=== PATIENT | female | born 1960 | race Caucasian/White ===

== ENCOUNTER 2017-06-29 17:35 | Emergency (ER) | payer OTHER ==
[2017-06-29 17:40] VITALS: BP 142/65; PULSE 118; TEMP 99.6; BMI 30.1
[2017-06-29] MEDS ORDERED: OXYCODONE/APAP 5/325MG COMBO TABLET PO ONE (18:04)
[2017-06-29] MEDS ORDERED: OXYCODONE/APAP 5/325MG COMBO TABLET ONE (18:10)
--- NOTE | 2017-06-29 18:19 | PDOC ---
"History of Present Illness - General Chief Complaint: Injury Stated Complaint: FALL Time Seen by Provider: 06/29/17 17:44 History Source: Patient Exam Limitations: No Limitations - History of Present Illness Initial Comments: 06/29/17 18:39 Chief complaint: Fall jumping over a flower pot on side walk on public strain abrasion to left side of face, left fifth finger right knee and right lower anterior leg pain under left eye History of present illness: Patient is a 57-year-old female insulin-dependent diabetic, GERD, hyperlipidemia, hypertension or today after she tried to jump over a flower pot on the public street and fell hitting her face and knees. Patient denies any head injury any loss consciousness, any change in vision level of alertness any nausea vomiting or any hemotympanum or any dizziness or change in ability to ambulate. Patient ports having pain under her left eye that is currently a 9 out of 10. And slight discomfort to her left fifth finger and her left lower leg that is currently a 4 out of 10. Patient denies any numbness of her left hand or fingers or left leg. Patient also has an abrasion to her right knee and right lower anterior leg. She denies being on any anticoagulants. She tetanus is up-to-date. Occurred: reports: just prior to arrival Severity: reports: moderate Pain Location: reports: face (abrasion under left eye, left maxilla), lower extremity (left lower leg raised tender area, abrasion rt. knee, rt. lower extremity), upper extremity (left 5th finger abrasion tenderness) Method of Injury: Yes: fall (after trying to jump over flower pot ) Modifying Factors: improves with: None Loss of Consciousness: no loss of consciousness Associated Symptoms (Fall): other (pain left 5th finger, left lower anterior leg , left infraorbital area tenderness) Past History - Past Medical History Allergies/Adverse Reactions: Allergies Allergy/AdvReac Type Severity Reaction Status Date / Time No Known Allergies Allergy Verified 06/29/17 17:39 Home Medications: Ambulatory Orders Glimepiride [Amaryl -] 8 mg PO DAILY@0700 10/26/12 Lisinopril [Prinivil] 20 mg PO DAILY 10/26/12 Metformin HCl [Glucophage -] 850 mg PO TID 10/26/12 Omeprazole [Prilosec (RX)] 20 mg PO BID 10/26/12 Pravastatin Sodium [Pravachol -] 40 mg PO HS 10/26/12 Sitagliptin Phosphate [Januvia] 100 mg PO DAILY 10/26/12 Aspirin [ASA -] 81 mg PO DAILY 03/04/13 Ascorbate Calcium [Vitamin C] 500 mg PO DAILY 07/14/14 Calcium Carb/Vitamin D3/Vit K1 [Calcium + D Soft Chewable Tab] 1 each PO DAILY 07/14/14 Cholecalciferol (Vitamin D3) [Vitamin D3] 1,000 unit PO DAILY 07/14/14 Fenofibrate Nanocrystallized [Tricor] 145 mg PO DAILY 07/14/14 Folic Acid - 1 mg PO DAILY 07/14/14 Insulin Glargine,Hum.rec.anlog [Lantus Solostar PEN -] 10 units SQ HS 07/14/14 Insulin Glargine,Hum.rec.anlog [Lantus Solostar PEN -] 15 units SQ AM 07/14/14 Insulin Lispro [Humalog] 0 unit SQ ASDIR 07/14/14 Iron 18 mg PO DAILY 07/14/14 Multivitamins [Multivit ([facility] Formulary)] 1 tab PO DAILY 07/14/14 Acetaminophen [Tylenol] 650 mg PO Q6H #30 tablet 11/14/15 Anemia: No Asthma: No Cancer: No Cardiac Disorders: No CVA: No COPD: No CHF: No Dementia: No Diabetes: Yes GI Disorders: Yes (GERD) Disorders: No HTN: Yes Hypercholesterolemia: Yes Liver Disease: No Seizures: No Thyroid Disease: No - Surgical History Abdominal Surgery: No Appendectomy: No Cardiac Surgery: No Cholecystectomy: Yes Gastric Stapling: No (BYPASS) Lung Surgery: No Neurologic Surgery: No Orthopedic Surgery: No - Immunization History Immunization Up to Date: Yes - Psycho/Social/Smoking Cessation Hx Anxiety: No Suicidal Ideation: No Smoking Status: No Smoking History: Never smoked Have you smoked in the past 12 months: No Number of Cigarettes Smoked Daily: 0 Hx Alcohol Use: No Drug/Substance Use Hx: No Substance Use Type: None Hx Substance Use Treatment: No Review of Systems - Review of Systems Able to Perform ROS?: Yes Constitutional: No: Symptoms Reported HEENTM: No: Symptoms Reported Respiratory: No: Symptoms reported Cardiac (ROS): No: Symptoms Reported ABD/GI: No: Symptoms Reported : No: Symptoms Reported Musculoskeletal: Yes: Joint Pain (left 5th finger, left infraorbital area, left anterior lower leg, left infraorbital area ), Joint Swelling (left anterior lower leg dime size area) Integumentary: Yes: Other (abrasion left side of face infraorbital area, maxilla , left 5th dorsal finger, rt. knee and rt.lower anterior leg abrasion) Neurological: Yes: Symptoms reported *Physical Exam - Vital Signs Last Vital Signs Temp Pulse Resp BP Pulse Ox 99.6 F 118 H 20 142/65 98 06/29/17 17:36 06/29/17 17:36 06/29/17 17:36 06/29/17 17:36 06/29/17 17:36 - Physical Exam General Appearance: Yes: Appropriately Dressed HEENT: positive: EOMI, MAILE, Normal ENT Inspection, Orbits (left infraorbital tenderness) Neck: negative: Tender, Lymphadenopathy (R), Lymphadenopathy (L), Rigidity, Tender lateral, Tender midline Respiratory/Chest: positive: Lungs Clear, Normal Breath Sounds. negative: Chest Tender, Respiratory Distress Cardiovascular: positive: Regular Rhythm, Regular Rate, S1, S2 Musculoskeletal: positive: Normal Inspection. negative: CVA Tenderness, CVA Tenderness (R), CVA Tenderness (L), Vertebral Tenderness Extremity: positive: Normal Capillary Refill, Normal Range of Motion (b/l knees , ankles, left hand all digits, b/l wrists), Tender (left 5th finger abrasion dorsal aspect, rt. knee anterior abrasion, tenderness left 5th finger pip jt, dip jt has full range of motion, b/l knees no tenderness full range of motion). negative: Normal Inspection Integumentary: positive: Other (abrasion left infraorbital area, left distal maxilla superfician one 2 cm and 2 others 1 cm each, rt.knee abrasion superfical 3.5cm x0.25n cm , left lower anterior leg abrasion superfical pea size, left 5th finger dorsal aspect abrasion superfical ) Procedures - Consent Consent obtained: From Patient - Additional Procedures Progress: 06/29/17 19:04 Cleanse on left fifth finger and right knee and right lower extremity and left side of face with Betadine and normal saline 0.9% dried areas and tiny amount of bacitracin ointment applied with a Band-Aid to all areas except for left sided face ED Treatment Course - Medications Given in the ED: ED Medications Discontinued Medications Generic Name Dose Route Start Last Admin Trade Name Silvia PRN Reason Stop Dose Admin Oxycodone/Acetaminophen 1 combo 06/29/17 18:04 06/29/17 18:12 Percocet 5/325 - PO 06/29/17 18:05 1 combo ONCE ONE Administration Medical Decision Making - Medical Decision Making 06/29/17 18:42 Patient is a 57-year-old female insulin-dependent diabetic, GERD, hyperlipidemia , hypertension or today after she tried to jump over a flower pot on the public street and fell hitting her face and knees. Patient denies any head injury any loss consciousness, any change in vision level of alertness any nausea vomiting or any hemotympanum or any dizziness or change in ability to ambulate. Patient ports having pain under her left eye that is currently a 9 out of 10. And slight discomfort to her left fifth finger and her left lower leg that is currently a 4 out of 10. Patient denies any numbness of her left hand or fingers or left leg. Patient also has an abrasion to her right knee and right lower anterior leg. She denies being on any anticoagulants. She tetanus is up-to -date. Fall abrasion left side of face abrasion left 5th finger contusion left lower leg anterior pain left infraorbital area R/O fracture pain left 5th finger r/o fracture pain left lower anterior leg r/o fracture Rule out orbital fracture on left PLAN: CT of orbital without contrast no orbital fx noted Dr. Coates xray left 5th finger, no fracture noted xray left tibia/fibia no fracture noted percocet 5mg/325mg po now Search Terms: Paula Knox, 1960 Search Date: 06/29/2017 07:03:26 PM The Drug Utilization Report below displays all of the controlled substance prescriptions, if any, that your patient has filled in the last twelve months. The information displayed on this report is compiled from pharmacy submissions to the Department, and accurately reflects the information as submitted by the pharmacies. This report was requested by: Gabriella Angelo | Reference #: [id number] Patient Name: Paula Knox Date: 1960 Address: [address] [place] [address] Sex: Female Rx Written Rx Dispensed Drug Quantity Days Supply Prescriber Name 06/04/2017 06/04/2017 oxycodone-acetaminophen 5-325 mg tab 90 30 Luis Reeder 06/29/17 19:26 06/29/17 19:51 06/30/17 18:39 06/30/17 18:40 *DC/Admit/Observation/Transfer Diagnosis at time of Disposition: Nasal bone fracture Abrasion of finger of left hand Qualifiers: Encounter type: initial encounter Qualified Code(s): S60.419A - Abrasion of unspecified finger, initial encounter Abrasion of face Qualifiers: Encounter type: initial encounter Qualified Code(s): S00.81XA - Abrasion of other part of head, initial encounter Abrasion of knee, right Qualifiers: Encounter type: initial encounter Qualified Code(s): S80.211A - Abrasion, right knee, initial encounter Contusion of lower leg, left Qualifiers: Encounter type: initial encounter Qualified Code(s): S80.12XA - Contusion of left lower leg, initial encounter - Discharge Dispostion Disposition: HOME Condition at time of disposition: Stable - Referrals Referrals: Alida Ramires MD [Primary Care Provider] - Yohan Lynn MD [Staff Physician] - - Patient Instructions Additional Instructions: You must follow-up with ENT (referral provided) within the next 2 days for evaluation of your nasal bone fracture. Wash abrasions with antibacterial soap and water pat dry twice daily and apply a tiny amount of bacitracin ointment keep area is covered with Band-Aids except when home and in bed. Return to emergency room if any redness and abrasions or any discharge from them or any fever develops. Elevate your left leg and apply ice to raised area as much as possible today and tomorrow. Take the pain medication that you have had previous prescribed for you."
--- NOTE | 2017-06-29 20:12 | PDOC ---
*Physical Exam - Vital Signs Last Vital Signs Temp Pulse Resp BP Pulse Ox 99.6 F 118 H 20 142/65 98 06/29/17 17:36 06/29/17 17:36 06/29/17 17:36 06/29/17 17:36 06/29/17 17:36 - Physical Exam Comments: 06/29/17 20:07 Sign-out received from outgoing fast track provider Gi. Pt interviewed and examined. Awaiting CT scan. CT scan: There is no evidence of acute fracture. There is a mildly displaced left nasal bone fracture without overlying soft tissue swelling consistent with sequela of previous fracture. 2. The orbital contents are unremarkable in appearance. 3. The paranasal and mastoid sinuses are unremarkable in appearance. 4. Left facial soft tissue swelling. Read by: Dagmar Valente MD ENT referral provided. Advised patient to f/u within the next 1-2 days for evaluation of nasal bone fracture. Advised patient of signs and symptoms for return to ER; patient verbalized understanding and agrees to plan. ED Treatment Course - Medications Given in the ED: ED Medications Discontinued Medications Generic Name Dose Route Start Last Admin Trade Name Freq PRN Reason Stop Dose Admin Oxycodone/Acetaminophen 1 combo 06/29/17 18:04 06/29/17 18:12 Percocet 5/325 - PO 06/29/17 18:05 1 combo ONCE ONE Administration *DC/Admit/Observation/Transfer Diagnosis at time of Disposition: Abrasion of finger of left hand Qualifiers: Encounter type: initial encounter Qualified Code(s): S60.419A - Abrasion of unspecified finger, initial encounter Abrasion of face Qualifiers: Encounter type: initial encounter Qualified Code(s): S00.81XA - Abrasion of other part of head, initial encounter Abrasion of knee, right Qualifiers: Encounter type: initial encounter Qualified Code(s): S80.211A - Abrasion, right knee, initial encounter Contusion of lower leg, left Qualifiers: Encounter type: initial encounter Qualified Code(s): S80.12XA - Contusion of left lower leg, initial encounter Nasal bone fracture Qualifiers: Encounter type: sequela Fracture type: closed Qualified Code(s): S02.2XXS - Fracture of nasal bones, sequela - Discharge Dispostion Disposition: HOME Condition at time of disposition: Stable Admit: No - Referrals Referrals: Alida Ramires MD [Primary Care Provider] - Yohan Lynn MD [Staff Physician] - - Patient Instructions Additional Instructions: You must follow-up with ENT (referral provided) within the next 2 days for evaluation of your nasal bone fracture. Wash abrasions with antibacterial soap and water pat dry twice daily and apply a tiny amount of bacitracin ointment keep area is covered with Band-Aids except when home and in bed. Return to emergency room if any redness and abrasions or any discharge from them or any fever develops. Elevate your left leg and apply ice to raised area as much as possible today and tomorrow. Take the pain medication that you have had previous prescribed for you. - Post Discharge Activity
== END 2017-06-29 20:23 | disposition home or self-care (01) ==
LOC: JERFT 17:35
DX: S00.83XA Contusion of other part of head, initial encounter (principal); W18.39XA Other fall on same level, initial encounter; Y93.39 Activity, other involving climbing, rappelling and jumping off; Y92.480 Sidewalk as the place of occurrence of the external cause; I10 Essential (primary) hypertension; E11.9 Type 2 diabetes mellitus without complications; Z79.4 Long term (current) use of insulin; Z79.84 Long term (current) use of oral hypoglycemic drugs; K21.9 Gastro-esophageal reflux disease without esophagitis; E78.5 Hyperlipidemia, unspecified
CPT/HCPCS: 70480-TC; 73140-TC-LT; 73590-TC-LT; 99281-25

== ENCOUNTER 2017-10-20 12:26 | Emergency (ER) | payer OTHER ==
[2017-10-20 12:47] VITALS: BP 124/78; PULSE 99; TEMP 99.4; BMI 33.6
--- NOTE | 2017-10-20 13:32 | PDOC ---
History of Present Illness - General Chief Complaint: Cold Symptoms Stated Complaint: FLU LIKE SYMPTOMS Time Seen by Provider: 10/20/17 13:31 - History of Present Illness Initial Comments: 10/20/17 13:31 CHIEF COMPLAINT: UTI, "flu" HISTORY OF PRESENT ILLNESS: 57 yo F with hx of IDDM, HTN, HLD, arthritis ( followed by pain management), and recurrent UTIs presents to fast track with "flu symptoms" and complaints that she "has a UTI." Patient states she has had body aches, sneezing, nasal cngestion, and cough x 1 week. She denies any nausea, vomiting, or diarrhea. PAST MEDICAL HISTORY: Denies past medical history FAMILY HISTORY: Denies SOCIAL HISTORY: Denies tobacco, alcohol, illicit drug use. SURGICAL HISTORY: Denies ALLERGIES: No known drug allergies REVIEW OF SYSTEMS General/Constitutional: Denies fever or chills. Denies weakness. HEENT: Sore throat, runny nose, congestion x 1 week. Cardiovascular: Denies chest pain or shortness of breath. Respiratory: Cough x 1 week. Denies wheezing, or hemoptysis. Gastrointestinal: Denies nausea, vomiting, diarrhea or constipation. Denies rectal bleeding. Genitourinary: Urinary pain and frequency, left flank pain. Musculoskeletal: Chronic back pain secondary to arthritis. Denies joint or muscle swelling or pain. Denies neck or back pain. Skin and breasts: Denies rash or easy bruising. PHYSICAL EXAM General Appearance: Well-appearing, appropriately dressed. No apparent distress. HEENT: EOMI, PERRLA. No conjunctival pallor. No photophobia, scleral icterus. Neck: Supple. Trachea midline. No tenderness, rigidity, carotid bruit, stridor , lymphadenopathy, or thyromegaly. Respiratory/Chest: Lungs CTAB. No shortness of breath, chest tenderness, respiratory distress, accessory muscle use. No crackles, rales, rhonchi, stridor , wheezing, dullness Cardiovascular: RRR. S1, S2. Gastrointestinal/Abdominal: Normal bowel sounds. Abdomen soft, non-distended. No tenderness or rebound tenderness. No organomegaly, pulsatile mass, guarding , hernia, hepatomegaly, splenomegaly. Lymphatic: No adenopathy, tenderness. Musculoskeletal/Extremities: L CVA tenderness. Normal inspection. FROM of all extremities, normal capillary refill. Pelvis Stable. No tenderness to extremities, pedal edema, swelling, erythema or deformity. Integumentary: Appropriate color, dry, warm. 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 Fully oriented, alert. Appropriate mood/affect. Motor strength 5/5. No appreciable EOM palsy, facial droop or sensory deficit. Past History - Past Medical History Allergies/Adverse Reactions: Allergies Allergy/AdvReac Type Severity Reaction Status Date / Time No Known Allergies Allergy Verified 10/20/17 12:43 Home Medications: Ambulatory Orders Glimepiride [Amaryl -] 8 mg PO DAILY@0700 10/26/12 Lisinopril [Prinivil] 20 mg PO DAILY 10/26/12 Metformin HCl [Glucophage -] 850 mg PO TID 10/26/12 Omeprazole [Prilosec (RX)] 20 mg PO BID 10/26/12 Pravastatin Sodium [Pravachol -] 40 mg PO HS 10/26/12 Sitagliptin Phosphate [Januvia] 100 mg PO DAILY 10/26/12 Aspirin [ASA -] 81 mg PO DAILY 03/04/13 Ascorbate Calcium [Vitamin C] 500 mg PO DAILY 07/14/14 Calcium Carb/Vitamin D3/Vit K1 [Calcium + D Soft Chewable Tab] 1 each PO DAILY 07/14/14 Cholecalciferol (Vitamin D3) [Vitamin D3] 1,000 unit PO DAILY 07/14/14 Fenofibrate Nanocrystallized [Tricor] 145 mg PO DAILY 07/14/14 Folic Acid - 1 mg PO DAILY 07/14/14 Insulin Glargine,Hum.rec.anlog [Lantus Solostar PEN -] 10 units SQ HS 07/14/14 Insulin Glargine,Hum.rec.anlog [Lantus Solostar PEN -] 15 units SQ AM 07/14/14 Insulin Lispro [Humalog] 0 unit SQ ASDIR 07/14/14 Iron 18 mg PO DAILY 07/14/14 Multivitamins [Multivit ([facility] Formul[facility])] 1 tab PO DAILY 07/14/14 Acetaminophen [Tylenol] 650 mg PO Q6H #30 tablet 11/14/15 Fluconazole [Diflucan] 150 mg PO ONCE #1 tablet 10/20/17 Pseudoephedrine HCl [Sudafed 12 Hour] 120 mg PO BID #14 tablet.er 10/20/17 Anemia: No Asthma: No Cancer: No Cardiac Disorders: No CVA: No COPD: No CHF: No Dementia: No Diabetes: Yes (iddm) GI Disorders: Yes (GERD) Disorders: No HTN: Yes Hypercholesterolemia: Yes Liver Disease: No Seizures: No Thyroid Disease: No - Surgical History Abdominal Surgery: No Appendectomy: No Cardiac Surgery: No Cholecystectomy: Yes Gastric Stapling: No (BYPASS) Lung Surgery: No Neurologic Surgery: No Orthopedic Surgery: No - Immunization History Immunization Up to Date: Yes - Suicide/Smoking/Psychosocial Hx Smoking Status: No Smoking History: Never smoked Have you smoked in the past 12 months: No Number of Cigarettes Smoked Daily: 0 Information on smoking cessation initiated: No Hx Alcohol Use: No Drug/Substance Use Hx: No Substance Use Type: None Hx Substance Use Treatment: No *Physical Exam - Vital Signs Last Vital Signs Temp Pulse Resp BP Pulse Ox 99.4 F 99 H 18 124/78 100 10/20/17 12:44 10/20/17 12:44 10/20/17 12:44 10/20/17 12:44 10/20/17 12:44 Medical Decision Making - Medical Decision Making 10/20/17 14:02 57 yo F with hx of IDDM, HTN, HLD, arthritis (followed by pain management), and recurrent UTIs presents to fast track with "flu symptoms" and complaints that she "has a UTI." -flu swab -ua, ucx Patient c/o of severe pain to back accompanied by severe L flank pain. Patient has home med of 10 mg Percocet per pain management, no signs of narcotic abuse per [facility]. Will give 1 Percocet for pain at this time. 10/20/17 14:29 UA negative for UTI. Patient now reports that she also has had "like yeast" discharge and that she has been using OTC creams without relief. -150 mg Diflucan *DC/Admit/Observation/Transfer Diagnosis at time of Disposition: Vaginal candidiasis, Viral syndrome - Discharge Dispostion Disposition: HOME Condition at time of disposition: Stable Admit: No - Prescriptions Prescriptions: Fluconazole [Diflucan] 150 mg PO ONCE #1 tablet Pseudoephedrine HCl [Sudafed 12 Hour] 120 mg PO BID #14 tablet.er - Referrals - Patient Instructions Printed Discharge Instructions: DI for Vaginal Yeast Infection, DI for Viral Syndrome Additional Instructions: Please get plenty of rest and drink plenty of fluids for adequate hydration. Take Motrin as needed for fever or bodyaches. Follow up with your primary care doctor if symptoms persist past 3-5 days. Continue taking the Percocet as prescribed by you pain management doctor. If you develop fever unrelieved by Motrin, vomiting, diarrhea, or any new or worsening symptoms, please return to the ER. - Post Discharge Activity
[2017-10-20 13:48] LABS: URINE APPEARANCE CLEAR; URINE BILIRUBIN NEGATIVE (NEGATIVE); URINE BLOOD NEGATIVE (NEGATIVE); URINE COLOR STRAW; URINE GLUCOSE (UA) NEGATIVE (NEGATIVE); URINE KETONE NEGATIVE (NEGATIVE); URINE NITRITE NEGATIVE (NEGATIVE); URINE PROTEIN NEGATIVE (NEGATIVE); URINE UROBILINOGEN NEGATIVE mg/dL (0.2-1.0)
[2017-10-20 18:15] LABS: URINE LEUK ESTERASE Negative (NEGATIVE)
== END 2017-10-20 15:08 | disposition home or self-care (01) ==
LOC: JERFT 12:26
DX: B37.3 Candidiasis of vulva and vagina (principal); B34.9 Viral infection, unspecified; I10 Essential (primary) hypertension; E11.9 Type 2 diabetes mellitus without complications; Z79.4 Long term (current) use of insulin; Z79.84 Long term (current) use of oral hypoglycemic drugs; E78.00 Pure hypercholesterolemia, unspecified; K21.9 Gastro-esophageal reflux disease without esophagitis
CPT/HCPCS: 81003; 87086; 87804; 99281-25

== ENCOUNTER 2018-01-19 12:31 | Emergency (ER) | payer OTHER ==
--- NOTE | 2018-01-19 12:51 | PDOC ---
History of Present Illness - General History Source: Patient Exam Limitations: No Limitations - History of Present Illness Initial Comments: 01/19/18 14:32 The patient is a 57 year old female with a significant PMH of hypertension, hyperlipidemia, GERD, and IDDM who presents to the emergency department with bilateral leg swelling and pain for the past 2 days. The patient states the swelling is worse on the left leg with associated warmth, swelling preceded pain. The patient denies any recent trauma. The patient states she had the flu approximately 3 weeks ago but is still experiencing dry cough. The patient reports she had not been taking her HTN meds for about a month. The patient denies chest pain, shortness of breath, headache and dizziness. Denies fever, chills, nausea, vomit, diarrhea and constipation. Denies dysuria, frequency, urgency and hematuria. Allergies: NKA Past surgical history: Cholecystectomy Social history: No reported alcohol, drug, or cigarette use. <Capri Bain - Last Filed: 01/19/18 14:42> <Dagmar Cotton - Last Filed: 01/20/18 11:13> - General Chief Complaint: Edema Stated Complaint: SWELLING FEET Time Seen by Provider: 01/19/18 12:51 Past History <Capri Bain - Last Filed: 01/19/18 14:42> - Past Medical History Anemia: No Asthma: No Cancer: No Cardiac Disorders: No CVA: No COPD: No CHF: No Dementia: No Diabetes: Yes (iddm) GI Disorders: Yes (GERD) Disorders: No HTN: Yes Hypercholesterolemia: Yes Liver Disease: No Seizures: No Thyroid Disease: No - Surgical History Abdominal Surgery: No Appendectomy: No Cardiac Surgery: No Cholecystectomy: Yes Gastric Stapling: No (BYPASS) Lung Surgery: No Neurologic Surgery: No Orthopedic Surgery: No - Immunization History Immunization Up to Date: Yes - Suicide/Smoking/Psychosocial Hx Smoking Status: No Smoking History: Never smoked Have you smoked in the past 12 months: No Number of Cigarettes Smoked Daily: 0 Hx Alcohol Use: No Drug/Substance Use Hx: No Substance Use Type: None Hx Substance Use Treatment: No <Dagmar Cotton - Last Filed: 01/20/18 11:13> - Past Medical History Allergies/Adverse Reactions: Allergies Allergy/AdvReac Type Severity Reaction Status Date / Time No Known Allergies Allergy Verified 01/19/18 12:53 Home Medications: Ambulatory Orders Glimepiride [Amaryl -] 8 mg PO DAILY@0700 10/26/12 Lisinopril [Prinivil] 20 mg PO DAILY 10/26/12 Omeprazole [Prilosec (RX)] 20 mg PO BID 10/26/12 Pravastatin Sodium [Pravachol -] 40 mg PO HS 10/26/12 Sitagliptin Phosphate [Januvia] 100 mg PO DAILY 10/26/12 metFORMIN HCL [Glucophage -] 850 mg PO TID 10/26/12 Aspirin [ASA -] 81 mg PO DAILY 03/04/13 Calcium Carb/Vitamin D3/Vit K1 [Calcium + D Soft Chewable Tab] 1 each PO DAILY 07/14/14 Cholecalciferol (Vitamin D3) [Vitamin D3] 1,000 unit PO DAILY 07/14/14 Fenofibrate Nanocrystallized [Tricor] 145 mg PO DAILY 07/14/14 Insulin Glargine,Hum.rec.anlog [Lantus Solostar PEN -] 20 units SQ HS 07/14/14 Insulin Lispro [Humalog] 0 unit SQ ASDIR 07/14/14 Multivitamins [Multivit ([facility] Formulary)] 1 tab PO DAILY 07/14/14 Lisinopril 20 mg PO DAILY #30 tablet 01/19/18 Pravastatin Sodium [Pravachol (Nf)] 40 mg PO HS #30 tablet 01/19/18 Review of Systems - Review of Systems Able to Perform ROS?: Yes Comments:: 01/19/18 14:42 GENERAL/CONSTITUTIONAL: No fever or chills. No weakness. HEAD, EYES, EARS, NOSE AND THROAT: No change in vision. No ear pain or discharge. No sore throat. CARDIOVASCULAR: No chest pain or shortness of breath. RESPIRATORY: (+) Dry cough. No wheezing or hemoptysis. GASTROINTESTINAL: No nausea, vomiting, diarrhea or constipation. GENITOURINARY: No dysuria, frequency, or change in urination. MUSCULOSKELETAL: (+) Bilateral leg swelling and pain, L>R. No neck or back pain. SKIN: No rash NEUROLOGIC: No headache, vertigo, loss of consciousness, or change in strength/ sensation. ENDOCRINE: No increased thirst. No abnormal weight change. HEMATOLOGIC/LYMPHATIC: No anemia, easy bleeding, or history of blood clots. ALLERGIC/IMMUNOLOGIC: No hives or skin allergy. <Capri Bain - Last Filed: 01/19/18 14:42> *Physical Exam - Vital Signs Last Vital Signs Temp Pulse Resp BP Pulse Ox 99.9 F H 92 H 16 193/81 100 01/19/18 12:51 01/19/18 12:51 01/19/18 12:51 01/19/18 12:51 01/19/18 12:51 <Capri Bain - Last Filed: 01/19/18 14:42> - Physical Exam Comments: GENERAL: Awake, alert, and fully oriented, in no acute distress HEAD: No signs of trauma EYES: PERRLA, EOMI, sclera anicteric, conjunctiva clear ENT: Auricles normal inspection, hearing grossly normal, nares patent, oropharynx clear without exudates. Moist mucosa NECK: Normal ROM, supple, no lymphadenopathy, JVD, or masses LUNGS: Breath sounds equal, clear to auscultation bilaterally. No wheezes, and no crackles HEART: Regular rate and rhythm, normal S1 and S2, no murmurs, rubs or gallops ABDOMEN: Soft, nontender, normoactive bowel sounds. No guarding, no rebound. No masses EXTREMITIES: Normal range of motion, 1+ pitting edema to mid-lott B/L. No clubbing or cyanosis. No cords, erythema, or tenderness NEUROLOGICAL: Cranial nerves II through XII grossly intact. Normal speech, normal gait SKIN: Warm, Dry, normal turgor, no rashes or lesions noted. <Dagmar Cotton - Last Filed: 01/20/18 11:13> ED Treatment Course - LABORATORY CBC & Chemistry Diagram: 01/19/18 15:20 01/19/18 15:20 <Dagmar Cotton - Last Filed: 01/20/18 11:13> Medical Decision Making - Medical Decision Making No signs of cellulitis on exam. She has dependent edema that is equal bilaterally. BNP is not significantly elevated, no signs of kidney failure. Will refer to PMD outpatient, as she has an appointment in 2 days. <Dagmar Cotton - Last Filed: 01/20/18 11:13> *DC/Admit/Observation/Transfer <Capri Bain - Last Filed: 01/19/18 14:42> - Discharge Dispostion Admit: No <Dagmar Cotton - Last Filed: 01/20/18 11:13> Diagnosis at time of Disposition: Peripheral edema - Discharge Dispostion Disposition: HOME Condition at time of disposition: Stable - Prescriptions Prescriptions: Lisinopril 20 mg PO DAILY #30 tablet Pravastatin Sodium [Pravachol (Nf)] 40 mg PO HS #30 tablet - Patient Instructions Printed Discharge Instructions: DI for Peripheral Edema -- Bilateral
[2018-01-19 12:54] VITALS: PULSE 92; TEMP 99.9; BMI 35.4
[2018-01-19] MEDS ORDERED: LISINOPRIL 20 MG TABLET (FP) PO ONE (14:07)
[2018-01-19 15:42] LABS: BASO % 0.6 % (0-2.0); EOS % 2.9 % (0-4.5); HEMATOCRIT 32.5 % (32.4-45.2); HEMOGLOBIN 9.9 GM/dL (10.7-15.3); LYMPH % 23.5 % (8-40); MCHC 30.4 g/dl (32.0-36.0); MEAN CELL VOLUME 69.2 fl (80-96); MEAN PLT VOLUME 8.2 fl (7.5-11.1); MONO % 5.9 % (3.8-10.2); NEUT % 67.1 % (42.8-82.8); PLATELET COUNT 260 K/MM3 (134-434); RDW 18.2 % (11.6-15.6); WHITE BLOOD COUNT 10.2 K/mm3 (4.0-10.0)
[2018-01-19 15:45] LABS: ADD RBC MORPHOLOGY YES
[2018-01-19 15:58] LABS: URINE APPEARANCE CLEAR; URINE BILIRUBIN NEGATIVE (NEGATIVE); URINE BLOOD NEGATIVE (NEGATIVE); URINE COLOR STRAW; URINE GLUCOSE (UA) 3+ (NEGATIVE); URINE KETONE TRACE (NEGATIVE); URINE LEUK ESTERASE NEGATIVE (NEGATIVE); URINE NITRITE NEGATIVE (NEGATIVE); URINE PROTEIN NEGATIVE (NEGATIVE); URINE UROBILINOGEN NEGATIVE mg/dL (0.2-1.0)
[2018-01-19 16:08] LABS: ALBUMIN 4.2 g/dl (3.4-5.0); ANION GAP 12 (8-16); BLOOD UREA NITROGEN 21 mg/dL (7-18); CALCIUM 8.7 mg/dL (8.5-10.1); CHLORIDE 101 mmol/L (98-107); CO2 23 mmol/L (21-32); CREATININE 0.9 mg/dL (0.55-1.02); GLUCOSE,RANDOM 249 mg/dL (74-106); POTASSIUM 5.1 mmol/L (3.5-5.1); SGOT/AST 20 U/L (15-37); SGPT/ALT 25 U/L (12-78); SODIUM 136 mmol/L (136-145)
[2018-01-19] MEDS ORDERED: LISINOPRIL 20 MG TABLET (FP) ONE (16:11)
[2018-01-19 16:13] LABS: ALK PHOS 84 U/L (45-117); BILIRUBIN,TOTAL 0.3 mg/dL (0.2-1.0); N-TERMINAL BNP 176.41 pg/ml (5-125); TOT PROT 7.3 g/dl (6.4-8.2)
[2018-01-19 17:03] VITALS: BP 164/85
[2018-01-19 18:43] LABS: ANISOCYTOSIS 2+
--- NOTE | 2018-01-21 17:11 | EKG ---
Test Reason : Blood Pressure : / mmHG Vent. Rate : 084 BPM Atrial Rate : 084 BPM P-R Int : 128 ms QRS Dur : 070 ms QT Int : 356 ms P-R-T Axes : -01 009 021 degrees QTc Int : 420 ms NORMAL SINUS RHYTHM LOW VOLTAGE QRS SEPTAL INFARCT , AGE UNDETERMINED ABNORMAL ECG WHEN COMPARED WITH ECG OF 14-JUL-2014 15:53, SINUS RHYTHM HAS REPLACED JUNCTIONAL RHYTHM QT HAS SHORTENED Confirmed by DEION TARANGO, ENRICO ([id number]) on 01/21/2018 5:11:08 PM Referred By: Confirmed By:ENRICO ALBARRAN MD
== END 2018-01-19 17:01 | disposition home or self-care (01) ==
LOC: JER 12:31
DX: R60.0 Localized edema (principal); I10 Essential (primary) hypertension; E11.9 Type 2 diabetes mellitus without complications; Z79.4 Long term (current) use of insulin; Z79.84 Long term (current) use of oral hypoglycemic drugs; E78.00 Pure hypercholesterolemia, unspecified
CPT/HCPCS: 36415; 71046-TC-FY; 80053; 81003; 83880; 85025; 87086; 93005; 93010; 99282-25

== ENCOUNTER 2018-06-25 12:28 | Inpatient (IN) | payer OTHER ==
[2018-06-25] MEDS ORDERED: SODIUM CHLORIDE 1,000 ML IV STA ×2 (12:52→15:57)
--- NOTE | 2018-06-25 12:52 | PDOC ---
History of Present Illness - General Chief Complaint: Blood Sugar Problem Stated Complaint: SEPTIC Time Seen by Provider: 06/25/18 12:39 - History of Present Illness Initial Comments: 06/25/18 13:46 Patient is a 58-year-old female with past medical history of insulin-dependent diabetes, hypertension, hyperlipidemia, GERD, opioid dependence, who presents to the emergency department today with fatigue and weakness for one month. Patient has a senior software architect who is at bedside at this time. The reproductive healthcare assistant states that the patient has been feeling ill for the past month and appeared pale and weak upon his visit today. He reports that she has been having diarrhea for over a month. She had 3 loose stools between the hours of 10 and 12 today. Patient also admits to abdominal pain. She states that the abdominal pain is diffuse but mostly in the right lower quadrant. She denies fevers, chills, short of breath, difficulty breathing. Denies frequency and urgency. Given her weakness and 911 was called and she was found to be hypotensive at 60/40. Patient was given 1500 mL of fluids and blood pressure came up to 88/60. Upon further discussion with the reproductive healthcare assistant, she's been noncompliant with doctor's appointments. She was informed that she had a hemoglobin of 6 and needed transfusion however she never went to an emergency department to receive treatment. She's also had poor control of her blood sugar recently to which the doctors were changing her medications. Past History - Travel Traveled outside of the country in the last 30 days: No Close contact w/someone who was outside of country & ill: No - Past Medical History Allergies/Adverse Reactions: Allergies Allergy/AdvReac Type Severity Reaction Status Date / Time No Known Allergies Allergy Verified 01/19/18 12:53 Home Medications: Ambulatory Orders Glimepiride [Amaryl -] 8 mg PO DAILY@0700 10/26/12 Lisinopril [Prinivil] 10 mg PO DAILY 10/26/12 Pravastatin Sodium [Pravachol -] 80 mg PO HS 10/26/12 Sitagliptin Phosphate [Januvia] 100 mg PO DAILY 10/26/12 metFORMIN HCL [Glucophage -] 850 mg PO TID 10/26/12 Calcium Carb/Vitamin D3/Vit K1 [Calcium + D Soft Chewable Tab] 1 each PO DAILY 07/14/14 Cholecalciferol (Vitamin D3) [Vitamin D3] 1,000 unit PO DAILY 07/14/14 Fenofibrate Nanocrystallized [Tricor] 145 mg PO DAILY 07/14/14 Insulin Glargine,Hum.rec.anlog [Lantus Solostar PEN -] 23 units SQ HS 07/14/14 Insulin Lispro [Humalog] 5 unit SQ AC 07/14/14 Multivitamins [Multivit ([facility] Formulary)] 1 tab PO DAILY 07/14/14 Acarbose [Precose -] 25 mg PO TID 06/25/18 Diclofenac Sodium 50 mg PO BID 06/25/18 Duloxetine HCl [Cymbalta] 60 mg PO DAILY 06/25/18 Oxycodone HCl/Acetaminophen [Endocet 10-325 mg Tablet] 1 each PO BID 06/25/18 Anemia: No Asthma: No Cancer: No Cardiac Disorders: No CVA: No COPD: No CHF: No Dementia: No Diabetes: Yes (iddm) GI Disorders: Yes (GERD) Disorders: No HTN: Yes Hypercholesterolemia: Yes Liver Disease: No Seizures: No Thyroid Disease: No - Surgical History Abdominal Surgery: No Appendectomy: No Cardiac Surgery: No Cholecystectomy: Yes Gastric Stapling: No (BYPASS) Lung Surgery: No Neurologic Surgery: No Orthopedic Surgery: No - Immunization History Immunization Up to Date: Yes - Suicide/Smoking/Psychosocial Hx Smoking Status: No Smoking History: Never smoked Have you smoked in the past 12 months: No Number of Cigarettes Smoked Daily: 0 Hx Alcohol Use: No Drug/Substance Use Hx: Yes Substance Use Type: None, Opiates Hx Substance Use Treatment: No Review of Systems - Review of Systems Able to Perform ROS?: Yes Comments:: 06/25/18 13:43 CONSTITUTIONAL: Present: weakness, loss of appetite Absent: chills, diaphoresis, malaise, HEENT: Absent: rhinorrhea, nasal congestion, throat pain, throat swelling, difficulty swallowing, mouth swelling, ear pain, eye pain, visual Changes CARDIOVASCULAR: Absent: chest pain, loss of consciousness, palpitations, irregular heart rate, peripheral edema RESPIRATORY: Absent: cough, shortness of breath, dyspnea with exertion, orthopnea, wheezing, stridor, hemoptysis GASTROINTESTINAL: Present: abdominal pain, nausea, vomiting, diarrhea Absent: abdominal distension , constipation, melena, hematochezia GENITOURINARY: Absent: dysuria, frequency, urgency, hesitancy, hematuria, flank pain, genital pain MUSCULOSKELETAL: Absent: myalgia, arthralgia, joint swelling SKIN: Absent: rash, itching, pallor HEMATOLOGIC/IMMUNOLOGIC: Present: low blood counts Absent: easy bleeding, easy bruising, lymphadenopathy , frequent infections ENDOCRINE: Absent: unexplained weight gain, unexplained weight loss, heat intolerance, cold intolerance NEUROLOGIC: Absent: headache, focal weakness or paresthesias, dizziness, unsteady gait, seizure, mental status changes, bladder or bowel incontinence PSYCHIATRIC: Absent: anxiety, depression, suicidal or homicidal ideation, hallucinations. Is the patient limited Georgian proficient: No *Physical Exam - Vital Signs Last Vital Signs Temp Pulse Resp BP Pulse Ox 99.2 F 101 H 18 88/57 100 06/25/18 12:44 06/25/18 12:44 06/25/18 12:44 06/25/18 12:44 06/25/18 12:44 - Physical Exam Comments: 06/25/18 13:43 GENERAL: Well developed, well nourished. Awake and alert. No acute distress. HEENT: Normocephalic, atraumatic. PERRLA, EOMI. (+) conjunctival pallor. Sclera are non -icteric. Dry mucous membranes. Oropharynx is clear. NECK: Supple. Full ROM. No JVD. Carotid pulses 2+ and symmetric, without bruits. No thyromegaly. No lymphadenopathy. CARDIOVASCULAR: Regular rate and rhythm. No murmurs, rubs, or gallops. Distal pulses are 2+ and symmetric. PULMONARY: No evidence of respiratory distress. Lungs clear to auscultation bilaterally. No wheezing, rales or rhonchi. ABDOMINAL: Distended, TTP RLQ. Soft. No rebound or guarding. No organomegaly. Normoactive bowel sounds. MUSCULOSKELETAL Normal range of motion at all joints. No bony deformities or tenderness. No CVA tenderness. EXTREMITIES: No cyanosis. No clubbing. No edema. No calf tenderness. SKIN: Warm and dry. Normal capillary refill. No rashes. No jaundice. NEUROLOGICAL: Alert, awake, appropriate. Cranial nerves 2-12 intact. No deficits to light touch and temperature in face, upper extremities and lower extremities. No motor deficits in the in face, upper extremities and lower extremities. Normoreflexic in the upper and lower extremities. Normal speech. Toes are down- going bilaterally. Gait is normal without ataxia. PSYCHIATRIC: Cooperative. Good eye contact. Appropriate mood and affect. ED Treatment Course - LABORATORY CBC & Chemistry Diagram: 06/26/18 05:45 06/26/18 05:45 Medical Decision Making - Critical Care Time Total Critical Care Time (minutes): 40 Critical Care Statement: The care of this patient involved high complexity decision making to prevent further life threatening deterioration of the patient 's condition and/or to evaluate & treat vital organ system(s) failure or risk of failure. - Medical Decision Making 06/25/18 13:46 Patient is a 58-year-old female past medical history of insulin-dependent diabetes, hypertension, GERD, hyperlipidemia, who presents to the emergency department today for weakness and hypotension. On exam patient is alert and oriented 3 and answering all questions. Breathing is nonlabored and lungs sounds are clear bi laterally. Patient has diffuse tenderness to the abdomen and appears distended. She states that her abdomen is usually this large. Differential diagnosis is very broad at this time given patient's multiple medical comorbidities as well as lack of medical treatment. Differential diagnosis includes but is not limited to sepsis, DKA, ACS, anemia. Sepsis source possibilities, abdomen (colitis, appendicitis, diverticulitis), UTI? Sepsis order set initiated at this time. H&H critically low at 5.5. Will order 2 units of this time. WBC's 14, emprically start vancomycin and zosyn. Patient to be admitted Sign out given to Dr. Pace and Dr. Caruso at this time. Pending labs, and admission *DC/Admit/Observation/Transfer Diagnosis at time of Disposition: Anemia, Lactic acid acidosis, Leukocytosis, Hypotension - Discharge Dispostion Condition at time of disposition: Stable - Referrals - Patient Instructions - Post Discharge Activity
[2018-06-25 13:26] LABS: VENOUS PC02 31.4 mmHg (38-52); VENOUS PH 7.21 (7.32-7.42); VENOUS PO2 50.5 mmHg (28-48)
[2018-06-25 13:35] LABS: BASO % 0.3 % (0-2.0); EOS % 0.2 % (0-4.5); HEMATOCRIT 20.9 % (32.4-45.2); MCHC 28.3 g/dl (32.0-36.0); MEAN CELL VOLUME 68.9 fl (80-96); MEAN PLT VOLUME 8.3 fl (7.5-11.1); MONO % 7.5 % (3.8-10.2); PLATELET COUNT 502 K/MM3 (134-434); RBC 3.04 M/mm3 (3.60-5.2); RDW 20.2 % (11.6-15.6); WHITE BLOOD COUNT 14.3 K/mm3 (4.0-10.0)
[2018-06-25] MEDS ORDERED: ACETAMINOPHEN 1000 MG/100 ML VIAL (NON FORMULARY) IVPB ONE (13:38)
[2018-06-25 13:52] LABS: MCH 19.5 pg (25.7-33.7)
[2018-06-25 13:53] LABS: HEMOGLOBIN 5.9 GM/dL (10.7-15.3)
[2018-06-25 13:54] LABS: INR 2.16 (0.82-1.09); PROTHROMBIN TIME (PATIENT) 24.4 SEC (9.7-13.0)
[2018-06-25] MEDS ORDERED: PIPERACILLIN/TAZOB 3.375 GM 3.375 GM in DEXTROSE 5%-WATER - 50 ML IVPB ONE (13:55)
[2018-06-25] MEDS ORDERED: ACETAMINOPHEN INJECTION 100 ML IVPB ONE (13:56)
[2018-06-25] MEDS ORDERED: VANCOMYCIN 1,000 MG in DEXTROSE 5%-WATER - 250 ML IVPB ONE (13:56)
[2018-06-25 13:57] LABS: ACTIVATED PTT 27.5 SECONDS (25.2-36.5)
[2018-06-25 13:59] LABS: ALBUMIN 2.4 g/dl (3.4-5.0); ANION GAP 16 (8-16); BLOOD UREA NITROGEN 65 mg/dL (7-18); CHLORIDE 105 mmol/L (98-107); CO2 14 mmol/L (21-32); GLUCOSE,RANDOM 266 mg/dL (74-106); POTASSIUM 5.9 mmol/L (3.5-5.1); SODIUM 135 mmol/L (136-145)
[2018-06-25 14:05] LABS: ALK PHOS 39 U/L (45-117); BILIRUBIN,TOTAL 0.3 mg/dL (0.2-1.0); CREATININE 3.2 mg/dL (0.55-1.02); SGOT/AST 35 U/L (15-37); SGPT/ALT 24 U/L (12-78); TOT PROT 5.1 g/dl (6.4-8.2)
[2018-06-25] MEDS ORDERED: VANCOMYCIN 1 GRAM (PRE-DOCKED) 1,000 MG/250 ML BAG IVPB ONE (14:14)
[2018-06-25] MEDS ORDERED: PIPERACILLIN/TAZOB 3.375 GM 3.375 GM/50 ML BAG IVPB ONE (14:14)
--- NOTE | 2018-06-25 14:18 | PDOC ---
*Physical Exam - Vital Signs Last Vital Signs Temp Pulse Resp BP Pulse Ox 99.4 F 102 H 18 98/45 100 06/25/18 13:18 06/25/18 14:12 06/25/18 12:44 06/25/18 14:12 06/25/18 12:44 - Physical Exam Comments: 06/25/18 14:42 Appearance: sitting comfortably. HEENT: head is normocephalic, atraumatic. EOMI. PERRLA. pallor noted to conjuntiva. Neck: supple without lymphadenopathy Heart: regular rhythm. no murmurs, rubs or gallops. Lungs: clear to auscultation bilaterally. no crackles, rhonchi or wheezing. no stridor. Abdomen: protuberant. soft. RLQ tenderness to palpation. normal bowel sounds. no rebound, guarding, masses. Extremities: Peripheral pulses intact. No lower extremity edema. Neurological: Alert. Oriented x3. CN 2-12 grossly intact. Moves all four extremities. Skin: pale. Heart Score/ECG Review - ECG Impressions Comment:: 06/25/18 14:45 EKG performed at 1308 06/25/18 - rate 101. sinus tachycardia. regular rhythm. normal axis. no acute ST changes. ED Treatment Course - LABORATORY CBC & Chemistry Diagram: 06/25/18 13:12 06/25/18 13:12 - ADDITIONAL ORDERS Additional order review: Laboratory Results 06/25/18 06/25/18 13:12 13:12 PT with INR 24.40 H* INR 2.16 H D PTT (Actin FS) 27.5 VBG pH 7.21 L* POC VBG pCO2 31.4 L POC VBG pO2 50.5 H Mixed VBG HCO3 12.0 L* 06/25/18 13:12 RBC 3.04 L MCV 68.9 L MCHC 28.3 L RDW 20.2 H MPV 8.3 Neutrophils % 86.0 H D Lymphocytes % 6.0 L D Monocytes % 7.5 Eosinophils % 0.2 D Basophils % 0.3 - Medications Given in the ED: ED Medications Discontinued Medications Generic Name Dose Route Start Last Admin Trade Name Freq PRN Reason Stop Dose Admin Acetaminophen 1,000 mg 06/25/18 13:38 06/25/18 14:02 Ofirmev Injection - IVPB 06/25/18 13:39 1,000 mg ONCE ONE Administration Sodium Chloride 1,000 mls @ 1,000 mls/hr 06/25/18 12:52 06/25/18 12:56 Normal Saline - IV 06/25/18 13:51 1,000 mls/hr ASDIR STA Administration Progress Note - Progress Note Progress Note: Patient is a 58-year-old female with past medical history of insulin-dependent diabetes, hypertension, hyperlipidemia, GERD, opioid dependence, who presents to the emergency department today with fatigue and weakness for one month. Patient has a senior interior designer who is at bedside at this time. The manager urgent care states that the patient has been feeling ill for the past month and appeared pale and weak upon his visit today. He reports that she has been having diarrhea for over a month. She had 3 loose stools between the hours of 10 and 12 today. Patient also admits to abdominal pain. She states that the abdominal pain is diffuse but mostly in the right lower quadrant. She denies fevers, chills, short of breath, difficulty breathing. Denies frequency and urgency. Given her weakness and 911 was called and she was found to be hypotensive at 60/40. Admits to vomiting brown emesis. Patient was given 1500 mL of fluids and blood pressure came up to 88/60. Upon further discussion with the manager urgent care, she's been noncompliant with doctor's appointments. She was informed that she had a hemoglobin of 6 and needed transfusion however she never went to an emergency department to receive treatment. She's also had poor control of her blood sugar recently to which the doctors were changing her medications. Pt states she has lost 12 pounds in the last few months without trying to lose weight. Medical Decision Making - Medical Decision Making 06/25/18 14:16 Initial Vital Signs Temp Pulse Resp BP Pulse Ox 99.2 F 101 H 18 88/57 100 06/25/18 12:44 06/25/18 12:44 06/25/18 12:44 06/25/18 12:44 06/25/18 12:44 Afebrile hypotension with diarrhea and abdominal pain. Hypotension responsive to fluids, pending transfusion. Tachycardia responsive to fluids, current pulse is 60 bpm. Anemia with a hemoglobin of 5.5. Leukocytosis with a WBC of 14 and a left shift 86%. Hypocoaguability with a PT of 24 and INR of 2.6. PTT normal. Lactic acidosis 3.2. Hypercalcemia 6.8. 06/25/18 15:03 I discussed the case with the admitting team, who states that the patient will be admitted under Dr. Glynn. 06/25/18 15:36 Stool guiac positive for blood. 06/25/18 15:42 Called blood bank, they reported pt has an antibody. *DC/Admit/Observation/Transfer Diagnosis at time of Disposition: Anemia, Lactic acid acidosis, Leukocytosis, Hypotension - Discharge Dispostion Condition at time of disposition: Stable Decision to Admit order: Yes - Referrals - Patient Instructions - Post Discharge Activity
[2018-06-25 14:22] LABS: CALCIUM 6.8 mg/dL (8.5-10.1)
--- NOTE | 2018-06-25 14:27 | EKG ---
Test Reason : Blood Pressure : / mmHG Vent. Rate : 101 BPM Atrial Rate : 101 BPM P-R Int : 130 ms QRS Dur : 074 ms QT Int : 360 ms P-R-T Axes : 018 023 006 degrees QTc Int : 466 ms SINUS TACHYCARDIA LOW VOLTAGE QRS CANNOT RULE OUT ANTERIOR INFARCT (CITED ON OR BEFORE 19-JAN-2018) ABNORMAL ECG WHEN COMPARED WITH ECG OF 19-JAN-2018 13:38, QUESTIONABLE CHANGE IN INITIAL FORCES OF ANTERIOR LEADS Confirmed by DOMINIQUE AUSTIN MD ([id number]) on 06/25/2018 2:27:04 PM Referred By: Confirmed By:DOMINIQUE AUSTIN MD
[2018-06-25 14:44] LABS: PLATELET ESTIMATE INCREASED
[2018-06-25 14:45] LABS: ANISOCYTOSIS 2+
--- NOTE | 2018-06-25 15:42 | HP ---
CC: Feeling weak PCP: None GI: Dr. Sanon HPI: 58 yo F IDDM, hypertension, hyperlipidemia, GERD, opioid dependence, IBS presented to the ED with weakness, alternating constipation and diarrhea x 2 months. She saw her youth director 2 months ago and was urged to see a gravure printing machinist or GI specialist due to low H&H ( around 6 at that time) and chronic abd pain. Patient endorses RLQ pain x 3 months, stabbing, 9/10, intermitant, non-radiating, a/w dizziness, weakness, headache, fever, n/v, alternating diarrhea and constipation, weight loss of 12 lbs in 2 months. The diarrhea is non-bloody per patient and relieved by imodium. Patient also had a "cranberry" color vomiting this morning at 9am. She had an endoscopy and colonoscopy [address] Sanon and found ulcers and polyps but she never followed up with him. Denies melana, dysuria, sick contact, chest pain, shortness of breath, vision change. PMH: IDDM, hypertension, hyperlipidemia, GERD, opioid dependence, IBS PSH: cholecystectomy and gastric bypass 9 years ago at [facility] Social History: Denies tobacoo and alcohol use; admitted addicted to chronically taking percocet and oxycodone Family History: Father had Crhon's disease and of heart attack at 52; mother healthy Allergy: NKDA Home Meds: Ambulatory Orders Glimepiride [Amaryl -] 8 mg PO DAILY@0700 10/26/12 Lisinopril [Prinivil] 20 mg PO DAILY 10/26/12 Omeprazole [Prilosec (RX)] 20 mg PO BID 10/26/12 Pravastatin Sodium [Pravachol -] 40 mg PO HS 10/26/12 Sitagliptin Phosphate [Januvia] 100 mg PO DAILY 10/26/12 metFORMIN HCL [Glucophage -] 850 mg PO TID 10/26/12 Aspirin [ASA -] 81 mg PO DAILY 03/04/13 Calcium Carb/Vitamin D3/Vit K1 [Calcium + D Soft Chewable Tab] 1 each PO DAILY 07/14/14 Cholecalciferol (Vitamin D3) [Vitamin D3] 1,000 unit PO DAILY 07/14/14 Fenofibrate Nanocrystallized [Tricor] 145 mg PO DAILY 07/14/14 Insulin Glargine,Hum.rec.anlog [Lantus Solostar PEN -] 20 units SQ HS 07/14/14 Insulin Lispro [Humalog] 0 unit SQ ASDIR 07/14/14 Multivitamins [Multivit ([facility] Formulary)] 1 tab PO DAILY 07/14/14 Pravastatin Sodium [Pravachol (Nf)] 40 mg PO HS #30 tablet 01/19/18 ROS: Constitutional: +fever or chills, +loss of appetite, +weakness or weight change HEENT: -trouble swallowing, +headache, -nasal congestion, -sore throat, -ear pain, -vision change Skin: No rash or lesion Cardiovascular: no active chest pain or sob Pulmonary: -cough non productive Endocrine: No polyuria, polydipsia, skin /hair changes, heat/cold intolerance. GI: +active abd pain, -nausea , +vomiting : +constipation. +diarrhea. No frequency, no urgency, no dysuria, +hematuria. MSK: No joint or muscle pain Psychology: No depression, anxiety, or insomnia. Physical Examination Last Vital Signs Temp Pulse Resp BP Pulse Ox 99.4 F 102 H 18 98/45 100 06/25/18 13:18 06/25/18 14:12 06/25/18 12:44 06/25/18 14:12 06/25/18 12:44 General: Calm, weak, pale, AAO x 3, able to speak full sentences, NAD Eyes: PERRLA, b/l pallor ENT: Oropharynx clear pale dry with no lesions/erythema. Neck: Supple with no LAD or masses.no JVD Lymph Nodes: No cervical or inguinal LAD. Cardiovascular: tachycardic, S1 and S2 with no murmur Lungs: CTAB Abdomen: normal bowel sounds. ND. Tender in all quadrants. no guarding/rebound , no solid or bloody stool found on rectal exam Extremeties: no peripheral edema CBCD WBC 14.3 K/mm3 (4.0-10.0) H 06/25/18 13:12 RBC 3.04 M/mm3 (3.60-5.2) L 06/25/18 13:12 Hgb 5.9 GM/dL (10.7-15.3) L* 06/25/18 13:12 Hct 20.9 % (32.4-45.2) L D 06/25/18 13:12 MCV 68.9 fl (80-96) L 06/25/18 13:12 MCHC 28.3 g/dl (32.0-36.0) L 06/25/18 13:12 RDW 20.2 % (11.6-15.6) H 06/25/18 13:12 Plt Count 502 K/MM3 (134-434) H D 06/25/18 13:12 MPV 8.3 fl (7.5-11.1) 06/25/18 13:12 CMP Sodium 135 mmol/L (136-145) L 06/25/18 17:11 Potassium 5.8 mmol/L (3.5-5.1) H 06/25/18 17:11 Chloride 108 mmol/L (98-107) H 06/25/18 17:11 Carbon Dioxide 13 mmol/L (21-32) L 06/25/18 17:11 Anion Gap 14 (8-16) 06/25/18 17:11 BUN 63 mg/dL (7-18) H 06/25/18 17:11 Creatinine 2.5 mg/dL (0.55-1.02) H 06/25/18 17:11 Creat Clearance w eGFR 19.71 (>60) 06/25/18 17:11 Calcium 6.4 mg/dL (8.5-10.1) L* 06/25/18 17:11 Total Bilirubin 0.3 mg/dL (0.2-1.0) 06/25/18 13:12 AST 35 U/L (15-37) 06/25/18 13:12 ALT 24 U/L (12-78) 06/25/18 13:12 Alkaline Phosphatase 39 U/L (45-117) L 06/25/18 13:12 Total Protein 5.1 g/dl (6.4-8.2) L 06/25/18 13:12 Albumin 2.4 g/dl (3.4-5.0) L 06/25/18 13:12 Imaging: EKG: sinus tachycardia CXR: no acute process A/P: 58 yo F admitted for 1. Acute on chronic anemia: microcytic, Likely chronic poor nutrition but cannot r/o GI bleed. Will give 2 PRBC pending EGD and colonoscopy. Trend H&H. Hold ASA. GI consult. 2. Leukocytosis: w/ bandemia and lactic acidosis. currently unknown source, cont. to trend lactate. f/u urine, blood and stool cultures. received 1 bolus of NS, vanco and zosyn in ED. Will give 2nd bolus and c/w standing IVF at 125cc/ hr. Cont. abx while waiting for ID consult. 3. RLQ abd pain: diverticulosis vs. IBS vs. IBD. f/u CTAP w/ oral contrast. 4. Chronic Diarrhea: w/ alternating constipation. IBD vs. IBS. Will need colonoscopy. 5. Supratherapeutic INR: normal LFTs and pt not on ac. Will 5mg oral vit. K once. trend coag daily. 6. ELLA: w/ normal baseline. likely pre-renal from dehydration, cont. hydration and hold lisinopril. 7. Electrolyte derangement: likely due to poor po intake and chronic diarrhea. hypocalcemia, corrected Ca2+ 8.1, monitor; hyperkalemia without EKG change, monitor and hold off kayaxalte; hyponatremia, cont. to trend. dietary consult NPO for now DVT ppx: scds Dispo: inpatient admission Bandar Glimore PGY3 [phone] Visit type - Emergency Visit Emergency Visit: Yes ED Registration Date: 06/25/18 Care time: The patient presented to the Emergency Department on the above date and was hospitalized for further evaluation of their emergent condition. - New Patient This patient is new to me today: Yes Date on this admission: 06/25/18 - Critical Care Critical Care patient: No Hospitalist Screening - Colonoscopy Questionnaire Colonoscopy Questionnaire: Colonoscopy Questionnaire - Patient: 50 - 75 years old and never had a screening colonoscopy: No History of colon or rectal polyps, or CA: No History of IBD, Crohn's disease or UC: Unknown History of abdominal radiation therapy as a child: Unknown - Relative: 1 with colon or rectal CA, or polyps at age 60 or younger: No Colon or rectal CA diagnosed at age 45 or younger: No Multiple relatives with colon or rectal CA: No - Outcome: Screening Result: Negative Screen
[2018-06-25] MEDS ORDERED: PANTOPRAZOLE SODIUM 40 MG VIAL IVPUSH ONE (15:44)
[2018-06-25] MEDS ORDERED: CALCIUM GLUCONATE 10% - 1,000 MG/10 ML VIAL IVPB ONE ×2 (16:45→23:00)
[2018-06-25] MEDS ORDERED: PHYTONADIONE 5 MG TABLET PO ONE (16:53)
[2018-06-25] MEDS ORDERED: PANTOPRAZOLE SODIUM 40 MG VIAL ONE ×2 (16:54→17:33)
[2018-06-25] MEDS ORDERED: SODIUM CHLORIDE 1,000 ML IV SCH ×2 (16:56→20:13)
[2018-06-25] MEDS ORDERED: INSULIN (NOVOLOG) ASPART 100 UNITS/ML 10ML VIAL ONE (17:17)
[2018-06-25] MEDS: INSULIN SLIDING SCALE (NOVOLOG) 1 VIAL SQ SCH ×2 (17:29→21:42)
[2018-06-25] MEDS: PANTOPRAZOLE SODIUM 80 MG in SODIUM CHLORIDE 100 ML IVPB SCH (17:47)
--- NOTE | 2018-06-25 18:10 | PN ---
Teaching Attending Note Name of Resident: Bandar Gilmore ATTENDING PHYSICIAN STATEMENT I saw and evaluated the patient. I reviewed the resident's note and discussed the case with the resident. I agree with the resident's findings and plan as documented. SUBJECTIVE: CC: tired , and weak HPI : 58 y/o lady with h/o HTN, Dm , anemia, H/o gastric ulcers and polyps , gastric bypass sx, IBS, chronic diarrhea, and opioid dependence who presented with fatigue. she was diagnosed with anemia ( Hb of 6) by her account information clerk in , but she never followed with GI. she reports chronic diarrhea, with brown to black stool. yesterday had emesis with brown material. reports chronic R lower quadrants pain , which is intermittent. has been feeling light headed lately. poor po intake, decreased appetite. stopped her lisinopril a week ago as she did not feel well. continued to take her insulin but no hypoglycemic episodes. of note , she has h/o PUD, and polyps removed from her stomach by Dr. Bolanos, No EGD report in EMR. colonoscopy in 2013 , with internal hemorrhoids weight loss 12 pounds in past month OBJECTIVE: BP 90/50. HR 110, CAESAR, pale, Awake and cooperative , dry MM , cheilosis. thrush on tongue and palate CV: regular rhythm, tachy. no MRG Lungs: CTAB Abd: obese, soft, TTP in all quadrants, no rebound tenderness or guarding . hypoactive BS, ND Ext: trace edema on LE . Neuro : round equal pupils, reactive to light. no facial droop, EOMI, tongue and uvula at mid line, strength 5/5 in upper and lower extremities proximally an distally. Rectal exam : declined by patient ( per ER resident exam, no masses , +OB ) ASSESSMENT AND PLAN: 58 y/o lady with h/o HTN, Dm , anemia, H/o gastric ulcers and polyps , gastric bypass sx, IBS, chronic diarrhea, and opioid dependence who presented with fatigue.she was found to have ELLA, severe anemia and acidosis 1- Worsening chronic microcytic anemia , likely iron def from slow upper GI bleed. Uses aspirin, h/o PUD per pt , elevated INR , ? hematemesis episode this am. - start PPI gtt. NPO - transfuse 2 units of RBCs - repeat Hb after that . goal hb > 7. - GI consult , will call - hold ASA . - reverse INR - CT of abd /pelvis pending - iron studies 2- ELLA: likely prerenal due to hypoperfusion form anemia and hypo-tension - IVF - Urine electrolytes. - will evaluate for hydro on CT abd/pelvis - hold lisinopril 3- High Anion gap acidosis : likely due to lactic acidosis and renal failure in the settingof metformin use. ? sepsis - check ABG - IVF. - hold metformin 4- Hyperkalemia: likely due to ELLA. Has not taken her lisinopril in > 1 week. - EKG with no changes - repeat K now , and decide for treatment . make sure to review CT report before giving any kayeksalate if needed 5- thrush : nystatin when able to give PO 6-Leukocytosis : No source of infection so far. cxray clear . diarrhea is chronic . - check UA - follow CT abd/Pelvis - follow blood cx - will hold off Abx until a source is identified - stool studies , and c diff 7- DM: for now and as NPO , will cont SSI . if sugar cont to be high , will give long acting insulin - hold oral agents including metformin 8- Elevated INR: likely nutritional def. PTT Nl - give vit K once. 9- SCDs for DVT px
[2018-06-25 18:23] LABS: ANION GAP 14 (8-16); BLOOD UREA NITROGEN 63 mg/dL (7-18); CHLORIDE 108 mmol/L (98-107); CO2 13 mmol/L (21-32); CREATININE 2.5 mg/dL (0.55-1.02); SODIUM 135 mmol/L (136-145)
[2018-06-25 18:35] LABS: POTASSIUM 5.8 mmol/L (3.5-5.1)
[2018-06-25 18:37] LABS: CALCIUM 6.4 mg/dL (8.5-10.1); GLUCOSE,RANDOM 304 mg/dL (74-106)
[2018-06-25 18:43] LABS: URINE CREATININE 94.5 mg/dL (20-320)
[2018-06-25 18:44] LABS: URINE APPEARANCE CLOUDY; URINE BILIRUBIN NEGATIVE (<2.0 mg/dL); URINE COLOR YELLOW; URINE GLUCOSE (UA) 1+ (NEGATIVE); URINE KETONE NEGATIVE (NEGATIVE); URINE LEUK ESTERASE NEGATIVE (NEGATIVE); URINE NITRITE NEGATIVE (NEGATIVE); URINE PROTEIN NEGATIVE (NEGATIVE); URINE UROBILINOGEN NEGATIVE mg/dL (0.2-1.0)
[2018-06-25 18:45] LABS: RATIO URIN PROTEIN/URIN CREAT 0.72 MG/DL
[2018-06-25] MEDS ORDERED: ALBUTEROL SO4 0.083% IH SOL 2.5 MG/3 ML VIAL.NEB. NEB ONE (20:30)
[2018-06-25] MEDS ORDERED: DEXTROSE 5%-WATER - 50 ML IVPB ONE (21:56)
[2018-06-25] MEDS ORDERED: cefTRIAXone SODIUM 1 GM VIAL ONE (21:56)
[2018-06-25] MEDS ORDERED: PATIENT'S OWN MEDICATION (NON-FORMULARY) (Oxycodone Hcl/Acetaminophen [Endocet 10-325 Mg T PO SCH (22:00)
[2018-06-25] MEDS: CEFTRIAXONE 1 GM in DEXTROSE 5%-WATER - 50 ML IVPB SCH (22:03)
[2018-06-25] MEDS: oxyCODONE HCL 5 MG TABLET PO SCH (22:05)
[2018-06-25] MEDS: ACETAMINOPHEN 325 MG TABLET (FP) PO SCH (22:06)
[2018-06-25 22:21] LABS: ANION GAP 16 (8-16); BLOOD UREA NITROGEN 61 mg/dL (7-18); CHLORIDE 110 mmol/L (98-107); CO2 13 mmol/L (21-32); CREATININE 2.3 mg/dL (0.55-1.02); GLUCOSE,RANDOM 90 mg/dL (74-106); SODIUM 139 mmol/L (136-145)
[2018-06-25 22:30] LABS: POTASSIUM 5.1 mmol/L (3.5-5.1)
[2018-06-25 22:33] LABS: CALCIUM 6.6 mg/dL (8.5-10.1)
[2018-06-26 00:15] VITALS: BMI 33.1
[2018-06-26] MEDS ORDERED: PT OWN MED DRAWER 7, Y5N ONE (03:15)
[2018-06-26] MEDS: PANTOPRAZOLE SODIUM 80 MG in SODIUM CHLORIDE 100 ML IVPB SCH (03:47)
[2018-06-26] MEDS: INSULIN SLIDING SCALE (NOVOLOG) 1 VIAL SQ SCH ×4 (04:50→17:08)
[2018-06-26 06:28] LABS: BASO % 0.1 % (0-2.0); HEMATOCRIT 28.5 % (32.4-45.2); LYMPH % 7.6 % (8-40); MCH 22.9 pg (25.7-33.7); MCHC 31.4 g/dl (32.0-36.0); MEAN CELL VOLUME 72.9 fl (80-96); MEAN PLT VOLUME 7.7 fl (7.5-11.1); MONO % 5.4 % (3.8-10.2); NEUT % 85.9 % (42.8-82.8); PLATELET COUNT 510 K/MM3 (134-434); RBC 3.91 M/mm3 (3.60-5.2); RDW 23.7 % (11.6-15.6); WHITE BLOOD COUNT 16.6 K/mm3 (4.0-10.0)
[2018-06-26] MEDS ORDERED: DEXTROSE 5%-NORMAL SALINE 1,000 ML IV SCH (06:45)
[2018-06-26 06:54] LABS: ANION GAP 13 (8-16); BLOOD UREA NITROGEN 62 mg/dL (7-18); CHLORIDE 109 mmol/L (98-107); CO2 16 mmol/L (21-32); GLUCOSE,RANDOM 69 mg/dL (74-106); MAGNESIUM 0.9 mg/dL (1.8-2.4); POTASSIUM 4.6 mmol/L (3.5-5.1); SODIUM 138 mmol/L (136-145)
[2018-06-26 06:55] LABS: PHOSPHOROUS 4.1 mg/dL (2.5-4.9)
[2018-06-26 07:18] LABS: INR 1.66 (0.82-1.09); PROTHROMBIN TIME (PATIENT) 18.8 SEC (9.7-13.0)
[2018-06-26 07:20] LABS: ACTIVATED PTT 25.5 SECONDS (25.2-36.5)
[2018-06-26 07:41] LABS: CALCIUM 6.8 mg/dL (8.5-10.1)
[2018-06-26] MEDS ORDERED: CALCIUM CHLORIDE 1 GM/10 ML *DISP.SYRIN IVPUSH ONE (07:47)
--- NOTE | 2018-06-26 09:23 | CON.GI ---
Consult Consult Specialty:: GI Referred by:: Hospitalist Reason for Consultation:: Diarrhea and anemia - History of Present Illness Chief Complaint: Diarrhea for 3 months History of Present Illness: 58F admitted for evaluatioj of diarrhea. Found to have a microcytic anemia with Hgb og 6. Given 2 U PRBC. Hgb was 9.8 during an ER visit in 01/18 however she did not follow-up regarding this. She states having multiple episodes of daily soft-water diarrhea for the last 3 months along with fecal incontinence. She denies that the diarrhea worsens after meals or wakes her at night. There has been no blood or mucous in the stool. She is a poor historian in general. 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 She states that at around the time the diarrhea began, her diabetic medication regimen was also being adjusted. She denies OTC NSAID pain medications or use of ASA 81mg daily even though it is in her home medication list. She uses percocet regularly "because she wasnt feeling well". She denies vomiting of blood or coffee grounds and states that she vomited green liquid yesterday morning. she denies rectal bleeding or melena. She denies recent antibiotic use, travel, change in dietary habits or sick contacts. Despite having a gastric bypass, she does not take iron supplementation. I saw her while working at the [facility] [employer] in 2013. 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 Ranjit Daly at [facility]). I did not perform an endoscopy. She has not followed up since. Colonoscopy revealed retained liquid stool in the colon and was otherwise normal. Biopises were negative for microscopic colitis. She was noted to be hyperglycemic, have a non anion gap metabolic acidosis and was occult blood + in the ER. CT scan performed with PO contrast revealed mild wall thickening of the distal colon ( distal transverse, sigmoid, descending) and a small bowel loop. She is concerned because her brother told her her father may have had Crohn's disease. She is requesting percocet. There has been no diarrhea this morning as of yet. - History Source History Provided By: Patient, Medical Record - Past Medical History SUPERVISOR LOGGING: Yes: Migraine Cardio/Vascular: Yes: HTN, Hyperlipdemia Gastrointestinal: Yes: Other (personal history of colon polyps) ...: No Infectious Disease: Yes: Other (PPD + per previous records) Musculoskeletal: Yes: Chronic low back pain Endocrine: Yes: Diabetes Mellitus - Past Surgical History Past Surgical History: Yes: Bariatric Surgery (gastric bypass 2008), Cholecystectomy Additional Surgical History: Knee surgery - Alcohol/Substance Use Hx Alcohol Use: No History of Substance Use: reports: None, Prescription (percocet) - Smoking History Smoking history: Never smoked Have you smoked in the past 12 months: No Aproximately how many cigarettes per day: 0 - Social History Usual Living Arrangement: With Significant Other ADL: Independent Place of : [facility] History of Recent Travel: No Home Medications - Allergies Allergies/Adverse Reactions: Allergies Allergy/AdvReac Type Severity Reaction Status Date / Time No Known Allergies Allergy Verified 01/19/18 12:53 - Home Medications Home Medications: Ambulatory Orders Glimepiride [Amaryl -] 8 mg PO DAILY@0700 10/26/12 Lisinopril [Prinivil] 10 mg PO DAILY 10/26/12 Pravastatin Sodium [Pravachol -] 80 mg PO HS 10/26/12 Sitagliptin Phosphate [Januvia] 100 mg PO DAILY 10/26/12 metFORMIN HCL [Glucophage -] 850 mg PO TID 10/26/12 Calcium Carb/Vitamin D3/Vit K1 [Calcium + D Soft Chewable Tab] 1 each PO DAILY 07/14/14 Cholecalciferol (Vitamin D3) [Vitamin D3] 1,000 unit PO DAILY 07/14/14 Fenofibrate Nanocrystallized [Tricor] 145 mg PO DAILY 07/14/14 Insulin Glargine,Hum.rec.anlog [Lantus Solostar PEN -] 23 units SQ HS 07/14/14 Insulin Lispro [Humalog] 5 unit SQ AC 07/14/14 Multivitamins [Multivit ([facility] Formulary)] 1 tab PO DAILY 07/14/14 Acarbose [Precose -] 25 mg PO TID 06/25/18 Diclofenac Sodium 50 mg PO BID 06/25/18 Duloxetine HCl [Cymbalta] 60 mg PO DAILY 06/25/18 Oxycodone HCl/Acetaminophen [Endocet 10-325 mg Tablet] 1 each PO BID 06/25/18 Family Disease History - Family Disease History Family Disease History: Other: Father (: 52: [place]. ? h/o crohn's ), Mother ( Alive: healthy), Brother (1, healthy), Sister (2, healthy) Other Family History: No family history of colorectal cancer Review of Systems - Review of Systems Constitutional: reports: Unintentional Wgt. Loss. denies: Chills Cardiovascular: denies: Chest Pain Respiratory: denies: SOB Gastrointestinal: reports: Abdominal Pain, Diarrhea, Vomiting. denies: Constipation, Dysphagia, Melena, Rectal Bleeding, Vomiting Blood Physical Exam-GI Vital Signs: Vital Signs Temperature 98.8 F 06/26/18 06:09 Pulse Rate 93 H 06/26/18 06:09 Respiratory Rate 20 06/26/18 06:09 Blood Pressure 102/54 06/26/18 06:09 O2 Sat by Pulse Oximetry (%) 98 06/25/18 23:45 Constitutional: Yes: Calm Eyes: No: Sclera Icterus Cardiovascular: Yes: Tachycardia. No: Murmur Respiratory: Yes: CTA Bilaterally Gastrointestinal Inspection: Yes: Scars (faint mid abdominal surgical scar cephalad to the umbilicus). No: Distention ...Auscultate: Yes: Normoactive Bowel Sounds ...Palpate: Yes: Tenderness (mild TTP left abdomen). No: Guarding, Hepatomegaly , Splenomegaly, Tenderness, Rebound ...Percussion: No: Tympanitic ...Rectal Exam: Yes: Other (Fiberglass Ski Maker present: no external lesions, no masses, no stool / blood / melena present) Edema: No (No LE edema) Neurological: Yes: Alert Labs: CBC, BMP 06/26/18 05:45 06/26/18 05:45 INR, PTT INR 1.66 (0.82-1.09) H 06/26/18 05:45 Imaging - Results Cat Scan: Report Reviewed, Image Reviewed Problem List - Problems (1) Chronic diarrhea Assessment/Plan: Multiple possible etiologies: ? infectious, iatrogenic, ? inflammatory process however diarrhea does not seem to be awakening her at night. ? dumping syndrome however her diarrhea does not seem to be related to meals. Stool O&P, culture, C. Diff pending Would order 2 more O&P on two seperate days to help exclude parasitic etiology Quantitative stool for fecal fat was ordered however requires a 72 hour collection preceeded by a 100-150g high fat diet for three days prior and then during the collection itself. Check celiac serologies Consider HIV testing ID consult Her diabetic regimen will likely need to be adjusted as her oral agents can be diarrheagenic When metabolic derangements permit, upper endoscopy and flexible sigmoidoscopy vs. colonoscopy can be undertaken. B12 and folate levels were added on to AM labs lactose free, low fat, gluten free full liquid diet Code(s): K52.9 - NONINFECTIVE GASTROENTERITIS AND COLITIS, UNSPECIFIED (2) Microcytic anemia Assessment/Plan: Ms. Knox has a gastric bypass and has not been taking iron supplementation. The most common anemia in gastric bypass patients is iron deficiency She denies an over bleeding history however when metabolic derangements permit, upper endoscopy and colonoscopy can be undertaken Hematology evaluation Code(s): D50.9 - IRON DEFICIENCY ANEMIA, UNSPECIFIED (3) Opioid abuse Assessment/Plan: Seems to frequently use percocet as an outpatient and is requesting that it be given regularly here. Concern is for opoid dependence. Consider further evaluation. Code(s): F11.10 - OPIOID ABUSE, UNCOMPLICATED
[2018-06-26] MEDS: ACETAMINOPHEN 325 MG TABLET (FP) PO SCH ×2 (09:31→21:59)
[2018-06-26] MEDS: oxyCODONE HCL 5 MG TABLET PO SCH ×2 (09:32→21:58)
[2018-06-26 09:36] LABS: ARTERIAL BLD GAS O2 SATURATION 97.3 % (90-98.9); ARTERIAL BLOOD GAS BASE EXCESS -10.2 meq/l (-2-2); ARTERIAL BLOOD GAS PCO2 25.3 mmHg (35-45); ARTERIAL BLOOD GAS pH 7.36 (7.35-7.45)
[2018-06-26 09:47] LABS: ALLENS TEST POSITIVE
[2018-06-26] MEDS ORDERED: PANTOPRAZOLE 40 MG TABLET (FP) PO SCH (10:00)
[2018-06-26] MEDS ORDERED: LOPERAMIDE HCL 2 MG CAPSULE PO ONE (10:15)
[2018-06-26] MEDS ORDERED: CALCIUM GLUCONATE 10% - 1,000 MG/10 ML VIAL IVPB ONE (10:31)
[2018-06-26] MEDS ORDERED: WATER IVPB ONE (11:00)
[2018-06-26] MEDS ORDERED: CALCIUM GLUCONATE IVPB ONE (11:00)
[2018-06-26] MEDS ORDERED: MAGNESIUM 1GM/D5W 100ML - 100 ML IVPB IVPB SCH (11:00)
[2018-06-26] MEDS ORDERED: DEXTROSE 5% IVPB ONE (11:00)
[2018-06-26 11:10] LABS: ANISOCYTOSIS 3+; MACROCYTOSIS 0; PLATELET ESTIMATE INCREASED
[2018-06-26] MEDS: MAGNESIUM 1GM/D5W 100ML - 100 ML IVPB IVPB SCH ×2 (11:30→14:26)
--- NOTE | 2018-06-26 14:35 | PN ---
Progress Note (short form) - Note Progress Note: ID consult dictated imp/reccd Chronic diarrhea (nonbloody) and weight loss in this 58 year old female with diabetes admitted with severe anemia and ELLA ct scan with colitis s/p 2 units prbc colitis anemia ELLA wt loss ?dementia-apppears to have word finding difficulties and memory issues diabetes agree with rocephin/flagyl stool studies to include cryptosporidium/giardia antigens stool ova and parasites stool culture celiac work up nutritional deficiency due to gastric bypass? she agrees to HIV testing-ordered should have hep serology tsh rpr esr/crp will follow with you consider head ct neurology eval as well
--- NOTE | 2018-06-26 15:54 | PN ---
Physical Exam: SUBJECTIVE: Patient seen and examined at examined at bedside. Denies pain, weakness, further vomiting or diarrhea, shortness of breath. No complaints. OBJECTIVE: Vital Signs Period Temp Pulse Resp BP Sys/Funes Pulse Ox Last 24 Hr 98.2 F-100.2 F 82-118 18-20 85-130/39-64 94-99 GENERAL: Lethargic, pallid, oriented only to person on bilingual operator encounter, A&Ox3 on re-evaluation in mid-morning. HEAD: NC/AT EYES: PERRLA, EOMI ENT: Thrush along palate NECK: Trachea midline, full range of motion, supple. LUNGS: Breath sounds equal, clear to auscultation bilaterally, no wheezes, no crackles, no accessory muscle use HEART: Tachycardic, S1 S2 no m/r/g ABDOMEN: +bs, soft, TTP in all quadrants most pronounced in RLQ EXTREMITIES: 2+ pulses, warm, well-perfused, trace edema NEUROLOGICAL: Unable to comply with neurologic evaluation, moving 4 extremities spontaneously Laboratory Results - last 24 hr 06/25/18 06/25/18 06/25/18 13:12 14:30 15:09 WBC RBC Hgb Hct MCV MCH MCHC RDW Plt Count MPV Absolute Neuts (auto) Neutrophils % Neutrophils % (Manual) Band Neutrophils % Lymphocytes % Lymphocytes % (Manual) Monocytes % Monocytes % (Manual) Eosinophils % Eosinophils % (Manual) Basophils % Basophils % (Manual) Myelocytes % (Man) Promyelocytes % (Man) Blast Cells % (Manual) Nucleated RBC % Metamyelocytes Hypochromia Platelet Estimate Polychromasia Poikilocytosis Anisocytosis Microcytosis Macrocytosis [place] Cells PT with INR INR PTT (Actin FS) Puncture Site ABG pH ABG pCO2 at Pt Temp ABG pO2 at Pt Temp ABG HCO3 ABG O2 Sat (Measured) ABG O2 Content ABG Base Excess Josue Test O2 Delivery Device Oxygen Flow Rate Sodium Potassium Chloride Carbon Dioxide Anion Gap BUN Creatinine Creat Clearance w eGFR POC Glucometer Random Glucose Lactic Acid 3.2 H* Calcium Phosphorus Magnesium Ferritin Vitamin B12 Serum Folate Urine Color Urine Appearance Urine pH Ur Specific [place] Urine Protein Urine Glucose (UA) Urine Ketones Urine Blood Urine Nitrite Urine Bilirubin Urine Urobilinogen Ur Leukocyte Esterase U Random Total Protein Ur Random Sodium Ur Random Urea Nitrogn Urine Creatinine Protein/Creatinin Ratio Stool Occult Blood Positive Stool O & P Wet [place] Permanent Slide Blood Type O POSITIVE Antibody Screen Positive H Antibody Identification Anti-k Antigen Identification No Result Required. Crossmatch See Detail 06/25/18 06/25/18 06/25/18 17:11 18:00 18:00 WBC RBC Hgb Hct MCV MCH MCHC RDW Plt Count MPV Absolute Neuts (auto) Neutrophils % Neutrophils % (Manual) Band Neutrophils % Lymphocytes % Lymphocytes % (Manual) Monocytes % Monocytes % (Manual) Eosinophils % Eosinophils % (Manual) Basophils % Basophils % (Manual) Myelocytes % (Man) Promyelocytes % (Man) Blast Cells % (Manual) Nucleated RBC % Metamyelocytes Hypochromia Platelet Estimate Polychromasia Poikilocytosis Anisocytosis Microcytosis Macrocytosis [place] Cells PT with INR INR PTT (Actin FS) Puncture Site ABG pH ABG pCO2 at Pt Temp ABG pO2 at Pt Temp ABG HCO3 ABG O2 Sat (Measured) ABG O2 Content ABG Base Excess Josue Test O2 Delivery Device Oxygen Flow Rate Sodium 135 L Potassium 5.8 H Chloride 108 H Carbon Dioxide 13 L Anion Gap 14 BUN 63 H Creatinine 2.5 H Creat Clearance w eGFR 19.71 POC Glucometer Random Glucose 304 H* Lactic Acid Calcium 6.4 L* Phosphorus Magnesium 1.0 L Ferritin 26.8 Vitamin B12 Serum Folate Urine Color Urine Appearance Urine pH Ur Specific [place] Urine Protein Urine Glucose (UA) Urine Ketones Urine Blood Urine Nitrite Urine Bilirubin Urine Urobilinogen Ur Leukocyte Esterase U Random Total Protein Ur Random Sodium < 5 Ur Random Urea Nitrogn 496 Urine Creatinine Protein/Creatinin Ratio Stool Occult Blood Stool O & P Wet [place] P Permanent Slide Blood Type Antibody Screen Antibody Identification Antigen Identification Crossmatch 06/25/18 06/25/18 06/25/18 18:00 18:22 19:00 WBC RBC Hgb Hct MCV MCH MCHC RDW Plt Count MPV Absolute Neuts (auto) Neutrophils % Neutrophils % (Manual) Band Neutrophils % Lymphocytes % Lymphocytes % (Manual) Monocytes % Monocytes % (Manual) Eosinophils % Eosinophils % (Manual) Basophils % Basophils % (Manual) Myelocytes % (Man) Promyelocytes % (Man) Blast Cells % (Manual) Nucleated RBC % Metamyelocytes Hypochromia Platelet Estimate Polychromasia Poikilocytosis Anisocytosis Microcytosis Macrocytosis [place] Cells PT with INR INR PTT (Actin FS) Puncture Site ABG pH ABG pCO2 at Pt Temp ABG pO2 at Pt Temp ABG HCO3 ABG O2 Sat (Measured) ABG O2 Content ABG Base Excess Josue Test O2 Delivery Device Oxygen Flow Rate Sodium Potassium Chloride Carbon Dioxide Anion Gap BUN Creatinine Creat Clearance w eGFR POC Glucometer Random Glucose Lactic Acid Calcium Phosphorus Magnesium Ferritin Vitamin B12 Serum Folate Urine Color Yellow Urine Appearance Cloudy Urine pH 5.0 Ur Specific [place] 1.021 Urine Protein Negative Urine Glucose (UA) 1+ H D Urine Ketones Negative Urine Blood Negative Urine Nitrite Negative Urine Bilirubin Negative Urine Urobilinogen Negative Ur Leukocyte Esterase Negative U Random Total Protein 68 H Ur Random Sodium Ur Random Urea Nitrogn Urine Creatinine 94.5 Protein/Creatinin Ratio 0.72 Stool Occult Blood Stool O & P Wet [place] O & P Permanent Slide Cancelled Blood Type Antibody Screen Antibody Identification Antigen Identification Crossmatch 06/25/18 06/25/18 06/26/18 20:43 21:30 04:48 WBC RBC Hgb Hct MCV MCH MCHC RDW Plt Count MPV Absolute Neuts (auto) Neutrophils % Neutrophils % (Manual) Band Neutrophils % Lymphocytes % Lymphocytes % (Manual) Monocytes % Monocytes % (Manual) Eosinophils % Eosinophils % (Manual) Basophils % Basophils % (Manual) Myelocytes % (Man) Promyelocytes % (Man) Blast Cells % (Manual) Nucleated RBC % Metamyelocytes Hypochromia Platelet Estimate Polychromasia Poikilocytosis Anisocytosis Microcytosis Macrocytosis [place] Cells PT with INR INR PTT (Actin FS) Puncture Site ABG pH ABG pCO2 at Pt Temp ABG pO2 at Pt Temp ABG HCO3 ABG O2 Sat (Measured) ABG O2 Content ABG Base Excess Josue Test O2 Delivery Device Oxygen Flow Rate Sodium 139 Potassium 5.1 Chloride 110 H Carbon Dioxide 13 L Anion Gap 16 BUN 61 H Creatinine 2.3 H Creat Clearance w eGFR 21.70 POC Glucometer 131 84 Random Glucose 90 Lactic Acid Calcium 6.6 L* Phosphorus Magnesium Ferritin Vitamin B12 Serum Folate Urine Color Urine Appearance Urine pH Ur Specific [place] Urine Protein Urine Glucose (UA) Urine Ketones Urine Blood Urine Nitrite Urine Bilirubin Urine Urobilinogen Ur Leukocyte Esterase U Random Total Protein Ur Random Sodium Ur Random Urea Nitrogn Urine Creatinine Protein/Creatinin Ratio Stool Occult Blood Stool O & P Wet [place] & P Permanent Slide Blood Type Antibody Screen Antibody Identification Antigen Identification Crossmatch 06/26/18 06/26/18 06/26/18 05:45 05:45 05:45 WBC 16.6 H RBC 3.91 Hgb 9.0 L Hct 28.5 L D MCV 72.9 L MCH 22.9 L MCHC 31.4 L RDW 23.7 H Plt Count 510 H MPV 7.7 Absolute Neuts (auto) 14.3 Neutrophils % 85.9 H Neutrophils % (Manual) 43.9 D Band Neutrophils % 43.9 Lymphocytes % 7.6 L D Lymphocytes % (Manual) 7.2 L D Monocytes % 5.4 Monocytes % (Manual) 2 L Eosinophils % 1.0 D Eosinophils % (Manual) 1.0 Basophils % 0.1 Basophils % (Manual) 0.0 Myelocytes % (Man) 2 Promyelocytes % (Man) 0 Blast Cells % (Manual) 0 Nucleated RBC % 2 H Metamyelocytes 0 D Hypochromia 2+ Platelet Estimate Increased Polychromasia 2+ Poikilocytosis 1+ Anisocytosis 3+ Microcytosis 1+ Macrocytosis 0 [place] Cells 1+ PT with INR 18.80 H* INR 1.66 H PTT (Actin FS) 25.5 L Puncture Site ABG pH ABG pCO2 at Pt Temp ABG pO2 at Pt Temp ABG HCO3 ABG O2 Sat (Measured) ABG O2 Content ABG Base Excess Josue Test O2 Delivery Device Oxygen Flow Rate Sodium 138 Potassium 4.6 Chloride 109 H Carbon Dioxide 16 L Anion Gap 13 BUN 62 H Creatinine 2.0 H Creat Clearance w eGFR 25.50 POC Glucometer Random Glucose 69 L Lactic Acid Calcium 6.8 L* Phosphorus 4.1 Magnesium 0.9 L Ferritin 44.0 Vitamin B12 793 Serum Folate 18 H Urine Color Urine Appearance Urine pH Ur Specific [place] Urine Protein Urine Glucose (UA) Urine Ketones Urine Blood Urine Nitrite Urine Bilirubin Urine Urobilinogen Ur Leukocyte Esterase U Random Total Protein Ur Random Sodium Ur Random Urea Nitrogn Urine Creatinine Protein/Creatinin Ratio Stool Occult Blood Stool O & P Wet [place] & P Permanent Slide Blood Type Antibody Screen Antibody Identification Antigen Identification Crossmatch 06/26/18 06/26/18 06/26/18 05:45 09:25 11:15 WBC RBC Hgb Hct MCV MCH MCHC RDW Plt Count MPV Absolute Neuts (auto) Neutrophils % Neutrophils % (Manual) Band Neutrophils % Lymphocytes % Lymphocytes % (Manual) Monocytes % Monocytes % (Manual) Eosinophils % Eosinophils % (Manual) Basophils % Basophils % (Manual) Myelocytes % (Man) Promyelocytes % (Man) Blast Cells % (Manual) Nucleated RBC % Metamyelocytes Hypochromia Platelet Estimate Polychromasia Poikilocytosis Anisocytosis Microcytosis Macrocytosis [place] Cells PT with INR INR PTT (Actin FS) Puncture Site Right radial ABG pH 7.36 ABG pCO2 at Pt Temp 25.3 L ABG pO2 at Pt Temp 94.0 ABG HCO3 13.9 L* ABG O2 Sat (Measured) 97.3 ABG O2 Content 11.1 L ABG Base Excess -10.2 L* Josue Test Positive O2 Delivery Device Room air Oxygen Flow Rate 21% Sodium Potassium Chloride Carbon Dioxide Anion Gap BUN Creatinine Creat Clearance w eGFR POC Glucometer 65 Random Glucose Lactic Acid 2.1 H Calcium Phosphorus Magnesium Ferritin Vitamin B12 Serum Folate Urine Color Urine Appearance Urine pH Ur Specific [place] Urine Protein Urine Glucose (UA) Urine Ketones Urine Blood Urine Nitrite Urine Bilirubin Urine Urobilinogen Ur Leukocyte Esterase U Random Total Protein Ur Random Sodium Ur Random Urea Nitrogn Urine Creatinine Protein/Creatinin Ratio Stool Occult Blood Stool O & P Wet [place] P Permanent Slide Blood Type Antibody Screen Antibody Identification Antigen Identification Crossmatch Active Medications Generic Name Dose Route Start Last Admin Trade Name Silvia PRN Reason Stop Dose Admin Acetaminophen 325 mg 06/25/18 22:00 06/26/18 09:31 Tylenol - PO 325 mg BID YAMILKA Administration Ceftriaxone Sodium 1 gm/ 50 mls @ 100 mls/hr 06/25/18 20:30 06/25/18 22:03 Dextrose IVPB 100 mls/hr DAILY@2030 YAMILKA Administration Metronidazole 500 mg in 100 mls @ 100 mls/hr 06/26/18 02:00 06/26/18 09:30 Flagyl 500mg Premixed Ivpb - IVPB 100 mls/hr Q8H-IV YAMILKA Administration Dextrose/Sodium Chloride 1,000 mls @ 100 mls/hr 06/26/18 06:45 06/26/18 07:19 D5-Ns - IV 100 mls/hr ASDIR YAMILKA Administration Insulin Aspart 1 vial 06/26/18 11:00 06/26/18 11:30 Novolog Vial Sliding Scale - SQ Not Given ACHS [facility] Protocol Oxycodone HCl 10 mg 06/25/18 22:00 06/26/18 09:32 Roxicodone - PO 10 mg BID YAMILKA Administration ASSESSMENT/PLAN: 58 y/o F w/ PMHx IDDM, anemia, HTN, gastric ulcers and polyps, gastric bypass Sx , IBS, chronic diarrhea, opioid dependence, p/w 1 month worsening fatigue, one episode of hematemesis, found to have severe anemia, ELLA, anion gap+ metabolic acidosis #anemia -received 2U PRBC, Hgb improved to 9 from 5.9 -DDx iron deficiency given gastric bypass vs UGIB, iron studies pending -GI consulted (Dr. Sanon), planning upper and lower endoscopy when acute issues are stabilized -hold ASA -INR improving after dose of vitamin K #colitis -CT A/P: "In comparison to a prior CT study of 07/29/2013 apparent interval development of mild continuous concentric wall thickening is seen along the length of the sigmoid and descending segments of the colon. There is also possible involvement of the distal half of the transverse colon. Note is also made of mild concentric wall thickening involving a distal small bowel loop within the right lower pelvis. These findings may be on the basis of acute or chronic enterocolitis. A portion of the sigmoid colon courses through the right pelvis." -Stool, Blood, UCx pending -HIV, HAV, HBV, HCV, stool H pylori, TSH, stool quantitative fat, RPR, stool parasites, celiac panel pending #leukocytosis -meets SIRS criteria upon admission -WBC worsening -Stool Cx, Blood Cx, UCx pending -C Diff negative -empiric Ceftriaxone/Metronidazole -ID consulted (Dr. Trejo) -HIV, HAV, HBV, HCV, stool H pylori, TSH, stool quantitative fat, RPR, stool parasites, celiac panel pending #anion gap acidosis -AG resolving -ABG shows decreased bicarbonate -lactate elevated but resolving -Tx underlying cause #ELLA -likely prerenal 2/2 hypotension and anemia -improving -IVF D5NS @ 100 #DM -ISS -on 6 hypoglycemic agents at home and non-compliant, requires optimization for discharge #hyperkalemia -likely due to ELLA -resolved #hypocalcemia -remains hypocalcemic after correction for low albumin -repleted -monitor #hypomagnesemia -repleted -monitor #thrush -nystatin when tolerating PO #FEN -D5NS @ 100 -lytes dysregulated, monitor and replete -full liquid, gluten free, lactose free, low fat #PPx -SCDs #dispo -transfer to med/surg Visit type - Emergency Visit Emergency Visit: No - New Patient This patient is new to me today: Yes Date on this admission: 06/26/18 - Critical Care Critical Care patient: No
--- NOTE | 2018-06-26 18:09 | PN ---
Teaching Attending Note Name of Resident: Rory Bird ATTENDING PHYSICIAN STATEMENT I saw and evaluated the patient. I reviewed the resident's note and discussed the case with the resident. I agree with the resident's findings and plan as documented. SUBJECTIVE: No fever or chills . feels better. No abd pain , cont to have diarrhea OBJECTIVE: CAESAR, MMM CV: RRR Lungs: CTAB Abd: obese, soft, TTP in all quadrants, no rebound tenderness or guarding . Nl BS Ext: trace edema on LE . ASSESSMENT AND PLAN: 58 y/o lady with h/o HTN, Dm , anemia, H/o gastric ulcers and polyps , gastric bypass sx, IBS, chronic diarrhea, and opioid dependence who presented with fatigue.she was found to have ELLA, severe anemia and acidosis 1- Worsening chronic microcytic anemia , likely iron def anemia form GI bleed Vs nutritional def s/p 2 units of RBC . stable HB now . - PPI stopped , probably due to diarrhea as side effect - monitor HB - EGD this admission - If GI w/u is neg, then heme eval might be warranted - follow iron studies 2- ELLA: prerenal in etiology. Fena 0.1% - IVF . change back to NS - hold lisinopril 3- Acidosis : due to renal failure and bicarb loss through GI tract. improved 4- Hyperkalemia: resolved 5- thrush : Nystatin 6-diarrhea : infectious colitis , Vs celiac, Vs IBS Vs. others - follow stool tests. O&P x3 - follow celiac serology, HIV. - Sigmoidoscopy vs colo this admission - cont ceftriaxone and flagyl empirically 7- DM: check A1c to determine plan for fpc regimen - cont SSI for now . dc HS coverage of SSI 8- Elevated INR: likely nutritional def. PTT Nl - s/p 1 dose of Vit K 9- Possible dementia ; start with head CT scan . RPR, HIV pending HLOC
[2018-06-26] MEDS ORDERED: cefTRIAXone SODIUM 1 GM VIAL ONE (19:43)
[2018-06-26] MEDS ORDERED: DEXTROSE 5%-WATER - 50 ML IVPB ONE (19:43)
[2018-06-26] MEDS: CEFTRIAXONE 1 GM in DEXTROSE 5%-WATER - 50 ML IVPB SCH (19:49)
[2018-06-26] MEDS: SODIUM CHLORIDE 1,000 ML IV SCH (19:50)
[2018-06-27] MEDS: INSULIN SLIDING SCALE (NOVOLOG) 1 VIAL SQ SCH ×3 (06:03→16:54)
[2018-06-27 06:07] LABS: SERUM IRON SATURATION 8 % (15-55); TOTAL IRON BINDING CAPACITY 265 ug/dL (250-450); UIBC 244 ug/dL (131-425)
[2018-06-27 07:41] LABS: HEMATOCRIT 30.4 % (32.4-45.2); MCH 23.4 pg (25.7-33.7); MEAN CELL VOLUME 70.9 fl (80-96); MEAN PLT VOLUME 7.4 fl (7.5-11.1); PLATELET COUNT 612 K/MM3 (134-434); RBC 4.29 M/mm3 (3.60-5.2); RDW 23.4 % (11.6-15.6); WHITE BLOOD COUNT 24.6 K/mm3 (4.0-10.0)
[2018-06-27 08:04] LABS: ALBUMIN 2.1 g/dl (3.4-5.0); ANION GAP 12 (8-16); BLOOD UREA NITROGEN 28 mg/dL (7-18); CALCIUM 7.8 mg/dL (8.5-10.1); CHLORIDE 112 mmol/L (98-107); CO2 18 mmol/L (21-32); GLUCOSE,RANDOM 115 mg/dL (74-106); POTASSIUM 4.3 mmol/L (3.5-5.1); SODIUM 142 mmol/L (136-145)
[2018-06-27 08:17] LABS: ALK PHOS 73 U/L (45-117); BILIRUBIN,TOTAL 0.3 mg/dL (0.2-1.0); CREATININE 0.9 mg/dL (0.55-1.02); SGOT/AST 13 U/L (15-37); SGPT/ALT 15 U/L (12-78); TOT PROT 4.9 g/dl (6.4-8.2)
[2018-06-27 08:39] LABS: MAGNESIUM 1.5 mg/dL (1.8-2.4)
--- NOTE | 2018-06-27 08:59 | PN ---
Teaching Attending Note Name of Resident: Daniel Whaley ATTENDING PHYSICIAN STATEMENT I saw and evaluated the patient. I reviewed the resident's note and discussed the case with the resident. I agree with the resident's findings and plan as documented. SUBJECTIVE: feels tired. has BAD pain. cont to have diarrhea, pesto like consistency and color. low grade fever . No CP , No SOB. OBJECTIVE: NAD, MMM, minimal thrush noted , cheilosis CV: RRR Lungs: CTAB Abd: obese, soft, TTP in all quadrants especially LLQ, no rebound tenderness or guarding . Nl BS Ext: 1+ edema on LE ASSESSMENT AND PLAN: 58 y/o lady with h/o HTN, Dm , anemia, H/o gastric ulcers and polyps , gastric bypass sx, IBS, chronic diarrhea, and opioid dependence who presented with fatigue.she was found to have ELLA, severe anemia and acidosis 1- Worsening chronic microcytic anemia, s/p 2 units of RBC . stable HB now . still need to r/o slow GI bleed. nutritional def is possible. iron studies, hard to interpret as ferritin in lowr normal range but acute phase reactant and might be falsely normal. might have iron def, with signs of chronic inflammation causing low TIBC - EGD per GI - off PPI due to diarrhea , H2 blockers can cause diarrhea too - send smear and Hb electropheresis - If GI w/u is neg, then heme eval 2- ELLA: prerenal in etiology. Fena 0.1% -cont IVF - hold lisinopril 3- Non AG Acidosis : due to bicarb loss through GI tract 4- Leukocytosis : worse today . infectious ( colitis ) , VS non infectious ( bowel ischemia , BM disorder) thrombocytosis could be reactive , but also due to BM disease - follow blood cx . c diff neg. follow stool cx - send peripheral smear. - lactic did not normalize despite IVF, ? bowel ischemia due to hypoperfusion of other causes . check echo - colonoscopy when stable - cont Abx - heme evall if infectious etiology r/o 5- Thrush : Nystatin 6-Diarrhea: infectious colitis , Vs celiac, Vs IBS Vs. others - follow stool tests. O&P x3 - follow celiac serology, HIV. ( pending) - cont ceftriaxone and flagyl empirically 7- DM: A1c 6.9 . on 3 oral agents nad HS insulin at home., doubt she is taking all this. - cont SSI - At dc will need one oral agent 8- Elevated INR: likely nutritional def. PTT Nl - s/p 1 dose of Vit K 9- Possible dementia ; start with head CT scan . RPR, HIV pending 10- LE edema , could be due to hypoalbunemia , but will check Echo HLOC SCDS
[2018-06-27] MEDS ORDERED: MAGNESIUM 2GM/50ML STERILE WATER IVPB IVPB ONE (09:09)
[2018-06-27] MEDS: oxyCODONE HCL 5 MG TABLET PO SCH (09:19)
[2018-06-27] MEDS: ACETAMINOPHEN 325 MG TABLET (FP) PO SCH ×2 (09:20→21:12)
[2018-06-27 10:07] LABS: BASO % 0.1 % (0-2.0); EOS % 0.1 % (0-4.5); HEMATOCRIT 27.9 % (32.4-45.2); HEMOGLOBIN 8.9 GM/dL (10.7-15.3); LYMPH % 3.8 % (8-40); MCH 22.6 pg (25.7-33.7); MEAN CELL VOLUME 70.6 fl (80-96); MEAN PLT VOLUME 7.4 fl (7.5-11.1); PLATELET COUNT 538 K/MM3 (134-434); RBC 3.95 M/mm3 (3.60-5.2); RDW 24.2 % (11.6-15.6); WHITE BLOOD COUNT 24.2 K/mm3 (4.0-10.0)
[2018-06-27] MEDS: MAGNESIUM 1GM/D5W 100ML - 100 ML IVPB IVPB SCH ×2 (10:19→11:44)
[2018-06-27 10:38] LABS: ANISOCYTOSIS 3+; MACROCYTOSIS 0; PLATELET ESTIMATE INCREASED
--- NOTE | 2018-06-27 11:11 | PN ---
Physical Exam: SUBJECTIVE: Patient is a 58 y/o female with a history of IDDM, anemia, hTN, gastric ulcers, gastric bypass, IBS, chronic diarrhea who is here for anemia, colitis, and leukocytosis. Patient reports she had 3 episodes of diarrhea last night. She denies feelings of fevers or chills. She had fevers overnight with a TMAX of 100.4. OBJECTIVE: Vital Signs Period Temp Pulse Resp BP Sys/Funes Pulse Ox Last 24 Hr 99.2 F-100.4 F 82-124 18-20 112-143/45-97 98-100 GENERAL: The patient is awake, alert, and fully oriented, in no acute distress. HEAD: Normal with no signs of trauma. EYES: PERRL, extraocular movements intact LUNGS: Breath sounds equal, clear to auscultation bilaterally HEART: Regular rate and rhythm, ABDOMEN: Soft, diffusely tender to palpation, nondistended, normoactive bowel sounds, EXTREMITIES: warm, well-perfused, no edema. PSYCH: Normal mood, normal affect. SKIN: Warm, dry, normal turgor, no rashes or lesions noted Laboratory Results - last 24 hr 06/25/18 06/26/18 06/26/18 17:11 05:45 05:45 WBC RBC Hgb Hct MCV MCH MCHC RDW Plt Count MPV Absolute Neuts (auto) Neutrophils % Neutrophils % (Manual) 43.9 D Band Neutrophils % 43.9 Lymphocytes % Lymphocytes % (Manual) 7.2 L D Monocytes % Monocytes % (Manual) 2 L Eosinophils % Eosinophils % (Manual) 1.0 Basophils % Basophils % (Manual) 0.0 Myelocytes % (Man) 2 Promyelocytes % (Man) 0 Blast Cells % (Manual) 0 Nucleated RBC % 2 H Metamyelocytes 0 D Hypochromia 2+ Platelet Estimate Increased Polychromasia 2+ Poikilocytosis 1+ Anisocytosis 3+ Microcytosis 1+ Macrocytosis 0 Delgado Cells 1+ Sodium 138 Potassium 4.6 Chloride 109 H Carbon Dioxide 16 L Anion Gap 13 BUN 62 H Creatinine 2.0 H Creat Clearance w eGFR 25.50 POC Glucometer Random Glucose 69 L Hemoglobin A1c % Calcium 6.8 L* Phosphorus 4.1 Magnesium 0.9 L Iron TIBC Iron Saturation Transferrin 207 Ferritin 44.0 Total Bilirubin AST ALT Alkaline Phosphatase Total Protein Albumin Vitamin B12 793 Serum Folate 18 H TSH 06/26/18 06/26/18 06/26/18 11:12 11:15 17:06 WBC RBC Hgb Hct MCV MCH MCHC RDW Plt Count MPV Absolute Neuts (auto) Neutrophils % Neutrophils % (Manual) Band Neutrophils % Lymphocytes % Lymphocytes % (Manual) Monocytes % Monocytes % (Manual) Eosinophils % Eosinophils % (Manual) Basophils % Basophils % (Manual) Myelocytes % (Man) Promyelocytes % (Man) Blast Cells % (Manual) Nucleated RBC % Metamyelocytes Hypochromia Platelet Estimate Polychromasia Poikilocytosis Anisocytosis Microcytosis Macrocytosis Delgado Cells Sodium Potassium Chloride Carbon Dioxide Anion Gap BUN Creatinine Creat Clearance w eGFR POC Glucometer 65 136 Random Glucose Hemoglobin A1c % Calcium Phosphorus Magnesium Iron 21 L TIBC 265 Iron Saturation 8 L Transferrin Ferritin Total Bilirubin AST ALT Alkaline Phosphatase Total Protein Albumin Vitamin B12 Serum Folate TSH 06/27/18 06/27/18 06/27/18 05:52 06:00 06:00 WBC 24.6 H RBC 4.29 Hgb 10.0 L Hct 30.4 L MCV 70.9 L MCH 23.4 L MCHC 33.0 RDW 23.4 H Plt Count 612 H MPV 7.4 L Absolute Neuts (auto) 22.5 Neutrophils % No Result Required. Neutrophils % (Manual) 93.0 H D Band Neutrophils % 0.0 Lymphocytes % No Result Required. Lymphocytes % (Manual) 4.0 L D Monocytes % Monocytes % (Manual) 3 L Eosinophils % Eosinophils % (Manual) 0.0 D Basophils % Basophils % (Manual) 0.0 Myelocytes % (Man) 0 D Promyelocytes % (Man) 0 Blast Cells % (Manual) 0 Nucleated RBC % 0 Metamyelocytes 0 Hypochromia 0 Platelet Estimate Increased Polychromasia 2+ Poikilocytosis 1+ Anisocytosis 3+ Microcytosis 2+ Macrocytosis 0 Delgado Cells Sodium 142 Potassium 4.3 Chloride 112 H Carbon Dioxide 18 L Anion Gap 12 BUN 28 H D Creatinine 0.9 Creat Clearance w eGFR > 60 POC Glucometer 113 Random Glucose 115 H Hemoglobin A1c % Calcium 7.8 L Phosphorus Magnesium 1.5 L Iron TIBC Iron Saturation Transferrin Ferritin Total Bilirubin 0.3 AST 13 L ALT 15 Alkaline Phosphatase 73 D Total Protein 4.9 L Albumin 2.1 L Vitamin B12 Serum Folate TSH 0.67 06/27/18 06/27/18 06/27/18 06:00 08:00 09:45 WBC 24.2 H RBC 3.95 Hgb 8.9 L Hct 27.9 L MCV 70.6 L MCH 22.6 L MCHC 32.0 RDW 24.2 H Plt Count 538 H MPV 7.4 L Absolute Neuts (auto) 22.2 Neutrophils % 92.0 H Neutrophils % (Manual) No Result Required. Band Neutrophils % Lymphocytes % 3.8 L D Lymphocytes % (Manual) Monocytes % 4.0 Monocytes % (Manual) Eosinophils % 0.1 D Eosinophils % (Manual) Basophils % 0.1 Basophils % (Manual) Myelocytes % (Man) Promyelocytes % (Man) Blast Cells % (Manual) Nucleated RBC % 0 Metamyelocytes Hypochromia Platelet Estimate Polychromasia Poikilocytosis Anisocytosis Microcytosis Macrocytosis [place] Cells Sodium Potassium Chloride Carbon Dioxide Anion Gap BUN Creatinine Creat Clearance w eGFR POC Glucometer Random Glucose Hemoglobin A1c % 6.9 H Calcium Phosphorus Magnesium Cancelled Iron TIBC Iron Saturation Transferrin Ferritin Total Bilirubin AST ALT Alkaline Phosphatase Total Protein Albumin Vitamin B12 Serum Folate TSH Active Medications Generic Name Dose Route Start Last Admin Trade Name Sharanq PRN Reason Stop Dose Admin Acetaminophen 325 mg 06/25/18 22:00 06/27/18 09:20 Tylenol - PO 325 mg BID YAMILKA Administration Ceftriaxone Sodium 1 gm/ 50 mls @ 100 mls/hr 06/25/18 20:30 06/26/18 19:49 Dextrose IVPB 100 mls/hr DAILY@2030 YAMILKA Administration Metronidazole 500 mg in 100 mls @ 100 mls/hr 06/26/18 02:00 06/27/18 09:21 Flagyl 500mg Premixed Ivpb - IVPB 100 mls/hr Q8H-IV YAMILKA Administration Sodium Chloride 1,000 mls @ 75 mls/hr 06/26/18 18:00 06/26/18 19:50 Normal Saline - IV 75 mls/hr ASDIR YAMILKA Administration Insulin Aspart 1 vial 06/27/18 07:00 06/27/18 06:03 Novolog Vial Sliding Scale - SQ Not Given [facility] Protocol Nystatin 500,000 units 06/27/18 12:00 Nystatin Oral Suspension - PO Q6HPO YAMILKA Oxycodone HCl 10 mg 06/25/18 22:00 06/27/18 09:19 Roxicodone - PO 10 mg BID YAMILKA Administration ASSESSMENT/PLAN: Patient is a 58 y/o female with a history of IDDM, anemia, hTN, gastric ulcers, gastric bypass, IBS, chronic diarrhea who is here for anemia, colitis, and leukocytosis. #anemia - s/p one unit PRBC, current HGB 10 - f/u Dr. Cha, upper and lower endoscopy once stable - hold ASA - iron studies: iron: 21(L), TIBC: 265 , Iron saturation: 8 (L), transferrin : 207, ferritin: 44 #leukocytosis - WBC 24.6 - Ceftriaxone 1gm ( day 2) and Metronidazole 500 mg q 8h (day 2) - febrile over night TMAX: 100.4 - f/u blood cx, urine cx - c diff negative - f/u hepatitis pannel, immunologic labs - ID consult Dr. Trejo - f/u head CT #colitis - Abd CT: mild continuos concentric wall thickening along sigmoid and descending colon mild concentric wall thickening involving distal small bowel loop with right lower pelvis may be basis of acute or chronic enteroclotitis - stool cx pending #ELLA: resolved - BUN/ Cr stable - NS @ 75 #DM - SS for now - A1C: 6.9 - hold home meds for now #thrush - continue nystatin #chronic pain -oxycodone 10 mg po prn FEN: -repleted Mg Visit type - Emergency Visit Emergency Visit: No - New Patient This patient is new to me today: Yes Date on this admission: 06/27/18 - Critical Care Critical Care patient: No - Discharge Referral Referred to [facility] No
[2018-06-27] MEDS ORDERED: INSULIN (NOVOLOG) ASPART 100 UNITS/ML 10ML VIAL ONE (12:08)
[2018-06-27] MEDS: NYSTATIN 500,000 UNITS/5 ML SUSPENSION PO SCH ×3 (12:29→23:18)
--- NOTE | 2018-06-27 13:19 | PN ---
GI Progress Note Subjective: Found resting comfortably watching TV States having burning abdominal pain No acute events No overt bleeding Had 1 episode of diarrhea this monring - Objective Vital Signs: Vital Signs Temperature 100.1 F H 06/27/18 10:00 Pulse Rate 114 H 06/27/18 10:00 Respiratory Rate 18 06/27/18 10:00 Blood Pressure 148/64 06/27/18 10:00 O2 Sat by Pulse Oximetry (%) 98 06/27/18 09:00 Constitutional: Calm Eyes: No: Sclera Icterus Cardiovascular: Yes: Tachycardia Respiratory: Yes: CTA Bilaterally Gastrointestinal Inspection: No: Distention ...Auscultate: Yes: Normoactive Bowel Sounds ...Palpate: Yes: Tenderness (mild TTP left abdomen) ...Percussion: No: Tympanitic Edema: No (No LE edema) Neurological: Yes: Alert Psychiatric: Yes: Alert Labs: CBC, BMP 06/27/18 09:45 06/27/18 06:00 INR, PTT INR 1.66 (0.82-1.09) H 06/26/18 05:45 Laboratory Tests 06/25/18 19:00 Stool O & P Wet Mount Cancelled O & P Permanent Slide Cancelled Microbiology 06/25/18 19:38 Stool Clostridium difficile Antigen (MISTI) - negative 06/25/18 19:38 Stool Clostridium difficile Toxin Assay - negative AFB stool study oncollected Laboratory Tests 06/27/18 06/27/18 06/27/18 06:00 06:00 06:00 IgA Pending Endomysial IgA Ab Pending Tiss Transglutamin IgG Pending Tiss Transglutamin IgA Pending Anti-Gliadin IgG Ab Pending RPR Titer Hepatitis A Ab Total Pending Hep Bs Antigen Pending Hep Bs Antibody Pending Hep B Core Total Ab Pending Hep C Ab Diagnostic Pending HIV 1&2 Antibody Screen HIV P24 Antigen 06/27/18 06/27/18 06:00 06:00 IgA Endomysial IgA Ab Tiss Transglutamin IgG Tiss Transglutamin IgA Anti-Gliadin IgG Ab RPR Titer Nonreactive Hepatitis A Ab Total Hep Bs Antigen Hep Bs Antibody Hep B Core Total Ab Hep C Ab Diagnostic HIV 1&2 Antibody Screen Negative HIV P24 Antigen Negative Problem List - Problems (1) Chronic diarrhea Assessment/Plan: Awaiting stool studies All O&P studies have been cancelled due to incorrect collection procedure: will need O&P x 3 checked AFB stool study uncollected as of yet Continue Clear diet Awaiting celiac serologies Crypto/giardia stool study ordered but not collected as of yet ID following Code(s): K52.9 - NONINFECTIVE GASTROENTERITIS AND COLITIS, UNSPECIFIED (2) Microcytic anemia Assessment/Plan: No overt GI bleeding Consider heme eval For possible EGD on friday followed by flex sig vs. colonoscopy Code(s): D50.9 - IRON DEFICIENCY ANEMIA, UNSPECIFIED (3) Opioid abuse Assessment/Plan: Eval per primary team Code(s): F11.10 - OPIOID ABUSE, UNCOMPLICATED
[2018-06-27] MEDS: PANTOPRAZOLE 40 MG TABLET (FP) PO SCH (13:40)
--- NOTE | 2018-06-27 14:37 | PN ---
Progress Note (short form) - Note Progress Note: continue abdominal pain unchanged for last 3 months still diarrhea- like "pesto" Vital Signs Period Temp Pulse Resp BP Sys/Funes Pulse Ox Last 24 Hr 99.2 F-100.4 F 108-124 18-20 121-148/64-97 98-100 cor-rrr lungs clear abd soft,mild left sided discomfort to palpation ext no fifi CBC, BMP 06/27/18 09:45 06/27/18 06:00 Microbiology 06/25/18 13:12 Blood - Peripheral Venous Blood Culture - Preliminary NO GROWTH OBTAINED AFTER 48 HOURS, INCUBATION TO CONTINUE FOR 3 DAYS. 06/25/18 13:12 Blood - Peripheral Venous Blood Culture - Preliminary NO GROWTH OBTAINED AFTER 48 HOURS, INCUBATION TO CONTINUE FOR 3 DAYS. 06/25/18 12:56 Stool Salmonella/Shigella Culture - Preliminary NO ENTERIC PATHOGENS, 24 HOURS, ON PRIMARY PLATES 06/25/18 12:56 Stool Yersinia Culture - Preliminary NO ENTERIC PATHOGENS, 24 HOURS, ON PRIMARY PLATES 06/25/18 12:56 Stool Vibrio Culture - Preliminary NO ENTERIC PATHOGENS, 24 HOURS, ON PRIMARY PLATES 06/25/18 12:56 Stool Escherichia coli 0157 Culture - Preliminary NO ENTERIC PATHOGENS, 24 HOURS, ON PRIMARY PLATES 06/25/18 18:00 Urine - Urine - Catheterized Urine Culture - Final NO GROWTH OBTAINED 06/25/18 19:38 Stool Gram Stain - Final 06/25/18 19:38 Stool Clostridium difficile Antigen (MISTI) - Final 06/25/18 19:38 Stool Clostridium difficile Toxin Assay - Final HIV negative a/p colitis anemia ELLA wt loss ?dementia-apppears to have word finding difficulties and memory issues diabetes agree with repeat cultures stool ova and parasites ordered continue rocephin/flagyl ella resolved
--- NOTE | 2018-06-27 15:43 | CONS ---
INFECTIOUS DISEASE CONSULTATION DATE OF CONSULTATION: DATE OF DICTATION: 06/27/2018 HISTORY OF PRESENT ILLNESS: The patient was seen yesterday and evaluated. Complete consultation dictated today. This is a 58-year-old woman who lives with her partner of 14 years here in [place]. She was admitted with fatigue and weakness for a month. She has lost at least 20 pounds in the last 2 months. She reports she has had diarrhea also for the last several months. She reports that the bowel movements have been nonbloody. She denies any abdominal pain. She has a history of chronic anemia. She was told 2 months ago she needed a transfusion, but she did not follow up. She denies any fevers or chills. She does not have any regular doctors. She is on chronic Percocet for back pain which she says is given to her by a pain doctor. She presented to the emergency room with this fatigue and weakness. She was found to have severe anemia and acute kidney injury. She received a 2-unit blood transfusion. She was found on CAT scan to have colitis and she was admitted for further evaluation. PAST MEDICAL HISTORY: Notable for a history of diabetes, hypertension, hyperlipidemia, GERD, opioid dependence, chronic back pain. Surgical history: She is status post cholecystectomy. She has had bariatric surgery 9 years ago and she does not take her vitamins anymore. She reports she was HIV tested in the past, not recently, but she has had hepatitis serology done as well which are negative. She also does note that she has neuropathy. FAMILY HISTORY: Is notable. Father had Crohn disease and of a heart attack. Mother is healthy. ALLERGIES: She has no known drug allergies. MEDICATIONS: As an outpatient include Amaryl, Prinivil, Prilosec, pravastatin, Januvia, Glucophage, aspirin, vitamin C, vitamin D, Fenofibrate, insulin, multivitamins, and pravastatin. It is unclear, if she is not following up regularly, who she is getting her medications from. SOCIAL HISTORY: She denies cigarette or alcohol use. She lives with her fiancee of 14 years. They have a pet dog. There has been no recent travel. REVIEW OF SYSTEMS: She denies fevers or chills. She notes she has lost weight. She notes she has chronic diarrhea without any cramps and that she is chronically anemic. She has chronic low back pain, as well. PHYSICAL EXAMINATION: Vital signs: Current temperature is 100.1, T-maximum of 100.4, pulse of 114, blood pressure 148/64, respiratory rate is 18. She is saturating 98%. HEENT: She is normocephalic. Her eyes are anicteric. Neck: Supple. Lungs: Clear to auscultation. Heart: Regular rate and rhythm. Abdomen: Soft. Nontender. Extremities: Without edema. LABORATORY DATA: White count was 16, hemoglobin 9, platelets of 510. Her chemistry is notable for BUN and creatinine of 62 and 2 with a lactic acid of 2.1. Urinalysis was negative. She had a positive stool occult blood. ASSESSMENT: An elderly woman with chronic diarrhea and weight loss. A 58-year-old woman with diabetes by CAT scan has colitis. She also has a history of anemia, guaiac-positive stools, acute kidney injury, and weight loss. I question whether she has early dementia. She appears to have word-finding difficulties and memory issues. PLAN: Would agree with Aleksey and Leah. Stool studies to include stool ova and parasite, stool culture, C difficile, cryptosporidium, giardia, celiac workup. Perhaps, she has a nutritional deficiency due to the gastric bypass. She HIV testing which was ordered. She should have hepatitis serology, a TSH, RPR, a sedimentation rate, and CRP. Consider head CT, as well. Further recommendations to follow. MARTIN ALLEN M.D. [id number]
[2018-06-27] MEDS: SODIUM CHLORIDE 1,000 ML IV SCH (16:59)
[2018-06-27] MEDS ORDERED: cefTRIAXone SODIUM 1 GM VIAL ONE (21:09)
[2018-06-27] MEDS ORDERED: DEXTROSE 5%-WATER - 50 ML IVPB ONE (21:09)
[2018-06-27] MEDS: CEFTRIAXONE 1 GM in DEXTROSE 5%-WATER - 50 ML IVPB SCH (21:12)
[2018-06-27] MEDS: oxyCODONE HCL 5 MG TABLET PO PRN (21:12)
[2018-06-28] MEDS: NYSTATIN 500,000 UNITS/5 ML SUSPENSION PO SCH ×3 (06:06→11:41)
[2018-06-28] MEDS: INSULIN SLIDING SCALE (NOVOLOG) 1 VIAL SQ SCH ×3 (06:07→17:49)
[2018-06-28] MEDS ORDERED: ACETAMINOPHEN 325 MG TABLET (FP) PO ONE ×2 (06:33→17:15)
[2018-06-28] MEDS: SODIUM CHLORIDE 1,000 ML IV SCH ×2 (06:46→18:49)
[2018-06-28 07:25] LABS: BASO % 0.2 % (0-2.0); EOS % 0.4 % (0-4.5); HEMATOCRIT 26.3 % (32.4-45.2); HEMOGLOBIN 8.7 GM/dL (10.7-15.3); LYMPH % 7.2 % (8-40); MCH 23.5 pg (25.7-33.7); MCHC 33.1 g/dl (32.0-36.0); MEAN CELL VOLUME 71.2 fl (80-96); MEAN PLT VOLUME 7.2 fl (7.5-11.1); MONO % 5.8 % (3.8-10.2); NEUT % 86.4 % (42.8-82.8); PLATELET COUNT 494 K/MM3 (134-434); RDW 23.7 % (11.6-15.6); WHITE BLOOD COUNT 20.7 K/mm3 (4.0-10.0)
[2018-06-28 07:54] LABS: ALBUMIN 1.7 g/dl (3.4-5.0); ANION GAP 9 (8-16); BLOOD UREA NITROGEN 10 mg/dL (7-18); CALCIUM 7.6 mg/dL (8.5-10.1); CHLORIDE 109 mmol/L (98-107); CO2 22 mmol/L (21-32); GLUCOSE,RANDOM 161 mg/dL (74-106); POTASSIUM 3.9 mmol/L (3.5-5.1); SODIUM 140 mmol/L (136-145)
[2018-06-28 07:57] LABS: ALK PHOS 72 U/L (45-117); BILIRUBIN,TOTAL 0.3 mg/dL (0.2-1.0); CREATININE 0.6 mg/dL (0.55-1.02); MAGNESIUM 1.4 mg/dL (1.8-2.4); SGOT/AST 9 U/L (15-37); SGPT/ALT 13 U/L (12-78); TOT PROT 4.2 g/dl (6.4-8.2)
[2018-06-28 08:09] LABS: HBSAG SCREEN Negative (Negative); HEP B CORE AB, TOT Negative (Negative)
[2018-06-28] MEDS: PANTOPRAZOLE 40 MG TABLET (FP) PO SCH (09:22)
[2018-06-28] MEDS: oxyCODONE HCL 5 MG TABLET PO PRN ×2 (09:23→21:52)
[2018-06-28] MEDS: ACETAMINOPHEN 325 MG TABLET (FP) PO SCH ×2 (09:24→21:46)
--- NOTE | 2018-06-28 11:48 | PN ---
GI Progress Note Subjective: No diarrhea today continued abdominal pain - Objective Vital Signs: Vital Signs Temperature 99.9 F H 06/28/18 06:00 Pulse Rate 91 H 06/28/18 06:00 Respiratory Rate 20 06/28/18 06:00 Blood Pressure 140/72 06/28/18 06:00 O2 Sat by Pulse Oximetry (%) 98 06/27/18 09:00 Constitutional: Calm Eyes: No: Sclera Icterus Cardiovascular: Yes: Regular Rate and Rhythm Respiratory: Yes: CTA Bilaterally Gastrointestinal Inspection: No: Distention ...Auscultate: Yes: Normoactive Bowel Sounds ...Palpate: Yes: Tenderness (I improved TTP leftr abdomen) ...Percussion: No: Tympanitic Edema: No (No LE edema) Neurological: Yes: Alert Labs: CBC, BMP 06/28/18 06:00 06/28/18 06:00 INR, PTT INR 1.66 (0.82-1.09) H 06/26/18 05:45 Hepatic Panel Total Bilirubin 0.3 mg/dL (0.2-1.0) 06/28/18 06:00 AST 9 U/L (15-37) L 06/28/18 06:00 ALT 13 U/L (12-78) 06/28/18 06:00 Alkaline Phosphatase 72 U/L (45-117) 06/28/18 06:00 Albumin 1.7 g/dl (3.4-5.0) L 06/28/18 06:00 Problem List - Problems (1) Chronic diarrhea Assessment/Plan: No diarrhea today + fecal leukocytes: favor inflammatory process for EGD/Colon tomorrow. Discussed potential risks of the procedures like but not limited to bleeding, perforation requiring surgery to repair, infection, sedation medication effects all of which could beb potentially life threatening. She has agreed to the procedures. Will attempt colonoscopy with just tap water enema tomorrow morning. If full prep needed will prep for friday. Correct coagulopathy IV hydration Clears for now. NPO after midnight Code(s): K52.9 - NONINFECTIVE GASTROENTERITIS AND COLITIS, UNSPECIFIED (2) Microcytic anemia Assessment/Plan: Awaiting celiac serologies For EGD/Colon tomorrow Code(s): D50.9 - IRON DEFICIENCY ANEMIA, UNSPECIFIED
[2018-06-28 12:02] LABS: ANISOCYTOSIS 2+; MACROCYTOSIS 1+; PLATELET ESTIMATE NORMAL
[2018-06-28 12:35] LABS: INR 1.52 (0.82-1.09); PROTHROMBIN TIME (PATIENT) 17.2 SEC (9.7-13.0)
--- NOTE | 2018-06-28 14:43 | PN ---
Progress Note (short form) - Note Progress Note: Subjective:No fever or chills. feels her Abd is distended. no diarrhea since yesterday. Last Vital Signs Temp Pulse Resp BP Pulse Ox 99.0 F 93 H 18 112/68 96 06/28/18 10:00 06/28/18 10:00 06/28/18 10:00 06/28/18 10:00 06/28/18 10:00 Laboratory Results - last 24 hr 06/27/18 06/27/18 06/27/18 06:00 06:00 16:16 WBC RBC Hgb Hct MCV MCH MCHC RDW Plt Count MPV Absolute Neuts (auto) Neutrophils % Neutrophils % (Manual) Band Neutrophils % Lymphocytes % Lymphocytes % (Manual) Monocytes % Monocytes % (Manual) Eosinophils % Eosinophils % (Manual) Basophils % Basophils % (Manual) Myelocytes % (Man) Promyelocytes % (Man) Blast Cells % (Manual) Nucleated RBC % Metamyelocytes Hypochromia Platelet Estimate Polychromasia Poikilocytosis Anisocytosis Microcytosis Macrocytosis PT with INR INR Sodium Potassium Chloride Carbon Dioxide Anion Gap BUN Creatinine Creat Clearance w eGFR POC Glucometer 176 Random Glucose Calcium Magnesium Total Bilirubin AST ALT Alkaline Phosphatase Total Protein Albumin Hepatitis A Ab Total Negative Hep Bs Antigen Negative Hep Bs Antibody Non reactive Hep B Core Total Ab Negative Hep C Ab Diagnostic <0.1 Liver Fibrosis Interp 06/28/18 06/28/18 06/28/18 05:57 06:00 06:00 WBC 20.7 H RBC 3.70 Hgb 8.7 L Hct 26.3 L MCV 71.2 L MCH 23.5 L MCHC 33.1 RDW 23.7 H Plt Count 494 H MPV 7.2 L Absolute Neuts (auto) 17.8 Neutrophils % 86.4 H Neutrophils % (Manual) 79.8 Band Neutrophils % 0.0 Lymphocytes % 7.2 L D Lymphocytes % (Manual) 13.1 D Monocytes % 5.8 Monocytes % (Manual) 5 Eosinophils % 0.4 D Eosinophils % (Manual) 1.0 D Basophils % 0.2 Basophils % (Manual) 0.0 Myelocytes % (Man) 0 Promyelocytes % (Man) 0 Blast Cells % (Manual) 0 Nucleated RBC % 0 Metamyelocytes 1 D Hypochromia 2+ Platelet Estimate Normal Polychromasia 2+ Poikilocytosis 0 Anisocytosis 2+ Microcytosis 1+ Macrocytosis 1+ PT with INR INR Sodium 140 Potassium 3.9 Chloride 109 H Carbon Dioxide 22 Anion Gap 9 BUN 10 Creatinine 0.6 Creat Clearance w eGFR > 60 POC Glucometer 180 Random Glucose 161 H Calcium 7.6 L Magnesium 1.4 L Total Bilirubin 0.3 AST 9 L ALT 13 Alkaline Phosphatase 72 Total Protein 4.2 L Albumin 1.7 L Hepatitis A Ab Total Hep Bs Antigen Hep Bs Antibody Hep B Core Total Ab Hep C Ab Diagnostic Liver Fibrosis Interp 06/28/18 06/28/18 11:45 11:50 WBC RBC Hgb Hct MCV MCH MCHC RDW Plt Count MPV Absolute Neuts (auto) Neutrophils % Neutrophils % (Manual) Band Neutrophils % Lymphocytes % Lymphocytes % (Manual) Monocytes % Monocytes % (Manual) Eosinophils % Eosinophils % (Manual) Basophils % Basophils % (Manual) Myelocytes % (Man) Promyelocytes % (Man) Blast Cells % (Manual) Nucleated RBC % Metamyelocytes Hypochromia Platelet Estimate Polychromasia Poikilocytosis Anisocytosis Microcytosis Macrocytosis PT with INR 17.20 H* INR 1.52 H Sodium Potassium Chloride Carbon Dioxide Anion Gap BUN Creatinine Creat Clearance w eGFR POC Glucometer 180 Random Glucose Calcium Magnesium Total Bilirubin AST ALT Alkaline Phosphatase Total Protein Albumin Hepatitis A Ab Total Hep Bs Antigen Hep Bs Antibody Hep B Core Total Ab Hep C Ab Diagnostic Liver Fibrosis Interp Physical Exam: NAD. Cv: RRR Lungs: CTAB Ext : no edema Abd: soft,slightly more prominent than yesterday in upper area. hyperactive BS. TTP in all quadrants ( minimal ) A/P : 58 y/o lady with h/o HTN, Dm , anemia, H/o gastric ulcers and polyps , gastric bypass sx, IBS, chronic diarrhea, and opioid dependence who presented with fatigue.she was found to have ELLA, severe anemia and acidosis 1- Worsening chronic microcytic anemia, s/p 2 units of RBC . stable HB now . - EGD and colo tomorrow - peripheral smear is still pending. lab called - Hb electropheresis pending 2- ELLA: prerenal in etiology. Nl cr . cont IVF. if BP elevated , can resume lisinopril 3- Non AG Acidosis : due to bicarb loss through GI tract. resolved 4- Leukocytosis : improved. cont ceftriaxone and flagyl for colitis colo tomorrow 5-Diarrhea: infectious colitis , Vs celiac, Vs IBS Vs. others - diarrhea stopped, abd slightly more distended, and hyperactive BS heard---> KUB ; with dilated bowel loops. will d/w GI and repeat KUB in am - repeat lactic - follow celiac serology 6- DM: A1c 6.9 . on 3 oral agents and HS insulin at home., doubt she is taking all this. - cont SSI - At dc will need one oral agent 7- Elevated INR: likely nutritional def. - s/p 1 dose of Vit K . trend for procedure tomorrow 8- Possible dementia ; head CT pending. B12 , TSH NL RPR , HIV neg 9- LE edema , could be due to hypoalbunemia , but will check Echo HLOC SCDS Visit type - Emergency Visit Emergency Visit: Yes ED Registration Date: 06/25/18 Care time: The patient presented to the Emergency Department on the above date and was hospitalized for further evaluation of their emergent condition. - New Patient This patient is new to me today: No - Critical Care Critical Care patient: No
[2018-06-28] MEDS ORDERED: PHYTONADIONE 10 MG/1 ML AMP SQ ONE (14:45)
[2018-06-28] MEDS: MAGNESIUM 1GM/D5W 100ML - 100 ML IVPB IVPB SCH ×3 (16:26→20:08)
[2018-06-28] MEDS: CEFTRIAXONE 1 GM in DEXTROSE 5%-WATER - 50 ML IVPB SCH (21:00)
[2018-06-28] MEDS ORDERED: cefTRIAXone SODIUM 1 GM VIAL ONE (21:02)
[2018-06-28] MEDS ORDERED: DEXTROSE 5%-WATER - 50 ML IVPB ONE (21:02)
[2018-06-28] MEDS: NYSTATIN 100,000 UNIT/GM TOPICAL CREAM 15 GM TUBE TP SCH (21:48)
[2018-06-29] MEDS: SODIUM CHLORIDE 1,000 ML IV SCH (01:55)
[2018-06-29] MEDS ORDERED: ACETAMINOPHEN 325 MG TABLET (FP) PO ONE ×2 (02:30→06:13)
[2018-06-29] MEDS: INSULIN SLIDING SCALE (NOVOLOG) 1 VIAL SQ SCH ×3 (06:08→17:59)
--- NOTE | 2018-06-29 06:57 | PN ---
Physical Exam: SUBJECTIVE: Patient is a 58 y/o female with a history of IDDM, anemia, HTN, gastric ulcers, gastric bypass, IBS, chronic diarrhea who is here for anemia, colitis, and leukocytosis. Patient reports she had a couple episodes of diarrhea overnight and still describes it as pesto like. She states she still feels feverish and overnight had a TMAX of 100.6. Endoscopy tomorrow. OBJECTIVE: Vital Signs Period Temp Pulse Resp BP Sys/Funes Pulse Ox Last 24 Hr 98.4 F-101.4 F 88-98 16-20 111-143/55-68 96-97 GENERAL: The patient is awake, alert, and fully oriented, in no acute distress. HEAD: Normal with no signs of trauma. EYES: PERRL, extraocular movements intact LUNGS: Breath sounds equal, clear to auscultation bilaterally HEART: Regular rate and rhythm, ABDOMEN: Soft, diffusely tender to palpation, nondistended, normoactive bowel sounds, EXTREMITIES: warm, well-perfused, no edema. PSYCH: Normal mood, normal affect. SKIN: Warm, dry, normal turgor, no rashes or lesions noted Laboratory Results - last 24 hr 06/25/18 06/27/18 06/28/18 13:12 06:00 06:00 WBC 20.7 H RBC 3.70 Hgb 8.7 L Hct 26.3 L MCV 71.2 L MCH 23.5 L MCHC 33.1 RDW 23.7 H Plt Count 494 H MPV 7.2 L Absolute Neuts (auto) 17.8 Neutrophils % 86.4 H Neutrophils % (Manual) 79.8 Band Neutrophils % 0.0 Lymphocytes % 7.2 L D Lymphocytes % (Manual) 13.1 D Monocytes % 5.8 Monocytes % (Manual) 5 Eosinophils % 0.4 D Eosinophils % (Manual) 1.0 D Basophils % 0.2 Basophils % (Manual) 0.0 Myelocytes % (Man) 0 Promyelocytes % (Man) 0 Blast Cells % (Manual) 0 Nucleated RBC % 0 Metamyelocytes 1 D Hypochromia 2+ Platelet Estimate Normal Polychromasia 2+ Poikilocytosis 0 Anisocytosis 2+ Microcytosis 1+ Macrocytosis 1+ PT with INR INR Sodium Potassium Chloride Carbon Dioxide Anion Gap BUN Creatinine Creat Clearance w eGFR POC Glucometer Random Glucose Lactic Acid Calcium Magnesium Total Bilirubin AST ALT Alkaline Phosphatase Total Protein Albumin Hepatitis A Ab Total Negative Hep Bs Antigen Negative Hep Bs Antibody Non reactive Hep B Core Total Ab Negative Blood Type O POSITIVE Antibody Screen Positive H Antibody Identification Anti-k Crossmatch See Detail 06/28/18 06/28/18 06/28/18 06:00 11:45 11:50 WBC RBC Hgb Hct MCV MCH MCHC RDW Plt Count MPV Absolute Neuts (auto) Neutrophils % Neutrophils % (Manual) Band Neutrophils % Lymphocytes % Lymphocytes % (Manual) Monocytes % Monocytes % (Manual) Eosinophils % Eosinophils % (Manual) Basophils % Basophils % (Manual) Myelocytes % (Man) Promyelocytes % (Man) Blast Cells % (Manual) Nucleated RBC % Metamyelocytes Hypochromia Platelet Estimate Polychromasia Poikilocytosis Anisocytosis Microcytosis Macrocytosis PT with INR 17.20 H* INR 1.52 H Sodium 140 Potassium 3.9 Chloride 109 H Carbon Dioxide 22 Anion Gap 9 BUN 10 Creatinine 0.6 Creat Clearance w eGFR > 60 POC Glucometer 180 Random Glucose 161 H Lactic Acid Calcium 7.6 L Magnesium 1.4 L Total Bilirubin 0.3 AST 9 L ALT 13 Alkaline Phosphatase 72 Total Protein 4.2 L Albumin 1.7 L Hepatitis A Ab Total Hep Bs Antigen Hep Bs Antibody Hep B Core Total Ab Blood Type Antibody Screen Antibody Identification Crossmatch 06/28/18 06/28/18 06/29/18 17:48 18:37 05:51 WBC RBC Hgb Hct MCV MCH MCHC RDW Plt Count MPV Absolute Neuts (auto) Neutrophils % Neutrophils % (Manual) Band Neutrophils % Lymphocytes % Lymphocytes % (Manual) Monocytes % Monocytes % (Manual) Eosinophils % Eosinophils % (Manual) Basophils % Basophils % (Manual) Myelocytes % (Man) Promyelocytes % (Man) Blast Cells % (Manual) Nucleated RBC % Metamyelocytes Hypochromia Platelet Estimate Polychromasia Poikilocytosis Anisocytosis Microcytosis Macrocytosis PT with INR INR Sodium Potassium Chloride Carbon Dioxide Anion Gap BUN Creatinine Creat Clearance w eGFR POC Glucometer 293 183 Random Glucose Lactic Acid 1.8 Calcium Magnesium Total Bilirubin AST ALT Alkaline Phosphatase Total Protein Albumin Hepatitis A Ab Total Hep Bs Antigen Hep Bs Antibody Hep B Core Total Ab Blood Type Antibody Screen Antibody Identification Crossmatch Active Medications Generic Name Dose Route Start Last Admin Trade Name Freq PRN Reason Stop Dose Admin Acetaminophen 325 mg 06/25/18 22:00 06/28/18 21:46 Tylenol - PO 325 mg BID YAMILKA Administration Ceftriaxone Sodium 1 gm/ 50 mls @ 100 mls/hr 06/25/18 20:30 06/28/18 21:00 Dextrose IVPB 100 mls/hr DAILY@2030 YAMILKA Administration Metronidazole 500 mg in 100 mls @ 100 mls/hr 06/26/18 02:00 06/29/18 01:55 Flagyl 500mg Premixed Ivpb - IVPB 100 mls/hr Q8H-IV YAMILKA Administration Sodium Chloride 1,000 mls @ 75 mls/hr 06/26/18 18:00 06/29/18 01:55 Normal Saline - IV 75 mls/hr ASDIR YAMILKA Administration Insulin Aspart 1 vial 06/27/18 07:00 06/29/18 06:08 Novolog Vial Sliding Scale - SQ Not Given TIDAC [facility] Protocol Nystatin 1 applic 06/28/18 22:00 06/28/18 21:48 Mycostatin Cream - TP 1 applic BID YAMILKA Administration Oxycodone HCl 10 mg 06/27/18 11:57 06/28/18 21:52 Roxicodone - PO 10 mg BID PRN Administration PAIN LEVEL 6-10 Pantoprazole Sodium 40 mg 06/27/18 13:30 06/28/18 09:22 Protonix - PO 40 mg DAILY YAMILKA Administration ASSESSMENT/PLAN: Patient is a 58 y/o female with a history of IDDM, anemia, HTN, gastric ulcers, gastric bypass, IBS, chronic diarrhea who is here for anemia, colitis, and leukocytosis. Endoscopy tomorrow. #anemia - s/p one unit PRBC, current HGB 8.6 - f/u Dr. Cha, upper and lower endoscopy 06/30 with water enema - hold ASA - iron studies: iron: 21(L), TIBC: 265 , Iron saturation: 8 (L), transferrin : 207, ferritin: 44 - f/u peripheral smear and HgB electrophoresis #leukocytosis - WBC 15.3 - Ceftriaxone 1gm ( day 4) and Metronidazole 500 mg q 8h (day 4) - febrile over night TMAX: 100.6 - blood cx, urine cx- negative - c diff negative - f/u hepatitis pannel, immunologic labs - ID consult Dr. Trejo - f/u head CT- no acute pathology #colitis - Abd CT: mild continuos concentric wall thickening along sigmoid and descending colon mild concentric wall thickening involving distal small bowel loop with right lower pelvis may be basis of acute or chronic enteroclotitis -abd Xry: suggestive of enterocolitis, could be SBO or ileus - KUB: dilated bowel loops - stool cx pending #ELLA: resolved - BUN/ Cr stable - NS @ 75 #LE edmea - f/u echo - f/u LE doppler #possible dementia -f/u Head CT #DM - SS for now - A1C: 6.9 - hold home meds for now #thrush - continue nystatin #chronic pain -oxycodone 10 mg po prn FEN: Visit type - Emergency Visit Emergency Visit: No - New Patient This patient is new to me today: No - Critical Care Critical Care patient: No
[2018-06-29 07:21] LABS: BASO % 0.3 % (0-2.0); EOS % 1.2 % (0-4.5); HEMATOCRIT 26.8 % (32.4-45.2); HEMOGLOBIN 8.6 GM/dL (10.7-15.3); LYMPH % 11.1 % (8-40); MCH 22.9 pg (25.7-33.7); MCHC 32.1 g/dl (32.0-36.0); MEAN CELL VOLUME 71.3 fl (80-96); MONO % 10.2 % (3.8-10.2); NEUT % 77.2 % (42.8-82.8); PLATELET COUNT 466 K/MM3 (134-434); RBC 3.76 M/mm3 (3.60-5.2); RDW 24.1 % (11.6-15.6); WHITE BLOOD COUNT 15.3 K/mm3 (4.0-10.0)
[2018-06-29 07:55] LABS: INR 1.64 (0.82-1.09); PROTHROMBIN TIME (PATIENT) 18.5 SEC (9.7-13.0)
[2018-06-29 07:58] LABS: ALBUMIN 1.7 g/dl (3.4-5.0); ANION GAP 10 (8-16); BLOOD UREA NITROGEN 6 mg/dL (7-18); CALCIUM 7.5 mg/dL (8.5-10.1); CHLORIDE 109 mmol/L (98-107); CO2 22 mmol/L (21-32); GLUCOSE,RANDOM 185 mg/dL (74-106); MAGNESIUM 1.5 mg/dL (1.8-2.4); POTASSIUM 3.7 mmol/L (3.5-5.1); SODIUM 141 mmol/L (136-145)
[2018-06-29 08:03] LABS: ALK PHOS 64 U/L (45-117); BILIRUBIN,TOTAL 0.4 mg/dL (0.2-1.0); CREATININE 0.5 mg/dL (0.55-1.02); SGOT/AST 5 U/L (15-37); SGPT/ALT 9 U/L (12-78); TOT PROT 4.1 g/dl (6.4-8.2)
--- NOTE | 2018-06-29 08:39 | PN ---
Progress Note (short form) - Note Progress Note: Prelim repeat CT scan report reviewed: Areas of dilated small bowel at level of previous bowel anastamosis, ? ileus vs. early PSBO vs. post op change, fluid in colon, no evidence of colitis, enlarged ovaries Plan for EGD / colon today Await official CT scan read Further eval of enlarged ovaries on CT scan per primary team Problem List - Problems (1) Chronic diarrhea Code(s): K52.9 - NONINFECTIVE GASTROENTERITIS AND COLITIS, UNSPECIFIED (2) Microcytic anemia Code(s): D50.9 - IRON DEFICIENCY ANEMIA, UNSPECIFIED
[2018-06-29] MEDS ORDERED: PT OWN MED DRAWER 7, Y5N ONE (09:20)
[2018-06-29] MEDS: PANTOPRAZOLE 40 MG TABLET (FP) PO SCH (09:23)
[2018-06-29] MEDS: ACETAMINOPHEN 325 MG TABLET (FP) PO SCH ×2 (09:24→21:34)
[2018-06-29] MEDS: NYSTATIN 100,000 UNIT/GM TOPICAL CREAM 15 GM TUBE TP SCH ×2 (09:30→21:34)
[2018-06-29 10:05] LABS: ANISOCYTOSIS 1+; MACROCYTOSIS 0; PLATELET ESTIMATE NORMAL
[2018-06-29] MEDS ORDERED: PHYTONADIONE 10 MG/1 ML AMP SQ ONE (14:15)
--- NOTE | 2018-06-29 14:16 | PN ---
Teaching Attending Note Name of Resident: Whit Thakkar ATTENDING PHYSICIAN STATEMENT I saw and evaluated the patient. I reviewed the resident's note and discussed the case with the resident. I agree with the resident's findings and plan as documented. SUBJECTIVE: Cont to have fever. minimal abd pain. No N/V. has constant diarrhea after enema. green stool , no hematochezia . OBJECTIVE: NAD. Cv: RRR Lungs: CTAB Ext: no edema Abd: soft,Nl BS, TTP in all quadrants ( minimal ) A/P : 58 y/o lady with h/o HTN, Dm , anemia, H/o gastric ulcers and polyps , gastric bypass sx, IBS, chronic diarrhea, and opioid dependence who presented with fatigue. she was found to have ELLA, severe anemia and acidosis 1- Worsening chronic microcytic anemia, s/p 2 units of RBC . stable HB now . - EGD and colonoscopy canceled today - Hb electropheresis pending 2- ELLA:resolved. 3- Non AG Acidosis : due to bicarb loss through GI tract. resolved 4- Leukocytosis and fever : improved. cont ceftriaxone and flagyl for colitis . infectious vs inflammatory colo tomorrow 5-Diarrhea: infectious colitis , Vs celiac, Vs IBS Vs IBD - cont to monitor with IVF - follow celiac serology CT with dilated bowel loops and transverse colon. follow KUB in am .If orsening , might involve surgery consult 6- DM: A1c 6.9 . on 3 oral agents and HS insulin at home., doubt she is taking all this. - cont SSI - At dc will need one oral agent 7- Elevated INR: likely nutritional def. - s/p 1 dose of Vit K .stable INR at 1.6 today 8- Possible dementia ; head CT with no acute etiology . B12 , TSH NL RPR , HIV neg f/u with neuro as out pt 9- LE edema , could be due to hypoalbunemia , echo pending HLOC SCDS
--- NOTE | 2018-06-29 14:39 | PN ---
Progress Note (short form) - Note Progress Note: GI: Enema not given this morning at 6 AM on 4S as ordered and was then transferred promptly to 8W prior to administration of the enema. this led to Ms. Knox's initial time slot for her procedures to be taken by ongoinf procedures. Given how late in the afternoon it is and that procedures are still ongoing in endoscopy, I discussed the situation with Ms. Knox and will be moving the case to 8 AM tomorrow morning. She refuses a bowel prep. I explained despite having copious diarrhea, stool can still be retained and obscure my view of the colon, necessitating a repeat procedure with bowel prep. She stated that she understood For now: Clears Tap water enema in AM NPO after midnight Needs further stool testing as previously ordered Redosed vitamin K 10mg SC given persistent elevated INR Problem List - Problems (1) Chronic diarrhea Code(s): K52.9 - NONINFECTIVE GASTROENTERITIS AND COLITIS, UNSPECIFIED (2) Microcytic anemia Code(s): D50.9 - IRON DEFICIENCY ANEMIA, UNSPECIFIED
[2018-06-29] MEDS: oxyCODONE HCL 5 MG TABLET PO PRN (16:31)
--- NOTE | 2018-06-29 16:40 | PN ---
Progress Note (short form) - Note Progress Note: continues with diarrhea ambulating intermittent fevers Vital Signs Period Temp Pulse Resp BP Sys/Funes Pulse Ox Last 24 Hr 98.8 F-101.4 F 86-98 18-20 111-137/55-69 97-97 cor-rrr lungs clear abd soft, reports diffuse discomfort to palpation ext no edema CBC, BMP 06/29/18 06:30 06/29/18 06:30 Microbiology 06/28/18 03:30 Stool Gram Stain - Final 06/25/18 13:12 Blood - Peripheral Venous Blood Culture - Preliminary NO GROWTH OBTAINED AFTER 96 HOURS, INCUBATION TO CONTINUE FOR 1 DAYS. 06/25/18 13:12 Blood - Peripheral Venous Blood Culture - Preliminary NO GROWTH OBTAINED AFTER 96 HOURS, INCUBATION TO CONTINUE FOR 1 DAYS. 06/27/18 09:45 Blood - Peripheral Venous Blood Culture - Preliminary NO GROWTH OBTAINED AFTER 48 HOURS, INCUBATION TO CONTINUE FOR 3 DAYS. 06/27/18 08:57 Blood - Peripheral Venous Blood Culture - Preliminary NO GROWTH OBTAINED AFTER 48 HOURS, INCUBATION TO CONTINUE FOR 3 DAYS. 06/25/18 12:56 Stool Salmonella/Shigella Culture - Final NO GROWTH OF SALMONELLA OR SHIGELLA SPECIES OBTAINED 06/25/18 12:56 Stool Campylobacter Culture - Final NO GROWTH OF CAMPYLOBACTER SPECIES OBTAINED 06/25/18 12:56 Stool Yersinia Culture - Final NO GROWTH OF YERSINIA SPECIES OBTAINED 06/25/18 12:56 Stool Vibrio Culture - Final NO GROWTH OF VIBRIO SPECIES OBTAINED 06/25/18 12:56 Stool Escherichia coli 0157 Culture - Final NO GROWTH OF E COLI 0157 OBTAINED 06/25/18 18:00 Urine - Urine - Catheterized Urine Culture - Final NO GROWTH OBTAINED 06/25/18 19:38 Stool Gram Stain - Final 06/25/18 19:38 Stool Clostridium difficile Antigen (MISTI) - Final 06/25/18 19:38 Stool Clostridium difficile Toxin Assay - Final HIV negative a/p colitis anemia ELLA wt loss diabetes agree with repeat cultures stool ova and parasites ordered continue rocephin/flagyl day #4 ella resolved leukocytosis trending down for colonoscopy tomorrow
--- NOTE | 2018-06-29 16:47 | ECHO ---
Name: JULIEN GATES Exam:Adult Echocardiogram Study Date: 06/29/2018 11:32 AM Age: 58 yrs Reason For Study: LE EDEMA Height: 63 in Weight: 187 lb BSA: 1.9 m2 MMode/2D Measurements & Calculations IVSd: 1.0 cm Ao root diam: 2.6 cm LVIDd: 4.4 cm LA dimension: 3.1 cm LVIDs: 2.4 cm LVPWd: 1.1 cm EDV(Teich): 86.2 ml ESV(Teich): 20.9 ml Doppler Measurements & Calculations MV E max robert: 93.1 cm/sec TR max robert: 240.3 cm/sec MV A max robert: 89.7 cm/sec TR max P.1 mmHg MV E/A: 1.0 MV dec time: 0.25 sec Med Peak E' Robert: 10.0 cm/sec Med E/e': 9.3 Lat Peak E' Robert: 10.7 cm/sec Lat E/e': 8.7 Procedure Technically limited study. Left Ventricle The left ventricle is normal in size. Left ventricular systolic function is normal. Ejection Fraction = 65- 70%. No regional wall motion abnormalities noted. Right Ventricle The right ventricle is normal size. The right ventricular systolic function is normal. Atria The left atrial size is normal. Right atrial size is normal. Mitral Valve The mitral valve is normal in structure and function. There is no mitral regurgitation noted. Tricuspid Valve The tricuspid valve is normal in structure and function. There is mild tricuspid regurgitation. Pulmo nary artery systolic pressure is at least 26 mmHg assuming RA pressure of 3 mmHg. Aortic Valve The aortic valve is normal in structure and function. No aortic regurgitation is present. Pulmonic Valve The pulmonic valve is not well visualized. Great Vessels The aortic root is normal size. Pericardium/Pleura There is no pericardial effusion. Interpretation Summary Technically limited study The left ventricle is normal in size. Left ventricular systolic function is normal. No regional wall motion abnormalities noted. Ejection Fraction = 65-70%. The right ventricular systolic function is normal. The left atrial size is normal. Right atrial size is normal. There is mild tricuspid regurgitation. Pulmonary artery systolic pressure is at least 26 mmHg assuming RA pressure of 3 mmHg There is no pericardial effusion. Previous study is not available for comparison Brian Quiroz MD 06/29/2018 04:46 PM
[2018-06-29] MEDS ORDERED: cefTRIAXone SODIUM 1 GM VIAL ONE (20:33)
[2018-06-29] MEDS ORDERED: DEXTROSE 5%-WATER - 50 ML IVPB ONE (20:34)
[2018-06-29] MEDS: CEFTRIAXONE 1 GM in DEXTROSE 5%-WATER - 50 ML IVPB SCH (20:38)
[2018-06-29] MEDS ORDERED: MELATONIN 5 MG TABLETS PO SCH (22:00)
[2018-06-29] MEDS ORDERED: diphenhydrAMINE HCL 25 MG CAPSULE (FP) PO ONE (23:45)
[2018-06-30 00:12] LABS: GLIADIN ANTIBODY IGA 2 units (0-19); GLIADIN ANTIBODY IGG 2 units (0-19); TRANSGLUTAMINASE IGG < 2 U/mL (0-5)
[2018-06-30] MEDS: oxyCODONE HCL 5 MG TABLET PO PRN ×2 (01:18→14:20)
[2018-06-30] MEDS: INSULIN SLIDING SCALE (NOVOLOG) 1 VIAL SQ SCH ×3 (06:06→16:52)
[2018-06-30] MEDS: ACETAMINOPHEN 325 MG TABLET (FP) PO SCH ×3 (06:38→21:52)
[2018-06-30 07:26] LABS: BASO % 0.3 % (0-2.0); EOS % 1.2 % (0-4.5); HEMATOCRIT 23.8 % (32.4-45.2); HEMOGLOBIN 7.7 GM/dL (10.7-15.3); LYMPH % 15.4 % (8-40); MCH 22.9 pg (25.7-33.7); MCHC 32.5 g/dl (32.0-36.0); MEAN CELL VOLUME 70.7 fl (80-96); MEAN PLT VOLUME 7.1 fl (7.5-11.1); MONO % 12.1 % (3.8-10.2); PLATELET COUNT 483 K/MM3 (134-434); RBC 3.37 M/mm3 (3.60-5.2); RDW 24.3 % (11.6-15.6); WHITE BLOOD COUNT 16.2 K/mm3 (4.0-10.0)
[2018-06-30 07:36] LABS: INR 1.47 (0.83-1.09); PROTHROMBIN TIME (PATIENT) 16.6 SEC (9.7-13.0)
[2018-06-30] MEDS ORDERED: PROPOFOL 20 ML ONE ×7 (07:54→08:58)
[2018-06-30] MEDS ORDERED: LIDOCAINE HCL/PF 2% SDV 5ML VIAL ONE (07:54)
[2018-06-30 07:58] LABS: ANION GAP 9 (8-16); BLOOD UREA NITROGEN 6 mg/dL (7-18); CALCIUM 7.4 mg/dL (8.5-10.1); CHLORIDE 106 mmol/L (98-107); CO2 23 mmol/L (21-32); GLUCOSE,RANDOM 195 mg/dL (74-106); POTASSIUM 3.6 mmol/L (3.5-5.1); SODIUM 138 mmol/L (136-145)
[2018-06-30 07:59] LABS: CREATININE 0.5 mg/dL (0.55-1.02)
--- NOTE | 2018-06-30 09:44 | PN ---
Progress Note (short form) - Note Progress Note: EGD/Colon complete. Report left in procedural section of physical chart and to be scanned into [email or web address] Problem List - Problems (1) Chronic diarrhea Code(s): K52.9 - NONINFECTIVE GASTROENTERITIS AND COLITIS, UNSPECIFIED (2) Microcytic anemia Code(s): D50.9 - IRON DEFICIENCY ANEMIA, UNSPECIFIED
[2018-06-30] MEDS: SODIUM CHLORIDE 1,000 ML IV SCH ×2 (10:20→16:40)
[2018-06-30] MEDS: NYSTATIN 100,000 UNIT/GM TOPICAL CREAM 15 GM TUBE TP SCH ×2 (10:45→21:53)
[2018-06-30] MEDS: PANTOPRAZOLE 40 MG TABLET (FP) PO SCH (10:45)
[2018-06-30 11:14] LABS: ANISOCYTOSIS 2+; PLATELET ESTIMATE INCREASED
[2018-06-30] MEDS ORDERED: INSULIN (NOVOLOG) ASPART 100 UNITS/ML 10ML VIAL ONE (11:52)
--- NOTE | 2018-06-30 11:59 | PN ---
Teaching Attending Note Name of Resident: Radha Kwon ATTENDING PHYSICIAN STATEMENT I saw and evaluated the patient. I reviewed the resident's note and discussed the case with the resident. I agree with the resident's findings and plan as documented. SUBJECTIVE: No fever or chills , minimal Abd pain. reports fever. had EGD, [place] today OBJECTIVE: NAD. Cv: RRR Lungs: CTAB Ext: 2+ pitting edema , TTP on R calf Abd: soft,Nl BS, minimal TTP in all quadrants A/P : 58 y/o lady with h/o HTN, Dm , anemia, H/o gastric ulcers and polyps , gastric bypass sx, IBS, chronic diarrhea, and opioid dependence who presented with fatigue. she was found to have ELLA, severe anemia and acidosis 1- Worsening chronic microcytic anemia, s/p 2 units of RBC .Hb trending down slowly - EGD and colo with ulcers in upper and lower GI tract. ? Adamaris- Young VS due to NSAIDs , was on diclofenac at home - follow gastrin level to r/o Adamaris-young syndrome - follow Bx to r/o IBD - Hb electropheresis pending - start PPI 2- ELLA : resolved. DC IVF. LE edema is worse 3- Non AG Acidosis : due to bicarb loss through GI tract. resolved 4- Leukocytosis and fever:leukocytosis is stable despite Abx---> inflamatory . stool cx and blood cx neg. - cont ceftriaxone and flagyl. day 5 - will d/w ID 5-Diarrhea: no clear etiology yet, Adamaris Young is in DDX . endomysial Abs , TTG, and anti-gliadine Abs areneg. - follow Gastrin level. 6- DM: A1c 6.9 . on 3 oral agents and HS insulin at home., doubt she is taking all this. - cont SSI - At dc will need one oral agent 7- Elevated INR: likely nutritional def. - s/p 1 dose of Vit K 8- Possible dementia ; head CT with no acute etiology . B12 , TSH NL RPR , HIV neg f/u with neuro as out pt 9- LE edema , echo with nL EF. -dc IVF - checl US or RLE due to tender calf HLOC SCDS
--- NOTE | 2018-06-30 13:49 | PN ---
Physical Exam: SUBJECTIVE: Patient is a 58 y/o female with a history of IDDM, anemia, HTN, gastric ulcers, gastric bypass, IBS, chronic diarrhea who is here for anemia, colitis, and leukocytosis. She states she still feels feverish and overnight had a TMAX of 100.6. Endoscopy this morning showed multiple upper GI and lower GI ulcers. Patient continuing to have diarrhea. OBJECTIVE: Vital Signs Period Temp Pulse Resp BP Sys/Funes Pulse Ox Last 24 Hr 98.7 F-100.6 F 82-109 11-20 122-153/59-80 95-100 GENERAL: The patient is awake, alert, and fully oriented, in no acute distress. HEAD: Normal with no signs of trauma. EYES: PERRL, extraocular movements intact LUNGS: Breath sounds equal, clear to auscultation bilaterally HEART: Regular rate and rhythm, ABDOMEN: Soft, diffusely tender to palpation, slightly distended EXTREMITIES: warm, well-perfused, R Lextremity edema PSYCH: Normal mood, normal affect. SKIN: Warm, dry, normal turgor, no rashes or lesions noted Laboratory Results - last 24 hr 06/27/18 06/28/18 06/29/18 06:00 15:30 06:30 WBC RBC Hgb Hct MCV MCH MCHC RDW Plt Count MPV Absolute Neuts (auto) Neutrophils % Neutrophils % (Manual) Band Neutrophils % Lymphocytes % Lymphocytes % (Manual) Monocytes % Monocytes % (Manual) Eosinophils % Eosinophils % (Manual) Basophils % Basophils % (Manual) Myelocytes % (Man) Promyelocytes % (Man) Blast Cells % (Manual) Nucleated RBC % Metamyelocytes Hypochromia Platelet Estimate Polychromasia Anisocytosis PT with INR INR Sodium Potassium Chloride Carbon Dioxide Anion Gap BUN Creatinine Creat Clearance w eGFR POC Glucometer Random Glucose Calcium Stool O & P Wet [place] Cancelled IgA 185 Endomysial IgA Ab Negative Tiss Transglutamin IgG < 2 Tiss Transglutamin IgA <2 Anti-Gliadin IgG Ab 2 Anti-Gliadin IgA Ab 2 Hep B Core IgM Ab Negative O & P Permanent Slide Cancelled 06/29/18 06/29/18 06/30/18 12:56 17:59 06:05 WBC RBC Hgb Hct MCV MCH MCHC RDW Plt Count MPV Absolute Neuts (auto) Neutrophils % Neutrophils % (Manual) Band Neutrophils % Lymphocytes % Lymphocytes % (Manual) Monocytes % Monocytes % (Manual) Eosinophils % Eosinophils % (Manual) Basophils % Basophils % (Manual) Myelocytes % (Man) Promyelocytes % (Man) Blast Cells % (Manual) Nucleated RBC % Metamyelocytes Hypochromia Platelet Estimate Polychromasia Anisocytosis PT with INR INR Sodium Potassium Chloride Carbon Dioxide Anion Gap BUN Creatinine Creat Clearance w eGFR POC Glucometer 225 379 213 Random Glucose Calcium Stool O & P Wet Mount IgA Endomysial IgA Ab Tiss Transglutamin IgG Tiss Transglutamin IgA Anti-Gliadin IgG Ab Anti-Gliadin IgA Ab Hep B Core IgM Ab O & P Permanent Slide 06/30/18 06/30/18 06/30/18 06:30 06:30 06:30 WBC 16.2 H RBC 3.37 L Hgb 7.7 L Hct 23.8 L MCV 70.7 L MCH 22.9 L MCHC 32.5 RDW 24.3 H Plt Count 483 H MPV 7.1 L Absolute Neuts (auto) 11.5 Neutrophils % 71.0 Neutrophils % (Manual) 65.5 Band Neutrophils % 0.9 Lymphocytes % 15.4 D Lymphocytes % (Manual) 20.3 D Monocytes % 12.1 H Monocytes % (Manual) 12 H Eosinophils % 1.2 Eosinophils % (Manual) 0.0 D Basophils % 0.3 Basophils % (Manual) 0.0 Myelocytes % (Man) 0 D Promyelocytes % (Man) 0 Blast Cells % (Manual) 0 Nucleated RBC % 0 Metamyelocytes 1 D Hypochromia 1+ Platelet Estimate Increased Polychromasia 1+ Anisocytosis 2+ PT with INR 16.60 H* INR 1.47 Sodium 138 Potassium 3.6 Chloride 106 Carbon Dioxide 23 Anion Gap 9 BUN 6 L Creatinine 0.5 L Creat Clearance w eGFR > 60 POC Glucometer Random Glucose 195 H Calcium 7.4 L Stool O & P Wet Mount IgA Endomysial IgA Ab Tiss Transglutamin IgG Tiss Transglutamin IgA Anti-Gliadin IgG Ab Anti-Gliadin IgA Ab Hep B Core IgM Ab O & P Permanent Slide 06/30/18 06/30/18 08:50 11:51 WBC RBC Hgb Hct MCV MCH MCHC RDW Plt Count MPV Absolute Neuts (auto) Neutrophils % Neutrophils % (Manual) Band Neutrophils % Lymphocytes % Lymphocytes % (Manual) Monocytes % Monocytes % (Manual) Eosinophils % Eosinophils % (Manual) Basophils % Basophils % (Manual) Myelocytes % (Man) Promyelocytes % (Man) Blast Cells % (Manual) Nucleated RBC % Metamyelocytes Hypochromia Platelet Estimate Polychromasia Anisocytosis PT with INR INR Sodium Potassium Chloride Carbon Dioxide Anion Gap BUN Creatinine Creat Clearance w eGFR POC Glucometer 278 Random Glucose Calcium Stool O & P Wet [place] Cancelled IgA Endomysial IgA Ab Tiss Transglutamin IgG Tiss Transglutamin IgA Anti-Gliadin IgG Ab Anti-Gliadin IgA Ab Hep B Core IgM Ab O & P Permanent Slide Cancelled Active Medications Generic Name Dose Route Start Last Admin Trade Name Freq PRN Reason Stop Dose Admin Acetaminophen 325 mg 06/30/18 10:00 06/30/18 10:45 Tylenol - PO 325 mg BID YAMILKA Administration Heparin Sodium (Porcine) 5,000 unit 06/30/18 14:00 Heparin - SQ TID YAMILKA Ceftriaxone Sodium 1 gm/ 50 mls @ 100 mls/hr 06/30/18 20:30 Dextrose IVPB DAILY@2030 YAMILKA Metronidazole 500 mg in 100 mls @ 100 mls/hr 06/30/18 10:00 06/30/18 11:54 Flagyl 500mg Premixed Ivpb - IVPB 100 mls/hr Q8H-IV YAMILKA Administration Insulin Aspart 1 vial 06/27/18 07:00 06/30/18 11:54 Novolog Vial Sliding Scale - SQ 6 unit TIDAC YAMILKA Administration Protocol Nystatin 1 applic 06/28/18 22:00 06/30/18 10:45 Mycostatin Cream - TP 1 applic BID YAMILKA Administration Oxycodone HCl 10 mg 06/27/18 11:57 06/30/18 01:18 Roxicodone - PO 10 mg BID PRN Administration PAIN LEVEL 6-10 Pantoprazole Sodium 40 mg 06/27/18 13:30 06/30/18 10:45 Protonix - PO 40 mg DAILY YAMILKA Administration ASSESSMENT/PLAN: Patient is a 58 y/o female with a history of IDDM, anemia, HTN, gastric ulcers, gastric bypass, IBS, chronic diarrhea who is here for anemia, colitis, and leukocytosis. Endoscopy completed today, showed gastric, small bowel, and colon ulcers. #anemia - s/p one unit PRBC, current HGB 7.7, continue to trend down - EGD and Colonoscopy: mild ulceration in stomach, ulceration in small bowel and colon - hold ASA - iron studies: iron: 21(L), TIBC: 265 , Iron saturation: 8 (L), transferrin : 207, ferritin: 44 - Vit b12 793, folate: 18(H) - f/u peripheral smear and HgB electrophoresis - f/u fecal occult blood #leukocytosis - WBC 16.7 - Ceftriaxone 1gm (day 5) and Metronidazole 500 mg q 8h (day 5) - febrile over night TMAX: 100.6 - blood cx, urine cx- negative - c diff negative - f/u hepatitis pannel, immunologic labs - ID consult Dr. Trejo #colitis - Abd CT: mild continuos concentric wall thickening along sigmoid and descending colon mild concentric wall thickening involving distal small bowel loop with right lower pelvis may be basis of acute or chronic enteroclotitis - abd Xry: suggestive of enterocolitis, could be SBO or ileus - KUB: dilated bowel loops - stool cx pending #ELLA: resolved - BUN/ Cr stable #LE edmea - echo: function normal, mild tricuspid regurg, ejection fraction 65-70 - f/u LE doppler #possible dementia -head CT: no acute pathology #DM - SS for now - A1C: 6.9 - hold home meds for now #thrush - continue nystatin #chronic pain -oxycodone 10 mg po prn FEN - full liquid diet Dispo: f/u with Dr. Sanon Visit type - Emergency Visit Emergency Visit: No - New Patient This patient is new to me today: No - Critical Care Critical Care patient: No
[2018-06-30] MEDS ORDERED: HEPARIN NA (PORCINE) 5,000 UNITS/ML 1ML VIAL SQ SCH (14:00)
[2018-06-30 14:16] LABS: HGB SOLUBILITY Negative (Negative); Hgb A 98.2 % (96.4-98.8); Hgb C 0 % (0.0); Hgb F 0 % (0.0-2.0); Hgb S 0 % (0.0)
--- NOTE | 2018-06-30 14:49 | PN ---
Progress Note (short form) - Note Progress Note: continues with diarrhea ambulating endoscopy with colitis/ulcers- ?ischemic alert, feeling better Vital Signs Period Temp Pulse Resp BP Sys/Funes Pulse Ox Last 24 Hr 98.7 F-100.6 F 82-109 11-20 111-153/51-80 95-100 cor-rrr lungs clear abd soft,nt ext +swelling RLE CBC, BMP 06/30/18 06:30 06/30/18 06:30 Microbiology 06/25/18 13:12 Blood - Peripheral Venous Blood Culture - Final NO GROWTH AFTER 5 DAYS INCUBATION 06/25/18 13:12 Blood - Peripheral Venous Blood Culture - Final NO GROWTH AFTER 5 DAYS INCUBATION 06/27/18 09:45 Blood - Peripheral Venous Blood Culture - Preliminary NO GROWTH OBTAINED AFTER 72 HOURS, INCUBATION TO CONTINUE FOR 2 DAYS. 06/30/18 09:11 Stool AFB Smear Concentration - Preliminary 06/30/18 09:11 Stool Mycobacterial Culture - Preliminary 06/27/18 08:57 Blood - Peripheral Venous Blood Culture - Preliminary NO GROWTH OBTAINED AFTER 72 HOURS, INCUBATION TO CONTINUE FOR 2 DAYS. 06/28/18 03:30 Stool Gram Stain - Final 06/25/18 12:56 Stool Salmonella/Shigella Culture - Final NO GROWTH OF SALMONELLA OR SHIGELLA SPECIES OBTAINED 06/25/18 12:56 Stool Campylobacter Culture - Final NO GROWTH OF CAMPYLOBACTER SPECIES OBTAINED 06/25/18 12:56 Stool Yersinia Culture - Final NO GROWTH OF YERSINIA SPECIES OBTAINED 06/25/18 12:56 Stool Vibrio Culture - Final NO GROWTH OF VIBRIO SPECIES OBTAINED 06/25/18 12:56 Stool Escherichia coli 0157 Culture - Final NO GROWTH OF E COLI 0157 OBTAINED 06/25/18 18:00 Urine - Urine - Catheterized Urine Culture - Final NO GROWTH OBTAINED 06/25/18 19:38 Stool Gram Stain - Final 06/25/18 19:38 Stool Clostridium difficile Antigen (MISTI) - Final 06/25/18 19:38 Stool Clostridium difficile Toxin Assay - Final HIV negative a/p colitis anemia ELLA wt loss diabetes continue rocephin/flagyl f/ biopsies f/u duplex of the RLE r/o dvt
[2018-06-30] MEDS ORDERED: PT OWN MED DRAWER 7, Y5N ONE (17:23)
[2018-06-30] MEDS ORDERED: cefTRIAXone SODIUM 1 GM VIAL ONE (20:57)
[2018-06-30] MEDS ORDERED: DEXTROSE 5%-WATER - 50 ML IVPB ONE (20:58)
[2018-06-30] MEDS: CEFTRIAXONE 1 GM in DEXTROSE 5%-WATER - 50 ML IVPB SCH (20:59)
[2018-06-30] MEDS ORDERED: HEPARIN NA (PORCINE) 5,000 UNITS/ML 1ML VIAL IVPUSH ONE (21:15)
[2018-06-30] MEDS: HEPARIN - 25,000 UNIT in SODIUM CHLORIDE 495 ML IV SCH (23:51)
[2018-07-01] MEDS: oxyCODONE HCL 5 MG TABLET PO PRN ×3 (00:06→22:45)
--- NOTE | 2018-07-01 00:08 | HOSP ---
Physical Examination Vital Signs: Vital Signs Temperature 99.7 F H 06/30/18 23:38 Pulse Rate 96 H 06/30/18 23:38 Respiratory Rate 18 06/30/18 23:38 Blood Pressure 142/62 06/30/18 23:38 O2 Sat by Pulse Oximetry (%) 99 06/30/18 11:00 Labs: CBC, BMP 06/30/18 06:30 06/30/18 06:30 Hospitalist Encounter Assessment: Vascular study of LE results reviewed. Patient had R leg DVT. She is anemic (hgb 7.7). Heparin ggt started at 18u/kg/hr. Will monitor. Consulted with Dr. Sanon.
[2018-07-01] MEDS: INSULIN SLIDING SCALE (NOVOLOG) 1 VIAL SQ SCH ×3 (06:18→19:01)
[2018-07-01 07:02] LABS: HEMATOCRIT 23.2 % (32.4-45.2); HEMOGLOBIN 7.4 GM/dL (10.7-15.3); MCH 22.6 pg (25.7-33.7); MCHC 31.6 g/dl (32.0-36.0); MEAN CELL VOLUME 71.3 fl (80-96); PLATELET COUNT 499 K/MM3 (134-434); RBC 3.26 M/mm3 (3.60-5.2); RDW 24.6 % (11.6-15.6); WHITE BLOOD COUNT 16.4 K/mm3 (4.0-10.0)
[2018-07-01 07:31] LABS: ANION GAP 11 (8-16); BLOOD UREA NITROGEN 4 mg/dL (7-18); CALCIUM 7.3 mg/dL (8.5-10.1); CHLORIDE 111 mmol/L (98-107); CO2 23 mmol/L (21-32); CREATININE 0.5 mg/dL (0.55-1.02); GLUCOSE,RANDOM 202 mg/dL (74-106); POTASSIUM 3.4 mmol/L (3.5-5.1); SODIUM 145 mmol/L (136-145)
--- NOTE | 2018-07-01 08:20 | PN ---
Physical Exam: SUBJECTIVE: Patient is a 58 y/o female with a history of IDDM, anemia, HTN, gastric ulcers, gastric bypass, IBS, chronic diarrhea who is here for anemia, colitis, and leukocytosis. She reports she is continuing to have diarrhea. She has no new complaints. OBJECTIVE: Vital Signs Period Temp Pulse Resp BP Sys/Funes Pulse Ox Last 24 Hr 98.7 F-99.7 F 82-96 11-20 108-153/49-80 95-100 GENERAL: The patient is awake, alert, and fully oriented, in no acute distress. HEAD: Normal with no signs of trauma. EYES: PERRL, extraocular movements intact LUNGS: Breath sounds equal, clear to auscultation bilaterally HEART: Regular rate and rhythm, ABDOMEN: Soft, diffusely tender to palpation, slightly distended EXTREMITIES: warm, well-perfused, R Lextremity edema PSYCH: Normal mood, normal affect. SKIN: Warm, dry, normal turgor, no rashes or lesions noted Laboratory Results - last 24 hr 06/27/18 06/28/18 06/30/18 09:45 15:30 06:30 WBC RBC Hgb Hct MCV MCH MCHC RDW Plt Count MPV Neutrophils % (Manual) 65.5 Band Neutrophils % 0.9 Lymphocytes % (Manual) 20.3 D Monocytes % (Manual) 12 H Eosinophils % (Manual) 0.0 D Basophils % (Manual) 0.0 Myelocytes % (Man) 0 D Promyelocytes % (Man) 0 Blast Cells % (Manual) 0 Nucleated RBC % 0 Metamyelocytes 1 D Hypochromia 1+ Platelet Estimate Increased Polychromasia 1+ Anisocytosis 2+ Hemoglobin A 98.2 Hemoglobin A2 1.8 Hemoglobin C 0 Hemoglobin S 0 Variant Hemoglobin 0.0 Hemoglobin Interpret Maternal Rh 0 Hemoglobin Solubility Negative PTT (Actin FS) Sodium Potassium Chloride Carbon Dioxide Anion Gap BUN Creatinine Creat Clearance w eGFR POC Glucometer Random Glucose Calcium Stool O & P Wet Mount Cancelled O & P Permanent Slide Cancelled 06/30/18 06/30/18 06/30/18 06:30 08:50 11:51 WBC RBC Hgb Hct MCV MCH MCHC RDW Plt Count MPV Neutrophils % (Manual) Band Neutrophils % Lymphocytes % (Manual) Monocytes % (Manual) Eosinophils % (Manual) Basophils % (Manual) Myelocytes % (Man) Promyelocytes % (Man) Blast Cells % (Manual) Nucleated RBC % Metamyelocytes Hypochromia Platelet Estimate Polychromasia Anisocytosis Hemoglobin A Hemoglobin A2 Hemoglobin C Hemoglobin S Variant Hemoglobin Hemoglobin Interpret Maternal Rh Hemoglobin Solubility PTT (Actin FS) Sodium 138 Potassium 3.6 Chloride 106 Carbon Dioxide 23 Anion Gap 9 BUN 6 L Creatinine 0.5 L Creat Clearance w eGFR > 60 POC Glucometer 278 Random Glucose 195 H Calcium 7.4 L Stool O & P Wet [place] Cancelled O & P Permanent Slide Cancelled 06/30/18 07/01/18 07/01/18 16:50 06:17 06:40 WBC 16.4 H RBC 3.26 L Hgb 7.4 L Hct 23.2 L MCV 71.3 L MCH 22.6 L MCHC 31.6 L RDW 24.6 H Plt Count 499 H MPV 7.0 L Neutrophils % (Manual) Band Neutrophils % Lymphocytes % (Manual) Monocytes % (Manual) Eosinophils % (Manual) Basophils % (Manual) Myelocytes % (Man) Promyelocytes % (Man) Blast Cells % (Manual) Nucleated RBC % Metamyelocytes Hypochromia Platelet Estimate Polychromasia Anisocytosis Hemoglobin A Hemoglobin A2 Hemoglobin C Hemoglobin S Variant Hemoglobin Hemoglobin Interpret Maternal Rh Hemoglobin Solubility PTT (Actin FS) Sodium Potassium Chloride Carbon Dioxide Anion Gap BUN Creatinine Creat Clearance w eGFR POC Glucometer 264 218 Random Glucose Calcium Stool O & P Wet Mount O & P Permanent Slide 07/01/18 07/01/18 06:40 06:40 WBC RBC Hgb Hct MCV MCH MCHC RDW Plt Count MPV Neutrophils % (Manual) Band Neutrophils % Lymphocytes % (Manual) Monocytes % (Manual) Eosinophils % (Manual) Basophils % (Manual) Myelocytes % (Man) Promyelocytes % (Man) Blast Cells % (Manual) Nucleated RBC % Metamyelocytes Hypochromia Platelet Estimate Polychromasia Anisocytosis Hemoglobin A Hemoglobin A2 Hemoglobin C Hemoglobin S Variant Hemoglobin Hemoglobin Interpret Maternal Rh Hemoglobin Solubility PTT (Actin FS) 28.9 Sodium 145 Potassium 3.4 L Chloride 111 H Carbon Dioxide 23 Anion Gap 11 BUN 4 L Creatinine 0.5 L Creat Clearance w eGFR > 60 POC Glucometer Random Glucose 202 H Calcium 7.3 L Stool O & P Wet [place] O & P Permanent Slide Active Medications Generic Name Dose Route Start Last Admin Trade Name Freq PRN Reason Stop Dose Admin Acetaminophen 325 mg 06/30/18 10:00 06/30/18 21:52 Tylenol - PO 325 mg BID YAMILKA Administration Ceftriaxone Sodium 1 gm/ 50 mls @ 100 mls/hr 06/30/18 20:30 06/30/18 20:59 Dextrose IVPB 100 mls/hr DAILY@2030 YAMILKA Administration Metronidazole 500 mg in 100 mls @ 100 mls/hr 06/30/18 10:00 07/01/18 01:40 Flagyl 500mg Premixed Ivpb - IVPB 100 mls/hr Q8H-IV YAMILKA Administration Sodium Chloride 1,000 mls @ 75 mls/hr 06/30/18 16:30 06/30/18 16:40 Normal Saline - IV 75 mls/hr ASDIR YAMILKA Administration Heparin Sodium (Porcine) 25, 500 mls @ 30.56 mls/hr 06/30/18 21:15 06/30/18 23:51 000 unit/ Sodium Chloride IV 18 unit/kg/hr TITR YAMILKA 30.56 mls/hr Administration Protocol 18 UNIT/KG/HR Insulin Aspart 1 vial 06/27/18 07:00 07/01/18 06:18 Novolog Vial Sliding Scale - SQ 4 unit TIDAC YAMILKA Administration Protocol Nystatin 1 applic 06/28/18 22:00 06/30/18 21:53 Mycostatin Cream - TP 1 applic BID YAMILKA Administration Oxycodone HCl 10 mg 06/27/18 11:57 07/01/18 00:06 Roxicodone - PO 10 mg BID PRN Administration PAIN LEVEL 6-10 Pantoprazole Sodium 40 mg 06/27/18 13:30 06/30/18 10:45 Protonix - PO 40 mg DAILY YAMILKA Administration Potassium Chloride 40 meq 07/01/18 08:11 K-Dur - PO 07/01/18 08:12 ONCE ONE ASSESSMENT/PLAN: Patient is a 58 y/o female with a history of IDDM, anemia, HTN, gastric ulcers, gastric bypass, IBS, chronic diarrhea who is here for anemia, colitis, and leukocytosis. Endoscopy completed, showed gastric, small bowel, and colon ulcers. #anemia - s/p one unit PRBC, current HGB 7.4, continue to trend down - EGD and Colonoscopy: mild ulceration in stomach, ulceration in small bowel and colon - hold ASA - iron studies: iron: 21(L), TIBC: 265 , Iron saturation: 8 (L), transferrin : 207, ferritin: 44 - Vit b12 793, folate: 18(H) - f/u peripheral smear and HgB electrophoresis - fecal occult blood positive #leukocytosis - WBC 16.4 - Ceftriaxone 1gm (day 6) and Metronidazole 500 mg q 8h (day 6) - continue lactobaccilus - afebrile - blood cx, urine cx- negative - c diff negative - hepatitis panel and immunology panel negative - ID consult Dr. Trejo #colitis - Abd CT: mild continuos concentric wall thickening along sigmoid and descending colon mild concentric wall thickening involving distal small bowel loop with right lower pelvis may be basis of acute or chronic enteroclotitis - abd Xry: suggestive of enterocolitis, could be SBO or ileus - KUB: dilated bowel loops - stool cx negative - f/u gastrin level #RLE DVT - echo: function normal, mild tricuspid regurg, ejection fraction 65-70 - heparin ggt #ELLA: resolved - BUN/ Cr stable #possible dementia -head CT: no acute pathology #DM - SS for now - A1C: 6.9 - hold home meds for now #thrush - continue nystatin #chronic pain -oxycodone 10 mg po prn FEN - full liquid diet - NS @ 75 Dispo: f/u with Dr. Sanon Visit type - Emergency Visit Emergency Visit: No - New Patient This patient is new to me today: No - Critical Care Critical Care patient: No
[2018-07-01] MEDS ORDERED: POTASSIUM CHLORIDE TABS 20 MEQ TABLET.ER (FP) PO ONE (09:00)
[2018-07-01] MEDS ORDERED: PT OWN MED DRAWER 7, Y5N ONE (10:15)
[2018-07-01] MEDS: PANTOPRAZOLE 40 MG TABLET (FP) PO SCH (10:22)
[2018-07-01] MEDS: ACETAMINOPHEN 325 MG TABLET (FP) PO SCH ×2 (10:22→22:39)
[2018-07-01] MEDS: NYSTATIN 100,000 UNIT/GM TOPICAL CREAM 15 GM TUBE TP SCH ×2 (10:23→22:40)
[2018-07-01] MEDS: LACTOBACILLUS ACIDOPHILUS 1 TABLET PO SCH ×2 (11:49→22:39)
--- NOTE | 2018-07-01 15:08 | CONSULT ---
Consultation: REQUESTING PROVIDER: CONSULT REQUEST: We have been asked to medically evaluate this patient for ( hematology- oncology ). HISTORY OF PRESENT ILLNESS: 58F admitted for diarrhea. Found to have a microcytic anemia with Hgb of 5.9. received 2 units of blood and Hb went up to >9, Patient had positive stool for occult. Endoscopy and colonoscopy was done which shows ulcer at gastric bypass anastomosis and distal to it. While Pt was in hospital she was on bed rest for first two days. yesterday patient noticed a swelling in her right leg and duplex scan was done which shows DVT in R common femoral vein, femoral and greater saphenous vein. Patient was started on heparin drip yesterday and her haemoglobin is trending down and is getting another unit of blood. Denies chest pain, sob, palpitations, dizziness, oscar, hematochezia, hematemesis. Also has a history of lung nodules which her primary care is following and Patient states size is stable. Denies Nsaid, aspirin, morphine, ibuprofen, advil. Patient home med shows diclofenac but patient states she never took it. Patient denies trauma to leg, not on hormonal replacement therapy, no h/o cancer. Family history: brother was diagnosed with lower extremity DVT 10 years ago. Brother also has h/o leukemia follows doctor in [facility], Father because of [place] social : non smoker, non alcoholic. PSH: gastric bypass. PMH : IDDM, hypertension, hyperlipidemia, GERD, PHYSICAL EXAMINATION Vital Signs - 24 hr 06/30/18 06/30/18 07/01/18 21:00 23:38 07:44 Temperature 99.7 F H 99.6 F Pulse Rate 96 H 93 H Respiratory 18 18 Rate Blood Pressure 142/62 108/49 O2 Sat by Pulse 99 Oximetry (%) 07/01/18 07/01/18 08:55 14:51 Temperature 100 F H 98.0 F Pulse Rate 100 H 84 Respiratory 18 18 Rate Blood Pressure 127/67 116/70 O2 Sat by Pulse Oximetry (%) GENERAL: Awake, alert, and fully oriented, in no acute distress. HEAD: Normal with no signs of trauma. EYES: conjuctiva pallor, no icterus EARS, NOSE, THROAT: Moist mucous membranes. has denture upper and lower Axilla; left axillary lymphnode palpable. Breast; No mass palpable. LUNGS: Breath sounds equal, clear to auscultation bilaterally. No wheezes, and no crackles. No accessory muscle use. HEART: Regular rate and rhythm, normal S1 and S2 without murmur, rub or gallop. ABDOMEN: Soft, nontender, not distended, normoactive bowel sounds, no guarding, no rebound, no masses. UPPER EXTREMITIES: 2+ pulses, warm, well-perfused. No cyanosis. No clubbing. Cap refill <2 seconds. No peripheral edema. LOWER EXTREMITIES: warm, well-perfused. No calf tenderness. peripheral edema present right foot, calf tense to touch, PSYCHIATRIC: Cooperative. Good eye contact. SKIN: Warm, dry, Laboratory Results - last 24 hr 07/01/18 07/01/18 07/01/18 06:40 06:40 11:00 WBC RBC Hgb Hct MCV MCH MCHC RDW Plt Count MPV PTT (Actin FS) 28.9 Sodium 145 Potassium 3.4 L Chloride 111 H Carbon Dioxide 23 Anion Gap 11 BUN 4 L Creatinine 0.5 L Creat Clearance w eGFR > 60 POC Glucometer Random Glucose 202 H Calcium 7.3 L Blood Type O POSITIVE Antibody Screen Positive H Antibody Identification Anti-k Antigen Identification No Result Required. Crossmatch See Detail 07/01/18 11:43 WBC RBC Hgb Hct MCV MCH MCHC RDW Plt Count MPV PTT (Actin FS) Sodium Potassium Chloride Carbon Dioxide Anion Gap BUN Creatinine Creat Clearance w eGFR POC Glucometer 264 Random Glucose Calcium Blood Type Antibody Screen Antibody Identification Antigen Identification Crossmatch Active Medications Generic Name Dose Route Start Last Admin Trade Name Freq PRN Reason Stop Dose Admin Acetaminophen 325 mg 06/30/18 10:00 07/01/18 10:22 Tylenol - PO 325 mg BID YAMILKA Administration Ceftriaxone Sodium 1 gm/ 50 mls @ 100 mls/hr 06/30/18 20:30 06/30/18 20:59 Dextrose IVPB 100 mls/hr DAILY@2030 YAMILKA Administration Metronidazole 500 mg in 100 mls @ 100 mls/hr 06/30/18 10:00 07/01/18 10:23 Flagyl 500mg Premixed Ivpb - IVPB 100 mls/hr Q8H-IV YAMILKA Administration Sodium Chloride 1,000 mls @ 75 mls/hr 06/30/18 16:30 06/30/18 16:40 Normal Saline - IV 75 mls/hr ASDIR YAMILKA Administration Heparin Sodium (Porcine) 25, 500 mls @ 30.56 mls/hr 06/30/18 21:15 06/30/18 23:51 000 unit/ Sodium Chloride IV 18 unit/kg/hr TITR YAMILKA 30.56 mls/hr Administration Protocol 18 UNIT/KG/HR Insulin Aspart 1 vial 06/27/18 07:00 07/01/18 11:47 Novolog Vial Sliding Scale - SQ 6 unit TIDAC YAMILKA Administration Protocol Lactobacillus Acidophilus 1 tab 07/01/18 10:15 07/01/18 11:49 Bacid - PO 1 tab BID YAMILKA Administration Nystatin 1 applic 06/28/18 22:00 07/01/18 10:23 Mycostatin Cream - TP 1 applic BID YAMILKA Administration Oxycodone HCl 10 mg 06/27/18 11:57 07/01/18 10:31 Roxicodone - PO 10 mg BID PRN Administration PAIN LEVEL 6-10 Pantoprazole Sodium 40 mg 06/27/18 13:30 07/01/18 10:22 Protonix - PO 40 mg DAILY YAMILKA Administration colonoscopy/ endoscopy: ulcerated mucosa in sigmoid colon, distal descending colon, distal transverse colon, ulcer at gastric bypass anastmosi, multiple exeudative ulcers found in distal to gastro-enteric anastmosis ASSESSMENT/PLAN: DVT in right common femoral, femoral and saphenous vein Microcytic anemia likely from blood loss from ulcers. Supratheraputic inr, getting better. 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 Supratheraputic INR with elevated PT and normal ptt can be because of factor 7 deficiency. Which can occur because of Vit k deficiency. Deficiency of fat soluble vitamin is common after bypass surgery. Not sure about her nutrition. Patient has proximal DVT which can be provoked by colitis but malignancy cannot be ruled out. Patient is on heparin drip with fall in Hb and is receiving a blood transfusion. Consider IVC filter. Consider vascular surgery consult. Thrombophelia workup can be done outpatient. Try to get her chest X- Ray or CT scan report from her primary. continue with ppi monitor hemoglobin. B12 793, tsh 0.67, folate 18 Serum gastrin level pending. On ceftriaxone and flagyl for colitis. Follow biopsy report Dispo: We will continue to follow the patient. Thank you for this consultative opportunity. Visit type - Emergency Visit Emergency Visit: Yes ED Registration Date: 06/25/18 Care time: The patient presented to the Emergency Department on the above date and was hospitalized for further evaluation of their emergent condition. - New Patient This patient is new to me today: Yes Date on this admission: 07/01/18 - Critical Care Critical Care patient: No
--- NOTE | 2018-07-01 15:20 | PN ---
Teaching Attending Note Name of Resident: Radha Kwon ATTENDING PHYSICIAN STATEMENT I saw and evaluated the patient. I reviewed the resident's note and discussed the case with the resident. I agree with the resident's findings and plan as documented. SUBJECTIVE: Patient continues to have diarrhea OBJECTIVE: Vital Signs Temperature 98.0 F 07/01/18 14:51 Pulse Rate 84 07/01/18 14:51 Respiratory Rate 18 07/01/18 14:51 Blood Pressure 116/70 07/01/18 14:51 O2 Sat by Pulse Oximetry (%) 99 06/30/18 21:00 CBCD WBC 16.4 K/mm3 (4.0-10.0) H 07/01/18 06:40 RBC 3.26 M/mm3 (3.60-5.2) L 07/01/18 06:40 Hgb 7.4 GM/dL (10.7-15.3) L 07/01/18 06:40 Hct 23.2 % (32.4-45.2) L 07/01/18 06:40 MCV 71.3 fl (80-96) L 07/01/18 06:40 MCHC 31.6 g/dl (32.0-36.0) L 07/01/18 06:40 RDW 24.6 % (11.6-15.6) H 07/01/18 06:40 Plt Count 499 K/MM3 (134-434) H 07/01/18 06:40 MPV 7.0 fl (7.5-11.1) L 07/01/18 06:40 CMP Sodium 145 mmol/L (136-145) 07/01/18 06:40 Potassium 3.4 mmol/L (3.5-5.1) L 07/01/18 06:40 Chloride 111 mmol/L (98-107) H 07/01/18 06:40 Carbon Dioxide 23 mmol/L (21-32) 07/01/18 06:40 Anion Gap 11 (8-16) 07/01/18 06:40 BUN 4 mg/dL (7-18) L 07/01/18 06:40 Creatinine 0.5 mg/dL (0.55-1.02) L 07/01/18 06:40 Creat Clearance w eGFR > 60 (>60) 07/01/18 06:40 Random Glucose 202 mg/dL (74-106) H 07/01/18 06:40 Calcium 7.3 mg/dL (8.5-10.1) L 07/01/18 06:40 Total Bilirubin 0.4 mg/dL (0.2-1.0) 06/29/18 06:30 AST 5 U/L (15-37) L 06/29/18 06:30 ALT 9 U/L (12-78) L 06/29/18 06:30 Alkaline Phosphatase 64 U/L (45-117) 06/29/18 06:30 Total Protein 4.1 g/dl (6.4-8.2) L 06/29/18 06:30 Albumin 1.7 g/dl (3.4-5.0) L 06/29/18 06:30 CARDIAC ENZYMES Troponin I < 0.02 ng/ml (0.00-0.05) 06/25/18 13:12 Current Medications Generic Name Dose Route Start Last Admin Trade Name Freq PRN Reason Stop Dose Admin Acetaminophen 325 mg 06/30/18 10:00 07/01/18 10:22 Tylenol - PO 325 mg BID YAMILKA Administration Ceftriaxone Sodium 1 gm/ 50 mls @ 100 mls/hr 06/30/18 20:30 06/30/18 20:59 Dextrose IVPB 100 mls/hr DAILY@2030 YAMILKA Administration Metronidazole 500 mg in 100 mls @ 100 mls/hr 06/30/18 10:00 07/01/18 10:23 Flagyl 500mg Premixed Ivpb - IVPB 100 mls/hr Q8H-IV YAMILKA Administration Sodium Chloride 1,000 mls @ 75 mls/hr 06/30/18 16:30 06/30/18 16:40 Normal Saline - IV 75 mls/hr ASDIR YAMILKA Administration Heparin Sodium (Porcine) 25, 500 mls @ 30.56 mls/hr 06/30/18 21:15 06/30/18 23:51 000 unit/ Sodium Chloride IV 18 unit/kg/hr TITR YAMILKA 30.56 mls/hr Administration Protocol 18 UNIT/KG/HR Insulin Aspart 1 vial 06/27/18 07:00 07/01/18 11:47 Novolog Vial Sliding Scale - SQ 6 unit TIDAC YAMILKA Administration Protocol Lactobacillus Acidophilus 1 tab 07/01/18 10:15 07/01/18 11:49 Bacid - PO 1 tab BID YAMILKA Administration Nystatin 1 applic 06/28/18 22:00 07/01/18 10:23 Mycostatin Cream - TP 1 applic BID YAMILKA Administration Oxycodone HCl 10 mg 06/27/18 11:57 07/01/18 10:31 Roxicodone - PO 10 mg BID PRN Administration PAIN LEVEL 6-10 Pantoprazole Sodium 40 mg 06/27/18 13:30 07/01/18 10:22 Protonix - PO 40 mg DAILY YAMILKA Administration Home Medications Medication Instructions Recorded Glimepiride [Amaryl -] 4 mg PO BID 10/26/12 Lisinopril [Prinivil] 20 mg PO DAILY 10/26/12 Sitagliptin Phosphate [Januvia] 100 mg PO DAILY 10/26/12 metFORMIN HCL [Glucophage -] 850 mg PO TID 10/26/12 Cholecalciferol (Vitamin D3) 2,000 unit PO DAILY 07/14/14 [Vitamin D3] Fenofibrate Nanocrystallized 145 mg PO DAILY 07/14/14 [Tricor] Insulin Lispro [Humalog] 5 unit SQ AC 07/14/14 Multivitamins [Multivit ([facility] 1 tab PO DAILY 07/14/14 Formulary)] Acarbose [Precose -] 25 mg PO TID 06/25/18 Diclofenac Sodium 50 mg PO BID 06/25/18 Duloxetine HCl [Cymbalta] 30 mg PO DAILY 06/25/18 Oxycodone HCl/Acetaminophen 1 each PO PRN 06/25/18 [Endocet 10-325 mg Tablet] Omeprazole 20 mg PO DAILY 06/27/18 PE; per resident' note ASSESSMENT AND PLAN: Patient is a 58 y/o lady with h/o HTN, Dm , anemia, H/o gastric ulcers and polyps , gastric bypass sx, IBS, chronic diarrhea, and opoid dependence who presented with fatigue. she was found to have ELLA, severe anemia and acidosis #Acute Right LE DVT on Heparin , bridging with coumadin, as per GI , is ok to continue with Heparin #Acute Diarrhea: waiting for gastrin level r/o Adamaris Silva is in DDX , VIP . endomysial Abs, TTG, and anti-gliadine Abs are neg. follow Gastrin level. # Worsening microcytic anemia, s/p 2 units of RBC .trend Hb. EGD and colo with ulcers in upper and lower GI tract. r/o Adamaris- Silva VS due to NSAIDs , was on diclofenac at home folloe the Gastin level. On PPI # ELLA : resolved. DC IVF. LE edema is worse # Non AG Acidosis : due to bicarb loss through GI tract. resolved # Leukocytosis and fever:leukocytosis is stable despite Abx---> inflamatory . stool cx and blood cx neg. cont ceftriaxone and flagyl. day 6 will check with ID # DM: A1c 6.9 . on 3 oral agents and HS insulin at home., cont SSI ; At dc will need one oral agent # Possible dementia ; head CT with no acute etiology . B12 , TSH NL RPR , HIV neg ,f/u with neuro as out pt DVT Px: heparin/coumadin
--- NOTE | 2018-07-01 16:57 | PN ---
Teaching Attending Note Name of Resident: Nate Johnson ATTENDING PHYSICIAN STATEMENT I saw and evaluated the patient. I reviewed the resident's note and discussed the case with the resident. I agree with the resident's findings and plan as documented. SUBJECTIVE: 58 year old female presents with profound anemia , diarrhea x 3 months, leukoerythroblastic blood picture. Has received transfusion of packed cells to correct anemia. 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 This may be secondary to poor p.o. intake, occult liver disease, malabsorption from gastric bypass surgery or hypoxemia on presentation . Coagulation studies have improved with transfusion and correction of anemia. Underwent endoscopy and found to have ulcers near to and distal to gastric bypass anastomosis. On colonoscopy also found to have friable ulceration at 40- 50 cm. Biopsies pending. Developed extensive DVT of common femoral, femoral and saphenous vein. No family history of DVT Brother with leukemia History of lung nodules being monitored. OBJECTIVE: P.E positve HEENT- RICARDO, EOM intact Mildly enlarged tongue with decrease papillation. Upper dentures and edentulous lowers. No cervical , supraclavicular nodes. 2-3 cm soft moveable left axillary node No breast masses. Abdomen- soft- no masses. RLE firm tense from calf and extending to inguinal area. ASSESSMENT AND PLAN: Problem of GI bleeding with ulcer disease in the face of extensive femoral, common femoral and saphenous vein thrombosis. Would consider vascular consult for possible IVC filter. Await biopsies. Continue GI assessment. May need parenteral iron in view of bypass. May need thrombophilia work up Maintain heparin for now with careful monitoring of Hb/Hct.
--- NOTE | 2018-07-01 17:10 | PN ---
Progress Note (short form) - Note Progress Note: Case discussed with Dr. Bolanos No active bleeding diathesis. Will hold off on IVC for now. Monitor Hb/hct.
[2018-07-01] MEDS ORDERED: HEPARIN NA (PORCINE) 5,000 UNITS/ML 1ML VIAL IVPUSH ONE (18:09)
[2018-07-01] MEDS ORDERED: HEPARIN NA (PORCINE) 5,000 UNITS/ML 1ML VIAL IVPUSH PRN (18:09)
--- NOTE | 2018-07-01 18:27 | PN ---
GI Progress Note Subjective: No acute events Describes 4 loose but more formed BM's today Abdominal pain improved Being treated for RLE DVT She is drinking diet soda, [employer] coffee and has been down to the cafe - Objective Vital Signs: Vital Signs Temperature 97.6 F 07/01/18 18:21 Pulse Rate 97 H 07/01/18 18:21 Respiratory Rate 20 07/01/18 18:21 Blood Pressure 119/53 07/01/18 18:21 O2 Sat by Pulse Oximetry (%) 99 06/30/18 21:00 Constitutional: Calm Eyes: No: Sclera Icterus Cardiovascular: Yes: Regular Rate and Rhythm Respiratory: Yes: CTA Bilaterally Gastrointestinal Inspection: No: Distention ...Auscultate: Yes: Normoactive Bowel Sounds ...Palpate: Yes: Tenderness (Improved TTP left abdomen). No: Guarding, Tenderness, Rebound ...Percussion: No: Tympanitic Edema: No Edema: LLE: Trace, RLE: 2+ Neurological: Yes: Alert Labs: CBC, BMP 07/01/18 06:40 07/01/18 06:40 INR, PTT INR 1.47 (0.83-1.09) 06/30/18 06:30 Hepatic Panel Total Bilirubin 0.4 mg/dL (0.2-1.0) 06/29/18 06:30 AST 5 U/L (15-37) L 06/29/18 06:30 ALT 9 U/L (12-78) L 06/29/18 06:30 Alkaline Phosphatase 64 U/L (45-117) 06/29/18 06:30 Albumin 1.7 g/dl (3.4-5.0) L 06/29/18 06:30 Microbiology 06/30/18 09:11 Stool AFB Smear Concentration - Final 06/30/18 09:11 Stool Mycobacterial Culture - Preliminary 06/30/18 08:50 Stool O & P Wet [place] Pending Problem List - Problems (1) Colitis Assessment/Plan: The distribution and appearance of the colitis is suggestive of ischemic colitis. This may have been precipitated by hypovolemia / hypotension secondary to her diarrhea. She also had exudative ulcers in the proximal small bowel just distal to her gastroenteric anastamosis. She denies NSAID use despite diclofenac being on her medication list. An atypical presentation of Crohn's is not excluded as of yet and IBD is a thrombogenic state. There was no overt bleeding source noted on upper endoscopy or colonoscopy and H /H continues to dwindle. She could be oozing from biopsy sites however she describes no melenic BM's and overt rectal bleeding overnight. Protonix 40mg once daily Await pathology results Stool AFB / O&P pending IBD serologies ordered If continued clinical improvement, advance to low fat, diabetic, lactose free diet Monitor for active GI bleeding Heme following The more recent CT scan report from 06/28 actually appears to be the report from an AXR from 06/29. This will need to be clarified Code(s): K52.9 - NONINFECTIVE GASTROENTERITIS AND COLITIS, UNSPECIFIED (2) Microcytic anemia Code(s): D50.9 - IRON DEFICIENCY ANEMIA, UNSPECIFIED (3) Chronic diarrhea Code(s): K52.9 - NONINFECTIVE GASTROENTERITIS AND COLITIS, UNSPECIFIED
[2018-07-01] MEDS: HEPARIN - 25,000 UNIT in SODIUM CHLORIDE 495 ML IV SCH ×2 (18:59→22:45)
[2018-07-01] MEDS: SODIUM CHLORIDE 1,000 ML IV SCH (19:24)
[2018-07-01] MEDS ORDERED: cefTRIAXone SODIUM 1 GM VIAL ONE (20:34)
[2018-07-01] MEDS ORDERED: DEXTROSE 5%-WATER - 50 ML IVPB ONE (20:34)
[2018-07-01] MEDS: CEFTRIAXONE 1 GM in DEXTROSE 5%-WATER - 50 ML IVPB SCH (20:36)
[2018-07-01 20:40] LABS: HEMOGLOBIN 8.7 GM/dL (10.7-15.3); MCH 23.3 pg (25.7-33.7); MEAN CELL VOLUME 72.6 fl (80-96); MEAN PLT VOLUME 7.2 fl (7.5-11.1); PLATELET COUNT 586 K/MM3 (134-434); RBC 3.72 M/mm3 (3.60-5.2); RDW 24.4 % (11.6-15.6); WHITE BLOOD COUNT 19.6 K/mm3 (4.0-10.0)
[2018-07-01] MEDS: HEPARIN NA (PORCINE) 5,000 UNITS/ML 1ML VIAL IVPUSH PRN (21:46)
[2018-07-02] MEDS: HEPARIN NA (PORCINE) 5,000 UNITS/ML 1ML VIAL IVPUSH PRN (03:53)
[2018-07-02] MEDS: INSULIN SLIDING SCALE (NOVOLOG) 1 VIAL SQ SCH ×2 (06:46→10:42)
[2018-07-02 07:32] LABS: HEMATOCRIT 25.3 % (32.4-45.2); HEMOGLOBIN 8.1 GM/dL (10.7-15.3); MCH 23.3 pg (25.7-33.7); MEAN CELL VOLUME 72.6 fl (80-96); MEAN PLT VOLUME 7.1 fl (7.5-11.1); PLATELET COUNT 553 K/MM3 (134-434); RBC 3.49 M/mm3 (3.60-5.2); RDW 24.8 % (11.6-15.6); WHITE BLOOD COUNT 19.8 K/mm3 (4.0-10.0)
[2018-07-02 08:01] LABS: ANION GAP 10 (8-16); BLOOD UREA NITROGEN 3 mg/dL (7-18); CALCIUM 7.3 mg/dL (8.5-10.1); CHLORIDE 109 mmol/L (98-107); CO2 23 mmol/L (21-32); CREATININE 0.6 mg/dL (0.55-1.02); GLUCOSE,RANDOM 206 mg/dL (74-106); POTASSIUM 3.8 mmol/L (3.5-5.1); SODIUM 142 mmol/L (136-145)
--- NOTE | 2018-07-02 08:58 | PN ---
Teaching Attending Note Name of Resident: Radha Kwon ATTENDING PHYSICIAN STATEMENT I saw and evaluated the patient. I reviewed the resident's note and discussed the case with the resident. I agree with the resident's findings and plan as documented. SUBJECTIVE: The nurse called that the patient wants to sign against medical advice. Went to see the patient and explained to her the risks of not staying in the hospital. The patient told me that she received a phone call regarding her mother and that she has to go and do the paperwork of her mother. Patient was explained the risks of signing against medical advice that: she has a DVT which can migrate to her lungs and develop pulmonary embolism and can from it. She can from GI bleed since hemoglobin is dropping, patient received a unit of transfusion yesterday, was 8.7-->dropped to 8.1, could not discharge her on any Noac since patient is noncompliant and does not follow with a physician. Also the patient has a bleeding issue will not be safe to discharge her on any Noacs. Case discussed with who agrees with the plan and discussed with . Patient was adviced to come back. OBJECTIVE: Vital Signs Temperature 99.1 F 07/02/18 06:00 Pulse Rate 82 07/02/18 06:00 Respiratory Rate 20 07/02/18 06:00 Blood Pressure 119/59 07/02/18 06:00 O2 Sat by Pulse Oximetry (%) 99 07/01/18 21:00 CBCD WBC 19.8 K/mm3 (4.0-10.0) H 07/02/18 07:00 RBC 3.49 M/mm3 (3.60-5.2) L 07/02/18 07:00 Hgb 8.1 GM/dL (10.7-15.3) L 07/02/18 07:00 Hct 25.3 % (32.4-45.2) L 07/02/18 07:00 MCV 72.6 fl (80-96) L 07/02/18 07:00 MCHC 32.0 g/dl (32.0-36.0) 07/02/18 07:00 RDW 24.8 % (11.6-15.6) H 07/02/18 07:00 Plt Count 553 K/MM3 (134-434) H 07/02/18 07:00 MPV 7.1 fl (7.5-11.1) L 07/02/18 07:00 CMP Sodium 142 mmol/L (136-145) 07/02/18 07:00 Potassium 3.8 mmol/L (3.5-5.1) 07/02/18 07:00 Chloride 109 mmol/L (98-107) H 07/02/18 07:00 Carbon Dioxide 23 mmol/L (21-32) 07/02/18 07:00 Anion Gap 10 (8-16) 07/02/18 07:00 BUN 3 mg/dL (7-18) L 07/02/18 07:00 Creatinine 0.6 mg/dL (0.55-1.02) 07/02/18 07:00 Creat Clearance w eGFR > 60 (>60) 07/02/18 07:00 Random Glucose 206 mg/dL (74-106) H 07/02/18 07:00 Calcium 7.3 mg/dL (8.5-10.1) L 07/02/18 07:00 Total Bilirubin 0.4 mg/dL (0.2-1.0) 06/29/18 06:30 AST 5 U/L (15-37) L 06/29/18 06:30 ALT 9 U/L (12-78) L 06/29/18 06:30 Alkaline Phosphatase 64 U/L (45-117) 06/29/18 06:30 Total Protein 4.1 g/dl (6.4-8.2) L 06/29/18 06:30 Albumin 1.7 g/dl (3.4-5.0) L 06/29/18 06:30 CARDIAC ENZYMES Troponin I < 0.02 ng/ml (0.00-0.05) 06/25/18 13:12 Home Medications Medication Instructions Recorded Glimepiride [Amaryl -] 4 mg PO BID 10/26/12 Lisinopril [Prinivil] 20 mg PO DAILY 10/26/12 Sitagliptin Phosphate [Januvia] 100 mg PO DAILY 10/26/12 metFORMIN HCL [Glucophage -] 850 mg PO TID 10/26/12 Cholecalciferol (Vitamin D3) 2,000 unit PO DAILY 07/14/14 [Vitamin D3] Fenofibrate Nanocrystallized 145 mg PO DAILY 07/14/14 [Tricor] Insulin Lispro [Humalog] 5 unit SQ AC 07/14/14 Multivitamins [Multivit ([facility] 1 tab PO DAILY 07/14/14 Formulary)] Acarbose [Precose -] 25 mg PO TID 06/25/18 Diclofenac Sodium 50 mg PO BID 06/25/18 Duloxetine HCl [Cymbalta] 30 mg PO DAILY 06/25/18 Oxycodone HCl/Acetaminophen 1 each PO PRN 06/25/18 [Endocet 10-325 mg Tablet] Omeprazole 20 mg PO DAILY 06/27/18 Current Medications Generic Name Dose Route Start Last Admin Trade Name Freq PRN Reason Stop Dose Admin Acetaminophen 325 mg 06/30/18 10:00 07/01/18 22:39 Tylenol - PO 325 mg BID YAMILKA Administration Heparin Sodium (Porcine) 5,000 unit 07/01/18 18:09 07/02/18 03:53 Heparin - IVPUSH 5,000 unit PRN PRN Administration Heparin Heparin Sodium (Porcine) 1,000 unit 07/01/18 18:09 Heparin - IVPUSH PRN PRN Heparin Ceftriaxone Sodium 1 gm/ 50 mls @ 100 mls/hr 06/30/18 20:30 07/01/18 20:36 Dextrose IVPB 100 mls/hr DAILY@2030 YAMILKA Administration Metronidazole 500 mg in 100 mls @ 100 mls/hr 06/30/18 10:00 07/02/18 01:41 Flagyl 500mg Premixed Ivpb - IVPB 100 mls/hr Q8H-IV YAMILKA Administration Sodium Chloride 1,000 mls @ 75 mls/hr 06/30/18 16:30 07/01/18 19:24 Normal Saline - IV 75 mls/hr ASDIR YAMILKA Administration Heparin Sodium (Porcine) 25, 500 mls @ 30.56 mls/hr 06/30/18 21:15 07/02/18 03:40 000 unit/ Sodium Chloride IV 20.31 unit/kg/hr TITR YAMILKA 34.5 mls/hr Titration Protocol 18 UNIT/KG/HR Insulin Aspart 1 vial 06/27/18 07:00 07/02/18 06:46 Novolog Vial Sliding Scale - SQ 1 vial TIDAC YAMILKA Administration Protocol Lactobacillus Acidophilus 1 tab 07/01/18 10:15 07/01/18 22:39 Bacid - PO 1 tab BID YAMILKA Administration Nystatin 1 applic 06/28/18 22:00 07/01/18 22:40 Mycostatin Cream - TP 1 applic BID YAMILKA Administration Pantoprazole Sodium 40 mg 06/27/18 13:30 07/01/18 10:22 Protonix - PO 40 mg DAILY YAMILKA Administration
[2018-07-02 09:20] VITALS: BP 104/68; PULSE 92; TEMP 100.1
[2018-07-02] MEDS: LACTOBACILLUS ACIDOPHILUS 1 TABLET PO SCH (10:40)
[2018-07-02] MEDS: ACETAMINOPHEN 325 MG TABLET (FP) PO SCH (10:40)
[2018-07-02] MEDS: PANTOPRAZOLE 40 MG TABLET (FP) PO SCH (10:41)
[2018-07-02] MEDS: SODIUM CHLORIDE 1,000 ML IV SCH (10:43)
[2018-07-02] MEDS: HEPARIN - 25,000 UNIT in SODIUM CHLORIDE 495 ML IV SCH (10:44)
[2018-07-02] MEDS ORDERED: HEPARIN NA (PORCINE) 5,000 UNITS/ML 1ML VIAL IVPUSH ONE (11:24)
[2018-07-02] MEDS: NYSTATIN 100,000 UNIT/GM TOPICAL CREAM 15 GM TUBE TP SCH (11:30)
[2018-07-02] MEDS ORDERED: CHOLESTYRAMINE/ASPARTAME 4 GM PACKET PO SCH (12:00)
--- NOTE | 2018-07-02 12:37 | PN ---
Progress Note (short form) - Note Progress Note: Dr. Medrano called today while I was in office. Patient signed out AMA because "she had paperwork to do for her sick mother". Problem List - Problems (1) Colitis Code(s): K52.9 - NONINFECTIVE GASTROENTERITIS AND COLITIS, UNSPECIFIED (2) Microcytic anemia Code(s): D50.9 - IRON DEFICIENCY ANEMIA, UNSPECIFIED (3) Chronic diarrhea Code(s): K52.9 - NONINFECTIVE GASTROENTERITIS AND COLITIS, UNSPECIFIED
--- NOTE | 2018-07-02 15:08 | DS ---
Physical Exam: SUBJECTIVE: Patient is a 58 y/o female with a history of IDDM, anemia, HTN, gastric ulcers, gastric bypass, IBS, chronic diarrhea who is here for anemia, colitis, and leukocytosis. She reports she is continuing to have diarrhea. OBJECTIVE: Vital Signs Period Temp Pulse Resp BP Sys/Funes Pulse Ox Last 24 Hr 97.6 F-100.1 F 82-97 20-22 104-120/53-68 99-99 PHYSICAL EXAM GENERAL: The patient is awake, alert, and fully oriented, in no acute distress. HEAD: Normal with no signs of trauma. EYES: PERRL, extraocular movements intact LUNGS: Breath sounds equal, clear to auscultation bilaterally HEART: Regular rate and rhythm, ABDOMEN: Soft, diffusely tender to palpation, slightly distended EXTREMITIES: warm, well-perfused, R Lextremity edema PSYCH: Normal mood, normal affect. SKIN: Warm, dry, normal turgor, no rashes or lesions noted LABS Laboratory Results - last 24 hr 06/26/18 07/01/18 07/01/18 15:30 16:34 20:20 WBC RBC Hgb Hct MCV MCH MCHC RDW Plt Count MPV PTT (Actin FS) 38.5 H Sodium Potassium Chloride Carbon Dioxide Anion Gap BUN Creatinine Creat Clearance w eGFR POC Glucometer 189 Random Glucose Calcium Stool H. pylori Ag Negative 07/01/18 07/02/18 07/02/18 20:20 03:10 06:20 WBC 19.6 H RBC 3.72 Hgb 8.7 L Hct 27.0 L D MCV 72.6 L MCH 23.3 L MCHC 32.0 RDW 24.4 H Plt Count 586 H MPV 7.2 L PTT (Actin FS) 30.4 Sodium Potassium Chloride Carbon Dioxide Anion Gap BUN Creatinine Creat Clearance w eGFR POC Glucometer 220 Random Glucose Calcium Stool H. pylori Ag 07/02/18 07/02/18 07/02/18 07:00 07:00 09:58 WBC 19.8 H RBC 3.49 L Hgb 8.1 L Hct 25.3 L MCV 72.6 L MCH 23.3 L MCHC 32.0 RDW 24.8 H Plt Count 553 H MPV 7.1 L PTT (Actin FS) 40.1 H Sodium 142 Potassium 3.8 Chloride 109 H Carbon Dioxide 23 Anion Gap 10 BUN 3 L Creatinine 0.6 Creat Clearance w eGFR > 60 POC Glucometer Random Glucose 206 H Calcium 7.3 L Stool H. pylori Ag 07/02/18 10:37 WBC RBC Hgb Hct MCV MCH MCHC RDW Plt Count MPV PTT (Actin FS) Sodium Potassium Chloride Carbon Dioxide Anion Gap BUN Creatinine Creat Clearance w eGFR POC Glucometer 189 Random Glucose Calcium Stool H. pylori Ag HOSPITAL COURSE: Date of Admission:06/25/18 Patient is a 58 y/o female with a history of IDDM, anemia, HTN, gastric ulcers, gastric bypass, IBS, chronic diarrhea who presented with alternating diarrhea and constipation. According to the patient she has been having a long history of "pesto like" diarrhea. Patient presented with a Hgb of 5.9. She was transfused one unit of PRBC 06/25 and her repeat Hgb went up to 10.0. Over the course of her stay her Hgb slowly down trended and on 07/01 she received another unit of PRBC. Iron studies showed iron deficiency microcytic anemia. Patient presented with a leukocytosis of 14.3 and the WBC steadily increased throughout her stay. She was started on Ceftriaxone and Metronidazole and completed a 6 day treatment. Patient also was febrile on and off throughout her stay. She was given tylenol and her fever resolved. Stool O &P samples taken and still pending. Hepatitis panel negative and HIV negative. Stool CX negative , Infectious source not ruled out Abd CT 06/25: mild continuous concentric wall thickening along sigmoid and descending colon, mild concentric wall thickening involving distal small bowel loop with right lower pelvis, may be basis of acute or chronic enteroclotitis KUB: suggestive of enterocolitis, could be SBO or ileus, dilated bowel loops GI was consulted and an EGD and Colonoscopy were preformed. Patient had ulcerations in he stomach, small bowel, and colon. Patient was taking Diclofenac for migraines. It is thought that these irritated her gastric lining and caused the ulcers to bleed. She then became hypotensive with anemia causing ischemic colitis. Multiple biopsies were taken from the lining to rule out IBD. Patient also has a gastrin level pending. Patient Anti gliadin levels negative and Tissue transglutamin negative. During the patients stay patient was placed on SCD's. Patient was unable to be anticoagulated with heparin due to ulcer, anemia, and risk of bleeding. While she was on SCD's she developed clot in her R femoral vein. She was started on a heparin drip. Dr. Mendez, was consulted and discussed with Dr. Sanon that anticoagulation was okay to start at this time. While she was anticoagulated on heparin drip, her Hgb continued to drop and she received one unit of PRBC. The next day her HgB continued to drop and patient was still considered a high risk for active GI bleed, even though she received unit of PRBC. Hematology was consulted and considered placing an IVC filter because of patients bleeding risk from the ulcers, but the decision was not made before patient decided to sign AMA. On 07/02, the patient expressed the desire to leave AMA. She had to leave to do paperwork for her mother. It was explained to patient that she may still have gastric bleeding which will worsen her anemia. It was also explained to her that if her DVT is not treated with heparin she will develop pulmonary embolism or she may continue to have bleeding which could result in or coma. She was not sent home on anticoagulation because of her risk of bleeding. She stated she is aware of the risks and that leaving may lead to continued diarrhea , bleeding, anemia, pulmonary embolism, a coma, or even and still wished to leave. AMA papers were signed and can be found in the patient's medical record. Also, patient is noncompliant with her medications and she does not follow up with her physicians. Patient was also asked to follow up with Dr. Sanon and the hospital clinic. The patient stated that she will be coming back on Thursday 07/05. Patient had an echo done which showed normal function, mild tricuspid regurg, EF 65-70%. Patient presented with an ELLA 2/2 to hypoperfusion. BUN/Cr 63/ 2.5. Patient given fluids and her BUN/Cr resolved. Date of Discharge: 07/02/18 Minutes to complete discharge: 50 Discharge Summary Reason For Visit: LEUKOCYTOSIS,HYPOTENSION,LACTIC ACIDOSIS,HYPERCALC Condition: Stable - Instructions Disposition: AGAINST MEDICAL ADVICE - Home Medications Comprehensive Discharge Medication List: Ambulatory Orders Glimepiride [Amaryl -] 4 mg PO BID 10/26/12 Lisinopril [Prinivil] 20 mg PO DAILY 10/26/12 Sitagliptin Phosphate [Januvia] 100 mg PO DAILY 10/26/12 metFORMIN HCL [Glucophage -] 850 mg PO TID 10/26/12 Cholecalciferol (Vitamin D3) [Vitamin D3] 2,000 unit PO DAILY 07/14/14 Fenofibrate Nanocrystallized [Tricor] 145 mg PO DAILY 07/14/14 Insulin Lispro [Humalog] 5 unit SQ AC 07/14/14 Multivitamins [Multivit ([facility] Formulary)] 1 tab PO DAILY 07/14/14 Acarbose [Precose -] 25 mg PO TID 06/25/18 Diclofenac Sodium 50 mg PO BID 06/25/18 Duloxetine HCl [Cymbalta] 30 mg PO DAILY 06/25/18 Oxycodone HCl/Acetaminophen [Endocet 10-325 mg Tablet] 1 each PO PRN 06/25/18 Omeprazole 20 mg PO DAILY 06/27/18 This patient is new to me today: No Emergency Visit: No Critical Care patient: No - Discharge Referral Referred to [facility] No
--- NOTE | 2018-07-02 18:39 | PN ---
Progress Note (short form) - Note Progress Note: Ms. Knox called my office this evening after having signed out AMA (called from [phone]). She stated that she would like to see me as an outpatient. I explained that she has multiple problems going on right now that require hospital care, not outpatient care, and that her current medical problems could be life threatening including her anemia and clot in her leg. I explained that she could develop pulmonary embolus and and that she should return to the hospital now. She insisted that she could not and would think about going back to the hospital on the weekend. Problem List - Problems (1) Colitis Code(s): K52.9 - NONINFECTIVE GASTROENTERITIS AND COLITIS, UNSPECIFIED (2) Microcytic anemia Code(s): D50.9 - IRON DEFICIENCY ANEMIA, UNSPECIFIED (3) Chronic diarrhea Code(s): K52.9 - NONINFECTIVE GASTROENTERITIS AND COLITIS, UNSPECIFIED
--- NOTE | 2018-07-07 14:36 | PATH ---
Surgical Pathology Report Patient Name: JULIEN GATES Med. Rec. #: [id number] /Age/Gender: 1960 (Age: 58) / F Account: [id number] Location: [facility] MED/SURG Taken: 06/30/2018 Received: 06/30/2018 Reported: 07/07/2018 Physicians: Paris Lopez M.D. Specimen(s) Received A: SMALL BOWEL, BIOPSY B: PROXIMAL SMALL BOWEL, BIOPSY C: SMALL BOWEL, BIOPSY ULCERS D: BX RIGHT COLON E: BX TRANSVERSE COLON F: BX DISTAL TRANSVERSE COLON G: BX SIGMOID/DESCENDING COLON H: BX DISTAL SIGMOID/DESCENDING COLON Clinical History Diarrhea Postoperative diagnosis: Ulcers, small bowel, colitis Final Diagnosis A. SMALL BOWEL, DISTAL TO GASTROENTERIC ANASTOMOSIS, BIOPSY: SMALL BOWEL MUCOSA WITHOUT SIGNIFICANT PATHOLOGIC FINDINGS. B. PROXIMAL SMALL BOWEL, GASTRO-ENTERIC ANASTOMOSIS, BIOPSY: SMALL BOWEL MUCOSA WITH MILD CHRONIC INFLAMMATION AND FOCAL FIBROSIS. C. SMALL BOWEL, ULCERS, BIOPSY: SMALL BOWEL MUCOSA WITH ACUTE COLITIS AND ASSOCIATED ULCERATION. ACUTE NEUTROPHILIC EXUDATE CONSISTENT WITH ULCER BASE. D. COLON, RIGHT, BIOPSY: COLONIC MUCOSA WITH SMALL LYMPHOID AGGREGATE. E. TRANSVERSE COLON, BIOPSY: COLONIC MUCOSA WITH SMALL LYMPHOID AGGREGATE. F. DISTAL TRANSVERSE COLON, BIOPSY: COLONIC MUCOSA WITH FOCAL EDEMA AND MILD INCREASE IN CHRONIC INFLAMMATORY INFILTRATE WITHIN LAMINA PROPRIA. NO SIGNIFICANT INCREASE IN INTRAEPITHELIAL LYMPHOCYTES OR FEATURES OF LYMPHOCYTIC COLITIS. G. SIGMOID/DESCENDING COLON, BIOPSY: COLONIC MUCOSA WITH MILD FOCAL ARCHITECTURAL DISTORTION AND MILD INCREASE IN ACUTE AND CHRONIC INFLAMMATORY INFILTRATE WITHIN LAMINA PROPRIA. SEPARATE AGGREGATES OF ACUTE INFLAMMATORY EXUDATE CONSISTENT WITH ULCER BASE. H. Distal sigmoid/descending colon, biopsy: Colonic mucosa with acute colitis and associated ulceration. Separate aggregates of acute inflammatory EXUDATE consistent with ulcer base. Comment: Immunohistochemical stains performed at [place], [place] ([id number]) and interpreted at [facility] for CMV (Blocks C, H) are negative. Findings are non-specific. Differential diagnosis includes infection, medication, and possibility of early inflammatory bowel disease. Suggest clinical/endoscopic correlation. Electronically Signed Radha Cancino M.D. Gross Description A. Received in formalin, labeled "distal to gastro-enteric anastomosis, BX small bowel" are 3 brambila, irregular portions of soft tissue ranging in size from 0.1-0.3 cm. in greatest dimension. The specimens are submitted in toto in one cassette. B. Received in formalin, labeled "#2 gastroenteric anastomosis, BX proximal small bowel anastomosis" are 2 brambila, irregular portions of soft tissue measuring 0.2 cm. in greatest dimension. The specimens are submitted in toto in one cassette. C. Received in formalin, labeled "distal to gastroenteric anastomosis, BX, ulcer small bowel, rule out CMV" are 2 brambila, irregular portions of soft tissue measuring 0.1 and 0.2 cm. in greatest dimension. The specimens are submitted in toto in one cassette. D. Received in formalin, labeled "right colon" are 3 brambila, irregular portions of soft tissue measuring 0.2 cm. in greatest dimension. The specimens are submitted in toto in one cassette. E. Received in formalin, labeled "BX transverse colon for microscopic colitis" are 3 brambila, irregular portions of soft tissue measuring 0.1 and 0.2 cm. in greatest dimension. The specimens are submitted in toto in one cassette. F. Received in formalin, labeled "BX colitis, distal transverse colon" are 2 brambila, irregular portions of soft tissue measuring 0.1 and 0.2 cm. in greatest dimension. The specimens are submitted in toto in one cassette. G. Received in formalin, labeled "BX colitis, sigmoid/descending colon" are 6 an, irregular portions of soft tissue measuring 0.1-0.2 cm. in greatest dimension. The specimens are submitted in toto in one cassette. H. Received in formalin, labeled "BX colitis, distal sigmoid/descending colon" are 3 brambila, irregular portions of soft tissue measuring 0.1 and 0.2 cm. in greatest dimension. The specimens are submitted in toto in one cassette. MLSZ/06/30/2018 sanml06/30/2018
[2018-07-08 16:35] LABS: ATYPICAL pANCA <1:20 titer (Neg:<1:20)
== END 2018-07-02 12:17 | disposition left against medical advice (07) | DRG 663 ==
LOC: JER 12:28 → JERBED 15:06 → J4S 19:09 → J8W 06-29 10:09
PROVIDERS: ADMIT Internal Medicine; ATTEND Internal Medicine
PROC: 30233N1 Transfusion of Nonautologous Red Blood Cells into Peripheral Vein, Percutaneous Approach (ICD-10-PCS; 2018-06-25)
PROC: 0DB88ZX Excision of Small Intestine, Via Natural or Artificial Opening Endoscopic, Diagnostic (ICD-10-PCS; 2018-06-30)
PROC: 0DB68ZX Excision of Stomach, Via Natural or Artificial Opening Endoscopic, Diagnostic (ICD-10-PCS; principal; 2018-06-30 08:00)
DX: D50.9 Iron deficiency anemia, unspecified (principal); N17.9 Acute kidney failure, unspecified; K63.3 Ulcer of intestine; I82.411 Acute embolism and thrombosis of right femoral vein; E87.2 Acidosis; F11.20 Opioid dependence, uncomplicated; E87.1 Hypo-osmolality and hyponatremia; I82.811 Embolism and thrombosis of superficial veins of right lower extremity; E87.5 Hyperkalemia; I36.1 Nonrheumatic tricuspid (valve) insufficiency; B37.0 Candidal stomatitis; I95.9 Hypotension, unspecified; E11.9 Type 2 diabetes mellitus without complications; Z79.4 Long term (current) use of insulin; I10 Essential (primary) hypertension; E78.5 Hyperlipidemia, unspecified; K21.9 Gastro-esophageal reflux disease without esophagitis; K52.9 Noninfective gastroenteritis and colitis, unspecified; Z98.84 Bariatric surgery status; R79.1 Abnormal coagulation profile; E87.8 Other disorders of electrolyte and fluid balance, not elsewhere classified; E83.51 Hypocalcemia; E83.42 Hypomagnesemia; G89.29 Other chronic pain; M54.9 Dorsalgia, unspecified; F03.90 Unspecified dementia, unspecified severity, without behavioral disturbance, psychotic disturbance, mood disturbance, and anxiety; R91.1 Solitary pulmonary nodule; G43.909 Migraine, unspecified, not intractable, without status migrainosus; D65 Disseminated intravascular coagulation [defibrination syndrome]
CPT/HCPCS: 36415; 36430; 36600; 70450-TC; 71045-TC-FY; 74018-TC-FY; 74176-TC; 80048; 80053; 81003; 82272; 82570; 82607; 82728; 82746; 82784; 82803; 82941; 82962; 83021; 83036; 83516; 83540; 83550; 83605; 83735; 84100; 84156; 84300; 84443; 84466; 84484; 84540; 85025; 85027; 85610; 85660; 85730; 86078; 86256; 86593; 86671; 86704; 86705; 86706; 86708; 86803; 86850; 86870; 86900; 86901; 86902; 86922; 87040; 87045; 87046; 87086; 87116; 87177; 87205; 87206; 87209; 87324; 87338; 87340; 87389; 87449; 88305-TC; 93005; 93010; 93306-TC; 93971-TC; 94640; 99285-25; J0131; J1644; J7030; P9038; P9058

== ENCOUNTER 2018-09-06 15:04 | Inpatient (IN) | payer OTHER ==
[2018-09-06] MEDS ORDERED: SODIUM CHLORIDE 1,000 ML IV STA ×2 (15:30→17:28)
--- NOTE | 2018-09-06 15:44 | PDOC ---
History of Present Illness - General History Source: Patient, Other (significant other) - History of Present Illness Timing/Duration: other Severity: severe Associated Symptoms: denies: chest pain, cough, nausea/vomiting, shortness of breath <Elvia García - Last Filed: 09/07/18 08:07> <Kaylie Stanley - Last Filed: 09/09/18 16:04> - General Chief Complaint: Weakness Stated Complaint: WEAKNESS Time Seen by Provider: 09/06/18 15:14 Past History - Past Medical History Anemia: Yes Asthma: No Cancer: No Cardiac Disorders: No CVA: No COPD: No CHF: No Dementia: No Diabetes: Yes (iddm) GI Disorders: Yes (GERD) Disorders: No HTN: Yes Hypercholesterolemia: Yes Liver Disease: No Seizures: No Thyroid Disease: No - Surgical History Abdominal Surgery: No Appendectomy: No Cardiac Surgery: No Cholecystectomy: Yes Gastric Stapling: No (BYPASS) Lung Surgery: No Neurologic Surgery: No Orthopedic Surgery: No - Immunization History Immunization Up to Date: Yes - Suicide/Smoking/Psychosocial Hx Smoking Status: No Smoking History: Unknown if ever smoked Have you smoked in the past 12 months: No Number of Cigarettes Smoked Daily: 0 Information on smoking cessation initiated: No Hx Alcohol Use: No Drug/Substance Use Hx: No Substance Use Type: None Hx Substance Use Treatment: No <Elvia García - Last Filed: 09/07/18 08:07> <Kaylie Stanley - Last Filed: 09/09/18 16:04> - Past Medical History Allergies/Adverse Reactions: Allergies Allergy/AdvReac Type Severity Reaction Status Date / Time No Known Allergies Allergy Verified 09/06/18 15:25 Home Medications: Ambulatory Orders Glimepiride [Amaryl -] 4 mg PO BID 10/26/12 Cholecalciferol (Vitamin D3) [Vitamin D3] 2,000 unit PO DAILY 07/14/14 Fenofibrate Nanocrystallized [Tricor] 145 mg PO DAILY 07/14/14 Insulin Lispro [Humalog] 5 unit SQ AC 07/14/14 Multivitamins [Multivit ([facility] Form[facility])] 1 tab PO DAILY 07/14/14 Acarbose [Precose -] 25 mg PO TID 06/25/18 Duloxetine HCl [Cymbalta] 30 mg PO DAILY 06/25/18 Omeprazole 20 mg PO DAILY 06/27/18 Ferrous Sulfate [Feosol] 325 mg PO DAILY #30 ud 07/15/18 Insulin Aspart [Novolog Flexpen] See Protocol SQ ACHS #5 insuln.pen 07/15/18 Mesalamine [Asacol HD -] 800 mg PO TID #60 tablet. 07/15/18 Oxycodone HCl 5 mg PO Q6H #8 tablet MDD 2 07/15/18 Apixaban [Eliquis] 5 mg PO BID #60 tablet 08/06/18 Lisinopril 2.5 mg PO DAILY #30 tablet 08/06/18 Metformin HCl 850 mg PO BID 09/07/18 Oxycodone HCl/Acetaminophen [Percocet 10-325 mg Tablet] 1 each PO TID PRN Pravastatin Sodium [Pravachol (Nf)] 80 mg PO HS 09/07/18 Sitagliptin Phosphate [Januvia] 100 mg PO DAILY 09/07/18 Review of Systems - Review of Systems Constitutional: No: Chills, Fever Respiratory: No: Cough, Shortness of Breath Cardiac (ROS): No: Chest Pain ABD/GI: No: Blood Streaked Bowels, Constipated, Diarrhea, Nausea, Rectal Bleeding, Vomiting, Abdominal cramping : No: Dysuria, Flank Pain, Hematuria <Elvia García - Last Filed: 09/07/18 08:07> *Physical Exam - Vital Signs Last Vital Signs Temp Pulse Resp BP Pulse Ox 99.9 F H 119 H 16 102/57 L 94 L 09/06/18 15:12 09/06/18 15:12 09/06/18 15:12 09/06/18 15:12 09/06/18 15:12 - Physical Exam Comments: 09/06/18 16:15 myron mildly lethargic General Appearance: Yes: Appropriately Dressed HEENT: positive: MAILE, Normal Voice. negative: Scleral Icterus (R), Scleral Icterus (L) Neck: positive: Supple Respiratory/Chest: positive: Lungs Clear, Normal Breath Sounds. negative: Respiratory Distress Cardiovascular: positive: S1, S2, Tachycardia Gastrointestinal/Abdominal: positive: Tender (to LUQ), Soft. negative: Normal Bowel Sounds, Distended, Guarding, Rebound Musculoskeletal: negative: CVA Tenderness Integumentary: positive: Dry, Warm Neurologic: positive: Alert (oriented to place and person only) <Elvia García - Last Filed: 09/07/18 08:07> - Vital Signs Last Vital Signs Temp Pulse Resp BP Pulse Ox 98.6 F 116 H 18 134/64 96 09/09/18 15:00 09/09/18 15:00 09/09/18 15:00 09/09/18 15:00 09/09/18 10:00 <Kaylie Stanley - Last Filed: 09/09/18 16:04> ED Treatment Course - LABORATORY CBC & Chemistry Diagram: 09/06/18 20:00 09/07/18 04:14 - RADIOLOGY Radiology Studies Ordered: Category Date Time Status CHEST X-RAY PORTABLE* [RAD] Stat Radiology 09/06/18 15:29 Ordered <Elvia García - Last Filed: 09/07/18 08:07> - LABORATORY CBC & Chemistry Diagram: 09/09/18 06:00 09/09/18 06:00 - ADDITIONAL ORDERS Additional order review: Laboratory Results 09/06/18 22:28 Specimen Type CSF Lyme Disease DNA Cancelled CSF Herpes II IgG Ab Cancelled CSF West Nile IgG Ab Cancelled CSF West Nile IgM Ab Cancelled 09/06/18 17:22 Blood Culture - Preliminary Blood - Peripheral Venous NO GROWTH OBTAINED AFTER 48 HOURS, INCUBATION TO CONTINUE FOR 3 DAYS. 09/06/18 17:22 Blood Culture - Preliminary Blood - Peripheral Venous NO GROWTH OBTAINED AFTER 48 HOURS, INCUBATION TO CONTINUE FOR 3 DAYS. 09/06/18 16:04 Urine Culture - Final Urine - Urine La NO GROWTH OBTAINED 09/06/18 22:28 Streptococcus pneumoniae Antigen (M - Final Cerebral Spinal Fluid - Lumbar Puncture 09/06/18 09/06/18 20:00 15:48 RBC 3.19 L 3.53 L MCV 79.7 L 79.6 L MCHC 31.6 L 31.6 L RDW 17.3 H 17.3 H MPV 7.6 7.7 Neutrophils % 82.9 H 89.7 H D Lymphocytes % 7.2 L D 5.2 L D Monocytes % 8.8 D 4.8 Eosinophils % 1.0 D 0.1 D Basophils % 0.1 0.2 - Medications Given in the ED: ED Medications Discontinued Medications Generic Name Dose Route Start Last Admin Trade Name Silvia PRN Reason Stop Dose Admin Acetaminophen 650 mg 09/06/18 15:56 09/06/18 16:47 Tylenol - PO 09/06/18 15:57 650 mg ONCE ONE Administration Acetylcysteine 10,900 mg 09/06/18 19:35 09/06/18 20:37 Acetadote 20 Injection Use Only* - 150 mg/kg (22632 mg) 09/06/18 19:36 10, 900 mg IVPB Administration ONCE ONE Acetylcysteine 3,600 mg 09/06/18 19:35 09/06/18 21:58 Acetadote 20 Injection Use Only* - 50 mg/kg (3600 mg) 09/06/18 19:36 3,600 mg IVPB Administration ONCE ONE Acetylcysteine 7,300 mg 09/06/18 19:35 09/07/18 02:53 Acetadote 20 Injection Use Only* - 100 mg/kg (7300 mg) 09/06/18 19:36 7, 300 mg IVPB Administration ONCE ONE Albuterol Sulfate 1 amp 09/06/18 17:31 09/06/18 18:03 Ventolin 0.083% Nebulizer Soln - NEB 09/06/18 17:32 1 amp ONCE ONE Administration Buprenorphine/Naloxone 1 each 09/08/18 10:00 09/08/18 10:55 Suboxone 2mg/0.5mg Sl Film - SL 09/08/18 10:01 1 each ONCE ONE Administration Buprenorphine/Naloxone 2 each 09/08/18 20:12 09/08/18 22:49 Suboxone 2mg/0.5mg Sl Film - SL 09/08/18 20:13 Not Given ONCE ONE Calcitriol 0.5 mcg 09/07/18 08:00 09/07/18 09:00 Rocaltrol - PO 0.5 mcg DAILY YAMILKA Administration Calcitriol 0.5 mcg 09/07/18 22:30 09/07/18 23:22 Rocaltrol - PO 09/07/18 22:31 0.5 mcg ONCE ONE Administration Calcitriol 0.5 mcg 09/08/18 10:00 09/08/18 10:09 Rocaltrol - PO 0.5 mcg DAILY YAMILKA Administration Calcium Carbonate/Cholecalciferol 2 tab 09/06/18 22:15 09/07/18 09:40 Os-Willy 500+D - PO 2 tab BID YAMILKA Administration Calcium Carbonate/Cholecalciferol 2 tab 09/07/18 22:00 09/08/18 22:12 Os-Willy 500+D - PO 2 tab BID YAMILKA Administration Calcium Gluconate 1,000 mg 09/06/18 17:29 09/06/18 18:02 Calcium Gluconate 10% - IVPUSH 09/06/18 17:30 1,000 mg ONCE ONE Administration Calcium Gluconate 1,000 mg 09/06/18 22:04 09/06/18 22:15 Calcium Gluconate 10% - IVPUSH 09/06/18 22:05 1,000 mg ONCE ONE Administration Dextrose 25 gm 09/06/18 17:30 09/06/18 18:03 D50w (Vial) - IVPUSH 09/06/18 17:31 25 gm NOW ONE Administration Dextrose 25 gm 09/06/18 18:03 09/06/18 18:12 D50w (Vial) - IVPUSH 09/06/18 18:04 25 gm NOW ONE Administration Heparin Sodium (Porcine) 5,000 unit 09/07/18 02:13 09/07/18 07:34 Heparin - SQ 5,000 unit TID YAMILKA Administration Heparin Sodium (Porcine) 5,000 unit 09/07/18 22:00 09/08/18 15:10 Heparin - SQ 5,000 unit TID YAMILKA Administration Sodium Chloride 1,000 mls @ 1,000 mls/hr 09/06/18 15:30 09/06/18 15:54 Normal Saline - IV 09/06/18 16:29 1,000 mls/hr ASDIR STA Administration Sodium Chloride 1,000 mls @ 1,000 mls/hr 09/06/18 17:28 09/06/18 18:02 Normal Saline - IV 09/06/18 18:27 1,000 mls/hr ASDIR STA Administration Vancomycin HCl 1,000 mg/ 250 mls @ 250 mls/hr 09/06/18 17:55 09/06/18 18:45 Dextrose IVPB 09/06/18 18:54 250 mls/hr ONCE ONE Administration Protocol Piperacillin Sod/Tazobactam 50 mls @ 100 mls/hr 09/06/18 17:56 09/06/18 18:12 Sod 3.375 gm/ Dextrose IVPB 09/06/18 18:25 100 mls/hr ONCE ONE Administration Protocol Sodium Chloride 1,000 mls @ 150 mls/hr 09/06/18 20:00 09/06/18 22:12 Normal Saline - IV 150 mls/hr ASDIR YAMILKA Administration Sodium Chloride 1,000 mls @ 150 mls/hr 09/07/18 09:30 09/07/18 16:55 1/2 Normal Saline IV 150 mls/hr ASDIR YAMILKA Administration Sodium Chloride 1,000 mls @ 150 mls/hr 09/07/18 21:28 09/07/18 23:21 1/2 Normal Saline IV 150 mls/hr ASDIR YAMILKA Administration Acetylcysteine 7,250 mg/ 1,036.25 mls @ 64.766 mls/hr 09/07/18 22:30 00:29 Dextrose IVPB 09/08/18 14:29 64.766 mls/hr ONCE ONE Administration Heparin Sodium/Dextrose 25,000 units in 500 mls @ 20 mls/hr 09/08/18 15:45 19:08 Heparin Infusion - IVPB 1,000 units/hr TITR YAMILKA 20 mls/hr Administration Protocol 1,000 UNITS/HR Sodium Chloride 1,000 mls @ 75 mls/hr 09/08/18 16:27 09/08/18 18:19 1/2 Normal Saline IV 75 mls/hr ASDIR YAMILKA Administration Insulin Aspart 1 vial 09/07/18 02:00 09/07/18 18:20 Novolog Vial Sliding Scale - SQ 2 unit Q4HPO [facility] Administration Protocol Insulin Aspart 1 vial 09/07/18 22:00 09/08/18 22:16 Novolog Vial Sliding Scale - SQ 2 units ACHS [facility] Administration Protocol Insulin Human Regular 10 units 09/06/18 17:29 09/06/18 18:02 Novolin R Vial *For Ivpush Or Iv Drip Only* IVPUSH 09/06/18 17:30 10 unit ONCE ONE Administration Magnesium Oxide 400 mg 09/09/18 12:54 09/09/18 14:24 Mag-Ox - PO 09/09/18 12:55 400 mg ONCE ONE Administration Magnesium Sulfate 2 gm 09/08/18 11:15 09/08/18 15:01 Magnesium Sulfate IVPB 09/08/18 11:16 2 gm ONCE ONE Administration Magnesium Sulfate 2 gm 09/09/18 10:45 09/09/18 11:26 Magnesium Sulfate IVPB 09/09/18 10:46 2 gm ONCE ONE Administration Melatonin 5 mg 09/08/18 01:30 09/08/18 02:15 Melatonin PO 09/08/18 01:31 5 mg ONCE ONE Administration Mupirocin 1 applic 09/07/18 10:00 09/07/18 09:42 Bactroban Ointment (For Decolonization) - NS 09/12/18 09:59 1 applic BID YAMILKA Administration Ondansetron HCl 4 mg 09/07/18 13:41 09/07/18 14:16 Zofran Injection IVPUSH 09/07/18 13:42 4 mg ONCE ONE Administration Potassium Chloride 40 meq 09/09/18 10:16 09/09/18 11:25 K-Dur - PO 09/09/18 10:17 40 meq ONCE ONE Administration Potassium Chloride 40 meq 09/09/18 12:49 09/09/18 14:23 K-Dur - PO 09/09/18 12:50 40 meq ONCE ONE Administration Sodium Bicarbonate 50 meq 09/06/18 17:30 09/06/18 18:03 Sodium Bicarbonate 8.4% - IVPUSH 09/06/18 17:31 50 meq ONCE ONE Administration Sodium Chloride 1,000 ml 09/06/18 17:29 09/06/18 18:02 Normal Saline - IV 09/06/18 17:30 1,000 ml ONCE ONE Administration Sodium Polystyrene Sulfonate 30 gm 09/06/18 17:28 09/06/18 18:03 Kayexalate - PO 09/06/18 17:29 Not Given ONCE ONE <Kaylie Stanley - Last Filed: 09/09/18 16:04> Medical Decision Making - Medical Decision Making 09/06/18 15:57 58 yo female, history of HTN, IDDM, s/p gastric bypass, recurrent anemia, gastric ulcer, possible ischemic colitis, chronic diarrhea, DVT on Eliquis, opiod dependence, s/p L humeral fx, BIB EMS after they received call that patient appears lethargic over the past several days, staying in bed mostly and refusing to eat. Pt's boyfriend, Ghassan, at bedside and reports that when EMT came to apartment, they found patient's bottle of percocet with only 10 tablets in it. Significant other states patient was given 90 tablets of percocet () 4 days ago and is now concerned pt might have taken the other 80 tabs over past few days. Per boyfriend, patient has been abusing percocet and in fact last month patient's case making machine operator at [facility] facility (community service program) took away a bottle of narcotics that pt has been prescribed 2/2 concern that pt was taking more that she was supposed to. Pt's pain specialicist , [employer] Luis Reeder prescribed 90 tablets on 09/02/18 based on [facility] report. Patient appears mildly lethargic in ED and oriented x2 (not baseline per BF) but able to give some history and admits that she took tablets but unable to give me any other information regarding medications. Denies that she was trying to hurt herself but unable to tell me why she took so many tablets in just 4 days. Per boyfriend, patient might have had an inpatient psych admission several years ago for unclear reason, but denies any known history of prior suicidal ideation or attempts. Pt continues to deny SI or attempt to me now. States she feels well and denies any medical complaints See exam AMS Based on hx, opiod OD suspected but per d/w ED attg will hold off on narcan at this time as pt alert and only mildly hypoxic to 94% on RA, will also hold off on poison control c/s Infxn also another possibility given low grade fever, tachycardia and mildly depressed BP -02 -IVF -labs including vargas-culture -ekg/cxr -CT a/p given LUQ ttp on exam -anticipate admission 09/06/18 17:33 Patient has multiple lab derangements including CPK of > 9K w/ creatinine of 4.8 , which is new for patient with BUN of 137 and K of 6.3. Also has hypocalcemia to 5.1. Hyper-K cocktail and IV fluid in progress. Will rpt labs after treatment and c/w renal as per d/w ED attg. + transaminitis, which is new for patient since 08/18. Acetaminophen lvl 9.8 w/ + opiods confirmed on utox. Will c /w poison control for recs at this time. Mild tropenemia of 0.06, m/l demand ischemia vs ACS. Pt reports no chest pain or shortness of breath at this time. Rpt EKG unchanged. Will give dose of broad spectrum abx as d/w ED attg. If no source of infection, pt may need LP given AMS and fever. Possibly need bed on unit 09/06/18 18:15 Case d/w Lizeth at Poison Control, states a clerical receptionist will contact me with recommendations t [phone] 09/06/18 18:35 Per poison control, Acetylcysteine should be initiated. Protocol is to initiate 150 mg/kg IV over one hour followed by 50 mg/kg IV over 4 hours, then 100 mg/kg IV over 16 hours totaling 21 hours of treatment. Recommending repeat LFTs and acetaminophen level 1 hour prior to completion of N-acetylcysteine. Also recommending iron level be drawn 09/06/18 19:[address] Calderón who wants rpt labs after hyperk cocktail and IVF. MD recommending maintenance fluids of 150-200 mL/hr. At this point patient signed out to Dr. Alfredo who will order acetylcysteine and repeat LFTs and acetaminophen level one hour prior to completion of treatment. Will also order maintenance fluids as per discussion with renal. Resident to also discuss case w/ product safety technical assistant <Elvia García - Last Filed: 09/07/18 08:07> - Medical Decision Making please see attending note and attestation, agree and d/w midlevel provider, Ricky. 09/09/18 16:04 <Kaylie Stanley - Last Filed: 09/09/18 16:04> *DC/Admit/Observation/Transfer <Elvia García - Last Filed: 09/07/18 08:07> - Discharge Dispostion Decision to Admit order: Yes <Kaylie Stanley - Last Filed: 09/09/18 16:04> Diagnosis at time of Disposition: Transaminitis, Hyperkalemia Rhabdomyolysis Qualifiers: Rhabdomyolysis type: non-traumatic Qualified Code(s): M62.82 - Rhabdomyolysis Acute renal failure Qualifiers: Acute renal failure type: unspecified Qualified Code(s): N17.9 - Acute kidney failure, unspecified Fever Qualifiers: Fever type: unspecified Qualified Code(s): R50.9 - Fever, unspecified Sepsis Qualifiers: Sepsis type: sepsis due to unspecified organism Qualified Code(s): A41.9 - Sepsis, unspecified organism Abdominal pain Qualifiers: Abdominal location: left upper quadrant Qualified Code(s): R10.12 - Left upper quadrant pain Acetaminophen toxicity Qualifiers: Encounter type: initial encounter Injury intent: undetermined intent Qualified Code(s): T39.1X4A - Poisoning by 4-Aminophenol derivatives, undetermined, initial encounter - Discharge Dispostion Condition at time of disposition: Guarded
[2018-09-06] MEDS ORDERED: ACETAMINOPHEN 325 MG TABLET (FP) PO ONE (15:56)
[2018-09-06 16:08] LABS: BASO % 0.2 % (0-2.0); EOS % 0.1 % (0-4.5); HEMATOCRIT 28.1 % (32.4-45.2); HEMOGLOBIN 8.9 GM/dL (10.7-15.3); LYMPH % 5.2 % (8-40); MCH 25.2 pg (25.7-33.7); MCHC 31.6 g/dl (32.0-36.0); MEAN CELL VOLUME 79.6 fl (80-96); MEAN PLT VOLUME 7.7 fl (7.5-11.1); MONO % 4.8 % (3.8-10.2); NEUT % 89.7 % (42.8-82.8); PLATELET COUNT 476 K/MM3 (134-434); RBC 3.53 M/mm3 (3.60-5.2); RDW 17.3 % (11.6-15.6); WHITE BLOOD COUNT 6.9 K/mm3 (4.0-10.0)
[2018-09-06 16:31] LABS: URINE APPEARANCE SLCLOUDY; URINE BILIRUBIN NEGATIVE (<2.0 mg/dL); URINE COLOR AMBER; URINE GLUCOSE (UA) NEGATIVE (NEGATIVE); URINE KETONE NEGATIVE (NEGATIVE); URINE LEUK ESTERASE NEGATIVE (NEGATIVE); URINE NITRITE NEGATIVE (NEGATIVE); URINE PROTEIN NEGATIVE (NEGATIVE); URINE UROBILINOGEN NEGATIVE mg/dL (0.2-1.0)
[2018-09-06 16:38] LABS: URINE MUCUS RARE
[2018-09-06] MEDS ORDERED: ACETAMINOPHEN 325 MG TABLET (FP) ONE (16:43)
[2018-09-06 16:59] LABS: COCAINE, UR NEGATIVE ng/ml (CUTOFF=300); METHADONE, UR NEGATIVE ng/ml (CUTOFF=300); PHENCYCLIDINE,URINE NEGATIVE ng/ml (CUTOFF=25); URINE AMPHETAMINES NEGATIVE ng/ml (CUTOFF=500); URINE BARBITURATES NEGATIVE ng/ml (CUTOFF=200); URINE BENZODIAZEPINES NEGATIVE ng/ml (CUTOFF=200)
[2018-09-06 17:00] LABS: OPIATES, URI POSITIVE ng/ml (CUTOFF=300)
[2018-09-06 17:04] LABS: ALBUMIN 1.8 g/dl (3.4-5.0); ALK PHOS 69 U/L (45-117); ANION GAP 20 MMOL/L (8-16); BILIRUBIN,TOTAL 0.5 mg/dL (0.2-1); CHLORIDE 109 mmol/L (98-107); CO2 12 mmol/L (21-32); CREATININE 4.8 mg/dL (0.55-1.3); GLUCOSE,RANDOM 111 mg/dL (74-106); SGOT/AST 421 U/L (15-37); SGPT/ALT 266 U/L (13-61); SODIUM 140 mmol/L (136-145)
[2018-09-06 17:06] LABS: BLOOD UREA NITROGEN 137 mg/dL (7-18); CALCIUM 5.7 mg/dL (8.5-10.1); POTASSIUM 6.3 mmol/L (3.5-5.1)
[2018-09-06 17:16] LABS: ANISOCYTOSIS 1+; MACROCYTOSIS 1+; PLATELET ESTIMATE INCREASED
[2018-09-06] MEDS ORDERED: SODIUM POLYSTYRENE SULFONATE 15 GM/60 ML BOTTLE PO ONE (17:28)
[2018-09-06] MEDS ORDERED: SODIUM CHLORIDE 0.9% 500 ML INFUS.BAG IV ONE (17:29)
[2018-09-06] MEDS ORDERED: INSULIN REGULAR HUMAN 100 UNITS/ML *VIAL IVPUSH ONE (17:29)
[2018-09-06] MEDS ORDERED: CALCIUM GLUCONATE 10% - 1,000 MG/10 ML VIAL IVPUSH ONE ×2 (17:29→22:04)
[2018-09-06] MEDS ORDERED: DEXTROSE 50%-WATER - 25 GM/50 ML VIAL IVPUSH ONE ×2 (17:30→18:03)
[2018-09-06] MEDS ORDERED: SODIUM BICARBONATE 8.4% 50 MEQ/50 ML DISP.SYRIN IVPUSH ONE (17:30)
[2018-09-06] MEDS ORDERED: ALBUTEROL SO4 0.083% IH SOL 2.5 MG/3 ML VIAL.NEB. NEB ONE ×2 (17:31→17:41)
[2018-09-06] MEDS ORDERED: CALCIUM GLUCONATE 10% - 1,000 MG/10 ML VIAL ONE ×2 (17:41→22:19)
[2018-09-06] MEDS ORDERED: SODIUM BICARBONATE 8.4% - 50 ML ONE (17:41)
[2018-09-06] MEDS ORDERED: DEXTROSE 50%-WATER 25 GM/50 ML DISP.SYRIN ONE ×2 (17:41→18:06)
[2018-09-06] MEDS ORDERED: SODIUM POLYSTYRENE SULFONATE 15 GM/60 ML BOTTLE ONE (17:41)
[2018-09-06] MEDS ORDERED: INSULIN REGULAR HUMAN 100 UNITS/ML *VIAL ONE (17:42)
[2018-09-06] MEDS ORDERED: VANCOMYCIN 1,000 MG in DEXTROSE 5%-WATER - 250 ML IVPB ONE (17:55)
[2018-09-06] MEDS ORDERED: PIPERACILLIN/TAZOB 3.375 GM 3.375 GM in DEXTROSE 5%-WATER - 50 ML IVPB ONE (17:56)
--- NOTE | 2018-09-06 17:59 | PDOC ---
*Physical Exam - Vital Signs Last Vital Signs Temp Pulse Resp BP Pulse Ox 100.9 F H 119 H 16 102/57 L 94 L 09/06/18 16:13 09/06/18 15:12 09/06/18 15:12 09/06/18 15:12 09/06/18 15:12 - Physical Exam Comments: 09/06/18 18:00 altered, disoriented to place and time. knows name. not speaking, dry mucus membranes, pupils reactive and round to light, no pinpoint pupils, no nystagmus. nl conjunctiva, anicteric; neck supple. lungs clear, +tachycardic, abdomen soft obese and diffusely tender. JEFFERSON x4, no focal neuro deficits. No peripheral edema. normal color for ethnicity, very warm to touch. ED Treatment Course - LABORATORY CBC & Chemistry Diagram: 09/09/18 06:00 09/09/18 06:00 - ADDITIONAL ORDERS Additional order review: Laboratory Results 09/06/18 09/06/18 09/06/18 16:04 16:04 15:48 Sodium 140 Potassium 6.3 H* Chloride 109 H Carbon Dioxide 12 L Anion Gap 20 H BUN 137 H* Creatinine 4.8 H Creat Clearance w eGFR 9.29 Random Glucose 111 H Calcium 5.7 L* Total Bilirubin 0.5 AST 421 H ALT 266 H Alkaline Phosphatase 69 Creatine Kinase 9096 H Creatine Kinase Index 0.7 CK-MB (CK-2) 72.4 H Troponin I 0.06 H Total Protein 5.0 L Albumin 1.8 L Urine Color Sushma Urine Appearance Slcloudy Urine pH 5.0 Ur Specific Benoit 1.017 Urine Protein Negative Urine Glucose (UA) Negative Urine Ketones Negative Urine Blood 2+ H Urine Nitrite Negative Urine Bilirubin Negative Urine Urobilinogen Negative Ur Leukocyte Esterase Negative Urine WBC (Auto) 2 Urine RBC (Auto) 1 Urine Mucus Rare Salicylates Opiates Screen Positive A* Methadone Screen Negative Acetaminophen Barbiturate Screen Negative Phencyclidine Screen Negative Ur Amphetamines Screen Negative MDMA (Ecstasy) Screen Negative Benzodiazepines Screen Negative Cocaine Screen Negative U Marijuana (THC) Screen Negative 09/06/18 15:48 Sodium Potassium Chloride Carbon Dioxide Anion Gap BUN Creatinine Creat Clearance w eGFR Random Glucose Calcium Total Bilirubin AST ALT Alkaline Phosphatase Creatine Kinase Creatine Kinase Index CK-MB (CK-2) Troponin I Total Protein Albumin Urine Color Urine Appearance Urine pH Ur Specific Benoit Urine Protein Urine Glucose (UA) Urine Ketones Urine Blood Urine Nitrite Urine Bilirubin Urine Urobilinogen Ur Leukocyte Esterase Urine WBC (Auto) Urine RBC (Auto) Urine Mucus Salicylates 2.6 L Opiates Screen Methadone Screen Acetaminophen 9.8 L Barbiturate Screen Phencyclidine Screen Ur Amphetamines Screen MDMA (Ecstasy) Screen Benzodiazepines Screen Cocaine Screen U Marijuana (THC) Screen 09/06/18 15:48 RBC 3.53 L MCV 79.6 L MCHC 31.6 L RDW 17.3 H MPV 7.7 Neutrophils % 89.7 H D Lymphocytes % 5.2 L D Monocytes % 4.8 Eosinophils % 0.1 D Basophils % 0.2 - Medications Given in the ED: ED Medications Discontinued Medications Generic Name Dose Route Start Last Admin Trade Name Freq PRN Reason Stop Dose Admin Acetaminophen 650 mg 09/06/18 15:56 09/06/18 16:47 Tylenol - PO 09/06/18 15:57 650 mg ONCE ONE Administration Sodium Chloride 1,000 mls @ 1,000 mls/hr 09/06/18 15:30 09/06/18 15:54 Normal Saline - IV 09/06/18 16:29 1,000 mls/hr ASDIR STA Administration Medical Decision Making - Critical Care Time Total Critical Care Time (minutes): 60 (acute renal failure, severe sepsis, electrolyte/metabolic derangements) Critical Care Statement: The care of this patient involved high complexity decision making to prevent further life threatening deterioration of the patient 's condition and/or to evaluate & treat vital organ system(s) failure or risk of failure. - Medical Decision Making 09/06/18 17:53 58 yo female, history of HTN, IDDM, s/p gastric bypass, recurrent anemia, gastric ulcer, possible ischemic colitis, chronic diarrhea, DVT on Eliquis, opiod dependence, s/p L humeral fx, BIB EMS for lethargy/AMS x 3-4 days. +history of opioid abuse. based on [facility] records, missing 80 tablets of percocet x 4 days since her dispensal, most likely consumed gradually over this time. DDx. intra abdominal infection, pancreatitis, hepatitis. opioid overdose/intox. tylenol OD/tox, salicylate tox. UTI, pneumonia. meningitis/encephalitis. Vital signs reviewed, +fever tmax 100.9, normotensive, but +tachycardia 2/2 fevers. borderline hypoxic ~94% Prior notes reviewed, including admissions, discharges and consultations. laboratory results and imaging reviewed, basic labs and lytes notable for normal wbc ct, however Hyper-K to 6, no acute EKG changes; Cr up to 4.8, c/w ELLA /ARF with source of hyper K, as well as severe dehydration. EKG sinus tachycardia, no interval abnormalities, narrow QRS, ST and T wave segments and morphology normal. Nonspecific T wave abnormalities - No Narcan for now, as not apneic or sig hypoxic. alert and verbal to an extent , disoriented but clear lungs. will monitor closely. - treating hyperK, with calcium, insulin 10 units x1, dextrose x2, albuterol nebs, bicarb; no lasix as renal failure. - acute rhabdomyolysis with copious IVF hydration, likely from poor PO intake and immobiliation x several days.. - acute renal failure to be treated with copious fluids. urine lytes and osm obtained. -mcdonald catheter to monitor I/O -no antipyretics due to transaminitis and renal failure, should not get tylenol or nsaids for now; will ice pack for fever control - CT a/p to r/o intra abdominal infection, as tender and looking for source of sepsis - blood and urine cultures pending - CT head to r/o bleed or mass; consider LP in setting of fever/AMS, but covered with abx in meantime - IV vancomycin and zosyn for empiric coverage. -Utox +opioids as expected. -nephrology consultation -[facility] consult for chronic tyl overdose/toxicity, with transaminitis and AMS and clinical symptoms, may require NAC treatment despite not being an acute OD and cannot use the normogram. Poison control center agrees with NAC administration. Dispo: Admit for AMS, infection/sepsis workup, new ELLA, severe dehydration/ electrolyte derangements, transaminitis, acetaminophen toxicity. Discussed results and management plan with family member at bedside, agree with impression and plan - anticipate ICU consultation for higher level of care, given multiple disturbances above as documented.. 09/06/18 18:37 *DC/Admit/Observation/Transfer Diagnosis at time of Disposition: Transaminitis, Hyperkalemia Rhabdomyolysis Qualifiers: Rhabdomyolysis type: non-traumatic Qualified Code(s): M62.82 - Rhabdomyolysis Acute renal failure Qualifiers: Acute renal failure type: unspecified Qualified Code(s): N17.9 - Acute kidney failure, unspecified Fever Qualifiers: Fever type: unspecified Qualified Code(s): R50.9 - Fever, unspecified Sepsis Qualifiers: Sepsis type: sepsis due to unspecified organism Qualified Code(s): A41.9 - Sepsis, unspecified organism Abdominal pain Qualifiers: Abdominal location: left upper quadrant Qualified Code(s): R10.12 - Left upper quadrant pain Acetaminophen toxicity Qualifiers: Encounter type: initial encounter Injury intent: undetermined intent Qualified Code(s): T39.1X4A - Poisoning by 4-Aminophenol derivatives, undetermined, initial encounter - Discharge Dispostion Condition at time of disposition: Guarded Decision to Admit order: Yes - Referrals - Patient Instructions - Post Discharge Activity
[2018-09-06] MEDS ORDERED: VANCOMYCIN 1 GRAM (PRE-DOCKED) 1,000 MG/250 ML BAG IVPB ONE (18:05)
[2018-09-06] MEDS ORDERED: PIPERACILLIN/TAZOB 3.375 GM 3.375 GM/50 ML BAG IVPB ONE (18:06)
--- NOTE | 2018-09-06 19:25 | PDOC ---
*Physical Exam - Vital Signs Last Vital Signs Temp Pulse Resp BP Pulse Ox 100.9 F H 124 H 26 H 112/48 L 100 09/06/18 16:13 09/06/18 18:55 09/06/18 18:55 09/06/18 18:55 09/06/18 18:55 09/06/18 19:09 Patient's care is endorsed to me by Shannon García. This is a 58 YOF with h/o opiate dependence, IDDM, HTN, DVT on Eliquis, who p/w complaint of lethargy, bedbound, not eating, LUQ pain. Her partner brought her in for evaluation after noting much of her newly-prescribed Percocet was missing. The bottle was new, having been filled by her [employer]'s RX on 09/02/18, #90 tabs of 10/325 Percocet, and there were only #10 left, so presumably she took #80 since 09/02/18. Reportedly the patient has a case picker who took a bottle of Percocet away from her a month ago for overuse. She arrived tachycardic, lethargic, febrile A/Ox2 (new deficit). Found to be in rhabdomyolysis, ELLA, hyperkalemic, already given hyperkalemia meds. In for dry CT A/P (cannot receive contrast). She has had 1000 cc UOP measured in [place] bag here. Shannon has spoken with Poison Control. Despite the Tylenol level 9.8 this is treated as a Tylenol overdose, especially since she presumably took the pills over the past ~4 days. She will receive NAC 150 mg/kg IV over first hour, then 50 mg/kg, then 100 mg/kg per protocol. She will need repeat labs 20 hours into the protocol per Poison Control. Needs ICU. Dr. Calderón is on board for the rhabdo/ELLA. She will need maintenance IVF at 150-200cc/hour after the bolus which is currently running. ED Treatment Course - LABORATORY CBC & Chemistry Diagram: 09/06/18 20:00 09/06/18 20:00 - ADDITIONAL ORDERS Additional order review: Laboratory Results 09/06/18 09/06/18 09/06/18 17:22 16:04 16:04 Sodium Potassium Chloride Carbon Dioxide Anion Gap BUN Creatinine Creat Clearance w eGFR Random Glucose Lactic Acid 1.1 Calcium Total Bilirubin AST ALT Alkaline Phosphatase Creatine Kinase Creatine Kinase Index CK-MB (CK-2) Troponin I Total Protein Albumin Urine Color Sushma Urine Appearance Slcloudy Urine pH 5.0 Ur Specific [place] 1.017 Urine Protein Negative Urine Glucose (UA) Negative Urine Ketones Negative Urine Blood 2+ H Urine Nitrite Negative Urine Bilirubin Negative Urine Urobilinogen Negative Ur Leukocyte Esterase Negative Urine WBC (Auto) 2 Urine RBC (Auto) 1 Urine Mucus Rare Salicylates Opiates Screen Positive A* Methadone Screen Negative Acetaminophen Barbiturate Screen Negative Phencyclidine Screen Negative Ur Amphetamines Screen Negative MDMA (Ecstasy) Screen Negative Benzodiazepines Screen Negative Cocaine Screen Negative U Marijuana (THC) Screen Negative 09/06/18 09/06/18 15:48 15:48 Sodium 140 Potassium 6.3 H* Chloride 109 H Carbon Dioxide 12 L Anion Gap 20 H BUN 137 H* Creatinine 4.8 H Creat Clearance w eGFR 9.29 Random Glucose 111 H Lactic Acid Calcium 5.7 L* Total Bilirubin 0.5 AST 421 H ALT 266 H Alkaline Phosphatase 69 Creatine Kinase 9096 H Creatine Kinase Index 0.7 CK-MB (CK-2) 72.4 H Troponin I 0.06 H Total Protein 5.0 L Albumin 1.8 L Urine Color Urine Appearance Urine pH Ur Specific [place] Urine Protein Urine Glucose (UA) Urine Ketones Urine Blood Urine Nitrite Urine Bilirubin Urine Urobilinogen Ur Leukocyte Esterase Urine WBC (Auto) Urine RBC (Auto) Urine Mucus Salicylates 2.6 L Opiates Screen Methadone Screen Acetaminophen 9.8 L Barbiturate Screen Phencyclidine Screen Ur Amphetamines Screen MDMA (Ecstasy) Screen Benzodiazepines Screen Cocaine Screen U Marijuana (THC) Screen 09/06/18 15:48 RBC 3.53 L MCV 79.6 L MCHC 31.6 L RDW 17.3 H MPV 7.7 Neutrophils % 89.7 H D Lymphocytes % 5.2 L D Monocytes % 4.8 Eosinophils % 0.1 D Basophils % 0.2 - Medications Given in the ED: ED Medications Discontinued Medications Generic Name Dose Route Start Last Admin Trade Name Freq PRN Reason Stop Dose Admin Acetaminophen 650 mg 09/06/18 15:56 09/06/18 16:47 Tylenol - PO 09/06/18 15:57 650 mg ONCE ONE Administration Albuterol Sulfate 1 amp 09/06/18 17:31 09/06/18 18:03 Ventolin 0.083% Nebulizer Soln - NEB 09/06/18 17:32 1 amp ONCE ONE Administration Calcium Gluconate 1,000 mg 09/06/18 17:29 09/06/18 18:02 Calcium Gluconate 10% - IVPUSH 09/06/18 17:30 1,000 mg ONCE ONE Administration Dextrose 25 gm 09/06/18 17:30 09/06/18 18:03 D50w (Vial) - IVPUSH 09/06/18 17:31 25 gm NOW ONE Administration Dextrose 25 gm 09/06/18 18:03 09/06/18 18:12 D50w (Vial) - IVPUSH 09/06/18 18:04 25 gm NOW ONE Administration Sodium Chloride 1,000 mls @ 1,000 mls/hr 09/06/18 15:30 09/06/18 15:54 Normal Saline - IV 09/06/18 16:29 1,000 mls/hr ASDIR STA Administration Sodium Chloride 1,000 mls @ 1,000 mls/hr 09/06/18 17:28 09/06/18 18:02 Normal Saline - IV 09/06/18 18:27 1,000 mls/hr ASDIR STA Administration Piperacillin Sod/Tazobactam 50 mls @ 100 mls/hr 09/06/18 17:56 09/06/18 18:12 Sod 3.375 gm/ Dextrose IVPB 09/06/18 18:25 100 mls/hr ONCE ONE Administration Protocol Insulin Human Regular 10 units 09/06/18 17:29 09/06/18 18:02 Novolin R Vial *For Ivpush Or Iv Drip Only* IVPUSH 09/06/18 17:30 10 unit ONCE ONE Administration Sodium Bicarbonate 50 meq 09/06/18 17:30 09/06/18 18:03 Sodium Bicarbonate 8.4% - IVPUSH 09/06/18 17:31 50 meq ONCE ONE Administration Sodium Chloride 1,000 ml 09/06/18 17:29 09/06/18 18:02 Normal Saline - IV 09/06/18 17:30 1,000 ml ONCE ONE Administration Sodium Polystyrene Sulfonate 30 gm 09/06/18 17:28 09/06/18 18:03 Kayexalate - PO 09/06/18 17:29 Not Given ONCE ONE Medical Decision Making - Medical Decision Making I am including all of OSCAR García's note in my MDM given the acuity of the case and the importance of carefully reviewing clinical course of this critically ill patient. "58 yo female, history of HTN, IDDM, s/p gastric bypass, recurrent anemia, gastric ulcer, possible ischemic colitis, chronic diarrhea, DVT on Eliquis, opiod dependence, s/p L humeral fx, BIB EMS after they received call that patient appears lethargic over the past several days, staying in bed mostly and refusing to eat. Pt's boyfriend, Ghassan, at bedside and reports that when EMT came to apartment, they found patient's bottle of percocet with only 10 tablets in it. Significant other states patient was given 90 tablets of percocet () 4 days ago and is now concerned pt might have taken the other 80 tabs over past few days. Per boyfriend, patient has been abusing percocet and in fact last month patient's case picker at [facility] facility (community service program) took away a bottle of narcotics that pt has been prescribed 2/2 concern that pt was taking more that she was supposed to. Pt's pain specialicist , BAN Reeder prescribed 90 tablets on 09/02/18 based on ISTOP report. Patient appears mildly lethargic in ED and oriented x2 (not baseline per BF) but able to give some history and admits that she took tablets but unable to give me any other information regarding medications. Denies that she was trying to hurt herself but unable to tell me why she took so many tablets in just 4 days. Per boyfriend, patient might have had an inpatient psych admission several years ago for unclear reason, but denies any known history of prior suicidal ideation or attempts. Pt continues to deny SI or attempt to me now. States she feels well and denies any medical complaints AMS Based on hx, opiod OD suspected but per d/w ED attg will hold off on narcan at this time as pt alert and only mildly hypoxic to 94% on RA, will also hold off on poison control c/s Infxn also another possibility given low grade fever, tachycardia and mildly depressed BP -02 -IVF -tylenol -labs including vargas-culture -ekg/cxr -CT a/p given LUQ ttp on exam -anticipate admission 09/06/18 17:33 Patient has multiple lab derangements including CK of > 9K w/ creatinine of 4.8 , which is new for patient with BUN of 137 and K of 6.3. Also has hypocalcemia to 5.1. Hyper-K cocktail and IV fluid in progress. Will rpt labs after treatment and c/w renal as per d/w ED attg. + transaminitis, which is new for patient since 08/18. Acetaminophen lvl 9.8 w/ + opiods confirmed on utox. Will c /w poison control for recs at this time. Mild tropenemia of 0.06, m/l demand ischemia vs ACS. Pt reports no chest pain or shortness of breath at this time. Will repeat EKG. Will give dose of broad spectrum abx as d/w ED attg. If no source of infection, pt may need LP given AMS and fever. Possibly need bed on unit 09/06/18 18:15 Case d/w Lizeth at Poison Control, states a soldering machine setter will contact me with recommendations t [phone] 09/06/18 18:35 Per poison control, Acetylcysteine should be initiated Portocol is to initiate 150 mg/kg IV over one hour followed by 50 mg/kg IV over 4 hours, then 100 mg/kg IV over 16 hours totaling 21 hours of treatment. Recommending repeat LFTs and acetaminophen level one hour prior to completion of N-acetylcysteine. Also recommending iron level be drawn 09/06/18 19:[address] Caldernó who wants rpt labs after hyperk cocktail and IVF. . recommending maintenance fluids of 150-200 mL/h. At this point patient signed out to Dr. Alfredo who will order acetylcysteine and repeat LFTs and acetaminophen level one hour prior to completion of treatment. Will also order maintenance fluids as per discussion with renal. Resident to also discuss case w/ blending tank tender DX: Rhabdomyolysis, Acute renal failure, Sepsis, Abdominal pain, Transaminitis, Hyperkalemia, Acetaminophen toxicity" 09/06/18 19:40 Ordered 1st, 2nd, and 3rd doses NAC IVPB as noted above per Poison Control. Also ordered further labs and spoke with CHET Iesha; patient needs coags, EtOH level, ammonia level, repeat CBCD CMP Cardiac panel. 09/06/18 20:49 Patient has multiple system failure, not completely clear this is isolated acetaminophen toxicity. She needs thorough sepsis workup. On repeat exam she has LLQ and suprapubic ttp, abdomen soft. Lungs clear. Heart rapid regular rate with 1/6 systolic murmur. Skin/extremities without BP 104/40 and HR 120 and RR 24 at this time. The patient is A/O to her full name and date, able to state she has abdominal pain but no other pain. She is not able to answer the current year or type of building we are in (keeps repeating her year). She is stable for CT scan at this time and is transported for this. Considering LP if no other obvious source for sepsis. 09/06/18 23:[address] head and abdomen. Small basilar consolidation/effusion c/f early PNA. Repeat rectal temp 100.9. LP performed with clear CSF return, no complication. Sent for CSF studies. Second round of NAC running IVPB. 09/06/18 23:43 The Pt is unsafe for discharge at this time. They require further hospital observation, workup, and treatment. Patient has been accepted to the ICU. Microblog sent to [facility] for admission. Blank Decision to Admit order is placed per ED protocol. 09/07/18 01:20 I spoke with Link Sheridan; Decision to Admit order corrected with Dr. Saini's name. *DC/Admit/Observation/Transfer Diagnosis at time of Disposition: Transaminitis, Hyperkalemia Rhabdomyolysis Qualifiers: Rhabdomyolysis type: non-traumatic Qualified Code(s): M62.82 - Rhabdomyolysis Acute renal failure Qualifiers: Acute renal failure type: unspecified Qualified Code(s): N17.9 - Acute kidney failure, unspecified Fever Qualifiers: Fever type: unspecified Qualified Code(s): R50.9 - Fever, unspecified Sepsis Qualifiers: Sepsis type: sepsis due to unspecified organism Qualified Code(s): A41.9 - Sepsis, unspecified organism Abdominal pain Qualifiers: Abdominal location: left upper quadrant Qualified Code(s): R10.12 - Left upper quadrant pain Acetaminophen toxicity Qualifiers: Encounter type: initial encounter Injury intent: undetermined intent Qualified Code(s): T39.1X4A - Poisoning by 4-Aminophenol derivatives, undetermined, initial encounter - Discharge Dispostion Disposition: HOME Condition at time of disposition: Critical Decision to Admit order: Yes - Referrals - Patient Instructions - Post Discharge Activity
[2018-09-06] MEDS ORDERED: ACETYLCYSTEINE 20% 200MG/ML 30ML VIAL *FOR INJECTION USE ONLY IVPB ONE ×5 (19:35→21:08)
[2018-09-06] MEDS ORDERED: SODIUM CHLORIDE 1,000 ML IV SCH (20:00)
--- NOTE | 2018-09-06 20:05 | CONSULT ---
Consultation: REQUESTING PROVIDER: CONSULT REQUEST: We have been asked to medically evaluate this patient for ( specify). HISTORY OF PRESENT ILLNESS: This is a 58 yo F with PMH of opiate abuse, HTN, IDDM, s/p gastric bypass, recurrent anemia, gastric ulcer, possible ischemic colitis, chronic diarrhea, DVT on Eliquis, who was BIBEMS due to AMS. According to boyfriend, she was prescribed a bottle of Percocet # 90 by pain specialicist PATIENT CARE PROVIDER Luis Reeder 4 days ago (09/02) and appears to have consumed 80 pills (10 left in bottle). As a result she has been lethargic, confused and anorexic x 4 days. On presentation patient is tachycardic 120s, tachypneic 20's, with low grade fever 100.9, but hemodynamically stable. She is orientedx2 and is unable to provide history. She complains of abdominal pain. ED workup tox + for opiates but low acetaminophen level 9.8. Poison control was contacted and recommended actetylcysteine. patient was also found to be hyperkalemic 6.3 (cocktail given in ed), in multiorgan failure with ELLA/rhabldo (creat 4.4/ck 9000) and transaminitis. REVIEW OF SYSTEMS: unable to obtain due to aml PHYSICAL EXAMINATION Vital Signs - 24 hr 09/06/18 09/06/18 09/06/18 15:12 16:13 18:55 Temperature 99.9 F H 100.9 F H Pulse Rate 119 H Pulse Rate [ 124 H Apical] Respiratory 16 26 H Rate Blood Pressure 102/57 L Blood Pressure 112/48 L [Right Arm] O2 Sat by Pulse 94 L 100 Oximetry (%) GENERAL: Awake, lethargic, confused, aaox2, diffuse fine tremor HEAD: Normal with no signs of trauma. EYES: Pupils equal, round and reactive to light, extraocular movements intact, sclera anicteric, conjunctiva clear. No lid lag. no nystagmus EARS, NOSE, THROAT: dry mucous membranes. NECK: supple LUNGS: Breath sounds equal, clear to auscultation bilaterally. HEART: tachy rate and reg rhythm, normal S1 and S2 ABDOMEN: Soft, + tender in LUQ, LLQ, suprapubic areas, not distended, globally decreased bowel sounds, no guarding, no rebound, no masses. MUSCULOSKELETAL: No CVA tenderness. UPPER EXTREMITIES: 2+ pulses, warm, well-perfused. No peripheral edema. LOWER EXTREMITIES: 2+ pulses, warm, well-perfused. No calf tenderness. No peripheral edema. NEUROLOGICAL: difficult to evaluate, doesnt follow commands well. Cranial nerves II-XII grossly intact. strenght 4+/5 b/l in all extremities, fiffuse fine resting tremor. pressed speech. PSYCHIATRIC: confused, lethargic SKIN: Warm, dry Laboratory Results - last 24 hr 09/06/18 09/06/18 09/06/18 15:48 15:48 15:48 WBC 6.9 RBC 3.53 L Hgb 8.9 L Hct 28.1 L MCV 79.6 L MCH 25.2 L MCHC 31.6 L RDW 17.3 H Plt Count 476 H MPV 7.7 Absolute Neuts (auto) 6.2 Neutrophils % 89.7 H D Neutrophils % (Manual) 85.0 H Band Neutrophils % 4.0 Lymphocytes % 5.2 L D Lymphocytes % (Manual) 8.0 D Monocytes % 4.8 Monocytes % (Manual) 3 L Eosinophils % 0.1 D Basophils % 0.2 Nucleated RBC % 0 Hypochromia 1+ Platelet Estimate Increased Platelet Comment No clumping noted Anisocytosis 1+ Macrocytosis 1+ Sodium 140 Potassium 6.3 H* Chloride 109 H Carbon Dioxide 12 L Anion Gap 20 H BUN 137 H* Creatinine 4.8 H Creat Clearance w eGFR 9.29 Random Glucose 111 H Lactic Acid Calcium 5.7 L* Total Bilirubin 0.5 AST 421 H ALT 266 H Alkaline Phosphatase 69 Creatine Kinase 9096 H Creatine Kinase Index 0.7 CK-MB (CK-2) 72.4 H Troponin I 0.06 H Total Protein 5.0 L Albumin 1.8 L Urine Color Urine Appearance Urine pH Ur Specific [place] Urine Protein Urine Glucose (UA) Urine Ketones Urine Blood Urine Nitrite Urine Bilirubin Urine Urobilinogen Ur Leukocyte Esterase Urine WBC (Auto) Urine RBC (Auto) Urine Mucus Salicylates 2.6 L Opiates Screen Methadone Screen Acetaminophen 9.8 L Barbiturate Screen Phencyclidine Screen Ur Amphetamines Screen MDMA (Ecstasy) Screen Benzodiazepines Screen Cocaine Screen U Marijuana (THC) Screen 09/06/18 09/06/18 09/06/18 16:04 16:04 17:22 WBC RBC Hgb Hct MCV MCH MCHC RDW Plt Count MPV Absolute Neuts (auto) Neutrophils % Neutrophils % (Manual) Band Neutrophils % Lymphocytes % Lymphocytes % (Manual) Monocytes % Monocytes % (Manual) Eosinophils % Basophils % Nucleated RBC % Hypochromia Platelet Estimate Platelet Comment Anisocytosis Macrocytosis Sodium Potassium Chloride Carbon Dioxide Anion Gap BUN Creatinine Creat Clearance w eGFR Random Glucose Lactic Acid 1.1 Calcium Total Bilirubin AST ALT Alkaline Phosphatase Creatine Kinase Creatine Kinase Index CK-MB (CK-2) Troponin I Total Protein Albumin Urine Color Sushma Urine Appearance Slcloudy Urine pH 5.0 Ur Specific [place] 1.017 Urine Protein Negative Urine Glucose (UA) Negative Urine Ketones Negative Urine Blood 2+ H Urine Nitrite Negative Urine Bilirubin Negative Urine Urobilinogen Negative Ur Leukocyte Esterase Negative Urine WBC (Auto) 2 Urine RBC (Auto) 1 Urine Mucus Rare Salicylates Opiates Screen Positive A* Methadone Screen Negative Acetaminophen Barbiturate Screen Negative Phencyclidine Screen Negative Ur Amphetamines Screen Negative MDMA (Ecstasy) Screen Negative Benzodiazepines Screen Negative Cocaine Screen Negative U Marijuana (THC) Screen Negative Active Medications Generic Name Dose Route Start Last Admin Trade Name Freq PRN Reason Stop Dose Admin Sodium Chloride 1,000 mls @ 150 mls/hr 09/06/18 20:00 Normal Saline - IV ASDIR YAMILKA ASSESSMENT/PLAN: This is a 58 yo F with PMH of opiate abuse, HTN, IDDM, s/p gastric bypass, recurrent anemia, gastric ulcer, possible ischemic colitis, chronic diarrhea, DVT on Eliquis, who was BIBEMS due to AMS, likely due to percocet OD, fund to be in multiorgan failure. Acetaminophen OD, likely late stage given low serum levels and 4 d long timeline AMS/hepatic encephalopathy hyperkalemia w/o EKG changes hypocalcemia ELLA/rhabdo transaminitis/acetaminophen hepatotoxicity Abd pain sepsis HTN IDDM anemia chronic diarrhea dvt on eliquis -acetaminophen levels low; meaning ingestion is either very recent or occurred days ago. Given multiprgan failure, it likely occurred days ago. Will benefit from acetylcysteine. Will recheck acetaminophen level and TFTs in 12 hr, then 20 hr per poison control -In ED per poison conrol recs, received NAC 150 mg/kg IV x 1 hr, then ordered further doses 50 mg/kg x4hr, then 100 mg/kg x 16hr. -given hepatic failure patient should later be be maintained on acetylcysteine 6.25/kg/hr for mortality benefit -IV fluid resuscitation; s/p liter bolus, then cont @ 200 -r/o coagulopaty f/u INR -f/u ammonia levels -neuro checks q1h -s/p glucose w insulin, calcium gluconate, sodium bicarb, albumin. f/u K, give MI kayexalate -PO Ca -f/u abd CT, altough doubt infection, abd pain is symptom of OD -f/u head ct r/o bleed/cerebral edema -renal on case -NPO -hold basal insulin, ISS, BGM -hold BP meds, borderline hypotension Dispo: We will continue to follow the patient. Thank you for this consultative opportunity. Problem List - Problems (1) ARF (acute renal failure) Code(s): N17.9 - ACUTE KIDNEY FAILURE, UNSPECIFIED Qualifiers: Acute renal failure type: unspecified Qualified Code(s): N17.9 - Acute kidney failure, unspecified (2) Acetaminophen toxicity Code(s): T39.1X1A - POISONING BY 4-AMINOPHENOL DERIVATIVES, ACCIDENTAL, INIT Qualifiers: Encounter type: initial encounter Injury intent: undetermined intent Qualified Code(s): T39.1X4A - Poisoning by 4-Aminophenol derivatives, undetermined, initial encounter (3) Fever Code(s): R50.9 - FEVER, UNSPECIFIED Qualifiers: Fever type: unspecified Qualified Code(s): R50.9 - Fever, unspecified (4) Hyperkalemia Code(s): E87.5 - HYPERKALEMIA (5) Rhabdomyolysis Code(s): M62.82 - RHABDOMYOLYSIS Qualifiers: Rhabdomyolysis type: non-traumatic Qualified Code(s): M62.82 - Rhabdomyolysis (6) Sepsis Code(s): A41.9 - SEPSIS, UNSPECIFIED ORGANISM Qualifiers: Sepsis type: sepsis due to unspecified organism Qualified Code(s): A41.9 - Sepsis, unspecified organism (7) Transaminitis Code(s): R74.0 - NONSPEC ELEV OF LEVELS OF TRANSAMNS & LACTIC ACID DEHYDRGNSE (8) Abdominal pain Code(s): R10.9 - UNSPECIFIED ABDOMINAL PAIN Qualifiers: Abdominal location: left upper quadrant Qualified Code(s): R10.12 - Left upper quadrant pain (9) Anemia Code(s): D64.9 - ANEMIA, UNSPECIFIED Qualifiers: Anemia type: unspecified type Qualified Code(s): D64.9 - Anemia, unspecified (10) Chronic diarrhea Code(s): K52.9 - NONINFECTIVE GASTROENTERITIS AND COLITIS, UNSPECIFIED (11) Diabetes Code(s): E11.9 - TYPE 2 DIABETES MELLITUS WITHOUT COMPLICATIONS (12) GERD (gastroesophageal reflux disease) Code(s): K21.9 - GASTRO-ESOPHAGEAL REFLUX DISEASE WITHOUT ESOPHAGITIS (13) Hyperlipemia Code(s): E78.5 - HYPERLIPIDEMIA, UNSPECIFIED (14) Opioid abuse Code(s): F11.10 - OPIOID ABUSE, UNCOMPLICATED Visit type - Emergency Visit Emergency Visit: Yes Care time: The patient presented to the Emergency Department on the above date and was hospitalized for further evaluation of their emergent condition. - New Patient This patient is new to me today: Yes Date on this admission: 09/07/18 - Critical Care Critical Care patient: Yes Total Critical Care Time (in minutes): 45 Critical Care Statement: The care of this patient involved high complexity decision making to prevent further life threatening deterioration of the patient 's condition and/or to evaluate & treat vital organ system(s) failure or risk of failure.
[2018-09-06 20:23] LABS: BASO % 0.1 % (0-2.0); HEMATOCRIT 25.5 % (32.4-45.2); LYMPH % 7.2 % (8-40); MCH 25.2 pg (25.7-33.7); MCHC 31.6 g/dl (32.0-36.0); MEAN CELL VOLUME 79.7 fl (80-96); MEAN PLT VOLUME 7.6 fl (7.5-11.1); MONO % 8.8 % (3.8-10.2); NEUT % 82.9 % (42.8-82.8); PLATELET COUNT 400 K/MM3 (134-434); RBC 3.19 M/mm3 (3.60-5.2); RDW 17.3 % (11.6-15.6); WHITE BLOOD COUNT 5.3 K/mm3 (4.0-10.0)
[2018-09-06 21:26] LABS: ANISOCYTOSIS 1+; MACROCYTOSIS 1+; PLATELET ESTIMATE ADEQUATE
[2018-09-06 21:40] LABS: ALBUMIN 1.6 g/dl (3.4-5.0); ALK PHOS 59 U/L (45-117); ANION GAP 16 MMOL/L (8-16); BILIRUBIN,TOTAL 0.5 mg/dL (0.2-1); CHLORIDE 115 mmol/L (98-107); CO2 13 mmol/L (21-32); CREATININE 4.4 mg/dL (0.55-1.3); GLUCOSE,RANDOM 161 mg/dL (74-106); LIPASE 79 U/L (73-393); POTASSIUM 5.1 mmol/L (3.5-5.1); SGOT/AST 340 U/L (15-37); SGPT/ALT 227 U/L (13-61); SODIUM 143 mmol/L (136-145); TOT PROT 4.4 g/dl (6.4-8.2)
[2018-09-06 21:42] LABS: BLOOD UREA NITROGEN 125 mg/dL (7-18); CALCIUM 5.5 mg/dL (8.5-10.1)
[2018-09-06] MEDS ORDERED: LIDOCAINE HCL 2% (20ML MULTI-DOSE VIAL) NR ONE (22:53)
[2018-09-06 23:56] LABS: CSF APPEARANCE CLEAR; CSF COLOR COLORLESS; CSF WBC 2
[2018-09-06 23:57] LABS: GLUCOSE,CSF 111 mg/dL (40-70)
[2018-09-07 00:08] LABS: INR 1.69 (0.83-1.09)
[2018-09-07 00:11] LABS: ACTIVATED PTT 28.9 SECONDS (25.2-36.5)
[2018-09-07 00:13] LABS: ARTERIAL BLD GAS O2 SATURATION 42.8 % (90-98.9); ARTERIAL BLOOD GAS BASE EXCESS -12.1 meq/l (-2-2); ARTERIAL BLOOD GAS pH 7.32 (7.35-7.45); CARBOXYHEMOGLOBIN 1.3 gm% (0.5-2.0)
[2018-09-07 00:19] LABS: ALLENS TEST POSITIVE
[2018-09-07 00:21] LABS: ARTERIAL BLOOD GAS PO2 30.4 mmHg (80-100)
[2018-09-07] MEDS: CALCIUM 500MG/VIT-D 200 UNITS COMBO TABLET (FP) PO SCH ×3 (00:32→23:22)
--- NOTE | 2018-09-07 00:53 | PN ---
Teaching Attending Note Name of Resident: Link Sheridan ATTENDING PHYSICIAN STATEMENT I saw and evaluated the patient. I reviewed the resident's note and discussed the case with the resident. I agree with the resident's findings and plan as documented. SUBJECTIVE: Patient is a 58 year old woman with PMH of opiate abuse, HTN, insulin-treated DM , s/p gastric bypass, recurrent anemia, gastric ulcer, possible ischemic colitis , chronic diarrhea, DVT on Eliquis, who was BIBEMS due to AMS. According to boyfriend, she was prescribed a bottle of Percocet # 90 by pain specialicist COUNSELING AIDE Luis Reeder 4 days ago (09/02) and appears to have consumed 80 pills (10 left in bottle). As a result she has been lethargic, confused and anorexic x 4 days. On presentation patient is tachycardic 120s, tachypneic 20's, with low grade fever 100.9, but hemodynamically stable. She is oriented x2 and is unable to provide history. She complains of abdominal pain. ED workup tox + for opiates but low acetaminophen level 9.8. Poison control was contacted and recommended actetylcysteine. patient was also found to be hyperkalemic 6.3 (cocktail given in ed), in multiorgan failure with ELLA/rhabldo (creat 4.4/ck 9000) and transaminitis. OBJECTIVE: Lethargic Vital Signs Period Temp Pulse Resp BP Sys/Funes Pulse Ox Last 24 Hr 99.9 F-100.9 F 89-124 16-26 99-112/46-57 94-100 HEENT: No Jaundice, eye redness or discharge, PERRLA, EOMI. Normocephalic, atraumatic. External ears are normal. No nasal discharge. Neck: Supple, nontender. No palpable adenopathy or thyromegaly. No JVD Chest: Good effort. Clear to auscultation and percussion. Heart: Regular. No S3, rub or murmur Abdomen: Not distended, soft, nontender and no HSM. No rebound or guarding. Normoactive bowel sounds. Ext: Peripheral pulses intact. No leg edema. Skin: Warm and dry. No petechiae, rash or ecchymosis. Neuro: Alert. Oriented to person and place; not following commands; just stares. CN 2-12 grossly intact. Sensation grossly intact in all four extremities and DTR are symmetric. Current Medications Generic Name Dose Route Start Last Admin Trade Name Silvia PRN Reason Stop Dose Admin Calcitriol 0.5 mcg 09/07/18 22:30 Rocaltrol - PO 09/07/18 22:31 ONCE ONE Calcium Carbonate/Cholecalciferol 2 tab 09/06/18 22:15 09/07/18 00:32 Os-Willy 500+D - PO 2 tab BID YAMILKA Administration Sodium Chloride 1,000 mls @ 150 mls/hr 09/06/18 20:00 09/06/18 22:12 Normal Saline - IV 150 mls/hr ASDIR YAMILKA Administration Insulin Aspart 1 vial 09/07/18 02:00 Novolog Vial Sliding Scale - SQ Q4HPO YAMILKA Protocol Home Medications Medication Instructions Recorded Glimepiride [Amaryl -] 4 mg PO BID 10/26/12 Cholecalciferol (Vitamin D3) 2,000 unit PO DAILY 07/14/14 [Vitamin D3] Fenofibrate Nanocrystallized 145 mg PO DAILY 07/14/14 [Tricor] Insulin Lispro [Humalog] 5 unit SQ AC 07/14/14 Multivitamins [Multivit ([facility] 1 tab PO DAILY 07/14/14 Formulary)] Acarbose [Precose -] 25 mg PO TID 06/25/18 Duloxetine HCl [Cymbalta] 30 mg PO DAILY 06/25/18 Omeprazole 20 mg PO DAILY 06/27/18 Ferrous Sulfate [Feosol] 325 mg PO DAILY #30 ud 07/15/18 Insulin Aspart [Novolog Flexpen] See Protocol SQ ACHS #5 insuln.pen 07/15/18 Mesalamine [Asacol HD -] 800 mg PO TID #60 tablet. 07/15/18 Oxycodone HCl 5 mg PO Q6H #8 tablet MDD 2 07/15/18 Apixaban [Eliquis] 5 mg PO BID #60 tablet 08/06/18 Lisinopril 2.5 mg PO DAILY #30 tablet 08/06/18 Abnormal Lab Results 09/06/18 09/06/18 09/06/18 15:48 15:48 15:48 RBC 3.53 L Hgb 8.9 L Hct 28.1 L MCV 79.6 L MCH 25.2 L MCHC 31.6 L RDW 17.3 H Plt Count 476 H Neutrophils % 89.7 H D Neutrophils % (Manual) 85.0 H Lymphocytes % 5.2 L D Monocytes % (Manual) 3 L PT with INR INR ABG pH ABG pCO2 at Pt Temp ABG pO2 at Pt Temp ABG HCO3 ABG O2 Sat (Measured) ABG O2 Content ABG Base Excess Potassium 6.3 H* Chloride 109 H Carbon Dioxide 12 L Anion Gap 20 H BUN 137 H* Creatinine 4.8 H Random Glucose 111 H Serum Osmolality Calcium 5.7 L* AST 421 H ALT 266 H Ammonia Creatine Kinase 9096 H CK-MB (CK-2) 72.4 H Troponin I 0.06 H Total Protein 5.0 L Albumin 1.8 L Urine Blood Ur Random Sodium Ur Random Chloride CSF Glucose CSF Total Protein Salicylates 2.6 L Opiates Screen Acetaminophen 9.8 L 09/06/18 09/06/18 09/06/18 16:04 16:04 20:00 RBC Hgb Hct MCV MCH MCHC RDW Plt Count Neutrophils % Neutrophils % (Manual) Lymphocytes % Monocytes % (Manual) PT with INR INR ABG pH ABG pCO2 at Pt Temp ABG pO2 at Pt Temp ABG HCO3 ABG O2 Sat (Measured) ABG O2 Content ABG Base Excess Potassium Chloride Carbon Dioxide Anion Gap BUN Creatinine Random Glucose Serum Osmolality Calcium AST ALT Ammonia Creatine Kinase CK-MB (CK-2) Troponin I Total Protein Albumin Urine Blood 2+ H Ur Random Sodium 25 L Ur Random Chloride 28 L CSF Glucose CSF Total Protein Salicylates Opiates Screen Positive A* Acetaminophen 09/06/18 09/06/18 09/06/18 20:00 20:00 20:00 RBC 3.19 L Hgb 8.0 L Hct 25.5 L MCV 79.7 L MCH 25.2 L MCHC 31.6 L RDW 17.3 H Plt Count Neutrophils % 82.9 H Neutrophils % (Manual) Lymphocytes % 7.2 L D Monocytes % (Manual) 2 L PT with INR INR ABG pH ABG pCO2 at Pt Temp ABG pO2 at Pt Temp ABG HCO3 ABG O2 Sat (Measured) ABG O2 Content ABG Base Excess Potassium Chloride Carbon Dioxide Anion Gap BUN Creatinine Random Glucose Serum Osmolality 341 H Calcium AST ALT Ammonia < 10 L Creatine Kinase CK-MB (CK-2) Troponin I Total Protein Albumin Urine Blood Ur Random Sodium Ur Random Chloride CSF Glucose CSF Total Protein Salicylates Opiates Screen Acetaminophen 09/06/18 09/06/18 09/06/18 20:00 22:28 22:28 RBC Hgb Hct MCV MCH MCHC RDW Plt Count Neutrophils % Neutrophils % (Manual) Lymphocytes % Monocytes % (Manual) PT with INR 20.00 H INR 1.69 H ABG pH ABG pCO2 at Pt Temp ABG pO2 at Pt Temp ABG HCO3 ABG O2 Sat (Measured) ABG O2 Content ABG Base Excess Potassium Chloride 115 H Carbon Dioxide 13 L Anion Gap BUN 125 H* Creatinine 4.4 H Random Glucose 161 H Serum Osmolality Calcium 5.5 L* AST 340 H ALT 227 H Ammonia Creatine Kinase 8182 H CK-MB (CK-2) 56.3 H Troponin I 0.06 H Total Protein 4.4 L Albumin 1.6 L Urine Blood Ur Random Sodium Ur Random Chloride CSF Glucose 111 H CSF Total Protein 53 H Salicylates Opiates Screen Acetaminophen 09/07/18 00:02 RBC Hgb Hct MCV MCH MCHC RDW Plt Count Neutrophils % Neutrophils % (Manual) Lymphocytes % Monocytes % (Manual) PT with INR INR ABG pH 7.32 L ABG pCO2 at Pt Temp 25.0 L ABG pO2 at Pt Temp 30.4 L* D ABG HCO3 12.6 L* ABG O2 Sat (Measured) 42.8 L* ABG O2 Content 4.0 L* ABG Base Excess -12.1 L* Potassium Chloride Carbon Dioxide Anion Gap BUN Creatinine Random Glucose Serum Osmolality Calcium AST ALT Ammonia Creatine Kinase CK-MB (CK-2) Troponin I Total Protein Albumin Urine Blood Ur Random Sodium Ur Random Chloride CSF Glucose CSF Total Protein Salicylates Opiates Screen Acetaminophen ASSESSMENT AND PLAN: 1. Tylenol OD/Sepsis/AMS - Has multiorgan injury and rhabdomyolysis likely due to tylenol toxicity. Being manage in the ICU according to the protocol from Poison control center - getting acetylcysteine and IV fluids. Sepsis workup done , though infection is unlikely, she has been started on vanco and zosyn. CSF analysis thusfar negative for infection. Will hold the Eliquis used for DVT if kidney function does not begin to improve in 24-36 hours. 2. DM - For now, we will hold the home diabetes drugs and implement sliding scale insulin regimen. Provide comprehensive diabetes care with patient teaching and counseling about the importance of euglycemia, eye care and foot care. 3. ARF with metabolic acidosis - Likely due to rhabdomyolysis and tylenol OD. Got acute measures for hyperkalemia and IV Ca gluconate. Will check phosphate, get kidney sonogram and continue to monitor urine output, electrolytes and CPK. Consult nephrology and avoid nephrotoxic agents such as NSAIDS, aminoglycosides , contrast dyes and certain Alternative medicine products. 4. Low MCV Anemia - Multifactorial. Likely predates current events. Will do basic anemia work up including serial stool guaiacs, reticulocyte count and iron studies. 5. DVT prophylaxis - On Eliquis 6. Advance directives - Full code
--- NOTE | 2018-09-07 01:11 | HP ---
CHIEF COMPLAINT: PCP: Angie HISTORY OF PRESENT ILLNESS: Pt is a poor historian, history taken from ED staff and previous medical records. Pt is a 58 y/o lady with a significant past medical history of opiate abuse, HTN, IDDM, s/p gastric bypass, recurrent anemia, gastric ulcer, possible ischemic colitis, chronic diarrhea, DVT on Eliquis who was brought in to [facility] by ambulance yesterday evening (Aug) 2/2 altered mental status and poor PO intake. Pt's boyfriend noticed that pt's prescribed bottle of Percocet was nearly empty with only 10 pills left (initial prescription for 90 pills). Pt 's pain specialist apparently prescribed 90 tablets on 09/02/18 according to previous documentation. On clinical presentation, pt was initially tachycardic in the 120s, tachypneic in the 20's, and had a low grade fever 100.9. Labs drawn in the ED revealed rhabdomyolysis, ELLA, transaminitis, and hyperkalemia. Poison control center contacted by ED. Pt endorses left upper quadrant pain. ER course was notable for: (1) K+ 6.3 (2) BUN 137 (3) Ca+ 5.7, Acetominophen 9.8 L Recent Travel: PAST MEDICAL HISTORY: Per HPI PAST SURGICAL HISTORY: Gastric bypass Cholecystecomy Unspecified sinus surgery Social History: Smoking:Denies Per previous records Alcohol:Denies per previous Records Drugs: Percocet for pain control Family History: Allergies No Known Allergies Allergy (Verified 09/06/18 15:25) HOME MEDICATIONS: Home Medications Medication Instructions Recorded Glimepiride [Amaryl -] 4 mg PO BID 10/26/12 Cholecalciferol (Vitamin D3) 2,000 unit PO DAILY 07/14/14 [Vitamin D3] Fenofibrate Nanocrystallized 145 mg PO DAILY 07/14/14 [Tricor] Insulin Lispro [Humalog] 5 unit SQ AC 07/14/14 Multivitamins [Multivit ([facility] 1 tab PO DAILY 07/14/14 Formulary)] Acarbose [Precose -] 25 mg PO TID 06/25/18 Duloxetine HCl [Cymbalta] 30 mg PO DAILY 06/25/18 Omeprazole 20 mg PO DAILY 06/27/18 Ferrous Sulfate [Feosol] 325 mg PO DAILY #30 ud 07/15/18 Insulin Aspart [Novolog Flexpen] See Protocol SQ ACHS #5 insuln.pen 07/15/18 Mesalamine [Asacol HD -] 800 mg PO TID #60 tablet. 07/15/18 Oxycodone HCl 5 mg PO Q6H #8 tablet MDD 2 07/15/18 Apixaban [Eliquis] 5 mg PO BID #60 tablet 08/06/18 Lisinopril 2.5 mg PO DAILY #30 tablet 08/06/18 REVIEW OF SYSTEMS Unable to obtain ROS. PHYSICAL EXAMINATION Vital Signs - 24 hr 09/06/18 09/06/18 09/06/18 15:12 16:13 18:55 Temperature 99.9 F H 100.9 F H Pulse Rate 119 H Pulse Rate [ 124 H Apical] Respiratory 16 26 H Rate Blood Pressure 102/57 L Blood Pressure 112/48 L [Right Arm] O2 Sat by Pulse 94 L 100 Oximetry (%) 09/06/18 09/06/18 22:13 23:58 Temperature 100.3 F H Pulse Rate Pulse Rate [ 89 Apical] Respiratory 20 Rate Blood Pressure Blood Pressure 99/46 L [Right Arm] O2 Sat by Pulse 97 94 L Oximetry (%) GENERAL: AAOx2. HEAD: NC/AT EYES: PERRLA, EOMI EARS, NOSE, THROAT: MMM NECK: Supple, no jvd, no thyromegaly LUNGS:CTA B/L No wheezing, rale,s or rhonchi appreciated HEART: RRR no MRG S1 S2 ABDOMEN: Obese, ND,TTP LUQ, BS hypoactive MUSCULOSKELETAL: FROM throughout UPPER EXTREMITIES: No CCE LOWER EXTREMITIES: No CCE, no cracks or breaks in skin of feet, no onychomycosis NEUROLOGICAL: Not responsive to commands, confused. No focal Neuro deficits appreciated SKIN: No rashes appreciated Laboratory Results - last 24 hr 09/06/18 09/06/18 09/06/18 15:48 15:48 15:48 WBC 6.9 RBC 3.53 L Hgb 8.9 L Hct 28.1 L MCV 79.6 L MCH 25.2 L MCHC 31.6 L RDW 17.3 H Plt Count 476 H MPV 7.7 Absolute Neuts (auto) 6.2 Neutrophils % 89.7 H D Neutrophils % (Manual) 85.0 H Band Neutrophils % 4.0 Lymphocytes % 5.2 L D Lymphocytes % (Manual) 8.0 D Monocytes % 4.8 Monocytes % (Manual) 3 L Eosinophils % 0.1 D Basophils % 0.2 Nucleated RBC % 0 Hypochromia 1+ Platelet Estimate Increased Platelet Comment No clumping noted Anisocytosis 1+ Macrocytosis 1+ PT with INR INR PTT (Actin FS) Puncture Site ABG pH ABG pCO2 at Pt Temp ABG pO2 at Pt Temp ABG HCO3 ABG O2 Sat (Measured) ABG O2 Content ABG Base Excess Josue Test Carboxyhemoglobin Methemoglobin O2 Delivery Device Oxygen Flow Rate Sodium 140 Potassium 6.3 H* Chloride 109 H Carbon Dioxide 12 L Anion Gap 20 H BUN 137 H* Creatinine 4.8 H Creat Clearance w eGFR 9.29 POC Glucometer Random Glucose 111 H Serum Osmolality Lactic Acid Calcium 5.7 L* Total Bilirubin 0.5 AST 421 H ALT 266 H Alkaline Phosphatase 69 Ammonia Creatine Kinase 9096 H Creatine Kinase Index 0.7 CK-MB (CK-2) 72.4 H Troponin I 0.06 H Total Protein 5.0 L Albumin 1.8 L Lipase Urine Color Urine Appearance Urine pH Ur Specific [place] Urine Protein Urine Glucose (UA) Urine Ketones Urine Blood Urine Nitrite Urine Bilirubin Urine Urobilinogen Ur Leukocyte Esterase Urine WBC (Auto) Urine RBC (Auto) Urine Mucus Urine Osmolality Ur Random Sodium Ur Random Potassium Ur Random Chloride CSF Appearance CSF Color CSF WBC CSF RBC CSF Neutrophils CSF Lymphocytes CSF Eosinophils CSF Basophils CSF Macrophages CSF Plasma Cells CSF Diff Comment CSF Comment CSF Glucose CSF Total Protein Salicylates 2.6 L Opiates Screen Methadone Screen Acetaminophen 9.8 L Barbiturate Screen Phencyclidine Screen Ur Amphetamines Screen MDMA (Ecstasy) Screen Benzodiazepines Screen Cocaine Screen U Marijuana (THC) Screen Alcohol, Quantitative 09/06/18 09/06/18 09/06/18 16:04 16:04 17:22 WBC RBC Hgb Hct MCV MCH MCHC RDW Plt Count MPV Absolute Neuts (auto) Neutrophils % Neutrophils % (Manual) Band Neutrophils % Lymphocytes % Lymphocytes % (Manual) Monocytes % Monocytes % (Manual) Eosinophils % Basophils % Nucleated RBC % Hypochromia Platelet Estimate Platelet Comment Anisocytosis Macrocytosis PT with INR INR PTT (Actin FS) Puncture Site ABG pH ABG pCO2 at Pt Temp ABG pO2 at Pt Temp ABG HCO3 ABG O2 Sat (Measured) ABG O2 Content ABG Base Excess Josue Test Carboxyhemoglobin Methemoglobin O2 Delivery Device Oxygen Flow Rate Sodium Potassium Chloride Carbon Dioxide Anion Gap BUN Creatinine Creat Clearance w eGFR POC Glucometer Random Glucose Serum Osmolality Lactic Acid 1.1 Calcium Total Bilirubin AST ALT Alkaline Phosphatase Ammonia Creatine Kinase Creatine Kinase Index CK-MB (CK-2) Troponin I Total Protein Albumin Lipase Urine Color Sushma Urine Appearance Slcloudy Urine pH 5.0 Ur Specific [place] 1.017 Urine Protein Negative Urine Glucose (UA) Negative Urine Ketones Negative Urine Blood 2+ H Urine Nitrite Negative Urine Bilirubin Negative Urine Urobilinogen Negative Ur Leukocyte Esterase Negative Urine WBC (Auto) 2 Urine RBC (Auto) 1 Urine Mucus Rare Urine Osmolality Ur Random Sodium Ur Random Potassium Ur Random Chloride CSF Appearance CSF Color CSF WBC CSF RBC CSF Neutrophils CSF Lymphocytes CSF Eosinophils CSF Basophils CSF Macrophages CSF Plasma Cells CSF Diff Comment CSF Comment CSF Glucose CSF Total Protein Salicylates Opiates Screen Positive A* Methadone Screen Negative Acetaminophen Barbiturate Screen Negative Phencyclidine Screen Negative Ur Amphetamines Screen Negative MDMA (Ecstasy) Screen Negative Benzodiazepines Screen Negative Cocaine Screen Negative U Marijuana (THC) Screen Negative Alcohol, Quantitative 09/06/18 09/06/18 09/06/18 20:00 20:00 20:00 WBC RBC Hgb Hct MCV MCH MCHC RDW Plt Count MPV Absolute Neuts (auto) Neutrophils % Neutrophils % (Manual) Band Neutrophils % Lymphocytes % Lymphocytes % (Manual) Monocytes % Monocytes % (Manual) Eosinophils % Basophils % Nucleated RBC % Hypochromia Platelet Estimate Platelet Comment Anisocytosis Macrocytosis PT with INR INR PTT (Actin FS) Puncture Site ABG pH ABG pCO2 at Pt Temp ABG pO2 at Pt Temp ABG HCO3 ABG O2 Sat (Measured) ABG O2 Content ABG Base Excess Josue Test Carboxyhemoglobin Methemoglobin O2 Delivery Device Oxygen Flow Rate Sodium Potassium Chloride Carbon Dioxide Anion Gap BUN Creatinine Creat Clearance w eGFR POC Glucometer Random Glucose Serum Osmolality 341 H Lactic Acid Calcium Total Bilirubin AST ALT Alkaline Phosphatase Ammonia Creatine Kinase Creatine Kinase Index CK-MB (CK-2) Troponin I Total Protein Albumin Lipase Urine Color Urine Appearance Urine pH Ur Specific [place] Urine Protein Urine Glucose (UA) Urine Ketones Urine Blood Urine Nitrite Urine Bilirubin Urine Urobilinogen Ur Leukocyte Esterase Urine WBC (Auto) Urine RBC (Auto) Urine Mucus Urine Osmolality 363 Ur Random Sodium 25 L Ur Random Potassium 52.0 Ur Random Chloride 28 L CSF Appearance CSF Color CSF WBC CSF RBC CSF Neutrophils CSF Lymphocytes CSF Eosinophils CSF Basophils CSF Macrophages CSF Plasma Cells CSF Diff Comment CSF Comment CSF Glucose CSF Total Protein Salicylates Opiates Screen Methadone Screen Acetaminophen Barbiturate Screen Phencyclidine Screen Ur Amphetamines Screen MDMA (Ecstasy) Screen Benzodiazepines Screen Cocaine Screen U Marijuana (THC) Screen Alcohol, Quantitative 09/06/18 09/06/18 09/06/18 20:00 20:00 20:00 WBC 5.3 RBC 3.19 L Hgb 8.0 L Hct 25.5 L MCV 79.7 L MCH 25.2 L MCHC 31.6 L RDW 17.3 H Plt Count 400 MPV 7.6 Absolute Neuts (auto) 4.4 Neutrophils % 82.9 H Neutrophils % (Manual) 76.0 Band Neutrophils % 4.0 Lymphocytes % 7.2 L D Lymphocytes % (Manual) 8.0 Monocytes % 8.8 D Monocytes % (Manual) 2 L Eosinophils % 1.0 D Basophils % 0.1 Nucleated RBC % 0 Hypochromia 1+ Platelet Estimate Adequate Platelet Comment No clumping noted Anisocytosis 1+ Macrocytosis 1+ PT with INR INR PTT (Actin FS) Puncture Site ABG pH ABG pCO2 at Pt Temp ABG pO2 at Pt Temp ABG HCO3 ABG O2 Sat (Measured) ABG O2 Content ABG Base Excess Josue Test Carboxyhemoglobin Methemoglobin O2 Delivery Device Oxygen Flow Rate Sodium 143 Potassium 5.1 Chloride 115 H Carbon Dioxide 13 L Anion Gap 16 BUN 125 H* Creatinine 4.4 H Creat Clearance w eGFR 10.27 POC Glucometer Random Glucose 161 H Serum Osmolality Lactic Acid Calcium 5.5 L* Total Bilirubin 0.5 AST 340 H ALT 227 H Alkaline Phosphatase 59 Ammonia < 10 L Creatine Kinase 8182 H Creatine Kinase Index 0.6 CK-MB (CK-2) 56.3 H Troponin I 0.06 H Total Protein 4.4 L Albumin 1.6 L Lipase 79 Urine Color Urine Appearance Urine pH Ur Specific [place] Urine Protein Urine Glucose (UA) Urine Ketones Urine Blood Urine Nitrite Urine Bilirubin Urine Urobilinogen Ur Leukocyte Esterase Urine WBC (Auto) Urine RBC (Auto) Urine Mucus Urine Osmolality Ur Random Sodium Ur Random Potassium Ur Random Chloride CSF Appearance CSF Color CSF WBC CSF RBC CSF Neutrophils CSF Lymphocytes CSF Eosinophils CSF Basophils CSF Macrophages CSF Plasma Cells CSF Diff Comment CSF Comment CSF Glucose CSF Total Protein Salicylates Opiates Screen Methadone Screen Acetaminophen Barbiturate Screen Phencyclidine Screen Ur Amphetamines Screen MDMA (Ecstasy) Screen Benzodiazepines Screen Cocaine Screen U Marijuana (THC) Screen Alcohol, Quantitative < 3.0 09/06/18 09/06/18 09/06/18 22:28 22:28 23:35 WBC RBC Hgb Hct MCV MCH MCHC RDW Plt Count MPV Absolute Neuts (auto) Neutrophils % Neutrophils % (Manual) Band Neutrophils % Lymphocytes % Lymphocytes % (Manual) Monocytes % Monocytes % (Manual) Eosinophils % Basophils % Nucleated RBC % Hypochromia Platelet Estimate Platelet Comment Anisocytosis Macrocytosis PT with INR 20.00 H INR 1.69 H PTT (Actin FS) 28.9 Puncture Site ABG pH ABG pCO2 at Pt Temp ABG pO2 at Pt Temp ABG HCO3 ABG O2 Sat (Measured) ABG O2 Content ABG Base Excess Josue Test Carboxyhemoglobin Methemoglobin O2 Delivery Device Oxygen Flow Rate Sodium Potassium Chloride Carbon Dioxide Anion Gap BUN Creatinine Creat Clearance w eGFR POC Glucometer Random Glucose Serum Osmolality Lactic Acid Calcium Total Bilirubin AST ALT Alkaline Phosphatase Ammonia Creatine Kinase Creatine Kinase Index CK-MB (CK-2) Troponin I Total Protein Albumin Lipase Urine Color Urine Appearance Urine pH Ur Specific [place] Urine Protein Urine Glucose (UA) Urine Ketones Urine Blood Urine Nitrite Urine Bilirubin Urine Urobilinogen Ur Leukocyte Esterase Urine WBC (Auto) Urine RBC (Auto) Urine Mucus Urine Osmolality Ur Random Sodium Ur Random Potassium Ur Random Chloride CSF Appearance Clear CSF Color Colorless CSF WBC 2 CSF RBC 7 CSF Neutrophils No Result Required. CSF Lymphocytes No Result Required. CSF Eosinophils No Result Required. CSF Basophils No Result Required. CSF Macrophages No Result Required. CSF Plasma Cells No Result Required. CSF Diff Comment No Result Required. CSF Comment No Result Required. CSF Glucose 111 H CSF Total Protein 53 H Salicylates Opiates Screen Methadone Screen Acetaminophen Barbiturate Screen Phencyclidine Screen Ur Amphetamines Screen MDMA (Ecstasy) Screen Benzodiazepines Screen Cocaine Screen U Marijuana (THC) Screen Alcohol, Quantitative 09/06/18 09/07/18 23:53 00:02 WBC RBC Hgb Hct MCV MCH MCHC RDW Plt Count MPV Absolute Neuts (auto) Neutrophils % Neutrophils % (Manual) Band Neutrophils % Lymphocytes % Lymphocytes % (Manual) Monocytes % Monocytes % (Manual) Eosinophils % Basophils % Nucleated RBC % Hypochromia Platelet Estimate Platelet Comment Anisocytosis Macrocytosis PT with INR INR PTT (Actin FS) Puncture Site Right brachial ABG pH 7.32 L ABG pCO2 at Pt Temp 25.0 L ABG pO2 at Pt Temp 30.4 L* D ABG HCO3 12.6 L* ABG O2 Sat (Measured) 42.8 L* ABG O2 Content 4.0 L* ABG Base Excess -12.1 L* Josue Test Positive Carboxyhemoglobin 1.3 Methemoglobin 1.2 O2 Delivery Device Nasal Oxygen Flow Rate 2l Sodium Potassium Chloride Carbon Dioxide Anion Gap BUN Creatinine Creat Clearance w eGFR POC Glucometer [phone] Random Glucose Serum Osmolality Lactic Acid Calcium Total Bilirubin AST ALT Alkaline Phosphatase Ammonia Creatine Kinase Creatine Kinase Index CK-MB (CK-2) Troponin I Total Protein Albumin Lipase Urine Color Urine Appearance Urine pH Ur Specific [place] Urine Protein Urine Glucose (UA) Urine Ketones Urine Blood Urine Nitrite Urine Bilirubin Urine Urobilinogen Ur Leukocyte Esterase Urine WBC (Auto) Urine RBC (Auto) Urine Mucus Urine Osmolality Ur Random Sodium Ur Random Potassium Ur Random Chloride CSF Appearance CSF Color CSF WBC CSF RBC CSF Neutrophils CSF Lymphocytes CSF Eosinophils CSF Basophils CSF Macrophages CSF Plasma Cells CSF Diff Comment CSF Comment CSF Glucose CSF Total Protein Salicylates Opiates Screen Methadone Screen Acetaminophen Barbiturate Screen Phencyclidine Screen Ur Amphetamines Screen MDMA (Ecstasy) Screen Benzodiazepines Screen Cocaine Screen U Marijuana (THC) Screen Alcohol, Quantitative ASSESSMENT/PLAN: Pt is a poor historian, history taken from ED staff and previous medical records. Pt is a 58 y/o lady with a significant past medical history of opiate abuse, HTN, IDDM, s/p gastric bypass, recurrent anemia, gastric ulcer, possible ischemic colitis, chronic diarrhea, DVT on Eliquis who was brought in to [facility] by ambulance yesterday evening (Aug) 2/2 altered mental status and poor PO intake. # Acetominophen Overdose -Acetominophen level 9.2, indicating very recent or late ingestion of drug - Poison control contacted, recommended following: -N-Acetylcysteine 50 mg/kg IV x 1 h, 50 mg/kg x4hr, then 100 mg/kg x 16hr. - Repeat LFTs and acetaminophen level 1 hr prior to completion of N- acetylcysteine -UDS + for Opiates # Hyperkalemia -6.3 on admission -Received Calcium Gluconate, Insulin +D5W, Albuterol, and Sodium Bicarb Continue to monitor k level #Hepatotoxicity 2/2 Acetominophen toxicity -AST/ALT on admission: 421/266 -f/u ammonia levels -Neuro checks q1h #ELLA BUN/CR 137/4.8 on admission -Nephro on board -Avoid Nephrotoxic agents such as Aminoglycosides and NSAIDS -NS@150 -Continue to trend Bun/Cr #DM -Insulin Sliding Scale -BGM ACHS FEN NS@150cc/hr Continue to monitor all electrolytes NPO DVT ppx: AC on hold per ICU team Dispo: Pt admitted to ICU Visit type - Emergency Visit Emergency Visit: Yes ED Registration Date: 09/06/18 Care time: The patient presented to the Emergency Department on the above date and was hospitalized for further evaluation of their emergent condition. - New Patient This patient is new to me today: Yes Date on this admission: 09/07/18 - Critical Care Critical Care patient: No
[2018-09-07] MEDS ORDERED: ACETYLCYSTEINE 20% 200MG/ML 30ML VIAL *FOR INJECTION USE ONLY IVPB ONE ×2 (01:48→20:59)
[2018-09-07 02:02] LABS: CSF WBC 3
[2018-09-07 02:05] LABS: CSF COLOR COLORLESS
[2018-09-07 02:06] LABS: CSF APPEARANCE CLEAR
[2018-09-07] MEDS ORDERED: INSULIN (NOVOLOG) ASPART 100 UNITS/ML 10ML VIAL ONE (02:25)
[2018-09-07] MEDS: INSULIN SLIDING SCALE (NOVOLOG) 1 VIAL SQ SCH ×6 (02:26→23:23)
[2018-09-07] MEDS ORDERED: HEPARIN NA (PORCINE) 5,000 UNITS/ML 1ML VIAL ONE (02:42)
[2018-09-07] MEDS: HEPARIN NA (PORCINE) 5,000 UNITS/ML 1ML VIAL SQ SCH ×3 (02:53→23:22)
[2018-09-07 03:23] LABS: ALBUMIN 1.6 g/dl (3.4-5.0); ALK PHOS 58 U/L (45-117); ANION GAP 18 MMOL/L (8-16); BILIRUBIN,TOTAL 0.4 mg/dL (0.2-1); CHLORIDE 111 mmol/L (98-107); CO2 15 mmol/L (21-32); GLUCOSE,RANDOM 214 mg/dL (74-106); SGOT/AST 282 U/L (15-37); SGPT/ALT 231 U/L (13-61); SODIUM 143 mmol/L (136-145); TOT PROT 4.6 g/dl (6.4-8.2)
[2018-09-07 03:24] LABS: BLOOD UREA NITROGEN 125 mg/dL (7-18)
[2018-09-07 05:21] LABS: ALBUMIN 1.4 g/dl (3.4-5.0); ALK PHOS 53 U/L (45-117); ANION GAP 16 MMOL/L (8-16); BILIRUBIN,TOTAL 0.4 mg/dL (0.2-1); CHLORIDE 116 mmol/L (98-107); CO2 12 mmol/L (21-32); CREATININE 3.9 mg/dL (0.55-1.3); GLUCOSE,RANDOM 125 mg/dL (74-106); POTASSIUM 4.3 mmol/L (3.5-5.1); SGOT/AST 241 U/L (15-37); SGPT/ALT 215 U/L (13-61); SODIUM 145 mmol/L (136-145); TOT PROT 4.2 g/dl (6.4-8.2)
[2018-09-07 05:51] LABS: BLOOD UREA NITROGEN 120 mg/dL (7-18)
[2018-09-07] MEDS ORDERED: CALCITRIOL 0.25 MCG CAPSULE (FP) PO SCH (08:00)
[2018-09-07 08:36] LABS: BASO % 0.2 % (0-2.0); EOS % 0.3 % (0-4.5); HEMOGLOBIN 8.5 GM/dL (10.7-15.3); LYMPH % 8.6 % (8-40); MCH 25.4 pg (25.7-33.7); MCHC 32.6 g/dl (32.0-36.0); MEAN CELL VOLUME 78.1 fl (80-96); MEAN PLT VOLUME 7.4 fl (7.5-11.1); MONO % 7.9 % (3.8-10.2); PLATELET COUNT 339 K/MM3 (134-434); RBC 3.34 M/mm3 (3.60-5.2); RDW 17.2 % (11.6-15.6); WHITE BLOOD COUNT 7.2 K/mm3 (4.0-10.0)
[2018-09-07 08:48] LABS: INR 1.71 (0.83-1.09); PROTHROMBIN TIME (PATIENT) 20.3 SEC (9.7-13.0)
[2018-09-07 08:51] LABS: ACTIVATED PTT 31.7 SECONDS (25.2-36.5)
[2018-09-07 09:04] LABS: ALBUMIN 1.5 g/dl (3.4-5.0); ALK PHOS 54 U/L (45-117); ANION GAP 14 MMOL/L (8-16); BILIRUBIN,TOTAL 0.5 mg/dL (0.2-1); CHLORIDE 116 mmol/L (98-107); CO2 15 mmol/L (21-32); CREATININE 3.5 mg/dL (0.55-1.3); GLUCOSE,RANDOM 90 mg/dL (74-106); MAGNESIUM 1.7 mg/dL (1.8-2.4); PHOSPHOROUS 7.9 mg/dL (2.5-4.9); POTASSIUM 4.4 mmol/L (3.5-5.1); SGOT/AST 227 U/L (15-37); SGPT/ALT 203 U/L (13-61); SODIUM 146 mmol/L (136-145); TOT PROT 4.4 g/dl (6.4-8.2)
[2018-09-07 09:17] LABS: BLOOD UREA NITROGEN 119 mg/dL (7-18)
[2018-09-07 09:18] LABS: CALCIUM 6.6 mg/dL (8.5-10.1)
[2018-09-07] MEDS: SODIUM CHLORIDE 0.45% 1,000 ML IV SCH ×2 (09:41→16:55)
[2018-09-07] MEDS ORDERED: MUPIROCIN 2% TOPICAL OINTMENT FOR DECOLONIZATION NS SCH ×2 (10:00→22:00)
--- NOTE | 2018-09-07 10:39 | EKG ---
Test Reason : Blood Pressure : / mmHG Vent. Rate : 117 BPM Atrial Rate : 120 BPM P-R Int : 000 ms QRS Dur : 072 ms QT Int : 368 ms P-R-T Axes : 000 035 -38 degrees QTc Int : 513 ms PROBABLE SINUS TACHYCARDIA LOW VOLTAGE QRS CANNOT RULE OUT ANTERIOR INFARCT (CITED ON OR BEFORE 01-AUG-2018) ABNORMAL ECG WHEN COMPARED WITH ECG OF 06-SEP-2018 15:22, LIKELY NO SIGNIFICANT CHANGES Confirmed by DIDI TARANGO, INDIO ([id number]) on 09/07/2018 10:39:17 AM Referred By: Confirmed By:INDIO TOLBERT MD
--- NOTE | 2018-09-07 10:40 | EKG ---
Test Reason : Blood Pressure : / mmHG Vent. Rate : 118 BPM Atrial Rate : 118 BPM P-R Int : 132 ms QRS Dur : 076 ms QT Int : 356 ms P-R-T Axes : 019 040 -26 degrees QTc Int : 498 ms SINUS TACHYCARDIA LOW VOLTAGE QRS CANNOT RULE OUT ANTERIOR INFARCT (CITED ON OR BEFORE 01-AUG-2018) ABNORMAL ECG WHEN COMPARED WITH ECG OF 01-AUG-2018 11:12, T WAVE VARIATION Confirmed by DIDI TARANGO, INDIO ([id number]) on 09/07/2018 10:39:52 AM Referred By: Confirmed By:INDIO TOLBERT MD
[2018-09-07 10:43] LABS: ANISOCYTOSIS 1+; MACROCYTOSIS 0; PLATELET ESTIMATE NORMAL; TARGET CELLS 1+
--- NOTE | 2018-09-07 11:37 | CONSULT ---
Consult Consult Specialty:: Nephrology Reason for Consultation:: ELLA - History of Present Illness Chief Complaint: brought in for lethargy History of Present Illness: Pt is a 58 year old female with pmhx of HTN, DM, gastric bypass, anemia, gastric ulcer, DVT on eliquis, and opioid dependence who was braught in for lethargy. Pt had been in bed at home for several days and was refusing to eat or drink. Pt may have take 80 tablets of 10/325 percocet over the course of 4 days. I was called to evaluate her for ELLA and hyperkalemia. I discussed the case with the ER last night. Pt did have a good response to fluids and her potassium improved. She is also making urine. She is now awake but does not remember much about what happened. She denies history of CKD. She denies nsaid use. Pt is unable to say how many pills she took. Pt says that she feels better today. She does not ave much appetite. Poison control was called and she is on NAC. - History Source History Provided By: Patient, Medical Record - Past Medical History SPIRITUAL MINISTER: Yes: Migraine Cardio/Vascular: Yes: HTN, Hyperlipdemia Gastrointestinal: Yes: Other (personal history of colon polyps) Renal/: Yes: Other (ELLA) Infectious Disease: Yes: Other (PPD + per previous records) Musculoskeletal: Yes: Chronic low back pain Endocrine: Yes: Diabetes Mellitus - Past Surgical History Past Surgical History: Yes: Bariatric Surgery (gastric bypass 2008), Cholecystectomy - Alcohol/Substance Use Hx Alcohol Use: No History of Substance Use: reports: None, Prescription (percocet) - Smoking History Smoking history: Unknown if ever smoked Have you smoked in the past 12 months: No Aproximately how many cigarettes per day: 0 - Social History Usual Living Arrangement: With Spouse ADL: Independent History of Recent Travel: No Home Medications - Allergies Allergies/Adverse Reactions: Allergies Allergy/AdvReac Type Severity Reaction Status Date / Time No Known Allergies Allergy Verified 09/06/18 15:25 - Home Medications Home Medications: Ambulatory Orders Glimepiride [Amaryl -] 4 mg PO BID 10/26/12 Cholecalciferol (Vitamin D3) [Vitamin D3] 2,000 unit PO DAILY 07/14/14 Fenofibrate Nanocrystallized [Tricor] 145 mg PO DAILY 07/14/14 Insulin Lispro [Humalog] 5 unit SQ AC 07/14/14 Multivitamins [Multivit ([facility] Formul[facility])] 1 tab PO DAILY 07/14/14 Acarbose [Precose -] 25 mg PO TID 06/25/18 Duloxetine HCl [Cymbalta] 30 mg PO DAILY 06/25/18 Omeprazole 20 mg PO DAILY 06/27/18 Ferrous Sulfate [Feosol] 325 mg PO DAILY #30 ud 07/15/18 Insulin Aspart [Novolog Flexpen] See Protocol SQ ACHS #5 insuln.pen 07/15/18 Mesalamine [Asacol HD -] 800 mg PO TID #60 tablet. 07/15/18 Oxycodone HCl 5 mg PO Q6H #8 tablet MDD 2 07/15/18 Apixaban [Eliquis] 5 mg PO BID #60 tablet 08/06/18 Lisinopril 2.5 mg PO DAILY #30 tablet 08/06/18 Metformin HCl 850 mg PO BID 09/07/18 Oxycodone HCl/Acetaminophen [Percocet 10-325 mg Tablet] 1 each PO Q4HWA PRN 07/18 Pravastatin Sodium [Pravachol (Nf)] 80 mg PO HS 09/07/18 Sitagliptin Phosphate [Januvia] 100 mg PO DAILY 09/07/18 Family Disease History - Family Disease History Family Disease History: Other: Father (: 52: CT. ? h/o crohn's ), Mother ( Alive: healthy), Brother (1, healthy), Sister (2, healthy) Review of Systems - Review of Systems Constitutional: reports: Malaise Eyes: reports: No Symptoms HENT: reports: No Symptoms Neck: reports: No Symptoms Cardiovascular: reports: No Symptoms Respiratory: reports: No Symptoms Gastrointestinal: reports: No Symptoms Genitourinary: reports: No Symptoms Musculoskeletal: reports: No Symptoms Neurological: reports: Change in LOC Hematology/Lymphatic: reports: No Symptoms Psychiatric: reports: No Symptoms Physical Exam Vital Signs: Vital Signs Temperature 99.5 F 09/07/18 10:00 Pulse Rate 125 H 09/07/18 10:00 Respiratory Rate 20 09/07/18 10:00 Blood Pressure 123/53 L 09/07/18 10:00 O2 Sat by Pulse Oximetry (%) 99 10/08/18 07:50 Constitutional: Yes: Calm Eyes: Yes: Conjunctiva Clear HENT: Yes: Atraumatic Neck: Yes: Supple Cardiovascular: Yes: S1, S2 Respiratory: Yes: CTA Bilaterally Gastrointestinal: Yes: Soft Renal/: Yes: La Present Musculoskeletal: Yes: Muscle Weakness Edema: No Integumentary: Yes: WNL Neurological: Yes: Oriented Psychiatric: Yes: Oriented Labs: CBC, BMP 09/07/18 08:15 09/07/18 08:15 Laboratory Tests 09/06/18 09/06/18 09/06/18 15:48 15:48 16:04 WBC Hgb 8.9 L Sodium 140 Potassium 6.3 H* BUN Creatinine Calcium AST ALT Albumin Urine Protein Negative Urine Blood 2+ H Ur Random Sodium 09/06/18 09/06/18 09/07/18 20:00 20:00 02:20 WBC Hgb Sodium Potassium 5.1 5.0 BUN Creatinine Calcium AST ALT Albumin Urine Protein Urine Blood Ur Random Sodium 25 L 09/07/18 09/07/18 09/07/18 04:14 08:15 08:15 WBC 7.2 Hgb 8.5 L Sodium 145 146 H Potassium 4.4 BUN 120 H* 119 H* Creatinine 3.9 H 3.5 H Calcium 6.0 L* 6.6 L* AST 227 H ALT 203 H Albumin 1.4 L 1.5 L Urine Protein Urine Blood Ur Random Sodium Imaging - Results Chest X-ray: Report Reviewed Problem List - Problems (1) ARF (acute renal failure) Code(s): N17.9 - ACUTE KIDNEY FAILURE, UNSPECIFIED Qualifiers: Acute renal failure type: unspecified Qualified Code(s): N17.9 - Acute kidney failure, unspecified (2) Acetaminophen toxicity Code(s): T39.1X1A - POISONING BY 4-AMINOPHENOL DERIVATIVES, ACCIDENTAL, INIT Qualifiers: Encounter type: initial encounter Injury intent: undetermined intent Qualified Code(s): T39.1X4A - Poisoning by 4-Aminophenol derivatives, undetermined, initial encounter (3) Fever Code(s): R50.9 - FEVER, UNSPECIFIED Qualifiers: Fever type: unspecified Qualified Code(s): R50.9 - Fever, unspecified (4) Hyperkalemia Code(s): E87.5 - HYPERKALEMIA (5) Rhabdomyolysis Code(s): M62.82 - RHABDOMYOLYSIS Qualifiers: Rhabdomyolysis type: non-traumatic Qualified Code(s): M62.82 - Rhabdomyolysis Assessment/Plan Current Medications Generic Name Dose Route Start Last Admin Trade Name Silvia PRN Reason Stop Dose Admin Calcitriol 0.5 mcg 09/07/18 22:30 Rocaltrol - PO 09/07/18 22:31 ONCE ONE Calcitriol 0.5 mcg 09/07/18 08:00 09/07/18 09:00 Rocaltrol - PO 0.5 mcg DAILY YAMILKA Administration Calcium Carbonate/Cholecalciferol 2 tab 09/06/18 22:15 09/07/18 09:40 Os-Willy 500+D - PO 2 tab BID YAMILKA Administration Chlorhexidine Gluconate 1 applic 09/07/18 22:00 Hibiclens For Decolonization - TP HS YAMILKA Heparin Sodium (Porcine) 5,000 unit 09/07/18 02:13 09/07/18 07:34 Heparin - SQ 5,000 unit TID YAMILKA Administration Sodium Chloride 1,000 mls @ 150 mls/hr 09/07/18 09:30 09/07/18 09:41 1/2 Normal Saline IV 150 mls/hr ASDIR YAMILKA Administration Insulin Aspart 1 vial 09/07/18 02:00 09/07/18 11:00 Novolog Vial Sliding Scale - SQ Not Given Q4HPO [facility] Protocol Mupirocin 1 applic 09/07/18 10:00 09/07/18 09:42 Bactroban Ointment (For Decolonization) - NS 09/12/18 09:59 1 applic BID YAMILKA Administration Impression 1. ELLA 2. hyperkalemia 3. drug overdose 4. tylenol toxicity 5. rhabdo 6. opioid dependence 7. microscopic hematuria 8. anemia 9. HTN 10. DM 11. hypocalcemia Plan - potassium was treated medically by ER and potassium improved - cont with fluids, change to 1/2 ns - monitor cpk level - check renal ultrasound - urine sodium which is consistent with pre-renal disease - will send renal workup - cont to monitor bun and outpatient admitting clerk - monitor lft and tylenol level - pt on acetylcysteine - will follow pt - acidosis stabilizing - discussed with medical team - ICU care - calcium is improving, cont supplements
--- NOTE | 2018-09-07 13:34 | PN ---
Teaching Attending Note Name of Resident: Odette Garcia ATTENDING PHYSICIAN STATEMENT I saw and evaluated the patient. I reviewed the resident's note and discussed the case with the resident. I agree with the resident's findings and plan as documented. SUBJECTIVE:pt refusing to speak iwth me or answer questions. states "this is not fair" and does not want discuss how she is feeling or what occurred the past few days OBJECTIVE: Last Vital Signs Temp Pulse Resp BP Pulse Ox 99.5 F 123 H 25 H 130/65 99 09/07/18 10:00 09/07/18 12:00 09/07/18 12:00 09/07/18 12:00 09/07/18 07:50 refused physical exam ASSESSMENT AND PLAN: 58 yo F with PMHx of Gastric bypass (?2004), recurrent anemia, prior EGD/ colonoscopy in 05/2018 showing gastric ulcers at anastomotic site/Possible ischemic colitis, recent RLE DVT on eliquis, IDDM, HTN, chronic diarrhea, opioid dependence, brought to the ER with lethargy and anorexia. was recently prescribed percocet by per painting supervisor. She was prescribed 90 pills and there was only 10 remaining after 4 days 1. Acute toxic metabolic encephalopathy- due to tylenol overdose and uremia. there was concern for menningitis with presentation of fevers (Tm 100.9 and tachycardia) and LP was performed. mental status now appears to be close to baseline if not back at baseline. hard to determine given her refusal to answer questions at this time. Head CT is normal. ammonia level normal. UTox +opiates no ther susbtances in her system 2. Tylenol overdose- unclear if intentional or not. initial tylenol level 9.8 and repeat 16H later. unknown last ingestion and at what frequency/rate the medication was taken. started on acetylcystine in the ER. poison control notified. will need to trend tylenol level 3. ARF-likely multifactorial. dehydration, rhabdo, acidosis and possible underlying renal disease. low concern for hepatorenal syndrome as responding to IVF. switch IVF to 1/2NS. cont with aggressive hydration. check renal u/s. no indication for emergent HD at this time. Neprho on board. spoke to nephro 4. Rhabdo- CK trending down. cont to trend CK 5. AGMA- improving. AG slowly closing. cont hydration 6. Transaminitis- due to tylenol use. appears liver is still functioning at this time. 7. Normocytic anemia- likely dilutional component. no signs of bleeding. has hx of transfusions. Hgb is at baseline. no indication for transfusion 8.Hypocalcemia- corrected Ca 8. on supplements 9. Hyperkalemia- treated in the ER. now resolved 10. DVT- ws on eliquis. would hold now given renal function. can consider placing on heparin ggt until renal function improved and safe to re-start 11. DM- bgm and iss. would hold oral agents. 12. DVT ppx- hep ggt 13. explained to patient severity of what has occurred and need for more information in order to treat her appropriately. verbalized understanding but is not interested in speaking at this time The care of this patient involved high complexity decision making to prevent further life threatening deterioration of the patient's condition and/or to evaluate & treat vital organ system(s) failure or risk of failure. 45 mins
[2018-09-07] MEDS ORDERED: ONDANSETRON 4 MG/2 ML VIAL IVPUSH ONE (13:41)
--- NOTE | 2018-09-07 13:45 | PN ---
Teaching Attending Note Name of Resident: Rory Bird ATTENDING PHYSICIAN STATEMENT I saw and evaluated the patient. I reviewed the resident's note and discussed the case with the resident. I agree with the resident's findings and plan as documented. SUBJECTIVE: Patient seen and examined in the ICU. Awake and responsive, but confused. No CP or SOB. LFTs and renal function improving. Intake & Output 09/04/18 09/05/18 09/06/18 09/07/18 23:59 23:59 23:59 23:59 Intake Total 364 Output Total 500 Balance -136 Weight 160 lb 160 lb 0.008 oz Last Vital Signs Temp Pulse Resp BP Pulse Ox 99.5 F 123 H 25 H 130/65 99 09/07/18 10:00 09/07/18 12:00 09/07/18 12:00 09/07/18 12:00 09/07/18 07:50 Active Medications Calcitriol (Rocaltrol -) 0.5 mcg PO ONCE ONE Stop: 09/07/18 22:31 Calcitriol (Rocaltrol -) 0.5 mcg PO DAILY [facility] Last Admin: 09/07/18 09:00 Dose: 0.5 mcg Calcium Carbonate/Cholecalciferol (Os-Willy 500+D -) 2 tab PO BID [facility] Last Admin: 09/07/18 09:40 Dose: 2 tab Chlorhexidine Gluconate (Hibiclens For Decolonization -) 1 applic TP HS [facility] Heparin Sodium (Porcine) (Heparin -) 5,000 unit SQ TID [facility] Last Admin: 09/07/18 07:34 Dose: 5,000 unit Sodium Chloride (1/2 Normal Saline) 1,000 mls @ 150 mls/hr IV ASDIR [facility] Last Admin: 09/07/18 09:41 Dose: 150 mls/hr Insulin Aspart (Novolog Vial Sliding Scale -) 1 vial SQ Q4HPO [facility]; Protocol Last Admin: 09/07/18 11:00 Dose: Not Given Mupirocin (Bactroban Ointment (For Decolonization) -) 1 applic NS BID [facility] Stop: 09/12/18 09:59 Last Admin: 09/07/18 09:42 Dose: 1 applic Ondansetron HCl (Zofran Injection) 4 mg IVPUSH ONCE ONE Stop: 09/07/18 13:42 GENERAL: Awake, confused, NAD HEAD: Normal with no signs of trauma. EYES: Pupils equal, round and reactive to light, extraocular movements intact, sclera anicteric, conjunctiva clear. No lid lag. no nystagmus EARS, NOSE, THROAT: dry mucous membranes. NECK: supple LUNGS: Breath sounds equal, clear to auscultation bilaterally. HEART: tachy rate and reg rhythm, normal S1 and S2 ABDOMEN: Soft, + tender in LUQ, LLQ, suprapubic areas, not distended, globally decreased bowel sounds, no guarding, no rebound, no masses. MUSCULOSKELETAL: No CVA tenderness. UPPER EXTREMITIES: 2+ pulses, warm, well-perfused. No peripheral edema. LOWER EXTREMITIES: 2+ pulses, warm, well-perfused. No calf tenderness. No peripheral edema. NEUROLOGICAL: Non-focal, confused PSYCHIATRIC: confused SKIN: Warm, dry Laboratory Results - last 24 hr 09/06/18 09/06/18 09/06/18 15:48 15:48 15:48 WBC 6.9 RBC 3.53 L Hgb 8.9 L Hct 28.1 L MCV 79.6 L MCH 25.2 L MCHC 31.6 L RDW 17.3 H Plt Count 476 H MPV 7.7 Absolute Neuts (auto) 6.2 Neutrophils % 89.7 H D Neutrophils % (Manual) 85.0 H Band Neutrophils % 4.0 Lymphocytes % 5.2 L D Lymphocytes % (Manual) 8.0 D Monocytes % 4.8 Monocytes % (Manual) 3 L Eosinophils % 0.1 D Eosinophils % (Manual) Basophils % 0.2 Basophils % (Manual) Myelocytes % (Man) Promyelocytes % (Man) Blast Cells % (Manual) Nucleated RBC % 0 Metamyelocytes Hypochromia 1+ Platelet Estimate Increased Platelet Comment No clumping noted Polychromasia Poikilocytosis Anisocytosis 1+ Microcytosis Macrocytosis 1+ Target Cells PT with INR INR PTT (Actin FS) Puncture Site ABG pH ABG pCO2 at Pt Temp ABG pO2 at Pt Temp ABG HCO3 ABG O2 Sat (Measured) ABG O2 Content ABG Base Excess Josue Test Carboxyhemoglobin Methemoglobin O2 Delivery Device Oxygen Flow Rate Sodium 140 Potassium 6.3 H* Chloride 109 H Carbon Dioxide 12 L Anion Gap 20 H BUN 137 H* Creatinine 4.8 H Creat Clearance w eGFR 9.29 POC Glucometer Random Glucose 111 H Serum Osmolality Lactic Acid Calcium 5.7 L* Phosphorus Magnesium Total Bilirubin 0.5 AST 421 H ALT 266 H Alkaline Phosphatase 69 Ammonia Creatine Kinase 9096 H Creatine Kinase Index 0.7 CK-MB (CK-2) 72.4 H Troponin I 0.06 H Total Protein 5.0 L Albumin 1.8 L Lipase Urine Color Urine Appearance Urine pH Ur Specific [place] Urine Protein Urine Glucose (UA) Urine Ketones Urine Blood Urine Nitrite Urine Bilirubin Urine Urobilinogen Ur Leukocyte Esterase Urine WBC (Auto) Urine RBC (Auto) Urine Mucus Urine Osmolality Ur Random Sodium Ur Random Potassium Ur Random Chloride CSF Appearance CSF Color CSF WBC CSF RBC CSF Neutrophils CSF Lymphocytes CSF Eosinophils CSF Basophils CSF Macrophages CSF Plasma Cells CSF Diff Comment CSF Comment CSF Glucose CSF Total Protein CSF Prealbumin CSF Albumin CSF Vnpww-0-Iczthxnb CSF Iidym-3-Gvcnrjzv CSF Beta Globulin CSF Gamma Globulin CSF PEP M-Claudio CSF VDRL CSF Lyme IgG [place] CSF Lyme IgG Ab 18 kDa CSF Lyme IgG Ab 23 kDa CSF Lyme IgG Ab 28 kDa CSF Lyme IgG Ab 30 kDa CSF Lyme IgG Ab 39 kDa CSF Lyme IgG Ab 41 kDa CSF Lyme IgG Ab 45 kDa CSF Lyme IgG Ab 58 kDa CSF Lyme IgG Ab 66 kDa CSF Lyme IgG Ab 93 kDa CSF Lyme IgM [place] CSF Lyme IgM Ab 23 kDa CSF Lyme IgM Ab 39 kDa CSF Lyme IgM Ab 41 kDa CSF Lyme Disease DNA CSF Herpes II IgG Ab CSF [place] IgG Ab CSF [place] IgM Ab Salicylates 2.6 L Opiates Screen Methadone Screen Acetaminophen 9.8 L Barbiturate Screen Phencyclidine Screen Ur Amphetamines Screen MDMA (Ecstasy) Screen Benzodiazepines Screen Cocaine Screen U Marijuana (THC) Screen Alcohol, Quantitative Lyme IgG Ab Interpret Lyme IgM Ab Index 09/06/18 09/06/18 09/06/18 16:04 16:04 17:22 WBC RBC Hgb Hct MCV MCH MCHC RDW Plt Count MPV Absolute Neuts (auto) Neutrophils % Neutrophils % (Manual) Band Neutrophils % Lymphocytes % Lymphocytes % (Manual) Monocytes % Monocytes % (Manual) Eosinophils % Eosinophils % (Manual) Basophils % Basophils % (Manual) Myelocytes % (Man) Promyelocytes % (Man) Blast Cells % (Manual) Nucleated RBC % Metamyelocytes Hypochromia Platelet Estimate Platelet Comment Polychromasia Poikilocytosis Anisocytosis Microcytosis Macrocytosis Target Cells PT with INR INR PTT (Actin FS) Puncture Site ABG pH ABG pCO2 at Pt Temp ABG pO2 at Pt Temp ABG HCO3 ABG O2 Sat (Measured) ABG O2 Content ABG Base Excess Josue Test Carboxyhemoglobin Methemoglobin O2 Delivery Device Oxygen Flow Rate Sodium Potassium Chloride Carbon Dioxide Anion Gap BUN Creatinine Creat Clearance w eGFR POC Glucometer Random Glucose Serum Osmolality Lactic Acid 1.1 Calcium Phosphorus Magnesium Total Bilirubin AST ALT Alkaline Phosphatase Ammonia Creatine Kinase Creatine Kinase Index CK-MB (CK-2) Troponin I Total Protein Albumin Lipase Urine Color Sushma Urine Appearance Slcloudy Urine pH 5.0 Ur Specific [place] 1.017 Urine Protein Negative Urine Glucose (UA) Negative Urine Ketones Negative Urine Blood 2+ H Urine Nitrite Negative Urine Bilirubin Negative Urine Urobilinogen Negative Ur Leukocyte Esterase Negative Urine WBC (Auto) 2 Urine RBC (Auto) 1 Urine Mucus Rare Urine Osmolality Ur Random Sodium Ur Random Potassium Ur Random Chloride CSF Appearance CSF Color CSF WBC CSF RBC CSF Neutrophils CSF Lymphocytes CSF Eosinophils CSF Basophils CSF Macrophages CSF Plasma Cells CSF Diff Comment CSF Comment CSF Glucose CSF Total Protein CSF Prealbumin CSF Albumin CSF Qiejr-4-Tzyuwbre CSF Cihcm-9-Vrdowjcz CSF Beta Globulin CSF Gamma Globulin CSF PEP M-Claudio CSF VDRL CSF Lyme IgG [place] CSF Lyme IgG Ab 18 kDa CSF Lyme IgG Ab 23 kDa CSF Lyme IgG Ab 28 kDa CSF Lyme IgG Ab 30 kDa CSF Lyme IgG Ab 39 kDa CSF Lyme IgG Ab 41 kDa CSF Lyme IgG Ab 45 kDa CSF Lyme IgG Ab 58 kDa CSF Lyme IgG Ab 66 kDa CSF Lyme IgG Ab 93 kDa CSF Lyme IgM [place] CSF Lyme IgM Ab 23 kDa CSF Lyme IgM Ab 39 kDa CSF Lyme IgM Ab 41 kDa CSF Lyme Disease DNA CSF Herpes II IgG Ab CSF [place] IgG Ab CSF [place] IgM Ab Salicylates Opiates Screen Positive A* Methadone Screen Negative Acetaminophen Barbiturate Screen Negative Phencyclidine Screen Negative Ur Amphetamines Screen Negative MDMA (Ecstasy) Screen Negative Benzodiazepines Screen Negative Cocaine Screen Negative U Marijuana (THC) Screen Negative Alcohol, Quantitative Lyme IgG Ab Interpret Lyme IgM Ab Index 09/06/18 09/06/18 09/06/18 20:00 20:00 20:00 WBC RBC Hgb Hct MCV MCH MCHC RDW Plt Count MPV Absolute Neuts (auto) Neutrophils % Neutrophils % (Manual) Band Neutrophils % Lymphocytes % Lymphocytes % (Manual) Monocytes % Monocytes % (Manual) Eosinophils % Eosinophils % (Manual) Basophils % Basophils % (Manual) Myelocytes % (Man) Promyelocytes % (Man) Blast Cells % (Manual) Nucleated RBC % Metamyelocytes Hypochromia Platelet Estimate Platelet Comment Polychromasia Poikilocytosis Anisocytosis Microcytosis Macrocytosis Target Cells PT with INR INR PTT (Actin FS) Puncture Site ABG pH ABG pCO2 at Pt Temp ABG pO2 at Pt Temp ABG HCO3 ABG O2 Sat (Measured) ABG O2 Content ABG Base Excess Josue Test Carboxyhemoglobin Methemoglobin O2 Delivery Device Oxygen Flow Rate Sodium Potassium Chloride Carbon Dioxide Anion Gap BUN Creatinine Creat Clearance w eGFR POC Glucometer Random Glucose Serum Osmolality 341 H Lactic Acid Calcium Phosphorus Magnesium Total Bilirubin AST ALT Alkaline Phosphatase Ammonia Creatine Kinase Creatine Kinase Index CK-MB (CK-2) Troponin I Total Protein Albumin Lipase Urine Color Urine Appearance Urine pH Ur Specific [place] Urine Protein Urine Glucose (UA) Urine Ketones Urine Blood Urine Nitrite Urine Bilirubin Urine Urobilinogen Ur Leukocyte Esterase Urine WBC (Auto) Urine RBC (Auto) Urine Mucus Urine Osmolality 363 Ur Random Sodium 25 L Ur Random Potassium 52.0 Ur Random Chloride 28 L CSF Appearance CSF Color CSF WBC CSF RBC CSF Neutrophils CSF Lymphocytes CSF Eosinophils CSF Basophils CSF Macrophages CSF Plasma Cells CSF Diff Comment CSF Comment CSF Glucose CSF Total Protein CSF Prealbumin CSF Albumin CSF Xaauc-5-Ziliqudi CSF Kvbiu-9-Rmpedytx CSF Beta Globulin CSF Gamma Globulin CSF PEP M-Claudio CSF VDRL CSF Lyme IgG [place] CSF Lyme IgG Ab 18 kDa CSF Lyme IgG Ab 23 kDa CSF Lyme IgG Ab 28 kDa CSF Lyme IgG Ab 30 kDa CSF Lyme IgG Ab 39 kDa CSF Lyme IgG Ab 41 kDa CSF Lyme IgG Ab 45 kDa CSF Lyme IgG Ab 58 kDa CSF Lyme IgG Ab 66 kDa CSF Lyme IgG Ab 93 kDa CSF Lyme IgM [place] CSF Lyme IgM Ab 23 kDa CSF Lyme IgM Ab 39 kDa CSF Lyme IgM Ab 41 kDa CSF Lyme Disease DNA CSF Herpes II IgG Ab CSF [place] IgG Ab CSF [place] IgM Ab Salicylates Opiates Screen Methadone Screen Acetaminophen Barbiturate Screen Phencyclidine Screen Ur Amphetamines Screen MDMA (Ecstasy) Screen Benzodiazepines Screen Cocaine Screen U Marijuana (THC) Screen Alcohol, Quantitative Lyme IgG Ab Interpret Lyme IgM Ab Index 09/06/18 09/06/18 09/06/18 20:00 20:00 20:00 WBC 5.3 RBC 3.19 L Hgb 8.0 L Hct 25.5 L MCV 79.7 L MCH 25.2 L MCHC 31.6 L RDW 17.3 H Plt Count 400 MPV 7.6 Absolute Neuts (auto) 4.4 Neutrophils % 82.9 H Neutrophils % (Manual) 76.0 Band Neutrophils % 4.0 Lymphocytes % 7.2 L D Lymphocytes % (Manual) 8.0 Monocytes % 8.8 D Monocytes % (Manual) 2 L Eosinophils % 1.0 D Eosinophils % (Manual) Basophils % 0.1 Basophils % (Manual) Myelocytes % (Man) Promyelocytes % (Man) Blast Cells % (Manual) Nucleated RBC % 0 Metamyelocytes Hypochromia 1+ Platelet Estimate Adequate Platelet Comment No clumping noted Polychromasia Poikilocytosis Anisocytosis 1+ Microcytosis Macrocytosis 1+ Target Cells PT with INR INR PTT (Actin FS) Puncture Site ABG pH ABG pCO2 at Pt Temp ABG pO2 at Pt Temp ABG HCO3 ABG O2 Sat (Measured) ABG O2 Content ABG Base Excess Josue Test Carboxyhemoglobin Methemoglobin O2 Delivery Device Oxygen Flow Rate Sodium 143 Potassium 5.1 Chloride 115 H Carbon Dioxide 13 L Anion Gap 16 BUN 125 H* Creatinine 4.4 H Creat Clearance w eGFR 10.27 POC Glucometer Random Glucose 161 H Serum Osmolality Lactic Acid Calcium 5.5 L* Phosphorus Magnesium Total Bilirubin 0.5 AST 340 H ALT 227 H Alkaline Phosphatase 59 Ammonia < 10 L Creatine Kinase 8182 H Creatine Kinase Index 0.6 CK-MB (CK-2) 56.3 H Troponin I 0.06 H Total Protein 4.4 L Albumin 1.6 L Lipase 79 Urine Color Urine Appearance Urine pH Ur Specific [place] Urine Protein Urine Glucose (UA) Urine Ketones Urine Blood Urine Nitrite Urine Bilirubin Urine Urobilinogen Ur Leukocyte Esterase Urine WBC (Auto) Urine RBC (Auto) Urine Mucus Urine Osmolality Ur Random Sodium Ur Random Potassium Ur Random Chloride CSF Appearance CSF Color CSF WBC CSF RBC CSF Neutrophils CSF Lymphocytes CSF Eosinophils CSF Basophils CSF Macrophages CSF Plasma Cells CSF Diff Comment CSF Comment CSF Glucose CSF Total Protein CSF Prealbumin CSF Albumin CSF Voulx-9-Xycioueu CSF Qhnlz-3-Skagruzi CSF Beta Globulin CSF Gamma Globulin CSF PEP M-Claudio CSF VDRL CSF Lyme IgG [place] CSF Lyme IgG Ab 18 kDa CSF Lyme IgG Ab 23 kDa CSF Lyme IgG Ab 28 kDa CSF Lyme IgG Ab 30 kDa CSF Lyme IgG Ab 39 kDa CSF Lyme IgG Ab 41 kDa CSF Lyme IgG Ab 45 kDa CSF Lyme IgG Ab 58 kDa CSF Lyme IgG Ab 66 kDa CSF Lyme IgG Ab 93 kDa CSF Lyme IgM [place] CSF Lyme IgM Ab 23 kDa CSF Lyme IgM Ab 39 kDa CSF Lyme IgM Ab 41 kDa CSF Lyme Disease DNA CSF Herpes II IgG Ab CSF [place] IgG Ab CSF [place] IgM Ab Salicylates Opiates Screen Methadone Screen Acetaminophen Barbiturate Screen Phencyclidine Screen Ur Amphetamines Screen MDMA (Ecstasy) Screen Benzodiazepines Screen Cocaine Screen U Marijuana (THC) Screen Alcohol, Quantitative < 3.0 Lyme IgG Ab Interpret Lyme IgM Ab Index 09/06/18 09/06/18 09/06/18 22:28 22:28 22:28 WBC RBC Hgb Hct MCV MCH MCHC RDW Plt Count MPV Absolute Neuts (auto) Neutrophils % Neutrophils % (Manual) Band Neutrophils % Lymphocytes % Lymphocytes % (Manual) Monocytes % Monocytes % (Manual) Eosinophils % Eosinophils % (Manual) Basophils % Basophils % (Manual) Myelocytes % (Man) Promyelocytes % (Man) Blast Cells % (Manual) Nucleated RBC % Metamyelocytes Hypochromia Platelet Estimate Platelet Comment Polychromasia Poikilocytosis Anisocytosis Microcytosis Macrocytosis Target Cells PT with INR 20.00 H INR 1.69 H PTT (Actin FS) 28.9 Puncture Site ABG pH ABG pCO2 at Pt Temp ABG pO2 at Pt Temp ABG HCO3 ABG O2 Sat (Measured) ABG O2 Content ABG Base Excess Josue Test Carboxyhemoglobin Methemoglobin O2 Delivery Device Oxygen Flow Rate Sodium Potassium Chloride Carbon Dioxide Anion Gap BUN Creatinine Creat Clearance w eGFR POC Glucometer Random Glucose Serum Osmolality Lactic Acid Calcium Phosphorus Magnesium Total Bilirubin AST ALT Alkaline Phosphatase Ammonia Creatine Kinase Creatine Kinase Index CK-MB (CK-2) Troponin I Total Protein Albumin Lipase Urine Color Urine Appearance Urine pH Ur Specific [place] Urine Protein Urine Glucose (UA) Urine Ketones Urine Blood Urine Nitrite Urine Bilirubin Urine Urobilinogen Ur Leukocyte Esterase Urine WBC (Auto) Urine RBC (Auto) Urine Mucus Urine Osmolality Ur Random Sodium Ur Random Potassium Ur Random Chloride CSF Appearance CSF Color CSF WBC CSF RBC CSF Neutrophils CSF Lymphocytes CSF Eosinophils CSF Basophils CSF Macrophages CSF Plasma Cells CSF Diff Comment CSF Comment CSF Glucose 111 H CSF Total Protein 53 H CSF Prealbumin CSF Albumin CSF Ptdlb-0-Oqrglwyr CSF Oqlvs-7-Oqdtkfyo CSF Beta Globulin CSF Gamma Globulin CSF PEP M-Claudio CSF VDRL CSF Lyme IgG [place] CSF Lyme IgG Ab 18 kDa CSF Lyme IgG Ab 23 kDa CSF Lyme IgG Ab 28 kDa CSF Lyme IgG Ab 30 kDa CSF Lyme IgG Ab 39 kDa CSF Lyme IgG Ab 41 kDa CSF Lyme IgG Ab 45 kDa CSF Lyme IgG Ab 58 kDa CSF Lyme IgG Ab 66 kDa CSF Lyme IgG Ab 93 kDa CSF Lyme IgM [place] CSF Lyme IgM Ab 23 kDa CSF Lyme IgM Ab 39 kDa CSF Lyme IgM Ab 41 kDa CSF Lyme Disease DNA Cancelled CSF Herpes II IgG Ab Cancelled CSF [place] IgG Ab Cancelled CSF [place] IgM Ab Cancelled Salicylates Opiates Screen Methadone Screen Acetaminophen Barbiturate Screen Phencyclidine Screen Ur Amphetamines Screen MDMA (Ecstasy) Screen Benzodiazepines Screen Cocaine Screen U Marijuana (THC) Screen Alcohol, Quantitative Lyme IgG Ab Interpret Lyme IgM Ab Index 09/06/18 09/06/18 09/06/18 22:28 23:25 23:35 WBC RBC Hgb Hct MCV MCH MCHC RDW Plt Count MPV Absolute Neuts (auto) Neutrophils % Neutrophils % (Manual) Band Neutrophils % Lymphocytes % Lymphocytes % (Manual) Monocytes % Monocytes % (Manual) Eosinophils % Eosinophils % (Manual) Basophils % Basophils % (Manual) Myelocytes % (Man) Promyelocytes % (Man) Blast Cells % (Manual) Nucleated RBC % Metamyelocytes Hypochromia Platelet Estimate Platelet Comment Polychromasia Poikilocytosis Anisocytosis Microcytosis Macrocytosis Target Cells PT with INR INR PTT (Actin FS) Puncture Site ABG pH ABG pCO2 at Pt Temp ABG pO2 at Pt Temp ABG HCO3 ABG O2 Sat (Measured) ABG O2 Content ABG Base Excess Josue Test Carboxyhemoglobin Methemoglobin O2 Delivery Device Oxygen Flow Rate Sodium Potassium Chloride Carbon Dioxide Anion Gap BUN Creatinine Creat Clearance w eGFR POC Glucometer Random Glucose Serum Osmolality Lactic Acid Calcium Phosphorus Magnesium Total Bilirubin AST ALT Alkaline Phosphatase Ammonia < 10 L Creatine Kinase Creatine Kinase Index CK-MB (CK-2) Troponin I Total Protein Albumin Lipase Urine Color Urine Appearance Urine pH Ur Specific [place] Urine Protein Urine Glucose (UA) Urine Ketones Urine Blood Urine Nitrite Urine Bilirubin Urine Urobilinogen Ur Leukocyte Esterase Urine WBC (Auto) Urine RBC (Auto) Urine Mucus Urine Osmolality Ur Random Sodium Ur Random Potassium Ur Random Chloride CSF Appearance Clear CSF Color Colorless CSF WBC 2 CSF RBC 7 CSF Neutrophils No Result Required. CSF Lymphocytes No Result Required. CSF Eosinophils No Result Required. CSF Basophils No Result Required. CSF Macrophages No Result Required. CSF Plasma Cells No Result Required. CSF Diff Comment No Result Required. CSF Comment Tube#4 CSF Glucose CSF Total Protein Cancelled CSF Prealbumin Cancelled CSF Albumin Cancelled CSF Uykwq-9-Bjwcmkdu Cancelled CSF Boijo-6-Iksurhmw Cancelled CSF Beta Globulin Cancelled CSF Gamma Globulin Cancelled CSF PEP M-Claudio Cancelled CSF VDRL Cancelled CSF Lyme IgG [place] Cancelled CSF Lyme IgG Ab 18 kDa Cancelled CSF Lyme IgG Ab 23 kDa Cancelled CSF Lyme IgG Ab 28 kDa Cancelled CSF Lyme IgG Ab 30 kDa Cancelled CSF Lyme IgG Ab 39 kDa Cancelled CSF Lyme IgG Ab 41 kDa Cancelled CSF Lyme IgG Ab 45 kDa Cancelled CSF Lyme IgG Ab 58 kDa Cancelled CSF Lyme IgG Ab 66 kDa Cancelled CSF Lyme IgG Ab 93 kDa Cancelled CSF Lyme IgM [place] Cancelled CSF Lyme IgM Ab 23 kDa Cancelled CSF Lyme IgM Ab 39 kDa Cancelled CSF Lyme IgM Ab 41 kDa Cancelled CSF Lyme Disease DNA CSF Herpes II IgG Ab CSF [place] IgG Ab CSF [place] IgM Ab Salicylates Opiates Screen Methadone Screen Acetaminophen Barbiturate Screen Phencyclidine Screen Ur Amphetamines Screen MDMA (Ecstasy) Screen Benzodiazepines Screen Cocaine Screen U Marijuana (THC) Screen Alcohol, Quantitative Lyme IgG Ab Interpret Cancelled Lyme IgM Ab Index Cancelled 09/06/18 09/06/18 09/07/18 23:53 23:57 00:02 WBC RBC Hgb Hct MCV MCH MCHC RDW Plt Count MPV Absolute Neuts (auto) Neutrophils % Neutrophils % (Manual) Band Neutrophils % Lymphocytes % Lymphocytes % (Manual) Monocytes % Monocytes % (Manual) Eosinophils % Eosinophils % (Manual) Basophils % Basophils % (Manual) Myelocytes % (Man) Promyelocytes % (Man) Blast Cells % (Manual) Nucleated RBC % Metamyelocytes Hypochromia Platelet Estimate Platelet Comment Polychromasia Poikilocytosis Anisocytosis Microcytosis Macrocytosis Target Cells PT with INR INR PTT (Actin FS) Puncture Site Right brachial ABG pH 7.32 L ABG pCO2 at Pt Temp 25.0 L ABG pO2 at Pt Temp 30.4 L* D ABG HCO3 12.6 L* ABG O2 Sat (Measured) 42.8 L* ABG O2 Content 4.0 L* ABG Base Excess -12.1 L* Josue Test Positive Carboxyhemoglobin 1.3 Methemoglobin 1.2 O2 Delivery Device Nasal Oxygen Flow Rate 2l Sodium Potassium Chloride Carbon Dioxide Anion Gap BUN Creatinine Creat Clearance w eGFR POC Glucometer 219.92552 Random Glucose Serum Osmolality Lactic Acid Calcium Phosphorus Magnesium Total Bilirubin AST ALT Alkaline Phosphatase Ammonia Creatine Kinase Creatine Kinase Index CK-MB (CK-2) Troponin I Total Protein Albumin Lipase Urine Color Urine Appearance Urine pH Ur Specific [place] Urine Protein Urine Glucose (UA) Urine Ketones Urine Blood Urine Nitrite Urine Bilirubin Urine Urobilinogen Ur Leukocyte Esterase Urine WBC (Auto) Urine RBC (Auto) Urine Mucus Urine Osmolality Ur Random Sodium Ur Random Potassium Ur Random Chloride CSF Appearance Clear CSF Color Colorless CSF WBC 3 CSF RBC 94 CSF Neutrophils No Result Required. CSF Lymphocytes No Result Required. CSF Eosinophils No Result Required. CSF Basophils No Result Required. CSF Macrophages No Result Required. CSF Plasma Cells No Result Required. CSF Diff Comment No Result Required. CSF Comment CSF Glucose CSF Total Protein CSF Prealbumin CSF Albumin CSF Htjxc-4-Joojquuq CSF Iyagm-3-Gkhmctuo CSF Beta Globulin CSF Gamma Globulin CSF PEP M-Claudio CSF VDRL CSF Lyme IgG [place] CSF Lyme IgG Ab 18 kDa CSF Lyme IgG Ab 23 kDa CSF Lyme IgG Ab 28 kDa CSF Lyme IgG Ab 30 kDa CSF Lyme IgG Ab 39 kDa CSF Lyme IgG Ab 41 kDa CSF Lyme IgG Ab 45 kDa CSF Lyme IgG Ab 58 kDa CSF Lyme IgG Ab 66 kDa CSF Lyme IgG Ab 93 kDa CSF Lyme IgM [place] CSF Lyme IgM Ab 23 kDa CSF Lyme IgM Ab 39 kDa CSF Lyme IgM Ab 41 kDa CSF Lyme Disease DNA CSF Herpes II IgG Ab CSF [place] IgG Ab CSF [place] IgM Ab Salicylates Opiates Screen Methadone Screen Acetaminophen Barbiturate Screen Phencyclidine Screen Ur Amphetamines Screen MDMA (Ecstasy) Screen Benzodiazepines Screen Cocaine Screen U Marijuana (THC) Screen Alcohol, Quantitative Lyme IgG Ab Interpret Lyme IgM Ab Index 09/07/18 09/07/18 09/07/18 02:20 02:22 04:14 WBC RBC Hgb Hct MCV MCH MCHC RDW Plt Count MPV Absolute Neuts (auto) Neutrophils % Neutrophils % (Manual) Band Neutrophils % Lymphocytes % Lymphocytes % (Manual) Monocytes % Monocytes % (Manual) Eosinophils % Eosinophils % (Manual) Basophils % Basophils % (Manual) Myelocytes % (Man) Promyelocytes % (Man) Blast Cells % (Manual) Nucleated RBC % Metamyelocytes Hypochromia Platelet Estimate Platelet Comment Polychromasia Poikilocytosis Anisocytosis Microcytosis Macrocytosis Target Cells PT with INR INR PTT (Actin FS) Puncture Site ABG pH ABG pCO2 at Pt Temp ABG pO2 at Pt Temp ABG HCO3 ABG O2 Sat (Measured) ABG O2 Content ABG Base Excess Josue Test Carboxyhemoglobin Methemoglobin O2 Delivery Device Oxygen Flow Rate Sodium 143 145 Potassium 5.0 4.3 Chloride 111 H 116 H Carbon Dioxide 15 L 12 L Anion Gap 18 H 16 BUN 125 H* 120 H* Creatinine 4.0 H 3.9 H Creat Clearance w eGFR 11.46 11.80 POC Glucometer 243.44926 Random Glucose 214 H 125 H Serum Osmolality Lactic Acid Calcium 6.0 L* 6.0 L* Phosphorus Magnesium Total Bilirubin 0.4 0.4 AST 282 H 241 H ALT 231 H 215 H Alkaline Phosphatase 58 53 Ammonia Creatine Kinase Creatine Kinase Index CK-MB (CK-2) Troponin I Total Protein 4.6 L 4.2 L Albumin 1.6 L 1.4 L Lipase Urine Color Urine Appearance Urine pH Ur Specific [place] Urine Protein Urine Glucose (UA) Urine Ketones Urine Blood Urine Nitrite Urine Bilirubin Urine Urobilinogen Ur Leukocyte Esterase Urine WBC (Auto) Urine RBC (Auto) Urine Mucus Urine Osmolality Ur Random Sodium Ur Random Potassium Ur Random Chloride CSF Appearance CSF Color CSF WBC CSF RBC CSF Neutrophils CSF Lymphocytes CSF Eosinophils CSF Basophils CSF Macrophages CSF Plasma Cells CSF Diff Comment CSF Comment CSF Glucose CSF Total Protein CSF Prealbumin CSF Albumin CSF Qkkgn-8-Zfwhhiao CSF Pcbsk-5-Szsutxuh CSF Beta Globulin CSF Gamma Globulin CSF PEP M-Claudio CSF VDRL CSF Lyme IgG [place] CSF Lyme IgG Ab 18 kDa CSF Lyme IgG Ab 23 kDa CSF Lyme IgG Ab 28 kDa CSF Lyme IgG Ab 30 kDa CSF Lyme IgG Ab 39 kDa CSF Lyme IgG Ab 41 kDa CSF Lyme IgG Ab 45 kDa CSF Lyme IgG Ab 58 kDa CSF Lyme IgG Ab 66 kDa CSF Lyme IgG Ab 93 kDa CSF Lyme IgM [place] CSF Lyme IgM Ab 23 kDa CSF Lyme IgM Ab 39 kDa CSF Lyme IgM Ab 41 kDa CSF Lyme Disease DNA CSF Herpes II IgG Ab CSF [place] IgG Ab CSF [place] IgM Ab Salicylates Opiates Screen Methadone Screen Acetaminophen Barbiturate Screen Phencyclidine Screen Ur Amphetamines Screen MDMA (Ecstasy) Screen Benzodiazepines Screen Cocaine Screen U Marijuana (THC) Screen Alcohol, Quantitative Lyme IgG Ab Interpret Lyme IgM Ab Index 09/07/18 09/07/18 09/07/18 05:59 08:15 08:15 WBC 7.2 RBC 3.34 L Hgb 8.5 L Hct 26.0 L MCV 78.1 L MCH 25.4 L MCHC 32.6 RDW 17.2 H Plt Count 339 MPV 7.4 L Absolute Neuts (auto) 6.0 Neutrophils % 83.0 H Neutrophils % (Manual) 77.8 Band Neutrophils % 4.0 Lymphocytes % 8.6 Lymphocytes % (Manual) 8.1 Monocytes % 7.9 Monocytes % (Manual) 8 D Eosinophils % 0.3 Eosinophils % (Manual) 0.0 D Basophils % 0.2 Basophils % (Manual) 0.0 Myelocytes % (Man) 1 D Promyelocytes % (Man) 0 Blast Cells % (Manual) 0 Nucleated RBC % 0 Metamyelocytes 1 D Hypochromia 1+ Platelet Estimate Normal Platelet Comment Polychromasia 1+ Poikilocytosis 1+ Anisocytosis 1+ Microcytosis 1+ Macrocytosis 0 Target Cells 1+ PT with INR INR PTT (Actin FS) Puncture Site ABG pH ABG pCO2 at Pt Temp ABG pO2 at Pt Temp ABG HCO3 ABG O2 Sat (Measured) ABG O2 Content ABG Base Excess Josue Test Carboxyhemoglobin Methemoglobin O2 Delivery Device Oxygen Flow Rate Sodium 146 H Potassium 4.4 Chloride 116 H Carbon Dioxide 15 L Anion Gap 14 BUN 119 H* Creatinine 3.5 H Creat Clearance w eGFR 13.37 POC Glucometer 101.44161 Random Glucose 90 Serum Osmolality Lactic Acid Calcium 6.6 L* Phosphorus 7.9 H Magnesium 1.7 L Total Bilirubin 0.5 AST 227 H ALT 203 H Alkaline Phosphatase 54 Ammonia Creatine Kinase Creatine Kinase Index CK-MB (CK-2) Troponin I Total Protein 4.4 L Albumin 1.5 L Lipase Urine Color Urine Appearance Urine pH Ur Specific [place] Urine Protein Urine Glucose (UA) Urine Ketones Urine Blood Urine Nitrite Urine Bilirubin Urine Urobilinogen Ur Leukocyte Esterase Urine WBC (Auto) Urine RBC (Auto) Urine Mucus Urine Osmolality Ur Random Sodium Ur Random Potassium Ur Random Chloride CSF Appearance CSF Color CSF WBC CSF RBC CSF Neutrophils CSF Lymphocytes CSF Eosinophils CSF Basophils CSF Macrophages CSF Plasma Cells CSF Diff Comment CSF Comment CSF Glucose CSF Total Protein CSF Prealbumin CSF Albumin CSF Gkhey-3-Yutceyjf CSF Reaow-1-Wzbcmxfn CSF Beta Globulin CSF Gamma Globulin CSF PEP M-Claudio CSF VDRL CSF Lyme IgG [place] CSF Lyme IgG Ab 18 kDa CSF Lyme IgG Ab 23 kDa CSF Lyme IgG Ab 28 kDa CSF Lyme IgG Ab 30 kDa CSF Lyme IgG Ab 39 kDa CSF Lyme IgG Ab 41 kDa CSF Lyme IgG Ab 45 kDa CSF Lyme IgG Ab 58 kDa CSF Lyme IgG Ab 66 kDa CSF Lyme IgG Ab 93 kDa CSF Lyme IgM [place] CSF Lyme IgM Ab 23 kDa CSF Lyme IgM Ab 39 kDa CSF Lyme IgM Ab 41 kDa CSF Lyme Disease DNA CSF Herpes II IgG Ab CSF [place] IgG Ab CSF [place] IgM Ab Salicylates Opiates Screen Methadone Screen Acetaminophen 8.6 L Barbiturate Screen Phencyclidine Screen Ur Amphetamines Screen MDMA (Ecstasy) Screen Benzodiazepines Screen Cocaine Screen U Marijuana (THC) Screen Alcohol, Quantitative Lyme IgG Ab Interpret Lyme IgM Ab Index 09/07/18 09/07/18 09/07/18 08:15 08:15 10:29 WBC RBC Hgb Hct MCV MCH MCHC RDW Plt Count MPV Absolute Neuts (auto) Neutrophils % Neutrophils % (Manual) Band Neutrophils % Lymphocytes % Lymphocytes % (Manual) Monocytes % Monocytes % (Manual) Eosinophils % Eosinophils % (Manual) Basophils % Basophils % (Manual) Myelocytes % (Man) Promyelocytes % (Man) Blast Cells % (Manual) Nucleated RBC % Metamyelocytes Hypochromia Platelet Estimate Platelet Comment Polychromasia Poikilocytosis Anisocytosis Microcytosis Macrocytosis Target Cells PT with INR 20.30 H INR 1.71 H PTT (Actin FS) 31.7 Puncture Site ABG pH ABG pCO2 at Pt Temp ABG pO2 at Pt Temp ABG HCO3 ABG O2 Sat (Measured) ABG O2 Content ABG Base Excess Josue Test Carboxyhemoglobin Methemoglobin O2 Delivery Device Oxygen Flow Rate Sodium Cancelled Potassium Cancelled Chloride Cancelled Carbon Dioxide Cancelled Anion Gap Cancelled BUN Cancelled Creatinine Cancelled Creat Clearance w eGFR Cancelled POC Glucometer 131.17256 Random Glucose Cancelled Serum Osmolality Lactic Acid Calcium Cancelled Phosphorus Magnesium Total Bilirubin AST ALT Alkaline Phosphatase Ammonia Creatine Kinase Creatine Kinase Index CK-MB (CK-2) Troponin I Total Protein Albumin Lipase Urine Color Urine Appearance Urine pH Ur Specific [place] Urine Protein Urine Glucose (UA) Urine Ketones Urine Blood Urine Nitrite Urine Bilirubin Urine Urobilinogen Ur Leukocyte Esterase Urine WBC (Auto) Urine RBC (Auto) Urine Mucus Urine Osmolality Ur Random Sodium Ur Random Potassium Ur Random Chloride CSF Appearance CSF Color CSF WBC CSF RBC CSF Neutrophils CSF Lymphocytes CSF Eosinophils CSF Basophils CSF Macrophages CSF Plasma Cells CSF Diff Comment CSF Comment CSF Glucose CSF Total Protein CSF Prealbumin CSF Albumin CSF Qbefr-9-Yactjhfr CSF Epuzk-8-Dgrrpvgi CSF Beta Globulin CSF Gamma Globulin CSF PEP M-Claudio CSF VDRL CSF Lyme IgG [place] CSF Lyme IgG Ab 18 kDa CSF Lyme IgG Ab 23 kDa CSF Lyme IgG Ab 28 kDa CSF Lyme IgG Ab 30 kDa CSF Lyme IgG Ab 39 kDa CSF Lyme IgG Ab 41 kDa CSF Lyme IgG Ab 45 kDa CSF Lyme IgG Ab 58 kDa CSF Lyme IgG Ab 66 kDa CSF Lyme IgG Ab 93 kDa CSF Lyme IgM [place] CSF Lyme IgM Ab 23 kDa CSF Lyme IgM Ab 39 kDa CSF Lyme IgM Ab 41 kDa CSF Lyme Disease DNA CSF Herpes II IgG Ab CSF [place] IgG Ab CSF [place] IgM Ab Salicylates Opiates Screen Methadone Screen Acetaminophen Barbiturate Screen Phencyclidine Screen Ur Amphetamines Screen MDMA (Ecstasy) Screen Benzodiazepines Screen Cocaine Screen U Marijuana (THC) Screen Alcohol, Quantitative Lyme IgG Ab Interpret Lyme IgM Ab Index Problem List - Problems (1) ARF (acute renal failure) Code(s): N17.9 - ACUTE KIDNEY FAILURE, UNSPECIFIED Qualifiers: Acute renal failure type: unspecified Qualified Code(s): N17.9 - Acute kidney failure, unspecified (2) Acetaminophen toxicity Code(s): T39.1X1A - POISONING BY 4-AMINOPHENOL DERIVATIVES, ACCIDENTAL, INIT Qualifiers: Encounter type: initial encounter Injury intent: undetermined intent Qualified Code(s): T39.1X4A - Poisoning by 4-Aminophenol derivatives, undetermined, initial encounter (3) Fever Code(s): R50.9 - FEVER, UNSPECIFIED Qualifiers: Fever type: unspecified Qualified Code(s): R50.9 - Fever, unspecified (4) Hyperkalemia Code(s): E87.5 - HYPERKALEMIA (5) Rhabdomyolysis Code(s): M62.82 - RHABDOMYOLYSIS Qualifiers: Rhabdomyolysis type: non-traumatic Qualified Code(s): M62.82 - Rhabdomyolysis (6) Sepsis Code(s): A41.9 - SEPSIS, UNSPECIFIED ORGANISM Qualifiers: Sepsis type: sepsis due to unspecified organism Qualified Code(s): A41.9 - Sepsis, unspecified organism (7) Transaminitis Code(s): R74.0 - NONSPEC ELEV OF LEVELS OF TRANSAMNS & LACTIC ACID DEHYDRGNSE (8) Abdominal pain Code(s): R10.9 - UNSPECIFIED ABDOMINAL PAIN Qualifiers: Abdominal location: left upper quadrant Qualified Code(s): R10.12 - Left upper quadrant pain (9) Anemia Code(s): D64.9 - ANEMIA, UNSPECIFIED Qualifiers: Anemia type: unspecified type Qualified Code(s): D64.9 - Anemia, unspecified (10) Chronic diarrhea Code(s): K52.9 - NONINFECTIVE GASTROENTERITIS AND COLITIS, UNSPECIFIED (11) Diabetes Code(s): E11.9 - TYPE 2 DIABETES MELLITUS WITHOUT COMPLICATIONS (12) GERD (gastroesophageal reflux disease) Code(s): K21.9 - GASTRO-ESOPHAGEAL REFLUX DISEASE WITHOUT ESOPHAGITIS (13) Hyperlipemia Code(s): E78.5 - HYPERLIPIDEMIA, UNSPECIFIED (14) Opioid abuse Code(s): F11.10 - OPIOID ABUSE, UNCOMPLICATED ASSESSMENT/PLAN: Percocet OD: clinically improved Opiate abuse AMS/hepatic encephalopathy hyperkalemia w/o EKG changes hypocalcemia ELLA/rhabdo transaminitis/acetaminophen hepatotoxicity Abd pain sepsis HTN IDDM anemia chronic diarrhea dvt on eliquis IVF O2 as needed OOB to chair Po as tolerated Complete acetylcysteine Glycemic control Floor Dr [place]
--- NOTE | 2018-09-07 14:18 | PN ---
Physical Exam: SUBJECTIVE: Patient seen and examined at bedside. Flat affect. Complains of nausea. OBJECTIVE: Vital Signs Period Temp Pulse Resp BP Sys/Funes Pulse Ox Last 24 Hr 99.2 F-100.9 F 89-125 16-27 99-130/46-66 94-100 GENERAL: Awake, alert, slow responses, fully oriented, complaining of nausea and vague discomfort HEAD: NC/AT EYES: PERRLA, EOMI ENT: Dry mucous membranes NECK: Trachea midline, full range of motion, supple. LUNGS: CTA b/l HEART: tachy, nl S1 S2 ABDOMEN: hypoactive bowel sounds, soft, TTP in LLQ, non-distended EXTREMITIES: 2+ pulses, warm, well-perfused, no edema. 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, diffuse slight motor weakness (4+/5 x 4), fine tremor x 4 extremities, gait not observed PSYCH: Flat affect, withdrawn SKIN: Warm, dry, normal turgor Laboratory Results - last 24 hr 09/06/18 09/06/18 09/06/18 15:48 15:48 15:48 WBC 6.9 RBC 3.53 L Hgb 8.9 L Hct 28.1 L MCV 79.6 L MCH 25.2 L MCHC 31.6 L RDW 17.3 H Plt Count 476 H MPV 7.7 Absolute Neuts (auto) 6.2 Neutrophils % 89.7 H D Neutrophils % (Manual) 85.0 H Band Neutrophils % 4.0 Lymphocytes % 5.2 L D Lymphocytes % (Manual) 8.0 D Monocytes % 4.8 Monocytes % (Manual) 3 L Eosinophils % 0.1 D Eosinophils % (Manual) Basophils % 0.2 Basophils % (Manual) Myelocytes % (Man) Promyelocytes % (Man) Blast Cells % (Manual) Nucleated RBC % 0 Metamyelocytes Hypochromia 1+ Platelet Estimate Increased Platelet Comment No clumping noted Polychromasia Poikilocytosis Anisocytosis 1+ Microcytosis Macrocytosis 1+ Target Cells PT with INR INR PTT (Actin FS) Puncture Site ABG pH ABG pCO2 at Pt Temp ABG pO2 at Pt Temp ABG HCO3 ABG O2 Sat (Measured) ABG O2 Content ABG Base Excess Josue Test Carboxyhemoglobin Methemoglobin O2 Delivery Device Oxygen Flow Rate Sodium 140 Potassium 6.3 H* Chloride 109 H Carbon Dioxide 12 L Anion Gap 20 H BUN 137 H* Creatinine 4.8 H Creat Clearance w eGFR 9.29 POC Glucometer Random Glucose 111 H Serum Osmolality Lactic Acid Calcium 5.7 L* Phosphorus Magnesium Total Bilirubin 0.5 AST 421 H ALT 266 H Alkaline Phosphatase 69 Ammonia Creatine Kinase 9096 H Creatine Kinase Index 0.7 CK-MB (CK-2) 72.4 H Troponin I 0.06 H Total Protein 5.0 L Albumin 1.8 L Lipase Urine Color Urine Appearance Urine pH Ur Specific [place] Urine Protein Urine Glucose (UA) Urine Ketones Urine Blood Urine Nitrite Urine Bilirubin Urine Urobilinogen Ur Leukocyte Esterase Urine WBC (Auto) Urine RBC (Auto) Urine Mucus Urine Osmolality Ur Random Sodium Ur Random Potassium Ur Random Chloride CSF Appearance CSF Color CSF WBC CSF RBC CSF Neutrophils CSF Lymphocytes CSF Eosinophils CSF Basophils CSF Macrophages CSF Plasma Cells CSF Diff Comment CSF Comment CSF Glucose CSF Total Protein CSF Prealbumin CSF Albumin CSF Mokmx-9-Sneodvow CSF Hombm-4-Nuevvmwg CSF Beta Globulin CSF Gamma Globulin CSF PEP M-Claudio CSF VDRL CSF Lyme IgG [place] CSF Lyme IgG Ab 18 kDa CSF Lyme IgG Ab 23 kDa CSF Lyme IgG Ab 28 kDa CSF Lyme IgG Ab 30 kDa CSF Lyme IgG Ab 39 kDa CSF Lyme IgG Ab 41 kDa CSF Lyme IgG Ab 45 kDa CSF Lyme IgG Ab 58 kDa CSF Lyme IgG Ab 66 kDa CSF Lyme IgG Ab 93 kDa CSF Lyme IgM [place] CSF Lyme IgM Ab 23 kDa CSF Lyme IgM Ab 39 kDa CSF Lyme IgM Ab 41 kDa CSF Lyme Disease DNA CSF Herpes II IgG Ab CSF [place] IgG Ab CSF [place] IgM Ab Salicylates 2.6 L Opiates Screen Methadone Screen Acetaminophen 9.8 L Barbiturate Screen Phencyclidine Screen Ur Amphetamines Screen MDMA (Ecstasy) Screen Benzodiazepines Screen Cocaine Screen U Marijuana (THC) Screen Alcohol, Quantitative Lyme IgG Ab Interpret Lyme IgM Ab Index 09/06/18 09/06/18 09/06/18 16:04 16:04 17:22 WBC RBC Hgb Hct MCV MCH MCHC RDW Plt Count MPV Absolute Neuts (auto) Neutrophils % Neutrophils % (Manual) Band Neutrophils % Lymphocytes % Lymphocytes % (Manual) Monocytes % Monocytes % (Manual) Eosinophils % Eosinophils % (Manual) Basophils % Basophils % (Manual) Myelocytes % (Man) Promyelocytes % (Man) Blast Cells % (Manual) Nucleated RBC % Metamyelocytes Hypochromia Platelet Estimate Platelet Comment Polychromasia Poikilocytosis Anisocytosis Microcytosis Macrocytosis Target Cells PT with INR INR PTT (Actin FS) Puncture Site ABG pH ABG pCO2 at Pt Temp ABG pO2 at Pt Temp ABG HCO3 ABG O2 Sat (Measured) ABG O2 Content ABG Base Excess Josue Test Carboxyhemoglobin Methemoglobin O2 Delivery Device Oxygen Flow Rate Sodium Potassium Chloride Carbon Dioxide Anion Gap BUN Creatinine Creat Clearance w eGFR POC Glucometer Random Glucose Serum Osmolality Lactic Acid 1.1 Calcium Phosphorus Magnesium Total Bilirubin AST ALT Alkaline Phosphatase Ammonia Creatine Kinase Creatine Kinase Index CK-MB (CK-2) Troponin I Total Protein Albumin Lipase Urine Color Sushma Urine Appearance Slcloudy Urine pH 5.0 Ur Specific [place] 1.017 Urine Protein Negative Urine Glucose (UA) Negative Urine Ketones Negative Urine Blood 2+ H Urine Nitrite Negative Urine Bilirubin Negative Urine Urobilinogen Negative Ur Leukocyte Esterase Negative Urine WBC (Auto) 2 Urine RBC (Auto) 1 Urine Mucus Rare Urine Osmolality Ur Random Sodium Ur Random Potassium Ur Random Chloride CSF Appearance CSF Color CSF WBC CSF RBC CSF Neutrophils CSF Lymphocytes CSF Eosinophils CSF Basophils CSF Macrophages CSF Plasma Cells CSF Diff Comment CSF Comment CSF Glucose CSF Total Protein CSF Prealbumin CSF Albumin CSF Yqgsd-8-Jknpcmdx CSF Sprvf-8-Rhfzudlg CSF Beta Globulin CSF Gamma Globulin CSF PEP M-Claudio CSF VDRL CSF Lyme IgG [place] CSF Lyme IgG Ab 18 kDa CSF Lyme IgG Ab 23 kDa CSF Lyme IgG Ab 28 kDa CSF Lyme IgG Ab 30 kDa CSF Lyme IgG Ab 39 kDa CSF Lyme IgG Ab 41 kDa CSF Lyme IgG Ab 45 kDa CSF Lyme IgG Ab 58 kDa CSF Lyme IgG Ab 66 kDa CSF Lyme IgG Ab 93 kDa CSF Lyme IgM [place] CSF Lyme IgM Ab 23 kDa CSF Lyme IgM Ab 39 kDa CSF Lyme IgM Ab 41 kDa CSF Lyme Disease DNA CSF Herpes II IgG Ab CSF [place] IgG Ab CSF [place] IgM Ab Salicylates Opiates Screen Positive A* Methadone Screen Negative Acetaminophen Barbiturate Screen Negative Phencyclidine Screen Negative Ur Amphetamines Screen Negative MDMA (Ecstasy) Screen Negative Benzodiazepines Screen Negative Cocaine Screen Negative U Marijuana (THC) Screen Negative Alcohol, Quantitative Lyme IgG Ab Interpret Lyme IgM Ab Index 09/06/18 09/06/18 09/06/18 20:00 20:00 20:00 WBC RBC Hgb Hct MCV MCH MCHC RDW Plt Count MPV Absolute Neuts (auto) Neutrophils % Neutrophils % (Manual) Band Neutrophils % Lymphocytes % Lymphocytes % (Manual) Monocytes % Monocytes % (Manual) Eosinophils % Eosinophils % (Manual) Basophils % Basophils % (Manual) Myelocytes % (Man) Promyelocytes % (Man) Blast Cells % (Manual) Nucleated RBC % Metamyelocytes Hypochromia Platelet Estimate Platelet Comment Polychromasia Poikilocytosis Anisocytosis Microcytosis Macrocytosis Target Cells PT with INR INR PTT (Actin FS) Puncture Site ABG pH ABG pCO2 at Pt Temp ABG pO2 at Pt Temp ABG HCO3 ABG O2 Sat (Measured) ABG O2 Content ABG Base Excess Josue Test Carboxyhemoglobin Methemoglobin O2 Delivery Device Oxygen Flow Rate Sodium Potassium Chloride Carbon Dioxide Anion Gap BUN Creatinine Creat Clearance w eGFR POC Glucometer Random Glucose Serum Osmolality 341 H Lactic Acid Calcium Phosphorus Magnesium Total Bilirubin AST ALT Alkaline Phosphatase Ammonia Creatine Kinase Creatine Kinase Index CK-MB (CK-2) Troponin I Total Protein Albumin Lipase Urine Color Urine Appearance Urine pH Ur Specific [place] Urine Protein Urine Glucose (UA) Urine Ketones Urine Blood Urine Nitrite Urine Bilirubin Urine Urobilinogen Ur Leukocyte Esterase Urine WBC (Auto) Urine RBC (Auto) Urine Mucus Urine Osmolality 363 Ur Random Sodium 25 L Ur Random Potassium 52.0 Ur Random Chloride 28 L CSF Appearance CSF Color CSF WBC CSF RBC CSF Neutrophils CSF Lymphocytes CSF Eosinophils CSF Basophils CSF Macrophages CSF Plasma Cells CSF Diff Comment CSF Comment CSF Glucose CSF Total Protein CSF Prealbumin CSF Albumin CSF Avlii-2-Tnuklxtq CSF Hxpkz-3-Hkctgear CSF Beta Globulin CSF Gamma Globulin CSF PEP M-Claudio CSF VDRL CSF Lyme IgG [place] CSF Lyme IgG Ab 18 kDa CSF Lyme IgG Ab 23 kDa CSF Lyme IgG Ab 28 kDa CSF Lyme IgG Ab 30 kDa CSF Lyme IgG Ab 39 kDa CSF Lyme IgG Ab 41 kDa CSF Lyme IgG Ab 45 kDa CSF Lyme IgG Ab 58 kDa CSF Lyme IgG Ab 66 kDa CSF Lyme IgG Ab 93 kDa CSF Lyme IgM [place] CSF Lyme IgM Ab 23 kDa CSF Lyme IgM Ab 39 kDa CSF Lyme IgM Ab 41 kDa CSF Lyme Disease DNA CSF Herpes II IgG Ab CSF [place] IgG Ab CSF [place] IgM Ab Salicylates Opiates Screen Methadone Screen Acetaminophen Barbiturate Screen Phencyclidine Screen Ur Amphetamines Screen MDMA (Ecstasy) Screen Benzodiazepines Screen Cocaine Screen U Marijuana (THC) Screen Alcohol, Quantitative Lyme IgG Ab Interpret Lyme IgM Ab Index 09/06/18 09/06/18 09/06/18 20:00 20:00 20:00 WBC 5.3 RBC 3.19 L Hgb 8.0 L Hct 25.5 L MCV 79.7 L MCH 25.2 L MCHC 31.6 L RDW 17.3 H Plt Count 400 MPV 7.6 Absolute Neuts (auto) 4.4 Neutrophils % 82.9 H Neutrophils % (Manual) 76.0 Band Neutrophils % 4.0 Lymphocytes % 7.2 L D Lymphocytes % (Manual) 8.0 Monocytes % 8.8 D Monocytes % (Manual) 2 L Eosinophils % 1.0 D Eosinophils % (Manual) Basophils % 0.1 Basophils % (Manual) Myelocytes % (Man) Promyelocytes % (Man) Blast Cells % (Manual) Nucleated RBC % 0 Metamyelocytes Hypochromia 1+ Platelet Estimate Adequate Platelet Comment No clumping noted Polychromasia Poikilocytosis Anisocytosis 1+ Microcytosis Macrocytosis 1+ Target Cells PT with INR INR PTT (Actin FS) Puncture Site ABG pH ABG pCO2 at Pt Temp ABG pO2 at Pt Temp ABG HCO3 ABG O2 Sat (Measured) ABG O2 Content ABG Base Excess Josue Test Carboxyhemoglobin Methemoglobin O2 Delivery Device Oxygen Flow Rate Sodium 143 Potassium 5.1 Chloride 115 H Carbon Dioxide 13 L Anion Gap 16 BUN 125 H* Creatinine 4.4 H Creat Clearance w eGFR 10.27 POC Glucometer Random Glucose 161 H Serum Osmolality Lactic Acid Calcium 5.5 L* Phosphorus Magnesium Total Bilirubin 0.5 AST 340 H ALT 227 H Alkaline Phosphatase 59 Ammonia < 10 L Creatine Kinase 8182 H Creatine Kinase Index 0.6 CK-MB (CK-2) 56.3 H Troponin I 0.06 H Total Protein 4.4 L Albumin 1.6 L Lipase 79 Urine Color Urine Appearance Urine pH Ur Specific [place] Urine Protein Urine Glucose (UA) Urine Ketones Urine Blood Urine Nitrite Urine Bilirubin Urine Urobilinogen Ur Leukocyte Esterase Urine WBC (Auto) Urine RBC (Auto) Urine Mucus Urine Osmolality Ur Random Sodium Ur Random Potassium Ur Random Chloride CSF Appearance CSF Color CSF WBC CSF RBC CSF Neutrophils CSF Lymphocytes CSF Eosinophils CSF Basophils CSF Macrophages CSF Plasma Cells CSF Diff Comment CSF Comment CSF Glucose CSF Total Protein CSF Prealbumin CSF Albumin CSF Nqcmh-6-Zrtqbufi CSF Ldjek-8-Yzzkbldv CSF Beta Globulin CSF Gamma Globulin CSF PEP M-Claudio CSF VDRL CSF Lyme IgG [place] CSF Lyme IgG Ab 18 kDa CSF Lyme IgG Ab 23 kDa CSF Lyme IgG Ab 28 kDa CSF Lyme IgG Ab 30 kDa CSF Lyme IgG Ab 39 kDa CSF Lyme IgG Ab 41 kDa CSF Lyme IgG Ab 45 kDa CSF Lyme IgG Ab 58 kDa CSF Lyme IgG Ab 66 kDa CSF Lyme IgG Ab 93 kDa CSF Lyme IgM [place] CSF Lyme IgM Ab 23 kDa CSF Lyme IgM Ab 39 kDa CSF Lyme IgM Ab 41 kDa CSF Lyme Disease DNA CSF Herpes II IgG Ab CSF [place] IgG Ab CSF [place] IgM Ab Salicylates Opiates Screen Methadone Screen Acetaminophen Barbiturate Screen Phencyclidine Screen Ur Amphetamines Screen MDMA (Ecstasy) Screen Benzodiazepines Screen Cocaine Screen U Marijuana (THC) Screen Alcohol, Quantitative < 3.0 Lyme IgG Ab Interpret Lyme IgM Ab Index 09/06/18 09/06/18 09/06/18 22:28 22:28 22:28 WBC RBC Hgb Hct MCV MCH MCHC RDW Plt Count MPV Absolute Neuts (auto) Neutrophils % Neutrophils % (Manual) Band Neutrophils % Lymphocytes % Lymphocytes % (Manual) Monocytes % Monocytes % (Manual) Eosinophils % Eosinophils % (Manual) Basophils % Basophils % (Manual) Myelocytes % (Man) Promyelocytes % (Man) Blast Cells % (Manual) Nucleated RBC % Metamyelocytes Hypochromia Platelet Estimate Platelet Comment Polychromasia Poikilocytosis Anisocytosis Microcytosis Macrocytosis Target Cells PT with INR 20.00 H INR 1.69 H PTT (Actin FS) 28.9 Puncture Site ABG pH ABG pCO2 at Pt Temp ABG pO2 at Pt Temp ABG HCO3 ABG O2 Sat (Measured) ABG O2 Content ABG Base Excess Josue Test Carboxyhemoglobin Methemoglobin O2 Delivery Device Oxygen Flow Rate Sodium Potassium Chloride Carbon Dioxide Anion Gap BUN Creatinine Creat Clearance w eGFR POC Glucometer Random Glucose Serum Osmolality Lactic Acid Calcium Phosphorus Magnesium Total Bilirubin AST ALT Alkaline Phosphatase Ammonia Creatine Kinase Creatine Kinase Index CK-MB (CK-2) Troponin I Total Protein Albumin Lipase Urine Color Urine Appearance Urine pH Ur Specific [place] Urine Protein Urine Glucose (UA) Urine Ketones Urine Blood Urine Nitrite Urine Bilirubin Urine Urobilinogen Ur Leukocyte Esterase Urine WBC (Auto) Urine RBC (Auto) Urine Mucus Urine Osmolality Ur Random Sodium Ur Random Potassium Ur Random Chloride CSF Appearance CSF Color CSF WBC CSF RBC CSF Neutrophils CSF Lymphocytes CSF Eosinophils CSF Basophils CSF Macrophages CSF Plasma Cells CSF Diff Comment CSF Comment CSF Glucose 111 H CSF Total Protein 53 H CSF Prealbumin CSF Albumin CSF Bgldc-7-Mbmchtpv CSF Wkxib-5-Enxuwnqt CSF Beta Globulin CSF Gamma Globulin CSF PEP M-Claudio CSF VDRL CSF Lyme IgG [place] CSF Lyme IgG Ab 18 kDa CSF Lyme IgG Ab 23 kDa CSF Lyme IgG Ab 28 kDa CSF Lyme IgG Ab 30 kDa CSF Lyme IgG Ab 39 kDa CSF Lyme IgG Ab 41 kDa CSF Lyme IgG Ab 45 kDa CSF Lyme IgG Ab 58 kDa CSF Lyme IgG Ab 66 kDa CSF Lyme IgG Ab 93 kDa CSF Lyme IgM [place] CSF Lyme IgM Ab 23 kDa CSF Lyme IgM Ab 39 kDa CSF Lyme IgM Ab 41 kDa CSF Lyme Disease DNA Cancelled CSF Herpes II IgG Ab Cancelled CSF [place] IgG Ab Cancelled CSF [place] IgM Ab Cancelled Salicylates Opiates Screen Methadone Screen Acetaminophen Barbiturate Screen Phencyclidine Screen Ur Amphetamines Screen MDMA (Ecstasy) Screen Benzodiazepines Screen Cocaine Screen U Marijuana (THC) Screen Alcohol, Quantitative Lyme IgG Ab Interpret Lyme IgM Ab Index 09/06/18 09/06/18 09/06/18 22:28 23:25 23:35 WBC RBC Hgb Hct MCV MCH MCHC RDW Plt Count MPV Absolute Neuts (auto) Neutrophils % Neutrophils % (Manual) Band Neutrophils % Lymphocytes % Lymphocytes % (Manual) Monocytes % Monocytes % (Manual) Eosinophils % Eosinophils % (Manual) Basophils % Basophils % (Manual) Myelocytes % (Man) Promyelocytes % (Man) Blast Cells % (Manual) Nucleated RBC % Metamyelocytes Hypochromia Platelet Estimate Platelet Comment Polychromasia Poikilocytosis Anisocytosis Microcytosis Macrocytosis Target Cells PT with INR INR PTT (Actin FS) Puncture Site ABG pH ABG pCO2 at Pt Temp ABG pO2 at Pt Temp ABG HCO3 ABG O2 Sat (Measured) ABG O2 Content ABG Base Excess Josue Test Carboxyhemoglobin Methemoglobin O2 Delivery Device Oxygen Flow Rate Sodium Potassium Chloride Carbon Dioxide Anion Gap BUN Creatinine Creat Clearance w eGFR POC Glucometer Random Glucose Serum Osmolality Lactic Acid Calcium Phosphorus Magnesium Total Bilirubin AST ALT Alkaline Phosphatase Ammonia < 10 L Creatine Kinase Creatine Kinase Index CK-MB (CK-2) Troponin I Total Protein Albumin Lipase Urine Color Urine Appearance Urine pH Ur Specific [place] Urine Protein Urine Glucose (UA) Urine Ketones Urine Blood Urine Nitrite Urine Bilirubin Urine Urobilinogen Ur Leukocyte Esterase Urine WBC (Auto) Urine RBC (Auto) Urine Mucus Urine Osmolality Ur Random Sodium Ur Random Potassium Ur Random Chloride CSF Appearance Clear CSF Color Colorless CSF WBC 2 CSF RBC 7 CSF Neutrophils No Result Required. CSF Lymphocytes No Result Required. CSF Eosinophils No Result Required. CSF Basophils No Result Required. CSF Macrophages No Result Required. CSF Plasma Cells No Result Required. CSF Diff Comment No Result Required. CSF Comment Tube#4 CSF Glucose CSF Total Protein Cancelled CSF Prealbumin Cancelled CSF Albumin Cancelled CSF Gtpzd-2-Qqezdbsl Cancelled CSF Rkhkm-5-Uvhpyqhq Cancelled CSF Beta Globulin Cancelled CSF Gamma Globulin Cancelled CSF PEP M-Claudio Cancelled CSF VDRL Cancelled CSF Lyme IgG [place] Cancelled CSF Lyme IgG Ab 18 kDa Cancelled CSF Lyme IgG Ab 23 kDa Cancelled CSF Lyme IgG Ab 28 kDa Cancelled CSF Lyme IgG Ab 30 kDa Cancelled CSF Lyme IgG Ab 39 kDa Cancelled CSF Lyme IgG Ab 41 kDa Cancelled CSF Lyme IgG Ab 45 kDa Cancelled CSF Lyme IgG Ab 58 kDa Cancelled CSF Lyme IgG Ab 66 kDa Cancelled CSF Lyme IgG Ab 93 kDa Cancelled CSF Lyme IgM [place] Cancelled CSF Lyme IgM Ab 23 kDa Cancelled CSF Lyme IgM Ab 39 kDa Cancelled CSF Lyme IgM Ab 41 kDa Cancelled CSF Lyme Disease DNA CSF Herpes II IgG Ab CSF [place] IgG Ab CSF [place] IgM Ab Salicylates Opiates Screen Methadone Screen Acetaminophen Barbiturate Screen Phencyclidine Screen Ur Amphetamines Screen MDMA (Ecstasy) Screen Benzodiazepines Screen Cocaine Screen U Marijuana (THC) Screen Alcohol, Quantitative Lyme IgG Ab Interpret Cancelled Lyme IgM Ab Index Cancelled 09/06/18 09/06/18 09/07/18 23:53 23:57 00:02 WBC RBC Hgb Hct MCV MCH MCHC RDW Plt Count MPV Absolute Neuts (auto) Neutrophils % Neutrophils % (Manual) Band Neutrophils % Lymphocytes % Lymphocytes % (Manual) Monocytes % Monocytes % (Manual) Eosinophils % Eosinophils % (Manual) Basophils % Basophils % (Manual) Myelocytes % (Man) Promyelocytes % (Man) Blast Cells % (Manual) Nucleated RBC % Metamyelocytes Hypochromia Platelet Estimate Platelet Comment Polychromasia Poikilocytosis Anisocytosis Microcytosis Macrocytosis Target Cells PT with INR INR PTT (Actin FS) Puncture Site Right brachial ABG pH 7.32 L ABG pCO2 at Pt Temp 25.0 L ABG pO2 at Pt Temp 30.4 L* D ABG HCO3 12.6 L* ABG O2 Sat (Measured) 42.8 L* ABG O2 Content 4.0 L* ABG Base Excess -12.1 L* Josue Test Positive Carboxyhemoglobin 1.3 Methemoglobin 1.2 O2 Delivery Device Nasal Oxygen Flow Rate 2l Sodium Potassium Chloride Carbon Dioxide Anion Gap BUN Creatinine Creat Clearance w eGFR POC Glucometer [phone] Random Glucose Serum Osmolality Lactic Acid Calcium Phosphorus Magnesium Total Bilirubin AST ALT Alkaline Phosphatase Ammonia Creatine Kinase Creatine Kinase Index CK-MB (CK-2) Troponin I Total Protein Albumin Lipase Urine Color Urine Appearance Urine pH Ur Specific [place] Urine Protein Urine Glucose (UA) Urine Ketones Urine Blood Urine Nitrite Urine Bilirubin Urine Urobilinogen Ur Leukocyte Esterase Urine WBC (Auto) Urine RBC (Auto) Urine Mucus Urine Osmolality Ur Random Sodium Ur Random Potassium Ur Random Chloride CSF Appearance Clear CSF Color Colorless CSF WBC 3 CSF RBC 94 CSF Neutrophils No Result Required. CSF Lymphocytes No Result Required. CSF Eosinophils No Result Required. CSF Basophils No Result Required. CSF Macrophages No Result Required. CSF Plasma Cells No Result Required. CSF Diff Comment No Result Required. CSF Comment CSF Glucose CSF Total Protein CSF Prealbumin CSF Albumin CSF Pbqvx-4-Flxllgwv CSF Pydxz-9-Mxinmsud CSF Beta Globulin CSF Gamma Globulin CSF PEP M-Claudio CSF VDRL CSF Lyme IgG [place] CSF Lyme IgG Ab 18 kDa CSF Lyme IgG Ab 23 kDa CSF Lyme IgG Ab 28 kDa CSF Lyme IgG Ab 30 kDa CSF Lyme IgG Ab 39 kDa CSF Lyme IgG Ab 41 kDa CSF Lyme IgG Ab 45 kDa CSF Lyme IgG Ab 58 kDa CSF Lyme IgG Ab 66 kDa CSF Lyme IgG Ab 93 kDa CSF Lyme IgM [place] CSF Lyme IgM Ab 23 kDa CSF Lyme IgM Ab 39 kDa CSF Lyme IgM Ab 41 kDa CSF Lyme Disease DNA CSF Herpes II IgG Ab CSF [place] IgG Ab CSF [place] IgM Ab Salicylates Opiates Screen Methadone Screen Acetaminophen Barbiturate Screen Phencyclidine Screen Ur Amphetamines Screen MDMA (Ecstasy) Screen Benzodiazepines Screen Cocaine Screen U Marijuana (THC) Screen Alcohol, Quantitative Lyme IgG Ab Interpret Lyme IgM Ab Index 09/07/18 09/07/18 09/07/18 02:20 02:22 04:14 WBC RBC Hgb Hct MCV MCH MCHC RDW Plt Count MPV Absolute Neuts (auto) Neutrophils % Neutrophils % (Manual) Band Neutrophils % Lymphocytes % Lymphocytes % (Manual) Monocytes % Monocytes % (Manual) Eosinophils % Eosinophils % (Manual) Basophils % Basophils % (Manual) Myelocytes % (Man) Promyelocytes % (Man) Blast Cells % (Manual) Nucleated RBC % Metamyelocytes Hypochromia Platelet Estimate Platelet Comment Polychromasia Poikilocytosis Anisocytosis Microcytosis Macrocytosis Target Cells PT with INR INR PTT (Actin FS) Puncture Site ABG pH ABG pCO2 at Pt Temp ABG pO2 at Pt Temp ABG HCO3 ABG O2 Sat (Measured) ABG O2 Content ABG Base Excess Josue Test Carboxyhemoglobin Methemoglobin O2 Delivery Device Oxygen Flow Rate Sodium 143 145 Potassium 5.0 4.3 Chloride 111 H 116 H Carbon Dioxide 15 L 12 L Anion Gap 18 H 16 BUN 125 H* 120 H* Creatinine 4.0 H 3.9 H Creat Clearance w eGFR 11.46 11.80 POC Glucometer [phone] Random Glucose 214 H 125 H Serum Osmolality Lactic Acid Calcium 6.0 L* 6.0 L* Phosphorus Magnesium Total Bilirubin 0.4 0.4 AST 282 H 241 H ALT 231 H 215 H Alkaline Phosphatase 58 53 Ammonia Creatine Kinase Creatine Kinase Index CK-MB (CK-2) Troponin I Total Protein 4.6 L 4.2 L Albumin 1.6 L 1.4 L Lipase Urine Color Urine Appearance Urine pH Ur Specific [place] Urine Protein Urine Glucose (UA) Urine Ketones Urine Blood Urine Nitrite Urine Bilirubin Urine Urobilinogen Ur Leukocyte Esterase Urine WBC (Auto) Urine RBC (Auto) Urine Mucus Urine Osmolality Ur Random Sodium Ur Random Potassium Ur Random Chloride CSF Appearance CSF Color CSF WBC CSF RBC CSF Neutrophils CSF Lymphocytes CSF Eosinophils CSF Basophils CSF Macrophages CSF Plasma Cells CSF Diff Comment CSF Comment CSF Glucose CSF Total Protein CSF Prealbumin CSF Albumin CSF Aixpf-1-Nffuojrk CSF Mmqhk-6-Xgpnqpwx CSF Beta Globulin CSF Gamma Globulin CSF PEP M-Claudio CSF VDRL CSF Lyme IgG [place] CSF Lyme IgG Ab 18 kDa CSF Lyme IgG Ab 23 kDa CSF Lyme IgG Ab 28 kDa CSF Lyme IgG Ab 30 kDa CSF Lyme IgG Ab 39 kDa CSF Lyme IgG Ab 41 kDa CSF Lyme IgG Ab 45 kDa CSF Lyme IgG Ab 58 kDa CSF Lyme IgG Ab 66 kDa CSF Lyme IgG Ab 93 kDa CSF Lyme IgM [place] CSF Lyme IgM Ab 23 kDa CSF Lyme IgM Ab 39 kDa CSF Lyme IgM Ab 41 kDa CSF Lyme Disease DNA CSF Herpes II IgG Ab CSF [place] IgG Ab CSF [place] IgM Ab Salicylates Opiates Screen Methadone Screen Acetaminophen Barbiturate Screen Phencyclidine Screen Ur Amphetamines Screen MDMA (Ecstasy) Screen Benzodiazepines Screen Cocaine Screen U Marijuana (THC) Screen Alcohol, Quantitative Lyme IgG Ab Interpret Lyme IgM Ab Index 09/07/18 09/07/18 09/07/18 05:59 08:15 08:15 WBC 7.2 RBC 3.34 L Hgb 8.5 L Hct 26.0 L MCV 78.1 L MCH 25.4 L MCHC 32.6 RDW 17.2 H Plt Count 339 MPV 7.4 L Absolute Neuts (auto) 6.0 Neutrophils % 83.0 H Neutrophils % (Manual) 77.8 Band Neutrophils % 4.0 Lymphocytes % 8.6 Lymphocytes % (Manual) 8.1 Monocytes % 7.9 Monocytes % (Manual) 8 D Eosinophils % 0.3 Eosinophils % (Manual) 0.0 D Basophils % 0.2 Basophils % (Manual) 0.0 Myelocytes % (Man) 1 D Promyelocytes % (Man) 0 Blast Cells % (Manual) 0 Nucleated RBC % 0 Metamyelocytes 1 D Hypochromia 1+ Platelet Estimate Normal Platelet Comment Polychromasia 1+ Poikilocytosis 1+ Anisocytosis 1+ Microcytosis 1+ Macrocytosis 0 Target Cells 1+ PT with INR INR PTT (Actin FS) Puncture Site ABG pH ABG pCO2 at Pt Temp ABG pO2 at Pt Temp ABG HCO3 ABG O2 Sat (Measured) ABG O2 Content ABG Base Excess Josue Test Carboxyhemoglobin Methemoglobin O2 Delivery Device Oxygen Flow Rate Sodium 146 H Potassium 4.4 Chloride 116 H Carbon Dioxide 15 L Anion Gap 14 BUN 119 H* Creatinine 3.5 H Creat Clearance w eGFR 13.37 POC Glucometer 101.47498 Random Glucose 90 Serum Osmolality Lactic Acid Calcium 6.6 L* Phosphorus 7.9 H Magnesium 1.7 L Total Bilirubin 0.5 AST 227 H ALT 203 H Alkaline Phosphatase 54 Ammonia Creatine Kinase Creatine Kinase Index CK-MB (CK-2) Troponin I Total Protein 4.4 L Albumin 1.5 L Lipase Urine Color Urine Appearance Urine pH Ur Specific [place] Urine Protein Urine Glucose (UA) Urine Ketones Urine Blood Urine Nitrite Urine Bilirubin Urine Urobilinogen Ur Leukocyte Esterase Urine WBC (Auto) Urine RBC (Auto) Urine Mucus Urine Osmolality Ur Random Sodium Ur Random Potassium Ur Random Chloride CSF Appearance CSF Color CSF WBC CSF RBC CSF Neutrophils CSF Lymphocytes CSF Eosinophils CSF Basophils CSF Macrophages CSF Plasma Cells CSF Diff Comment CSF Comment CSF Glucose CSF Total Protein CSF Prealbumin CSF Albumin CSF Okhan-1-Uvvillbu CSF Xsjod-9-Djnlhuhq CSF Beta Globulin CSF Gamma Globulin CSF PEP M-Claudio CSF VDRL CSF Lyme IgG [place] CSF Lyme IgG Ab 18 kDa CSF Lyme IgG Ab 23 kDa CSF Lyme IgG Ab 28 kDa CSF Lyme IgG Ab 30 kDa CSF Lyme IgG Ab 39 kDa CSF Lyme IgG Ab 41 kDa CSF Lyme IgG Ab 45 kDa CSF Lyme IgG Ab 58 kDa CSF Lyme IgG Ab 66 kDa CSF Lyme IgG Ab 93 kDa CSF Lyme IgM [place] CSF Lyme IgM Ab 23 kDa CSF Lyme IgM Ab 39 kDa CSF Lyme IgM Ab 41 kDa CSF Lyme Disease DNA CSF Herpes II IgG Ab CSF [place] IgG Ab CSF [place] IgM Ab Salicylates Opiates Screen Methadone Screen Acetaminophen 8.6 L Barbiturate Screen Phencyclidine Screen Ur Amphetamines Screen MDMA (Ecstasy) Screen Benzodiazepines Screen Cocaine Screen U Marijuana (THC) Screen Alcohol, Quantitative Lyme IgG Ab Interpret Lyme IgM Ab Index 09/07/18 09/07/18 09/07/18 08:15 08:15 10:29 WBC RBC Hgb Hct MCV MCH MCHC RDW Plt Count MPV Absolute Neuts (auto) Neutrophils % Neutrophils % (Manual) Band Neutrophils % Lymphocytes % Lymphocytes % (Manual) Monocytes % Monocytes % (Manual) Eosinophils % Eosinophils % (Manual) Basophils % Basophils % (Manual) Myelocytes % (Man) Promyelocytes % (Man) Blast Cells % (Manual) Nucleated RBC % Metamyelocytes Hypochromia Platelet Estimate Platelet Comment Polychromasia Poikilocytosis Anisocytosis Microcytosis Macrocytosis Target Cells PT with INR 20.30 H INR 1.71 H PTT (Actin FS) 31.7 Puncture Site ABG pH ABG pCO2 at Pt Temp ABG pO2 at Pt Temp ABG HCO3 ABG O2 Sat (Measured) ABG O2 Content ABG Base Excess Josue Test Carboxyhemoglobin Methemoglobin O2 Delivery Device Oxygen Flow Rate Sodium Cancelled Potassium Cancelled Chloride Cancelled Carbon Dioxide Cancelled Anion Gap Cancelled BUN Cancelled Creatinine Cancelled Creat Clearance w eGFR Cancelled POC Glucometer [phone] Random Glucose Cancelled Serum Osmolality Lactic Acid Calcium Cancelled Phosphorus Magnesium Total Bilirubin AST ALT Alkaline Phosphatase Ammonia Creatine Kinase Creatine Kinase Index CK-MB (CK-2) Troponin I Total Protein Albumin Lipase Urine Color Urine Appearance Urine pH Ur Specific [place] Urine Protein Urine Glucose (UA) Urine Ketones Urine Blood Urine Nitrite Urine Bilirubin Urine Urobilinogen Ur Leukocyte Esterase Urine WBC (Auto) Urine RBC (Auto) Urine Mucus Urine Osmolality Ur Random Sodium Ur Random Potassium Ur Random Chloride CSF Appearance CSF Color CSF WBC CSF RBC CSF Neutrophils CSF Lymphocytes CSF Eosinophils CSF Basophils CSF Macrophages CSF Plasma Cells CSF Diff Comment CSF Comment CSF Glucose CSF Total Protein CSF Prealbumin CSF Albumin CSF [id number] CSF Vvjev-[id number]-Razkiwko CSF Beta Globulin CSF Gamma Globulin CSF PEP M-Claudio CSF VDRL CSF Lyme IgG [place] CSF Lyme IgG Ab 18 kDa CSF Lyme IgG Ab 23 kDa CSF Lyme IgG Ab 28 kDa CSF Lyme IgG Ab 30 kDa CSF Lyme IgG Ab 39 kDa CSF Lyme IgG Ab 41 kDa CSF Lyme IgG Ab 45 kDa CSF Lyme IgG Ab 58 kDa CSF Lyme IgG Ab 66 kDa CSF Lyme IgG Ab 93 kDa CSF Lyme IgM [place] CSF Lyme IgM Ab 23 kDa CSF Lyme IgM Ab 39 kDa CSF Lyme IgM Ab 41 kDa CSF Lyme Disease DNA CSF Herpes II IgG Ab CSF [place] IgG Ab CSF [place] IgM Ab Salicylates Opiates Screen Methadone Screen Acetaminophen Barbiturate Screen Phencyclidine Screen Ur Amphetamines Screen MDMA (Ecstasy) Screen Benzodiazepines Screen Cocaine Screen U Marijuana (THC) Screen Alcohol, Quantitative Lyme IgG Ab Interpret Lyme IgM Ab Index Active Medications Generic Name Dose Route Start Last Admin Trade Name Freq PRN Reason Stop Dose Admin Calcitriol 0.5 mcg 09/07/18 22:30 Rocaltrol - PO 09/07/18 22:31 ONCE ONE Calcitriol 0.5 mcg 09/07/18 08:00 09/07/18 09:00 Rocaltrol - PO 0.5 mcg DAILY YAMILKA Administration Calcium Carbonate/Cholecalciferol 2 tab 09/06/18 22:15 09/07/18 09:40 Os-Willy 500+D - PO 2 tab BID YAMILKA Administration Chlorhexidine Gluconate 1 applic 09/07/18 22:00 Hibiclens For Decolonization - TP HS YAMILKA Heparin Sodium (Porcine) 5,000 unit 09/07/18 02:13 09/07/18 07:34 Heparin - SQ 5,000 unit TID YAMILKA Administration Sodium Chloride 1,000 mls @ 150 mls/hr 09/07/18 09:30 09/07/18 09:41 1/2 Normal Saline IV 150 mls/hr ASDIR YAMILKA Administration Insulin Aspart 1 vial 09/07/18 02:00 09/07/18 11:00 Novolog Vial Sliding Scale - SQ Not Given Q4HPO [facility] Protocol Mupirocin 1 applic 09/07/18 10:00 09/07/18 09:42 Bactroban Ointment (For Decolonization) - NS 09/12/18 09:59 1 applic BID [facility] Administration ASSESSMENT/PLAN: 58 y/o F This is a 58 yo F with PMH of opiate abuse, HTN, IDDM, s/p gastric bypass, recurrent anemia, gastric ulcer, possible ischemic colitis, chronic diarrhea, DVT on Eliquis, who was BIBEMS p/w AMS 2/2 percocet overdose and in multi-organ failure. #transaminitis 2/2 acetaminophen OD -reportedly took 80 tablets of percocet -levels low on presentation, likely result of remote ingestion -acetylcysteine completed -clinically improved -LFTs improving -repeat acetaminophen level -1/2 NS @150 -percocet ingestion may have been intentional OD; spoke with Dr. Watts who referred case to [facility] -trend LFTs #nausea/withdrawal -QTc 393 -one dose Zofran given -chronic opiate use/abuse exacerbated by percocet ingestion -monitor -psych/detox #ELLA/rhabdo -CK downtrending, continue to monitor -ELLA improving, continue to monitor -IVF #metabolic abnormalities -K corrected -Ca improving, continue PO calcium and Vit D -monitor lytes #FEN -1/2NS @150 -K corrected, Ca being treated, monitor BMP -diabetic diet #DM -BGM, SSI #PPx -DVT: heparin subq -GI: not indicated at this time #dispo -transfer to med/surg Visit type - Emergency Visit Emergency Visit: No - New Patient This patient is new to me today: Yes Date on this admission: 09/07/18 - Critical Care Critical Care patient: Yes Total Critical Care Time (in minutes): 40 Critical Care Statement: The care of this patient involved high complexity decision making to prevent further life threatening deterioration of the patient 's condition and/or to evaluate & treat vital organ system(s) failure or risk of failure.
--- NOTE | 2018-09-07 15:33 | EKG ---
Test Reason : Blood Pressure : / mmHG Vent. Rate : 122 BPM Atrial Rate : 122 BPM P-R Int : 000 ms QRS Dur : 066 ms QT Int : 276 ms P-R-T Axes : -01 028 148 degrees QTc Int : 393 ms SINUS TACHYCARDIA LOW VOLTAGE QRS CANNOT RULE OUT ANTEROSEPTAL INFARCT (CITED ON OR BEFORE 01-AUG-2018) ABNORMAL ECG WHEN COMPARED WITH ECG OF 06-SEP-2018 17:53, T WAVE VARIATION Confirmed by DIDI TARANGO, INDIO ([id number]) on 09/07/2018 3:33:33 PM Referred By: LINCOLN GARVEY DR Confirmed By:INDIO TOLBERT MD
--- NOTE | 2018-09-07 17:52 | PN ---
Physical Exam: SUBJECTIVE: Patient seen and examined at bedside this morning. Patient appears confused, and refuses to cooperate. She says "yes" to everything which is not her baseline from previous admission. OBJECTIVE: Vital Signs Period Temp Pulse Resp BP Sys/Funes Pulse Ox Last 24 Hr 99.2 F-100.8 F 89-125 19-27 99-130/46-66 94-100 GENERAL: The patient is awake, alert, and oriented x1, not in acute distress HEAD: Normal with no signs of trauma. Patient refused physical exam. Laboratory Results - last 24 hr 09/06/18 09/06/18 09/06/18 17:22 20:00 20:00 WBC RBC Hgb Hct MCV MCH MCHC RDW Plt Count MPV Absolute Neuts (auto) Neutrophils % Neutrophils % (Manual) Band Neutrophils % Lymphocytes % Lymphocytes % (Manual) Monocytes % Monocytes % (Manual) Eosinophils % Eosinophils % (Manual) Basophils % Basophils % (Manual) Myelocytes % (Man) Promyelocytes % (Man) Blast Cells % (Manual) Nucleated RBC % Metamyelocytes Hypochromia Platelet Estimate Platelet Comment Polychromasia Poikilocytosis Anisocytosis Microcytosis Macrocytosis Target Cells PT with INR INR PTT (Actin FS) Puncture Site ABG pH ABG pCO2 at Pt Temp ABG pO2 at Pt Temp ABG HCO3 ABG O2 Sat (Measured) ABG O2 Content ABG Base Excess Josue Test Carboxyhemoglobin Methemoglobin O2 Delivery Device Oxygen Flow Rate Sodium Potassium Chloride Carbon Dioxide Anion Gap BUN Creatinine Creat Clearance w eGFR POC Glucometer Random Glucose Serum Osmolality 341 H Lactic Acid 1.1 Calcium Phosphorus Magnesium Total Bilirubin AST ALT Alkaline Phosphatase Ammonia Creatine Kinase Creatine Kinase Index CK-MB (CK-2) Troponin I Total Protein Albumin Lipase Urine Osmolality Ur Random Sodium 25 L Ur Random Potassium 52.0 Ur Random Chloride 28 L CSF Appearance CSF Color CSF WBC CSF RBC CSF Neutrophils CSF Lymphocytes CSF Eosinophils CSF Basophils CSF Macrophages CSF Plasma Cells CSF Diff Comment CSF Comment CSF Glucose CSF Total Protein CSF Prealbumin CSF Albumin CSF Tzrex-4-Wosugxmc CSF Lwbyp-0-Etviefjn CSF Beta Globulin CSF Gamma Globulin CSF PEP M-Claudio CSF VDRL CSF Lyme IgG [place] CSF Lyme IgG Ab 18 kDa CSF Lyme IgG Ab 23 kDa CSF Lyme IgG Ab 28 kDa CSF Lyme IgG Ab 30 kDa CSF Lyme IgG Ab 39 kDa CSF Lyme IgG Ab 41 kDa CSF Lyme IgG Ab 45 kDa CSF Lyme IgG Ab 58 kDa CSF Lyme IgG Ab 66 kDa CSF Lyme IgG Ab 93 kDa CSF Lyme IgM [place] CSF Lyme IgM Ab 23 kDa CSF Lyme IgM Ab 39 kDa CSF Lyme IgM Ab 41 kDa CSF Lyme Disease DNA CSF Herpes II IgG Ab CSF [place] IgG Ab CSF [place] IgM Ab Acetaminophen Alcohol, Quantitative Lyme IgG Ab Interpret Lyme IgM Ab Index 09/06/18 09/06/18 09/06/18 20:00 20:00 20:00 WBC 5.3 RBC 3.19 L Hgb 8.0 L Hct 25.5 L MCV 79.7 L MCH 25.2 L MCHC 31.6 L RDW 17.3 H Plt Count 400 MPV 7.6 Absolute Neuts (auto) 4.4 Neutrophils % 82.9 H Neutrophils % (Manual) 76.0 Band Neutrophils % 4.0 Lymphocytes % 7.2 L D Lymphocytes % (Manual) 8.0 Monocytes % 8.8 D Monocytes % (Manual) 2 L Eosinophils % 1.0 D Eosinophils % (Manual) Basophils % 0.1 Basophils % (Manual) Myelocytes % (Man) Promyelocytes % (Man) Blast Cells % (Manual) Nucleated RBC % 0 Metamyelocytes Hypochromia 1+ Platelet Estimate Adequate Platelet Comment No clumping noted Polychromasia Poikilocytosis Anisocytosis 1+ Microcytosis Macrocytosis 1+ Target Cells PT with INR INR PTT (Actin FS) Puncture Site ABG pH ABG pCO2 at Pt Temp ABG pO2 at Pt Temp ABG HCO3 ABG O2 Sat (Measured) ABG O2 Content ABG Base Excess Josue Test Carboxyhemoglobin Methemoglobin O2 Delivery Device Oxygen Flow Rate Sodium Potassium Chloride Carbon Dioxide Anion Gap BUN Creatinine Creat Clearance w eGFR POC Glucometer Random Glucose Serum Osmolality Lactic Acid Calcium Phosphorus Magnesium Total Bilirubin AST ALT Alkaline Phosphatase Ammonia < 10 L Creatine Kinase Creatine Kinase Index CK-MB (CK-2) Troponin I Total Protein Albumin Lipase Urine Osmolality 363 Ur Random Sodium Ur Random Potassium Ur Random Chloride CSF Appearance CSF Color CSF WBC CSF RBC CSF Neutrophils CSF Lymphocytes CSF Eosinophils CSF Basophils CSF Macrophages CSF Plasma Cells CSF Diff Comment CSF Comment CSF Glucose CSF Total Protein CSF Prealbumin CSF Albumin CSF Asvsr-5-Bwckogdd CSF Agiyu-2-Lslhqdjg CSF Beta Globulin CSF Gamma Globulin CSF PEP M-Claudio CSF VDRL CSF Lyme IgG [place] CSF Lyme IgG Ab 18 kDa CSF Lyme IgG Ab 23 kDa CSF Lyme IgG Ab 28 kDa CSF Lyme IgG Ab 30 kDa CSF Lyme IgG Ab 39 kDa CSF Lyme IgG Ab 41 kDa CSF Lyme IgG Ab 45 kDa CSF Lyme IgG Ab 58 kDa CSF Lyme IgG Ab 66 kDa CSF Lyme IgG Ab 93 kDa CSF Lyme IgM [place] CSF Lyme IgM Ab 23 kDa CSF Lyme IgM Ab 39 kDa CSF Lyme IgM Ab 41 kDa CSF Lyme Disease DNA CSF Herpes II IgG Ab CSF [place] IgG Ab CSF [place] IgM Ab Acetaminophen Alcohol, Quantitative Lyme IgG Ab Interpret Lyme IgM Ab Index 09/06/18 09/06/18 09/06/18 20:00 22:28 22:28 WBC RBC Hgb Hct MCV MCH MCHC RDW Plt Count MPV Absolute Neuts (auto) Neutrophils % Neutrophils % (Manual) Band Neutrophils % Lymphocytes % Lymphocytes % (Manual) Monocytes % Monocytes % (Manual) Eosinophils % Eosinophils % (Manual) Basophils % Basophils % (Manual) Myelocytes % (Man) Promyelocytes % (Man) Blast Cells % (Manual) Nucleated RBC % Metamyelocytes Hypochromia Platelet Estimate Platelet Comment Polychromasia Poikilocytosis Anisocytosis Microcytosis Macrocytosis Target Cells PT with INR 20.00 H INR 1.69 H PTT (Actin FS) 28.9 Puncture Site ABG pH ABG pCO2 at Pt Temp ABG pO2 at Pt Temp ABG HCO3 ABG O2 Sat (Measured) ABG O2 Content ABG Base Excess Josue Test Carboxyhemoglobin Methemoglobin O2 Delivery Device Oxygen Flow Rate Sodium 143 Potassium 5.1 Chloride 115 H Carbon Dioxide 13 L Anion Gap 16 BUN 125 H* Creatinine 4.4 H Creat Clearance w eGFR 10.27 POC Glucometer Random Glucose 161 H Serum Osmolality Lactic Acid Calcium 5.5 L* Phosphorus Magnesium Total Bilirubin 0.5 AST 340 H ALT 227 H Alkaline Phosphatase 59 Ammonia Creatine Kinase 8182 H Creatine Kinase Index 0.6 CK-MB (CK-2) 56.3 H Troponin I 0.06 H Total Protein 4.4 L Albumin 1.6 L Lipase 79 Urine Osmolality Ur Random Sodium Ur Random Potassium Ur Random Chloride CSF Appearance CSF Color CSF WBC CSF RBC CSF Neutrophils CSF Lymphocytes CSF Eosinophils CSF Basophils CSF Macrophages CSF Plasma Cells CSF Diff Comment CSF Comment CSF Glucose 111 H CSF Total Protein 53 H CSF Prealbumin CSF Albumin CSF Byjus-5-Xmvfzgfq CSF Mkjms-6-Moadgrlo CSF Beta Globulin CSF Gamma Globulin CSF PEP M-Claudio CSF VDRL CSF Lyme IgG [place] CSF Lyme IgG Ab 18 kDa CSF Lyme IgG Ab 23 kDa CSF Lyme IgG Ab 28 kDa CSF Lyme IgG Ab 30 kDa CSF Lyme IgG Ab 39 kDa CSF Lyme IgG Ab 41 kDa CSF Lyme IgG Ab 45 kDa CSF Lyme IgG Ab 58 kDa CSF Lyme IgG Ab 66 kDa CSF Lyme IgG Ab 93 kDa CSF Lyme IgM [place] CSF Lyme IgM Ab 23 kDa CSF Lyme IgM Ab 39 kDa CSF Lyme IgM Ab 41 kDa CSF Lyme Disease DNA CSF Herpes II IgG Ab CSF [place] IgG Ab CSF [place] IgM Ab Acetaminophen Alcohol, Quantitative < 3.0 Lyme IgG Ab Interpret Lyme IgM Ab Index 09/06/18 09/06/18 09/06/18 22:28 22:28 23:25 WBC RBC Hgb Hct MCV MCH MCHC RDW Plt Count MPV Absolute Neuts (auto) Neutrophils % Neutrophils % (Manual) Band Neutrophils % Lymphocytes % Lymphocytes % (Manual) Monocytes % Monocytes % (Manual) Eosinophils % Eosinophils % (Manual) Basophils % Basophils % (Manual) Myelocytes % (Man) Promyelocytes % (Man) Blast Cells % (Manual) Nucleated RBC % Metamyelocytes Hypochromia Platelet Estimate Platelet Comment Polychromasia Poikilocytosis Anisocytosis Microcytosis Macrocytosis Target Cells PT with INR INR PTT (Actin FS) Puncture Site ABG pH ABG pCO2 at Pt Temp ABG pO2 at Pt Temp ABG HCO3 ABG O2 Sat (Measured) ABG O2 Content ABG Base Excess Josue Test Carboxyhemoglobin Methemoglobin O2 Delivery Device Oxygen Flow Rate Sodium Potassium Chloride Carbon Dioxide Anion Gap BUN Creatinine Creat Clearance w eGFR POC Glucometer Random Glucose Serum Osmolality Lactic Acid Calcium Phosphorus Magnesium Total Bilirubin AST ALT Alkaline Phosphatase Ammonia < 10 L Creatine Kinase Creatine Kinase Index CK-MB (CK-2) Troponin I Total Protein Albumin Lipase Urine Osmolality Ur Random Sodium Ur Random Potassium Ur Random Chloride CSF Appearance CSF Color CSF WBC CSF RBC CSF Neutrophils CSF Lymphocytes CSF Eosinophils CSF Basophils CSF Macrophages CSF Plasma Cells CSF Diff Comment CSF Comment CSF Glucose CSF Total Protein Cancelled CSF Prealbumin Cancelled CSF Albumin Cancelled CSF Dgjcp-1-Vgqawhsc Cancelled CSF Qfkth-4-Upmrzsub Cancelled CSF Beta Globulin Cancelled CSF Gamma Globulin Cancelled CSF PEP M-Claudio Cancelled CSF VDRL Cancelled CSF Lyme IgG [place] Cancelled CSF Lyme IgG Ab 18 kDa Cancelled CSF Lyme IgG Ab 23 kDa Cancelled CSF Lyme IgG Ab 28 kDa Cancelled CSF Lyme IgG Ab 30 kDa Cancelled CSF Lyme IgG Ab 39 kDa Cancelled CSF Lyme IgG Ab 41 kDa Cancelled CSF Lyme IgG Ab 45 kDa Cancelled CSF Lyme IgG Ab 58 kDa Cancelled CSF Lyme IgG Ab 66 kDa Cancelled CSF Lyme IgG Ab 93 kDa Cancelled CSF Lyme IgM [place] Cancelled CSF Lyme IgM Ab 23 kDa Cancelled CSF Lyme IgM Ab 39 kDa Cancelled CSF Lyme IgM Ab 41 kDa Cancelled CSF Lyme Disease DNA Cancelled CSF Herpes II IgG Ab Cancelled CSF [place] IgG Ab Cancelled CSF [place] IgM Ab Cancelled Acetaminophen Alcohol, Quantitative Lyme IgG Ab Interpret Cancelled Lyme IgM Ab Index Cancelled 09/06/18 09/06/18 09/06/18 23:35 23:53 23:57 WBC RBC Hgb Hct MCV MCH MCHC RDW Plt Count MPV Absolute Neuts (auto) Neutrophils % Neutrophils % (Manual) Band Neutrophils % Lymphocytes % Lymphocytes % (Manual) Monocytes % Monocytes % (Manual) Eosinophils % Eosinophils % (Manual) Basophils % Basophils % (Manual) Myelocytes % (Man) Promyelocytes % (Man) Blast Cells % (Manual) Nucleated RBC % Metamyelocytes Hypochromia Platelet Estimate Platelet Comment Polychromasia Poikilocytosis Anisocytosis Microcytosis Macrocytosis Target Cells PT with INR INR PTT (Actin FS) Puncture Site ABG pH ABG pCO2 at Pt Temp ABG pO2 at Pt Temp ABG HCO3 ABG O2 Sat (Measured) ABG O2 Content ABG Base Excess Josue Test Carboxyhemoglobin Methemoglobin O2 Delivery Device Oxygen Flow Rate Sodium Potassium Chloride Carbon Dioxide Anion Gap BUN Creatinine Creat Clearance w eGFR POC Glucometer 219.31300 Random Glucose Serum Osmolality Lactic Acid Calcium Phosphorus Magnesium Total Bilirubin AST ALT Alkaline Phosphatase Ammonia Creatine Kinase Creatine Kinase Index CK-MB (CK-2) Troponin I Total Protein Albumin Lipase Urine Osmolality Ur Random Sodium Ur Random Potassium Ur Random Chloride CSF Appearance Clear Clear CSF Color Colorless Colorless CSF WBC 2 3 CSF RBC 7 94 CSF Neutrophils No Result Required. No Result Required. CSF Lymphocytes No Result Required. No Result Required. CSF Eosinophils No Result Required. No Result Required. CSF Basophils No Result Required. No Result Required. CSF Macrophages No Result Required. No Result Required. CSF Plasma Cells No Result Required. No Result Required. CSF Diff Comment No Result Required. No Result Required. CSF Comment Tube#4 CSF Glucose CSF Total Protein CSF Prealbumin CSF Albumin CSF Zattk-4-Hogfjtpf CSF Vrovb-6-Dfoaonvv CSF Beta Globulin CSF Gamma Globulin CSF PEP M-Claudio CSF VDRL CSF Lyme IgG [place] CSF Lyme IgG Ab 18 kDa CSF Lyme IgG Ab 23 kDa CSF Lyme IgG Ab 28 kDa CSF Lyme IgG Ab 30 kDa CSF Lyme IgG Ab 39 kDa CSF Lyme IgG Ab 41 kDa CSF Lyme IgG Ab 45 kDa CSF Lyme IgG Ab 58 kDa CSF Lyme IgG Ab 66 kDa CSF Lyme IgG Ab 93 kDa CSF Lyme IgM [place] CSF Lyme IgM Ab 23 kDa CSF Lyme IgM Ab 39 kDa CSF Lyme IgM Ab 41 kDa CSF Lyme Disease DNA CSF Herpes II IgG Ab CSF [place] IgG Ab CSF [place] IgM Ab Acetaminophen Alcohol, Quantitative Lyme IgG Ab Interpret Lyme IgM Ab Index 09/07/18 09/07/18 09/07/18 00:02 02:20 02:22 WBC RBC Hgb Hct MCV MCH MCHC RDW Plt Count MPV Absolute Neuts (auto) Neutrophils % Neutrophils % (Manual) Band Neutrophils % Lymphocytes % Lymphocytes % (Manual) Monocytes % Monocytes % (Manual) Eosinophils % Eosinophils % (Manual) Basophils % Basophils % (Manual) Myelocytes % (Man) Promyelocytes % (Man) Blast Cells % (Manual) Nucleated RBC % Metamyelocytes Hypochromia Platelet Estimate Platelet Comment Polychromasia Poikilocytosis Anisocytosis Microcytosis Macrocytosis Target Cells PT with INR INR PTT (Actin FS) Puncture Site Right brachial ABG pH 7.32 L ABG pCO2 at Pt Temp 25.0 L ABG pO2 at Pt Temp 30.4 L* D ABG HCO3 12.6 L* ABG O2 Sat (Measured) 42.8 L* ABG O2 Content 4.0 L* ABG Base Excess -12.1 L* Josue Test Positive Carboxyhemoglobin 1.3 Methemoglobin 1.2 O2 Delivery Device Nasal Oxygen Flow Rate 2l Sodium 143 Potassium 5.0 Chloride 111 H Carbon Dioxide 15 L Anion Gap 18 H BUN 125 H* Creatinine 4.0 H Creat Clearance w eGFR 11.46 POC Glucometer 243.07768 Random Glucose 214 H Serum Osmolality Lactic Acid Calcium 6.0 L* Phosphorus Magnesium Total Bilirubin 0.4 AST 282 H ALT 231 H Alkaline Phosphatase 58 Ammonia Creatine Kinase Creatine Kinase Index CK-MB (CK-2) Troponin I Total Protein 4.6 L Albumin 1.6 L Lipase Urine Osmolality Ur Random Sodium Ur Random Potassium Ur Random Chloride CSF Appearance CSF Color CSF WBC CSF RBC CSF Neutrophils CSF Lymphocytes CSF Eosinophils CSF Basophils CSF Macrophages CSF Plasma Cells CSF Diff Comment CSF Comment CSF Glucose CSF Total Protein CSF Prealbumin CSF Albumin CSF Ghvdf-8-Eowmsgjk CSF Gdmdu-4-Zfdofyrx CSF Beta Globulin CSF Gamma Globulin CSF PEP M-Claudio CSF VDRL CSF Lyme IgG [place] CSF Lyme IgG Ab 18 kDa CSF Lyme IgG Ab 23 kDa CSF Lyme IgG Ab 28 kDa CSF Lyme IgG Ab 30 kDa CSF Lyme IgG Ab 39 kDa CSF Lyme IgG Ab 41 kDa CSF Lyme IgG Ab 45 kDa CSF Lyme IgG Ab 58 kDa CSF Lyme IgG Ab 66 kDa CSF Lyme IgG Ab 93 kDa CSF Lyme IgM [place] CSF Lyme IgM Ab 23 kDa CSF Lyme IgM Ab 39 kDa CSF Lyme IgM Ab 41 kDa CSF Lyme Disease DNA CSF Herpes II IgG Ab CSF [place] IgG Ab CSF [place] IgM Ab Acetaminophen Alcohol, Quantitative Lyme IgG Ab Interpret Lyme IgM Ab Index 09/07/18 09/07/18 09/07/18 04:14 05:59 08:15 WBC 7.2 RBC 3.34 L Hgb 8.5 L Hct 26.0 L MCV 78.1 L MCH 25.4 L MCHC 32.6 RDW 17.2 H Plt Count 339 MPV 7.4 L Absolute Neuts (auto) 6.0 Neutrophils % 83.0 H Neutrophils % (Manual) 77.8 Band Neutrophils % 4.0 Lymphocytes % 8.6 Lymphocytes % (Manual) 8.1 Monocytes % 7.9 Monocytes % (Manual) 8 D Eosinophils % 0.3 Eosinophils % (Manual) 0.0 D Basophils % 0.2 Basophils % (Manual) 0.0 Myelocytes % (Man) 1 D Promyelocytes % (Man) 0 Blast Cells % (Manual) 0 Nucleated RBC % 0 Metamyelocytes 1 D Hypochromia 1+ Platelet Estimate Normal Platelet Comment Polychromasia 1+ Poikilocytosis 1+ Anisocytosis 1+ Microcytosis 1+ Macrocytosis 0 Target Cells 1+ PT with INR INR PTT (Actin FS) Puncture Site ABG pH ABG pCO2 at Pt Temp ABG pO2 at Pt Temp ABG HCO3 ABG O2 Sat (Measured) ABG O2 Content ABG Base Excess Josue Test Carboxyhemoglobin Methemoglobin O2 Delivery Device Oxygen Flow Rate Sodium 145 Potassium 4.3 Chloride 116 H Carbon Dioxide 12 L Anion Gap 16 BUN 120 H* Creatinine 3.9 H Creat Clearance w eGFR 11.80 POC Glucometer 101.66551 Random Glucose 125 H Serum Osmolality Lactic Acid Calcium 6.0 L* Phosphorus Magnesium Total Bilirubin 0.4 AST 241 H ALT 215 H Alkaline Phosphatase 53 Ammonia Creatine Kinase Creatine Kinase Index CK-MB (CK-2) Troponin I Total Protein 4.2 L Albumin 1.4 L Lipase Urine Osmolality Ur Random Sodium Ur Random Potassium Ur Random Chloride CSF Appearance CSF Color CSF WBC CSF RBC CSF Neutrophils CSF Lymphocytes CSF Eosinophils CSF Basophils CSF Macrophages CSF Plasma Cells CSF Diff Comment CSF Comment CSF Glucose CSF Total Protein CSF Prealbumin CSF Albumin CSF Jkvlv-9-Etqtkpep CSF Spfnb-6-Vlzwvgwq CSF Beta Globulin CSF Gamma Globulin CSF PEP M-Claudio CSF VDRL CSF Lyme IgG [place] CSF Lyme IgG Ab 18 kDa CSF Lyme IgG Ab 23 kDa CSF Lyme IgG Ab 28 kDa CSF Lyme IgG Ab 30 kDa CSF Lyme IgG Ab 39 kDa CSF Lyme IgG Ab 41 kDa CSF Lyme IgG Ab 45 kDa CSF Lyme IgG Ab 58 kDa CSF Lyme IgG Ab 66 kDa CSF Lyme IgG Ab 93 kDa CSF Lyme IgM [place] CSF Lyme IgM Ab 23 kDa CSF Lyme IgM Ab 39 kDa CSF Lyme IgM Ab 41 kDa CSF Lyme Disease DNA CSF Herpes II IgG Ab CSF [place] IgG Ab CSF [place] IgM Ab Acetaminophen Alcohol, Quantitative Lyme IgG Ab Interpret Lyme IgM Ab Index 09/07/18 09/07/18 09/07/18 08:15 08:15 08:15 WBC RBC Hgb Hct MCV MCH MCHC RDW Plt Count MPV Absolute Neuts (auto) Neutrophils % Neutrophils % (Manual) Band Neutrophils % Lymphocytes % Lymphocytes % (Manual) Monocytes % Monocytes % (Manual) Eosinophils % Eosinophils % (Manual) Basophils % Basophils % (Manual) Myelocytes % (Man) Promyelocytes % (Man) Blast Cells % (Manual) Nucleated RBC % Metamyelocytes Hypochromia Platelet Estimate Platelet Comment Polychromasia Poikilocytosis Anisocytosis Microcytosis Macrocytosis Target Cells PT with INR 20.30 H INR 1.71 H PTT (Actin FS) 31.7 Puncture Site ABG pH ABG pCO2 at Pt Temp ABG pO2 at Pt Temp ABG HCO3 ABG O2 Sat (Measured) ABG O2 Content ABG Base Excess Josue Test Carboxyhemoglobin Methemoglobin O2 Delivery Device Oxygen Flow Rate Sodium 146 H Cancelled Potassium 4.4 Cancelled Chloride 116 H Cancelled Carbon Dioxide 15 L Cancelled Anion Gap 14 Cancelled BUN 119 H* Cancelled Creatinine 3.5 H Cancelled Creat Clearance w eGFR 13.37 Cancelled POC Glucometer Random Glucose 90 Cancelled Serum Osmolality Lactic Acid Calcium 6.6 L* Cancelled Phosphorus 7.9 H Magnesium 1.7 L Total Bilirubin 0.5 AST 227 H ALT 203 H Alkaline Phosphatase 54 Ammonia Creatine Kinase Creatine Kinase Index CK-MB (CK-2) Troponin I Total Protein 4.4 L Albumin 1.5 L Lipase Urine Osmolality Ur Random Sodium Ur Random Potassium Ur Random Chloride CSF Appearance CSF Color CSF WBC CSF RBC CSF Neutrophils CSF Lymphocytes CSF Eosinophils CSF Basophils CSF Macrophages CSF Plasma Cells CSF Diff Comment CSF Comment CSF Glucose CSF Total Protein CSF Prealbumin CSF Albumin CSF Kgisf-0-Txpjrsix CSF Epsxn-3-Fxmftuzf CSF Beta Globulin CSF Gamma Globulin CSF PEP M-Claudio CSF VDRL CSF Lyme IgG [place] CSF Lyme IgG Ab 18 kDa CSF Lyme IgG Ab 23 kDa CSF Lyme IgG Ab 28 kDa CSF Lyme IgG Ab 30 kDa CSF Lyme IgG Ab 39 kDa CSF Lyme IgG Ab 41 kDa CSF Lyme IgG Ab 45 kDa CSF Lyme IgG Ab 58 kDa CSF Lyme IgG Ab 66 kDa CSF Lyme IgG Ab 93 kDa CSF Lyme IgM [place] CSF Lyme IgM Ab 23 kDa CSF Lyme IgM Ab 39 kDa CSF Lyme IgM Ab 41 kDa CSF Lyme Disease DNA CSF Herpes II IgG Ab CSF [place] IgG Ab CSF [place] IgM Ab Acetaminophen 8.6 L Alcohol, Quantitative Lyme IgG Ab Interpret Lyme IgM Ab Index 09/07/18 09/07/18 10:29 14:13 WBC RBC Hgb Hct MCV MCH MCHC RDW Plt Count MPV Absolute Neuts (auto) Neutrophils % Neutrophils % (Manual) Band Neutrophils % Lymphocytes % Lymphocytes % (Manual) Monocytes % Monocytes % (Manual) Eosinophils % Eosinophils % (Manual) Basophils % Basophils % (Manual) Myelocytes % (Man) Promyelocytes % (Man) Blast Cells % (Manual) Nucleated RBC % Metamyelocytes Hypochromia Platelet Estimate Platelet Comment Polychromasia Poikilocytosis Anisocytosis Microcytosis Macrocytosis Target Cells PT with INR INR PTT (Actin FS) Puncture Site ABG pH ABG pCO2 at Pt Temp ABG pO2 at Pt Temp ABG HCO3 ABG O2 Sat (Measured) ABG O2 Content ABG Base Excess Josue Test Carboxyhemoglobin Methemoglobin O2 Delivery Device Oxygen Flow Rate Sodium Potassium Chloride Carbon Dioxide Anion Gap BUN Creatinine Creat Clearance w eGFR POC Glucometer 131.17048 154.78248 Random Glucose Serum Osmolality Lactic Acid Calcium Phosphorus Magnesium Total Bilirubin AST ALT Alkaline Phosphatase Ammonia Creatine Kinase Creatine Kinase Index CK-MB (CK-2) Troponin I Total Protein Albumin Lipase Urine Osmolality Ur Random Sodium Ur Random Potassium Ur Random Chloride CSF Appearance CSF Color CSF WBC CSF RBC CSF Neutrophils CSF Lymphocytes CSF Eosinophils CSF Basophils CSF Macrophages CSF Plasma Cells CSF Diff Comment CSF Comment CSF Glucose CSF Total Protein CSF Prealbumin CSF Albumin CSF Adbuw-4-Ibyvepax CSF Qqmqa-9-Zumdbjya CSF Beta Globulin CSF Gamma Globulin CSF PEP M-Claudio CSF VDRL CSF Lyme IgG [place] CSF Lyme IgG Ab 18 kDa CSF Lyme IgG Ab 23 kDa CSF Lyme IgG Ab 28 kDa CSF Lyme IgG Ab 30 kDa CSF Lyme IgG Ab 39 kDa CSF Lyme IgG Ab 41 kDa CSF Lyme IgG Ab 45 kDa CSF Lyme IgG Ab 58 kDa CSF Lyme IgG Ab 66 kDa CSF Lyme IgG Ab 93 kDa CSF Lyme IgM [place] CSF Lyme IgM Ab 23 kDa CSF Lyme IgM Ab 39 kDa CSF Lyme IgM Ab 41 kDa CSF Lyme Disease DNA CSF Herpes II IgG Ab CSF [place] IgG Ab CSF [place] IgM Ab Acetaminophen Alcohol, Quantitative Lyme IgG Ab Interpret Lyme IgM Ab Index Active Medications Generic Name Dose Route Start Last Admin Trade Name Freq PRN Reason Stop Dose Admin Calcitriol 0.5 mcg 09/07/18 22:30 Rocaltrol - PO 09/07/18 22:31 ONCE ONE Calcitriol 0.5 mcg 09/07/18 08:00 09/07/18 09:00 Rocaltrol - PO 0.5 mcg DAILY YAMILKA Administration Calcium Carbonate/Cholecalciferol 2 tab 09/06/18 22:15 09/07/18 09:40 Os-Willy 500+D - PO 2 tab BID YAMILKA Administration Chlorhexidine Gluconate 1 applic 09/07/18 22:00 Hibiclens For Decolonization - TP HS [facility] Heparin Sodium (Porcine) 5,000 unit 09/07/18 02:13 09/07/18 07:34 Heparin - SQ 5,000 unit TID YAMILKA Administration Sodium Chloride 1,000 mls @ 150 mls/hr 09/07/18 09:30 09/07/18 16:55 1/2 Normal Saline IV 150 mls/hr ASDIR [facility] Administration Insulin Aspart 1 vial 09/07/18 02:00 09/07/18 14:14 Novolog Vial Sliding Scale - SQ Not Given Q4HPO [facility] Protocol Mupirocin 1 applic 09/07/18 10:00 09/07/18 09:42 Bactroban Ointment (For Decolonization) - NS 09/12/18 09:59 1 applic BID YAMILKA Administration ASSESSMENT/PLAN: Patient is a 58 year old female with a significant past medical history of opiate abuse, HTN, IDDM, s/p gastric bypass, recurrent anemia, gastric ulcer, possible ischemic colitis, chronic diarrhea, DVT on Eliquis who was BIBA due to altered mental status and poor PO intake. #Altered mental status: likely 2/2 to Uremia 2/2 Acetaminophen toxicity -Patient reportedly took 80 tablets of percocet in the last 5 days. It is unknown if patient took it at the same time or was distributed over 5 days or last intake. -Acetaminophen level 9.2, repeat level is 8.6; Levels are low likely ingestion is not recent. -Will continue to monitor Acetaminophen level -Urine toxicology: +opiates -Poison control contacted, recommended following: -N-Acetylcysteine 50 mg/kg IV x 1 h, 50 mg/kg x4hr, then 100 mg/kg x 16hr. -1/2 NS @ 150ml/hr started. #Transaminitis 2/2 Acetominophen toxicity -AST/ALT on admission: 421/266; trending down 227/203 -Will monitor #ELLA/Rhabdomyolysis -BUN/CR 137/4.8 on admission, trending down 119/3.5 -CK 8182, trending down, will monitor CK level BID -IVF given -Nephrology (Dr. Calderón) consulted. Recommendations appreciated: - cont with fluids, 1/2 ns - monitor cpk level - check renal ultrasound - urine sodium which is consistent with pre-renal disease - will send renal workup -Avoid Nephrotoxic agents such as Aminoglycosides and NSAIDS -Will monitor BUN/Cr #?Suicide risk -Psychiatrist (Dr. Watts) consulted. Case referred to [facility]. #Hyperkalemia: resolved -6.3 on admission -Received Calcium Gluconate, Insulin +D5W, Albuterol, and Sodium Bicarb -repeat K 4.4 -will continue to monitor #Hypocalcemia: improving -Ca 5.5 on admission, repeat Ca 6.6 -Continue PO Calcium and Vit D -Will monitor #DM -Insulin Sliding Scale -BGM ACHS #FEN -1/2NS@150cc/hr -hypoK, hypoMg, replete as needed -routine cmp monitoring -diabetic diet #Prophylaxis -patient was on eliquis. Held due to ARF -Heparin 5000 units sq tid #Disposition -transfer to med surg Visit type - Emergency Visit Emergency Visit: Yes ED Registration Date: 09/06/18 Care time: The patient presented to the Emergency Department on the above date and was hospitalized for further evaluation of their emergent condition. - New Patient This patient is new to me today: Yes Date on this admission: 09/07/18 - Critical Care Critical Care patient: Yes Total Critical Care Time (in minutes): 40 Critical Care Statement: The care of this patient involved high complexity decision making to prevent further life threatening deterioration of the patient 's condition and/or to evaluate & treat vital organ system(s) failure or risk of failure.
--- NOTE | 2018-09-07 18:09 | PN ---
Progress Note (short form) - Note Progress Note: Case d/w poison control center. Requesting stat repeat acetaminophen level and LFTs. As per center, if acetaminophen level still (+) and LFTs trending up, will likely need additional 16hr infusion bag. However, requesting follow up with results before doing so : Maura Gilliland, Poison Control Center [phone] Thank you Julia Love MD PGY-2 ICU team
[2018-09-07 20:43] LABS: ANION GAP 17 MMOL/L (8-16); BLOOD UREA NITROGEN 103 mg/dL (7-18); CALCIUM 7.2 mg/dL (8.5-10.1); CHLORIDE 113 mmol/L (98-107); CO2 15 mmol/L (21-32); GLUCOSE,RANDOM 147 mg/dL (74-106); POTASSIUM 4.3 mmol/L (3.5-5.1); SODIUM 145 mmol/L (136-145)
[2018-09-07 21:14] LABS: ALBUMIN 1.5 g/dl (3.4-5.0); ALK PHOS 60 U/L (45-117); BILIRUBIN,DIRECT 0.3 mg/dL (0.0-0.2); BILIRUBIN,TOTAL 0.6 mg/dL (0.2-1); SGOT/AST 167 U/L (15-37); SGPT/ALT 198 U/L (13-61); TOT PROT 4.6 g/dl (6.4-8.2)
[2018-09-07] MEDS ORDERED: SODIUM CHLORIDE 0.45% 1,000 ML IV SCH (21:28)
[2018-09-07] MEDS ORDERED: CHLORHEXIDINE GLUCONATE 4% CLEANSER FOR DECOLONIZATION TP SCH ×2 (22:00)
[2018-09-07] MEDS ORDERED: DEXTROSE 5% IVPB ONE (22:30)
[2018-09-07] MEDS ORDERED: CALCITRIOL 0.25 MCG CAPSULE (FP) PO ONE ×2 (22:30)
[2018-09-07] MEDS ORDERED: ACETYLCYSTEINE IVPB ONE (22:30)
[2018-09-07] MEDS ORDERED: WATER IVPB ONE (22:30)
[2018-09-08] MEDS ORDERED: MELATONIN 5 MG TABLETS PO ONE ×2 (01:00→01:30)
--- NOTE | 2018-09-08 03:08 | PN ---
Progress Note (short form) - Note Progress Note: Spoke with poison control and discussed recent labs. It is safe to stop NAC. Problem List - Problems (1) ARF (acute renal failure) Code(s): N17.9 - ACUTE KIDNEY FAILURE, UNSPECIFIED Qualifiers: Acute renal failure type: unspecified Qualified Code(s): N17.9 - Acute kidney failure, unspecified (2) Acetaminophen toxicity Code(s): T39.1X1A - POISONING BY 4-AMINOPHENOL DERIVATIVES, ACCIDENTAL, INIT Qualifiers: Encounter type: initial encounter Injury intent: undetermined intent Qualified Code(s): T39.1X4A - Poisoning by 4-Aminophenol derivatives, undetermined, initial encounter (3) Fever Code(s): R50.9 - FEVER, UNSPECIFIED Qualifiers: Fever type: unspecified Qualified Code(s): R50.9 - Fever, unspecified (4) Hyperkalemia Code(s): E87.5 - HYPERKALEMIA (5) Rhabdomyolysis Code(s): M62.82 - RHABDOMYOLYSIS Qualifiers: Rhabdomyolysis type: non-traumatic Qualified Code(s): M62.82 - Rhabdomyolysis (6) Sepsis Code(s): A41.9 - SEPSIS, UNSPECIFIED ORGANISM Qualifiers: Sepsis type: sepsis due to unspecified organism Qualified Code(s): A41.9 - Sepsis, unspecified organism (7) Transaminitis Code(s): R74.0 - NONSPEC ELEV OF LEVELS OF TRANSAMNS & LACTIC ACID DEHYDRGNSE (8) Abdominal pain Code(s): R10.9 - UNSPECIFIED ABDOMINAL PAIN Qualifiers: Abdominal location: left upper quadrant Qualified Code(s): R10.12 - Left upper quadrant pain (9) Anemia Code(s): D64.9 - ANEMIA, UNSPECIFIED Qualifiers: Anemia type: unspecified type Qualified Code(s): D64.9 - Anemia, unspecified (10) Chronic diarrhea Code(s): K52.9 - NONINFECTIVE GASTROENTERITIS AND COLITIS, UNSPECIFIED (11) Diabetes Code(s): E11.9 - TYPE 2 DIABETES MELLITUS WITHOUT COMPLICATIONS (12) GERD (gastroesophageal reflux disease) Code(s): K21.9 - GASTRO-ESOPHAGEAL REFLUX DISEASE WITHOUT ESOPHAGITIS (13) Hyperlipemia Code(s): E78.5 - HYPERLIPIDEMIA, UNSPECIFIED (14) Opioid abuse Code(s): F11.10 - OPIOID ABUSE, UNCOMPLICATED
--- NOTE | 2018-09-08 05:58 | CONSULT ---
Consult Detox [facility] Reason for Current Admission/Consult: opiate use/overdose? - History History of Present Illness: pt admitted with probable opioid overdose- and rhabydomyolysis and ? R shoulder injury. Pt states she cannot remember how many pills of percocet she took- but thinks she took 70 pills/many days for pain. Pt filled a prescription on 09/02- recieved 90 pills. Pt states she feels like she is in withdrawal from opioids- diarrhea/chills... Urine tox: pos for opiates only ISTOP/MANAGER ASSET: Patient Name: Paula Knox Date: 1960 Address: [address] [place] [address] Sex: Female Rx Written Rx Dispensed Drug Quantity Days Supply Prescriber Name 08/18/2018 09/02/2018 oxycodone-acetaminophen 10-325 mg tab 90 30 Reeder, Luis 08/18/2018 08/18/2018 oxycodone-acetaminophen 10-325 mg tab 60 30 Reeder, Luis 07/21/2018 07/21/2018 oxycodone-acetaminophen 10-325 mg tab 60 30 Reeder, Luis 07/15/2018 07/15/2018 oxycodone hcl 5 mg tablet 8 2 Mateusz Blair 06/23/2018 06/23/2018 oxycodone-acetaminophen 10-325 mg tab 60 30 Reeder, Luis 05/25/2018 05/25/2018 oxycodone-acetaminophen 10-325 mg tab 60 30 Reeder, Luis 04/22/2018 04/25/2018 oxycodone-acetaminophen 10-325 mg tab 60 30 Reeder, Luis 03/25/2018 03/28/2018 oxycodone-acetaminophen 10-325 mg tab 60 30 Reeder, Luis - History Source History Provided By: Patient - Alcohol/Substance Use Hx Alcohol Use: No - Past Medical History HEEL LAYER: Yes: Migraine Cardio/Vascular: Yes: HTN, Hyperlipdemia Gastrointestinal: Yes: Other (personal history of colon polyps) Renal/: Yes: Other (ELLA) Infectious Disease: Yes: Other (PPD + per previous records) Musculoskeletal: Yes: Chronic low back pain Endocrine: Yes: Diabetes Mellitus - Past Surgical History Past Surgical History: Yes: Bariatric Surgery (gastric bypass 2008), Cholecystectomy COWS - Scale Resting Pulse: 1= PA 81-100 Sweatin= Chills/Flushing Restless Observation: 0= Sits Still Pupil Size: 1= Pupils >than Normal Bone or Joint Aches: 1= Mild Discomfort Runny Nose/ Eye Tearin= None GI Upset > 30mins: 2= Nausea/Diarrhea Tremor Observation: 2= Slight Tremor Visible Yawning Observation: 0= None Anxiety or Irritability: 1=Feels Anxious/Irritable Goose Flesh Skin: 0=Smooth Skin COWS Score: 9 Assessment Plan - Diagnosis (1) Opioid abuse Status: Chronic - Plan Plan: Pt did not use her opioid prescription according to directions- pt overdosed . Talked to outpt prescriber- pain mangament [employer]ENT- Luis Reeder, re pts admission and her overdose. FARM M[employer] AGENT says the pt had been taking medications as prescribed except for an incident last year. d/w pt that she is probably not a candidate to resume percocets. Given her options of suboxone and methadone. Pt states she would like to be on Suboxone- will start 2mg today and increase to 8mg tomorrow and may increase to BID if needed and tolerated. Please call [facility]- , for an initial appt for Suboxone treatment - pt is agreeable for this Rx. d/w floor nurse the above plans. Please feel free to call me if with questions. - Medication Detox Regimen/Protocol: Suboxone
[2018-09-08] MEDS: INSULIN SLIDING SCALE (NOVOLOG) 1 VIAL SQ SCH ×4 (06:59→22:16)
[2018-09-08] MEDS: HEPARIN NA (PORCINE) 5,000 UNITS/ML 1ML VIAL SQ SCH ×2 (06:59→15:10)
[2018-09-08 07:14] LABS: EOS % 0.3 % (0-4.5); HEMOGLOBIN 8.2 GM/dL (10.7-15.3); LYMPH % 8.9 % (8-40); MCH 25.3 pg (25.7-33.7); MCHC 32.7 g/dl (32.0-36.0); MEAN CELL VOLUME 77.3 fl (80-96); MEAN PLT VOLUME 7.6 fl (7.5-11.1); MONO % 7.1 % (3.8-10.2); NEUT % 83.7 % (42.8-82.8); PLATELET COUNT 345 K/MM3 (134-434); RBC 3.24 M/mm3 (3.60-5.2); RDW 17.1 % (11.6-15.6); WHITE BLOOD COUNT 9.6 K/mm3 (4.0-10.0)
[2018-09-08 07:50] LABS: ALBUMIN 1.3 g/dl (3.4-5.0); ALK PHOS 52 U/L (45-117); ANION GAP 16 MMOL/L (8-16); BILIRUBIN,TOTAL 0.5 mg/dL (0.2-1); BLOOD UREA NITROGEN 94 mg/dL (7-18); CALCIUM 7.7 mg/dL (8.5-10.1); CHLORIDE 112 mmol/L (98-107); CO2 16 mmol/L (21-32); CREATININE 2.4 mg/dL (0.55-1.3); GLUCOSE,RANDOM 187 mg/dL (74-106); POTASSIUM 3.6 mmol/L (3.5-5.1); SGOT/AST 84 U/L (15-37); SGPT/ALT 140 U/L (13-61); SODIUM 144 mmol/L (136-145); TOT PROT 4.2 g/dl (6.4-8.2)
[2018-09-08 08:06] LABS: SERUM IRON SATURATION 3 % (15-55); TOTAL IRON BINDING CAPACITY 194 ug/dL (250-450); UIBC 188 ug/dL (131-425)
[2018-09-08 08:13] LABS: MAGNESIUM 1.6 mg/dL (1.8-2.4); PHOSPHOROUS 6.4 mg/dL (2.5-4.9)
[2018-09-08] MEDS ORDERED: CALCITRIOL 0.25 MCG CAPSULE (FP) PO SCH (10:00)
[2018-09-08] MEDS ORDERED: BUPRENORPHINE/NALOXONE 2 MG/0.5 MG FILM PACKET SL ONE (10:00)
[2018-09-08] MEDS: CALCIUM 500MG/VIT-D 200 UNITS COMBO TABLET (FP) PO SCH ×2 (10:10→22:12)
[2018-09-08 10:54] LABS: ANISOCYTOSIS 1+; MACROCYTOSIS 0; PLATELET ESTIMATE NORMAL; TARGET CELLS 1+
[2018-09-08 11:15] LABS: INR 1.62 (0.83-1.09); PROTHROMBIN TIME (PATIENT) 19.2 SEC (9.7-13.0)
[2018-09-08] MEDS ORDERED: MAGNESIUM SULF 50% (8.12 MEQ/2 ML-1 GM VIAL) IVPB ONE (11:15)
[2018-09-08] MEDS ORDERED: MAGNESIUM SULF 50% (8.12 MEQ/2 ML-1 GM VIAL) ONE (13:55)
--- NOTE | 2018-09-08 15:37 | PN ---
Teaching Attending Note Name of Resident: Odette Garcia ATTENDING PHYSICIAN STATEMENT I saw and evaluated the patient. I reviewed the resident's note and discussed the case with the resident. I agree with the resident's findings and plan as documented with exceptions below. SUBJECTIVE: patient seen and examined. Feels better, Reports left hand swelling and vague abdominal pain for 4 weeks. States took percocet for pain control and denies any Suicidal attempt or current SI. OBJECTIVE: Vital Signs Period Temp Pulse Resp BP Sys/Funes Pulse Ox Last 24 Hr 99.1 F-100 F 120-127 18-20 115-132/54-85 100 Intake & Output 09/05/18 09/06/18 09/07/18 09/08/18 23:59 23:59 23:59 23:59 Intake Total 3512 620 Output Total 2500 1000 Balance 1012 -380 Weight 160 lb 160 lb 0.008 oz 160 lb General: sitting in bed, weak, mild lethargy but appropriate with interview Chest: decreased effort, limited exam due to lack of full co-operation, no rales or wheezing appreciated Abdomen:soft, obese, generalized tenderness, no voluntary or involuntary guarding or rigidity, positive bowel sounds Extremities: left hand/UE edema Neuro: PERRL, oriented to self, knows is in [place] but unable to name hospital , oriented to month/year/date, to person, moves all extremities freely Home Medications Medication Instructions Recorded Glimepiride [Amaryl -] 4 mg PO BID 10/26/12 Cholecalciferol (Vitamin D3) 2,000 unit PO DAILY 07/14/14 [Vitamin D3] Fenofibrate Nanocrystallized 145 mg PO DAILY 07/14/14 [Tricor] Insulin Lispro [Humalog] 5 unit SQ AC 07/14/14 Multivitamins [Multivit ([facility] 1 tab PO DAILY 07/14/14 Formulary)] Acarbose [Precose -] 25 mg PO TID 06/25/18 Duloxetine HCl [Cymbalta] 30 mg PO DAILY 06/25/18 Omeprazole 20 mg PO DAILY 06/27/18 Ferrous Sulfate [Feosol] 325 mg PO DAILY #30 ud 07/15/18 Insulin Aspart [Novolog Flexpen] See Protocol SQ ACHS #5 insuln.pen 07/15/18 Mesalamine [Asacol HD -] 800 mg PO TID #60 tablet. 07/15/18 Oxycodone HCl 5 mg PO Q6H #8 tablet MDD 2 07/15/18 Apixaban [Eliquis] 5 mg PO BID #60 tablet 08/06/18 Lisinopril 2.5 mg PO DAILY #30 tablet 08/06/18 Metformin HCl 850 mg PO BID 09/07/18 Oxycodone HCl/Acetaminophen 1 each PO TID PRN 09/07/18 [Percocet 10-325 mg Tablet] Pravastatin Sodium [Pravachol (Nf)] 80 mg PO HS 09/07/18 Sitagliptin Phosphate [Januvia] 100 mg PO DAILY 09/07/18 Active Medications Buprenorphine/Naloxone (Suboxone 8mg/2mg Sl Film -) 1 each SL DAILY [facility] Calcitriol (Rocaltrol -) 0.5 mcg PO DAILY [facility] Last Admin: 09/08/18 10:09 Dose: 0.5 mcg Calcium Carbonate/Cholecalciferol (Os-Willy 500+D -) 2 tab PO BID [facility] Last Admin: 09/08/18 10:10 Dose: 2 tab Heparin Sodium (Porcine) (Heparin -) 5,000 unit SQ TID [facility] Last Admin: 09/08/18 15:10 Dose: 5,000 unit Sodium Chloride (1/2 Normal Saline) 1,000 mls @ 150 mls/hr IV ASDIR [facility] Last Admin: 09/07/18 23:21 Dose: 150 mls/hr Insulin Aspart (Novolog Vial Sliding Scale -) 1 vial SQ ACHS [facility]; Protocol Last Admin: 09/08/18 11:47 Dose: Not Given Laboratory Results - last 24 hr 09/06/18 09/07/18 09/07/18 20:00 18:00 18:00 WBC RBC Hgb Hct MCV MCH MCHC RDW Plt Count MPV Absolute Neuts (auto) Neutrophils % Neutrophils % (Manual) Band Neutrophils % Lymphocytes % Lymphocytes % (Manual) Monocytes % Monocytes % (Manual) Eosinophils % Eosinophils % (Manual) Basophils % Basophils % (Manual) Myelocytes % (Man) Promyelocytes % (Man) Blast Cells % (Manual) Nucleated RBC % Metamyelocytes Hypochromia Platelet Estimate Polychromasia Poikilocytosis Anisocytosis Microcytosis Macrocytosis Target Cells PT with INR INR Sodium 145 Potassium 4.3 Chloride 113 H Carbon Dioxide 15 L Anion Gap 17 H BUN 103 H Creatinine 3.0 H Creat Clearance w eGFR 15.97 POC Glucometer Random Glucose 147 H Calcium 7.2 L Phosphorus Magnesium Iron 6 L TIBC 194 L Iron Saturation 3 L Total Bilirubin 0.6 Direct Bilirubin 0.3 H AST 167 H ALT 198 H Alkaline Phosphatase 60 Creatine Kinase 3406 H Creatine Kinase Index 0.4 CK-MB (CK-2) 16.9 H Total Protein 4.6 L Albumin 1.5 L Acetaminophen 4.9 L Cancelled 09/07/18 09/07/18 09/07/18 18:00 18:00 18:00 WBC RBC Hgb Hct MCV MCH MCHC RDW Plt Count MPV Absolute Neuts (auto) Neutrophils % Neutrophils % (Manual) Band Neutrophils % Lymphocytes % Lymphocytes % (Manual) Monocytes % Monocytes % (Manual) Eosinophils % Eosinophils % (Manual) Basophils % Basophils % (Manual) Myelocytes % (Man) Promyelocytes % (Man) Blast Cells % (Manual) Nucleated RBC % Metamyelocytes Hypochromia Platelet Estimate Polychromasia Poikilocytosis Anisocytosis Microcytosis Macrocytosis Target Cells PT with INR INR Sodium Potassium Chloride Carbon Dioxide Anion Gap BUN Creatinine Creat Clearance w eGFR POC Glucometer Random Glucose Calcium Phosphorus Magnesium Iron TIBC Iron Saturation Total Bilirubin Cancelled Direct Bilirubin Cancelled AST Cancelled Cancelled ALT Cancelled Cancelled Alkaline Phosphatase Cancelled Creatine Kinase Creatine Kinase Index Cancelled CK-MB (CK-2) Cancelled Total Protein Cancelled Albumin Cancelled Acetaminophen 09/07/18 09/07/18 09/08/18 18:20 23:20 06:45 WBC RBC Hgb Hct MCV MCH MCHC RDW Plt Count MPV Absolute Neuts (auto) Neutrophils % Neutrophils % (Manual) Band Neutrophils % Lymphocytes % Lymphocytes % (Manual) Monocytes % Monocytes % (Manual) Eosinophils % Eosinophils % (Manual) Basophils % Basophils % (Manual) Myelocytes % (Man) Promyelocytes % (Man) Blast Cells % (Manual) Nucleated RBC % Metamyelocytes Hypochromia Platelet Estimate Polychromasia Poikilocytosis Anisocytosis Microcytosis Macrocytosis Target Cells PT with INR INR Sodium Potassium Chloride Carbon Dioxide Anion Gap BUN Creatinine Creat Clearance w eGFR POC Glucometer 172.03017 234 Random Glucose Calcium Phosphorus 6.4 H Magnesium 1.6 L Iron TIBC Iron Saturation Total Bilirubin Direct Bilirubin AST ALT Alkaline Phosphatase Creatine Kinase 1228 H Creatine Kinase Index 0.4 CK-MB (CK-2) 5.7 H Total Protein Albumin Acetaminophen 09/08/18 09/08/18 09/08/18 06:45 06:45 06:58 WBC 9.6 RBC 3.24 L Hgb 8.2 L Hct 25.0 L MCV 77.3 L MCH 25.3 L MCHC 32.7 RDW 17.1 H Plt Count 345 MPV 7.6 Absolute Neuts (auto) 8.1 H Neutrophils % 83.7 H Neutrophils % (Manual) 84.0 H Band Neutrophils % 3.0 Lymphocytes % 8.9 Lymphocytes % (Manual) 6.0 L D Monocytes % 7.1 Monocytes % (Manual) 7 Eosinophils % 0.3 Eosinophils % (Manual) 0.0 Basophils % 0.0 Basophils % (Manual) 0.0 Myelocytes % (Man) 0 D Promyelocytes % (Man) 0 Blast Cells % (Manual) 0 Nucleated RBC % 0 Metamyelocytes 0 D Hypochromia 1+ Platelet Estimate Normal Polychromasia 1+ Poikilocytosis 1+ Anisocytosis 1+ Microcytosis 1+ Macrocytosis 0 Target Cells 1+ PT with INR INR Sodium 144 Potassium 3.6 Chloride 112 H Carbon Dioxide 16 L Anion Gap 16 BUN 94 H Creatinine 2.4 H Creat Clearance w eGFR 20.66 POC Glucometer 216 Random Glucose 187 H Calcium 7.7 L Phosphorus Magnesium Iron TIBC Iron Saturation Total Bilirubin 0.5 Direct Bilirubin AST 84 H ALT 140 H Alkaline Phosphatase 52 Creatine Kinase Creatine Kinase Index CK-MB (CK-2) Total Protein 4.2 L Albumin 1.3 L Acetaminophen 6.2 L 09/08/18 09/08/18 09/08/18 10:20 10:20 11:42 WBC RBC Hgb Hct MCV MCH MCHC RDW Plt Count MPV Absolute Neuts (auto) Neutrophils % Neutrophils % (Manual) Band Neutrophils % Lymphocytes % Lymphocytes % (Manual) Monocytes % Monocytes % (Manual) Eosinophils % Eosinophils % (Manual) Basophils % Basophils % (Manual) Myelocytes % (Man) Promyelocytes % (Man) Blast Cells % (Manual) Nucleated RBC % Metamyelocytes Hypochromia Platelet Estimate Polychromasia Poikilocytosis Anisocytosis Microcytosis Macrocytosis Target Cells PT with INR 19.20 H INR 1.62 H Sodium Potassium Chloride Carbon Dioxide Anion Gap BUN Creatinine Creat Clearance w eGFR POC Glucometer 147 Random Glucose Calcium Phosphorus Magnesium Iron TIBC Iron Saturation Total Bilirubin Direct Bilirubin AST ALT Alkaline Phosphatase Creatine Kinase Creatine Kinase Index CK-MB (CK-2) Total Protein Albumin Acetaminophen 4.5 L renal/bladder US noted CT A/P results reviewed ASSESSMENT AND PLAN: 58 yo F with PMHx of Gastric bypass (?2004), recurrent anemia, prior EGD/ colonoscopy in 05/2018 showing gastric ulcers at anastomotic site/Possible ischemic colitis, recent RLE DVT on eliquis, IDDM, HTN, chronic diarrhea, opioid dependence, brought to the ER with lethargy and anorexia. was recently prescribed percocet by per aircraft painter. She was prescribed 90 pills and there was only 10 remaining after 4 days -Intention percocet Overdose (denies SI or suicidal attempt, reports for pain control) -ELLA, multifactoria from dehydration/rhabdomyolysis/acidosis -Anion gap metabolic acidosis -Rhabdomyolysis -Tachycardia -Acute toxic metabolic encephalopathy, multifactorial from above -Acute LUE cephalic vein thrombosis, limited visualization of remaining veins -Transaminitis, resolving -Left sided abdominal pain -Normocytic anemia -Hyperkalemia -NIDDM -h/o gastric bypass -h/o DVT on eliquis -H/o gastric ulcers/ischemic colitis -HTN -Opioid dependence Plan: Tylenol levels this AM noted, but lfts/coags improved. Discussed with poison control, repeat levels improving. Monitor of NAC drip. Will repeat levels later today to ensure trending down. Daily lfts/coags. Renal input noted. IVF per renal. Renal/bladder US noted. Trend CPK. Start heparin drip. transition to eliquis if renal function normalizes.Monitor h /h. PPI. K normalized. Psych consult, 1:1 observation. Detox input noted, not a candidate for percocet, suboxone. CT A/P results reviewed. serial exams and clinical monitoring. ISS, diabetic diet. hold oral agents Check EKG DVTPPX heparin drip Dispo pending clinical improvement. Plan discussed with patient in detail, all questions answered.
[2018-09-08] MEDS ORDERED: HEPARIN INFUSION - 25,000 UNITS/500 ML INFUS.BAG IVPB SCH (15:45)
[2018-09-08] MEDS ORDERED: SODIUM CHLORIDE 0.45% 1,000 ML IV SCH (16:27)
--- NOTE | 2018-09-08 16:27 | PN ---
Progress Note, Physician History of Present Illness: Pt seen and examined at bedside. She is awake and more alert. She denies shortness of breath. - Current Medication List Current Medications: Active Medications Buprenorphine/Naloxone (Suboxone 8mg/2mg Sl Film -) 1 each SL DAILY [facility] Calcitriol (Rocaltrol -) 0.5 mcg PO DAILY [facility] Last Admin: 09/08/18 10:09 Dose: 0.5 mcg Calcium Carbonate/Cholecalciferol (Os-Willy 500+D -) 2 tab PO BID [facility] Last Admin: 09/08/18 10:10 Dose: 2 tab Sodium Chloride (1/2 Normal Saline) 1,000 mls @ 150 mls/hr IV ASDIR [facility] Last Admin: 09/07/18 23:21 Dose: 150 mls/hr Heparin Sodium/Dextrose (Heparin Infusion -) 500 mls @ 20 mls/hr IVPB TITR [facility] ; Protocol Insulin Aspart (Novolog Vial Sliding Scale -) 1 vial SQ ACHS [facility]; Protocol Last Admin: 09/08/18 11:47 Dose: Not Given - Objective Vital Signs: Vital Signs Temperature 99.1 F 09/08/18 10:00 Pulse Rate 125 H 09/08/18 15:25 Respiratory Rate 20 09/08/18 15:25 Blood Pressure 132/72 09/08/18 15:25 O2 Sat by Pulse Oximetry (%) 100 09/07/18 21:00 Constitutional: Yes: Calm Eyes: Yes: Conjunctiva Clear HENT: Yes: Atraumatic Cardiovascular: Yes: S1, S2 Respiratory: Yes: CTA Bilaterally Gastrointestinal: Yes: Soft Genitourinary: Yes: La Present Musculoskeletal: Yes: WNL Edema: No Neurological: Yes: Oriented Psychiatric: Yes: Oriented Labs: CBC, BMP 09/08/18 06:45 09/08/18 06:45 INR, PTT INR 1.62 (0.83-1.09) H 09/08/18 10:20 Problem List - Problems (1) ARF (acute renal failure) Code(s): N17.9 - ACUTE KIDNEY FAILURE, UNSPECIFIED Qualifiers: Acute renal failure type: unspecified Qualified Code(s): N17.9 - Acute kidney failure, unspecified (2) Acetaminophen toxicity Code(s): T39.1X1A - POISONING BY 4-AMINOPHENOL DERIVATIVES, ACCIDENTAL, INIT Qualifiers: Encounter type: initial encounter Injury intent: undetermined intent Qualified Code(s): T39.1X4A - Poisoning by 4-Aminophenol derivatives, undetermined, initial encounter (3) Fever Code(s): R50.9 - FEVER, UNSPECIFIED Qualifiers: Fever type: unspecified Qualified Code(s): R50.9 - Fever, unspecified (4) Hyperkalemia Code(s): E87.5 - HYPERKALEMIA (5) Rhabdomyolysis Code(s): M62.82 - RHABDOMYOLYSIS Qualifiers: Rhabdomyolysis type: non-traumatic Qualified Code(s): M62.82 - Rhabdomyolysis Assessment/Plan Current Medications Generic Name Dose Route Start Last Admin Trade Name Freq PRN Reason Stop Dose Admin Buprenorphine/Naloxone 1 each 09/09/18 10:00 Suboxone 8mg/2mg Sl Film - SL DAILY [facility] Calcitriol 0.5 mcg 09/08/18 10:00 09/08/18 10:09 Rocaltrol - PO 0.5 mcg DAILY [facility] Administration Calcium Carbonate/Cholecalciferol 2 tab 09/07/18 22:00 09/08/18 10:10 Os-Willy 500+D - PO 2 tab BID [facility] Administration Sodium Chloride 1,000 mls @ 150 mls/hr 09/07/18 21:28 09/07/18 23:21 1/2 Normal Saline IV 150 mls/hr ASDIR [facility] Administration Heparin Sodium/Dextrose 500 mls @ 20 mls/hr 09/08/18 15:45 Heparin Infusion - IVPB TITR [facility] Protocol 1,000 UNITS/HR Insulin Aspart 1 vial 09/07/18 22:00 09/08/18 11:47 Novolog Vial Sliding Scale - SQ Not Given ACHS [facility] Protocol Laboratory Tests 09/06/18 09/06/18 09/07/18 15:48 20:00 18:00 Creatine Kinase 9096 H 8182 H 3406 H EFFIE M-Claudio FRANSISCA Screen c-ANCA Proteinase 3 (PR3) p-ANCA Atypical p-ANCA Myeloperoxidase Ab Double Strand DNA Ab 09/08/18 09/08/18 06:45 06:45 Creatine Kinase 1228 H EFFIE M-Claudio Pending FRANSISCA Screen Pending c-ANCA Pending Proteinase 3 (PR3) Pending p-ANCA Pending Atypical p-ANCA Pending Myeloperoxidase Ab Pending Double Strand DNA Ab Pending Impression 1. ELLA 2. hyperkalemia 3. drug overdose 4. tylenol toxicity 5. rhabdo 6. opioid dependence 7. microscopic hematuria 8. anemia 9. HTN 10. DM 11. hypocalcemia Plan - cpk is improving - decrease rate of fluids to 75 (pt will also be getting volume from the heparin ) - renal function is improving - monitor urine output - replace lytes - renal workup in progress - renal ultrasound reviewed
[2018-09-08] MEDS ORDERED: HEPARIN NA (PORCINE) 5,000 UNITS/ML 1ML VIAL IVPUSH PRN (16:58)
[2018-09-08] MEDS ORDERED: HEPARIN NA (PORCINE) 5,000 UNITS/ML 1ML VIAL IVPUSH ONE (16:58)
--- NOTE | 2018-09-08 17:55 | PN ---
Mental Health Exam - Mental Status Exam Alert and Oriented to: Place ([facility]? ), Person (BY DISORIENTATED BY 2`. ) Cognitive Function: Impaired (CONFABULATING OR UNAB,LE TO FIND WORDS) Patient Appearance: Well Groomed Mood: Euthymic Affect: Constricted (DOES NOT SHPW EMOTION. ) Patient Behavior: Dependent, Passive (WITH ADIDE, NOT EATING ALONE. ), Cooperative Speech Pattern: Delayed (ANSWERS TO QUESTIONS. ) Voice Loudness: Mildly Soft/Quiet, Limited Variation Thought Process: Loose Associations Thought Disorder: Not Present Hallucinations: None, Denies Suicidal Ideation: None, Denies Homicidal Ideation: None, Denies Insight/Judgement: Poor Sleep: Fair Appetite: Fair Muscle strength/Tone: Normal Gait/Station: Deferred Additional Comments: COMPLETED CLOCK DRAWING TEST NUMBERS IN WRONG PLACES, POINTS TO SENILITY
--- NOTE | 2018-09-08 18:09 | PN ---
Progress Note (short form) - Note Progress Note: PATIENT IS 58 YO FEMALE WITH NO PAST PSYCH HISTORY TO TOOK MULTIPLE EXTRA OXYCODONE TABS THAT SHE IS PRESCRIBED FOR SHOLDER PAIN?, FOUND BY HER BOYFRIEND. REPORT BY CHET Grier THAT SHE IS PASSIVE ON UNIT, SAD AFFECT, ONLY TALKS WHEN SPOKEN TO, NOW ON 1;1, HAS NOT WALKED YET. cLIENT IS POOR HISTORIAN, BUT NO PSYCHIATRIC HISTORY, NOW ON SUBOXONE DURING OPIATE WITHRAWL. cLIENT IS ALERT BUT DISORIENTATED BY 2, DOES NOT KNOW DATE, HOLIDAY OR HOSPITAL. CONFBULATES OR SMILES INCONGRUENT AFFECT. POOR CLOCK TEST DRAWING LIKE NUMBERS IN WRONG PLACE. nO AGITATION, DENIES SUICIDAL OR HOMICIDAL IDEATION. NO PSYCHOSIS, DENIES DEPRESSION, NO ANXIETY . Problem List - Problems (1) Memory loss or impairment Code(s): R41.3 - OTHER AMNESIA
[2018-09-08 19:03] LABS: ALBUMIN 1.4 g/dl (3.4-5.0); ALK PHOS 53 U/L (45-117); ANION GAP 13 MMOL/L (8-16); BILIRUBIN,TOTAL 0.4 mg/dL (0.2-1); BLOOD UREA NITROGEN 85 mg/dL (7-18); CALCIUM 8.2 mg/dL (8.5-10.1); CHLORIDE 109 mmol/L (98-107); CO2 17 mmol/L (21-32); CREATININE 2.1 mg/dL (0.55-1.3); GLUCOSE,RANDOM 144 mg/dL (74-106); POTASSIUM 3.4 mmol/L (3.5-5.1); SGOT/AST 58 U/L (15-37); SGPT/ALT 115 U/L (13-61); SODIUM 140 mmol/L (136-145); TOT PROT 4.2 g/dl (6.4-8.2)
[2018-09-08 19:05] LABS: ANION GAP 16 MMOL/L (8-16); BLOOD UREA NITROGEN 84 mg/dL (7-18); CALCIUM 8.1 mg/dL (8.5-10.1); CHLORIDE 109 mmol/L (98-107); CO2 17 mmol/L (21-32); GLUCOSE,RANDOM 144 mg/dL (74-106); POTASSIUM 3.4 mmol/L (3.5-5.1); SODIUM 142 mmol/L (136-145)
--- NOTE | 2018-09-08 19:27 | PN ---
Physical Exam: SUBJECTIVE: Patient seen and examined at bedside this morning. No acute events overnight. Patient reports feeling okay, but complains of abdominal pain when attempted to do physical exam. OBJECTIVE: Vital Signs Period Temp Pulse Resp BP Sys/Funes Pulse Ox Last 24 Hr 99.1 F-100 F 120-127 18-20 115-132/54-85 100 GENERAL: The patient is awake, alert, and orientedx2, in no acute distress. HEAD: Normal with no signs of trauma. EYES: PERRLA, EOMI, sclera anicteric, conjunctiva clear. NECK: Trachea midline, full range of motion, supple. LUNGS: Breath sounds equal, clear to auscultation bilaterally. HEART: Regular rate and rhythm, S1, S2 without murmur, rub or gallop. ABDOMEN: pt refused to have abdomen examined. EXTREMITIES: 2+ pulses, warm, well-perfused, no edema. SKIN: Warm, dry, normal turgor, no rashes or lesions noted Laboratory Results - last 24 hr 09/06/18 09/07/18 09/07/18 20:00 18:00 18:00 WBC RBC Hgb Hct MCV MCH MCHC RDW Plt Count MPV Absolute Neuts (auto) Neutrophils % Neutrophils % (Manual) Band Neutrophils % Lymphocytes % Lymphocytes % (Manual) Monocytes % Monocytes % (Manual) Eosinophils % Eosinophils % (Manual) Basophils % Basophils % (Manual) Myelocytes % (Man) Promyelocytes % (Man) Blast Cells % (Manual) Nucleated RBC % Metamyelocytes Hypochromia Platelet Estimate Polychromasia Poikilocytosis Anisocytosis Microcytosis Macrocytosis Target Cells PT with INR INR Sodium 145 Potassium 4.3 Chloride 113 H Carbon Dioxide 15 L Anion Gap 17 H BUN 103 H Creatinine 3.0 H Creat Clearance w eGFR 15.97 POC Glucometer Random Glucose 147 H Calcium 7.2 L Phosphorus Magnesium Iron 6 L TIBC 194 L Iron Saturation 3 L Total Bilirubin 0.6 Cancelled Direct Bilirubin 0.3 H Cancelled AST 167 H Cancelled ALT 198 H Cancelled Alkaline Phosphatase 60 Cancelled Creatine Kinase 3406 H Creatine Kinase Index 0.4 CK-MB (CK-2) 16.9 H Total Protein 4.6 L Cancelled Albumin 1.5 L Cancelled Acetaminophen 4.9 L 09/07/18 09/07/18 09/07/18 18:00 18:00 23:20 WBC RBC Hgb Hct MCV MCH MCHC RDW Plt Count MPV Absolute Neuts (auto) Neutrophils % Neutrophils % (Manual) Band Neutrophils % Lymphocytes % Lymphocytes % (Manual) Monocytes % Monocytes % (Manual) Eosinophils % Eosinophils % (Manual) Basophils % Basophils % (Manual) Myelocytes % (Man) Promyelocytes % (Man) Blast Cells % (Manual) Nucleated RBC % Metamyelocytes Hypochromia Platelet Estimate Polychromasia Poikilocytosis Anisocytosis Microcytosis Macrocytosis Target Cells PT with INR INR Sodium Potassium Chloride Carbon Dioxide Anion Gap BUN Creatinine Creat Clearance w eGFR POC Glucometer 234 Random Glucose Calcium Phosphorus Magnesium Iron TIBC Iron Saturation Total Bilirubin Direct Bilirubin AST Cancelled ALT Cancelled Alkaline Phosphatase Creatine Kinase Creatine Kinase Index Cancelled CK-MB (CK-2) Cancelled Total Protein Albumin Acetaminophen 09/08/18 09/08/18 09/08/18 06:45 06:45 06:45 WBC 9.6 RBC 3.24 L Hgb 8.2 L Hct 25.0 L MCV 77.3 L MCH 25.3 L MCHC 32.7 RDW 17.1 H Plt Count 345 MPV 7.6 Absolute Neuts (auto) 8.1 H Neutrophils % 83.7 H Neutrophils % (Manual) 84.0 H Band Neutrophils % 3.0 Lymphocytes % 8.9 Lymphocytes % (Manual) 6.0 L D Monocytes % 7.1 Monocytes % (Manual) 7 Eosinophils % 0.3 Eosinophils % (Manual) 0.0 Basophils % 0.0 Basophils % (Manual) 0.0 Myelocytes % (Man) 0 D Promyelocytes % (Man) 0 Blast Cells % (Manual) 0 Nucleated RBC % 0 Metamyelocytes 0 D Hypochromia 1+ Platelet Estimate Normal Polychromasia 1+ Poikilocytosis 1+ Anisocytosis 1+ Microcytosis 1+ Macrocytosis 0 Target Cells 1+ PT with INR INR Sodium 144 Potassium 3.6 Chloride 112 H Carbon Dioxide 16 L Anion Gap 16 BUN 94 H Creatinine 2.4 H Creat Clearance w eGFR 20.66 POC Glucometer Random Glucose 187 H Calcium 7.7 L Phosphorus 6.4 H Magnesium 1.6 L Iron TIBC Iron Saturation Total Bilirubin 0.5 Direct Bilirubin AST 84 H ALT 140 H Alkaline Phosphatase 52 Creatine Kinase 1228 H Creatine Kinase Index 0.4 CK-MB (CK-2) 5.7 H Total Protein 4.2 L Albumin 1.3 L Acetaminophen 6.2 L 09/08/18 09/08/18 09/08/18 06:58 10:20 10:20 WBC RBC Hgb Hct MCV MCH MCHC RDW Plt Count MPV Absolute Neuts (auto) Neutrophils % Neutrophils % (Manual) Band Neutrophils % Lymphocytes % Lymphocytes % (Manual) Monocytes % Monocytes % (Manual) Eosinophils % Eosinophils % (Manual) Basophils % Basophils % (Manual) Myelocytes % (Man) Promyelocytes % (Man) Blast Cells % (Manual) Nucleated RBC % Metamyelocytes Hypochromia Platelet Estimate Polychromasia Poikilocytosis Anisocytosis Microcytosis Macrocytosis Target Cells PT with INR 19.20 H INR 1.62 H Sodium Potassium Chloride Carbon Dioxide Anion Gap BUN Creatinine Creat Clearance w eGFR POC Glucometer 216 Random Glucose Calcium Phosphorus Magnesium Iron TIBC Iron Saturation Total Bilirubin Direct Bilirubin AST ALT Alkaline Phosphatase Creatine Kinase Creatine Kinase Index CK-MB (CK-2) Total Protein Albumin Acetaminophen 4.5 L 09/08/18 09/08/18 09/08/18 11:42 16:38 18:00 WBC RBC Hgb Hct MCV MCH MCHC RDW Plt Count MPV Absolute Neuts (auto) Neutrophils % Neutrophils % (Manual) Band Neutrophils % Lymphocytes % Lymphocytes % (Manual) Monocytes % Monocytes % (Manual) Eosinophils % Eosinophils % (Manual) Basophils % Basophils % (Manual) Myelocytes % (Man) Promyelocytes % (Man) Blast Cells % (Manual) Nucleated RBC % Metamyelocytes Hypochromia Platelet Estimate Polychromasia Poikilocytosis Anisocytosis Microcytosis Macrocytosis Target Cells PT with INR INR Sodium 142 Potassium 3.4 L Chloride 109 H Carbon Dioxide 17 L Anion Gap 16 BUN 84 H Creatinine 2.0 H Creat Clearance w eGFR 25.50 POC Glucometer 147 147 Random Glucose 144 H Calcium 8.1 L Phosphorus Magnesium Iron TIBC Iron Saturation Total Bilirubin Direct Bilirubin AST ALT Alkaline Phosphatase Creatine Kinase 679 H Creatine Kinase Index CK-MB (CK-2) Total Protein Albumin Acetaminophen 09/08/18 18:00 WBC RBC Hgb Hct MCV MCH MCHC RDW Plt Count MPV Absolute Neuts (auto) Neutrophils % Neutrophils % (Manual) Band Neutrophils % Lymphocytes % Lymphocytes % (Manual) Monocytes % Monocytes % (Manual) Eosinophils % Eosinophils % (Manual) Basophils % Basophils % (Manual) Myelocytes % (Man) Promyelocytes % (Man) Blast Cells % (Manual) Nucleated RBC % Metamyelocytes Hypochromia Platelet Estimate Polychromasia Poikilocytosis Anisocytosis Microcytosis Macrocytosis Target Cells PT with INR INR Sodium 140 Potassium 3.4 L Chloride 109 H Carbon Dioxide 17 L Anion Gap 13 BUN 85 H Creatinine 2.1 H Creat Clearance w eGFR 24.11 POC Glucometer Random Glucose 144 H Calcium 8.2 L Phosphorus Magnesium Iron TIBC Iron Saturation Total Bilirubin 0.4 Direct Bilirubin AST 58 H ALT 115 H Alkaline Phosphatase 53 Creatine Kinase Creatine Kinase Index CK-MB (CK-2) Total Protein 4.2 L Albumin 1.4 L Acetaminophen Active Medications Generic Name Dose Route Start Last Admin Trade Name Freq PRN Reason Stop Dose Admin Buprenorphine/Naloxone 1 each 09/09/18 10:00 Suboxone 8mg/2mg Sl Film - SL DAILY YAMILKA Calcitriol 0.5 mcg 09/08/18 10:00 09/08/18 10:09 Rocaltrol - PO 0.5 mcg DAILY YAMILKA Administration Calcium Carbonate/Cholecalciferol 2 tab 09/07/18 22:00 09/08/18 10:10 Os-Willy 500+D - PO 2 tab BID YAMILKA Administration Heparin Sodium (Porcine) 5,000 unit 09/08/18 16:58 Heparin - IVPUSH PRN PRN Heparin Heparin Sodium (Porcine) 1,000 unit 09/08/18 16:58 Heparin - IVPUSH PRN PRN Heparin Heparin Sodium/Dextrose 25,000 units in 500 mls @ 20 mls/hr 09/08/18 15:45 19:08 Heparin Infusion - IVPB 1,000 units/hr TITR YAMILKA 20 mls/hr Administration Protocol 1,000 UNITS/HR Sodium Chloride 1,000 mls @ 75 mls/hr 09/08/18 16:27 09/08/18 18:19 1/2 Normal Saline IV 75 mls/hr ASDIR YAMILKA Administration Insulin Aspart 1 vial 09/07/18 22:00 09/08/18 16:40 Novolog Vial Sliding Scale - SQ Not Given ACHS YAMILKA Protocol ASSESSMENT/PLAN: Patient is a 58 year old female with a significant past medical history of opiate abuse, HTN, IDDM, s/p gastric bypass, recurrent anemia, gastric ulcer, possible ischemic colitis, chronic diarrhea, DVT on Eliquis who was BIBA due to altered mental status and poor PO intake. #Altered mental status: likely 2/2 to Uremia 2/2 Acetaminophen toxicity -Patient reportedly took 80 tablets of percocet in the last 5 days. It is unknown if patient took it at the same time or was distributed over 5 days or last intake. -Acetaminophen level 9.2 on admission, repeat level today is 4.5 -Will continue to monitor Acetaminophen level -Urine toxicology: +opiates -Poison control contacted, NAC can be discontinued as LFTs are improving -Continue 1/2 NS @75ml/hr. #Transaminitis 2/2 Acetominophen toxicity -AST/ALT on admission: 421/266; trending down 84/140 -Will monitor #ELLA/Rhabdomyolysis -BUN/CR 137/4.8 on admission, trending down 119/3.5 -CK 8182, trending down, will monitor CK level BID -IVF given -Nephrology (Dr. Calderón) consulted. Recommendations appreciated: - cpk is improving - decrease rate of fluids to 75 (pt will also be getting volume from the heparin ) - renal function is improving - monitor urine output - replace lytes - renal workup in progress #Opioid abuse -Dr. Rich consulted. REcommendations appreciated: -Pt is probably not a candidate to resume percocets. -Suboxone- will start 2mg today and increase to 8mg tomorrow and may increase to BID if needed and tolerated. -Please call [facility]- , for an initial appt for Suboxone treatment- pt is agreeable for this Rx. #Hx of DVT -On eliquis, put on hold due to renal function -Started Heparin drip -Will transition back to Eliquis when renal function normalizes #?Suicide risk -Psychiatrist (Dr. Watts) consulted. Case referred to [facility]. -Recommendations appreciated: -No agitation, denies suicidal or homicidal ideation. No psychosis, denies depression or anxiety. #Hyperkalemia: resolved -6.3 on admission -Received Calcium Gluconate, Insulin +D5W, Albuterol, and Sodium Bicarb -repeat K 4.4 -will continue to monitor #Hypocalcemia: improving -Ca 5.5 on admission,Ca today 7.7 -Continue PO Calcium and Vit D -Will monitor #DM -Insulin Sliding Scale -BGM ACHS #FEN -1/2NS@75cc/hr -routine cmp monitoring -diabetic diet #Prophylaxis -patient was on eliquis. Held due to ARF -Heparin drip #Disposition -transfer to tele Visit type - Emergency Visit Emergency Visit: Yes ED Registration Date: 09/06/18 Care time: The patient presented to the Emergency Department on the above date and was hospitalized for further evaluation of their emergent condition. - New Patient This patient is new to me today: Yes Date on this admission: 09/09/18 - Critical Care Critical Care patient: No
[2018-09-08] MEDS: BUPRENORPHINE/NALOXONE 2 MG/0.5 MG FILM PACKET SL ONE ×2 (22:12→22:49)
[2018-09-08] MEDS: HEPARIN INFUSION - 25,000 UNITS/500 ML INFUS.BAG IVPB SCH (23:15)
[2018-09-09] MEDS: HEPARIN NA (PORCINE) 5,000 UNITS/ML 1ML VIAL IVPUSH PRN ×2 (02:37→22:40)
[2018-09-09] MEDS: INSULIN SLIDING SCALE (NOVOLOG) 1 VIAL SQ SCH ×4 (06:26→22:45)
[2018-09-09 07:02] LABS: BASO % 0.2 % (0-2.0); EOS % 1.6 % (0-4.5); HEMATOCRIT 24.2 % (32.4-45.2); HEMOGLOBIN 7.5 GM/dL (10.7-15.3); LYMPH % 10.3 % (8-40); MCH 24.2 pg (25.7-33.7); MCHC 30.9 g/dl (32.0-36.0); MEAN CELL VOLUME 78.4 fl (80-96); MEAN PLT VOLUME 7.7 fl (7.5-11.1); MONO % 7.9 % (3.8-10.2); PLATELET COUNT 276 K/MM3 (134-434); RBC 3.09 M/mm3 (3.60-5.2); RDW 17.1 % (11.6-15.6); WHITE BLOOD COUNT 12.1 K/mm3 (4.0-10.0)
--- NOTE | 2018-09-09 07:33 | PN ---
Teaching Attending Note Name of Resident: Odette Garcia ATTENDING PHYSICIAN STATEMENT I saw and evaluated the patient. I reviewed the resident's note and discussed the case with the resident. I agree with the resident's findings and plan as documented with exceptions below. SUBJECTIVE: Patient seen and examined. much more awake, conversant, no new complaints. Asking about her eliquis. OBJECTIVE: Vital Signs Period Temp Pulse Resp BP Sys/Funes Pulse Ox Last 24 Hr 98.1 F-99.1 F 115-125 18-20 115-141/57-85 96-96 Intake & Output 09/06/18 09/07/18 09/08/18 09/09/18 23:59 23:59 23:59 23:59 Intake Total 3512 620 928.5 Output Total 2500 1900 800 Balance 1012 -1280 128.5 Weight 160 lb 160 lb 0.008 oz 160 lb General: sitting in bed in no acute distress Chest: CTAB, no rales or wheezing Abdomen: soft, obese, inconsistent exam, yesterday left sided tenderness, today right sided tenderness on initial palpation, then non tender when distracted, no voluntary or involuntary guarding or rigidity, positive bowel sounds Extremities: left hand edema improved Active Medications Buprenorphine/Naloxone (Suboxone 8mg/2mg Sl Film -) 1 each SL DAILY [facility] Calcitriol (Rocaltrol -) 0.5 mcg PO DAILY [facility] Calcium Carbonate/Cholecalciferol (Os-Willy 500+D -) 2 tab PO BID [facility] Heparin Sodium (Porcine) (Heparin -) 5,000 unit IVPUSH PRN PRN PRN Reason: Heparin Last Admin: 09/09/18 02:37 Dose: 5,000 unit Heparin Sodium (Porcine) (Heparin -) 1,000 unit IVPUSH PRN PRN PRN Reason: Heparin Sodium Chloride (1/2 Normal Saline) 1,000 mls @ 75 mls/hr IV ASDIR YAMILKA Last Admin: 09/08/18 18:19 Dose: 75 mls/hr Heparin Sodium/Dextrose (Heparin Infusion -) 25,000 units in 500 mls @ 20 mls/ hr IVPB TITR [facility]; Protocol Last Titration: 09/09/18 02:37 Dose: 1,150 units/hr, 23 mls/hr Insulin Aspart (Novolog Vial Sliding Scale -) 1 vial SQ ACHS [facility]; Protocol Last Admin: 09/09/18 06:26 Dose: 2 units Laboratory Results - last 24 hr 09/06/18 09/08/18 09/08/18 20:00 06:45 06:45 WBC 9.6 RBC 3.24 L Hgb 8.2 L Hct 25.0 L MCV 77.3 L MCH 25.3 L MCHC 32.7 RDW 17.1 H Plt Count 345 MPV 7.6 Absolute Neuts (auto) 8.1 H Neutrophils % 83.7 H Neutrophils % (Manual) 84.0 H Band Neutrophils % 3.0 Lymphocytes % 8.9 Lymphocytes % (Manual) 6.0 L D Monocytes % 7.1 Monocytes % (Manual) 7 Eosinophils % 0.3 Eosinophils % (Manual) 0.0 Basophils % 0.0 Basophils % (Manual) 0.0 Myelocytes % (Man) 0 D Promyelocytes % (Man) 0 Blast Cells % (Manual) 0 Nucleated RBC % 0 Metamyelocytes 0 D Hypochromia 1+ Platelet Estimate Normal Polychromasia 1+ Poikilocytosis 1+ Anisocytosis 1+ Microcytosis 1+ Macrocytosis 0 Target Cells 1+ PT with INR INR PTT (Actin FS) Sodium Potassium Chloride Carbon Dioxide Anion Gap BUN Creatinine Creat Clearance w eGFR POC Glucometer Random Glucose Calcium Phosphorus 6.4 H Magnesium 1.6 L Iron 6 L TIBC 194 L Iron Saturation 3 L Total Bilirubin AST ALT Alkaline Phosphatase Creatine Kinase 1228 H Creatine Kinase Index 0.4 CK-MB (CK-2) 5.7 H Total Protein Albumin Acetaminophen 09/08/18 09/08/18 09/08/18 06:45 06:58 10:20 WBC RBC Hgb Hct MCV MCH MCHC RDW Plt Count MPV Absolute Neuts (auto) Neutrophils % Neutrophils % (Manual) Band Neutrophils % Lymphocytes % Lymphocytes % (Manual) Monocytes % Monocytes % (Manual) Eosinophils % Eosinophils % (Manual) Basophils % Basophils % (Manual) Myelocytes % (Man) Promyelocytes % (Man) Blast Cells % (Manual) Nucleated RBC % Metamyelocytes Hypochromia Platelet Estimate Polychromasia Poikilocytosis Anisocytosis Microcytosis Macrocytosis Target Cells PT with INR 19.20 H INR 1.62 H PTT (Actin FS) Sodium 144 Potassium 3.6 Chloride 112 H Carbon Dioxide 16 L Anion Gap 16 BUN 94 H Creatinine 2.4 H Creat Clearance w eGFR 20.66 POC Glucometer 216 Random Glucose 187 H Calcium 7.7 L Phosphorus Magnesium Iron TIBC Iron Saturation Total Bilirubin 0.5 AST 84 H ALT 140 H Alkaline Phosphatase 52 Creatine Kinase Creatine Kinase Index CK-MB (CK-2) Total Protein 4.2 L Albumin 1.3 L Acetaminophen 6.2 L 09/08/18 09/08/18 09/08/18 10:20 11:42 16:38 WBC RBC Hgb Hct MCV MCH MCHC RDW Plt Count MPV Absolute Neuts (auto) Neutrophils % Neutrophils % (Manual) Band Neutrophils % Lymphocytes % Lymphocytes % (Manual) Monocytes % Monocytes % (Manual) Eosinophils % Eosinophils % (Manual) Basophils % Basophils % (Manual) Myelocytes % (Man) Promyelocytes % (Man) Blast Cells % (Manual) Nucleated RBC % Metamyelocytes Hypochromia Platelet Estimate Polychromasia Poikilocytosis Anisocytosis Microcytosis Macrocytosis Target Cells PT with INR INR PTT (Actin FS) Sodium Potassium Chloride Carbon Dioxide Anion Gap BUN Creatinine Creat Clearance w eGFR POC Glucometer 147 147 Random Glucose Calcium Phosphorus Magnesium Iron TIBC Iron Saturation Total Bilirubin AST ALT Alkaline Phosphatase Creatine Kinase Creatine Kinase Index CK-MB (CK-2) Total Protein Albumin Acetaminophen 4.5 L 09/08/18 09/08/18 09/08/18 18:00 18:00 22:15 WBC RBC Hgb Hct MCV MCH MCHC RDW Plt Count MPV Absolute Neuts (auto) Neutrophils % Neutrophils % (Manual) Band Neutrophils % Lymphocytes % Lymphocytes % (Manual) Monocytes % Monocytes % (Manual) Eosinophils % Eosinophils % (Manual) Basophils % Basophils % (Manual) Myelocytes % (Man) Promyelocytes % (Man) Blast Cells % (Manual) Nucleated RBC % Metamyelocytes Hypochromia Platelet Estimate Polychromasia Poikilocytosis Anisocytosis Microcytosis Macrocytosis Target Cells PT with INR INR PTT (Actin FS) Sodium 142 140 Potassium 3.4 L 3.4 L Chloride 109 H 109 H Carbon Dioxide 17 L 17 L Anion Gap 16 13 BUN 84 H 85 H Creatinine 2.0 H 2.1 H Creat Clearance w eGFR 25.50 24.11 POC Glucometer 181 Random Glucose 144 H 144 H Calcium 8.1 L 8.2 L Phosphorus Magnesium Iron TIBC Iron Saturation Total Bilirubin 0.4 AST 58 H ALT 115 H Alkaline Phosphatase 53 Creatine Kinase 679 H Creatine Kinase Index 0.4 CK-MB (CK-2) 3.0 Total Protein 4.2 L Albumin 1.4 L Acetaminophen 5.3 L 09/09/18 09/09/18 09/09/18 01:30 06:00 06:05 WBC 12.1 H RBC 3.09 L Hgb 7.5 L Hct 24.2 L MCV 78.4 L MCH 24.2 L MCHC 30.9 L RDW 17.1 H Plt Count 276 MPV 7.7 Absolute Neuts (auto) 9.7 H Neutrophils % 80.0 Neutrophils % (Manual) Band Neutrophils % Lymphocytes % 10.3 Lymphocytes % (Manual) Monocytes % 7.9 Monocytes % (Manual) Eosinophils % 1.6 D Eosinophils % (Manual) Basophils % 0.2 D Basophils % (Manual) Myelocytes % (Man) Promyelocytes % (Man) Blast Cells % (Manual) Nucleated RBC % 0 Metamyelocytes Hypochromia Platelet Estimate Polychromasia Poikilocytosis Anisocytosis Microcytosis Macrocytosis Target Cells PT with INR INR PTT (Actin FS) 20.2 L Sodium Potassium Chloride Carbon Dioxide Anion Gap BUN Creatinine Creat Clearance w eGFR POC Glucometer 186 Random Glucose Calcium Phosphorus Magnesium Iron TIBC Iron Saturation Total Bilirubin AST ALT Alkaline Phosphatase Creatine Kinase Creatine Kinase Index CK-MB (CK-2) Total Protein Albumin Acetaminophen EKG 09/08 - sinus tachycardia, widespread T wave inversions ASSESSMENT AND PLAN: 58 yo F with PMHx of Gastric bypass (?2004), recurrent anemia, prior EGD/ colonoscopy in 05/2018 showing gastric ulcers at anastomotic site/Possible ischemic colitis, recent RLE DVT on eliquis, IDDM, HTN, chronic diarrhea, opioid dependence, brought to the ER with lethargy and anorexia. was recently prescribed percocet by per painting technician. She was prescribed 90 pills and there was only 10 remaining after 4 days -Suspected Intentional percocet Overdose (denies SI or suicidal attempt, reports for pain control) -ELLA, multifactorial from dehydration/rhabdomyolysis/acidosis -Anion gap metabolic acidosis -Rhabdomyolysis -Tachycardia -Acute toxic metabolic encephalopathy, multifactorial from above -Acute LUE cephalic vein thrombosis, limited visualization of remaining veins -Transaminitis, resolving -Left sided abdominal pain -Acute on chronic Normocytic anemia -Hyperkalemia -NIDDM -h/o gastric bypass -h/o DVT on eliquis -H/o gastric ulcers/ischemic colitis -HTN -Opioid dependence Plan: h/h noted, check FOBT, heparin drip with close monitoring Known h/o recurrent anemia requiring transfusions. Start PPI. Tylenol levels noted but Lfts/coags continue to improve, mental status better, Trend for now. Off NAC drip. Daily lfts/coags. Renal input noted. IVF per renal, decreased. Renal/bladder US noted. Trend CPK. Continue heparin drip with caution as above. K normalized. Psych consult, 1:1 observation. Detox input noted, not a candidate for percocet, Continue suboxone. CT A/P results reviewed. Clinical exam not consistent with SBO, patient with diarrhea. Serial exams and clinical monitoring. ISS, diabetic diet. hold oral agents DVTPPX heparin drip Dispo pending clinical improvement. Plan discussed with patient in detail, all questions answered.
[2018-09-09 07:35] LABS: ALBUMIN 1.3 g/dl (3.4-5.0); ALK PHOS 53 U/L (45-117); ANION GAP 16 MMOL/L (8-16); BILIRUBIN,TOTAL 0.4 mg/dL (0.2-1); BLOOD UREA NITROGEN 75 mg/dL (7-18); CALCIUM 8.2 mg/dL (8.5-10.1); CHLORIDE 107 mmol/L (98-107); CO2 17 mmol/L (21-32); CREATININE 1.6 mg/dL (0.55-1.3); GLUCOSE,RANDOM 164 mg/dL (74-106); MAGNESIUM 1.8 mg/dL (1.8-2.4); PHOSPHOROUS 4.1 mg/dL (2.5-4.9); POTASSIUM 3.3 mmol/L (3.5-5.1); SGOT/AST 35 U/L (15-37); SGPT/ALT 87 U/L (13-61); SODIUM 140 mmol/L (136-145)
[2018-09-09] MEDS ORDERED: PT OWN MED DRAWER 7, Y5N ONE ×2 (09:53→11:14)
--- NOTE | 2018-09-09 09:57 | EKG ---
Test Reason : Blood Pressure : / mmHG Vent. Rate : 120 BPM Atrial Rate : 120 BPM P-R Int : 118 ms QRS Dur : 080 ms QT Int : 340 ms P-R-T Axes : 023 027 254 degrees QTc Int : 480 ms SINUS TACHYCARDIA LOW VOLTAGE QRS CANNOT RULE OUT ANTERIOR INFARCT (CITED ON OR BEFORE 01-AUG-2018) ABNORMAL ECG WHEN COMPARED WITH ECG OF 07-SEP-2018 13:25, QUESTIONABLE CHANGE IN INITIAL FORCES OF ANTEROSEPTAL LEADS ST NOW DEPRESSED IN INFERIOR LEADS INVERTED T WAVES HAVE REPLACED NONSPECIFIC T WAVE ABNORMALITY IN ANTERIOR LEADS Confirmed by NAGA TARANGO, VERONICA ([id number] on 09/09/2018 9:57:06 AM Referred By: Shae INMAN Confirmed By:VERONICA NIELSON MD
[2018-09-09] MEDS ORDERED: BUPRENORPHINE/NALOXONE 8 MG/2 MG FILM PACKET SL SCH (10:00)
[2018-09-09] MEDS ORDERED: POTASSIUM CHLORIDE TABS 20 MEQ TABLET.ER (FP) PO ONE ×2 (10:16→12:49)
[2018-09-09] MEDS ORDERED: MAGNESIUM SULF 50% (8.12 MEQ/2 ML-1 GM VIAL) IVPB ONE (10:45)
[2018-09-09 11:07] LABS: INR 1.45 (0.83-1.09); PROTHROMBIN TIME (PATIENT) 17.2 SEC (9.7-13.0)
[2018-09-09] MEDS ORDERED: INSULIN (NOVOLOG) ASPART 100 UNITS/ML 10ML VIAL ONE ×2 (11:15→22:37)
[2018-09-09] MEDS: PANTOPRAZOLE SODIUM 40 MG VIAL IVPUSH SCH ×2 (11:25→22:45)
[2018-09-09] MEDS: CALCIUM 500MG/VIT-D 200 UNITS COMBO TABLET (FP) PO SCH ×2 (11:25→22:45)
[2018-09-09] MEDS: BUPRENORPHINE/NALOXONE 8 MG/2 MG FILM PACKET SL SCH (11:46)
[2018-09-09] MEDS: CALCITRIOL 0.25 MCG CAPSULE (FP) PO SCH (11:51)
--- NOTE | 2018-09-09 12:15 | PN ---
Progress Note, Physician History of Present Illness: Pt seen and examined at bedside. She is more awake and alert. She denies shortness of breath. - Current Medication List Current Medications: Active Medications Buprenorphine/Naloxone (Suboxone 8mg/2mg Sl Film -) 1 each SL DAILY [facility] Last Admin: 09/09/18 11:46 Dose: Not Given Calcitriol (Rocaltrol -) 0.5 mcg PO DAILY [facility] Calcium Carbonate/Cholecalciferol (Os-Willy 500+D -) 2 tab PO BID [facility] Last Admin: 09/09/18 11:25 Dose: 2 tab Heparin Sodium (Porcine) (Heparin -) 5,000 unit IVPUSH PRN PRN PRN Reason: Heparin Last Admin: 09/09/18 02:37 Dose: 5,000 unit Heparin Sodium (Porcine) (Heparin -) 1,000 unit IVPUSH PRN PRN PRN Reason: Heparin Sodium Chloride (1/2 Normal Saline) 1,000 mls @ 75 mls/hr IV ASDIR [facility] Last Admin: 09/08/18 18:19 Dose: 75 mls/hr Heparin Sodium/Dextrose (Heparin Infusion -) 25,000 units in 500 mls @ 20 mls/ hr IVPB TITR [facility]; Protocol Last Titration: 09/09/18 02:37 Dose: 1,150 units/hr, 23 mls/hr Insulin Aspart (Novolog Vial Sliding Scale -) 1 vial SQ ACHS [facility]; Protocol Last Admin: 09/09/18 11:51 Dose: 2 units Pantoprazole Sodium (Protonix Iv) 40 mg IVPUSH BID [facility] Last Admin: 09/09/18 11:25 Dose: 40 mg - Objective Vital Signs: Vital Signs Temperature 98.4 F 09/09/18 09:50 Pulse Rate 116 H 09/09/18 09:50 Respiratory Rate 18 09/09/18 09:50 Blood Pressure 133/61 09/09/18 09:50 O2 Sat by Pulse Oximetry (%) 96 09/08/18 23:15 Constitutional: Yes: Calm Eyes: Yes: Conjunctiva Clear HENT: Yes: Atraumatic Neck: Yes: Supple Cardiovascular: Yes: S1, S2 Respiratory: Yes: CTA Bilaterally Genitourinary: Yes: Mcdonald Present Edema: LLE: Trace, RLE: Trace Neurological: Yes: Oriented Psychiatric: Yes: Oriented Labs: CBC, BMP 09/09/18 06:00 09/09/18 06:00 INR, PTT INR 1.45 (0.83-1.09) H 09/09/18 08:45 Problem List - Problems (1) ARF (acute renal failure) Code(s): N17.9 - ACUTE KIDNEY FAILURE, UNSPECIFIED Qualifiers: Acute renal failure type: unspecified Qualified Code(s): N17.9 - Acute kidney failure, unspecified (2) Acetaminophen toxicity Code(s): T39.1X1A - POISONING BY 4-AMINOPHENOL DERIVATIVES, ACCIDENTAL, INIT Qualifiers: Encounter type: initial encounter Injury intent: undetermined intent Qualified Code(s): T39.1X4A - Poisoning by 4-Aminophenol derivatives, undetermined, initial encounter (3) Fever Code(s): R50.9 - FEVER, UNSPECIFIED Qualifiers: Fever type: unspecified Qualified Code(s): R50.9 - Fever, unspecified (4) Hyperkalemia Code(s): E87.5 - HYPERKALEMIA (5) Rhabdomyolysis Code(s): M62.82 - RHABDOMYOLYSIS Qualifiers: Rhabdomyolysis type: non-traumatic Qualified Code(s): M62.82 - Rhabdomyolysis Assessment/Plan Current Medications Generic Name Dose Route Start Last Admin Trade Name Freq PRN Reason Stop Dose Admin Buprenorphine/Naloxone 1 each 09/09/18 10:00 09/09/18 11:46 Suboxone 8mg/2mg Sl Film - SL Not Given DAILY [facility] Calcitriol 0.5 mcg 09/09/18 10:00 Rocaltrol - PO DAILY [facility] Calcium Carbonate/Cholecalciferol 2 tab 09/09/18 10:00 09/09/18 11:25 Os-Willy 500+D - PO 2 tab BID [facility] Administration Heparin Sodium (Porcine) 5,000 unit 09/08/18 16:58 09/09/18 02:37 Heparin - IVPUSH 5,000 unit PRN PRN Administration Heparin Heparin Sodium (Porcine) 1,000 unit 09/08/18 16:58 Heparin - IVPUSH PRN PRN Heparin Sodium Chloride 1,000 mls @ 75 mls/hr 09/08/18 16:27 09/08/18 18:19 1/2 Normal Saline IV 75 mls/hr ASDIR [facility] Administration Heparin Sodium/Dextrose 25,000 units in 500 mls @ 20 mls/hr 09/08/18 23:48 02:37 Heparin Infusion - IVPB 1,150 units/hr TITR [facility] 23 mls/hr Titration Protocol 1,000 UNITS/HR Insulin Aspart 1 vial 09/09/18 07:00 09/09/18 11:51 Novolog Vial Sliding Scale - SQ 2 units ACHS [facility] Administration Protocol Pantoprazole Sodium 40 mg 09/09/18 10:30 09/09/18 11:25 Protonix Iv IVPUSH 40 mg BID [facility] Administration Laboratory Tests 09/08/18 06:45 c-ANCA Pending Proteinase 3 (PR3) Pending Atypical p-ANCA Pending Myeloperoxidase Ab Pending Double Strand DNA Ab Pending Laboratory Tests 09/09/18 06:00 Creatine Kinase 352 H Impression 1. ELLA 2. hyperkalemia 3. drug overdose 4. tylenol toxicity 5. rhabdo 6. opioid dependence 7. microscopic hematuria 8. anemia 9. HTN 10. DM 11. hypocalcemia Plan - can decrease fluids further - d/c mcdonald - replace potassium - cpk improving - likely severe prerenal disease causing ATN - renal workup in progress
[2018-09-09] MEDS: SODIUM CHLORIDE 0.45% 1,000 ML IV SCH (12:41)
[2018-09-09] MEDS ORDERED: MAGNESIUM OXIDE 400 MG TABLET (FP) PO ONE (12:54)
[2018-09-09 13:52] LABS: ANISOCYTOSIS 1+; MACROCYTOSIS 0; PLATELET ESTIMATE NORMAL; TARGET CELLS 1+
--- NOTE | 2018-09-09 15:17 | PN ---
Physical Exam: SUBJECTIVE: Patient seen and examined at bedside this morning. Patient is more alert. No acute events overnight. OBJECTIVE: Vital Signs Period Temp Pulse Resp BP Sys/Funes Pulse Ox Last 24 Hr 98.1 F-98.8 F 115-125 18-20 132-141/57-73 96-96 ENERAL: The patient is awake, alert, and orientedx2, in no acute distress. HEAD: Normal with no signs of trauma. EYES: PERRLA, EOMI, sclera anicteric, conjunctiva clear. NECK: Trachea midline, full range of motion, supple. LUNGS: Breath sounds equal, clear to auscultation bilaterally. HEART: Regular rate and rhythm, S1, S2 without murmur, rub or gallop. ABDOMEN: soft, +RUQ/RLQ tenderness, nondistended, NABS, no guarding. EXTREMITIES: 2+ pulses, warm, well-perfused, no edema. SKIN: Warm, dry, normal turgor, no rashes or lesions noted Laboratory Results - last 24 hr 09/06/18 09/08/18 09/08/18 22:28 06:45 16:38 WBC RBC Hgb Hct MCV MCH MCHC RDW Plt Count MPV Absolute Neuts (auto) Neutrophils % Neutrophils % (Manual) Band Neutrophils % Lymphocytes % Lymphocytes % (Manual) Monocytes % Monocytes % (Manual) Eosinophils % Eosinophils % (Manual) Basophils % Basophils % (Manual) Myelocytes % (Man) Promyelocytes % (Man) Blast Cells % (Manual) Nucleated RBC % Metamyelocytes Hypochromia Platelet Estimate Polychromasia Poikilocytosis Anisocytosis Microcytosis Macrocytosis Target Cells PT with INR INR PTT (Actin FS) Sodium Potassium Chloride Carbon Dioxide Anion Gap BUN Creatinine Creat Clearance w eGFR POC Glucometer 147 Random Glucose Calcium Phosphorus Magnesium Total Bilirubin AST ALT Alkaline Phosphatase Creatine Kinase Creatine Kinase Index CK-MB (CK-2) Total Protein Albumin Specimen Type CSF Lyme Disease DNA Cancelled CSF Herpes II IgG Ab Cancelled CSF West Nile IgG Ab Cancelled CSF West Nile IgM Ab Cancelled Acetaminophen Double Strand DNA Ab <1 S. pneumoniae Antigen Negative 09/08/18 09/08/18 09/08/18 18:00 18:00 22:15 WBC RBC Hgb Hct MCV MCH MCHC RDW Plt Count MPV Absolute Neuts (auto) Neutrophils % Neutrophils % (Manual) Band Neutrophils % Lymphocytes % Lymphocytes % (Manual) Monocytes % Monocytes % (Manual) Eosinophils % Eosinophils % (Manual) Basophils % Basophils % (Manual) Myelocytes % (Man) Promyelocytes % (Man) Blast Cells % (Manual) Nucleated RBC % Metamyelocytes Hypochromia Platelet Estimate Polychromasia Poikilocytosis Anisocytosis Microcytosis Macrocytosis Target Cells PT with INR INR PTT (Actin FS) Sodium 142 140 Potassium 3.4 L 3.4 L Chloride 109 H 109 H Carbon Dioxide 17 L 17 L Anion Gap 16 13 BUN 84 H 85 H Creatinine 2.0 H 2.1 H Creat Clearance w eGFR 25.50 24.11 POC Glucometer 181 Random Glucose 144 H 144 H Calcium 8.1 L 8.2 L Phosphorus Magnesium Total Bilirubin 0.4 AST 58 H ALT 115 H Alkaline Phosphatase 53 Creatine Kinase 679 H Creatine Kinase Index 0.4 CK-MB (CK-2) 3.0 Total Protein 4.2 L Albumin 1.4 L Specimen Type CSF Lyme Disease DNA CSF Herpes II IgG Ab CSF West Nile IgG Ab CSF West Nile IgM Ab Acetaminophen 5.3 L Double Strand DNA Ab S. pneumoniae Antigen 09/09/18 09/09/18 09/09/18 01:30 06:00 06:00 WBC 12.1 H RBC 3.09 L Hgb 7.5 L Hct 24.2 L MCV 78.4 L MCH 24.2 L MCHC 30.9 L RDW 17.1 H Plt Count 276 MPV 7.7 Absolute Neuts (auto) 9.7 H Neutrophils % 80.0 Neutrophils % (Manual) 64.0 Band Neutrophils % 13.0 Lymphocytes % 10.3 Lymphocytes % (Manual) 15.0 D Monocytes % 7.9 Monocytes % (Manual) 5 Eosinophils % 1.6 D Eosinophils % (Manual) 2.0 D Basophils % 0.2 D Basophils % (Manual) 0.0 Myelocytes % (Man) 1 D Promyelocytes % (Man) 0 Blast Cells % (Manual) 0 Nucleated RBC % 0 Metamyelocytes 0 Hypochromia 1+ Platelet Estimate Normal Polychromasia 1+ Poikilocytosis 0 Anisocytosis 1+ Microcytosis 1+ Macrocytosis 0 Target Cells 1+ PT with INR INR PTT (Actin FS) 20.2 L Sodium 140 Potassium 3.3 L Chloride 107 Carbon Dioxide 17 L Anion Gap 16 BUN 75 H Creatinine 1.6 H Creat Clearance w eGFR 32.99 POC Glucometer Random Glucose 164 H Calcium 8.2 L Phosphorus 4.1 Magnesium 1.8 Total Bilirubin 0.4 AST 35 ALT 87 H Alkaline Phosphatase 53 Creatine Kinase 352 H Creatine Kinase Index 0.5 CK-MB (CK-2) 1.9 Total Protein 4.0 L Albumin 1.3 L Specimen Type CSF Lyme Disease DNA CSF Herpes II IgG Ab CSF West Nile IgG Ab CSF West [place] IgM Ab Acetaminophen 8.0 L Double Strand DNA Ab S. pneumoniae Antigen 09/09/18 09/09/18 09/09/18 06:05 08:45 08:45 WBC RBC Hgb Hct MCV MCH MCHC RDW Plt Count MPV Absolute Neuts (auto) Neutrophils % Neutrophils % (Manual) Band Neutrophils % Lymphocytes % Lymphocytes % (Manual) Monocytes % Monocytes % (Manual) Eosinophils % Eosinophils % (Manual) Basophils % Basophils % (Manual) Myelocytes % (Man) Promyelocytes % (Man) Blast Cells % (Manual) Nucleated RBC % Metamyelocytes Hypochromia Platelet Estimate Polychromasia Poikilocytosis Anisocytosis Microcytosis Macrocytosis Target Cells PT with INR 17.20 H INR 1.45 H PTT (Actin FS) 45.9 H Sodium Potassium Chloride Carbon Dioxide Anion Gap BUN Creatinine Creat Clearance w eGFR POC Glucometer 186 Random Glucose Calcium Phosphorus Magnesium Total Bilirubin AST ALT Alkaline Phosphatase Creatine Kinase Creatine Kinase Index CK-MB (CK-2) Total Protein Albumin Specimen Type CSF Lyme Disease DNA CSF Herpes II IgG Ab CSF West Nile IgG Ab CSF West [place] IgM Ab Acetaminophen Double Strand DNA Ab S. pneumoniae Antigen 09/09/18 11:40 WBC RBC Hgb Hct MCV MCH MCHC RDW Plt Count MPV Absolute Neuts (auto) Neutrophils % Neutrophils % (Manual) Band Neutrophils % Lymphocytes % Lymphocytes % (Manual) Monocytes % Monocytes % (Manual) Eosinophils % Eosinophils % (Manual) Basophils % Basophils % (Manual) Myelocytes % (Man) Promyelocytes % (Man) Blast Cells % (Manual) Nucleated RBC % Metamyelocytes Hypochromia Platelet Estimate Polychromasia Poikilocytosis Anisocytosis Microcytosis Macrocytosis Target Cells PT with INR INR PTT (Actin FS) Sodium Potassium Chloride Carbon Dioxide Anion Gap BUN Creatinine Creat Clearance w eGFR POC Glucometer 183 Random Glucose Calcium Phosphorus Magnesium Total Bilirubin AST ALT Alkaline Phosphatase Creatine Kinase Creatine Kinase Index CK-MB (CK-2) Total Protein Albumin Specimen Type CSF Lyme Disease DNA CSF Herpes II IgG Ab CSF West Nile IgG Ab CSF West [place] IgM Ab Acetaminophen Double Strand DNA Ab S. pneumoniae Antigen Active Medications Generic Name Dose Route Start Last Admin Trade Name Freq PRN Reason Stop Dose Admin Buprenorphine/Naloxone 1 each 09/09/18 10:00 09/09/18 11:46 Suboxone 8mg/2mg Sl Film - SL Not Given DAILY [facility] Calcitriol 0.5 mcg 09/09/18 10:00 Rocaltrol - PO DAILY [facility] Calcium Carbonate/Cholecalciferol 2 tab 09/09/18 10:00 09/09/18 11:25 Os-Willy 500+D - PO 2 tab BID [facility] Administration Heparin Sodium (Porcine) 5,000 unit 09/08/18 16:58 09/09/18 02:37 Heparin - IVPUSH 5,000 unit PRN PRN Administration Heparin Heparin Sodium (Porcine) 1,000 unit 09/08/18 16:58 09/09/18 09:24 Heparin - IVPUSH 1,000 unit PRN PRN Administration Heparin Heparin Sodium/Dextrose 25,000 units in 500 mls @ 20 mls/hr 09/08/18 23:48 09:23 Heparin Infusion - IVPB 1,250 units/hr TITR [facility] 25 mls/hr Titration Protocol 1,000 UNITS/HR Sodium Chloride 1,000 mls @ 50 mls/hr 09/09/18 12:15 09/09/18 12:41 1/2 Normal Saline IV 50 mls/hr ASDIR [facility] Administration Insulin Aspart 1 vial 09/09/18 07:00 09/09/18 11:51 Novolog Vial Sliding Scale - SQ 2 units ACHS [facility] Administration Protocol Pantoprazole Sodium 40 mg 09/09/18 10:30 09/09/18 11:25 Protonix Iv IVPUSH 40 mg BID [facility] Administration ASSESSMENT/PLAN: Patient is a 58 year old female with a significant past medical history of opiate abuse, HTN, IDDM, s/p gastric bypass, recurrent anemia, gastric ulcer, possible ischemic colitis, chronic diarrhea, DVT on Eliquis who was BIBA due to altered mental status and poor PO intake. #Altered mental status: likely 2/2 Uremia 2/2 Acetaminophen toxicity -Patient reportedly took 80 tablets of percocet in the last 5 days. It is unknown if patient took it at the same time or was distributed over 5 days or last intake. -Acetaminophen level 9.2 on admission, level trended down to 4.5, level today is 8. -Will continue to monitor Acetaminophen level -Urine toxicology: +opiates -Poison control contacted, NAC can be discontinued as LFTs are improving -Continue 1/2 NS @50ml/hr. #Transaminitis 2/2 Acetominophen toxicity -AST/ALT on admission: 421/266; trending down 35/87 -Will monitor #ELLA/Rhabdomyolysis -BUN/CR 137/4.8 on admission, trending down 75/1.6 -CK 8182, trending down, will monitor CK level BID -IVF given -Nephrology (Dr. Calderón) consulted. Recommendations appreciated: - cpk is improving - decrease rate of fluids to 50 - d/c mcdonald - renal function is improving - likely severe prerenal disease causing ATN - renal workup in progress #Opioid abuse -patient refused to take Suboxone today. -Loose bowel movements x7. May be due to opioid withdrawal -Will order stool cx, c.diff, and wbc. -Dr. Rich consulted. REcommendations appreciated: -Pt is probably not a candidate to resume percocets. -Suboxone- will start 2mg today and increase to 8mg tomorrow and may increase to BID if needed and tolerated. -Please call [facility]- [phone], for an initial appt for Suboxone treatment- pt is agreeable for this Rx. #Hx of DVT -On eliquis, put on hold due to renal function -On Heparin drip -Will transition back to Eliquis when renal function normalizes #?Suicide risk -1:1 observation -Psychiatrist (Dr. Watts) consulted. Case referred to [facility]. -Recommendations appreciated: -No agitation, denies suicidal or homicidal ideation. No psychosis, denies depression or anxiety. #Acute on Chronic Normocytic anemia -Hgb 7.5 today. -FOBT ordered. -will monitor H/H #Hyperkalemia: resolved -6.3 on admission -Received Calcium Gluconate, Insulin +D5W, Albuterol, and Sodium Bicarb -repeat K 4.4 -will continue to monitor #Hypocalcemia: improving -Ca 5.5 on admission,Ca today 7.7 -Continue PO Calcium and Vit D -Will monitor #DM -Insulin Sliding Scale -BGM ACHS #FEN -1/2NS@50cc/hr -hypoK, hypoMg, replete as necessary -routine cmp monitoring -diabetic diet #Prophylaxis -patient was on eliquis. Held due to ARF -Heparin drip #Disposition -transfer to tele Visit type - Emergency Visit Emergency Visit: Yes ED Registration Date: 09/06/18 Care time: The patient presented to the Emergency Department on the above date and was hospitalized for further evaluation of their emergent condition. - New Patient This patient is new to me today: Yes Date on this admission: 09/09/18 - Critical Care Critical Care patient: No
[2018-09-09 21:33] LABS: HEMATOCRIT 25.8 % (32.4-45.2); MCH 24.6 pg (25.7-33.7); MCHC 30.9 g/dl (32.0-36.0); MEAN CELL VOLUME 79.7 fl (80-96); MEAN PLT VOLUME 7.8 fl (7.5-11.1); PLATELET COUNT 296 K/MM3 (134-434); RBC 3.24 M/mm3 (3.60-5.2); RDW 17.6 % (11.6-15.6); WHITE BLOOD COUNT 12.8 K/mm3 (4.0-10.0)
[2018-09-09 21:54] LABS: ANION GAP 6 MMOL/L (8-16); BLOOD UREA NITROGEN 62 mg/dL (7-18); CALCIUM 7.7 mg/dL (8.5-10.1); CHLORIDE 108 mmol/L (98-107); CO2 18 mmol/L (21-32); CREATININE 1.3 mg/dL (0.55-1.3); GLUCOSE,RANDOM 183 mg/dL (74-106); POTASSIUM 3.7 mmol/L (3.5-5.1); SODIUM 133 mmol/L (136-145)
[2018-09-10] MEDS: SODIUM CHLORIDE 0.45% 1,000 ML IV SCH ×2 (06:01→12:23)
[2018-09-10] MEDS: HEPARIN INFUSION - 25,000 UNITS/500 ML INFUS.BAG IVPB SCH (06:02)
[2018-09-10] MEDS: INSULIN SLIDING SCALE (NOVOLOG) 1 VIAL SQ SCH ×4 (06:03→23:44)
[2018-09-10 07:16] LABS: BASO % 0.1 % (0-2.0); EOS % 0.9 % (0-4.5); HEMATOCRIT 22.1 % (32.4-45.2); LYMPH % 9.3 % (8-40); MCH 24.7 pg (25.7-33.7); MCHC 31.2 g/dl (32.0-36.0); MEAN CELL VOLUME 79.1 fl (80-96); MEAN PLT VOLUME 7.4 fl (7.5-11.1); MONO % 7.3 % (3.8-10.2); NEUT % 82.4 % (42.8-82.8); PLATELET COUNT 231 K/MM3 (134-434); WHITE BLOOD COUNT 13.2 K/mm3 (4.0-10.0)
--- NOTE | 2018-09-10 07:27 | PN ---
Teaching Attending Note Name of Resident: Odette Garcia ATTENDING PHYSICIAN STATEMENT I saw and evaluated the patient. I reviewed the resident's note and discussed the case with the resident. I agree with the resident's findings and plan as documented with exceptions below. SUBJECTIVE: Patient seen and examined. overall feels better, no new complaints. Denies any abdominal pain or dark bloody stools. Watery stools yesterday OBJECTIVE: Vital Signs Period Temp Pulse Resp BP Sys/Funes Pulse Ox Last 24 Hr 98.4 F-98.8 F 108-116 18-20 119-135/51-64 96-96 Intake & Output 09/07/18 09/08/18 09/09/18 09/10/18 23:59 23:59 23:59 23:59 Intake Total 3512 620 2128.5 1121 Output Total 2500 1900 1300 2 Balance 1012 -1280 828.5 1119 Weight 160 lb 0.008 oz 160 lb General: sitting in bed, awake, conversant, no acute distress Chest: poor effort, no rales or wheezing Abdomen: soft, obese, NT, no voluntary or involuntary guarding or rigidity Extremities: left hand edema improved Active Medications Buprenorphine/Naloxone (Suboxone 8mg/2mg Sl Film -) 1 each SL DAILY [facility] Last Admin: 09/09/18 11:46 Dose: Not Given Calcitriol (Rocaltrol -) 0.5 mcg PO DAILY [facility] Calcium Carbonate/Cholecalciferol (Os-Willy 500+D -) 2 tab PO BID YAMILKA Last Admin: 09/09/18 22:45 Dose: 2 tab Heparin Sodium (Porcine) (Heparin -) 5,000 unit IVPUSH PRN PRN PRN Reason: Heparin Last Admin: 09/09/18 22:40 Dose: 5,000 unit Heparin Sodium (Porcine) (Heparin -) 1,000 unit IVPUSH PRN PRN PRN Reason: Heparin Last Admin: 09/09/18 09:24 Dose: 1,000 unit Heparin Sodium/Dextrose (Heparin Infusion -) 25,000 units in 500 mls @ 20 mls/ hr IVPB TITR YAMILKA; Protocol Last Admin: 09/10/18 06:02 Dose: Not Given Sodium Chloride (1/2 Normal Saline) 1,000 mls @ 50 mls/hr IV ASDIR YAMILKA Last Admin: 09/10/18 06:01 Dose: 50 mls/hr Insulin Aspart (Novolog Vial Sliding Scale -) 1 vial SQ ACHS YAMILKA; Protocol Last Admin: 09/10/18 06:03 Dose: 4 units Pantoprazole Sodium (Protonix Iv) 40 mg IVPUSH BID YAMILKA Last Admin: 09/09/18 22:45 Dose: 40 mg Microbiology 09/06/18 17:22 Blood - Peripheral Venous Blood Culture - Preliminary NO GROWTH OBTAINED AFTER 72 HOURS, INCUBATION TO CONTINUE FOR 2 DAYS. 09/06/18 17:22 Blood - Peripheral Venous Blood Culture - Preliminary NO GROWTH OBTAINED AFTER 72 HOURS, INCUBATION TO CONTINUE FOR 2 DAYS. 09/06/18 23:57 Cerebral Spinal Fluid - Lumbar Puncture Gram Stain - Final 09/06/18 23:57 Cerebral Spinal Fluid - Lumbar Puncture CSF Culture - Final 09/06/18 16:04 Urine - Urine La Urine Culture - Final NO GROWTH OBTAINED 09/06/18 22:28 Cerebral Spinal Fluid - Lumbar Puncture Streptococcus pneumoniae Antigen (M - Final Laboratory Results - last 24 hr 09/06/18 09/08/18 09/09/18 22:28 06:45 06:00 WBC RBC Hgb Hct MCV MCH MCHC RDW Plt Count MPV Absolute Neuts (auto) Neutrophils % Neutrophils % (Manual) 64.0 Band Neutrophils % 13.0 Lymphocytes % Lymphocytes % (Manual) 15.0 D Monocytes % Monocytes % (Manual) 5 Eosinophils % Eosinophils % (Manual) 2.0 D Basophils % Basophils % (Manual) 0.0 Myelocytes % (Man) 1 D Promyelocytes % (Man) 0 Blast Cells % (Manual) 0 Nucleated RBC % Metamyelocytes 0 Hypochromia 1+ Platelet Estimate Normal Polychromasia 1+ Poikilocytosis 0 Anisocytosis 1+ Microcytosis 1+ Macrocytosis 0 Target Cells 1+ PT with INR INR PTT (Actin FS) Sodium Potassium Chloride Carbon Dioxide Anion Gap BUN Creatinine Creat Clearance w eGFR POC Glucometer Random Glucose Calcium Phosphorus Magnesium Total Bilirubin AST ALT Alkaline Phosphatase Creatine Kinase Creatine Kinase Index CK-MB (CK-2) Total Protein Albumin Specimen Type CSF VDRL Non reactive CSF Lyme Disease DNA Cancelled CSF Herpes II IgG Ab Cancelled CSF West Nile IgG Ab Cancelled CSF West Nile IgM Ab Cancelled Stool Occult Blood Acetaminophen FRANSISCA Screen Negative Double Strand DNA Ab <1 S. pneumoniae Antigen Negative Blood Type Antibody Screen Antibody Identification Antigen Identification Crossmatch 09/09/18 09/09/18 09/09/18 17:19 18:30 20:45 WBC RBC Hgb Hct MCV MCH MCHC RDW Plt Count MPV Absolute Neuts (auto) Neutrophils % Neutrophils % (Manual) Band Neutrophils % Lymphocytes % Lymphocytes % (Manual) Monocytes % Monocytes % (Manual) Eosinophils % Eosinophils % (Manual) Basophils % Basophils % (Manual) Myelocytes % (Man) Promyelocytes % (Man) Blast Cells % (Manual) Nucleated RBC % Metamyelocytes Hypochromia Platelet Estimate Polychromasia Poikilocytosis Anisocytosis Microcytosis Macrocytosis Target Cells PT with INR INR PTT (Actin FS) Sodium 133 L Potassium 3.7 Chloride 108 H Carbon Dioxide 18 L Anion Gap 6 L BUN 62 H Creatinine 1.3 Creat Clearance w eGFR 41.92 POC Glucometer 224 Random Glucose 183 H Calcium 7.7 L Phosphorus Magnesium Total Bilirubin AST ALT Alkaline Phosphatase Creatine Kinase 431 H Creatine Kinase Index 0.5 CK-MB (CK-2) 2.2 Total Protein Albumin Specimen Type CSF VDRL CSF Lyme Disease DNA CSF Herpes II IgG Ab CSF West Nile IgG Ab CSF West Nile IgM Ab Stool Occult Blood Positive Acetaminophen FRANSISCA Screen Double Strand DNA Ab S. pneumoniae Antigen Blood Type Antibody Screen Antibody Identification Antigen Identification Crossmatch 09/09/18 09/09/18 09/09/18 20:45 20:45 20:45 WBC 12.8 H RBC 3.24 L Hgb 8.0 L Hct 25.8 L MCV 79.7 L MCH 24.6 L MCHC 30.9 L RDW 17.6 H Plt Count 296 MPV 7.8 Absolute Neuts (auto) Neutrophils % Neutrophils % (Manual) Band Neutrophils % Lymphocytes % Lymphocytes % (Manual) Monocytes % Monocytes % (Manual) Eosinophils % Eosinophils % (Manual) Basophils % Basophils % (Manual) Myelocytes % (Man) Promyelocytes % (Man) Blast Cells % (Manual) Nucleated RBC % Metamyelocytes Hypochromia Platelet Estimate Polychromasia Poikilocytosis Anisocytosis Microcytosis Macrocytosis Target Cells PT with INR INR PTT (Actin FS) 27.7 Sodium Potassium Chloride Carbon Dioxide Anion Gap BUN Creatinine Creat Clearance w eGFR POC Glucometer Random Glucose Calcium Phosphorus Magnesium Total Bilirubin AST ALT Alkaline Phosphatase Creatine Kinase Creatine Kinase Index CK-MB (CK-2) Total Protein Albumin Specimen Type CSF VDRL CSF Lyme Disease DNA CSF Herpes II IgG Ab CSF West Nile IgG Ab CSF West Nile IgM Ab Stool Occult Blood Acetaminophen 5.3 L FRANSISCA Screen Double Strand DNA Ab S. pneumoniae Antigen Blood Type Antibody Screen Antibody Identification Antigen Identification Crossmatch 09/09/18 09/10/18 09/10/18 21:32 05:37 06:00 WBC RBC Hgb Hct MCV MCH MCHC RDW Plt Count MPV Absolute Neuts (auto) Neutrophils % Neutrophils % (Manual) Band Neutrophils % Lymphocytes % Lymphocytes % (Manual) Monocytes % Monocytes % (Manual) Eosinophils % Eosinophils % (Manual) Basophils % Basophils % (Manual) Myelocytes % (Man) Promyelocytes % (Man) Blast Cells % (Manual) Nucleated RBC % Metamyelocytes Hypochromia Platelet Estimate Polychromasia Poikilocytosis Anisocytosis Microcytosis Macrocytosis Target Cells PT with INR INR PTT (Actin FS) Sodium 133 L Potassium 3.3 L Chloride 106 Carbon Dioxide 13 L Anion Gap 14 BUN 48 H Creatinine 1.0 Creat Clearance w eGFR 56.75 POC Glucometer 230 216 Random Glucose 300 H Calcium 6.8 L* Phosphorus 3.7 Magnesium 1.6 L Total Bilirubin 0.3 AST 23 ALT 50 Alkaline Phosphatase 53 Creatine Kinase 153 Creatine Kinase Index 0.9 CK-MB (CK-2) 1.4 Total Protein 3.5 L Albumin 1.2 L Specimen Type CSF VDRL CSF Lyme Disease DNA CSF Herpes II IgG Ab CSF West Nile IgG Ab CSF West Nile IgM Ab Stool Occult Blood Acetaminophen FRANSISCA Screen Double Strand DNA Ab S. pneumoniae Antigen Blood Type Antibody Screen Antibody Identification Antigen Identification Crossmatch 09/10/18 09/10/18 09/10/18 06:00 06:00 08:20 WBC 13.2 H RBC 2.80 L Hgb 6.9 L* Hct 22.1 L MCV 79.1 L MCH 24.7 L MCHC 31.2 L RDW 17.0 H Plt Count 231 D MPV 7.4 L Absolute Neuts (auto) 10.9 H Neutrophils % 82.4 Neutrophils % (Manual) 73.3 Band Neutrophils % 4.9 Lymphocytes % 9.3 Lymphocytes % (Manual) 15.8 Monocytes % 7.3 Monocytes % (Manual) 3 L Eosinophils % 0.9 Eosinophils % (Manual) 1.0 Basophils % 0.1 Basophils % (Manual) 0.0 Myelocytes % (Man) 1 Promyelocytes % (Man) 0 Blast Cells % (Manual) 0 Nucleated RBC % 0 Metamyelocytes 1 D Hypochromia 0 Platelet Estimate Normal Polychromasia 0 Poikilocytosis 2+ Anisocytosis 2+ Microcytosis 2+ Macrocytosis 0 Target Cells PT with INR INR PTT (Actin FS) Cancelled Sodium Potassium Chloride Carbon Dioxide Anion Gap BUN Creatinine Creat Clearance w eGFR POC Glucometer Random Glucose Calcium Phosphorus Magnesium Total Bilirubin AST ALT Alkaline Phosphatase Creatine Kinase Creatine Kinase Index CK-MB (CK-2) Total Protein Albumin Specimen Type CSF VDRL CSF Lyme Disease DNA CSF Herpes II IgG Ab CSF West Nile IgG Ab CSF West Nile IgM Ab Stool Occult Blood Acetaminophen FRANSISCA Screen Double Strand DNA Ab S. pneumoniae Antigen Blood Type O POSITIVE Antibody Screen Positive H Antibody Identification Anti-K Antigen Identification No Result Required. Crossmatch See Detail 09/10/18 09/10/18 09/10/18 09:00 09:00 12:04 WBC 15.3 H RBC 3.09 L Hgb 7.4 L Hct 24.4 L MCV 79.0 L MCH 24.0 L MCHC 30.4 L RDW 17.1 H Plt Count 256 MPV 7.3 L Absolute Neuts (auto) Neutrophils % Neutrophils % (Manual) Band Neutrophils % Lymphocytes % Lymphocytes % (Manual) Monocytes % Monocytes % (Manual) Eosinophils % Eosinophils % (Manual) Basophils % Basophils % (Manual) Myelocytes % (Man) Promyelocytes % (Man) Blast Cells % (Manual) Nucleated RBC % Metamyelocytes Hypochromia Platelet Estimate Polychromasia Poikilocytosis Anisocytosis Microcytosis Macrocytosis Target Cells PT with INR 16.60 H INR 1.40 H PTT (Actin FS) 24.8 L Sodium Potassium Chloride Carbon Dioxide Anion Gap BUN Creatinine Creat Clearance w eGFR POC Glucometer 197 Random Glucose Calcium Phosphorus Magnesium Total Bilirubin AST ALT Alkaline Phosphatase Creatine Kinase Creatine Kinase Index CK-MB (CK-2) Total Protein Albumin Specimen Type CSF VDRL CSF Lyme Disease DNA CSF Herpes II IgG Ab CSF West Nile IgG Ab CSF West Nile IgM Ab Stool Occult Blood Acetaminophen FRANSISCA Screen Double Strand DNA Ab S. pneumoniae Antigen Blood Type Antibody Screen Antibody Identification Antigen Identification Crossmatch ASSESSMENT AND PLAN: 58 yo F with PMHx of Gastric bypass (?2004), recurrent anemia, prior EGD/ colonoscopy in 05/2018 showing gastric ulcers at anastomotic site/Possible ischemic colitis, recent RLE DVT on eliquis, IDDM, HTN, chronic diarrhea, opioid dependence, brought to the ER with lethargy and anorexia. was recently prescribed percocet by per painter apprentice. She was prescribed 90 pills and there was only 10 remaining after 4 days -Suspected Intentional percocet Overdose (denies SI or suicidal attempt, reports for pain control) -ELLA, multifactorial from dehydration/rhabdomyolysis/acidosis -Anion gap metabolic acidosis -Rhabdomyolysis -Tachycardia -Acute toxic metabolic encephalopathy, multifactorial from above -Acute LUE cephalic vein thrombosis, limited visualization of remaining veins -Transaminitis, resolving -Left sided abdominal pain, chronic, inconsistent exam -Diarrhea, ?opioid withdrawal, r/o C difficile but low suspicion -Acute on chronic Normocytic anemia -Hyperkalemia -NIDDM -h/o gastric bypass -h/o DVT on eliquis -H/o gastric ulcers/ischemic colitis -HTN -Opioid dependence Plan: h/h stable. FOBT pos. Extensive known h/o recurrent anemia requiring transfusions, also with EGD in 2017 with ulceration at anastomotic site, Colonscopy in 08/2018 with possible ischemic colitis. Transfuse 1 unit PRBC. GI consult. Monitor h/h closely while on heparin drip. PPI IV BID. No gross evidence of bleed or hemodynamic instability. Heparin drip, transition to eliquis once GIB and anemia concerns resolve. Tylenol level/LFts/Coags improved, mental status better, Trend for now. Off NAC drip. Daily lfts/coags. Renal input noted. IVF per renal, decreased. Renal/bladder US noted. CPK improved. K normalized. Psych input noted. Plan for inpatient psych once medial issues resolve. Detox input noted, not a candidate for percocet, Continue suboxone. CT A/P results reviewed. Clinical exam not consistent with SBO, patient with diarrhea. Serial exams and clinical monitoring. stool studies. ISS, diabetic diet. hold oral agents DVTPPX heparin drip Dispo pending clinical improvement. Plan discussed with patient in detail, all questions answered.
[2018-09-10 07:28] LABS: HEMOGLOBIN 6.9 GM/dL (10.7-15.3)
--- NOTE | 2018-09-10 07:43 | PN ---
Mental Health Exam - Mental Status Exam Alert and Oriented to: Place, Person Cognitive Function: Grossly Intact Patient Appearance: Well Groomed Mood: Anxious, Apprehensive Affect: Flat, Constricted Patient Behavior: Dependent, Passive, Guarded, Cooperative Speech Pattern: Clear Voice Loudness: Mildly Soft/Quiet Thought Process: Intact Thought Disorder: Not Present Hallucinations: None Suicidal Ideation: Current, Past (took overdose of 80 perocet) Homicidal Ideation: None Insight/Judgement: Impaired (client has multiple re admit to [facility] for falls) Sleep: Poorly (Stays up watchingh tv, ) Appetite: Fair Muscle strength/Tone: Mild Hypotonicity Gait/Station: Deferred Additional Comments: client on one to one for safety risk.
--- NOTE | 2018-09-10 07:56 | PN ---
Progress Note (short form) - Note Progress Note: PATIENT IS 58 YO FEMALE WITH NO PAST PSYCH HISTORY TO TOOK MULTIPLE EXTRA OXYCODONE TABS THAT SHE IS PRESCRIBED FOR SHOLDER PAIN? Client has a history of being followed at [facility] out patient in [place]. Stopped attending after her therapist left. REPORT BY CHET hooker THAT SHE IS PASSIVE ON UNIT, SAD AFFECT , ONLY TALKS WHEN SPOKEN TO, NOW ON 1;1, HAS NOT WALKED YET. cLIENT IS selective HISTORIAN, BUT has a PSYCHIATRIC HISTORY, NOW ON SUBOXONE DURING OPIATE WITHRAWL.Was on klonopin in past. cLIENT IS ALERT BUT DISORIENTATED BY 2, DOES NOT KNOW DATE, HOLIDAY OR HOSPITAL. Cognitively is clear today. nO AGITATION, DENIES SUICIDAL OR HOMICIDAL IDEATION. NO PSYCHOSIS,endorsed DEPRESSION, 10/10 ANXIETY . will recommend find a bed in psychiatry. has [facility] AT [phone] MAJOR DEPRESSION WITH SUICIDAL IDEATION. CLIENT PREFERENCE IS ADMIT [facility]. OFFERED SSRI AT PRESENT, BUT REFUSED. Problem List - Problems (1) Memory loss or impairment Code(s): R41.3 - OTHER AMNESIA (2) Depression, major, severe recurrence Code(s): F33.2 - MAJOR DEPRESSV DISORDER, RECURRENT SEVERE W/O PSYCH FEATURES
[2018-09-10 09:36] LABS: HEMATOCRIT 24.4 % (32.4-45.2); HEMOGLOBIN 7.4 GM/dL (10.7-15.3); MCHC 30.4 g/dl (32.0-36.0); MEAN PLT VOLUME 7.3 fl (7.5-11.1); PLATELET COUNT 256 K/MM3 (134-434); RBC 3.09 M/mm3 (3.60-5.2); RDW 17.1 % (11.6-15.6); WHITE BLOOD COUNT 15.3 K/mm3 (4.0-10.0)
[2018-09-10 10:17] LABS: INR 1.4 (0.83-1.09); PROTHROMBIN TIME (PATIENT) 16.6 SEC (9.7-13.0)
[2018-09-10 10:20] LABS: ACTIVATED PTT 24.8 SECONDS (25.2-36.5)
[2018-09-10] MEDS ORDERED: PT OWN MED DRAWER 7, Y5N ONE ×3 (10:26→16:55)
[2018-09-10] MEDS: CALCIUM 500MG/VIT-D 200 UNITS COMBO TABLET (FP) PO SCH ×2 (10:28→23:38)
[2018-09-10] MEDS: PANTOPRAZOLE SODIUM 40 MG VIAL IVPUSH SCH ×2 (10:28→23:39)
[2018-09-10] MEDS: CALCITRIOL 0.25 MCG CAPSULE (FP) PO SCH (10:29)
[2018-09-10] MEDS: BUPRENORPHINE/NALOXONE 8 MG/2 MG FILM PACKET SL SCH (10:30)
[2018-09-10] MEDS: HEPARIN NA (PORCINE) 5,000 UNITS/ML 1ML VIAL IVPUSH PRN ×2 (10:37→18:24)
[2018-09-10 11:01] LABS: ALBUMIN 1.2 g/dl (3.4-5.0); ALK PHOS 53 U/L (45-117); ANION GAP 14 MMOL/L (8-16); BILIRUBIN,TOTAL 0.3 mg/dL (0.2-1); BLOOD UREA NITROGEN 48 mg/dL (7-18); CHLORIDE 106 mmol/L (98-107); CO2 13 mmol/L (21-32); GLUCOSE,RANDOM 300 mg/dL (74-106); MAGNESIUM 1.6 mg/dL (1.8-2.4); PHOSPHOROUS 3.7 mg/dL (2.5-4.9); POTASSIUM 3.3 mmol/L (3.5-5.1); SGOT/AST 23 U/L (15-37); SGPT/ALT 50 U/L (13-61); SODIUM 133 mmol/L (136-145); TOT PROT 3.5 g/dl (6.4-8.2)
[2018-09-10 11:08] LABS: CALCIUM 6.8 mg/dL (8.5-10.1)
[2018-09-10 11:21] LABS: ANISOCYTOSIS 2+; MACROCYTOSIS 0; PLATELET ESTIMATE NORMAL
--- NOTE | 2018-09-10 11:52 | PN ---
Physical Exam: SUBJECTIVE: Patient seen and examined at bedside this morning. Patient is more alert and oriented. She is closer to baseline today. Patient reported no more episodes of diarrhea, and complains of belly pain and not voiding. Bladder scan done >900cc, straight cath ordered. OBJECTIVE: Vital Signs Period Temp Pulse Resp BP Sys/Funes Pulse Ox Last 24 Hr 98.5 F-98.8 F 106-116 16-20 119-135/51-64 96 GENERAL: The patient is awake, alert, and oriented, in no acute distress. More interactive today. HEAD: Normal with no signs of trauma. EYES: PERRLA, EOMI, sclera anicteric, conjunctiva clear. NECK: Trachea midline, full range of motion, supple. LUNGS: Breath sounds equal, clear to auscultation bilaterally. HEART: Regular rate and rhythm, S1, S2 without murmur, rub or gallop. ABDOMEN: soft, +LLQ/RLQ tenderness, nondistended, NABS, no guarding. EXTREMITIES: 2+ pulses, warm, well-perfused, no edema. SKIN: Warm, dry, normal turgor, no rashes or lesions noted Laboratory Results - last 24 hr 09/06/18 09/08/18 09/09/18 22:28 06:45 06:00 WBC RBC Hgb Hct MCV MCH MCHC RDW Plt Count MPV Absolute Neuts (auto) Neutrophils % Neutrophils % (Manual) 64.0 Band Neutrophils % 13.0 Lymphocytes % Lymphocytes % (Manual) 15.0 D Monocytes % Monocytes % (Manual) 5 Eosinophils % Eosinophils % (Manual) 2.0 D Basophils % Basophils % (Manual) 0.0 Myelocytes % (Man) 1 D Promyelocytes % (Man) 0 Blast Cells % (Manual) 0 Nucleated RBC % Metamyelocytes 0 Hypochromia 1+ Platelet Estimate Normal Polychromasia 1+ Poikilocytosis 0 Anisocytosis 1+ Microcytosis 1+ Macrocytosis 0 Target Cells 1+ PT with INR INR PTT (Actin FS) Sodium Potassium Chloride Carbon Dioxide Anion Gap BUN Creatinine Creat Clearance w eGFR POC Glucometer Random Glucose Calcium Phosphorus Magnesium Total Bilirubin AST ALT Alkaline Phosphatase Creatine Kinase Creatine Kinase Index CK-MB (CK-2) Total Protein Albumin Specimen Type CSF VDRL Non reactive CSF Lyme Disease DNA Cancelled CSF Herpes II IgG Ab Cancelled CSF West Nile IgG Ab Cancelled CSF West Nile IgM Ab Cancelled Stool Occult Blood Acetaminophen FRANSISCA Screen Negative Double Strand DNA Ab <1 S. pneumoniae Antigen Negative Blood Type Antibody Screen Antibody Identification Antigen Identification Crossmatch 09/09/18 09/09/18 09/09/18 11:40 17:19 18:30 WBC RBC Hgb Hct MCV MCH MCHC RDW Plt Count MPV Absolute Neuts (auto) Neutrophils % Neutrophils % (Manual) Band Neutrophils % Lymphocytes % Lymphocytes % (Manual) Monocytes % Monocytes % (Manual) Eosinophils % Eosinophils % (Manual) Basophils % Basophils % (Manual) Myelocytes % (Man) Promyelocytes % (Man) Blast Cells % (Manual) Nucleated RBC % Metamyelocytes Hypochromia Platelet Estimate Polychromasia Poikilocytosis Anisocytosis Microcytosis Macrocytosis Target Cells PT with INR INR PTT (Actin FS) Sodium Potassium Chloride Carbon Dioxide Anion Gap BUN Creatinine Creat Clearance w eGFR POC Glucometer 183 224 Random Glucose Calcium Phosphorus Magnesium Total Bilirubin AST ALT Alkaline Phosphatase Creatine Kinase Creatine Kinase Index CK-MB (CK-2) Total Protein Albumin Specimen Type CSF VDRL CSF Lyme Disease DNA CSF Herpes II IgG Ab CSF West Nile IgG Ab CSF West Nile IgM Ab Stool Occult Blood Positive Acetaminophen FRANSISCA Screen Double Strand DNA Ab S. pneumoniae Antigen Blood Type Antibody Screen Antibody Identification Antigen Identification Crossmatch 09/09/18 09/09/18 09/09/18 20:45 20:45 20:45 WBC 12.8 H RBC 3.24 L Hgb 8.0 L Hct 25.8 L MCV 79.7 L MCH 24.6 L MCHC 30.9 L RDW 17.6 H Plt Count 296 MPV 7.8 Absolute Neuts (auto) Neutrophils % Neutrophils % (Manual) Band Neutrophils % Lymphocytes % Lymphocytes % (Manual) Monocytes % Monocytes % (Manual) Eosinophils % Eosinophils % (Manual) Basophils % Basophils % (Manual) Myelocytes % (Man) Promyelocytes % (Man) Blast Cells % (Manual) Nucleated RBC % Metamyelocytes Hypochromia Platelet Estimate Polychromasia Poikilocytosis Anisocytosis Microcytosis Macrocytosis Target Cells PT with INR INR PTT (Actin FS) Sodium 133 L Potassium 3.7 Chloride 108 H Carbon Dioxide 18 L Anion Gap 6 L BUN 62 H Creatinine 1.3 Creat Clearance w eGFR 41.92 POC Glucometer Random Glucose 183 H Calcium 7.7 L Phosphorus Magnesium Total Bilirubin AST ALT Alkaline Phosphatase Creatine Kinase 431 H Creatine Kinase Index 0.5 CK-MB (CK-2) 2.2 Total Protein Albumin Specimen Type CSF VDRL CSF Lyme Disease DNA CSF Herpes II IgG Ab CSF West Nile IgG Ab CSF West Nile IgM Ab Stool Occult Blood Acetaminophen 5.3 L FRANSISCA Screen Double Strand DNA Ab S. pneumoniae Antigen Blood Type Antibody Screen Antibody Identification Antigen Identification Crossmatch 09/09/18 09/09/18 09/10/18 20:45 21:32 05:37 WBC RBC Hgb Hct MCV MCH MCHC RDW Plt Count MPV Absolute Neuts (auto) Neutrophils % Neutrophils % (Manual) Band Neutrophils % Lymphocytes % Lymphocytes % (Manual) Monocytes % Monocytes % (Manual) Eosinophils % Eosinophils % (Manual) Basophils % Basophils % (Manual) Myelocytes % (Man) Promyelocytes % (Man) Blast Cells % (Manual) Nucleated RBC % Metamyelocytes Hypochromia Platelet Estimate Polychromasia Poikilocytosis Anisocytosis Microcytosis Macrocytosis Target Cells PT with INR INR PTT (Actin FS) 27.7 Sodium Potassium Chloride Carbon Dioxide Anion Gap BUN Creatinine Creat Clearance w eGFR POC Glucometer 230 216 Random Glucose Calcium Phosphorus Magnesium Total Bilirubin AST ALT Alkaline Phosphatase Creatine Kinase Creatine Kinase Index CK-MB (CK-2) Total Protein Albumin Specimen Type CSF VDRL CSF Lyme Disease DNA CSF Herpes II IgG Ab CSF West Nile IgG Ab CSF West Nile IgM Ab Stool Occult Blood Acetaminophen FRANSISCA Screen Double Strand DNA Ab S. pneumoniae Antigen Blood Type Antibody Screen Antibody Identification Antigen Identification Crossmatch 09/10/18 09/10/18 09/10/18 06:00 06:00 06:00 WBC 13.2 H RBC 2.80 L Hgb 6.9 L* Hct 22.1 L MCV 79.1 L MCH 24.7 L MCHC 31.2 L RDW 17.0 H Plt Count 231 D MPV 7.4 L Absolute Neuts (auto) 10.9 H Neutrophils % 82.4 Neutrophils % (Manual) 73.3 Band Neutrophils % 4.9 Lymphocytes % 9.3 Lymphocytes % (Manual) 15.8 Monocytes % 7.3 Monocytes % (Manual) 3 L Eosinophils % 0.9 Eosinophils % (Manual) 1.0 Basophils % 0.1 Basophils % (Manual) 0.0 Myelocytes % (Man) 1 Promyelocytes % (Man) 0 Blast Cells % (Manual) 0 Nucleated RBC % 0 Metamyelocytes 1 D Hypochromia 0 Platelet Estimate Normal Polychromasia 0 Poikilocytosis 2+ Anisocytosis 2+ Microcytosis 2+ Macrocytosis 0 Target Cells PT with INR INR PTT (Actin FS) Cancelled Sodium 133 L Potassium 3.3 L Chloride 106 Carbon Dioxide 13 L Anion Gap 14 BUN 48 H Creatinine 1.0 Creat Clearance w eGFR 56.75 POC Glucometer Random Glucose 300 H Calcium 6.8 L* Phosphorus 3.7 Magnesium 1.6 L Total Bilirubin 0.3 AST 23 ALT 50 Alkaline Phosphatase 53 Creatine Kinase 153 Creatine Kinase Index 0.9 CK-MB (CK-2) 1.4 Total Protein 3.5 L Albumin 1.2 L Specimen Type CSF VDRL CSF Lyme Disease DNA CSF Herpes II IgG Ab CSF West Nile IgG Ab CSF West Nile IgM Ab Stool Occult Blood Acetaminophen FRANSISCA Screen Double Strand DNA Ab S. pneumoniae Antigen Blood Type Antibody Screen Antibody Identification Antigen Identification Crossmatch 09/10/18 09/10/18 09/10/18 08:20 09:00 09:00 WBC 15.3 H RBC 3.09 L Hgb 7.4 L Hct 24.4 L MCV 79.0 L MCH 24.0 L MCHC 30.4 L RDW 17.1 H Plt Count 256 MPV 7.3 L Absolute Neuts (auto) Neutrophils % Neutrophils % (Manual) Band Neutrophils % Lymphocytes % Lymphocytes % (Manual) Monocytes % Monocytes % (Manual) Eosinophils % Eosinophils % (Manual) Basophils % Basophils % (Manual) Myelocytes % (Man) Promyelocytes % (Man) Blast Cells % (Manual) Nucleated RBC % Metamyelocytes Hypochromia Platelet Estimate Polychromasia Poikilocytosis Anisocytosis Microcytosis Macrocytosis Target Cells PT with INR 16.60 H INR 1.40 H PTT (Actin FS) 24.8 L Sodium Potassium Chloride Carbon Dioxide Anion Gap BUN Creatinine Creat Clearance w eGFR POC Glucometer Random Glucose Calcium Phosphorus Magnesium Total Bilirubin AST ALT Alkaline Phosphatase Creatine Kinase Creatine Kinase Index CK-MB (CK-2) Total Protein Albumin Specimen Type CSF VDRL CSF Lyme Disease DNA CSF Herpes II IgG Ab CSF West Nile IgG Ab CSF West Nile IgM Ab Stool Occult Blood Acetaminophen FRANSISCA Screen Double Strand DNA Ab S. pneumoniae Antigen Blood Type O POSITIVE Antibody Screen Positive H Antibody Identification Anti-K Antigen Identification No Result Required. Crossmatch See Detail Active Medications Generic Name Dose Route Start Last Admin Trade Name Sharanq PRN Reason Stop Dose Admin Buprenorphine/Naloxone 1 each 09/09/18 10:00 09/10/18 10:30 Suboxone 8mg/2mg Sl Film - SL Not Given DAILY [facility] Calcitriol 0.5 mcg 09/09/18 10:00 09/10/18 10:29 Rocaltrol - PO 0.5 mcg DAILY YAMILKA Administration Calcium Carbonate/Cholecalciferol 2 tab 09/09/18 10:00 09/10/18 10:28 Os-Willy 500+D - PO 2 tab BID YAMILKA Administration Heparin Sodium (Porcine) 5,000 unit 09/08/18 16:58 09/10/18 10:37 Heparin - IVPUSH 5,000 unit PRN PRN Administration Heparin Heparin Sodium (Porcine) 1,000 unit 09/08/18 16:58 09/09/18 09:24 Heparin - IVPUSH 1,000 unit PRN PRN Administration Heparin Heparin Sodium/Dextrose 25,000 units in 500 mls @ 20 mls/hr 09/08/18 23:48 10:37 Heparin Infusion - IVPB 1,550 units/hr TITR YAMILKA 31 mls/hr Titration Protocol 1,000 UNITS/HR Sodium Chloride 1,000 mls @ 50 mls/hr 09/09/18 12:15 09/10/18 06:01 1/2 Normal Saline IV 50 mls/hr ASDIR YAMILKA Administration Insulin Aspart 1 vial 09/09/18 07:00 09/10/18 06:03 Novolog Vial Sliding Scale - SQ 4 units ACHS YAMILKA Administration Protocol Pantoprazole Sodium 40 mg 09/09/18 10:30 09/10/18 10:28 Protonix Iv IVPUSH 40 mg BID YAMILKA Administration ASSESSMENT/PLAN: Patient is a 58 year old female with a significant past medical history of opiate abuse, HTN, IDDM, s/p gastric bypass, recurrent anemia, gastric ulcer, possible ischemic colitis, chronic diarrhea, DVT on Eliquis who was BIBA due to altered mental status and poor PO intake. #Altered mental status: likely 2/2 Uremia 2/2 Acetaminophen toxicity -Patient reportedly took 80 tablets of percocet in the last 5 days. It is unknown if patient took it at the same time or was distributed over 5 days or last intake. -Acetaminophen level 9.2 on admission, level trending down, 5.3 today. -Urine toxicology: +opiates -Poison control contacted, NAC can be discontinued as LFTs are improving -Continue 1/2 NS @50ml/hr. #Transaminitis 2/2 Acetominophen toxicity -AST/ALT on admission: 421/266; trending down 23/50. -Will monitor #ELLA/Rhabdomyolysis -BUN/CR 137/4.8 on admission, trending down 75/1.6 -CK 8182, trending down, will monitor CK level BID -IVF given -Bladder scan today >900cc, straight cath ordered. -Encouraged patient to ambulate. -Nephrology (Dr. Calderón) consulted. Recommendations appreciated: - cpk is improving - decrease rate of fluids to 50 - d/c mcdonald. - renal function is improving - likely severe prerenal disease causing ATN - renal workup in progress #Opioid abuse -patient refused to take Suboxone today. -Will order stool cx, c.diff, and wbc. -Dr. Rich consulted. Recommendations appreciated: -Pt is probably not a candidate to resume percocets. -Suboxone- will start 2mg today and increase to 8mg tomorrow and may increase to BID if needed and tolerated. -Please call [facility]- [phone], for an initial appt for Suboxone treatment- pt is agreeable for this Rx. #Hx of DVT -On eliquis, put on hold due to renal function -On Heparin drip -Will transition back to Eliquis when renal function normalizes #?Suicide risk -1:1 observation -Psychiatrist (Dr. Watts) consulted. Case referred to [facility]. -Recommendations appreciated: -will recommend find a bed in psychiatry. -Has cluster behaviour health family independence case manager Dipesh at [phone] -Major Depression with suicidal ideation. -Client preference is [facility]. -Offered SSRI at present, but refused. #Acute on Chronic Normocytic anemia -Hgb 7.5 today. -FOBT ordered. -will monitor H/H #Hyperkalemia: resolved -6.3 on admission -Received Calcium Gluconate, Insulin +D5W, Albuterol, and Sodium Bicarb -repeat K 4.4 -will continue to monitor #DM -Insulin Sliding Scale -BGM ACHS #FEN -1/2NS@50cc/hr -hypoK, hypoMg, replete as necessary -routine cmp monitoring -diabetic diet #Prophylaxis -patient was on eliquis. Held due to ARF -Heparin drip #Disposition -transfer to tele Visit type - Emergency Visit Emergency Visit: Yes ED Registration Date: 09/06/18 Care time: The patient presented to the Emergency Department on the above date and was hospitalized for further evaluation of their emergent condition. - New Patient This patient is new to me today: Yes Date on this admission: 09/11/18 - Critical Care Critical Care patient: No
[2018-09-10] MEDS ORDERED: PROCHLORPERAZINE MALEATE 5 MG TABLET PO ONE (13:52)
[2018-09-10] MEDS ORDERED: POTASSIUM CHLORIDE TABS 20 MEQ TABLET.ER (FP) PO ONE (15:43)
--- NOTE | 2018-09-10 15:43 | PN ---
Progress Note, Physician History of Present Illness: Pt seen and examined at bedside. She is awake and alert. She denies shortness of breath. She tolerated voiding trial. - Current Medication List Current Medications: Active Medications Buprenorphine/Naloxone (Suboxone 8mg/2mg Sl Film -) 1 each SL DAILY [facility] Last Admin: 09/10/18 10:30 Dose: Not Given Calcitriol (Rocaltrol -) 0.5 mcg PO DAILY [facility] Last Admin: 09/10/18 10:29 Dose: 0.5 mcg Calcium Carbonate/Cholecalciferol (Os-Willy 500+D -) 2 tab PO BID [facility] Last Admin: 09/10/18 10:28 Dose: 2 tab Heparin Sodium (Porcine) (Heparin -) 5,000 unit IVPUSH PRN PRN PRN Reason: Heparin Last Admin: 09/10/18 10:37 Dose: 5,000 unit Heparin Sodium (Porcine) (Heparin -) 1,000 unit IVPUSH PRN PRN PRN Reason: Heparin Last Admin: 09/09/18 09:24 Dose: 1,000 unit Heparin Sodium/Dextrose (Heparin Infusion -) 25,000 units in 500 mls @ 20 mls/ hr IVPB TITR [facility]; Protocol Last Titration: 09/10/18 10:37 Dose: 1,550 units/hr, 31 mls/hr Sodium Chloride (1/2 Normal Saline) 1,000 mls @ 50 mls/hr IV ASDIR [facility] Last Admin: 09/10/18 12:23 Dose: 50 mls/hr Insulin Aspart (Novolog Vial Sliding Scale -) 1 vial SQ ACHS [facility]; Protocol Last Admin: 09/10/18 12:23 Dose: 2 units Pantoprazole Sodium (Protonix Iv) 40 mg IVPUSH BID [facility] Last Admin: 09/10/18 10:28 Dose: 40 mg - Objective Vital Signs: Vital Signs Temperature 99.2 F 09/10/18 13:53 Pulse Rate 112 H 09/10/18 13:53 Respiratory Rate 18 09/10/18 13:53 Blood Pressure 132/63 09/10/18 13:53 O2 Sat by Pulse Oximetry (%) 98 09/10/18 09:00 Constitutional: Yes: Calm Eyes: Yes: Conjunctiva Clear HENT: Yes: Atraumatic Neck: Yes: Supple Cardiovascular: Yes: S1, S2 Respiratory: Yes: CTA Bilaterally Gastrointestinal: Yes: Soft Musculoskeletal: Yes: WNL Edema: Yes Edema: LLE: Trace, RLE: Trace Neurological: Yes: Oriented Psychiatric: Yes: Oriented Labs: CBC, BMP 09/10/18 09:00 09/10/18 06:00 INR, PTT INR 1.40 (0.83-1.09) H 09/10/18 09:00 Problem List - Problems (1) ARF (acute renal failure) Code(s): N17.9 - ACUTE KIDNEY FAILURE, UNSPECIFIED Qualifiers: Acute renal failure type: unspecified Qualified Code(s): N17.9 - Acute kidney failure, unspecified (2) Acetaminophen toxicity Code(s): T39.1X1A - POISONING BY 4-AMINOPHENOL DERIVATIVES, ACCIDENTAL, INIT Qualifiers: Encounter type: initial encounter Injury intent: undetermined intent Qualified Code(s): T39.1X4A - Poisoning by 4-Aminophenol derivatives, undetermined, initial encounter (3) Fever Code(s): R50.9 - FEVER, UNSPECIFIED Qualifiers: Fever type: unspecified Qualified Code(s): R50.9 - Fever, unspecified (4) Hyperkalemia Code(s): E87.5 - HYPERKALEMIA (5) Rhabdomyolysis Code(s): M62.82 - RHABDOMYOLYSIS Qualifiers: Rhabdomyolysis type: non-traumatic Qualified Code(s): M62.82 - Rhabdomyolysis Assessment/Plan Current Medications Generic Name Dose Route Start Last Admin Trade Name Freq PRN Reason Stop Dose Admin Buprenorphine/Naloxone 1 each 09/09/18 10:00 09/10/18 10:30 Suboxone 8mg/2mg Sl Film - SL Not Given DAILY [facility] Calcitriol 0.5 mcg 09/09/18 10:00 09/10/18 10:29 Rocaltrol - PO 0.5 mcg DAILY YAMILKA Administration Calcium Carbonate/Cholecalciferol 2 tab 09/09/18 10:00 09/10/18 10:28 Os-Willy 500+D - PO 2 tab BID YAMILKA Administration Heparin Sodium (Porcine) 5,000 unit 09/08/18 16:58 09/10/18 10:37 Heparin - IVPUSH 5,000 unit PRN PRN Administration Heparin Heparin Sodium (Porcine) 1,000 unit 09/08/18 16:58 09/09/18 09:24 Heparin - IVPUSH 1,000 unit PRN PRN Administration Heparin Heparin Sodium/Dextrose 25,000 units in 500 mls @ 20 mls/hr 09/08/18 23:48 10:37 Heparin Infusion - IVPB 1,550 units/hr TITR YAMILKA 31 mls/hr Titration Protocol 1,000 UNITS/HR Sodium Chloride 1,000 mls @ 50 mls/hr 09/09/18 12:15 09/10/18 12:23 1/2 Normal Saline IV 50 mls/hr ASDIR YAMILKA Administration Insulin Aspart 1 vial 09/09/18 07:00 09/10/18 12:23 Novolog Vial Sliding Scale - SQ 2 units ACHS YAMILKA Administration Protocol Pantoprazole Sodium 40 mg 09/09/18 10:30 09/10/18 10:28 Protonix Iv IVPUSH 40 mg BID YAMILKA Administration Laboratory Tests 09/10/18 06:00 Potassium 3.3 L Calcium 6.8 L* Magnesium 1.6 L Creatine Kinase 153 Albumin 1.2 L Impression 1. ELLA 2. hyperkalemia 3. drug overdose 4. tylenol toxicity 5. rhabdo 6. opioid dependence 7. microscopic hematuria 8. anemia 9. HTN 10. DM 11. hypocalcemia 12, malnutrition Plan - can d/c fluids - replace potassium - replace mag - will need better glucose control - cpk improving - likely severe prerenal disease causing ATN - renal workup in progress
[2018-09-10] MEDS ORDERED: SODIUM CHLORIDE 0.45% 1,000 ML IV SCH (15:44)
[2018-09-10] MEDS ORDERED: MAGNESIUM SULF 50% (8.12 MEQ/2 ML-1 GM VIAL) IVPB ONE (17:00)
--- NOTE | 2018-09-10 18:24 | CON.GI ---
Consult Consult Specialty:: GI Referred by:: Hospitalist service Reason for Consultation:: fecal occult blood test + - History of Present Illness Chief Complaint: Altered mental status History of Present Illness: 58 F admitted for evaluation of altered mental status. There was a suspected percocet overdose and she was treated with NAC for possible liver toxicity from APAP. I had evaluated her in 06/17 for diarrhea. At that time, EGD revealed ulcers just distal to her gastroenteric ansatamosis and colonoscopy revealed deeply ulcerated mucosa in the left colon and sigmoid. I suspected ischemic colitis however ASCA serologies were positive. She never followed up as an outpatient at that time and actually signed out AMA despite the diagnosis of an extensive LE DVT and worsening anemia. She was readmitted 07/18 for diarrhea. She was placed on Asacol HD 800 mg PO TID. She bnever followed up after that admission and was radmitted 08/19 with an extremely elevated INR. At that time she underwent flexible sigmoidoscopy performed by Dr. Tayo Torres that revealed improved appearance of the sigmoid ulcerations. Biopsies did reveal active colitis. She never followed up after that admssion. She is quite a poor historian. She explains that her diarrhea was improved prior to her admission. She then states that she had explosive diarrhea while admitted. She underwent lumbar puncture as well. 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 Cardio/Vascular: Yes: HTN, Hyperlipdemia Gastrointestinal: Yes: Other (personal history of colon polyps) Renal/: Yes: Other (ELLA) Infectious Disease: Yes: Other (PPD + per previous records) Musculoskeletal: Yes: Chronic low back pain Endocrine: Yes: Diabetes Mellitus - Past Surgical History Past Surgical History: Yes: Bariatric Surgery (gastric bypass 2008), Cholecystectomy - Alcohol/Substance Use Hx Alcohol Use: No History of Substance Use: reports: None, Prescription (percocet) - Smoking History Smoking history: Unknown if ever smoked Have you smoked in the past 12 months: No Aproximately how many cigarettes per day: 0 - Social History Usual Living Arrangement: With Spouse ADL: Independent History of Recent Travel: No Home Medications - Allergies Allergies/Adverse Reactions: Allergies Allergy/AdvReac Type Severity Reaction Status Date / Time No Known Allergies Allergy Verified 09/06/18 15:25 - Home Medications Home Medications: Ambulatory Orders Glimepiride [Amaryl -] 4 mg PO BID 10/26/12 Cholecalciferol (Vitamin D3) [Vitamin D3] 2,000 unit PO DAILY 07/14/14 Fenofibrate Nanocrystallized [Tricor] 145 mg PO DAILY 07/14/14 Insulin Lispro [Humalog] 5 unit SQ AC 07/14/14 Multivitamins [Multivit ([facility] Formulary)] 1 tab PO DAILY 07/14/14 Acarbose [Precose -] 25 mg PO TID 06/25/18 Duloxetine HCl [Cymbalta] 30 mg PO DAILY 06/25/18 Omeprazole 20 mg PO DAILY 06/27/18 Ferrous Sulfate [Feosol] 325 mg PO DAILY #30 ud 07/15/18 Insulin Aspart [Novolog Flexpen] See Protocol SQ ACHS #5 insuln.pen 07/15/18 Mesalamine [Asacol HD -] 800 mg PO TID #60 tablet. 07/15/18 Oxycodone HCl 5 mg PO Q6H #8 tablet MDD 2 07/15/18 Apixaban [Eliquis] 5 mg PO BID #60 tablet 08/06/18 Lisinopril 2.5 mg PO DAILY #30 tablet 08/06/18 Metformin HCl 850 mg PO BID 09/07/18 Oxycodone HCl/Acetaminophen [Percocet 10-325 mg Tablet] 1 each PO TID PRN Pravastatin Sodium [Pravachol (Nf)] 80 mg PO HS 09/07/18 Sitagliptin Phosphate [Januvia] 100 mg PO DAILY 09/07/18 Family Disease History - Family Disease History Family Disease History: Other: Father (: 52: [place]. ? h/o crohn's ), Mother ( Alive: healthy), Brother (1, healthy), Sister (2, healthy) Review of Systems - Review of Systems Constitutional: denies: Chills Cardiovascular: denies: Palpitations Gastrointestinal: reports: Diarrhea. denies: Abdominal Pain, Rectal Bleeding Physical Exam-GI Vital Signs: Vital Signs Temperature 101.6 F H 09/10/18 18:16 Pulse Rate 118 H 09/10/18 18:16 Respiratory Rate 20 09/10/18 18:16 Blood Pressure 122/62 09/10/18 18:16 O2 Sat by Pulse Oximetry (%) 98 09/10/18 09:00 Constitutional: Yes: Calm Eyes: No: Sclera Icterus Cardiovascular: Yes: Tachycardia Respiratory: Yes: Diminished (at bases b/l) Gastrointestinal Inspection: No: Distention ...Auscultate: Yes: Normoactive Bowel Sounds ...Palpate: Yes: Tenderness (TTP suprapubic region and left abdomen) ...Percussion: No: Tympanitic ...Rectal Exam: Yes: Deferred (patient refused) Edema: No (No LE edema) Neurological: Yes: Alert Labs: CBC, BMP 09/10/18 09:00 09/10/18 06:00 INR, PTT INR 1.40 (0.83-1.09) H 09/10/18 09:00 Problem List - Problems (1) Diarrhea Assessment/Plan: Asacol HD 800mg PO TID Low fiber diet Code(s): R19.7 - DIARRHEA, UNSPECIFIED Qualifiers: Diarrhea type: unspecified type Qualified Code(s): R19.7 - Diarrhea, unspecified (2) Abdominal pain Assessment/Plan: Follow-up prior study of distended proximal small bowel loops suggestive of SBO Repeat CT scan with PO contrast Code(s): R10.9 - UNSPECIFIED ABDOMINAL PAIN
--- NOTE | 2018-09-10 20:53 | PN ---
Progress Note (short form) - Note Progress Note: PATIENT IS 58 YO FEMALE WITH NO PAST PSYCH HISTORY TO TOOK MULTIPLE EXTRA OXYCODONE TABS THAT SHE IS PRESCRIBED FOR SHOLDER PAIN? Client has a history of being followed at [facility] out patient in [place]. Stopped attending after her therapist left. REPORT BY CHET hooker THAT SHE IS PASSIVE ON UNIT, SAD AFFECT , ONLY TALKS WHEN SPOKEN TO, NOW ON 1;1, HAS NOT WALKED YET. cLIENT IS selective HISTORIAN, BUT has a PSYCHIATRIC HISTORY, NOW ON SUBOXONE DURING OPIATE WITHRAWL.Was on klonopin in past. cLIENT IS ALERT BUT DISORIENTATED BY 2, DOES NOT KNOW DATE, HOLIDAY OR HOSPITAL. Cognitively is clear today. nO AGITATION, DENIES SUICIDAL OR HOMICIDAL IDEATION. NO PSYCHOSIS,endorsed DEPRESSION, 10/10 ANXIETY . will recommend find a bed in psychiatry. 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 CL[facility]REF[facility]ENCE [facility] OFFERED SSRI AT PRESENT, BUT REFUSED. SEEN PATIENT THIS AFTERNOON, ANXIOUS, GETTING OUT OF BED "I WANT TO GO HOME". HAS A FEVER AND INCREASED PULSE RATE.. IN WITHRAWL POSSIBLY FROM OPIATES. MAY USE VISTARIL 50MG FOR SLEEP. SPOKE WITH rn WHO IA FOLLOWING WILL CALL FLOOR MD TO RELAY CURRENT STATUS. Problem List - Problems (1) Memory loss or impairment Code(s): R41.3 - OTHER AMNESIA (2) Depression, major, severe recurrence Code(s): F33.2 - MAJOR DEPRESSV DISORDER, RECURRENT SEVERE W/O PSYCH FEATURES
--- NOTE | 2018-09-10 22:22 | HOSP ---
Physical Examination Vital Signs: Vital Signs Temperature 101.6 F H 09/10/18 18:16 Pulse Rate 118 H 09/10/18 18:16 Respiratory Rate 20 09/10/18 18:16 Blood Pressure 122/62 09/10/18 18:16 O2 Sat by Pulse Oximetry (%) 98 09/10/18 09:00 Labs: CBC, BMP 09/10/18 09:00 09/10/18 06:00 Hospitalist Encounter Assessment: Paged by nurse stating pt trying to leave her bed and leave hospital. Informed by nurse that pt has called 911 four times stating that she is being abducted. Examined pt, explained to her risks and harm of leaving hospital prematurely and without complete medical workup. Pt does not demonstrate full mental capacity to leave AMA. Could not explain or repeat basic information that was thoroughly explain to her. Nurse and senior resident at bedside.
[2018-09-11 00:09] LABS: ATYPICAL pANCA <1:20 titer (Neg:<1:20); C-ANCA <1:20 titer (Neg:<1:20); P-ANCA <1:20 titer (Neg:<1:20)
[2018-09-11 07:42] LABS: BASO % 0.1 % (0-2.0); EOS % 0.4 % (0-4.5); HEMATOCRIT 23.5 % (32.4-45.2); HEMOGLOBIN 7.1 GM/dL (10.7-15.3); LYMPH % 9.5 % (8-40); MCH 24.1 pg (25.7-33.7); MCHC 30.3 g/dl (32.0-36.0); MEAN CELL VOLUME 79.4 fl (80-96); MEAN PLT VOLUME 7.5 fl (7.5-11.1); MONO % 7.8 % (3.8-10.2); NEUT % 82.2 % (42.8-82.8); PLATELET COUNT 248 K/MM3 (134-434); RBC 2.96 M/mm3 (3.60-5.2); RDW 16.9 % (11.6-15.6); WHITE BLOOD COUNT 14.9 K/mm3 (4.0-10.0)
[2018-09-11 07:49] LABS: ALBUMIN 1.5 g/dl (3.4-5.0); ALK PHOS 60 U/L (45-117); ANION GAP 13 MMOL/L (8-16); BILIRUBIN,TOTAL 0.4 mg/dL (0.2-1); BLOOD UREA NITROGEN 34 mg/dL (7-18); CALCIUM 7.5 mg/dL (8.5-10.1); CHLORIDE 109 mmol/L (98-107); CO2 14 mmol/L (21-32); CREATININE 0.7 mg/dL (0.55-1.3); GLUCOSE,RANDOM 196 mg/dL (74-106); MAGNESIUM 1.9 mg/dL (1.8-2.4); PHOSPHOROUS 2.3 mg/dL (2.5-4.9); POTASSIUM 4.3 mmol/L (3.5-5.1); SGOT/AST 21 U/L (15-37); SGPT/ALT 47 U/L (13-61); SODIUM 136 mmol/L (136-145); TOT PROT 4.4 g/dl (6.4-8.2)
[2018-09-11] MEDS ORDERED: MAGNESIUM OXIDE 400 MG TABLET (FP) PO ONE (08:21)
[2018-09-11] MEDS ORDERED: NAPH,MB-DB/K PH,MBDB POWDER PACKET PO ONE (08:21)
[2018-09-11] MEDS ORDERED: PT OWN MED DRAWER 7, Y5N ONE ×2 (09:35→19:56)
[2018-09-11] MEDS: CALCIUM 500MG/VIT-D 200 UNITS COMBO TABLET (FP) PO SCH ×2 (09:37→22:58)
[2018-09-11] MEDS: PANTOPRAZOLE SODIUM 40 MG VIAL IVPUSH SCH ×2 (09:38→22:58)
[2018-09-11] MEDS: BUPRENORPHINE/NALOXONE 8 MG/2 MG FILM PACKET SL SCH (09:38)
[2018-09-11] MEDS: CALCITRIOL 0.25 MCG CAPSULE (FP) PO SCH (09:38)
--- NOTE | 2018-09-11 11:54 | PN ---
Teaching Attending Note Name of Resident: Odette Garcia ATTENDING PHYSICIAN STATEMENT I saw and evaluated the patient. I reviewed the resident's note and discussed the case with the resident. I agree with the resident's findings and plan as documented with exceptions below. SUBJECTIVE: Patient seen and examined. AOX3, denies any pain or complaints. Able to recollect some events overnight. OBJECTIVE: Vital Signs Period Temp Pulse Resp BP Sys/Funes Pulse Ox Last 24 Hr 98.1 F-102.1 F 107-118 18-22 122-141/56-63 95 Intake & Output 09/08/18 09/09/18 09/10/18 09/11/18 23:59 23:59 23:59 23:59 Intake Total 620 2128.5 1321 504 Output Total 1900 1300 2 Balance -1280 828.5 1319 504 Weight 160 lb general: sitting in bed in no acute distress Chest: decreased effort, no rales or wheezing Abdomen:soft, obese, NT Extremities: markedly improved left hand edema Active Medications Buprenorphine/Naloxone (Suboxone 8mg/2mg Sl Film -) 1 each SL DAILY [facility] Last Admin: 09/11/18 09:38 Dose: Not Given Calcitriol (Rocaltrol -) 0.5 mcg PO DAILY [facility] Last Admin: 09/11/18 09:38 Dose: 0.5 mcg Calcium Carbonate/Cholecalciferol (Os-Willy 500+D -) 2 tab PO BID [facility] Last Admin: 09/11/18 09:37 Dose: 2 tab Heparin Sodium (Porcine) (Heparin -) 5,000 unit IVPUSH PRN PRN PRN Reason: Heparin Last Admin: 09/10/18 18:24 Dose: 5,000 unit Heparin Sodium (Porcine) (Heparin -) 1,000 unit IVPUSH PRN PRN PRN Reason: Heparin Last Admin: 09/09/18 09:24 Dose: 1,000 unit Hydroxyzine Pamoate (Vistaril -) 50 mg PO HS PRN PRN Reason: INSOMNIA Heparin Sodium/Dextrose (Heparin Infusion -) 25,000 units in 500 mls @ 20 mls/ hr IVPB TITR [facility]; Protocol Last Titration: 09/10/18 18:24 Dose: 1,700 units/hr, 34 mls/hr Sodium Chloride (1/2 Normal Saline) 1,000 mls @ 42 mls/hr IV ASDIR [facility] Last Admin: 09/10/18 17:05 Dose: 42 mls/hr Insulin Aspart (Novolog Vial Sliding Scale -) 1 vial SQ ACHS [facility]; Protocol Last Admin: 09/10/18 23:44 Dose: Not Given Pantoprazole Sodium (Protonix Iv) 40 mg IVPUSH BID [facility] Last Admin: 09/11/18 09:38 Dose: 40 mg Laboratory Results - last 24 hr 09/08/18 09/10/18 09/10/18 06:45 12:04 16:30 WBC RBC Hgb Hct MCV MCH MCHC RDW Plt Count MPV Absolute Neuts (auto) Neutrophils % Lymphocytes % Monocytes % Eosinophils % Basophils % Nucleated RBC % PTT (Actin FS) 27.2 Sodium Potassium Chloride Carbon Dioxide Anion Gap BUN Creatinine Creat Clearance w eGFR POC Glucometer 197 Random Glucose Calcium Phosphorus Magnesium Total Bilirubin AST ALT Alkaline Phosphatase Total Protein Albumin c-ANCA <1:20 Proteinase 3 (PR3) <3.5 p-ANCA <1:20 Atypical p-ANCA <1:20 Myeloperoxidase Ab <9.0 09/10/18 09/10/18 09/11/18 17:07 23:38 06:00 WBC RBC Hgb Hct MCV MCH MCHC RDW Plt Count MPV Absolute Neuts (auto) Neutrophils % Lymphocytes % Monocytes % Eosinophils % Basophils % Nucleated RBC % PTT (Actin FS) Sodium 136 Potassium 4.3 Chloride 109 H Carbon Dioxide 14 L Anion Gap 13 BUN 34 H Creatinine 0.7 Creat Clearance w eGFR > 60 POC Glucometer 168 147 Random Glucose 196 H Calcium 7.5 L Phosphorus 2.3 L Magnesium 1.9 Total Bilirubin 0.4 AST 21 ALT 47 Alkaline Phosphatase 60 Total Protein 4.4 L Albumin 1.5 L c-ANCA Proteinase 3 (PR3) p-ANCA Atypical p-ANCA Myeloperoxidase Ab 09/11/18 09/11/18 06:45 06:45 WBC 14.9 H RBC 2.96 L Hgb 7.1 L Hct 23.5 L MCV 79.4 L MCH 24.1 L MCHC 30.3 L RDW 16.9 H Plt Count 248 MPV 7.5 Absolute Neuts (auto) 12.3 H Neutrophils % 82.2 Lymphocytes % 9.5 Monocytes % 7.8 Eosinophils % 0.4 Basophils % 0.1 Nucleated RBC % 0 PTT (Actin FS) 26.4 Sodium Potassium Chloride Carbon Dioxide Anion Gap BUN Creatinine Creat Clearance w eGFR POC Glucometer Random Glucose Calcium Phosphorus Magnesium Total Bilirubin AST ALT Alkaline Phosphatase Total Protein Albumin c-ANCA Proteinase 3 (PR3) p-ANCA Atypical p-ANCA Myeloperoxidase Ab CXR - improved aeration ASSESSMENT AND PLAN: 58 yo F with PMHx of Gastric bypass (?2004), recurrent anemia, prior EGD/ colonoscopy in 05/2018 showing gastric ulcers at anastomotic site/Possible ischemic colitis, recent RLE DVT on eliquis, IDDM, HTN, chronic diarrhea, opioid dependence, brought to the ER with lethargy and anorexia. was recently prescribed percocet by per rug touch up painter. She was prescribed 90 pills and there was only 10 remaining after 4 days -Suspected Intentional percocet Overdose (denies SI or suicidal attempt, reports for pain control) -ELLA, multifactorial from dehydration/rhabdomyolysis/acidosis -Anion gap metabolic acidosis -Rhabdomyolysis -Tachycardia -Acute toxic metabolic encephalopathy, multifactorial from above -Acute LUE cephalic vein thrombosis, limited visualization of remaining veins -Transaminitis, resolving -Left sided abdominal pain, chronic, inconsistent exam -Diarrhea, ?opioid withdrawal, r/o C difficile but low suspicion -Acute on chronic Normocytic anemia -Hyperkalemia -Hypophosphatemia -NIDDM -h/o gastric bypass -h/o DVT on eliquis -H/o gastric ulcers/ischemic colitis -HTN -Opioid dependence -Fever Plan: Fever noted, overnight events noted, Currently AAOx3. LP on admission neg for concerns. CXR neg Check u/a, urine/blood cx. Monitor off abx for now. Stool C difficile neg. h.h overall stable from yesterday. no gross evidence of bleed or hemodynamic instablity GI input noted. CT A/P results reviewed. Clinical exam not consistent with SBO, patient with diarrhea. Declines repeat oral Contrast Serial exams and clinical monitoring. stool studies. Protonix IV BID Transfuse 1 unit PRBC. FOBT pos. Extensive known h/o recurrent anemia requiring transfusions, also with EGD in 2017 with ulceration at anastomotic site, Colonscopy in 08/2018 with possible ischemic colitis. Monitor h/h closely while on heparin drip. transition to eliquis once GIB and anemia concerns resolve. Tylenol level/LFTs/Coags improved, Off NAC drip. Intermittent concerns for AMS, erratic behavior, known prior history. Psych input noted. For inpatient psych once improved. Repeat drug screen. ELLA resolved. Renal input. IVF per renal. CPK improved. K normalized. Replete phos Psych input noted. Plan for inpatient psych once medial issues resolve. Detox input noted, not a candidate for percocet, Continue suboxone. ISS, diabetic diet. hold oral agents DVTPPX heparin drip Dispo to inpatient psych pending resolution of medical concerns. Plan discussed with patient in detail, all questions answered.
[2018-09-11 11:55] LABS: URINE APPEARANCE CLEAR; URINE BILIRUBIN NEGATIVE (<2.0 mg/dL); URINE COLOR YELLOW; URINE GLUCOSE (UA) 3+ (NEGATIVE); URINE KETONE 1+ (NEGATIVE); URINE LEUK ESTERASE NEGATIVE (NEGATIVE); URINE NITRITE NEGATIVE (NEGATIVE); URINE PROTEIN NEGATIVE (NEGATIVE); URINE UROBILINOGEN NEGATIVE mg/dL (0.2-1.0)
[2018-09-11] MEDS: INSULIN SLIDING SCALE (NOVOLOG) 1 VIAL SQ SCH ×3 (12:04→22:57)
[2018-09-11 12:28] LABS: COCAINE, UR NEGATIVE ng/ml (CUTOFF=300); METHADONE, UR NEGATIVE ng/ml (CUTOFF=300); OPIATES, URI NEGATIVE ng/ml (CUTOFF=300); PHENCYCLIDINE,URINE NEGATIVE ng/ml (CUTOFF=25); URINE AMPHETAMINES NEGATIVE ng/ml (CUTOFF=500); URINE BARBITURATES NEGATIVE ng/ml (CUTOFF=200); URINE BENZODIAZEPINES NEGATIVE ng/ml (CUTOFF=200)
--- NOTE | 2018-09-11 15:00 | PN ---
Progress Note, Physician History of Present Illness: Pt seen and examined at bedside. She is awake and alert. She denies shortness of breath. She is tolerating diet. She is getting a blood transfusion. - Current Medication List Current Medications: Active Medications Buprenorphine/Naloxone (Suboxone 8mg/2mg Sl Film -) 1 each SL DAILY [facility] Last Admin: 09/11/18 09:38 Dose: Not Given Calcitriol (Rocaltrol -) 0.5 mcg PO DAILY [facility] Last Admin: 09/11/18 09:38 Dose: 0.5 mcg Calcium Carbonate/Cholecalciferol (Os-Willy 500+D -) 2 tab PO BID [facility] Last Admin: 09/11/18 09:37 Dose: 2 tab Heparin Sodium (Porcine) (Heparin -) 5,000 unit IVPUSH PRN PRN PRN Reason: Heparin Last Admin: 09/10/18 18:24 Dose: 5,000 unit Heparin Sodium (Porcine) (Heparin -) 1,000 unit IVPUSH PRN PRN PRN Reason: Heparin Last Admin: 09/09/18 09:24 Dose: 1,000 unit Hydroxyzine Pamoate (Vistaril -) 50 mg PO HS PRN PRN Reason: INSOMNIA Heparin Sodium/Dextrose (Heparin Infusion -) 25,000 units in 500 mls @ 20 mls/ hr IVPB TITR [facility]; Protocol Last Titration: 09/10/18 18:24 Dose: 1,700 units/hr, 34 mls/hr Sodium Chloride (1/2 Normal Saline) 1,000 mls @ 42 mls/hr IV ASDIR [facility] Last Admin: 09/10/18 17:05 Dose: 42 mls/hr Insulin Aspart (Novolog Vial Sliding Scale -) 1 vial SQ ACHS [facility]; Protocol Last Admin: 09/11/18 12:04 Dose: Not Given Pantoprazole Sodium (Protonix Iv) 40 mg IVPUSH BID [facility] Last Admin: 09/11/18 09:38 Dose: 40 mg - Objective Vital Signs: Vital Signs Temperature 99.3 F 09/11/18 14:28 Pulse Rate 105 H 09/11/18 14:28 Respiratory Rate 18 09/11/18 14:28 Blood Pressure 127/57 L 09/11/18 14:28 O2 Sat by Pulse Oximetry (%) 99 09/11/18 09:00 Constitutional: Yes: Calm Eyes: Yes: Conjunctiva Clear HENT: Yes: Atraumatic Cardiovascular: Yes: S1, S2 Respiratory: Yes: CTA Bilaterally Gastrointestinal: Yes: Soft Genitourinary: Yes: WNL Musculoskeletal: Yes: WNL Edema: Yes Edema: LLE: Trace, RLE: Trace Neurological: Yes: Oriented Psychiatric: Yes: Oriented Labs: CBC, BMP 09/11/18 06:45 09/11/18 06:00 INR, PTT INR 1.40 (0.83-1.09) H 09/10/18 09:00 Problem List - Problems (1) ARF (acute renal failure) Code(s): N17.9 - ACUTE KIDNEY FAILURE, UNSPECIFIED Qualifiers: Acute renal failure type: unspecified Qualified Code(s): N17.9 - Acute kidney failure, unspecified (2) Acetaminophen toxicity Code(s): T39.1X1A - POISONING BY 4-AMINOPHENOL DERIVATIVES, ACCIDENTAL, INIT Qualifiers: Encounter type: initial encounter Injury intent: undetermined intent Qualified Code(s): T39.1X4A - Poisoning by 4-Aminophenol derivatives, undetermined, initial encounter (3) Fever Code(s): R50.9 - FEVER, UNSPECIFIED Qualifiers: Fever type: unspecified Qualified Code(s): R50.9 - Fever, unspecified (4) Hyperkalemia Code(s): E87.5 - HYPERKALEMIA (5) Rhabdomyolysis Code(s): M62.82 - RHABDOMYOLYSIS Qualifiers: Rhabdomyolysis type: non-traumatic Qualified Code(s): M62.82 - Rhabdomyolysis Assessment/Plan Current Medications Generic Name Dose Route Start Last Admin Trade Name Silvia PRN Reason Stop Dose Admin Buprenorphine/Naloxone 1 each 09/09/18 10:00 09/11/18 09:38 Suboxone 8mg/2mg Sl Film - SL Not Given DAILY [facility] Calcitriol 0.5 mcg 09/09/18 10:00 09/11/18 09:38 Rocaltrol - PO 0.5 mcg DAILY [facility] Administration Calcium Carbonate/Cholecalciferol 2 tab 09/09/18 10:00 09/11/18 09:37 Os-Willy 500+D - PO 2 tab BID [facility] Administration Heparin Sodium (Porcine) 5,000 unit 09/08/18 16:58 09/10/18 18:24 Heparin - IVPUSH 5,000 unit PRN PRN Administration Heparin Heparin Sodium (Porcine) 1,000 unit 09/08/18 16:58 09/09/18 09:24 Heparin - IVPUSH 1,000 unit PRN PRN Administration Heparin Hydroxyzine Pamoate 50 mg 09/10/18 20:57 Vistaril - PO HS PRN INSOMNIA Heparin Sodium/Dextrose 25,000 units in 500 mls @ 20 mls/hr 09/08/18 23:48 18:24 Heparin Infusion - IVPB 1,700 units/hr TITR [facility] 34 mls/hr Titration Protocol 1,000 UNITS/HR Sodium Chloride 1,000 mls @ 42 mls/hr 09/10/18 15:44 09/10/18 17:05 1/2 Normal Saline IV 42 mls/hr ASDIR [facility] Administration Insulin Aspart 1 vial 09/09/18 07:00 09/11/18 12:04 Novolog Vial Sliding Scale - SQ Not Given ACHS [facility] Protocol Pantoprazole Sodium 40 mg 09/09/18 10:30 09/11/18 09:38 Protonix Iv IVPUSH 40 mg BID [facility] Administration Laboratory Tests 09/08/18 06:45 EFFIE M-Claudio Pending FRANSISCA Screen Negative c-ANCA <1:20 Proteinase 3 (PR3) <3.5 p-ANCA <1:20 Atypical p-ANCA <1:20 Myeloperoxidase Ab <9.0 Double Strand DNA Ab <1 Impression 1. ELLA 2. hyperkalemia 3. drug overdose 4. tylenol toxicity 5. rhabdo 6. opioid dependence 7. microscopic hematuria 8. anemia 9. HTN 10. DM 11. hypocalcemia 12, malnutrition Plan - renal function continues to improve - will stop fluids - monitor renal function - replace phos and monitor labs - will follow PRN - IFX pending
--- NOTE | 2018-09-11 16:16 | PN ---
Physical Exam: SUBJECTIVE: Patient seen and examined at bedside this morning. Patient reported to have called 911 four times overnight. Nurse received phone call from [place] [employer] that patient was claiming that she has been abducted. Night team residents came to see patient as she was trying to leave her bed and leave the hospital. OBJECTIVE: Vital Signs Period Temp Pulse Resp BP Sys/Funes Pulse Ox Last 24 Hr 98.1 F-102.1 F 102-118 18-22 122-141/54-63 95-99 GENERAL: The patient is awake, alert, and oriented, in no acute distress. HEAD: Normal with no signs of trauma. EYES: PERRLA, EOMI, sclera anicteric, conjunctiva clear. NECK: Trachea midline, full range of motion, supple. LUNGS: Breath sounds equal, clear to auscultation bilaterally. HEART: Regular rate and rhythm, S1, S2 without murmur, rub or gallop. ABDOMEN: soft, +LLQ/RLQ tenderness, nondistended, NABS, no guarding. EXTREMITIES: 2+ pulses, warm, well-perfused, no edema. SKIN: Warm, dry, normal turgor, no rashes or lesions noted Laboratory Results - last 24 hr 09/08/18 09/10/18 09/10/18 06:45 08:20 16:30 WBC RBC Hgb Hct MCV MCH MCHC RDW Plt Count MPV Absolute Neuts (auto) Neutrophils % Lymphocytes % Monocytes % Eosinophils % Basophils % Nucleated RBC % PTT (Actin FS) 27.2 Sodium Potassium Chloride Carbon Dioxide Anion Gap BUN Creatinine Creat Clearance w eGFR POC Glucometer Random Glucose Calcium Phosphorus Magnesium Total Bilirubin AST ALT Alkaline Phosphatase Total Protein Albumin Urine Color Urine Appearance Urine pH Ur Specific [place] Urine Protein Urine Glucose (UA) Urine Ketones Urine Blood Urine Nitrite Urine Bilirubin Urine Urobilinogen Ur Leukocyte Esterase Opiates Screen Methadone Screen Barbiturate Screen Phencyclidine Screen Ur Amphetamines Screen MDMA (Ecstasy) Screen Benzodiazepines Screen Cocaine Screen U Marijuana (THC) Screen c-ANCA <1:20 Proteinase 3 (PR3) <3.5 p-ANCA <1:20 Atypical p-ANCA <1:20 Myeloperoxidase Ab <9.0 Blood Type O POSITIVE Antibody Screen Positive H Antibody Identification Anti-K Crossmatch See Detail 10/11/18 10/11/18 10/12/18 17:07 23:38 06:00 WBC RBC Hgb Hct MCV MCH MCHC RDW Plt Count MPV Absolute Neuts (auto) Neutrophils % Lymphocytes % Monocytes % Eosinophils % Basophils % Nucleated RBC % PTT (Actin FS) Sodium 136 Potassium 4.3 Chloride 109 H Carbon Dioxide 14 L Anion Gap 13 BUN 34 H Creatinine 0.7 Creat Clearance w eGFR > 60 POC Glucometer 168 147 Random Glucose 196 H Calcium 7.5 L Phosphorus 2.3 L Magnesium 1.9 Total Bilirubin 0.4 AST 21 ALT 47 Alkaline Phosphatase 60 Total Protein 4.4 L Albumin 1.5 L Urine Color Urine Appearance Urine pH Ur Specific [place] Urine Protein Urine Glucose (UA) Urine Ketones Urine Blood Urine Nitrite Urine Bilirubin Urine Urobilinogen Ur Leukocyte Esterase Opiates Screen Methadone Screen Barbiturate Screen Phencyclidine Screen Ur Amphetamines Screen MDMA (Ecstasy) Screen Benzodiazepines Screen Cocaine Screen U Marijuana (THC) Screen c-ANCA Proteinase 3 (PR3) p-ANCA Atypical p-ANCA Myeloperoxidase Ab Blood Type Antibody Screen Antibody Identification Crossmatch 09/11/18 09/11/18 09/11/18 06:45 06:45 10:50 WBC 14.9 H RBC 2.96 L Hgb 7.1 L Hct 23.5 L MCV 79.4 L MCH 24.1 L MCHC 30.3 L RDW 16.9 H Plt Count 248 MPV 7.5 Absolute Neuts (auto) 12.3 H Neutrophils % 82.2 Lymphocytes % 9.5 Monocytes % 7.8 Eosinophils % 0.4 Basophils % 0.1 Nucleated RBC % 0 PTT (Actin FS) 26.4 Sodium Potassium Chloride Carbon Dioxide Anion Gap BUN Creatinine Creat Clearance w eGFR POC Glucometer Random Glucose Calcium Phosphorus Magnesium Total Bilirubin AST ALT Alkaline Phosphatase Total Protein Albumin Urine Color Urine Appearance Urine pH Ur Specific [place] Urine Protein Urine Glucose (UA) Urine Ketones Urine Blood Urine Nitrite Urine Bilirubin Urine Urobilinogen Ur Leukocyte Esterase Opiates Screen Negative Methadone Screen Negative Barbiturate Screen Negative Phencyclidine Screen Negative Ur Amphetamines Screen Negative MDMA (Ecstasy) Screen Negative Benzodiazepines Screen Negative Cocaine Screen Negative U Marijuana (THC) Screen Negative c-ANCA Proteinase 3 (PR3) p-ANCA Atypical p-ANCA Myeloperoxidase Ab Blood Type Antibody Screen Antibody Identification Crossmatch 09/11/18 09/11/18 10:57 11:31 WBC RBC Hgb Hct MCV MCH MCHC RDW Plt Count MPV Absolute Neuts (auto) Neutrophils % Lymphocytes % Monocytes % Eosinophils % Basophils % Nucleated RBC % PTT (Actin FS) Sodium Potassium Chloride Carbon Dioxide Anion Gap BUN Creatinine Creat Clearance w eGFR POC Glucometer 257 Random Glucose Calcium Phosphorus Magnesium Total Bilirubin AST ALT Alkaline Phosphatase Total Protein Albumin Urine Color Yellow Urine Appearance Clear Urine pH 5.0 Ur Specific [place] 1.011 Urine Protein Negative Urine Glucose (UA) 3+ H Urine Ketones 1+ H Urine Blood Negative Urine Nitrite Negative Urine Bilirubin Negative Urine Urobilinogen Negative Ur Leukocyte Esterase Negative Opiates Screen Methadone Screen Barbiturate Screen Phencyclidine Screen Ur Amphetamines Screen MDMA (Ecstasy) Screen Benzodiazepines Screen Cocaine Screen U Marijuana (THC) Screen c-ANCA Proteinase 3 (PR3) p-ANCA Atypical p-ANCA Myeloperoxidase Ab Blood Type Antibody Screen Antibody Identification Crossmatch Active Medications Generic Name Dose Route Start Last Admin Trade Name Freq PRN Reason Stop Dose Admin Buprenorphine/Naloxone 1 each 09/09/18 10:00 09/11/18 09:38 Suboxone 8mg/2mg Sl Film - SL Not Given DAILY [facility] Calcitriol 0.5 mcg 09/09/18 10:00 09/11/18 09:38 Rocaltrol - PO 0.5 mcg DAILY [facility] Administration Calcium Carbonate/Cholecalciferol 2 tab 09/09/18 10:00 09/11/18 09:37 Os-Willy 500+D - PO 2 tab BID [facility] Administration Heparin Sodium (Porcine) 5,000 unit 09/08/18 16:58 09/10/18 18:24 Heparin - IVPUSH 5,000 unit PRN PRN Administration Heparin Heparin Sodium (Porcine) 1,000 unit 09/08/18 16:58 09/09/18 09:24 Heparin - IVPUSH 1,000 unit PRN PRN Administration Heparin Hydroxyzine Pamoate 50 mg 09/10/18 20:57 Vistaril - PO HS PRN INSOMNIA Heparin Sodium/Dextrose 25,000 units in 500 mls @ 20 mls/hr 09/08/18 23:48 18:24 Heparin Infusion - IVPB 1,700 units/hr TITR [facility] 34 mls/hr Titration Protocol 1,000 UNITS/HR Sodium Chloride 1,000 mls @ 42 mls/hr 09/10/18 15:44 09/10/18 17:05 1/2 Normal Saline IV 42 mls/hr ASDIR [facility] Administration Insulin Aspart 1 vial 09/09/18 07:00 09/11/18 12:04 Novolog Vial Sliding Scale - SQ Not Given ACHS [facility] Protocol Pantoprazole Sodium 40 mg 09/09/18 10:30 09/11/18 09:38 Protonix Iv IVPUSH 40 mg BID [facility] Administration ASSESSMENT/PLAN: Patient is a 58 year old female with a significant past medical history of opiate abuse, HTN, IDDM, s/p gastric bypass, recurrent anemia, gastric ulcer, possible ischemic colitis, chronic diarrhea, DVT on Eliquis who was BIBA due to altered mental status and poor PO intake. #Altered mental status: resolved -likely 2/2 Uremia 2/2 Acetaminophen toxicity -Patient reportedly took 80 tablets of percocet in the last 5 days. It is unknown if patient took it at the same time or was distributed over 5 days or last intake. -Acetaminophen level low -Urine toxicology: +opiates -Repeat urine toxicology today : negative #Transaminitis 2/2 Acetominophen toxicity: resolved -AST/ALT on admission: 421/266; today #ELLA/Rhabdomyolysis -BUN/CR 137/4.8 on admission, 34/0.7 today -CK wnl -IVF discontinued -Bladder scan today >300cc, straight cath ordered. -Encouraged patient to ambulate. -Nephrology (Dr. Calderón) consulted. Recommendations appreciated: - d/c fluids. - d/c mcdonald. - renal function is improving - likely severe prerenal disease causing ATN #New onset fevers -No fevers today. Last episode 10pm last night. -External cooling. -UA negative, CXR negative -Blood cx, urine cx pending -may be likely 2/2 opioid withdrawal -will monitor #Opioid abuse -patient refused to take Suboxone today. -Will order stool cx, c.diff, and wbc - negative -Dr. Rich consulted. Recommendations appreciated: -Pt is probably not a candidate to resume percocets. -Suboxone- will start 2mg today and increase to 8mg tomorrow and may increase to BID if needed and tolerated. -Please call [facility]- [phone], for an initial appt for Suboxone treatment- pt is agreeable for this Rx. #Hx of DVT -On eliquis, put on hold due to renal function -On Heparin drip -Will transition back to Eliquis when renal function normalizes #?Suicide risk -1:1 observation -Psychiatrist (Dr. Watts) consulted. Case referred to [facility]. -Recommendations appreciated: -will recommend find a bed in psychiatry. -Has [employer] [facility] lead case manager Dipesh at [phone] -Major Depression with suicidal ideation. -Client preference is admit [facility]. -Offered SSRI at present, but refused. -May give Visatril 50mg for sleep. #Acute on Chronic Normocytic anemia -Hgb 7.1 today. -Transfused 1unit pRBC -FOBT +,refused NIKITA -GI (Dr. Sanon) consulted. Recommendations appreciated. -CT scan of abdomen with contrast. -will monitor H/H #Hyperkalemia: resolved -6.3 on admission -Received Calcium Gluconate, Insulin +D5W, Albuterol, and Sodium Bicarb -repeat K 4.6 -will continue to monitor #DM -Insulin Sliding Scale -BGM ACHS #FEN -not on any standing fluids. -hypophos, hypoMg, replete as necessary -routine cmp monitoring -diabetic diet #Prophylaxis -patient was on eliquis. Held due to ARF -Heparin drip #Disposition -transfer to tele Visit type - Emergency Visit Emergency Visit: Yes ED Registration Date: 09/06/18 Care time: The patient presented to the Emergency Department on the above date and was hospitalized for further evaluation of their emergent condition. - New Patient This patient is new to me today: Yes Date on this admission: 09/11/18 - Critical Care Critical Care patient: No
[2018-09-11] MEDS ORDERED: HEPARIN NA (PORCINE) 5,000 UNITS/ML 1ML VIAL IVPUSH PRN ×2 (17:39)
--- NOTE | 2018-09-11 21:41 | PN ---
Progress Note (short form) - Note Progress Note: PATIENT IS 58 YO FEMALE WITH NO PAST PSYCH HISTORY TO TOOK MULTIPLE EXTRA OXYCODONE TABS THAT SHE IS PRESCRIBED FOR SHOLDER PAIN. Client has a history of being followed at [facility] out -patient in [place]. Stopped attending after her therapist left. REPORT BY CHET hooker THAT SHE IS PASSIVE ON UNIT, SAD AFFECT , ONLY TALKS WHEN SPOKEN TO, NOW ON 1;1, HAS NOT WALKED YET. cLIENT IS selective HISTORIAN, BUT has a PSYCHIATRIC HISTORY, NOW ON SUBOXONE DURING OPIATE WITHDRAWAL.Was on klonopin in past. cLIENT IS ALERT BUT DISORIENTATED BY 2, DOES NOT KNOW DATE, HOLIDAY OR HOSPITAL. Cognitively is clear today. nO AGITATION, DENIES SUICIDAL OR HOMICIDAL IDEATION. NO PSYCHOSIS,endorsed DEPRESSION, 09/09 ANXIETY . will recommend find a bed in psychiatry. has cluster [facility] [employer]OP[employer] SITE MANAGER ISREAL AT [phone] MAJOR DEPRESSION WITH SUICIDAL IDEATION. CLIENT PREFERENCE IS ADMIT [facility]. OFFERED SSRI AT PRESENT, BUT REFUSED. SEEN PATIENT THIS AFTERNOON, ANXIOUS, GETTING OUT OF BED "I WANT TO GO HOME". HAS A FEVER AND INCREASED PULSE RATE.. IN WITHRAWL POSSIBLY FROM OPIATES. MAY USE VISTARIL 50MG FOR SLEEP. SPOKE WITH rn WHO IA FOLLOWING WILL CALL FLOOR MD TO RELAY CURRENT STATUS. 09/11/18 re consulted on patient today. She is less resistance to care today. She was upset with bond writer, asked me to leave the room, after some verbal abuse. Nonethe less, she is willing to seek inpatient psych bed when medically cleared. Problem List - Problems (1) Memory loss or impairment Code(s): R41.3 - OTHER AMNESIA (2) Depression, major, severe recurrence Code(s): F33.2 - MAJOR DEPRESSV DISORDER, RECURRENT SEVERE W/O PSYCH FEATURES
[2018-09-11] MEDS ORDERED: SODIUM CHLORIDE 1,000 ML IV SCH ×2 (23:30→23:36)
[2018-09-11] MEDS ORDERED: PIPERACILLIN/TAZOB 4.5 GM 4.5 GM in DEXTROSE 5%-WATER 100 ML IVPB SCH (23:45)
[2018-09-12] MEDS: hydrOXYzine PAMOATE 50 MG CAPSULE (FP) PO PRN ×2 (00:04→21:35)
[2018-09-12] MEDS ORDERED: PT OWN MED DRAWER 7, Y5N ONE ×3 (00:04→21:35)
[2018-09-12] MEDS: CALCIUM 500MG/VIT-D 200 UNITS COMBO TABLET (FP) PO SCH ×3 (00:05→21:18)
[2018-09-12] MEDS ORDERED: PIPERACILLIN/TAZOBACTAM 4.5 GM VIAL IVPB ONE ×3 (00:09→17:14)
[2018-09-12] MEDS ORDERED: DEXTROSE 5%-WATER 100 ML IVPB ONE ×3 (00:10→17:14)
[2018-09-12] MEDS: PIPERACILLIN/TAZOB 4.5 GM 4.5 GM in DEXTROSE 5%-WATER 100 ML IVPB SCH ×5 (00:20→19:57)
--- NOTE | 2018-09-12 02:12 | HOSP ---
Subjective - Review of Symptoms Events since last encounter: Patient resting comfortably in bed. Receiving blood transfusion. On one-to-one monitoring. Physical Examination Vital Signs: Vital Signs Temperature 98.9 F 09/11/18 21:03 Pulse Rate 112 H 09/11/18 21:03 Respiratory Rate 20 09/11/18 21:03 Blood Pressure 138/48 L 09/11/18 21:03 O2 Sat by Pulse Oximetry (%) 99 09/11/18 22:00 Labs: CBC, BMP 09/11/18 06:45 09/11/18 06:00 Hospitalist Encounter Assessment: Received page from Dr. Good regarding CT results concerning for pneumoperitoneum. Discussed starting patient on antibiotics, and consulting surgery. Discussed with Dr. Muro, and reviewed CT scan. Zosyn 4.5grams started STAT, IV normal saline at 100mL/hour, patient placed NPO except for medications. ID consulted onto the case. Discussed with Dr. Saini that if there is potential for bleeding, and patient may be for surgical procedure tomorrow, will hold heparin drip until surgical evaluation. Plans discussed with nursing staff. Visit type - Emergency Visit Emergency Visit: Yes ED Registration Date: 09/06/18 Care time: The patient presented to the Emergency Department on the above date and was hospitalized for further evaluation of their emergent condition. - New Patient This patient is new to me today: Yes Date on this admission: 09/12/18 - Critical Care Critical Care patient: No
[2018-09-12] MEDS: INSULIN SLIDING SCALE (NOVOLOG) 1 VIAL SQ SCH ×5 (07:07→21:18)
--- NOTE | 2018-09-12 08:25 | PN ---
Progress Note, Physician Chief Complaint: Covering for Dr. Bolanos Pt states she has some intermittent back pain and her abdominal pain is the same - it has not worsened or improved. - Current Medication List Current Medications: Active Medications Buprenorphine/Naloxone (Suboxone 8mg/2mg Sl Film -) 1 each SL DAILY [facility] Last Admin: 09/11/18 09:38 Dose: Not Given Calcitriol (Rocaltrol -) 0.5 mcg PO DAILY [facility] Last Admin: 09/11/18 09:38 Dose: 0.5 mcg Calcium Carbonate/Cholecalciferol (Os-Willy 500+D -) 2 tab PO BID [facility] Last Admin: 09/12/18 00:05 Dose: 2 tab Heparin Sodium (Porcine) (Heparin -) 1,000 unit IVPUSH PRN PRN PRN Reason: Heparin Heparin Sodium (Porcine) (Heparin -) 5,000 unit IVPUSH PRN PRN PRN Reason: Heparin Hydroxyzine Pamoate (Vistaril -) 50 mg PO HS PRN PRN Reason: INSOMNIA Last Admin: 09/12/18 00:04 Dose: 50 mg Heparin Sodium (Porcine) 25, (000 unit/ Sodium Chloride) 500 mls @ 20 mls/hr IV TITR [facility]; Protocol Piperacillin Sod/Tazobactam (Sod 4.5 gm/ Dextrose) 100 mls @ 200 mls/hr IVPB Q8H-IV [facility]; Protocol Sodium Chloride (Normal Saline -) 1,000 mls @ 100 mls/hr IV ASDIR [facility] Last Admin: 09/12/18 00:19 Dose: 100 mls/hr Insulin Aspart (Novolog Vial Sliding Scale -) 1 vial SQ ACHS [facility]; Protocol Last Admin: 09/12/18 07:07 Dose: Not Given Pantoprazole Sodium (Protonix Iv) 40 mg IVPUSH BID [facility] Last Admin: 09/11/18 22:58 Dose: 40 mg Potassium Phos/Sodium Phos (Phos-Nak Packet -) 1 packet PO DAILY [facility] Stop: 09/15/18 09:59 Sodium Bicarbonate (Sodium Bicarbonate -) 325 mg PO DAILY [facility] - Objective Vital Signs: Vital Signs Temperature 98.9 F 09/11/18 21:03 Pulse Rate 112 H 09/11/18 21:03 Respiratory Rate 20 09/11/18 21:03 Blood Pressure 138/48 L 09/11/18 21:03 O2 Sat by Pulse Oximetry (%) 99 09/11/18 22:00 Constitutional: Yes: Well Nourished, No Distress, Calm Eyes: Yes: WNL HENT: Yes: WNL Neck: Yes: WNL Cardiovascular: Yes: WNL, Regular Rate and Rhythm Respiratory: Yes: WNL, Regular, CTA Bilaterally Gastrointestinal: Yes: Other (tender to deep palpation lower quadrants , no rebound or guarding , bowel sounds nml) Musculoskeletal: Yes: WNL Extremities: Yes: WNL Edema: No Labs: CBC, BMP 09/11/18 06:45 09/11/18 06:00 INR, PTT INR 1.40 (0.83-1.09) H 09/10/18 09:00 Problem List - Problems (1) Abdominal pain Assessment/Plan: repeat CT scan with findings consistent with a small area pneumoperitoneum / free fluid . REC: - c/w zosyn - NPO / IVF's - await surgery evaluation Code(s): R10.9 - UNSPECIFIED ABDOMINAL PAIN (2) Fever Code(s): R50.9 - FEVER, UNSPECIFIED Qualifiers: Fever type: unspecified Qualified Code(s): R50.9 - Fever, unspecified
[2018-09-12 09:16] LABS: BASO % 0.2 % (0-2.0); HEMATOCRIT 29.3 % (32.4-45.2); HEMOGLOBIN 9.3 GM/dL (10.7-15.3); LYMPH % 11.1 % (8-40); MCH 25.5 pg (25.7-33.7); MCHC 31.7 g/dl (32.0-36.0); MEAN CELL VOLUME 80.5 fl (80-96); MEAN PLT VOLUME 7.4 fl (7.5-11.1); MONO % 9.5 % (3.8-10.2); NEUT % 77.2 % (42.8-82.8); PLATELET COUNT 257 K/MM3 (134-434); RBC 3.64 M/mm3 (3.60-5.2); RDW 16.8 % (11.6-15.6); WHITE BLOOD COUNT 11.5 K/mm3 (4.0-10.0)
--- NOTE | 2018-09-12 09:21 | PN ---
Teaching Attending Note Name of Resident: Odette Garcia ATTENDING PHYSICIAN STATEMENT I saw and evaluated the patient. I reviewed the resident's note and discussed the case with the resident. I agree with the resident's findings and plan as documented with exceptions below. SUBJECTIVE: Patient seen and examined, asking for something to drink, otherwise no complaints. OBJECTIVE: Vital Signs Period Temp Pulse Resp BP Sys/Funes Pulse Ox Last 24 Hr 98.2 F-99.3 F 99-112 18-20 109-138/48-73 99 Intake & Output 09/09/18 09/10/18 09/11/18 09/12/18 23:59 23:59 23:59 23:59 Intake Total 2128.5 1321 854 700 Output Total 1300 1952 650 750 Balance 828.5 -631 204 -50 General: sitting in bed in no acute distress Chest: CTAB, no rales or wheezing Abdomen:soft, obese, mild generalized tenderness, more in LLQ, no voluntary or involuntary guarding or rigidity, positive bowel sounds. Extremities: almost resolved left hand edema Active Medications Buprenorphine/Naloxone (Suboxone 8mg/2mg Sl Film -) 1 each SL DAILY [facility] Last Admin: 09/11/18 09:38 Dose: Not Given Calcitriol (Rocaltrol -) 0.5 mcg PO DAILY [facility] Last Admin: 09/11/18 09:38 Dose: 0.5 mcg Calcium Carbonate/Cholecalciferol (Os-Willy 500+D -) 2 tab PO BID [facility] Last Admin: 09/12/18 00:05 Dose: 2 tab Heparin Sodium (Porcine) (Heparin -) 1,000 unit IVPUSH PRN PRN PRN Reason: Heparin Heparin Sodium (Porcine) (Heparin -) 5,000 unit IVPUSH PRN PRN PRN Reason: Heparin Hydroxyzine Pamoate (Vistaril -) 50 mg PO HS PRN PRN Reason: INSOMNIA Last Admin: 09/12/18 00:04 Dose: 50 mg Heparin Sodium (Porcine) 25, (000 unit/ Sodium Chloride) 500 mls @ 20 mls/hr IV TITR [facility]; Protocol Piperacillin Sod/Tazobactam (Sod 4.5 gm/ Dextrose) 100 mls @ 200 mls/hr IVPB Q8H-IV [facility]; Protocol Sodium Chloride (Normal Saline -) 1,000 mls @ 100 mls/hr IV ASDIR [facility] Last Admin: 09/12/18 00:19 Dose: 100 mls/hr Insulin Aspart (Novolog Vial Sliding Scale -) 1 vial SQ ACHS [facility]; Protocol Last Admin: 09/12/18 07:07 Dose: Not Given Pantoprazole Sodium (Protonix Iv) 40 mg IVPUSH BID [facility] Last Admin: 09/11/18 22:58 Dose: 40 mg Potassium Phos/Sodium Phos (Phos-Nak Packet -) 1 packet PO DAILY [facility] Stop: 09/15/18 09:59 Sodium Bicarbonate (Sodium Bicarbonate -) 325 mg PO DAILY [facility] Laboratory Results - last 24 hr 09/06/18 09/08/18 09/10/18 22:28 06:45 08:20 WBC RBC Hgb Hct MCV MCH MCHC RDW Plt Count MPV Absolute Neuts (auto) Neutrophils % Lymphocytes % Monocytes % Eosinophils % Basophils % Nucleated RBC % POC Glucometer Total Protein (PEP) 4.1 L Albumin (PEP) 1.7 L Globulin 2.4 Albumin/Globulin Ratio 0.7 Beta Globulins 0.6 L Urine Color Urine Appearance Urine pH Ur Specific [place] Urine Protein Urine Glucose (UA) Urine Ketones Urine Blood Urine Nitrite Urine Bilirubin Urine Urobilinogen Ur Leukocyte Esterase Opiates Screen Methadone Screen Barbiturate Screen Phencyclidine Screen Ur Amphetamines Screen MDMA (Ecstasy) Screen Benzodiazepines Screen Cocaine Screen U Marijuana (THC) Screen EFFIE M-Claudio HSV I DNA Quant (PCR) Negative HSV II DNA Quant (PCR) Negative Blood Type O POSITIVE Antibody Screen Positive H Antibody Identification Anti-K Crossmatch See Detail 09/11/18 09/11/18 09/11/18 10:50 10:57 11:31 WBC RBC Hgb Hct MCV MCH MCHC RDW Plt Count MPV Absolute Neuts (auto) Neutrophils % Lymphocytes % Monocytes % Eosinophils % Basophils % Nucleated RBC % POC Glucometer 257 Total Protein (PEP) Albumin (PEP) Globulin Albumin/Globulin Ratio Beta Globulins Urine Color Yellow Urine Appearance Clear Urine pH 5.0 Ur Specific [place] 1.011 Urine Protein Negative Urine Glucose (UA) 3+ H Urine Ketones 1+ H Urine Blood Negative Urine Nitrite Negative Urine Bilirubin Negative Urine Urobilinogen Negative Ur Leukocyte Esterase Negative Opiates Screen Negative Methadone Screen Negative Barbiturate Screen Negative Phencyclidine Screen Negative Ur Amphetamines Screen Negative MDMA (Ecstasy) Screen Negative Benzodiazepines Screen Negative Cocaine Screen Negative U Marijuana (THC) Screen Negative EFFIE M-Claudio HSV I DNA Quant (PCR) HSV II DNA Quant (PCR) Blood Type Antibody Screen Antibody Identification Crossmatch 09/11/18 09/11/18 09/12/18 17:00 22:55 07:05 WBC RBC Hgb Hct MCV MCH MCHC RDW Plt Count MPV Absolute Neuts (auto) Neutrophils % Lymphocytes % Monocytes % Eosinophils % Basophils % Nucleated RBC % POC Glucometer 195 207 165 Total Protein (PEP) Albumin (PEP) Globulin Albumin/Globulin Ratio Beta Globulins Urine Color Urine Appearance Urine pH Ur Specific [place] Urine Protein Urine Glucose (UA) Urine Ketones Urine Blood Urine Nitrite Urine Bilirubin Urine Urobilinogen Ur Leukocyte Esterase Opiates Screen Methadone Screen Barbiturate Screen Phencyclidine Screen Ur Amphetamines Screen MDMA (Ecstasy) Screen Benzodiazepines Screen Cocaine Screen U Marijuana (THC) Screen EFFIE M-Claudio HSV I DNA Quant (PCR) HSV II DNA Quant (PCR) Blood Type Antibody Screen Antibody Identification Crossmatch 09/12/18 08:39 WBC 11.5 H RBC 3.64 Hgb 9.3 L Hct 29.3 L D MCV 80.5 MCH 25.5 L MCHC 31.7 L RDW 16.8 H Plt Count 257 MPV 7.4 L Absolute Neuts (auto) 8.9 H Neutrophils % 77.2 Lymphocytes % 11.1 Monocytes % 9.5 Eosinophils % 2.0 D Basophils % 0.2 Nucleated RBC % 0 POC Glucometer Total Protein (PEP) Albumin (PEP) Globulin Albumin/Globulin Ratio Beta Globulins Urine Color Urine Appearance Urine pH Ur Specific [place] Urine Protein Urine Glucose (UA) Urine Ketones Urine Blood Urine Nitrite Urine Bilirubin Urine Urobilinogen Ur Leukocyte Esterase Opiates Screen Methadone Screen Barbiturate Screen Phencyclidine Screen Ur Amphetamines Screen MDMA (Ecstasy) Screen Benzodiazepines Screen Cocaine Screen U Marijuana (THC) Screen EFFIE M-Claudio HSV I DNA Quant (PCR) HSV II DNA Quant (PCR) Blood Type Antibody Screen Antibody Identification Crossmatch Microbiology 09/06/18 17:22 Blood - Peripheral Venous Blood Culture - Final NO GROWTH AFTER 5 DAYS INCUBATION 09/06/18 17:22 Blood - Peripheral Venous Blood Culture - Final NO GROWTH AFTER 5 DAYS INCUBATION 09/09/18 18:30 Stool Gram Stain - Final 09/09/18 18:30 Stool Clostridium difficile Antigen (MISTI) - Final 09/09/18 18:30 Stool Clostridium difficile Toxin Assay - Final 09/06/18 23:57 Cerebral Spinal Fluid - Lumbar Puncture Gram Stain - Final 09/06/18 23:57 Cerebral Spinal Fluid - Lumbar Puncture CSF Culture - Final 09/06/18 16:04 Urine - Urine La Urine Culture - Final NO GROWTH OBTAINED 09/06/18 22:28 Cerebral Spinal Fluid - Lumbar Puncture Streptococcus pneumoniae Antigen (M - Final ASSESSMENT AND PLAN: 58 yo F with PMHx of Gastric bypass (?2004), recurrent anemia, prior EGD/ colonoscopy in 05/2018 showing gastric ulcers at anastomotic site/Possible ischemic colitis, recent RLE DVT on eliquis, IDDM, HTN, chronic diarrhea, opioid dependence, brought to the ER with lethargy and anorexia. was recently prescribed percocet by per crayon painter. She was prescribed 90 pills and there was only 10 remaining after 4 days -?Sigmoid microperforation in the setting of acute sigmoid diverticulitis vs colonic distension from prolonged opioid use -Suspected Intentional percocet Overdose (denies SI or suicidal attempt, reports for pain control) -ELLA, multifactorial from dehydration/rhabdomyolysis/acidosis -Anion gap metabolic acidosis -Rhabdomyolysis -Tachycardia -Acute toxic metabolic encephalopathy, multifactorial from above -Acute LUE cephalic vein thrombosis, limited visualization of remaining veins -Transaminitis, resolving -Diarrhea, from sigmoid diverticulitis vs ?opioid withdrawal, C difficile ruled out -Acute on chronic Normocytic anemia -Hyperkalemia -Hypophosphatemia -NIDDM -h/o gastric bypass -h/o DVT on eliquis -H/o gastric ulcers/ischemic colitis -HTN -Opioid dependence -Fever Plan: CT A/P noted, overnight events noted. Zosyn day 1. surgery/ID/GI input. NPO, IVF, follow up blood cx. Stool C difficile neg. Serial abdominal exam. s/p 1 unit PRBC on 09/11, appropriate response, monitor for now. Protonix IV BID FOBT pos. Extensive known h/o recurrent anemia requiring transfusions, also with EGD in 2017 with ulceration at anastomotic site, Colonscopy in 08/2018 with possible ischemic colitis. Heparin drip on hold pending surgery input. Tylenol level/LFTs/Coags improved, Off NAC drip. Intermittent concerns for AMS, erratic behavior, known prior history. Psych input noted. For inpatient psych once improved. Repeat drug screen noted. ELLA resolved. Renal input noted. CPK improved. K normalized. Replete phos Psych input noted. Plan for inpatient psych once medial issues resolve. Detox input noted, not a candidate for percocet, Continue suboxone. ISS, diabetic diet. hold oral agents DVTPPX heparin drip Dispo to inpatient psych pending resolution of medical concerns. Plan discussed with patient in detail, all questions answered.
[2018-09-12 09:22] LABS: INR 1.5 (0.83-1.09); PROTHROMBIN TIME (PATIENT) 17.8 SEC (9.7-13.0)
[2018-09-12 09:25] LABS: ACTIVATED PTT 26.8 SECONDS (25.2-36.5)
[2018-09-12 09:46] LABS: ALBUMIN 1.4 g/dl (3.4-5.0); ALK PHOS 60 U/L (45-117); ANION GAP 10 MMOL/L (8-16); BILIRUBIN,TOTAL 0.5 mg/dL (0.2-1); BLOOD UREA NITROGEN 22 mg/dL (7-18); CALCIUM 7.4 mg/dL (8.5-10.1); CHLORIDE 110 mmol/L (98-107); CO2 18 mmol/L (21-32); CREATININE 0.6 mg/dL (0.55-1.3); GLUCOSE,RANDOM 182 mg/dL (74-106); MAGNESIUM 1.5 mg/dL (1.8-2.4); PHOSPHOROUS 2.4 mg/dL (2.5-4.9); SGOT/AST 17 U/L (15-37); SGPT/ALT 35 U/L (13-61); SODIUM 139 mmol/L (136-145); TOT PROT 4.2 g/dl (6.4-8.2)
--- NOTE | 2018-09-12 09:47 | PN ---
Physical Exam: SUBJECTIVE: Patient seen and examined at bedside this morning. Patient is in a pleasant mood today. Overnight, CT of abdomen and pelvis done showed pneumoperitoneum. Resident vector control assistant discussed with GI and Surgery CT results. Zosyn 4.5 g started and IV NS at 100ml/hr. Patient placed on NPO except meds. Heparin drip held pending surgical evaluation. OBJECTIVE: Vital Signs Period Temp Pulse Resp BP Sys/Funes Pulse Ox Last 24 Hr 98.2 F-99.3 F 99-112 18-20 109-138/48-73 99 GENERAL: The patient is awake, alert, and oriented, in no acute distress. HEAD: Normal with no signs of trauma. EYES: PERRLA, EOMI, sclera anicteric, conjunctiva clear. NECK: Trachea midline, full range of motion, supple. LUNGS: Breath sounds equal, clear to auscultation bilaterally. HEART: Regular rate and rhythm, S1, S2 without murmur, rub or gallop. ABDOMEN: soft, +LLQ>RLQ tenderness, nondistended, NABS, no guarding. EXTREMITIES: 2+ pulses, warm, well-perfused, no edema. SKIN: Warm, dry, normal turgor, no rashes or lesions noted Laboratory Results - last 24 hr 09/06/18 09/08/18 09/10/18 22:28 06:45 08:20 WBC RBC Hgb Hct MCV MCH MCHC RDW Plt Count MPV Absolute Neuts (auto) Neutrophils % Lymphocytes % Monocytes % Eosinophils % Basophils % Nucleated RBC % PT with INR INR PTT (Actin FS) POC Glucometer Total Protein (PEP) 4.1 L Albumin (PEP) 1.7 L Globulin 2.4 Albumin/Globulin Ratio 0.7 Beta Globulins 0.6 L Urine Color Urine Appearance Urine pH Ur Specific [place] Urine Protein Urine Glucose (UA) Urine Ketones Urine Blood Urine Nitrite Urine Bilirubin Urine Urobilinogen Ur Leukocyte Esterase Opiates Screen Methadone Screen Barbiturate Screen Phencyclidine Screen Ur Amphetamines Screen MDMA (Ecstasy) Screen Benzodiazepines Screen Cocaine Screen U Marijuana (THC) Screen EFFIE M-Claudio HSV I DNA Quant (PCR) Negative HSV II DNA Quant (PCR) Negative Blood Type O POSITIVE Antibody Screen Positive H Antibody Identification Anti-K Crossmatch See Detail 09/11/18 09/11/18 09/11/18 10:50 10:57 11:31 WBC RBC Hgb Hct MCV MCH MCHC RDW Plt Count MPV Absolute Neuts (auto) Neutrophils % Lymphocytes % Monocytes % Eosinophils % Basophils % Nucleated RBC % PT with INR INR PTT (Actin FS) POC Glucometer 257 Total Protein (PEP) Albumin (PEP) Globulin Albumin/Globulin Ratio Beta Globulins Urine Color Yellow Urine Appearance Clear Urine pH 5.0 Ur Specific [place] 1.011 Urine Protein Negative Urine Glucose (UA) 3+ H Urine Ketones 1+ H Urine Blood Negative Urine Nitrite Negative Urine Bilirubin Negative Urine Urobilinogen Negative Ur Leukocyte Esterase Negative Opiates Screen Negative Methadone Screen Negative Barbiturate Screen Negative Phencyclidine Screen Negative Ur Amphetamines Screen Negative MDMA (Ecstasy) Screen Negative Benzodiazepines Screen Negative Cocaine Screen Negative U Marijuana (THC) Screen Negative EFFIE M-Claudio HSV I DNA Quant (PCR) HSV II DNA Quant (PCR) Blood Type Antibody Screen Antibody Identification Crossmatch 09/11/18 09/11/18 09/12/18 17:00 22:55 07:05 WBC RBC Hgb Hct MCV MCH MCHC RDW Plt Count MPV Absolute Neuts (auto) Neutrophils % Lymphocytes % Monocytes % Eosinophils % Basophils % Nucleated RBC % PT with INR INR PTT (Actin FS) POC Glucometer 195 207 165 Total Protein (PEP) Albumin (PEP) Globulin Albumin/Globulin Ratio Beta Globulins Urine Color Urine Appearance Urine pH Ur Specific [place] Urine Protein Urine Glucose (UA) Urine Ketones Urine Blood Urine Nitrite Urine Bilirubin Urine Urobilinogen Ur Leukocyte Esterase Opiates Screen Methadone Screen Barbiturate Screen Phencyclidine Screen Ur Amphetamines Screen MDMA (Ecstasy) Screen Benzodiazepines Screen Cocaine Screen U Marijuana (THC) Screen EFFIE M-Claudio HSV I DNA Quant (PCR) HSV II DNA Quant (PCR) Blood Type Antibody Screen Antibody Identification Crossmatch 09/12/18 09/12/18 08:39 08:39 WBC 11.5 H RBC 3.64 Hgb 9.3 L Hct 29.3 L D MCV 80.5 MCH 25.5 L MCHC 31.7 L RDW 16.8 H Plt Count 257 MPV 7.4 L Absolute Neuts (auto) 8.9 H Neutrophils % 77.2 Lymphocytes % 11.1 Monocytes % 9.5 Eosinophils % 2.0 D Basophils % 0.2 Nucleated RBC % 0 PT with INR 17.80 H INR 1.50 H PTT (Actin FS) 26.8 POC Glucometer Total Protein (PEP) Albumin (PEP) Globulin Albumin/Globulin Ratio Beta Globulins Urine Color Urine Appearance Urine pH Ur Specific [place] Urine Protein Urine Glucose (UA) Urine Ketones Urine Blood Urine Nitrite Urine Bilirubin Urine Urobilinogen Ur Leukocyte Esterase Opiates Screen Methadone Screen Barbiturate Screen Phencyclidine Screen Ur Amphetamines Screen MDMA (Ecstasy) Screen Benzodiazepines Screen Cocaine Screen U Marijuana (THC) Screen EFFIE M-Claudio HSV I DNA Quant (PCR) HSV II DNA Quant (PCR) Blood Type Antibody Screen Antibody Identification Crossmatch Active Medications Generic Name Dose Route Start Last Admin Trade Name Freq PRN Reason Stop Dose Admin Buprenorphine/Naloxone 1 each 09/09/18 10:00 09/11/18 09:38 Suboxone 8mg/2mg Sl Film - SL Not Given DAILY [facility] Calcitriol 0.5 mcg 09/09/18 10:00 09/11/18 09:38 Rocaltrol - PO 0.5 mcg DAILY [facility] Administration Calcium Carbonate/Cholecalciferol 2 tab 09/09/18 10:00 09/12/18 00:05 Os-Willy 500+D - PO 2 tab BID [facility] Administration Heparin Sodium (Porcine) 1,000 unit 09/11/18 17:39 Heparin - IVPUSH PRN PRN Heparin Heparin Sodium (Porcine) 5,000 unit 09/11/18 17:39 Heparin - IVPUSH PRN PRN Heparin Hydroxyzine Pamoate 50 mg 09/10/18 20:57 09/12/18 00:04 Vistaril - PO 50 mg HS PRN Administration INSOMNIA Heparin Sodium (Porcine) 25, 500 mls @ 20 mls/hr 09/11/18 17:45 000 unit/ Sodium Chloride IV TITR [facility] Protocol 1,000 UNIT/HR Piperacillin Sod/Tazobactam 100 mls @ 200 mls/hr 09/11/18 23:30 Sod 4.5 gm/ Dextrose IVPB Q8H-IV [facility] Protocol Sodium Chloride 1,000 mls @ 100 mls/hr 09/11/18 23:36 09/12/18 00:19 Normal Saline - IV 100 mls/hr ASDIR [facility] Administration Insulin Aspart 1 vial 09/09/18 07:00 09/12/18 07:07 Novolog Vial Sliding Scale - SQ Not Given ACHS [facility] Protocol Pantoprazole Sodium 40 mg 10/10/18 10:30 09/11/18 22:58 Protonix Iv IVPUSH 40 mg BID [facility] Administration Potassium Phos/Sodium Phos 1 packet 09/12/18 10:00 Phos-Nak Packet - PO 09/15/18 09:59 DAILY [facility] Sodium Bicarbonate 325 mg 09/12/18 10:00 Sodium Bicarbonate - PO DAILY [facility] ASSESSMENT/PLAN: Patient is a 58 year old female with a significant past medical history of opiate abuse, HTN, IDDM, s/p gastric bypass, recurrent anemia, gastric ulcer, possible ischemic colitis, chronic diarrhea, DVT on Eliquis who was BIBA due to altered mental status and poor PO intake. #Abdominal pain likely 2/2 pneumoperitoneum -CT of abd and pelvis with contrast - Small focus of pneumoperitoneum. Mild sigmoid wall thickening. Diffuse colonic distention likely due to ileus. Increased nonspecific pelvic free fluid. Resolution of distal small bowel dilatation from small bowel obstruction. Small left pleural effusion. Increased bilateral flank subcutaneous edema. s/p Bariatric gastric surgery. Mild splenomegaly. -Surgery (Dr. Muro) consulted. Recommendations appreciated. -Zosyn 4.5 g q8h -NPO except meds -IV NS @100ml/hr -Hold heparin drip -Replete Mg and Phos -ID (Dr. Veronica) consulted. #Altered mental status: resolved -likely 2/2 Uremia 2/2 Acetaminophen toxicity -Patient reportedly took 80 tablets of percocet in the last 5 days. It is unknown if patient took it at the same time or was distributed over 5 days or last intake. -Acetaminophen level low -Urine toxicology: +opiates -Repeat urine toxicology : negative #Transaminitis 2/2 Acetominophen toxicity: resolved -AST/ALT on admission: 421/266; today #ELLA/Rhabdomyolysis: resolved -BUN/CR 137/4.8 on admission, 22/0.6 today -CK wnl -Encouraged patient to ambulate. -Nephrology (Dr. Calderón) consulted. Recommendations appreciated. - d/c mcdonald. Pt able to void. No urinary retention overnight. - likely severe prerenal disease causing ATN #New onset fevers: resolved -No fevers >24H -UA negative, CXR negative -Blood cx, urine cx pending -may be likely 2/2 opioid withdrawal -will monitor #Opioid abuse -patient refused to take Suboxone today. -Will order stool cx, c.diff, and wbc - negative -Dr. Rich consulted. Recommendations appreciated: -Pt is probably not a candidate to resume percocets. -Suboxone- will start 2mg today and increase to 8mg tomorrow and may increase to BID if needed and tolerated. -Please call [facility]- [phone], for an initial appt for Suboxone treatment- pt is agreeable for this Rx. #Hx of DVT -On eliquis, put on hold due to renal function -On Heparin drip -Will transition back to Eliquis when renal function normalizes #?Suicidal ideation: likely 2/2 Depression -1:1 observation -Psychiatrist (Dr. Watts) consulted. Case referred to [facility]. -Recommendations appreciated: -will recommend find a bed in psychiatry. -Has [employer] outsole caser Dipesh at [phone] -Major Depression with suicidal ideation. -Client preference is admit [facility]. -Offered SSRI at present, but refused. -May give Visatril 50mg for sleep. #Acute on Chronic Normocytic anemia -Hgb 7.1 today. -Transfused 1unit pRBC -FOBT +,refused NIKITA -GI (Dr. Sanon) consulted. Recommendations appreciated. -CT scan of abdomen with contrast done, -will monitor H/H #Hyperkalemia: resolved -6.3 on admission -Received Calcium Gluconate, Insulin +D5W, Albuterol, and Sodium Bicarb -repeat K 4.6 -will continue to monitor #DM -Insulin Sliding Scale -BGM ACHS #FEN -not on any standing fluids. -hypophos, hypoMg, replete as necessary -routine cmp monitoring -diabetic diet #Prophylaxis -patient was on eliquis. Held due to ARF -Heparin drip hold for now. #Disposition -Tele monitoring. Visit type - Emergency Visit Emergency Visit: Yes ED Registration Date: 09/06/18 Care time: The patient presented to the Emergency Department on the above date and was hospitalized for further evaluation of their emergent condition. - New Patient This patient is new to me today: Yes Date on this admission: 09/12/18 - Critical Care Critical Care patient: No
[2018-09-12] MEDS ORDERED: MAGNESIUM OXIDE 400 MG TABLET (FP) PO ONE (09:52)
[2018-09-12] MEDS ORDERED: MAGNESIUM SULF 50% (8.12 MEQ/2 ML-1 GM VIAL) IVPB ONE (11:22)
[2018-09-12] MEDS: NAPH,MB-DB/K PH,MBDB POWDER PACKET PO SCH (11:41)
[2018-09-12] MEDS: PANTOPRAZOLE SODIUM 40 MG VIAL IVPUSH SCH ×2 (11:41→21:20)
[2018-09-12] MEDS: SODIUM BICARBONATE 325 MG TABLET PO SCH (11:42)
[2018-09-12] MEDS: CALCITRIOL 0.25 MCG CAPSULE (FP) PO SCH (11:42)
[2018-09-12] MEDS: BUPRENORPHINE/NALOXONE 8 MG/2 MG FILM PACKET SL SCH ×2 (11:42→12:32)
--- NOTE | 2018-09-12 13:21 | CON.ID ---
Consult - History of Present Illness History of Present Illness: 58 y.o. female with PMH of gastric bypass with , possible gastric ulcers at anastomosis site, DVT, IDDM, opiod dependence, anemia, and chronic diarrhea ( for about 3 months as per pt) initially admitted for lethargy/decreased appetited noted to have percocet overdose (taken for Lt shoulder pain as per pt. Began to have wbc elevation and temp of >102F 2 days ago. She c/o abdominal pain in lower region mainly described as 9/10 intensity. Today had 2 BMs but does not know consistency. Pt denies shortness of breath/chest pain, dysuria, headache and is currently alert without visible distress. - History Source History Provided By: Patient Limitations to Obtaining History: No Limitations - Past Medical History NURSE AIDE: Yes: Migraine Cardio/Vascular: Yes: HTN, Hyperlipdemia Gastrointestinal: Yes: Other (personal history of colon polyps) Renal/: Yes: Other (ELLA) Heme/Onc: Yes: Anemia Infectious Disease: Yes: Other (PPD + per previous records) Musculoskeletal: Yes: Chronic low back pain, Other (Lt shoulder pain) Endocrine: Yes: Diabetes Mellitus - Past Surgical History Past Surgical History: Yes: Bariatric Surgery (gastric bypass 2008), Cholecystectomy - Alcohol/Substance Use Hx Alcohol Use: No History of Substance Use: reports: None, Prescription (percocet) - Smoking History Smoking history: Unknown if ever smoked Have you smoked in the past 12 months: No Aproximately how many cigarettes per day: 0 - Social History Usual Living Arrangement: With Spouse ADL: Independent History of Recent Travel: No Home Medications - Allergies Allergies/Adverse Reactions: Allergies Allergy/AdvReac Type Severity Reaction Status Date / Time No Known Allergies Allergy Verified 09/06/18 15:25 - Home Medications Home Medications: Ambulatory Orders Glimepiride [Amaryl -] 4 mg PO BID 10/26/12 Cholecalciferol (Vitamin D3) [Vitamin D3] 2,000 unit PO DAILY 07/14/14 Fenofibrate Nanocrystallized [Tricor] 145 mg PO DAILY 07/14/14 Insulin Lispro [Humalog] 5 unit SQ AC 07/14/14 Multivitamins [Multivit ([facility] Formulary)] 1 tab PO DAILY 07/14/14 Acarbose [Precose -] 25 mg PO TID 06/25/18 Duloxetine HCl [Cymbalta] 30 mg PO DAILY 06/25/18 Omeprazole 20 mg PO DAILY 06/27/18 Ferrous Sulfate [Feosol] 325 mg PO DAILY #30 ud 07/15/18 Insulin Aspart [Novolog Flexpen] See Protocol SQ ACHS #5 insuln.pen 07/15/18 Mesalamine [Asacol HD -] 800 mg PO TID #60 tablet. 07/15/18 Oxycodone HCl 5 mg PO Q6H #8 tablet MDD 2 07/15/18 Apixaban [Eliquis] 5 mg PO BID #60 tablet 08/06/18 Lisinopril 2.5 mg PO DAILY #30 tablet 08/06/18 Metformin HCl 850 mg PO BID 09/07/18 Oxycodone HCl/Acetaminophen [Percocet 10-325 mg Tablet] 1 each PO TID PRN Pravastatin Sodium [Pravachol (Nf)] 80 mg PO HS 09/07/18 Sitagliptin Phosphate [Januvia] 100 mg PO DAILY 09/07/18 Family Disease History - Family Disease History Family Disease History: Other: Father (: 52: [place] ? h/o crohn's ), Mother ( Alive: healthy), Brother (1, healthy), Sister (2, healthy) Review of Systems - Review of Systems Constitutional: reports: Chills, Fever Eyes: reports: No Symptoms HENT: reports: No Symptoms Neck: reports: No Symptoms Cardiovascular: reports: No Symptoms Respiratory: reports: No Symptoms Gastrointestinal: reports: Abdominal Pain Genitourinary: reports: No Symptoms Musculoskeletal: reports: Joint Pain (Lt shoulder) Integumentary: reports: No Symptoms Neurological: reports: No Symptoms Psychiatric: reports: No Symptoms Pain Intensity: 9 Physical Exam Vital Signs: Vital Signs Temperature 98.9 F 09/11/18 21:03 Pulse Rate 112 H 09/11/18 21:03 Respiratory Rate 20 09/11/18 21:03 Blood Pressure 138/48 L 09/11/18 21:03 O2 Sat by Pulse Oximetry (%) 99 09/11/18 22:00 Constitutional: Yes: No Distress, Calm Cardiovascular: Yes: Tachycardia Respiratory: Yes: CTA Bilaterally Gastrointestinal: Yes: Soft, Tenderness (lower abdomen greatest in RLQ) Extremities: Yes: WNL Integumentary: Yes: WNL Neurological: Yes: Alert, Oriented Labs: CBC, BMP 09/12/18 08:39 09/12/18 08:39 Laboratory Results - last 24 hr 09/06/18 09/08/18 09/10/18 22:28 06:45 08:20 WBC RBC Hgb Hct MCV MCH MCHC RDW Plt Count MPV Absolute Neuts (auto) Neutrophils % Lymphocytes % Monocytes % Eosinophils % Basophils % Nucleated RBC % PT with INR INR PTT (Actin FS) Sodium Potassium Chloride Carbon Dioxide Anion Gap BUN Creatinine Creat Clearance w eGFR POC Glucometer Random Glucose Calcium Phosphorus Magnesium Total Bilirubin AST ALT Alkaline Phosphatase Total Protein Total Protein (PEP) 4.1 L Albumin Albumin (PEP) 1.7 L Globulin 2.4 Albumin/Globulin Ratio 0.7 Beta Globulins 0.6 L EFFIE M-Claudio HSV I DNA Quant (PCR) Negative HSV II DNA Quant (PCR) Negative Blood Type O POSITIVE Antibody Screen Positive H Antibody Identification Anti-K Crossmatch See Detail 09/11/18 09/11/18 09/12/18 17:00 22:55 07:05 WBC RBC Hgb Hct MCV MCH MCHC RDW Plt Count MPV Absolute Neuts (auto) Neutrophils % Lymphocytes % Monocytes % Eosinophils % Basophils % Nucleated RBC % PT with INR INR PTT (Actin FS) Sodium Potassium Chloride Carbon Dioxide Anion Gap BUN Creatinine Creat Clearance w eGFR POC Glucometer 195 207 165 Random Glucose Calcium Phosphorus Magnesium Total Bilirubin AST ALT Alkaline Phosphatase Total Protein Total Protein (PEP) Albumin Albumin (PEP) Globulin Albumin/Globulin Ratio Beta Globulins EFFIE M-Claudio HSV I DNA Quant (PCR) HSV II DNA Quant (PCR) Blood Type Antibody Screen Antibody Identification Crossmatch 09/12/18 09/12/18 09/12/18 08:39 08:39 08:39 WBC 11.5 H RBC 3.64 Hgb 9.3 L Hct 29.3 L D MCV 80.5 MCH 25.5 L MCHC 31.7 L RDW 16.8 H Plt Count 257 MPV 7.4 L Absolute Neuts (auto) 8.9 H Neutrophils % 77.2 Lymphocytes % 11.1 Monocytes % 9.5 Eosinophils % 2.0 D Basophils % 0.2 Nucleated RBC % 0 PT with INR 17.80 H INR 1.50 H PTT (Actin FS) 26.8 Sodium 139 Potassium 4.0 Chloride 110 H Carbon Dioxide 18 L Anion Gap 10 BUN 22 H Creatinine 0.6 Creat Clearance w eGFR > 60 POC Glucometer Random Glucose 182 H Calcium 7.4 L Phosphorus 2.4 L Magnesium 1.5 L Total Bilirubin 0.5 AST 17 ALT 35 Alkaline Phosphatase 60 Total Protein 4.2 L Total Protein (PEP) Albumin 1.4 L Albumin (PEP) Globulin Albumin/Globulin Ratio Beta Globulins EFFIE M-Claudio HSV I DNA Quant (PCR) HSV II DNA Quant (PCR) Blood Type Antibody Screen Antibody Identification Crossmatch 09/12/18 11:40 WBC RBC Hgb Hct MCV MCH MCHC RDW Plt Count MPV Absolute Neuts (auto) Neutrophils % Lymphocytes % Monocytes % Eosinophils % Basophils % Nucleated RBC % PT with INR INR PTT (Actin FS) Sodium Potassium Chloride Carbon Dioxide Anion Gap BUN Creatinine Creat Clearance w eGFR POC Glucometer 194 Random Glucose Calcium Phosphorus Magnesium Total Bilirubin AST ALT Alkaline Phosphatase Total Protein Total Protein (PEP) Albumin Albumin (PEP) Globulin Albumin/Globulin Ratio Beta Globulins EFFIE M-Claudio HSV I DNA Quant (PCR) HSV II DNA Quant (PCR) Blood Type Antibody Screen Antibody Identification Crossmatch Microbiology 09/10/18 18:50 Urine - Urine - Catheterized Urine Culture - Final NO GROWTH OBTAINED 09/11/18 10:00 Blood - Peripheral Venous Blood Culture - Preliminary NO GROWTH OBTAINED AFTER 24 HOURS, INCUBATION TO CONTINUE FOR 4 DAYS. 09/11/18 09:27 Blood - Peripheral Venous Blood Culture - Preliminary NO GROWTH OBTAINED AFTER 24 HOURS, INCUBATION TO CONTINUE FOR 4 DAYS. 09/06/18 17:22 Blood - Peripheral Venous Blood Culture - Final NO GROWTH AFTER 5 DAYS INCUBATION 09/06/18 17:22 Blood - Peripheral Venous Blood Culture - Final NO GROWTH AFTER 5 DAYS INCUBATION 09/09/18 18:30 Stool Gram Stain - Final 09/09/18 18:30 Stool Clostridium difficile Antigen (MISTI) - Final 09/09/18 18:30 Stool Clostridium difficile Toxin Assay - Final 09/06/18 23:57 Cerebral Spinal Fluid - Lumbar Puncture Gram Stain - Final 09/06/18 23:57 Cerebral Spinal Fluid - Lumbar Puncture CSF Culture - Final 09/06/18 16:04 Urine - Urine La Urine Culture - Final NO GROWTH OBTAINED 09/06/18 22:28 Cerebral Spinal Fluid - Lumbar Puncture Streptococcus pneumoniae Antigen (M - Final Imaging - Results Cat Scan: Report Reviewed (CT abd/pelvis: pneumoperitoneum adjacent to sigmoid colon, sigmoid wall thickening, colonic distension) Problem List - Problems (1) ARF (acute renal failure) Code(s): N17.9 - ACUTE KIDNEY FAILURE, UNSPECIFIED Qualifiers: Acute renal failure type: unspecified Qualified Code(s): N17.9 - Acute kidney failure, unspecified (2) Abdominal pain Code(s): R10.9 - UNSPECIFIED ABDOMINAL PAIN (3) Depression, major, severe recurrence Code(s): F33.2 - MAJOR DEPRESSV DISORDER, RECURRENT SEVERE W/O PSYCH FEATURES (4) Fever Code(s): R50.9 - FEVER, UNSPECIFIED Qualifiers: Fever type: unspecified Qualified Code(s): R50.9 - Fever, unspecified (5) Rhabdomyolysis Code(s): M62.82 - RHABDOMYOLYSIS Qualifiers: Rhabdomyolysis type: non-traumatic Qualified Code(s): M62.82 - Rhabdomyolysis (6) Sepsis Code(s): A41.9 - SEPSIS, UNSPECIFIED ORGANISM Qualifiers: Sepsis type: sepsis due to unspecified organism Qualified Code(s): A41.9 - Sepsis, unspecified organism (7) DVT (deep venous thrombosis) Code(s): I82.409 - ACUTE EMBOLISM AND THOMBOS UNSP DEEP VN UNSP LOWER EXTREMITY (8) Anemia Code(s): D64.9 - ANEMIA, UNSPECIFIED Qualifiers: Anemia type: unspecified type Qualified Code(s): D64.9 - Anemia, unspecified (9) Chronic diarrhea Code(s): K52.9 - NONINFECTIVE GASTROENTERITIS AND COLITIS, UNSPECIFIED (10) Diabetes Code(s): E11.9 - TYPE 2 DIABETES MELLITUS WITHOUT COMPLICATIONS (11) Opioid abuse Code(s): F11.10 - OPIOID ABUSE, UNCOMPLICATED (12) Leukocytosis Code(s): D72.829 - ELEVATED WHITE BLOOD CELL COUNT, UNSPECIFIED Assessment/Plan 58 y.o. female with PMH of gastric bypass with ulcerations at anastamosis site, opiod dependence on percocet, anemia, IDDM, chronic diarrhea (3 months per patient) admitted for lethargy attributed to percocet overdose recently developed fever/leukocytosis with persistent lower abd pain. CT abdomen with findings of colon distention and sigmoid wall thickening Sigmoid diverticulitis Sepsis Fever Leukocytosis Chronic diarrhea - CDT neg LUE cephalic vein thrombosis Opiod dependence -- continue Zosyn at this time -- surgical evaluation -- wbc downward trend, currently afebrile -- latest blood cultures no growth/Urine Culture neg will follow Thank you
--- NOTE | 2018-09-12 13:41 | PN ---
Progress Note (short form) - Note Progress Note: RENAL Pt is awake and alert comfortable though not eating has been having diarrhea Last Vital Signs Temp Pulse Resp BP Pulse Ox 98.3 F 104 H 18 139/89 99 09/12/18 09:00 09/12/18 09:00 09/12/18 09:00 09/12/18 09:00 09/12/18 09:00 lungs clear cvs s1s2 rr abd soft ext trace edema neuro a+ox3 CBC, BMP 09/12/18 08:39 09/12/18 08:39 Current Medications Generic Name Dose Route Start Last Admin Trade Name Freq PRN Reason Stop Dose Admin Buprenorphine/Naloxone 1 each 09/09/18 10:00 09/12/18 12:32 Suboxone 8mg/2mg Sl Film - SL Not Given DAILY YAMILKA Calcitriol 0.5 mcg 09/09/18 10:00 09/12/18 11:42 Rocaltrol - PO 0.5 mcg DAILY YAMILKA Administration Calcium Carbonate/Cholecalciferol 2 tab 09/09/18 10:00 09/12/18 11:41 Os-Willy 500+D - PO 2 tab BID YAMILKA Administration Heparin Sodium (Porcine) 1,000 unit 09/11/18 17:39 Heparin - IVPUSH PRN PRN Heparin Heparin Sodium (Porcine) 5,000 unit 09/11/18 17:39 Heparin - IVPUSH PRN PRN Heparin Hydroxyzine Pamoate 50 mg 09/10/18 20:57 09/12/18 00:04 Vistaril - PO 50 mg HS PRN Administration INSOMNIA Heparin Sodium (Porcine) 25, 500 mls @ 20 mls/hr 09/11/18 17:45 000 unit/ Sodium Chloride IV TITR YAMILKA Protocol 1,000 UNIT/HR Piperacillin Sod/Tazobactam 100 mls @ 200 mls/hr 09/11/18 23:30 Sod 4.5 gm/ Dextrose IVPB Q8H-IV YAMILKA Protocol Sodium Chloride 1,000 mls @ 100 mls/hr 09/11/18 23:36 09/12/18 00:19 Normal Saline - IV 100 mls/hr ASDIR YAMILKA Administration Piperacillin Sod/Tazobactam 100 mls @ 200 mls/hr 09/12/18 15:00 Sod 4.5 gm/ Dextrose IVPB Q8H-IV YAMILKA Protocol Insulin Aspart 1 vial 09/09/18 07:00 09/12/18 11:41 Novolog Vial Sliding Scale - SQ 2 units ACHS YAMILKA Administration Protocol Pantoprazole Sodium 40 mg 09/09/18 10:30 09/12/18 11:41 Protonix Iv IVPUSH 40 mg BID YAMILKA Administration Potassium Phos/Sodium Phos 1 packet 09/12/18 10:00 09/12/18 11:41 Phos-Nak Packet - PO 09/15/18 09:59 1 packet DAILY YAMILKA Administration Sodium Bicarbonate 325 mg 09/12/18 10:00 09/12/18 11:42 Sodium Bicarbonate - PO 325 mg DAILY YMAILKA Administration Impression 1. ELLA 2. hyperkalemia 3. drug overdose 4. tylenol toxicity 5. rhabdo 6. opioid dependence 7. microscopic hematuria 8. anemia 9. HTN 10. DM 11. hypocalcemia 12, malnutrition Plan low bicarb can be from diarrhea and /or saline keep on fluids if npo though would change to d5 1/2 ns with one amp of bicarb MV
[2018-09-12] MEDS ORDERED: DEXTROSE 5%-0.45% SALINE 950 ML with SODIUM BICARBONATE 8.4% - 50 MEQ IV SCH (17:45)
[2018-09-12] MEDS: SODIUM BICARBONATE 8.4% - 50 MEQ in DEXTROSE 5%-0.45% SALINE 950 ML IV SCH (18:45)
--- NOTE | 2018-09-12 19:09 | CONSULT ---
Consult Consult Specialty:: General Surgery Referred by:: Dr. Rubio Reason for Consultation:: sigmoid colon inflammation with microperforation - History of Present Illness Chief Complaint: RLQ pain, weakness, diarrhea History of Present Illness: 58yo morbidly obese F with multiple medical problems, s/p lap gastric bypass 9yrs ago with subsequent abdominoplasty and lap jessica, has had chronic diarrhea for at least 3 months. GI note reviewed with details outlining endoscopies showing ulceration in sigmoid colon, ischemic colitis, and treatments with Asacol and pt's failure to follow up as outpatient. She has been on medical service for the last week, for diarrhea and RLQ pain, which is a bit better now per pt. She had also overdosed on Percocet, with improvement since in renal function and liver findings. CT on arrival suggested possible SBO; repeat CT was done yesterday to followup, and showed microperforation at mid-sigmoid colon with associated thickened wall, inflammatory changes, dilated colon, small increase in pelvic fluid but resolution of SB dilation. She was made NPO except meds and had IV fluids, which had just been stopped, resumed overnight. She had been on heparin drip for recent DVT diagnosis (vs home Eliquis, because of ELLA), which has been held for 2d now, initially because of pt refusal, now pending surgical evaluation. She has been seen by psychiatry and transfer to in psych bed is planned when she is medically stable for discharge. She is seen and examined in bed, with 1:1 attendant present. She seems in fairly good spirits, but with somewhat flat affect. She indicates her pain is mainly RLQ, near ASIS, but is overall a bit better. Still with loose stools, but also a bit better. She is hungry, and wants to chew gum or have tea, if she cannot eat yet. She is taking occasional ice chips and meds with sips. She denies EMERY or dizziness, but feels weak overall. Denies N/V, urinary complaints or blood in diarrhea. No fever or chills, but her hands feel cold. She is only a fair historian. 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: Yes: Migraine Cardio/Vascular: Yes: HTN, Hyperlipdemia Gastrointestinal: Yes: Other (morbid obesity; colon polyps; ischemic colitis with sigmoid/left colon ulcers) Renal/: Yes: Other (ELLA) ...: No Heme/Onc: Yes: Anemia Infectious Disease: Yes: Other (PPD + per previous records) Psych: Yes: Anxiety, Depression Musculoskeletal: Yes: Chronic low back pain, Other (Lt shoulder pain, ?injury 5m ago) Endocrine: Yes: Diabetes Mellitus - Past Surgical History Past Surgical History: Yes: Bariatric Surgery (laparoscopic gastric bypass 2008) , Cholecystectomy (laparoscopic), Colonoscopy, Upper Endoscopy Additional Surgical History: abdominoplasty - Alcohol/Substance Use Hx Alcohol Use: No History of Substance Use: reports: None, Prescription (percocet) - Smoking History Smoking history: Never smoked Have you smoked in the past 12 months: No - Social History Usual Living Arrangement: With Spouse ADL: Independent History of Recent Travel: No Home Medications - Allergies Allergies/Adverse Reactions: Allergies Allergy/AdvReac Type Severity Reaction Status Date / Time No Known Allergies Allergy Verified 09/06/18 15:25 - Home Medications Home Medications: Ambulatory Orders Glimepiride [Amaryl -] 4 mg PO BID 10/26/12 Cholecalciferol (Vitamin D3) [Vitamin D3] 2,000 unit PO DAILY 07/14/14 Fenofibrate Nanocrystallized [Tricor] 145 mg PO DAILY 07/14/14 Insulin Lispro [Humalog] 5 unit SQ AC 07/14/14 Multivitamins [Multivit ([facility] Formul[facility])] 1 tab PO DAILY 07/14/14 Acarbose [Precose -] 25 mg PO TID 06/25/18 Duloxetine HCl [Cymbalta] 30 mg PO DAILY 06/25/18 Omeprazole 20 mg PO DAILY 06/27/18 Ferrous Sulfate [Feosol] 325 mg PO DAILY #30 ud 07/15/18 Insulin Aspart [Novolog Flexpen] See Protocol SQ ACHS #5 insuln.pen 07/15/18 Mesalamine [Asacol HD -] 800 mg PO TID #60 tablet. 07/15/18 Oxycodone HCl 5 mg PO Q6H #8 tablet MDD 2 07/15/18 Apixaban [Eliquis] 5 mg PO BID #60 tablet 08/06/18 Lisinopril 2.5 mg PO DAILY #30 tablet 08/06/18 Metformin HCl 850 mg PO BID 09/07/18 Oxycodone HCl/Acetaminophen [Percocet 10-325 mg Tablet] 1 each PO TID PRN Pravastatin Sodium [Pravachol (Nf)] 80 mg PO HS 09/07/18 Sitagliptin Phosphate [Januvia] 100 mg PO DAILY 09/07/18 Family Disease History - Family Disease History Family Disease History: Other: Father (: 52: [place]. ? h/o crohn's ), Mother ( Alive: healthy), Brother (1, healthy), Sister (2, healthy) Review of Systems - Review of Systems Constitutional: reports: Weakness. denies: Chills, Fever Eyes: reports: Other (contact lenses (out now)). denies: Recent Change in Vision HENT: reports: Throat Pain (sore throat for 3 days). denies: Difficult Swallowing, Hearing Loss, Nasal Congestion Neck: denies: Swollen Glands, Tenderness Cardiovascular: denies: Chest Pain, Palpitations Respiratory: denies: Cough, SOB Gastrointestinal: reports: Abdominal Pain (with hpi), Diarrhea (with hpi). denies: Nausea, Rectal Bleeding, Vomiting Genitourinary: denies: Burning, Dysuria Musculoskeletal: reports: Joint Pain (left shoulder). denies: Joint Swelling Integumentary: reports: Bruising (right antecub ecchymosis from IV site). denies: Rash Neurological: reports: Unsteady Gait, Weakness. denies: Dizziness, Headache Psychiatric: reports: Anxiety, Depression, Suicidal (on admission - had overdosed) Physical Exam Vital Signs: Vital Signs Temperature 99.0 F 09/12/18 15:25 Pulse Rate 99 H 09/12/18 15:25 Respiratory Rate 18 09/12/18 15:25 Blood Pressure 126/86 09/12/18 15:25 O2 Sat by Pulse Oximetry (%) 99 09/12/18 09:00 Constitutional: Yes: No Distress, Calm, Obese Eyes: Yes: Conjunctiva Clear, EOM Intact HENT: Yes: Atraumatic, Normocephalic Neck: Yes: Supple, Trachea Midline Cardiovascular: Yes: Tachycardia, Murmur. No: Pulse Irregular Respiratory: Yes: Regular, CTA Bilaterally Gastrointestinal: Yes: Normal Bowel Sounds, Soft, Abdomen, Obese, Tenderness ( bilateral lower quadrants but not suprapubic, also LUQ, L midabdomen), Other ( well-healed abdominoplasty scars and laparoscopic scars). No: Tenderness, Epigastrium, Tenderness, Rebound ...Rectal Exam: Yes: Deferred Renal/: No: CVA Tenderness - Left, CVA Tenderness - Right Musculoskeletal: Yes: Joint Stiffness (left shoulder). No: Joint Swelling Extremities: Yes: Cool (hands), Pallor. No: Cold, Cyanosis Edema: No Peripheral Pulses WNL: Yes Integumentary: Yes: Bruising (left antecub from IV site). No: Jaundice, Rash Neurological: Yes: Alert, Oriented Psychiatric: Yes: Alert, Oriented, Other (flat affect) Labs: CBC, BMP 09/12/18 08:39 09/12/18 08:39 wbc down from 14 Hb up from 7.1 CO2 up from 14 CMP Sodium 139 mmol/L (136-145) 09/12/18 08:39 Potassium 4.0 mmol/L (3.5-5.1) 09/12/18 08:39 Chloride 110 mmol/L (98-107) H 09/12/18 08:39 Carbon Dioxide 18 mmol/L (21-32) L 09/12/18 08:39 Anion Gap 10 MMOL/L (8-16) 09/12/18 08:39 BUN 22 mg/dL (7-18) H 09/12/18 08:39 Creatinine 0.6 mg/dL (0.55-1.3) 09/12/18 08:39 Creat Clearance w eGFR > 60 (>60) 09/12/18 08:39 POC Glucometer 128 UNITS (80-120) 09/12/18 17:04 Random Glucose 182 mg/dL (74-106) H 09/12/18 08:39 Serum Osmolality 341 mosm/kg (278-305) H 09/06/18 20:00 Lactic Acid 1.1 mmol/L (0.4-2.0) 09/06/18 17:22 Calcium 7.4 mg/dL (8.5-10.1) L 09/12/18 08:39 Phosphorus 2.4 mg/dL (2.5-4.9) L 09/12/18 08:39 Magnesium 1.5 mg/dL (1.8-2.4) L 09/12/18 08:39 Iron 6 ug/dL (27-159) L 09/06/18 20:00 TIBC 194 ug/dL (250-450) L 09/06/18 20:00 Iron Saturation 3 % (15-55) L 09/06/18 20:00 Total Bilirubin 0.5 mg/dL (0.2-1) 09/12/18 08:39 Direct Bilirubin 0.3 mg/dL (0.0-0.2) H 09/07/18 18:00 AST 17 U/L (15-37) 09/12/18 08:39 ALT 35 U/L (13-61) 09/12/18 08:39 Alkaline Phosphatase 60 U/L (45-117) 09/12/18 08:39 Ammonia < 10 umol/L (11-32) L 09/06/18 23:25 Creatine Kinase 153 IU/L (26-192) 09/10/18 06:00 Creatine Kinase Index 0.9 % (0.0-5.0) 09/10/18 06:00 CK-MB (CK-2) 1.4 ng/mL (0.5-3.6) 09/10/18 06:00 Troponin I 0.06 ng/ml (0.00-0.05) H 09/06/18 20:00 Total Protein 4.2 g/dl (6.4-8.2) L 09/12/18 08:39 Total Protein (PEP) 4.1 g/dL (6.0-8.5) L 09/08/18 06:45 Albumin 1.4 g/dl (3.4-5.0) L 09/12/18 08:39 Albumin (PEP) 1.7 gm/dl (2.9-4.4) L 09/08/18 06:45 Globulin 2.4 g/dL (2.2-3.9) 09/08/18 06:45 Albumin/Globulin Ratio 0.7 (0.7-1.7) 09/08/18 06:45 Beta Globulins 0.6 gm/dL (0.7-1.3) L 09/08/18 06:45 Lipase 79 U/L (73-393) 09/06/18 20:00 Phos and Mg low INR, PTT INR 1.50 (0.83-1.09) H 09/12/18 08:39 Urine Test Results Urine Color Yellow 09/11/18 10:57 Urine Appearance Clear 09/11/18 10:57 Urine pH 5.0 (5.0-8.0) 09/11/18 10:57 Ur Specific [place] 1.011 (1.010-1.035) 09/11/18 10:57 Urine Protein Negative (NEGATIVE) 09/11/18 10:57 Urine Glucose (UA) 3+ (NEGATIVE) H 09/11/18 10:57 Urine Ketones 1+ (NEGATIVE) H 09/11/18 10:57 Urine Blood Negative (NEGATIVE) 09/11/18 10:57 Urine Nitrite Negative (NEGATIVE) 09/11/18 10:57 Urine Bilirubin Negative (<2.0 mg/dL) 09/11/18 10:57 Ur Leukocyte Esterase Negative (NEGATIVE) 09/11/18 10:57 Urine Mucus Rare 09/06/18 16:04 Imaging - Results Cat Scan: Report Reviewed, Image Reviewed (images personally reviewed - mid- sigmoid colon with inflammatory changes, mildly thickened wall with adjacent few locules of air, no prominent diverticuli there; some free fluid in pelvis, no apparent SBO or dilated SB loops; distended colon; no gross free air) Problem List - Problems (1) Perforation of sigmoid colon Assessment/Plan: microperforation of sigmoid colon, likely related to known ischemic colitis and sigmoid ulceration noted by GI on last scope 08/18 pt has been noncompliant with outpatient followup each of last 3 months regarding workup and treatment for chronic diarrhea and ischemic colitis, following hospitalizations since CT on admission with possible SB obstructive picture, CT yesterday showed above with resolution of dilated SB loops, but some increase in pelvic fluid agree with NPO except meds and IVF until pain and tenderness improve or repeat imaging shows improvement/resolution of sigmoid inflammation and microperf IV antibiotics as per ID occasional ice chips ok, but would not give gum or candy encourage OOB to chair and some ambulation as possible with assistance or PT GI following discussed with patient that if surgery were needed emergently for gross perforation/free air, laparotomy would likely include possible bowel resection and colostomy; she would prefer to avoid operation if possible pt is high risk for operative and wound complications secondary to morbid obesity, diabetes, hypoalbuminemia, anticoagulated state, among other comorbidities GI consult noted will follow with you Code(s): K63.1 - PERFORATION OF INTESTINE (NONTRAUMATIC) (2) Chronic ischemic colitis Code(s): K55.1 - CHRONIC VASCULAR DISORDERS OF INTESTINE (3) Chronic diarrhea Code(s): K52.9 - NONINFECTIVE GASTROENTERITIS AND COLITIS, UNSPECIFIED (4) RLQ abdominal pain Code(s): R10.31 - RIGHT LOWER QUADRANT PAIN (5) Morbid obesity Assessment/Plan: s/p lap gastric bypass 2008 and subsequent abdominoplasty pt does not follow with her bariatric surgeon ([facility]) "because it was a bad result " Code(s): E66.01 - MORBID (SEVERE) OBESITY DUE TO EXCESS CALORIES (6) Acetaminophen toxicity Code(s): T39.1X1A - POISONING BY 4-AMINOPHENOL DERIVATIVES, ACCIDENTAL, INIT Qualifiers: Encounter type: initial encounter Injury intent: intentional self-harm Qualified Code(s): T39.1X2A - Poisoning by 4-Aminophenol derivatives, intentional self-harm, initial encounter (7) Opioid abuse Assessment/Plan: plan for inpatient psych transfer when medically stable noted Code(s): F11.10 - OPIOID ABUSE, UNCOMPLICATED (8) Personal history of other venous thrombosis and embolism Assessment/Plan: heparin drip currently on hold Code(s): Z86.718 - PERSONAL HISTORY OF OTHER VENOUS THROMBOSIS AND EMBOLISM (9) Diabetes mellitus type 2, insulin dependent Code(s): E11.9 - TYPE 2 DIABETES MELLITUS WITHOUT COMPLICATIONS; Z79.4 - [facility] (CURRENT) USE OF INSULIN
[2018-09-12] MEDS: HEPARIN - 25,000 UNIT in SODIUM CHLORIDE 495 ML IV SCH (19:56)
[2018-09-13] MEDS ORDERED: DEXTROSE 5%-WATER 100 ML IVPB ONE ×3 (00:06→16:40)
[2018-09-13] MEDS ORDERED: PIPERACILLIN/TAZOBACTAM 4.5 GM VIAL IVPB ONE ×3 (00:06→16:40)
[2018-09-13] MEDS ORDERED: hydrOXYzine PAMOATE 50 MG CAPSULE (FP) PO ONE (00:49)
[2018-09-13] MEDS: PIPERACILLIN/TAZOB 4.5 GM 4.5 GM in DEXTROSE 5%-WATER 100 ML IVPB SCH ×3 (01:08→17:52)
[2018-09-13] MEDS: SODIUM BICARBONATE 8.4% - 50 MEQ in DEXTROSE 5%-0.45% SALINE 950 ML IV SCH ×3 (04:18→22:59)
[2018-09-13] MEDS: INSULIN SLIDING SCALE (NOVOLOG) 1 VIAL SQ SCH ×4 (06:20→21:09)
[2018-09-13 07:48] LABS: BASO % 0.5 % (0-2.0); HEMATOCRIT 32.3 % (32.4-45.2); HEMOGLOBIN 10.4 GM/dL (10.7-15.3); LYMPH % 13.7 % (8-40); MCH 26.3 pg (25.7-33.7); MCHC 32.3 g/dl (32.0-36.0); MEAN CELL VOLUME 81.3 fl (80-96); MEAN PLT VOLUME 7.8 fl (7.5-11.1); MONO % 7.2 % (3.8-10.2); NEUT % 75.6 % (42.8-82.8); PLATELET COUNT 183 K/MM3 (134-434); RBC 3.98 M/mm3 (3.60-5.2); RDW 16.8 % (11.6-15.6); WHITE BLOOD COUNT 8.9 K/mm3 (4.0-10.0)
[2018-09-13 09:19] LABS: ALBUMIN 1.5 g/dl (3.4-5.0); ALK PHOS 64 U/L (45-117); ANION GAP 13 MMOL/L (8-16); BILIRUBIN,TOTAL 0.6 mg/dL (0.2-1); BLOOD UREA NITROGEN 12 mg/dL (7-18); CALCIUM 7.3 mg/dL (8.5-10.1); CHLORIDE 109 mmol/L (98-107); CO2 18 mmol/L (21-32); CREATININE 0.7 mg/dL (0.55-1.3); GLUCOSE,RANDOM 222 mg/dL (74-106); MAGNESIUM 1.4 mg/dL (1.8-2.4); PHOSPHOROUS 2.8 mg/dL (2.5-4.9); SGOT/AST 32 U/L (15-37); SGPT/ALT 35 U/L (13-61); SODIUM 140 mmol/L (136-145); TOT PROT 4.8 g/dl (6.4-8.2)
[2018-09-13] MEDS: NAPH,MB-DB/K PH,MBDB POWDER PACKET PO SCH (10:21)
[2018-09-13] MEDS: BUPRENORPHINE/NALOXONE 8 MG/2 MG FILM PACKET SL SCH (10:21)
[2018-09-13] MEDS: PANTOPRAZOLE SODIUM 40 MG VIAL IVPUSH SCH ×2 (10:21→21:10)
[2018-09-13] MEDS: CALCITRIOL 0.25 MCG CAPSULE (FP) PO SCH (10:21)
[2018-09-13] MEDS: CALCIUM 500MG/VIT-D 200 UNITS COMBO TABLET (FP) PO SCH ×2 (10:21→21:09)
[2018-09-13] MEDS: SODIUM BICARBONATE 325 MG TABLET PO SCH (10:21)
[2018-09-13] MEDS ORDERED: PT OWN MED DRAWER 7, Y5N ONE ×2 (10:30→16:39)
[2018-09-13] MEDS ORDERED: MAGNESIUM SULF 50% (8.12 MEQ/2 ML-1 GM VIAL) IVPB ONE (11:14)
--- NOTE | 2018-09-13 11:16 | PN ---
Physical Exam: SUBJECTIVE: Patient seen and examined, improved abdominal pain and diarrhea. no nausea, vomiting, chest pain or new concerns. OBJECTIVE: Vital Signs Period Temp Pulse Resp BP Sys/Funes Pulse Ox Last 24 Hr 98 F-99.0 F 92-99 18-20 116-135/52-86 98 GENERAL: sitting in bed in no acute distress, AAOx3 Chest; CTAB, no rales or wheezing Abdomen:soft, obese, tenderness in RLQ and LLQ, more in LLQ with point tenderness, improved exam, no voluntary or involuntary guarding or rigidity, positive bowel sounds Extremities: no edema Laboratory Results - last 24 hr 09/06/18 09/12/18 09/12/18 22:28 11:40 17:04 WBC RBC Hgb Hct MCV MCH MCHC RDW Plt Count MPV Absolute Neuts (auto) Neutrophils % Lymphocytes % Monocytes % Eosinophils % Basophils % Nucleated RBC % PTT (Actin FS) Sodium Potassium Chloride Carbon Dioxide Anion Gap BUN Creatinine Creat Clearance w eGFR POC Glucometer 194 128 Random Glucose Calcium Phosphorus Magnesium Total Bilirubin AST ALT Alkaline Phosphatase Total Protein Albumin Fluid Culture H.influenzae Type B Ag Negative N. meningitidis Antigen Negative Group B Strep Antigen Negative Organism ID Not indicated. 09/12/18 09/13/18 09/13/18 20:16 05:37 06:30 WBC RBC Hgb Hct MCV MCH MCHC RDW Plt Count MPV Absolute Neuts (auto) Neutrophils % Lymphocytes % Monocytes % Eosinophils % Basophils % Nucleated RBC % PTT (Actin FS) 20.7 L Sodium Potassium Chloride Carbon Dioxide Anion Gap BUN Creatinine Creat Clearance w eGFR POC Glucometer 147 227 Random Glucose Calcium Phosphorus Magnesium Total Bilirubin AST ALT Alkaline Phosphatase Total Protein Albumin Fluid Culture H.influenzae Type B Ag N. meningitidis Antigen Group B Strep Antigen Organism ID 09/13/18 09/13/18 06:30 06:30 WBC 8.9 RBC 3.98 Hgb 10.4 L Hct 32.3 L MCV 81.3 MCH 26.3 MCHC 32.3 RDW 16.8 H Plt Count 183 D MPV 7.8 Absolute Neuts (auto) 6.7 Neutrophils % 75.6 Lymphocytes % 13.7 D Monocytes % 7.2 Eosinophils % 3.0 Basophils % 0.5 Nucleated RBC % 0 PTT (Actin FS) Sodium 140 Potassium 4.0 Chloride 109 H Carbon Dioxide 18 L Anion Gap 13 BUN 12 Creatinine 0.7 Creat Clearance w eGFR > 60 POC Glucometer Random Glucose 222 H Calcium 7.3 L Phosphorus 2.8 Magnesium 1.4 L Total Bilirubin 0.6 AST 32 ALT 35 Alkaline Phosphatase 64 Total Protein 4.8 L Albumin 1.5 L Fluid Culture H.influenzae Type B Ag N. meningitidis Antigen Group B Strep Antigen Organism ID Active Medications Generic Name Dose Route Start Last Admin Trade Name Freq PRN Reason Stop Dose Admin Buprenorphine/Naloxone 1 each 09/09/18 10:00 09/13/18 10:21 Suboxone 8mg/2mg Sl Film - SL Not Given DAILY YAMILKA Calcitriol 0.5 mcg 09/09/18 10:00 09/13/18 10:21 Rocaltrol - PO 0.5 mcg DAILY YAMILKA Administration Calcium Carbonate/Cholecalciferol 2 tab 09/09/18 10:00 09/13/18 10:21 Os-Willy 500+D - PO 2 tab BID YAMILKA Administration Hydroxyzine Pamoate 50 mg 09/10/18 20:57 09/12/18 21:35 Vistaril - PO 50 mg HS PRN Administration INSOMNIA Piperacillin Sod/Tazobactam 100 mls @ 200 mls/hr 09/12/18 15:00 09/13/18 10: 21 Sod 4.5 gm/ Dextrose IVPB 200 mls/hr Q8H-IV YAMILKA Administration Protocol Sodium Bicarbonate 50 meq/ 1,000 mls @ 100 mls/hr 09/12/18 17:54 09/13/18 04: 18 Dextrose/Sodium Chloride IV 100 mls/hr Q10H YAMILKA Administration Insulin Aspart 1 vial 09/09/18 07:00 09/13/18 06:20 Novolog Vial Sliding Scale - SQ 4 units ACHS YAMILKA Administration Protocol Magnesium Sulfate 2 gm 09/13/18 11:14 Magnesium Sulfate IVPB 09/13/18 11:15 ONCE ONE Pantoprazole Sodium 40 mg 09/09/18 10:30 09/13/18 10:21 Protonix Iv IVPUSH 40 mg BID YAMILKA Administration Potassium Phos/Sodium Phos 1 packet 09/12/18 10:00 09/13/18 10:21 Phos-Nak Packet - PO 09/15/18 09:59 1 packet DAILY YAMILKA Administration Sodium Bicarbonate 325 mg 09/12/18 10:00 09/13/18 10:21 Sodium Bicarbonate - PO 325 mg DAILY YAMILKA Administration Microbiology 09/11/18 10:00 Blood - Peripheral Venous Blood Culture - Preliminary NO GROWTH OBTAINED AFTER 48 HOURS, INCUBATION TO CONTINUE FOR 3 DAYS. 09/11/18 09:27 Blood - Peripheral Venous Blood Culture - Preliminary NO GROWTH OBTAINED AFTER 48 HOURS, INCUBATION TO CONTINUE FOR 3 DAYS. 09/10/18 18:50 Urine - Urine - Catheterized Urine Culture - Final NO GROWTH OBTAINED 09/06/18 17:22 Blood - Peripheral Venous Blood Culture - Final NO GROWTH AFTER 5 DAYS INCUBATION 09/06/18 17:22 Blood - Peripheral Venous Blood Culture - Final NO GROWTH AFTER 5 DAYS INCUBATION 09/09/18 18:30 Stool Gram Stain - Final 09/09/18 18:30 Stool Clostridium difficile Antigen (MISTI) - Final 09/09/18 18:30 Stool Clostridium difficile Toxin Assay - Final 09/06/18 23:57 Cerebral Spinal Fluid - Lumbar Puncture Gram Stain - Final 09/06/18 23:57 Cerebral Spinal Fluid - Lumbar Puncture CSF Culture - Final 09/06/18 16:04 Urine - Urine La Urine Culture - Final NO GROWTH OBTAINED 09/06/18 22:28 Cerebral Spinal Fluid - Lumbar Puncture Streptococcus pneumoniae Antigen (M - Final ASSESSMENT/PLAN: 58 yo F with PMHx of Gastric bypass (?2004), recurrent anemia, prior EGD/ colonoscopy in 05/2018 showing gastric ulcers at anastomotic site/Possible ischemic colitis, recent RLE DVT on eliquis, IDDM, HTN, chronic diarrhea, opioid dependence, brought to the ER with lethargy and anorexia. was recently prescribed percocet by per mural painter. She was prescribed 90 pills and there was only 10 remaining after 4 days -?Sigmoid microperforation in the setting of acute sigmoid diverticulitis vs colonic distension from prolonged opioid use -Suspected Intentional percocet Overdose (denies SI or suicidal attempt, reports for pain control) -ELLA, multifactorial from dehydration/rhabdomyolysis/acidosis -Anion gap metabolic acidosis -Rhabdomyolysis -Tachycardia -Acute toxic metabolic encephalopathy, multifactorial from above -Acute LUE cephalic vein thrombosis, limited visualization of remaining veins -Transaminitis, resolving -Diarrhea, from sigmoid diverticulitis vs ?opioid withdrawal, C difficile ruled out -Acute on chronic Normocytic anemia -Hyperkalemia -Hypophosphatemia -NIDDM -h/o gastric bypass -h/o DVT on eliquis -H/o gastric ulcers/ischemic colitis -HTN -Opioid dependence -Fever Plan: WBC normalized, abdominal exam improved. Surgery/GI/ID input noted. Zosyn day 2, NPO, IVF. Blood cx neg so far. Stool C difficile neg. Serial abdominal exams. s/p 1 unit PRBC on 09/11, appropriate response, monitor for now. Protonix IV BID FOBT pos. Extensive known h/o recurrent anemia requiring transfusions, also with EGD in 2017 with ulceration at anastomotic site, Colonscopy in 08/2018 with possible ischemic colitis. Heparin drip on hold pending active perforation concerns. Tylenol level/LFTs/Coags improved, Off NAC drip. Intermittent concerns for AMS, erratic behavior, known prior history. Psych input noted. For inpatient psych once improved. Repeat drug screen noted. ELLA resolved. Renal input noted. CPK improved. replete lytes prn. Mg IV. Psych input noted. Plan for inpatient psych once medial issues resolve. Detox input noted, not a candidate for percocet, Continue suboxone. ISS, diabetic diet. hold oral agents DVTPPX place on subq heparin for now till cleared for full dose AC. Dispo to inpatient psych pending resolution of medical concerns. Plan discussed with patient in detail, all questions answered. Visit type - Emergency Visit Emergency Visit: Yes ED Registration Date: 09/06/18 Care time: The patient presented to the Emergency Department on the above date and was hospitalized for further evaluation of their emergent condition. - New Patient This patient is new to me today: No - Critical Care Critical Care patient: No - Discharge Referral Referred to [facility] No
--- NOTE | 2018-09-13 12:34 | PN ---
Progress Note, Physician History of Present Illness: Pt with complicated history including lap gastric bypass, ischemic colitis and psychiatric issues, admitted with chronic diarrhea and RLQ pain, having not followed up as outpatient with GI after monthly hospitalizations since May. CT in followup to one from admission showed sigmoid inflammation and microperforation. CT report indicates there are a few diverticuli in region of this process, though there had also been ulcers noted in sigmoid on last endoscopy with active colitis, last month. On discussion with radiologist, he also indicated there was probably mild sigmoid inflammation and tiny locules of air present on admission CT as well, which had not been noted in report. Pt is NPO except meds with sips and occasional ice chips, but is begging for a cup of tea. She reports feeling a little better, and her pain is less than yesterday. She has been OOB at times and will be up today when visitors arrive. No acute events overnight. - Current Medication List Current Medications: Active Medications Buprenorphine/Naloxone (Suboxone 8mg/2mg Sl Film -) 1 each SL DAILY [facility] Last Admin: 09/13/18 10:21 Dose: Not Given Calcitriol (Rocaltrol -) 0.5 mcg PO DAILY [facility] Last Admin: 09/13/18 10:21 Dose: 0.5 mcg Calcium Carbonate/Cholecalciferol (Os-Willy 500+D -) 2 tab PO BID [facility] Last Admin: 09/13/18 10:21 Dose: 2 tab Heparin Sodium (Porcine) (Heparin -) 5,000 unit SQ TID [facility] Hydroxyzine Pamoate (Vistaril -) 50 mg PO HS PRN PRN Reason: INSOMNIA Last Admin: 09/12/18 21:35 Dose: 50 mg Piperacillin Sod/Tazobactam (Sod 4.5 gm/ Dextrose) 100 mls @ 200 mls/hr IVPB Q8H-IV [facility]; Protocol Last Admin: 09/13/18 10:21 Dose: 200 mls/hr Sodium Bicarbonate 50 meq/ (Dextrose/Sodium Chloride) 1,000 mls @ 100 mls/hr IV Q10H [facility] Last Admin: 09/13/18 04:18 Dose: 100 mls/hr Insulin Aspart (Novolog Vial Sliding Scale -) 1 vial SQ ACHS [facility]; Protocol Last Admin: 09/13/18 12:06 Dose: 2 units Pantoprazole Sodium (Protonix Iv) 40 mg IVPUSH BID [facility] Last Admin: 09/13/18 10:21 Dose: 40 mg Potassium Phos/Sodium Phos (Phos-Nak Packet -) 1 packet PO DAILY [facility] Stop: 09/15/18 09:59 Last Admin: 09/13/18 10:21 Dose: 1 packet Sodium Bicarbonate (Sodium Bicarbonate -) 325 mg PO DAILY [facility] Last Admin: 09/13/18 10:21 Dose: 325 mg - Objective Vital Signs: Vital Signs Temperature 98.1 F 09/13/18 10:00 Pulse Rate 99 H 09/13/18 10:00 Respiratory Rate 20 09/13/18 10:00 Blood Pressure 116/61 09/13/18 10:00 O2 Sat by Pulse Oximetry (%) 98 09/13/18 09:00 Constitutional: Yes: No Distress, Calm, Obese Eyes: Yes: Conjunctiva Clear, EOM Intact HENT: Yes: Atraumatic, Normocephalic Gastrointestinal: Yes: Soft, Abdomen, Obese, Tenderness (LLQ more than suprapubic, less in RLQ and LUQ - all a bit less than yesterday). No: Tenderness, Epigastrium, Tenderness, Rebound ...Rectal Exam: Yes: Deferred Musculoskeletal: Yes: Joint Stiffness (left shoulder) Extremities: No: Cool, Cyanosis Integumentary: No: Jaundice, Rash Neurological: Yes: Alert, Oriented Psychiatric: Yes: Alert, Oriented. No: Agitated Labs: CBC, BMP 09/13/18 06:30 09/13/18 06:30 wbc normal, down from 11 from 14 CO2 low but stable H/H stable, up from 9.3 - ....Imaging Cat Scan: Report Reviewed Problem List - Problems (1) Perforation of sigmoid colon Assessment/Plan: microperforation of sigmoid colon, may well be from diverticulitis, though could also be related to known ischemic colitis and sigmoid ulceration noted by GI on last scope 08/18 per radiology, this finding was likely present on admission CT as well but not noted at the time pt has been noncompliant with outpatient followup each of last 3 months regarding workup and treatment for chronic diarrhea and ischemic colitis, following hospitalizations IV antibiotics as per ID encourage OOB to chair and some ambulation as possible with assistance or PT GI following continue NPO except meds and IVF, occ ice chips; pt may have one cup of decaf tea today if pain/tenderness further decreased tomorrow, would consider resuming clears and advancing to diabetic bariatric diet as tolerated with plan to complete antibiotic course po when tolerating and as per ID once tolerating po diet without increase in pain or clinical signs of gross perforation or worsening, will be able to resume full anticoagulation discussed with patient that if surgery were needed emergently for gross perforation/free air, laparotomy would likely include possible bowel resection and colostomy; she would understandably prefer to avoid operation if possible pt is high risk for operative and wound complications secondary to morbid obesity, diabetes, hypoalbuminemia, anticoagulated state, among other comorbidities GI consult noted will follow with you Code(s): K63.1 - PERFORATION OF INTESTINE (NONTRAUMATIC) (2) Chronic ischemic colitis Code(s): K55.1 - CHRONIC VASCULAR DISORDERS OF INTESTINE (3) Chronic diarrhea Code(s): K52.9 - NONINFECTIVE GASTROENTERITIS AND COLITIS, UNSPECIFIED (4) RLQ abdominal pain Code(s): R10.31 - RIGHT LOWER QUADRANT PAIN (5) Morbid obesity Assessment/Plan: s/p lap gastric bypass 2008 and subsequent abdominoplasty pt does not follow with her bariatric surgeon ([facility]) "because it was a bad result " Code(s): E66.01 - MORBID (SEVERE) OBESITY DUE TO EXCESS CALORIES (6) Acetaminophen toxicity Code(s): T39.1X1A - POISONING BY 4-AMINOPHENOL DERIVATIVES, ACCIDENTAL, INIT Qualifiers: Encounter type: initial encounter Injury intent: intentional self-harm Qualified Code(s): T39.1X2A - Poisoning by 4-Aminophenol derivatives, intentional self-harm, initial encounter (7) Opioid abuse Assessment/Plan: plan for inpatient psych transfer when medically stable noted Code(s): F11.10 - OPIOID ABUSE, UNCOMPLICATED (8) Personal history of other venous thrombosis and embolism Assessment/Plan: heparin drip currently on hold Code(s): Z86.718 - PERSONAL HISTORY OF OTHER VENOUS THROMBOSIS AND EMBOLISM (9) Diabetes mellitus type 2, insulin dependent Code(s): E11.9 - TYPE 2 DIABETES MELLITUS WITHOUT COMPLICATIONS; Z79.4 - [employer] (CURRENT) USE OF INSULIN
[2018-09-13] MEDS: HEPARIN NA (PORCINE) 5,000 UNITS/ML 1ML VIAL SQ SCH ×2 (13:53→21:09)
--- NOTE | 2018-09-13 15:38 | PN ---
Progress Note, Physician History of Present Illness: Pt states she feels better than yesterday. She has less abdominal pain, and is having BMs. Has no specific complaints. - Current Medication List Current Medications: Active Medications Buprenorphine/Naloxone (Suboxone 8mg/2mg Sl Film -) 1 each SL DAILY [facility] Last Admin: 09/13/18 10:21 Dose: Not Given Calcitriol (Rocaltrol -) 0.5 mcg PO DAILY [facility] Last Admin: 09/13/18 10:21 Dose: 0.5 mcg Calcium Carbonate/Cholecalciferol (Os-Willy 500+D -) 2 tab PO BID [facility] Last Admin: 09/13/18 10:21 Dose: 2 tab Heparin Sodium (Porcine) (Heparin -) 5,000 unit SQ TID [facility] Last Admin: 09/13/18 13:53 Dose: 5,000 unit Hydroxyzine Pamoate (Vistaril -) 50 mg PO HS PRN PRN Reason: INSOMNIA Last Admin: 09/12/18 21:35 Dose: 50 mg Piperacillin Sod/Tazobactam (Sod 4.5 gm/ Dextrose) 100 mls @ 200 mls/hr IVPB Q8H-IV [facility]; Protocol Last Admin: 09/13/18 10:21 Dose: 200 mls/hr Sodium Bicarbonate 50 meq/ (Dextrose/Sodium Chloride) 1,000 mls @ 100 mls/hr IV Q10H [facility] Last Admin: 09/13/18 13:53 Dose: 100 mls/hr Insulin Aspart (Novolog Vial Sliding Scale -) 1 vial SQ ACHS [facility]; Protocol Last Admin: 09/13/18 12:06 Dose: 2 units Pantoprazole Sodium (Protonix Iv) 40 mg IVPUSH BID [facility] Last Admin: 09/13/18 10:21 Dose: 40 mg Potassium Phos/Sodium Phos (Phos-Nak Packet -) 1 packet PO DAILY [facility] Stop: 09/15/18 09:59 Last Admin: 09/13/18 10:21 Dose: 1 packet Sodium Bicarbonate (Sodium Bicarbonate -) 325 mg PO DAILY [facility] Last Admin: 09/13/18 10:21 Dose: 325 mg - Objective Vital Signs: Vital Signs Temperature 99.3 F 09/13/18 14:00 Pulse Rate 101 H 09/13/18 14:00 Respiratory Rate 18 09/13/18 14:00 Blood Pressure 134/62 09/13/18 14:00 O2 Sat by Pulse Oximetry (%) 98 09/13/18 09:00 Constitutional: Yes: No Distress, Calm Cardiovascular: Yes: Regular Rate and Rhythm Respiratory: Yes: CTA Bilaterally Gastrointestinal: Yes: Normal Bowel Sounds, Soft Genitourinary: Yes: WNL Edema: No Neurological: Yes: Alert, Oriented Labs: CBC, BMP 09/13/18 06:30 09/13/18 06:30 INR, PTT INR 1.50 (0.83-1.09) H 09/12/18 08:39 Problem List - Problems (1) ARF (acute renal failure) Code(s): N17.9 - ACUTE KIDNEY FAILURE, UNSPECIFIED Qualifiers: Acute renal failure type: unspecified Qualified Code(s): N17.9 - Acute kidney failure, unspecified (2) Abdominal pain Code(s): R10.9 - UNSPECIFIED ABDOMINAL PAIN (3) Depression, major, severe recurrence Code(s): F33.2 - MAJOR DEPRESSV DISORDER, RECURRENT SEVERE W/O PSYCH FEATURES (4) Fever Code(s): R50.9 - FEVER, UNSPECIFIED Qualifiers: Fever type: unspecified Qualified Code(s): R50.9 - Fever, unspecified (5) Rhabdomyolysis Code(s): M62.82 - RHABDOMYOLYSIS Qualifiers: Rhabdomyolysis type: non-traumatic Qualified Code(s): M62.82 - Rhabdomyolysis (6) Sepsis Code(s): A41.9 - SEPSIS, UNSPECIFIED ORGANISM Qualifiers: Sepsis type: sepsis due to unspecified organism Qualified Code(s): A41.9 - Sepsis, unspecified organism (7) DVT (deep venous thrombosis) Code(s): I82.409 - ACUTE EMBOLISM AND THOMBOS UNSP DEEP VN UNSP LOWER EXTREMITY (8) Anemia Code(s): D64.9 - ANEMIA, UNSPECIFIED Qualifiers: Anemia type: unspecified type Qualified Code(s): D64.9 - Anemia, unspecified (9) Chronic diarrhea Code(s): K52.9 - NONINFECTIVE GASTROENTERITIS AND COLITIS, UNSPECIFIED (10) Diabetes Code(s): E11.9 - TYPE 2 DIABETES MELLITUS WITHOUT COMPLICATIONS (11) Opioid abuse Code(s): F11.10 - OPIOID ABUSE, UNCOMPLICATED (12) Leukocytosis Code(s): D72.829 - ELEVATED WHITE BLOOD CELL COUNT, UNSPECIFIED Assessment/Plan Sigmoid microperforation, Hx of ischemic colitis/sigmoid ulcers Sepsis Fever Leukocytosis Chronic diarrhea - CDT neg LUE cephalic vein thrombosis Opiod dependence -- continue Zosyn -- wbc now normal, Temp currently 99.3F, less abd pain -- latest blood cultures no growth/Urine Culture neg -- surgery following
--- NOTE | 2018-09-13 17:28 | PN ---
Progress Note, Physician Chief Complaint: Covering for Dr. Bolanos Pt states she has some intermittent back pain and her abdominal pain is the same - it has not worsened or improved. History of Present Illness: No new complaints still with some left sided lower abdominal pain, no fever/ chills/ nausea or vomiting - Current Medication List Current Medications: Active Medications Buprenorphine/Naloxone (Suboxone 8mg/2mg Sl Film -) 1 each SL DAILY [facility] Last Admin: 09/13/18 10:21 Dose: Not Given Calcitriol (Rocaltrol -) 0.5 mcg PO DAILY [facility] Last Admin: 09/13/18 10:21 Dose: 0.5 mcg Calcium Carbonate/Cholecalciferol (Os-Willy 500+D -) 2 tab PO BID [facility] Last Admin: 09/13/18 10:21 Dose: 2 tab Heparin Sodium (Porcine) (Heparin -) 5,000 unit SQ TID [facility] Last Admin: 09/13/18 13:53 Dose: 5,000 unit Hydroxyzine Pamoate (Vistaril -) 50 mg PO HS PRN PRN Reason: INSOMNIA Last Admin: 09/12/18 21:35 Dose: 50 mg Piperacillin Sod/Tazobactam (Sod 4.5 gm/ Dextrose) 100 mls @ 200 mls/hr IVPB Q8H-IV [facility]; Protocol Last Admin: 09/13/18 10:21 Dose: 200 mls/hr Sodium Bicarbonate 50 meq/ (Dextrose/Sodium Chloride) 1,000 mls @ 100 mls/hr IV Q10H [facility] Last Admin: 09/13/18 13:53 Dose: 100 mls/hr Insulin Aspart (Novolog Vial Sliding Scale -) 1 vial SQ ACHS [facility]; Protocol Last Admin: 09/13/18 16:54 Dose: Not Given Pantoprazole Sodium (Protonix Iv) 40 mg IVPUSH BID [facility] Last Admin: 09/13/18 10:21 Dose: 40 mg Potassium Phos/Sodium Phos (Phos-Nak Packet -) 1 packet PO DAILY [facility] Stop: 09/15/18 09:59 Last Admin: 09/13/18 10:21 Dose: 1 packet Sodium Bicarbonate (Sodium Bicarbonate -) 325 mg PO DAILY [facility] Last Admin: 09/13/18 10:21 Dose: 325 mg - Objective Vital Signs: Vital Signs Temperature 99.3 F 09/13/18 14:00 Pulse Rate 101 H 09/13/18 14:00 Respiratory Rate 18 09/13/18 14:00 Blood Pressure 134/62 09/13/18 14:00 O2 Sat by Pulse Oximetry (%) 98 09/13/18 09:00 Constitutional: Yes: Well Nourished Eyes: Yes: WNL HENT: Yes: WNL Neck: Yes: WNL Cardiovascular: Yes: WNL, Regular Rate and Rhythm Respiratory: Yes: WNL, Regular (tender to deep palpation in the), CTA Bilaterally, Other (tender LLQ to deep palpation , no rebound or guarding) Gastrointestinal: Yes: Other Musculoskeletal: Yes: WNL Extremities: Yes: WNL Edema: No Labs: CBC, BMP 09/13/18 06:30 09/13/18 06:30 INR, PTT INR 1.50 (0.83-1.09) H 09/12/18 08:39 Problem List - Problems (1) Abdominal pain Assessment/Plan: NPO / IVF's abx surgery f/u noted Code(s): R10.9 - UNSPECIFIED ABDOMINAL PAIN (2) Fever Code(s): R50.9 - FEVER, UNSPECIFIED Qualifiers: Fever type: unspecified Qualified Code(s): R50.9 - Fever, unspecified
[2018-09-13] MEDS ORDERED: METHYL SALICYLATE/MENTHOL OINT 30 GM TUBE TP ONE (18:09)
[2018-09-13] MEDS: hydrOXYzine PAMOATE 50 MG CAPSULE (FP) PO PRN (21:10)
[2018-09-13] MEDS ORDERED: diphenhydrAMINE HCL 25 MG CAPSULE (FP) PO ONE (22:28)
[2018-09-14] MEDS ORDERED: DEXTROSE 5%-WATER 100 ML IVPB ONE ×3 (00:19→16:59)
[2018-09-14] MEDS ORDERED: PIPERACILLIN/TAZOBACTAM 4.5 GM VIAL IVPB ONE ×3 (00:19→16:59)
[2018-09-14] MEDS: PIPERACILLIN/TAZOB 4.5 GM 4.5 GM in DEXTROSE 5%-WATER 100 ML IVPB SCH ×3 (01:52→17:18)
[2018-09-14] MEDS: SODIUM BICARBONATE 8.4% - 50 MEQ in DEXTROSE 5%-0.45% SALINE 950 ML IV SCH ×2 (05:55→10:11)
[2018-09-14] MEDS: HEPARIN NA (PORCINE) 5,000 UNITS/ML 1ML VIAL SQ SCH ×3 (06:03→22:11)
[2018-09-14] MEDS: INSULIN SLIDING SCALE (NOVOLOG) 1 VIAL SQ SCH ×4 (06:03→22:11)
[2018-09-14 07:33] LABS: BASO % 0.7 % (0-2.0); EOS % 3.2 % (0-4.5); HEMATOCRIT 27.9 % (32.4-45.2); LYMPH % 19.2 % (8-40); MCH 25.9 pg (25.7-33.7); MCHC 32.4 g/dl (32.0-36.0); MEAN PLT VOLUME 7.5 fl (7.5-11.1); MONO % 9.9 % (3.8-10.2); PLATELET COUNT 325 K/MM3 (134-434); RBC 3.49 M/mm3 (3.60-5.2); WHITE BLOOD COUNT 6.9 K/mm3 (4.0-10.0)
[2018-09-14 08:09] LABS: INR 1.45 (0.83-1.09); PROTHROMBIN TIME (PATIENT) 17.2 SEC (9.7-13.0)
--- NOTE | 2018-09-14 08:22 | PN ---
Teaching Attending Note Name of Resident: Odette Garcia ATTENDING PHYSICIAN STATEMENT I saw and evaluated the patient. I reviewed the resident's note and discussed the case with the resident. I agree with the resident's findings and plan as documented with exceptions below. SUBJECTIVE: Patient seen and examined. No further diarrhea. Denies any nausea, vomiting. Abdominal pain markedly improved, awake and appropriate. OBJECTIVE: Vital Signs Period Temp Pulse Resp BP Sys/Funes Pulse Ox Last 24 Hr 98.0 F-99.3 F 90-101 18-20 116-137/56-70 98-98 Intake & Output 09/11/18 09/12/18 09/13/18 09/14/18 23:59 23:59 23:59 23:59 Intake Total 854 1950 2370 800 Output Total 650 750 Balance 204 1200 2370 800 Weight 177 lb 12.8 oz General: sitting in bed in no acute distress Chest: no rales or wheezing Abdomen:soft, obese, minimal LLQ tenderness, markedly improved exam, no voluntary or involuntary guarding or rigidity, positive bowel sounds Extremities: no edema Active Medications Buprenorphine/Naloxone (Suboxone 8mg/2mg Sl Film -) 1 each SL DAILY [facility] Last Admin: 09/13/18 10:21 Dose: Not Given Calcitriol (Rocaltrol -) 0.5 mcg PO DAILY [facility] Last Admin: 09/13/18 10:21 Dose: 0.5 mcg Calcium Carbonate/Cholecalciferol (Os-Willy 500+D -) 2 tab PO BID [facility] Last Admin: 09/13/18 21:09 Dose: 2 tab Heparin Sodium (Porcine) (Heparin -) 5,000 unit SQ TID [facility] Last Admin: 09/14/18 06:03 Dose: 5,000 unit Hydroxyzine Pamoate (Vistaril -) 50 mg PO HS PRN PRN Reason: INSOMNIA Last Admin: 09/13/18 21:10 Dose: 50 mg Piperacillin Sod/Tazobactam (Sod 4.5 gm/ Dextrose) 100 mls @ 200 mls/hr IVPB Q8H-IV [facility]; Protocol Last Admin: 09/14/18 01:52 Dose: 200 mls/hr Sodium Bicarbonate 50 meq/ (Dextrose/Sodium Chloride) 1,000 mls @ 100 mls/hr IV Q10H [facility] Last Admin: 09/14/18 05:55 Dose: 100 mls/hr Insulin Aspart (Novolog Vial Sliding Scale -) 1 vial SQ ACHS [facility]; Protocol Last Admin: 09/14/18 06:03 Dose: 4 units Pantoprazole Sodium (Protonix Iv) 40 mg IVPUSH BID [facility] Last Admin: 09/13/18 21:10 Dose: 40 mg Potassium Phos/Sodium Phos (Phos-Nak Packet -) 1 packet PO DAILY [facility] Stop: 09/15/18 09:59 Last Admin: 09/13/18 10:21 Dose: 1 packet Sodium Bicarbonate (Sodium Bicarbonate -) 325 mg PO DAILY [facility] Last Admin: 09/13/18 10:21 Dose: 325 mg ASSESSMENT AND PLAN: 58 yo F with PMHx of Gastric bypass (?2004), recurrent anemia, prior EGD/ colonoscopy in 05/2018 showing gastric ulcers at anastomotic site/Possible ischemic colitis, recent RLE DVT on eliquis, IDDM, HTN, chronic diarrhea, opioid dependence, brought to the ER with lethargy and anorexia. 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 She was prescribed 90 pills and there was only 10 remaining after 4 days -Sigmoid microperforation in the setting of acute sigmoid diverticulitis vs colonic distension from prolonged opioid use -Suspected Intentional percocet Overdose (denies SI or suicidal attempt, reports for pain control) -ELLA, multifactorial from dehydration/rhabdomyolysis/acidosis -Acetaminophen toxicity s/p NAC drip -Anion gap metabolic acidosis -Rhabdomyolysis -Tachycardia -Acute toxic metabolic encephalopathy, multifactorial from above -Acute LUE cephalic vein thrombosis, limited visualization of remaining veins -Transaminitis, resolving -Acute on chronic Normocytic anemia -Hyperkalemia -Hypophosphatemia -NIDDM -h/o gastric bypass -h/o DVT on eliquis -H/o gastric ulcers/ischemic colitis -HTN -Opioid dependence -Fever Plan: WBC normalized, abdominal exam improved. Surgery/GI/ID input noted. Zosyn day 3, adance to PO clears, IVF. Blood cx neg so far. Stool C difficile neg. Serial abdominal exams. s/p 1 unit PRBC on 09/11, appropriate response, h/h drifting down, monitor for now. Protonix IV BID FOBT pos. Extensive known h/o recurrent anemia requiring transfusions, also with EGD in 2017 with ulceration at anastomotic site, Colonscopy in 08/2018 with possible ischemic colitis. Gi input noted. Heparin drip on hold pending active perforation concerns. Tylenol level/LFTs/Coags improved, Off NAC drip. Intermittent concerns for AMS, erratic behavior, known prior history. Psych input noted. For inpatient psych once improved. Repeat drug screen noted. ELLA resolved. Renal input noted. off bicarb drip. CPK improved. replete k/Mg. Psych input noted. Plan for inpatient psych once medial issues resolve. Detox input noted, not a candidate for percocet, Continue suboxone. ISS, diabetic diet. hold oral agents DVTPPX place on subq heparin for now till cleared for full dose AC. Dispo to inpatient psych pending resolution of medical concerns. Plan discussed with patient in detail, all questions answered.
[2018-09-14 08:23] LABS: ALBUMIN 1.4 g/dl (3.4-5.0); ALK PHOS 53 U/L (45-117); ANION GAP 7 MMOL/L (8-16); BILIRUBIN,TOTAL 0.4 mg/dL (0.2-1); BLOOD UREA NITROGEN 6 mg/dL (7-18); CALCIUM 7.1 mg/dL (8.5-10.1); CHLORIDE 108 mmol/L (98-107); CO2 24 mmol/L (21-32); CREATININE 0.6 mg/dL (0.55-1.3); GLUCOSE,RANDOM 205 mg/dL (74-106); MAGNESIUM 1.4 mg/dL (1.8-2.4); PHOSPHOROUS 2.6 mg/dL (2.5-4.9); POTASSIUM 3.2 mmol/L (3.5-5.1); SGOT/AST 18 U/L (15-37); SGPT/ALT 27 U/L (13-61); SODIUM 139 mmol/L (136-145); TOT PROT 4.4 g/dl (6.4-8.2)
[2018-09-14] MEDS ORDERED: PT OWN MED DRAWER 7, Y5N ONE ×3 (10:08→22:14)
[2018-09-14] MEDS: CALCIUM 500MG/VIT-D 200 UNITS COMBO TABLET (FP) PO SCH ×2 (10:11→22:11)
[2018-09-14] MEDS: BUPRENORPHINE/NALOXONE 8 MG/2 MG FILM PACKET SL SCH (10:12)
[2018-09-14] MEDS: CALCITRIOL 0.25 MCG CAPSULE (FP) PO SCH (10:12)
[2018-09-14] MEDS: PANTOPRAZOLE SODIUM 40 MG VIAL IVPUSH SCH ×2 (10:13→22:12)
[2018-09-14] MEDS: SODIUM BICARBONATE 325 MG TABLET PO SCH (10:13)
[2018-09-14] MEDS: NAPH,MB-DB/K PH,MBDB POWDER PACKET PO SCH (10:21)
[2018-09-14] MEDS ORDERED: POTASSIUM CHLORIDE ORAL LIQUID 20 MEQ/15 ML PO ONE (10:33)
--- NOTE | 2018-09-14 11:15 | PN ---
Progress Note, Physician History of Present Illness: Pt seen and examine at bedside. She is awake and alert. She still has diarrhea. She denies shortness of breath. - Current Medication List Current Medications: Active Medications Buprenorphine/Naloxone (Suboxone 8mg/2mg Sl Film -) 1 each SL DAILY [facility] Last Admin: 09/14/18 10:12 Dose: Not Given Calcitriol (Rocaltrol -) 0.5 mcg PO DAILY [facility] Last Admin: 09/14/18 10:12 Dose: 0.5 mcg Calcium Carbonate/Cholecalciferol (Os-Willy 500+D -) 2 tab PO BID [facility] Last Admin: 09/14/18 10:11 Dose: 2 tab Heparin Sodium (Porcine) (Heparin -) 5,000 unit SQ TID [facility] Last Admin: 09/14/18 06:03 Dose: 5,000 unit Hydroxyzine Pamoate (Vistaril -) 50 mg PO HS PRN PRN Reason: INSOMNIA Last Admin: 09/13/18 21:10 Dose: 50 mg Piperacillin Sod/Tazobactam (Sod 4.5 gm/ Dextrose) 100 mls @ 200 mls/hr IVPB Q8H-IV [facility]; Protocol Last Admin: 09/14/18 10:10 Dose: 200 mls/hr Sodium Bicarbonate 50 meq/ (Dextrose/Sodium Chloride) 1,000 mls @ 100 mls/hr IV Q10H [facility] Last Admin: 09/14/18 10:11 Dose: 100 mls/hr Insulin Aspart (Novolog Vial Sliding Scale -) 1 vial SQ ACHS [facility]; Protocol Last Admin: 09/14/18 06:03 Dose: 4 units Pantoprazole Sodium (Protonix Iv) 40 mg IVPUSH BID [facility] Last Admin: 09/14/18 10:13 Dose: 40 mg Potassium Chloride (Potassium Chloride Oral Liquid) 40 meq PO ONCE ONE Stop: 09/14/18 10:34 Potassium Phos/Sodium Phos (Phos-Nak Packet -) 1 packet PO DAILY [facility] Stop: 09/15/18 09:59 Last Admin: 09/14/18 10:21 Dose: Not Given Sodium Bicarbonate (Sodium Bicarbonate -) 325 mg PO DAILY [facility] Last Admin: 09/14/18 10:13 Dose: 325 mg - Objective Vital Signs: Vital Signs Temperature 98.1 F 09/14/18 08:57 Pulse Rate 100 H 09/14/18 08:57 Respiratory Rate 20 09/14/18 09:00 Blood Pressure 132/67 09/14/18 08:57 O2 Sat by Pulse Oximetry (%) 98 09/14/18 09:00 Constitutional: Yes: Calm Eyes: Yes: Conjunctiva Clear HENT: Yes: Atraumatic Cardiovascular: Yes: S1, S2 Respiratory: Yes: CTA Bilaterally Gastrointestinal: Yes: Soft Genitourinary: Yes: WNL Extremities: Yes: WNL Edema: Yes Edema: LLE: Trace, RLE: Trace Neurological: Yes: Oriented Psychiatric: Yes: Oriented Labs: CBC, BMP 09/14/18 06:00 09/14/18 06:00 INR, PTT INR 1.45 (0.83-1.09) H 09/14/18 06:00 Problem List - Problems (1) ARF (acute renal failure) Code(s): N17.9 - ACUTE KIDNEY FAILURE, UNSPECIFIED Qualifiers: Acute renal failure type: unspecified Qualified Code(s): N17.9 - Acute kidney failure, unspecified (2) Acetaminophen toxicity Code(s): T39.1X1A - POISONING BY 4-AMINOPHENOL DERIVATIVES, ACCIDENTAL, INIT Qualifiers: Encounter type: initial encounter Injury intent: intentional self-harm Qualified Code(s): T39.1X2A - Poisoning by 4-Aminophenol derivatives, intentional self-harm, initial encounter (3) Fever Code(s): R50.9 - FEVER, UNSPECIFIED Qualifiers: Fever type: unspecified Qualified Code(s): R50.9 - Fever, unspecified (4) Hyperkalemia Code(s): E87.5 - HYPERKALEMIA (5) Rhabdomyolysis Code(s): M62.82 - RHABDOMYOLYSIS Qualifiers: Rhabdomyolysis type: non-traumatic Qualified Code(s): M62.82 - Rhabdomyolysis Assessment/Plan Current Medications Generic Name Dose Route Start Last Admin Trade Name Freq PRN Reason Stop Dose Admin Buprenorphine/Naloxone 1 each 09/09/18 10:00 09/14/18 10:12 Suboxone 8mg/2mg Sl Film - SL Not Given DAILY [facility] Calcitriol 0.5 mcg 09/09/18 10:00 09/14/18 10:12 Rocaltrol - PO 0.5 mcg DAILY [facility] Administration Calcium Carbonate/Cholecalciferol 2 tab 09/09/18 10:00 09/14/18 10:11 Os-Willy 500+D - PO 2 tab BID [facility] Administration Heparin Sodium (Porcine) 5,000 unit 09/13/18 14:00 09/14/18 06:03 Heparin - SQ 5,000 unit TID [facility] Administration Hydroxyzine Pamoate 50 mg 09/10/18 20:57 09/13/18 21:10 Vistaril - PO 50 mg HS PRN Administration INSOMNIA Piperacillin Sod/Tazobactam 100 mls @ 200 mls/hr 09/12/18 15:00 09/14/18 10: 10 Sod 4.5 gm/ Dextrose IVPB 200 mls/hr Q8H-IV [facility] Administration Protocol Sodium Bicarbonate 50 meq/ 1,000 mls @ 100 mls/hr 09/12/18 17:54 09/14/18 10: 11 Dextrose/Sodium Chloride IV 100 mls/hr Q10H [facility] Administration Insulin Aspart 1 vial 09/09/18 07:00 09/14/18 06:03 Novolog Vial Sliding Scale - SQ 4 units ACHS [facility] Administration Protocol Pantoprazole Sodium 40 mg 09/09/18 10:30 09/14/18 10:13 Protonix Iv IVPUSH 40 mg BID [facility] Administration Potassium Chloride 40 meq 09/14/18 10:33 Potassium Chloride Oral Liquid PO 09/14/18 10:34 ONCE ONE Potassium Phos/Sodium Phos 1 packet 09/12/18 10:00 09/14/18 10:21 Phos-Nak Packet - PO 09/15/18 09:59 Not Given DAILY [facility] Sodium Bicarbonate 325 mg 09/12/18 10:00 09/14/18 10:13 Sodium Bicarbonate - PO 325 mg DAILY [facility] Administration Laboratory Tests 09/14/18 06:00 Potassium 3.2 L Magnesium 1.4 L Impression 1. ELLA 2. hyperkalemia 3. drug overdose 4. tylenol toxicity 5. rhabdo 6. opioid dependence 7. microscopic hematuria 8. anemia 9. HTN 10. DM 11. hypocalcemia 12. malnutrition Plan - renal function is improving - stop bicarb drip - change fluids to 1/2 ns at 42 cc - repeat labs in am - replace mag IV as she has diarrhea - replace potassium - will follow Dr Calderón
[2018-09-14] MEDS ORDERED: MAGNESIUM SULF 50% (8.12 MEQ/2 ML-1 GM VIAL) IVPB ONE (12:15)
[2018-09-14] MEDS ORDERED: KCL 10 MEQ IVPB 10 MEQ/100 ML INFUS.BAG IVPB SCH (12:15)
[2018-09-14] MEDS: SODIUM CHLORIDE 0.45% 1,000 ML IV SCH (13:13)
--- NOTE | 2018-09-14 15:32 | PN ---
Physical Exam: SUBJECTIVE: Patient seen and examined at bedside this morning. No acute events overnight. Patient reports watery diarrhea after having clear liquids during lunch time. Otherwise, she has no complaints of abdominal pain, nausea or vomiting. OBJECTIVE: Vital Signs Period Temp Pulse Resp BP Sys/Funes Pulse Ox Last 24 Hr 98.0 F-99.0 F 90-100 18-20 127-137/56-70 98-98 GENERAL: The patient is awake, alert, and oriented, in no acute distress. HEAD: Normal with no signs of trauma. EYES: PERRLA, EOMI, sclera anicteric, conjunctiva clear. NECK: Trachea midline, full range of motion, supple. LUNGS: Breath sounds equal, clear to auscultation bilaterally. HEART: Regular rate and rhythm, S1, S2 without murmur, rub or gallop. ABDOMEN: soft, no tenderness, nondistended, NABS, no guarding. EXTREMITIES: 2+ pulses, warm, well-perfused, no edema. SKIN: Warm, dry, normal turgor, no rashes or lesions noted Laboratory Results - last 24 hr 09/10/18 09/13/18 09/13/18 08:20 16:52 20:13 WBC RBC Hgb Hct MCV MCH MCHC RDW Plt Count MPV Absolute Neuts (auto) Neutrophils % Lymphocytes % Monocytes % Eosinophils % Basophils % Nucleated RBC % PT with INR INR PTT (Actin FS) Sodium Potassium Chloride Carbon Dioxide Anion Gap BUN Creatinine Creat Clearance w eGFR POC Glucometer 128 165 Random Glucose Calcium Phosphorus Magnesium Total Bilirubin AST ALT Alkaline Phosphatase Total Protein Albumin Blood Type O POSITIVE Antibody Screen Positive H Antibody Identification Anti-K Crossmatch See Detail 09/14/18 09/14/18 09/14/18 05:27 06:00 06:00 WBC 6.9 RBC 3.49 L Hgb 9.0 L Hct 27.9 L MCV 80.0 MCH 25.9 MCHC 32.4 RDW 17.0 H Plt Count 325 D MPV 7.5 Absolute Neuts (auto) 4.6 Neutrophils % 67.0 Lymphocytes % 19.2 D Monocytes % 9.9 Eosinophils % 3.2 Basophils % 0.7 Nucleated RBC % 0 PT with INR INR PTT (Actin FS) 26.9 Sodium Potassium Chloride Carbon Dioxide Anion Gap BUN Creatinine Creat Clearance w eGFR POC Glucometer 202 Random Glucose Calcium Phosphorus Magnesium Total Bilirubin AST ALT Alkaline Phosphatase Total Protein Albumin Blood Type Antibody Screen Antibody Identification Crossmatch 09/14/18 09/14/18 09/14/18 06:00 06:00 11:36 WBC RBC Hgb Hct MCV MCH MCHC RDW Plt Count MPV Absolute Neuts (auto) Neutrophils % Lymphocytes % Monocytes % Eosinophils % Basophils % Nucleated RBC % PT with INR 17.20 H INR 1.45 H PTT (Actin FS) Sodium 139 Potassium 3.2 L Chloride 108 H Carbon Dioxide 24 Anion Gap 7 L BUN 6 L Creatinine 0.6 Creat Clearance w eGFR > 60 POC Glucometer 173 Random Glucose 205 H Calcium 7.1 L Phosphorus 2.6 Magnesium 1.4 L Total Bilirubin 0.4 AST 18 ALT 27 Alkaline Phosphatase 53 Total Protein 4.4 L Albumin 1.4 L Blood Type Antibody Screen Antibody Identification Crossmatch Active Medications Generic Name Dose Route Start Last Admin Trade Name Freq PRN Reason Stop Dose Admin Buprenorphine/Naloxone 1 each 09/09/18 10:00 09/14/18 10:12 Suboxone 8mg/2mg Sl Film - SL Not Given DAILY YAMILKA Calcitriol 0.5 mcg 09/09/18 10:00 09/14/18 10:12 Rocaltrol - PO 0.5 mcg DAILY YAMILKA Administration Calcium Carbonate/Cholecalciferol 2 tab 09/09/18 10:00 09/14/18 10:11 Os-Willy 500+D - PO 2 tab BID YAMILKA Administration Heparin Sodium (Porcine) 5,000 unit 09/13/18 14:00 09/14/18 13:21 Heparin - SQ 5,000 unit TID YAMILKA Administration Hydroxyzine Pamoate 50 mg 09/10/18 20:57 09/13/18 21:10 Vistaril - PO 50 mg HS PRN Administration INSOMNIA Piperacillin Sod/Tazobactam 100 mls @ 200 mls/hr 09/12/18 15:00 09/14/18 10: 10 Sod 4.5 gm/ Dextrose IVPB 200 mls/hr Q8H-IV YAMILKA Administration Protocol Sodium Chloride 1,000 mls @ 42 mls/hr 09/14/18 11:30 09/14/18 13:13 1/2 Normal Saline IV 42 mls/hr ASDIR YAMILKA Administration Insulin Aspart 1 vial 09/09/18 07:00 09/14/18 11:40 Novolog Vial Sliding Scale - SQ 2 units ACHS YAMILKA Administration Protocol Pantoprazole Sodium 40 mg 09/09/18 10:30 09/14/18 10:13 Protonix Iv IVPUSH 40 mg BID YAMILKA Administration Potassium Phos/Sodium Phos 1 packet 09/12/18 10:00 09/14/18 10:21 Phos-Nak Packet - PO 09/15/18 09:59 Not Given DAILY YAMILKA Sodium Bicarbonate 325 mg 09/12/18 10:00 09/14/18 10:13 Sodium Bicarbonate - PO 325 mg DAILY YAMILKA Administration ASSESSMENT/PLAN: Patient is a 58 year old female with a significant past medical history of opiate abuse, HTN, IDDM, s/p gastric bypass, recurrent anemia, gastric ulcer, possible ischemic colitis, chronic diarrhea, DVT on Eliquis who was BIBA due to altered mental status and poor PO intake. #Abdominal pain likely 2/2 pneumoperitoneum -CT of abd and pelvis with contrast - Small focus of pneumoperitoneum. Mild sigmoid wall thickening. Diffuse colonic distention likely due to ileus. Increased nonspecific pelvic free fluid. Resolution of distal small bowel dilatation from small bowel obstruction. Small left pleural effusion. Increased bilateral flank subcutaneous edema. s/p Bariatric gastric surgery. Mild splenomegaly. -Surgery (Dr. Muro) consulted. Recommendations appreciated. -NPO except meds -IV NS @42ml/hr -Hold heparin drip -Replete Mg and Phos -encourage OOB to chair and some ambulation as possible with assistance or PT -advance to diabetic bariatric diet as tolerated with plan to complete antibiotic course po when tolerating and as per ID -fulls in am, advance for lunch if ok tomorrow -once tolerating po diet without increase in pain or clinical signs of gross perforation or worsening, will be able to resume full anticoagulation -ID (Dr. Veronica) consulted. Recommendations appreciated. -Continue Zosyn 4.5 g q8h (day 3) -GI (Dr. Sanon) consulted. Recommendations appreciated. #Altered mental status: resolved -likely 2/2 Uremia 2/2 Acetaminophen toxicity -Patient reportedly took 80 tablets of percocet in the last 5 days. It is unknown if patient took it at the same time or was distributed over 5 days or last intake. -Acetaminophen level low -Urine toxicology: +opiates -Repeat urine toxicology : negative #Transaminitis 2/2 Acetominophen toxicity: resolved -AST/ALT on admission: 421/266; today #ELLA/Rhabdomyolysis: resolved -BUN/CR 137/4.8 on admission, 6/0.6 today -CK wnl -Encouraged patient to ambulate. -Nephrology (Dr. Calderón) consulted. Recommendations appreciated. -d/c mcdonald. Pt able to void. No urinary retention. -Continue IV NS@42 -likely severe prerenal disease causing ATN #New onset fevers: resolved -No fevers >24H -UA negative, CXR negative -Blood cx, urine cx pending -may be likely 2/2 opioid withdrawal -will monitor #Opioid abuse -patient refused to take Suboxone today. -Will order stool cx, c.diff, and wbc - negative -Dr. Rich consulted. Recommendations appreciated: -Pt is probably not a candidate to resume percocets. -Suboxone- will start 2mg today and increase to 8mg tomorrow and may increase to BID if needed and tolerated. -Please call [facility]- , for an initial appt for Suboxone treatment- pt is agreeable for this Rx. #Hx of DVT -On eliquis, put on hold due to renal function -On Heparin drip -Will transition back to Eliquis when renal function normalizes #?Suicidal ideation: likely 2/2 Depression -1:1 observation -Psychiatrist (Dr. Watts) consulted. Case referred to [facility]. -Recommendations appreciated: -will recommend find a bed in psychiatry. -Has [employer] health case work aide Dipesh at [phone] -Major Depression with suicidal ideation. -Client preference is admit [facility]. -Offered SSRI at present, but refused. -May give Visatril 50mg for sleep. #Acute on Chronic Normocytic anemia -Hgb 7.1 today. -Transfused 1unit pRBC -FOBT +,refused NIKITA -GI (Dr. Sanon) consulted. Recommendations appreciated. -CT scan of abdomen with contrast done, -will monitor H/H #Hyperkalemia: resolved -6.3 on admission -Received Calcium Gluconate, Insulin +D5W, Albuterol, and Sodium Bicarb -repeat K 4.6 -will continue to monitor #DM -Insulin Sliding Scale -BGM ACHS #FEN -IV NS@42ml/hr -routine cmp monitoring -Clear liquid diet for now #Prophylaxis -patient was on eliquis. Held due to ARF -Heparin drip hold for now. #Disposition -Tele monitoring. Visit type - Emergency Visit Emergency Visit: Yes ED Registration Date: 09/06/18 Care time: The patient presented to the Emergency Department on the above date and was hospitalized for further evaluation of their emergent condition. - New Patient This patient is new to me today: Yes Date on this admission: 09/14/18 - Critical Care Critical Care patient: No
--- NOTE | 2018-09-14 15:46 | PN ---
Progress Note, Physician History of Present Illness: patient doing well no complaints no abd pain had loose bm on liquids temp in 99 - Current Medication List Current Medications: Active Medications Buprenorphine/Naloxone (Suboxone 8mg/2mg Sl Film -) 1 each SL DAILY [facility] Last Admin: 09/14/18 10:12 Dose: Not Given Calcitriol (Rocaltrol -) 0.5 mcg PO DAILY YAMILKA Last Admin: 09/14/18 10:12 Dose: 0.5 mcg Calcium Carbonate/Cholecalciferol (Os-Willy 500+D -) 2 tab PO BID YAMILKA Last Admin: 09/14/18 10:11 Dose: 2 tab Heparin Sodium (Porcine) (Heparin -) 5,000 unit SQ TID YAMILKA Last Admin: 09/14/18 13:21 Dose: 5,000 unit Hydroxyzine Pamoate (Vistaril -) 50 mg PO HS PRN PRN Reason: INSOMNIA Last Admin: 09/13/18 21:10 Dose: 50 mg Piperacillin Sod/Tazobactam (Sod 4.5 gm/ Dextrose) 100 mls @ 200 mls/hr IVPB Q8H-IV YAMILKA; Protocol Last Admin: 09/14/18 10:10 Dose: 200 mls/hr Sodium Chloride (1/2 Normal Saline) 1,000 mls @ 42 mls/hr IV ASDIR YAMILKA Last Admin: 09/14/18 13:13 Dose: 42 mls/hr Insulin Aspart (Novolog Vial Sliding Scale -) 1 vial SQ ACHS YAMILKA; Protocol Last Admin: 09/14/18 11:40 Dose: 2 units Pantoprazole Sodium (Protonix Iv) 40 mg IVPUSH BID [facility] Last Admin: 09/14/18 10:13 Dose: 40 mg Potassium Phos/Sodium Phos (Phos-Nak Packet -) 1 packet PO DAILY [facility] Stop: 09/15/18 09:59 Last Admin: 09/14/18 10:21 Dose: Not Given Sodium Bicarbonate (Sodium Bicarbonate -) 325 mg PO DAILY [facility] Last Admin: 09/14/18 10:13 Dose: 325 mg - Objective Vital Signs: Vital Signs Temperature 98.1 F 09/14/18 08:57 Pulse Rate 100 H 09/14/18 08:57 Respiratory Rate 20 09/14/18 09:00 Blood Pressure 132/67 09/14/18 08:57 O2 Sat by Pulse Oximetry (%) 98 10/15/18 09:00 Constitutional: Yes: No Distress, Calm Cardiovascular: Yes: Regular Rate and Rhythm Respiratory: Yes: Regular, CTA Bilaterally Gastrointestinal: Yes: Normal Bowel Sounds, Soft Musculoskeletal: Yes: WNL Extremities: Yes: WNL Neurological: Yes: Alert, Oriented Psychiatric: Yes: Alert, Oriented Labs: CBC, BMP 09/14/18 06:00 09/14/18 06:00 INR, PTT INR 1.45 (0.83-1.09) H 09/14/18 06:00 Assessment/Plan Problem List - Problems (1) ARF (acute renal failure) Code(s): N17.9 - ACUTE KIDNEY FAILURE, UNSPECIFIED Qualifiers: Acute renal failure type: unspecified Qualified Code(s): N17.9 - Acute kidney failure, unspecified (2) Abdominal pain Code(s): R10.9 - UNSPECIFIED ABDOMINAL PAIN (3) Depression, major, severe recurrence Code(s): F33.2 - MAJOR DEPRESSV DISORDER, RECURRENT SEVERE W/O PSYCH FEATURES (4) Fever Code(s): R50.9 - FEVER, UNSPECIFIED Qualifiers: Fever type: unspecified Qualified Code(s): R50.9 - Fever, unspecified (5) Rhabdomyolysis Code(s): M62.82 - RHABDOMYOLYSIS Qualifiers: Rhabdomyolysis type: non-traumatic Qualified Code(s): M62.82 - Rhabdomyolysis (6) Sepsis Code(s): A41.9 - SEPSIS, UNSPECIFIED ORGANISM Qualifiers: Sepsis type: sepsis due to unspecified organism Qualified Code(s): A41.9 - Sepsis, unspecified organism (7) DVT (deep venous thrombosis) Code(s): I82.409 - ACUTE EMBOLISM AND THOMBOS UNSP DEEP VN UNSP LOWER EXTREMITY (8) Anemia Code(s): D64.9 - ANEMIA, UNSPECIFIED Qualifiers: Anemia type: unspecified type Qualified Code(s): D64.9 - Anemia, unspecified (9) Chronic diarrhea Code(s): K52.9 - NONINFECTIVE GASTROENTERITIS AND COLITIS, UNSPECIFIED (10) Diabetes Code(s): E11.9 - TYPE 2 DIABETES MELLITUS WITHOUT COMPLICATIONS (11) Opioid abuse Code(s): F11.10 - OPIOID ABUSE, UNCOMPLICATED (12) Leukocytosis Code(s): D72.829 - ELEVATED WHITE BLOOD CELL COUNT, UNSPECIFIED Assessment/Plan Sigmoid microperforation, Hx of ischemic colitis/sigmoid ulcers Sepsis Fever Leukocytosis Chronic diarrhea - CDT neg LUE cephalic vein thrombosis Opiod dependence will continue zosyn for now see how patient tolerates diet close watch rest as per surgery
[2018-09-14 16:12] VITALS: BMI 31.3
--- NOTE | 2018-09-14 17:06 | PN ---
Progress Note, Physician History of Present Illness: Pt with complicated history including lap gastric bypass, ischemic colitis and psychiatric issues, admitted with chronic diarrhea and RLQ pain, having not followed up as outpatient with GI after monthly hospitalizations since May. CT in followup to one from admission showed sigmoid inflammation and microperforation. CT report indicates there are a few diverticuli in region of this process, though there had also been ulcers noted in sigmoid on last endoscopy with active colitis, last month. On discussion with radiologist, he also indicated there was probably mild sigmoid inflammation and tiny locules of air present on admission CT as well, which had not been noted in report. Pt reports feeling better, and her pain is less. She has started back on clears for lunch and dinner, but the soup is too salty. She would like cream of wheat or a piece of bread. Still having loose BMs, soon after eating. - Current Medication List Current Medications: Active Medications Buprenorphine/Naloxone (Suboxone 8mg/2mg Sl Film -) 1 each SL DAILY [facility] Last Admin: 09/14/18 10:12 Dose: Not Given Calcitriol (Rocaltrol -) 0.5 mcg PO DAILY YAMILKA Last Admin: 09/14/18 10:12 Dose: 0.5 mcg Calcium Carbonate/Cholecalciferol (Os-Willy 500+D -) 2 tab PO BID YAMILKA Last Admin: 09/14/18 10:11 Dose: 2 tab Heparin Sodium (Porcine) (Heparin -) 5,000 unit SQ TID YAMILKA Last Admin: 09/14/18 13:21 Dose: 5,000 unit Hydroxyzine Pamoate (Vistaril -) 50 mg PO HS PRN PRN Reason: INSOMNIA Last Admin: 09/13/18 21:10 Dose: 50 mg Piperacillin Sod/Tazobactam (Sod 4.5 gm/ Dextrose) 100 mls @ 200 mls/hr IVPB Q8H-IV YAMILKA; Protocol Last Admin: 09/14/18 10:10 Dose: 200 mls/hr Sodium Chloride (1/2 Normal Saline) 1,000 mls @ 42 mls/hr IV ASDIR YAMILKA Last Admin: 09/14/18 13:13 Dose: 42 mls/hr Insulin Aspart (Novolog Vial Sliding Scale -) 1 vial SQ ACHS YAMILKA; Protocol Last Admin: 09/14/18 11:40 Dose: 2 units Pantoprazole Sodium (Protonix Iv) 40 mg IVPUSH BID [facility] Last Admin: 09/14/18 10:13 Dose: 40 mg Potassium Phos/Sodium Phos (Phos-Nak Packet -) 1 packet PO DAILY [facility] Stop: 09/15/18 09:59 Last Admin: 09/14/18 10:21 Dose: Not Given Sodium Bicarbonate (Sodium Bicarbonate -) 325 mg PO DAILY [facility] Last Admin: 09/14/18 10:13 Dose: 325 mg - Objective Vital Signs: Vital Signs Temperature 98.1 F 09/14/18 08:57 Pulse Rate 100 H 09/14/18 08:57 Respiratory Rate 20 09/14/18 09:00 Blood Pressure 132/67 09/14/18 08:57 O2 Sat by Pulse Oximetry (%) 98 09/14/18 09:00 Constitutional: Yes: No Distress, Calm, Obese Eyes: Yes: Conjunctiva Clear, EOM Intact HENT: Yes: Atraumatic, Normocephalic Gastrointestinal: Yes: Soft, Abdomen, Obese, Tenderness (mild suprapubic, little left of midline, less to none in LLQ and other areas). No: Tenderness, Epigastrium ...Rectal Exam: Yes: Deferred Extremities: No: Cool, Cyanosis Integumentary: No: Jaundice, Rash Neurological: Yes: Alert, Oriented Labs: CBC, BMP 09/14/18 06:00 09/14/18 06:00 INR, PTT INR 1.45 (0.83-1.09) H 09/14/18 06:00 K low, INR elevated Microbiology 09/11/18 10:00 Blood Culture - Preliminary Blood - Peripheral Venous NO GROWTH OBTAINED AFTER 72 HOURS, INCUBATION TO CONTINUE FOR 2 DAYS. 09/11/18 09:27 Blood Culture - Preliminary Blood - Peripheral Venous NO GROWTH OBTAINED AFTER 72 HOURS, INCUBATION TO CONTINUE FOR 2 DAYS. Problem List - Problems (1) Perforation of sigmoid colon Assessment/Plan: microperforation of sigmoid colon, may well be from diverticulitis, though could also be related to known ischemic colitis and sigmoid ulceration noted by GI on last scope 08/18 per radiology, this finding was likely present on admission CT as well but not noted at the time pt has been noncompliant with outpatient followup each of last 3 months regarding workup and treatment for chronic diarrhea and ischemic colitis, following hospitalizations URGED HER TO FOLLOW UP INSTRUCTED WITH MEDICINE AND GI AFTER DISCHARGE antibiotics as per ID encourage OOB to chair and some ambulation as possible with assistance or PT GI also following advance to diabetic bariatric diet as tolerated with plan to complete antibiotic course po when tolerating and as per ID fulls in am, advance for lunch if ok tomorrow once tolerating po diet without increase in pain or clinical signs of gross perforation or worsening, will be able to resume full anticoagulation Code(s): K63.1 - PERFORATION OF INTESTINE (NONTRAUMATIC) (2) Chronic ischemic colitis Code(s): K55.1 - CHRONIC VASCULAR DISORDERS OF INTESTINE (3) Chronic diarrhea Code(s): K52.9 - NONINFECTIVE GASTROENTERITIS AND COLITIS, UNSPECIFIED (4) Morbid obesity Assessment/Plan: s/p lap gastric bypass 2008 and subsequent abdominoplasty pt does not follow with her bariatric surgeon ([facility]) "because it was a bad result " Code(s): E66.01 - MORBID (SEVERE) OBESITY DUE TO EXCESS CALORIES (5) Acetaminophen toxicity Code(s): T39.1X1A - POISONING BY 4-AMINOPHENOL DERIVATIVES, ACCIDENTAL, INIT Qualifiers: Encounter type: initial encounter Injury intent: intentional self-harm Qualified Code(s): T39.1X2A - Poisoning by 4-Aminophenol derivatives, intentional self-harm, initial encounter (6) Opioid abuse Assessment/Plan: plan for inpatient psych transfer when medically stable noted pt now denies this, saying she needs to go home to "do what I have to do" - take care of her mother, and follow up as suggested Code(s): F11.10 - OPIOID ABUSE, UNCOMPLICATED (7) Personal history of other venous thrombosis and embolism Assessment/Plan: heparin drip currently on hold Code(s): Z86.718 - PERSONAL HISTORY OF OTHER VENOUS THROMBOSIS AND EMBOLISM (8) Diabetes mellitus type 2, insulin dependent Code(s): E11.9 - TYPE 2 DIABETES MELLITUS WITHOUT COMPLICATIONS; Z79.4 - ESTHETICS INSTRUCTOR (CURRENT) USE OF INSULIN
--- NOTE | 2018-09-14 17:17 | PN ---
GI Progress Note Subjective: No acute events CT scan results noted: extraluminal air pockets noted around sigmoid Ms. Knox states that pain has improved. Started on clears No significant diarrhea reported by nursing - Objective Vital Signs: Vital Signs Temperature 98.1 F 09/14/18 08:57 Pulse Rate 100 H 09/14/18 08:57 Respiratory Rate 20 09/14/18 09:00 Blood Pressure 132/67 09/14/18 08:57 O2 Sat by Pulse Oximetry (%) 98 09/14/18 09:00 Constitutional: Calm Eyes: No: Sclera Icterus Cardiovascular: Yes: Tachycardia Respiratory: Yes: CTA Bilaterally Gastrointestinal Inspection: No: Distention ...Auscultate: Yes: Normoactive Bowel Sounds ...Palpate: Yes: Tenderness (TTP left abdomen) ...Percussion: No: Tympanitic Labs: CBC, BMP 09/14/18 06:00 09/14/18 06:00 INR, PTT INR 1.45 (0.83-1.09) H 09/14/18 06:00 Problem List - Problems (1) Abdominal pain Assessment/Plan: Suspected microperforation of the left colon Advanced to clears. Surgery following. On IV Abx Asacol HD 800mg PO TID Code(s): R10.9 - UNSPECIFIED ABDOMINAL PAIN
[2018-09-14] MEDS: MESALAMINE 800 MG TABLET.DR PO SCH (22:16)
[2018-09-15] MEDS ORDERED: DEXTROSE 5%-WATER 100 ML IVPB ONE ×3 (02:23→17:05)
[2018-09-15] MEDS ORDERED: PIPERACILLIN/TAZOBACTAM 4.5 GM VIAL IVPB ONE ×3 (02:23→17:05)
[2018-09-15] MEDS: PIPERACILLIN/TAZOB 4.5 GM 4.5 GM in DEXTROSE 5%-WATER 100 ML IVPB SCH ×3 (02:25→17:07)
[2018-09-15] MEDS: MESALAMINE 800 MG TABLET.DR PO SCH ×3 (05:27→22:30)
[2018-09-15] MEDS: HEPARIN NA (PORCINE) 5,000 UNITS/ML 1ML VIAL SQ SCH ×2 (05:27→14:51)
[2018-09-15] MEDS: INSULIN SLIDING SCALE (NOVOLOG) 1 VIAL SQ SCH ×4 (05:59→22:31)
[2018-09-15 06:55] LABS: BASO % 1.1 % (0-2.0); EOS % 3.8 % (0-4.5); HEMATOCRIT 28.2 % (32.4-45.2); HEMOGLOBIN 9.2 GM/dL (10.7-15.3); LYMPH % 25.1 % (8-40); MCH 26.2 pg (25.7-33.7); MCHC 32.5 g/dl (32.0-36.0); MEAN CELL VOLUME 80.8 fl (80-96); MEAN PLT VOLUME 8.6 fl (7.5-11.1); MONO % 10.1 % (3.8-10.2); NEUT % 59.9 % (42.8-82.8); PLATELET COUNT 288 K/MM3 (134-434); RDW 17.3 % (11.6-15.6)
[2018-09-15 07:07] LABS: ALBUMIN 1.5 g/dl (3.4-5.0); ALK PHOS 58 U/L (45-117); ANION GAP 9 MMOL/L (8-16); BILIRUBIN,TOTAL 0.3 mg/dL (0.2-1); BLOOD UREA NITROGEN 3 mg/dL (7-18); CALCIUM 7.1 mg/dL (8.5-10.1); CHLORIDE 109 mmol/L (98-107); CO2 22 mmol/L (21-32); CREATININE 0.5 mg/dL (0.55-1.3); GLUCOSE,RANDOM 153 mg/dL (74-106); MAGNESIUM 1.4 mg/dL (1.8-2.4); POTASSIUM 3.6 mmol/L (3.5-5.1); SGOT/AST 19 U/L (15-37); SGPT/ALT 25 U/L (13-61); SODIUM 141 mmol/L (136-145); TOT PROT 4.5 g/dl (6.4-8.2)
[2018-09-15] MEDS ORDERED: MAGNESIUM 1GM/D5W - 1 GM/100 ML IVPB IVPB ONE (08:30)
[2018-09-15] MEDS ORDERED: PT OWN MED DRAWER 7, Y5N ONE ×4 (09:59→22:49)
[2018-09-15] MEDS: PANTOPRAZOLE SODIUM 40 MG VIAL IVPUSH SCH ×2 (10:11→22:30)
[2018-09-15] MEDS: CALCITRIOL 0.25 MCG CAPSULE (FP) PO SCH (10:11)
[2018-09-15] MEDS: CALCIUM 500MG/VIT-D 200 UNITS COMBO TABLET (FP) PO SCH ×2 (10:11→22:30)
[2018-09-15] MEDS: SODIUM BICARBONATE 325 MG TABLET PO SCH (10:12)
[2018-09-15] MEDS: BUPRENORPHINE/NALOXONE 8 MG/2 MG FILM PACKET SL SCH (10:13)
--- NOTE | 2018-09-15 13:12 | PN ---
Progress Note, Physician History of Present Illness: Pt seen and examined at bedside. She says she is having formed stool and diarrhea is improved. - Current Medication List Current Medications: Active Medications Buprenorphine/Naloxone (Suboxone 8mg/2mg Sl Film -) 1 each SL DAILY [facility] Last Admin: 09/15/18 10:13 Dose: Not Given Calcitriol (Rocaltrol -) 0.5 mcg PO DAILY Y[facility]ILKA Last Admin: 09/15/18 10:11 Dose: 0.5 mcg Calcium Carbonate/Cholecalciferol (Os-Willy 500+D -) 2 tab PO BID YAMILKA Last Admin: 09/15/18 10:11 Dose: 2 tab Heparin Sodium (Porcine) (Heparin -) 5,000 unit SQ TID YAMILKA Last Admin: 09/15/18 05:27 Dose: 5,000 unit Hydroxyzine Pamoate (Vistaril -) 50 mg PO HS PRN PRN Reason: INSOMNIA Last Admin: 09/13/18 21:10 Dose: 50 mg Piperacillin Sod/Tazobactam (Sod 4.5 gm/ Dextrose) 100 mls @ 200 mls/hr IVPB Q8H-IV YAMILKA; Protocol Last Admin: 09/15/18 11:20 Dose: 200 mls/hr Sodium Chloride (1/2 Normal Saline) 1,000 mls @ 42 mls/hr IV ASDIR YAMILKA Last Admin: 09/14/18 13:13 Dose: 42 mls/hr Insulin Aspart (Novolog Vial Sliding Scale -) 1 vial SQ ACHS YAMILKA; Protocol Last Admin: 09/15/18 11:23 Dose: 4 units Mesalamine (Asacol Hd -) 800 mg PO TID YAMILKA Last Admin: 09/15/18 05:27 Dose: 800 mg Pantoprazole Sodium (Protonix Iv) 40 mg IVPUSH BID YAMILKA Last Admin: 09/15/18 10:11 Dose: 40 mg Sodium Bicarbonate (Sodium Bicarbonate -) 325 mg PO DAILY [facility] Last Admin: 09/15/18 10:12 Dose: 325 mg - Objective Vital Signs: Vital Signs Temperature 99.7 F H 09/15/18 08:45 Pulse Rate 98 H 09/15/18 08:45 Respiratory Rate 20 09/15/18 08:45 Blood Pressure 130/67 09/15/18 08:45 O2 Sat by Pulse Oximetry (%) 97 09/15/18 09:00 Constitutional: Yes: Calm Eyes: Yes: Conjunctiva Clear HENT: Yes: Atraumatic Neck: Yes: Supple Cardiovascular: Yes: S1, S2 Respiratory: Yes: CTA Bilaterally Gastrointestinal: Yes: Normal Bowel Sounds, Soft Genitourinary: Yes: WNL Musculoskeletal: Yes: WNL Edema: No Neurological: Yes: Oriented Psychiatric: Yes: Oriented Labs: CBC, BMP 09/15/18 06:00 09/15/18 06:00 INR, PTT INR 1.45 (0.83-1.09) H 09/14/18 06:00 Problem List - Problems (1) ARF (acute renal failure) Code(s): N17.9 - ACUTE KIDNEY FAILURE, UNSPECIFIED Qualifiers: Acute renal failure type: unspecified Qualified Code(s): N17.9 - Acute kidney failure, unspecified (2) Acetaminophen toxicity Code(s): T39.1X1A - POISONING BY 4-AMINOPHENOL DERIVATIVES, ACCIDENTAL, INIT Qualifiers: Encounter type: initial encounter Injury intent: intentional self-harm Qualified Code(s): T39.1X2A - Poisoning by 4-Aminophenol derivatives, intentional self-harm, initial encounter (3) Fever Code(s): R50.9 - FEVER, UNSPECIFIED Qualifiers: Fever type: unspecified Qualified Code(s): R50.9 - Fever, unspecified (4) Hyperkalemia Code(s): E87.5 - HYPERKALEMIA (5) Rhabdomyolysis Code(s): M62.82 - RHABDOMYOLYSIS Qualifiers: Rhabdomyolysis type: non-traumatic Qualified Code(s): M62.82 - Rhabdomyolysis Assessment/Plan Current Medications Generic Name Dose Route Start Last Admin Trade Name Freq PRN Reason Stop Dose Admin Buprenorphine/Naloxone 1 each 09/09/18 10:00 09/15/18 10:13 Suboxone 8mg/2mg Sl Film - SL Not Given DAILY YAMILKA Calcitriol 0.5 mcg 09/09/18 10:00 09/15/18 10:11 Rocaltrol - PO 0.5 mcg DAILY YAMILKA Administration Calcium Carbonate/Cholecalciferol 2 tab 09/09/18 10:00 09/15/18 10:11 Os-Willy 500+D - PO 2 tab BID YAMILKA Administration Heparin Sodium (Porcine) 5,000 unit 09/13/18 14:00 09/15/18 05:27 Heparin - SQ 5,000 unit TID YAMILKA Administration Hydroxyzine Pamoate 50 mg 09/10/18 20:57 09/13/18 21:10 Vistaril - PO 50 mg HS PRN Administration INSOMNIA Piperacillin Sod/Tazobactam 100 mls @ 200 mls/hr 09/12/18 15:00 09/15/18 11: 20 Sod 4.5 gm/ Dextrose IVPB 200 mls/hr Q8H-IV YAMILKA Administration Protocol Sodium Chloride 1,000 mls @ 42 mls/hr 09/14/18 11:30 09/14/18 13:13 1/2 Normal Saline IV 42 mls/hr ASDIR YAMILKA Administration Insulin Aspart 1 vial 09/09/18 07:00 09/15/18 11:23 Novolog Vial Sliding Scale - SQ 4 units ACHS YAMILKA Administration Protocol Mesalamine 800 mg 09/14/18 22:00 09/15/18 05:27 Asacol Hd - PO 800 mg TID YAMILKA Administration Pantoprazole Sodium 40 mg 09/09/18 10:30 09/15/18 10:11 Protonix Iv IVPUSH 40 mg BID YAMILKA Administration Sodium Bicarbonate 325 mg 09/12/18 10:00 09/15/18 10:12 Sodium Bicarbonate - PO 325 mg DAILY YAMILKA Administration Impression 1. ELLA 2. hyperkalemia 3. drug overdose 4. tylenol toxicity 5. rhabdo 6. opioid dependence 7. microscopic hematuria 8. anemia 9. HTN 10. DM 11. hypocalcemia 12. malnutrition Plan - replace mag - will observe off of fluids - stop PO sodium bicarb - replace potassium - will follow Dr Calderón
[2018-09-15] MEDS ORDERED: MAGNESIUM SULF 50% (8.12 MEQ/2 ML-1 GM VIAL) IVPB ONE ×2 (13:13→14:36)
[2018-09-15] MEDS ORDERED: POTASSIUM CHLORIDE TABS 20 MEQ TABLET.ER (FP) PO ONE (13:13)
--- NOTE | 2018-09-15 14:21 | PN ---
Physical Exam: SUBJECTIVE: Patient seen and examined at bedside this morning. No acute events overnight. Patient reports 2 episodes of diarrhea this morning. She also reports skin peeling off in her left hand. Patient was started on regular diet today which she tolerated well. OBJECTIVE: Vital Signs Period Temp Pulse Resp BP Sys/Funse Pulse Ox Last 24 Hr 98.4 F-99.7 F 87-98 18-20 115-132/54-67 97-98 GENERAL: The patient is awake, alert, and oriented, in no acute distress. HEAD: Normal with no signs of trauma. EYES: PERRLA, EOMI, sclera anicteric, conjunctiva clear. NECK: Trachea midline, full range of motion, supple. LUNGS: Breath sounds equal, clear to auscultation bilaterally. HEART: Regular rate and rhythm, S1, S2 without murmur, rub or gallop. ABDOMEN: soft, no tenderness, nondistended, NABS, no guarding. EXTREMITIES: 2+ pulses, warm, well-perfused, no edema. SKIN: Warm, dry, normal turgor, +skin peeling off, R hand Laboratory Results - last 24 hr 09/10/18 09/14/18 09/14/18 08:20 17:16 22:10 WBC RBC Hgb Hct MCV MCH MCHC RDW Plt Count MPV Absolute Neuts (auto) Neutrophils % Lymphocytes % Monocytes % Eosinophils % Basophils % Nucleated RBC % Sodium Potassium Chloride Carbon Dioxide Anion Gap BUN Creatinine Creat Clearance w eGFR POC Glucometer 197 192 Random Glucose Calcium Phosphorus Magnesium Total Bilirubin AST ALT Alkaline Phosphatase Total Protein Albumin Blood Type O POSITIVE Antibody Screen Positive H Antibody Identification Anti-K Crossmatch See Detail 09/15/18 09/15/18 09/15/18 05:20 06:00 06:00 WBC 7.0 RBC 3.50 L Hgb 9.2 L Hct 28.2 L MCV 80.8 MCH 26.2 MCHC 32.5 RDW 17.3 H Plt Count 288 MPV 8.6 D Absolute Neuts (auto) 4.2 Neutrophils % 59.9 Lymphocytes % 25.1 D Monocytes % 10.1 Eosinophils % 3.8 Basophils % 1.1 Nucleated RBC % 0 Sodium 141 Potassium 3.6 Chloride 109 H Carbon Dioxide 22 Anion Gap 9 BUN 3 L Creatinine 0.5 L Creat Clearance w eGFR > 60 POC Glucometer 142 Random Glucose 153 H Calcium 7.1 L Phosphorus 3.0 Magnesium 1.4 L Total Bilirubin 0.3 AST 19 ALT 25 Alkaline Phosphatase 58 Total Protein 4.5 L Albumin 1.5 L Blood Type Antibody Screen Antibody Identification Crossmatch 09/15/18 09/15/18 11:22 13:27 WBC RBC Hgb Hct MCV MCH MCHC RDW Plt Count MPV Absolute Neuts (auto) Neutrophils % Lymphocytes % Monocytes % Eosinophils % Basophils % Nucleated RBC % Sodium Potassium Chloride Carbon Dioxide Anion Gap BUN Creatinine Creat Clearance w eGFR POC Glucometer 216 157 Random Glucose Calcium Phosphorus Magnesium Total Bilirubin AST ALT Alkaline Phosphatase Total Protein Albumin Blood Type Antibody Screen Antibody Identification Crossmatch Active Medications Generic Name Dose Route Start Last Admin Trade Name Freq PRN Reason Stop Dose Admin Buprenorphine/Naloxone 1 each 09/09/18 10:00 09/15/18 10:13 Suboxone 8mg/2mg Sl Film - SL Not Given DAILY YAMILKA Calcium Carbonate/Cholecalciferol 2 tab 09/09/18 10:00 09/15/18 10:11 Os-Willy 500+D - PO 2 tab BID YAMILKA Administration Heparin Sodium (Porcine) 5,000 unit 09/13/18 14:00 09/15/18 05:27 Heparin - SQ 5,000 unit TID YAMILKA Administration Hydroxyzine Pamoate 50 mg 09/10/18 20:57 09/13/18 21:10 Vistaril - PO 50 mg HS PRN Administration INSOMNIA Piperacillin Sod/Tazobactam 100 mls @ 200 mls/hr 09/12/18 15:00 09/15/18 11: 20 Sod 4.5 gm/ Dextrose IVPB 200 mls/hr Q8H-IV YAMILKA Administration Protocol Insulin Aspart 1 vial 09/09/18 07:00 09/15/18 11:23 Novolog Vial Sliding Scale - SQ 4 units ACHS YAMILKA Administration Protocol Mesalamine 800 mg 09/14/18 22:00 09/15/18 05:27 Asacol Hd - PO 800 mg TID YAMILKA Administration Pantoprazole Sodium 40 mg 09/09/18 10:30 09/15/18 10:11 Protonix Iv IVPUSH 40 mg BID YAMILKA Administration ASSESSMENT/PLAN: Patient is a 58 year old female with a significant past medical history of opiate abuse, HTN, IDDM, s/p gastric bypass, recurrent anemia, gastric ulcer, possible ischemic colitis, chronic diarrhea, DVT on Eliquis who was BIBA due to altered mental status and poor PO intake. #Abdominal pain likely 2/2 pneumoperitoneum -CT of abd and pelvis with contrast - Small focus of pneumoperitoneum. Mild sigmoid wall thickening. Diffuse colonic distention likely due to ileus. Increased nonspecific pelvic free fluid. Resolution of distal small bowel dilatation from small bowel obstruction. Small left pleural effusion. Increased bilateral flank subcutaneous edema. s/p Bariatric gastric surgery. Mild splenomegaly. -Surgery (Dr. Muro) consulted. Recommendations appreciated. -encourage OOB to chair and some ambulation as possible with assistance or PT -Tolerating diabetic diet -plan to complete antibiotic course PO as per ID -May resume full anticoagulation. -No indication for surgical intervention at this time. -ID (Dr. Veronica) consulted. Recommendations appreciated. -Continue Zosyn 4.5 g q8h (day 4) -GI (Dr. Sanon) consulted. Recommendations appreciated. #Altered mental status: resolved -likely 2/2 Uremia 2/2 Acetaminophen toxicity -Patient reportedly took 80 tablets of percocet in the last 5 days. It is unknown if patient took it at the same time or was distributed over 5 days or last intake. -Acetaminophen level low -Urine toxicology: +opiates -Repeat urine toxicology : negative #Transaminitis 2/2 Acetominophen toxicity: resolved #ELAL/Rhabdomyolysis: resolved -likely severe prerenal disease causing ATN #New onset fevers: resolved -No fevers >24H -UA negative, CXR negative -Blood cx, urine cx pending -may be likely 2/2 opioid withdrawal -will monitor #Opioid abuse -patient refused to take Suboxone. -Will order stool cx, c.diff, and wbc - negative -Dr. Rich consulted. Recommendations appreciated: -Pt is probably not a candidate to resume percocets. -Suboxone- will start 2mg today and increase to 8mg tomorrow and may increase to BID if needed and tolerated. -Please call [facility]- , for an initial appt for Suboxone treatment- pt is agreeable for this Rx. #Hx of DVT -Eliquis 5mg BID resumed. #?Suicidal ideation: likely 2/2 Depression -Psychiatrist (Dr. Watts) consulted. Recommendations appreciated. -Discontinue 1:1 -Discharge when medically stable -No psych follow up needed at this time. #Acute on Chronic Normocytic anemia: stable #Hyperkalemia: resolved #DM -Insulin Sliding Scale -BGM ACHS #FEN -Not on any standing fluids. -Encourage increased oral fluid intake -routine cmp monitoring -Diabetic diet #Prophylaxis -Eliquis 5mg BID #Disposition -Tele monitoring. Visit type - Emergency Visit Emergency Visit: Yes ED Registration Date: 09/06/18 Care time: The patient presented to the Emergency Department on the above date and was hospitalized for further evaluation of their emergent condition. - New Patient This patient is new to me today: Yes Date on this admission: 09/15/18 - Critical Care Critical Care patient: No
--- NOTE | 2018-09-15 14:56 | PN ---
Progress Note, Physician History of Present Illness: patient doing well no complaints bm improved - Current Medication List Current Medications: Active Medications Buprenorphine/Naloxone (Suboxone 8mg/2mg Sl Film -) 1 each SL DAILY [facility] Last Admin: 09/15/18 10:13 Dose: Not Given Calcium Carbonate/Cholecalciferol (Os-Willy 500+D -) 2 tab PO BID [facility] Last Admin: 09/15/18 10:11 Dose: 2 tab Heparin Sodium (Porcine) (Heparin -) 5,000 unit SQ TID [facility] Last Admin: 09/15/18 05:27 Dose: 5,000 unit Hydroxyzine Pamoate (Vistaril -) 50 mg PO HS PRN PRN Reason: INSOMNIA Last Admin: 09/13/18 21:10 Dose: 50 mg Piperacillin Sod/Tazobactam (Sod 4.5 gm/ Dextrose) 100 mls @ 200 mls/hr IVPB Q8H-IV [facility]; Protocol Last Admin: 09/15/18 11:20 Dose: 200 mls/hr Insulin Aspart (Novolog Vial Sliding Scale -) 1 vial SQ ACHS [facility]; Protocol Last Admin: 09/15/18 11:23 Dose: 4 units Magnesium Sulfate (Magnesium Sulfate) 1 gm IVPB ONCE ONE Stop: 09/15/18 14:37 Mesalamine (Asacol Hd -) 800 mg PO TID [facility] Last Admin: 09/15/18 05:27 Dose: 800 mg Pantoprazole Sodium (Protonix Iv) 40 mg IVPUSH BID [facility] Last Admin: 09/15/18 10:11 Dose: 40 mg - Objective Vital Signs: Vital Signs Temperature 98.9 F 09/15/18 14:25 Pulse Rate 100 H 09/15/18 14:25 Respiratory Rate 20 09/15/18 14:25 Blood Pressure 114/43 L 09/15/18 14:25 O2 Sat by Pulse Oximetry (%) 97 09/15/18 09:00 Constitutional: Yes: No Distress, Calm Neck: Yes: Supple Cardiovascular: Yes: Regular Rate and Rhythm Respiratory: Yes: Regular, CTA Bilaterally Gastrointestinal: Yes: Normal Bowel Sounds, Soft Musculoskeletal: Yes: WNL Extremities: Yes: WNL Neurological: Yes: Alert, Oriented Psychiatric: Yes: Alert Labs: CBC, BMP 09/15/18 06:00 09/15/18 06:00 INR, PTT INR 1.45 (0.83-1.09) H 09/14/18 06:00 Assessment/Plan Problem List - Problems (1) ARF (acute renal failure) Code(s): N17.9 - ACUTE KIDNEY FAILURE, UNSPECIFIED Qualifiers: Acute renal failure type: unspecified Qualified Code(s): N17.9 - Acute kidney failure, unspecified (2) Abdominal pain Code(s): R10.9 - UNSPECIFIED ABDOMINAL PAIN (3) Depression, major, severe recurrence Code(s): F33.2 - MAJOR DEPRESSV DISORDER, RECURRENT SEVERE W/O PSYCH FEATURES (4) Fever Code(s): R50.9 - FEVER, UNSPECIFIED Qualifiers: Fever type: unspecified Qualified Code(s): R50.9 - Fever, unspecified (5) Rhabdomyolysis Code(s): M62.82 - RHABDOMYOLYSIS Qualifiers: Rhabdomyolysis type: non-traumatic Qualified Code(s): M62.82 - Rhabdomyolysis (6) Sepsis Code(s): A41.9 - SEPSIS, UNSPECIFIED ORGANISM Qualifiers: Sepsis type: sepsis due to unspecified organism Qualified Code(s): A41.9 - Sepsis, unspecified organism (7) DVT (deep venous thrombosis) Code(s): I82.409 - ACUTE EMBOLISM AND THOMBOS UNSP DEEP VN UNSP LOWER EXTREMITY (8) Anemia Code(s): D64.9 - ANEMIA, UNSPECIFIED Qualifiers: Anemia type: unspecified type Qualified Code(s): D64.9 - Anemia, unspecified (9) Chronic diarrhea Code(s): K52.9 - NONINFECTIVE GASTROENTERITIS AND COLITIS, UNSPECIFIED (10) Diabetes Code(s): E11.9 - TYPE 2 DIABETES MELLITUS WITHOUT COMPLICATIONS (11) Opioid abuse Code(s): F11.10 - OPIOID ABUSE, UNCOMPLICATED (12) Leukocytosis Code(s): D72.829 - ELEVATED WHITE BLOOD CELL COUNT, UNSPECIFIED Assessment/Plan Sigmoid microperforation, Hx of ischemic colitis/sigmoid ulcers Sepsis Fever Leukocytosis Chronic diarrhea - CDT neg LUE cephalic vein thrombosis Opiod dependence will continue zosyn for now will deescalate tomorrow rest continue current mgmt and as per the team
[2018-09-15] MEDS: SODIUM CHLORIDE 0.45% 1,000 ML IV SCH (14:59)
--- NOTE | 2018-09-15 15:16 | PN ---
Teaching Attending Note Name of Resident: Odette Garcia ATTENDING PHYSICIAN STATEMENT I saw and evaluated the patient. I reviewed the resident's note and discussed the case with the resident. I agree with the resident's findings and plan as documented. SUBJECTIVE:asymptomatic. tolerated clears. requesting regular food to eat. states she has no desire to hurt herself and does not want to go to psych facility. denies CP, SOB, fever,chills, N/V/C/D OBJECTIVE: Last Vital Signs Temp Pulse Resp BP Pulse Ox 98.9 F 100 H 20 114/43 L 97 09/15/18 14:25 09/15/18 14:25 09/15/18 14:25 09/15/18 14:25 09/15/18 09:00 General NAD CV S1 S2 iregular Lungs CTA B/L no wheezing/rales/rhonchi Abdomen soft NT/nD obese ASSESSMENT AND PLAN: 58 yo F with PMHx of Gastric bypass (?2004), recurrent anemia, prior EGD/ colonoscopy in 05/2018 showing gastric ulcers at anastomotic site/Possible ischemic colitis, recent RLE DVT on eliquis, IDDM, HTN, chronic diarrhea, opioid dependence, brought to the ER with lethargy and anorexia due to opiate overdose and was found to be in acute renal failure with metabolic acidosis which improved. course complicated by development of sigmoid microperforation. 1. Sigmoid microperforation due to acute diverticulitis with ischemic colitis and colonic distention- likely due to chronic opiate use. possible present on admission however not well noted. no indication for surgery. clinically improved. on empiric zosyn day 4. tolerating liquids will advance diet and see if tlerated. will need to f/u with GI for repeat endoscopy. GI and sx on board. on asacol 2. Acute toxic metabolic encephalopathy- due to tylenol overdose and uremia. now resolved. was seen on psych and determined she was a threat to herself and recommended inpatient psych. pt claiming she is no longer a threat and desires to live. will request psych to return and re-evaluate. cont 1:1 observation at this time. 3. Tylenol overdose- unclear if intentional or not. 4. ARF-likely multifactorial. dehydration, rhabdo, acidosis and possible underlying renal disease. resolved. 5. AGMA- resolved 6. Transaminitis- due to tylenol use. resolved 7. Normocytic anemia- likely dilutional component. transfused 2 units PRBC this hospital stay. Hgb stable. no indication for transfusion 8.Hypocalcemia- corrected Ca 8. on supplements 9. Hyperkalemia- resolved 10. DVT- was on eliquis. will re-start once tolerating diet. safe per surgery to re-start at this time 11. DM- bgm and iss. would hold oral agents. 12. DVT ppx- hepsq 13. plan was for inpatient psych once medically optimized. pt does not want to go. will request psych to re-evaluate to determine if pt is still a threat to herself.
--- NOTE | 2018-09-15 15:49 | PN ---
Progress Note (short form) - Note Progress Note: Psych follow up: patient seen for Psych foillow up. Case discussed with staff. Patient has been on 1;1. no reports os any suicidal thoughts or Behaviour. MS: alert, oriented, good eye contact. denies any suicidal intentions. she claims she mis calculated her Pain meds which she gets from her pain Management MD. No currant psych treatment. Carola: D/C 1:1 2) discharge when medically stable. 3) No psych follow up needed at this time.
--- NOTE | 2018-09-15 16:05 | PN ---
Progress Note, Physician History of Present Illness: Pt with complicated history including lap gastric bypass, ischemic colitis and psychiatric issues, admitted with chronic diarrhea and RLQ pain, having not followed up as outpatient with GI after monthly hospitalizations since May. CT in followup to one from admission showed sigmoid inflammation and microperforation. CT report indicates there are a few diverticuli in region of this process, though there had also been ulcers noted in sigmoid on last endoscopy with active colitis, last month. On discussion with radiologist, he also indicated there was probably mild sigmoid inflammation and tiny locules of air present on admission CT as well, which had not been noted in report. Pt has had "a good day." She was up in chair for 3 hrs, walked with PT up and down flores, had lunch of some fish, potatoes, bread and carrots, and has had a few small loose BMs, but it "is starting to firm up." Pain is minimal. She just laid down again. - Current Medication List Current Medications: Active Medications Buprenorphine/Naloxone (Suboxone 8mg/2mg Sl Film -) 1 each SL DAILY [facility] Last Admin: 09/15/18 10:13 Dose: Not Given Calcium Carbonate/Cholecalciferol (Os-Willy 500+D -) 2 tab PO BID YAMILKA Last Admin: 09/15/18 10:11 Dose: 2 tab Heparin Sodium (Porcine) (Heparin -) 5,000 unit SQ TID [facility] Last Admin: 09/15/18 14:51 Dose: 5,000 unit Hydroxyzine Pamoate (Vistaril -) 50 mg PO HS PRN PRN Reason: INSOMNIA Last Admin: 09/13/18 21:10 Dose: 50 mg Piperacillin Sod/Tazobactam (Sod 4.5 gm/ Dextrose) 100 mls @ 200 mls/hr IVPB Q8H-IV YAMILKA; Protocol Last Admin: 09/15/18 11:20 Dose: 200 mls/hr Insulin Aspart (Novolog Vial Sliding Scale -) 1 vial SQ ACHS [facility]; Protocol Last Admin: 09/15/18 11:23 Dose: 4 units Mesalamine (Asacol Hd -) 800 mg PO TID [facility] Last Admin: 09/15/18 14:50 Dose: 800 mg Pantoprazole Sodium (Protonix Iv) 40 mg IVPUSH BID [facility] Last Admin: 09/15/18 10:11 Dose: 40 mg - Objective Vital Signs: Vital Signs Temperature 98.9 F 09/15/18 14:25 Pulse Rate 100 H 09/15/18 14:25 Respiratory Rate 20 09/15/18 14:25 Blood Pressure 114/43 L 09/15/18 14:25 O2 Sat by Pulse Oximetry (%) 97 09/15/18 09:00 Constitutional: Yes: No Distress, Calm, Obese Eyes: Yes: Conjunctiva Clear, EOM Intact HENT: Yes: Atraumatic, Normocephalic Gastrointestinal: Yes: Soft, Abdomen, Obese, Tenderness (LLQ mild, nowhere else , no R/G) Extremities: No: Cool, Cyanosis Neurological: Yes: Alert, Oriented Psychiatric: Yes: Alert, Oriented. No: Agitated Labs: CBC, BMP 09/15/18 06:00 09/15/18 06:00 K little low, CO2 ok wbc normal H/H stable Problem List - Problems (1) Perforation of sigmoid colon Assessment/Plan: microperforation of sigmoid colon, may well be from diverticulitis, though could also be related to known ischemic colitis and sigmoid ulceration noted by GI on last scope 08/18 per radiology, this finding was likely present on admission CT as well but not noted at the time pt has been noncompliant with outpatient followup each of last 3 months regarding workup and treatment for chronic diarrhea and ischemic colitis, following hospitalizations URGED HER TO FOLLOW UP INSTRUCTED WITH MEDICINE AND GI AFTER DISCHARGE - she indicates she does intend to do so antibiotics as per ID encourage OOB to chair and some ambulation as possible with assistance or PT GI also following tolerating diabetic diet; encouraged to eat as appropriate s/p bariatric surgery plan to complete antibiotic course po as per ID on discharge may resume full anticoagulation no indication for surgical intervention at this time will sign off please recall as needed Thank you for the opportunity to participate in the care of this patient. Code(s): K63.1 - PERFORATION OF INTESTINE (NONTRAUMATIC) (2) Diverticulitis of large intestine with perforation without abscess or bleeding Code(s): K57.20 - DVTRCLI OF LG INT W PERFORATION AND ABSCESS W/O BLEEDING (3) Chronic ischemic colitis Code(s): K55.1 - CHRONIC VASCULAR DISORDERS OF INTESTINE (4) Chronic diarrhea Code(s): K52.9 - NONINFECTIVE GASTROENTERITIS AND COLITIS, UNSPECIFIED (5) Morbid obesity Assessment/Plan: s/p lap gastric bypass 2008 and subsequent abdominoplasty pt does not follow with her bariatric surgeon ([facility]) "because it was a bad result " Code(s): E66.01 - MORBID (SEVERE) OBESITY DUE TO EXCESS CALORIES (6) Acetaminophen toxicity Code(s): T39.1X1A - POISONING BY 4-AMINOPHENOL DERIVATIVES, ACCIDENTAL, INIT Qualifiers: Encounter type: initial encounter Injury intent: intentional self-harm Qualified Code(s): T39.1X2A - Poisoning by 4-Aminophenol derivatives, intentional self-harm, initial encounter (7) Opioid abuse Assessment/Plan: per psychiatry, will not go to inpt psych on discharge 1:1 d/c'd by psych Code(s): F11.10 - OPIOID ABUSE, UNCOMPLICATED (8) Personal history of other venous thrombosis and embolism Assessment/Plan: could resume anticoagulation Code(s): Z86.718 - PERSONAL HISTORY OF OTHER VENOUS THROMBOSIS AND EMBOLISM (9) Diabetes mellitus type 2, insulin dependent Code(s): E11.9 - TYPE 2 DIABETES MELLITUS WITHOUT COMPLICATIONS; Z79.4 - BUNDLE PACKER (CURRENT) USE OF INSULIN
--- NOTE | 2018-09-15 16:48 | PN ---
GI Progress Note Subjective: States feeling well Diarrhea has improved Abdominal pain has improved tolerating PO - Objective Vital Signs: Vital Signs Temperature 98.9 F 09/15/18 14:25 Pulse Rate 100 H 09/15/18 14:25 Respiratory Rate 20 09/15/18 14:25 Blood Pressure 114/43 L 09/15/18 14:25 O2 Sat by Pulse Oximetry (%) 97 09/15/18 09:00 Constitutional: Calm Eyes: No: Sclera Icterus Cardiovascular: Yes: Tachycardia Gastrointestinal Inspection: Yes: Distention ...Auscultate: Yes: Normoactive Bowel Sounds ...Palpate: Yes: Soft, Tenderness (Mild TTP LLQ). No: Guarding, Tenderness, Rebound ...Percussion: No: Tympanitic Neurological: Yes: Alert Labs: CBC, BMP 09/15/18 06:00 09/15/18 06:00 INR, PTT INR 1.45 (0.83-1.09) H 09/14/18 06:00 Hepatic Panel Total Bilirubin 0.3 mg/dL (0.2-1) 09/15/18 06:00 Direct Bilirubin 0.3 mg/dL (0.0-0.2) H 09/07/18 18:00 AST 19 U/L (15-37) 09/15/18 06:00 ALT 25 U/L (13-61) 09/15/18 06:00 Alkaline Phosphatase 58 U/L (45-117) 09/15/18 06:00 Albumin 1.5 g/dl (3.4-5.0) L 09/15/18 06:00 Problem List - Problems (1) Abdominal pain Assessment/Plan: Much improved: Tolerating PO ? microperforation from previously noted inflammatory changes within the sigmoid colon On IV Abx No surgical intervention planned Asacol 800 mg PO TID Code(s): R10.9 - UNSPECIFIED ABDOMINAL PAIN
[2018-09-15] MEDS: APIXABAN 5 MG TABLET PO SCH (22:30)
[2018-09-16] MEDS ORDERED: PIPERACILLIN/TAZOBACTAM 4.5 GM VIAL IVPB ONE ×2 (02:00→10:38)
[2018-09-16] MEDS ORDERED: DEXTROSE 5%-WATER 100 ML IVPB ONE ×2 (02:01→10:38)
[2018-09-16] MEDS: PIPERACILLIN/TAZOB 4.5 GM 4.5 GM in DEXTROSE 5%-WATER 100 ML IVPB SCH ×2 (02:10→14:09)
[2018-09-16] MEDS ORDERED: PT OWN MED DRAWER 7, Y5N ONE ×2 (05:26→14:01)
[2018-09-16] MEDS: MESALAMINE 800 MG TABLET.DR PO SCH ×2 (06:26→14:07)
[2018-09-16] MEDS: INSULIN SLIDING SCALE (NOVOLOG) 1 VIAL SQ SCH ×3 (06:26→17:09)
[2018-09-16 06:44] LABS: HEMOGLOBIN 8.3 GM/dL (10.7-15.3); MCH 25.9 pg (25.7-33.7); MCHC 32.1 g/dl (32.0-36.0); MEAN CELL VOLUME 80.7 fl (80-96); MEAN PLT VOLUME 7.3 fl (7.5-11.1); PLATELET COUNT 391 K/MM3 (134-434); RBC 3.22 M/mm3 (3.60-5.2); RDW 17.4 % (11.6-15.6); WHITE BLOOD COUNT 5.9 K/mm3 (4.0-10.0)
[2018-09-16] MEDS ORDERED: INSULIN (NOVOLOG) ASPART 100 UNITS/ML 10ML VIAL ONE (06:48)
[2018-09-16 07:37] LABS: ALBUMIN 1.5 g/dl (3.4-5.0); ALK PHOS 57 U/L (45-117); ANION GAP 9 MMOL/L (8-16); BILIRUBIN,TOTAL 0.3 mg/dL (0.2-1); BLOOD UREA NITROGEN 4 mg/dL (7-18); CALCIUM 7.7 mg/dL (8.5-10.1); CHLORIDE 108 mmol/L (98-107); CO2 23 mmol/L (21-32); CREATININE 0.6 mg/dL (0.55-1.3); GLUCOSE,RANDOM 202 mg/dL (74-106); MAGNESIUM 1.5 mg/dL (1.8-2.4); PHOSPHOROUS 2.9 mg/dL (2.5-4.9); POTASSIUM 3.5 mmol/L (3.5-5.1); SGOT/AST 12 U/L (15-37); SGPT/ALT 20 U/L (13-61); SODIUM 140 mmol/L (136-145); TOT PROT 4.3 g/dl (6.4-8.2)
[2018-09-16] MEDS ORDERED: MAGNESIUM OXIDE 400 MG TABLET (FP) PO ONE (07:45)
[2018-09-16] MEDS ORDERED: MAGNESIUM SULF 50% (8.12 MEQ/2 ML-1 GM VIAL) IVPB ONE (07:45)
[2018-09-16] MEDS ORDERED: PANTOPRAZOLE 40 MG TABLET (FP) PO SCH (10:00)
[2018-09-16] MEDS: APIXABAN 5 MG TABLET PO SCH (10:44)
[2018-09-16] MEDS: CALCIUM 500MG/VIT-D 200 UNITS COMBO TABLET (FP) PO SCH (10:44)
[2018-09-16] MEDS: BUPRENORPHINE/NALOXONE 8 MG/2 MG FILM PACKET SL SCH (10:46)
--- NOTE | 2018-09-16 11:33 | PN ---
Progress Note, Physician History of Present Illness: Pt seen and examined at bedside. SHe is awake and alert. She is stable off of fluids. - Current Medication List Current Medications: Active Medications Apixaban (Eliquis -) 5 mg PO BID [facility] Last Admin: 09/16/18 10:44 Dose: 5 mg Buprenorphine/Naloxone (Suboxone 8mg/2mg Sl Film -) 1 each SL DAILY [facility] Last Admin: 09/16/18 10:46 Dose: Not Given Calcium Carbonate/Cholecalciferol (Os-Willy 500+D -) 2 tab PO BID [facility] Last Admin: 09/16/18 10:44 Dose: 2 tab Hydroxyzine Pamoate (Vistaril -) 50 mg PO HS PRN PRN Reason: INSOMNIA Last Admin: 09/13/18 21:10 Dose: 50 mg Piperacillin Sod/Tazobactam (Sod 4.5 gm/ Dextrose) 100 mls @ 200 mls/hr IVPB Q8H-IV [facility]; Protocol Last Admin: 09/16/18 02:10 Dose: 200 mls/hr Insulin Aspart (Novolog Vial Sliding Scale -) 1 vial SQ ACHS [facility]; Protocol Last Admin: 09/16/18 06:26 Dose: 2 units Mesalamine (Asacol Hd -) 800 mg PO TID [facility] Last Admin: 09/16/18 06:26 Dose: 800 mg Pantoprazole Sodium (Protonix -) 40 mg PO DAILY [facility] Last Admin: 09/16/18 10:44 Dose: 40 mg - Objective Vital Signs: Vital Signs Temperature 99.1 F 09/16/18 05:50 Pulse Rate 96 H 09/16/18 08:29 Respiratory Rate 18 09/16/18 08:29 Blood Pressure 122/50 L 09/16/18 08:29 O2 Sat by Pulse Oximetry (%) 97 09/15/18 21:00 Constitutional: Yes: Calm Eyes: Yes: Conjunctiva Clear HENT: Yes: Atraumatic Neck: Yes: Supple Cardiovascular: Yes: S1, S2 Respiratory: Yes: CTA Bilaterally Gastrointestinal: Yes: Soft, Abdomen, Obese Genitourinary: Yes: WNL Musculoskeletal: Yes: WNL Edema: Yes Edema: LLE: 1+, RLE: 1+ Neurological: Yes: Oriented Psychiatric: Yes: Oriented Labs: CBC, BMP 09/16/18 06:00 09/16/18 06:00 INR, PTT INR 1.45 (0.83-1.09) H 09/14/18 06:00 Problem List - Problems (1) ARF (acute renal failure) Code(s): N17.9 - ACUTE KIDNEY FAILURE, UNSPECIFIED Qualifiers: Acute renal failure type: unspecified Qualified Code(s): N17.9 - Acute kidney failure, unspecified (2) Acetaminophen toxicity Code(s): T39.1X1A - POISONING BY 4-AMINOPHENOL DERIVATIVES, ACCIDENTAL, INIT Qualifiers: Encounter type: initial encounter Injury intent: intentional self-harm Qualified Code(s): T39.1X2A - Poisoning by 4-Aminophenol derivatives, intentional self-harm, initial encounter (3) Fever Code(s): R50.9 - FEVER, UNSPECIFIED Qualifiers: Fever type: unspecified Qualified Code(s): R50.9 - Fever, unspecified (4) Hyperkalemia Code(s): E87.5 - HYPERKALEMIA (5) Rhabdomyolysis Code(s): M62.82 - RHABDOMYOLYSIS Qualifiers: Rhabdomyolysis type: non-traumatic Qualified Code(s): M62.82 - Rhabdomyolysis Assessment/Plan Current Medications Generic Name Dose Route Start Last Admin Trade Name Freq PRN Reason Stop Dose Admin Apixaban 5 mg 09/15/18 22:00 09/16/18 10:44 Eliquis - PO 5 mg BID [facility] Administration Buprenorphine/Naloxone 1 each 09/09/18 10:00 09/16/18 10:46 Suboxone 8mg/2mg Sl Film - SL Not Given DAILY [facility] Calcium Carbonate/Cholecalciferol 2 tab 09/09/18 10:00 09/16/18 10:44 Os-Willy 500+D - PO 2 tab BID [facility] Administration Hydroxyzine Pamoate 50 mg 09/10/18 20:57 09/13/18 21:10 Vistaril - PO 50 mg HS PRN Administration INSOMNIA Piperacillin Sod/Tazobactam 100 mls @ 200 mls/hr 09/12/18 15:00 09/16/18 02: 10 Sod 4.5 gm/ Dextrose IVPB 200 mls/hr Q8H-IV [facility] Administration Protocol Insulin Aspart 1 vial 09/09/18 07:00 09/16/18 06:26 Novolog Vial Sliding Scale - SQ 2 units ACHS [facility] Administration Protocol Mesalamine 800 mg 09/14/18 22:00 09/16/18 06:26 Asacol Hd - PO 800 mg TID [facility] Administration Pantoprazole Sodium 40 mg 09/16/18 10:00 09/16/18 10:44 Protonix - PO 40 mg DAILY [facility] Administration Impression 1. ELLA 2. hyperkalemia 3. drug overdose 4. tylenol toxicity 5. rhabdo 6. opioid dependence 7. microscopic hematuria 8. anemia 9. HTN 10. DM 11. hypocalcemia 12. malnutrition Plan - change calcium to daily - fluids stopped - will monitor volume status - replace mag - pt tolerating diet - will follow Dr Calderón
--- NOTE | 2018-09-16 12:11 | PN ---
Teaching Attending Note Name of Resident: Odette Garcia ATTENDING PHYSICIAN STATEMENT I saw and evaluated the patient. I reviewed the resident's note and discussed the case with the resident. I agree with the resident's findings and plan as documented. SUBJECTIVE:asymptomatic. denies CP, SOB, fever, chills, N/V/C/D, melena, BRBPR. tolerating diet OBJECTIVE: Last Vital Signs Temp Pulse Resp BP Pulse Ox 99.1 F 96 H 18 122/50 L 97 09/16/18 05:50 09/16/18 08:29 09/16/18 08:29 09/16/18 08:29 09/15/18 21:00 General NAD ASSESSMENT AND PLAN: 58 yo F with PMHx of Gastric bypass (?2004), recurrent anemia, prior EGD/ colonoscopy in 05/2018 showing gastric ulcers at anastomotic site/Possible ischemic colitis, recent RLE DVT on eliquis, IDDM, HTN, chronic diarrhea, opioid dependence, brought to the ER with lethargy and anorexia due to opiate overdose and was found to be in acute renal failure with metabolic acidosis which improved. course complicated by development of sigmoid microperforation. 1. Sigmoid microperforation due to acute diverticulitis with ischemic colitis and colonic distention- likely due to chronic opiate use. possible present on admission however not well noted. no indication for surgery. clinically improved. on empiric zosyn day 5. plan to de-escalate today. tolerating regular diet. should follow up [facility] as outpatient. on asacol 2. Acute toxic metabolic encephalopathy- due to tylenol overdose and uremia. now resolved. re-evaluated by psych and no longer a threat to herself. was recommended to be placed on suboxone however pt has been refusing it and has not received it while being here. plans to f/u with psych at [facility] on discharge. 3. Tylenol overdose- unclear if intentional or not. 4. ARF-likely multifactorial. dehydration, rhabdo, acidosis and possible underlying renal disease. resolved. 5. Hypomagnesemia- possible induced by PPI. replete IV and PO. will d/c with couple days to take at home. can have levels repeated next week by PMD 6. Transaminitis- due to tylenol use. resolved 7. Normocytic anemia- likely dilutional component. transfused 2 units PRBC this hospital stay. slight drop today, no signs of bleeding. repeat CBC to ensure Hgb is stable. no indication for transfusion 8.Hypocalcemia- corrected Ca 8. on supplements 9. Hyperkalemia- resolved 10. DVT- eliquis 11. DM- bgm and iss. would hold oral agents. 12. medically cleared to be discharged home. will repeat CBC if stable can go home. counselled on importance of various doctor follow up and taking medications as instructed. stressed importance of avoidance of all opiates and psych follow up. verbalized understanding and agreement. should have labs repeated early next week with PMD
[2018-09-16 12:30] LABS: HEMATOCRIT 30.8 % (32.4-45.2); HEMOGLOBIN 9.7 GM/dL (10.7-15.3); MCH 25.8 pg (25.7-33.7); MCHC 31.7 g/dl (32.0-36.0); MEAN CELL VOLUME 81.4 fl (80-96); MEAN PLT VOLUME 7.2 fl (7.5-11.1); PLATELET COUNT 511 K/MM3 (134-434); RBC 3.78 M/mm3 (3.60-5.2); RDW 17.8 % (11.6-15.6); WHITE BLOOD COUNT 6.4 K/mm3 (4.0-10.0)
--- NOTE | 2018-09-16 14:08 | PN ---
Progress Note, Physician History of Present Illness: stable doing well no issues - Current Medication List Current Medications: Active Medications Apixaban (Eliquis -) 5 mg PO BID [facility] Last Admin: 09/16/18 10:44 Dose: 5 mg Buprenorphine/Naloxone (Suboxone 8mg/2mg Sl Film -) 1 each SL DAILY [facility] Last Admin: 09/16/18 10:46 Dose: Not Given Calcium Carbonate/Cholecalciferol (Os-Willy 500+D -) 2 tab PO DAILY [facility] Hydroxyzine Pamoate (Vistaril -) 50 mg PO HS PRN PRN Reason: INSOMNIA Last Admin: 09/13/18 21:10 Dose: 50 mg Piperacillin Sod/Tazobactam (Sod 4.5 gm/ Dextrose) 100 mls @ 200 mls/hr IVPB Q8H-IV [facility]; Protocol Last Admin: 09/16/18 02:10 Dose: 200 mls/hr Insulin Aspart (Novolog Vial Sliding Scale -) 1 vial SQ ACHS [facility]; Protocol Last Admin: 09/16/18 12:06 Dose: 6 units Mesalamine (Asacol Hd -) 800 mg PO TID [facility] Last Admin: 09/16/18 06:26 Dose: 800 mg Pantoprazole Sodium (Protonix -) 40 mg PO DAILY [facility] Last Admin: 09/16/18 10:44 Dose: 40 mg - Objective Vital Signs: Vital Signs Temperature 99.1 F 09/16/18 05:50 Pulse Rate 96 H 09/16/18 08:29 Respiratory Rate 18 09/16/18 08:29 Blood Pressure 122/50 L 09/16/18 08:29 O2 Sat by Pulse Oximetry (%) 97 09/16/18 09:00 Constitutional: Yes: No Distress, Calm Cardiovascular: Yes: Regular Rate and Rhythm Respiratory: Yes: Regular, CTA Bilaterally Gastrointestinal: Yes: Normal Bowel Sounds, Soft Musculoskeletal: Yes: WNL Extremities: Yes: WNL Neurological: Yes: Alert, Oriented Psychiatric: Yes: Alert, Oriented Labs: CBC, BMP 09/16/18 12:13 09/16/18 06:00 INR, PTT INR 1.45 (0.83-1.09) H 09/14/18 06:00 Assessment/Plan Problem List - Problems (1) ARF (acute renal failure) Code(s): N17.9 - ACUTE KIDNEY FAILURE, UNSPECIFIED Qualifiers: Acute renal failure type: unspecified Qualified Code(s): N17.9 - Acute kidney failure, unspecified (2) Abdominal pain Code(s): R10.9 - UNSPECIFIED ABDOMINAL PAIN (3) Depression, major, severe recurrence Code(s): F33.2 - MAJOR DEPRESSV DISORDER, RECURRENT SEVERE W/O PSYCH FEATURES (4) Fever Code(s): R50.9 - FEVER, UNSPECIFIED Qualifiers: Fever type: unspecified Qualified Code(s): R50.9 - Fever, unspecified (5) Rhabdomyolysis Code(s): M62.82 - RHABDOMYOLYSIS Qualifiers: Rhabdomyolysis type: non-traumatic Qualified Code(s): M62.82 - Rhabdomyolysis (6) Sepsis Code(s): A41.9 - SEPSIS, UNSPECIFIED ORGANISM Qualifiers: Sepsis type: sepsis due to unspecified organism Qualified Code(s): A41.9 - Sepsis, unspecified organism (7) DVT (deep venous thrombosis) Code(s): I82.409 - ACUTE EMBOLISM AND THOMBOS UNSP DEEP VN UNSP LOWER EXTREMITY (8) Anemia Code(s): D64.9 - ANEMIA, UNSPECIFIED Qualifiers: Anemia type: unspecified type Qualified Code(s): D64.9 - Anemia, unspecified (9) Chronic diarrhea Code(s): K52.9 - NONINFECTIVE GASTROENTERITIS AND COLITIS, UNSPECIFIED (10) Diabetes Code(s): E11.9 - TYPE 2 DIABETES MELLITUS WITHOUT COMPLICATIONS (11) Opioid abuse Code(s): F11.10 - OPIOID ABUSE, UNCOMPLICATED (12) Leukocytosis Code(s): D72.829 - ELEVATED WHITE BLOOD CELL COUNT, UNSPECIFIED Assessment/Plan Sigmoid microperforation, Hx of ischemic colitis/sigmoid ulcers Sepsis Fever Leukocytosis Chronic diarrhea - CDT neg LUE cephalic vein thrombosis Opiod dependence will stop iv abx switch to oral abx augmentin for couple of days rest as per the team
[2018-09-16 14:52] VITALS: PULSE 100
--- NOTE | 2018-09-16 16:14 | DS ---
Physical Exam: SUBJECTIVE: Patient seen and examined OBJECTIVE: Vital Signs Period Temp Pulse Resp BP Sys/Funes Pulse Ox Last 24 Hr 99.1 F-99.2 F 95-100 16-18 122-142/50-87 97-97 PHYSICAL EXAM GENERAL: The patient is awake, alert, and fully oriented, in no acute distress. HEAD: Normal with no signs of trauma. EYES: PERRL, extraocular movements intact, sclera anicteric, conjunctiva clear. ENT: Ears normal, nares patent, oropharynx clear without exudates, moist mucous membranes. NECK: Trachea midline, full range of motion, supple. LUNGS: Breath sounds equal, clear to auscultation bilaterally, no wheezes, no crackles, no accessory muscle use. HEART: Regular rate and rhythm, S1, S2 without murmur, rub or gallop. ABDOMEN: Soft, nontender, nondistended, normoactive bowel sounds, no guarding, no rebound, no hepatosplenomegaly, no masses. EXTREMITIES: 2+ pulses, warm, well-perfused, no edema. NEUROLOGICAL: Cranial nerves II through XII grossly intact. Normal speech, gait not observed. PSYCH: Normal mood, normal affect. SKIN: Warm, dry, normal turgor, no rashes or lesions noted. LABS Laboratory Results - last 24 hr 09/15/18 09/15/18 09/16/18 17:02 22:24 06:00 WBC RBC Hgb Hct MCV MCH MCHC RDW Plt Count MPV Sodium 140 Potassium 3.5 Chloride 108 H Carbon Dioxide 23 Anion Gap 9 BUN 4 L Creatinine 0.6 Creat Clearance w eGFR > 60 POC Glucometer 169 235 Random Glucose 202 H Calcium 7.7 L Phosphorus 2.9 Magnesium 1.5 L Total Bilirubin 0.3 AST 12 L ALT 20 Alkaline Phosphatase 57 Total Protein 4.3 L Albumin 1.5 L 09/16/18 09/16/18 09/16/18 06:00 06:21 11:45 WBC 5.9 RBC 3.22 L Hgb 8.3 L Hct 26.0 L MCV 80.7 MCH 25.9 MCHC 32.1 RDW 17.4 H Plt Count 391 D MPV 7.3 L D Sodium Potassium Chloride Carbon Dioxide Anion Gap BUN Creatinine Creat Clearance w eGFR POC Glucometer 194 258 Random Glucose Calcium Phosphorus Magnesium Total Bilirubin AST ALT Alkaline Phosphatase Total Protein Albumin 09/16/18 12:13 WBC 6.4 RBC 3.78 Hgb 9.7 L Hct 30.8 L D MCV 81.4 MCH 25.8 MCHC 31.7 L RDW 17.8 H Plt Count 511 H D MPV 7.2 L Sodium Potassium Chloride Carbon Dioxide Anion Gap BUN Creatinine Creat Clearance w eGFR POC Glucometer Random Glucose Calcium Phosphorus Magnesium Total Bilirubin AST ALT Alkaline Phosphatase Total Protein Albumin HOSPITAL COURSE: Date of Admission:09/06/18 Date of Discharge: 09/16/18 Discharge Summary Reason For Visit: ACUTE RENAL FAILURE/TOXIC EFFECT OF ACETAMINOPHEN Current Active Problems ARF (acute renal failure) (Acute) Abdominal pain (Acute) Acetaminophen toxicity (Acute) Chronic ischemic colitis (Acute) Depression, major, severe recurrence (Acute) Diabetes mellitus type 2, insulin dependent (Acute) Diverticulitis of large intestine with perforation without abscess or bleeding ( Acute) Fever (Acute) Hyperkalemia (Acute) Memory loss or impairment (Acute) Morbid obesity (Acute) Perforation of sigmoid colon (Acute) Personal history of other venous thrombosis and embolism (Acute) RLQ abdominal pain (Acute) Rhabdomyolysis (Acute) Sepsis (Acute) Transaminitis (Acute) Abdominal pain (Chronic) Condition: Improved - Instructions Diet, Activity, Other Instructions: You were admitted because you took too much of the percocet pills, causing overdose. This caused damage to your liver and kidneys. You were treated with medications to reverse the effect. It is very important that you read the instructions carefully and take the correct dose. NEVER take more than the label says to take. Taking too much can cause liver failure and even . You also reported belly pain and diarrhea. CAT scan was done which showed some air pockets in your belly. This was likely caused by the inflammation on your large bowel that was found during your colonoscopy. You were observed for a few days and given antibiotics. You were able to tolerate food without having the belly pain. You will be prescribed antibiotics which you will take by mouth for 1 week. It is important that you follow-up with GI (Dr. Sanon) as well as your surgeon. To help your diarrhea, please continue taking Asacol 800mg three times a day. Please take the following medications as prescribed: 1. Augmentin 875 mg twice a day for 1 week. 2. Magnesium 500mg once a day for 1 week. Continue your home medications as prescribed. Follow-ups: -Please follow-up with GI (Dr. Sanon) in 1 week. Call the office to schedule an appointment. -Please call [facility] (Dr. Rich) at [phone]. -Follow-up with your psychiatrist in 1-2 weeks if you do not have one the information on the one you saw here has been provided. (Dr. Watts) -Please follow-up with your primary care doctor at the medical clinic in 1-2 weeks. Call [phone] to schedule an appointment. you should have your blood counts repeated as well as your magnesium level. Call [phone] or go the ED if with any worsening of symptoms or new concerns noted. Referrals: Huma Watts MD [Staff Physician] - Johnson Sanon DO [Staff Physician] - Mayo Rich MD [Staff Physician] - Lukasz Calderón MD [Staff Physician] - Disposition: HOME - Home Medications Comprehensive Discharge Medication List: Ambulatory Orders Fenofibrate Nanocrystallized [Tricor] 145 mg PO DAILY 07/14/14 Insulin Lispro [Humalog] 5 unit SQ AC 07/14/14 Multivitamins [Multivit ([facility] Formulary)] 1 tab PO DAILY 07/14/14 Duloxetine HCl [Cymbalta] 30 mg PO DAILY 06/25/18 Ferrous Sulfate [Feosol] 325 mg PO DAILY #30 ud 07/15/18 Mesalamine [Asacol HD -] 800 mg PO TID #60 tablet. 07/15/18 Apixaban [Eliquis] 5 mg PO BID #60 tablet 08/06/18 Lisinopril 2.5 mg PO DAILY #30 tablet 08/06/18 Metformin HCl 850 mg PO BID 09/07/18 Pravastatin Sodium [Pravachol -] 80 mg PO HS 09/07/18 Sitagliptin Phosphate [Januvia] 100 mg PO DAILY 09/07/18 Amoxicillin/Potassium Clav [Augmentin 875-125 Tablet] 1 each PO BID #14 tablet 09/16/18 Calcium 500Mg/Vit-D 200 Units [Os-Willy 500+D -] 2 tab PO DAILY #30 tab 09/16/18 Magnesium Oxide 500 mg PO DAILY #7 tablet 09/16/18 Pantoprazole Sodium [Protonix -] 40 mg PO DAILY #30 tablet.ec 09/16/18 - Discharge Referral [facility]erred to [facility] No
[2018-09-16 20:04] VITALS: BP 133/67; TEMP 98.8
[2018-09-17] MEDS ORDERED: CALCIUM 500MG/VIT-D 200 UNITS COMBO TABLET (FP) PO SCH (10:00)
== END 2018-09-16 20:18 | disposition home or self-care (01) | DRG 460 ==
LOC: JER 15:04 → JERBED 23:40 → JICU 09-07 05:48 → J7W 09-07 21:03 → J4S 09-08 23:52
PROVIDERS: ADMIT Internal Medicine; ATTEND Internal Medicine
PROC: 30233N1 Transfusion of Nonautologous Red Blood Cells into Peripheral Vein, Percutaneous Approach (ICD-10-PCS; principal; 2018-09-11)
DX: N17.9 Acute kidney failure, unspecified (principal); R65.20 Severe sepsis without septic shock; A41.9 Sepsis, unspecified organism; K55.1 Chronic vascular disorders of intestine; E46 Unspecified protein-calorie malnutrition; F33.2 Major depressive disorder, recurrent severe without psychotic features; M62.82 Rhabdomyolysis; E87.2 Acidosis; R45.851 Suicidal ideations; F11.20 Opioid dependence, uncomplicated; E87.5 Hyperkalemia; I82.612 Acute embolism and thrombosis of superficial veins of left upper extremity; E66.01 Morbid (severe) obesity due to excess calories; K72.90 Hepatic failure, unspecified without coma; K71.8 Toxic liver disease with other disorders of liver; E83.39 Other disorders of phosphorus metabolism; Z68.31 Body mass index [BMI] 31.0-31.9, adult; E83.51 Hypocalcemia; E83.42 Hypomagnesemia; T40.2X1A Poisoning by other opioids, accidental (unintentional), initial encounter; F11.23 Opioid dependence with withdrawal; T39.1X1A Poisoning by 4-Aminophenol derivatives, accidental (unintentional), initial encounter; E11.9 Type 2 diabetes mellitus without complications; K21.9 Gastro-esophageal reflux disease without esophagitis; I10 Essential (primary) hypertension; Z98.84 Bariatric surgery status; Z86.718 Personal history of other venous thrombosis and embolism; Z79.01 Long term (current) use of anticoagulants; R74.0 Nonspecific elevation of levels of transaminase and lactic acid dehydrogenase [LDH]; Z79.4 Long term (current) use of insulin; R41.82 Altered mental status, unspecified; Y92.89 Other specified places as the place of occurrence of the external cause; D50.8 Other iron deficiency anemias; R76.11 Nonspecific reaction to tuberculin skin test without active tuberculosis; R31.29 Other microscopic hematuria; E86.0 Dehydration; R41.3 Other amnesia; M25.519 Pain in unspecified shoulder; M54.5 Low back pain; Z79.84 Long term (current) use of oral hypoglycemic drugs
CPT/HCPCS: 36415; 36430; 36600; 70450-TC; 71045-TC-FY; 74176-TC; 76775-TC; 76856-TC; 80048; 80053; 80076; 80307; 81003; 81015; 82140; 82272; 82375; 82436; 82550; 82553; 82803; 82945; 82962; 83050; 83520; 83540; 83550; 83605; 83690; 83735; 83930; 83935; 84100; 84133; 84155; 84157; 84165; 84166; 84300; 84484; 85025; 85027; 85610; 85730; 86038; 86225; 86256; 86592; 86617; 86663; 86664; 86665; 86694; 86735; 86765; 86787; 86788; 86789; 86850; 86870; 86900; 86901; 86902; 86922; 87040; 87070; 87086; 87205; 87324; 87449; 87476; 87529; 87802; 87899; 93005; 93010; 93971; 94010; 97116-GP; 97162-GP; 99285-25; J1644; J7030; P9038; P9058

== ENCOUNTER 2018-09-28 14:56 | Inpatient (IN) | payer OTHER ==
--- NOTE | 2018-09-28 15:57 | PDOC ---
History of Present Illness - General Stated Complaint: FALL Time Seen by Provider: 09/28/18 15:02 History Source: Patient, Other (Dipesh (delinquency prevention social worker)) Exam Limitations: Dementia - History of Present Illness Initial Comments: 09/28/18 15:50 *Poor historian Pt is a 58yo f with PMH of dementia, DM, HTN, anemia, DVT (on Eliquis), diarrhea , gastric ulcers, opiod dependence BIBA with delinquency prevention social worker with complaints of leg weakness. Pt said since yesterday she has been unable to walk. She is able to stand but feels too weak to walk. She has been moving herself on the floor since yesterday. She admits to L shoulder and elbow pain from moving herself around. She denies LOC, hitting her head, falls. She does not know why she feels weak. She also admits to dark, tarry smelly stools and LLQ abdominal pain. Denies fever, chills, cough, SOB, chest pain, n/v, numbness/tingling, loss of bowel/bladder control. PMD: [facility]:Di[facility] PMH: see hpi PSH: gastric bypass Meds: see med rec Allergies: nkda Past History - Past Medical History Allergies/Adverse Reactions: Allergies Allergy/AdvReac Type Severity Reaction Status Date / Time No Known Allergies Allergy Verified 09/06/18 15:25 Home Medications: Ambulatory Orders Fenofibrate Nanocrystallized [Tricor] 145 mg PO DAILY 07/14/14 Insulin Lispro [Humalog] 5 unit SQ AC 07/14/14 Multivitamins [Multivit ([facility] Formulary)] 1 tab PO DAILY 07/14/14 Duloxetine HCl [Cymbalta] 30 mg PO DAILY 06/25/18 Ferrous Sulfate [Feosol] 325 mg PO DAILY #30 ud 07/15/18 Mesalamine [Asacol HD -] 800 mg PO TID #60 tablet. 07/15/18 Apixaban [Eliquis] 5 mg PO BID #60 tablet 08/06/18 Lisinopril 2.5 mg PO DAILY #30 tablet 08/06/18 Metformin HCl 850 mg PO BID 09/07/18 Pravastatin Sodium [Pravachol -] 80 mg PO HS 09/07/18 Sitagliptin Phosphate [Januvia] 100 mg PO DAILY 09/07/18 Amoxicillin/Potassium Clav [Augmentin 875-125 Tablet] 1 each PO BID #14 tablet 09/16/18 Calcium 500Mg/Vit-D 200 Units [Os-Willy 500+D -] 2 tab PO DAILY #30 tab 09/16/18 Magnesium Oxide 500 mg PO DAILY #7 tablet 09/16/18 Pantoprazole Sodium [Protonix -] 40 mg PO DAILY #30 tablet.ec 09/16/18 Anemia: Yes Asthma: No Cancer: No Cardiac Disorders: No CVA: No COPD: No CHF: No Dementia: No Diabetes: Yes (iddm) GI Disorders: Yes (GERD) Disorders: No HTN: Yes Hypercholesterolemia: Yes Liver Disease: No Seizures: No Thyroid Disease: No - Surgical History Abdominal Surgery: No Appendectomy: No Cardiac Surgery: No Cholecystectomy: Yes Gastric Stapling: No ([facility]) Lung Surgery: No Neurologic Surgery: No Orthopedic Surgery: No - Immunization History Immunization Up to Date: Yes - Suicide/Smoking/Psychosocial Hx Smoking Status: No Smoking History: Never smoked Have you smoked in the past 12 months: No Number of Cigarettes Smoked Daily: 0 Hx Alcohol Use: No Drug/Substance Use Hx: No Substance Use Type: Opiates Hx Substance Use Treatment: No Medical Decision Making - Medical Decision Making 09/28/18 18:41 Pt is a 58yo f with PMH of dementia, DM, HTN, anemia, DVT (on Eliquis), diarrhea , gastric ulcers, opiod dependence BIBA with delinquency prevention social worker with complaints of leg weakness. Vital signs not placed in computer. I checked vitals: BP 126/74, HR 118, O2 100 % RA temp 101.3 rectal. Sepsis workup ordered. Delay in order due to vital signs not being placed and pt needing peripheral line with ultrasound. Line was placed in R forearm and R EJ.
[2018-09-28] MEDS ORDERED: PIPERACILLIN/TAZOB 3.375 GM 3.375 GM in DEXTROSE 5%-WATER - 50 ML IVPB ONE (18:36)
[2018-09-28] MEDS ORDERED: ACETAMINOPHEN 1000 MG/100 ML VIAL (NON FORMULARY) IVPB ONE (18:36)
[2018-09-28] MEDS ORDERED: SODIUM CHLORIDE 1,000 ML IV STA (18:36)
[2018-09-28] MEDS ORDERED: SODIUM CHLORIDE 0.9% 500 ML INFUS.BAG IV ONE (19:27)
[2018-09-28] MEDS ORDERED: VANCOMYCIN 1 GRAM (PRE-DOCKED) 1,000 MG/250 ML BAG IVPB ONE ×2 (19:32→19:51)
[2018-09-28 19:42] LABS: BASO % 0.6 % (0-2.0); EOS % 4.4 % (0-4.5); HEMATOCRIT 31.7 % (32.4-45.2); LYMPH % 19.5 % (8-40); MCH 25.5 pg (25.7-33.7); MCHC 31.6 g/dl (32.0-36.0); MEAN CELL VOLUME 80.6 fl (80-96); MONO % 8.9 % (3.8-10.2); NEUT % 66.6 % (42.8-82.8); PLATELET COUNT 387 K/MM3 (134-434); RBC 3.94 M/mm3 (3.60-5.2); RDW 17.7 % (11.6-15.6)
[2018-09-28 19:44] LABS: VENOUS PC02 41.8 mmHg (38-52); VENOUS PH 7.4 (7.32-7.42); VENOUS PO2 45.4 mmHg (28-48)
[2018-09-28] MEDS ORDERED: ACETAMINOPHEN INJECTION 100 ML IVPB ONE (19:51)
[2018-09-28] MEDS ORDERED: PIPERACILLIN/TAZOB 3.375 GM 3.375 GM/50 ML BAG IVPB ONE (19:51)
[2018-09-28 20:11] LABS: INR 1.31 (0.83-1.09); PROTHROMBIN TIME (PATIENT) 15.5 SEC (9.7-13.0)
[2018-09-28 20:13] LABS: ACTIVATED PTT 23.9 SECONDS (25.2-36.5)
--- NOTE | 2018-09-28 20:51 | PDOC ---
Attending Attestation - Resident Resident Name: Violeta Evangelista - ED Attending Attestation I have performed the following: I have examined & evaluated the patient, The case was reviewed & discussed with the resident, I agree w/resident's findings & plan, Exceptions are as noted - HPI HPI: 09/28/18 20:50 58 yo F h/o dementia, htn dm hld, here with c/o weaknesss. pt states she has deangelo unable to walk at home. was crawling around on the floor. no f/c denies cough. no urinary complaints. no n/v. pt is poor historian but states she just feels generalized weakness especially in her legs. unsure why. denies cp or sob. 09/28/18 22:52 - Physicial Exam PE: 09/28/18 20:50 awake alert dry mucous membranes. lungs clear bilaterally heart reg tachycardia. abd soft nt nd. ext wwp. nuero alert oriented c 3. moves all four ext 5/5. 09/28/18 22:53 - Medical Decision Making 09/28/18 22:54 differential sepsis, uti, pneumonia, anemia, renal failure, dehydration, exam nonfocal nuerologically. plan septic workup, cxr ua cultures. iv hydration. will cover with abx for sepsis, and admit to hospital. pt difficult access, EJ placed. tolerated well.
[2018-09-28 20:53] LABS: ALBUMIN 2.3 g/dl (3.4-5.0); ALK PHOS 88 U/L (45-117); ANION GAP 11 MMOL/L (8-16); BILIRUBIN,TOTAL 0.4 mg/dL (0.2-1); BLOOD UREA NITROGEN 7 mg/dL (7-18); CALCIUM 8.7 mg/dL (8.5-10.1); CHLORIDE 108 mmol/L (98-107); CO2 25 mmol/L (21-32); CREATININE 0.6 mg/dL (0.55-1.3); GLUCOSE,RANDOM 195 mg/dL (74-106); POTASSIUM 4.1 mmol/L (3.5-5.1); SGOT/AST 13 U/L (15-37); SGPT/ALT 13 U/L (13-61); SODIUM 144 mmol/L (136-145); TOT PROT 5.3 g/dl (6.4-8.2)
[2018-09-28 20:59] LABS: URINE APPEARANCE CLEAR; URINE BILIRUBIN NEGATIVE (<2.0 mg/dL); URINE COLOR YELLOW; URINE GLUCOSE (UA) 3+ (NEGATIVE); URINE KETONE NEGATIVE (NEGATIVE); URINE LEUK ESTERASE NEGATIVE (NEGATIVE); URINE NITRITE NEGATIVE (NEGATIVE); URINE PROTEIN NEGATIVE (NEGATIVE)
--- NOTE | 2018-09-29 01:35 | HP ---
CHIEF COMPLAINT: swollen feet PCP: HISTORY OF PRESENT ILLNESS: Patient is a 58 y/o female with a history of opioid abuse, HTN, IDDM, anemia, ischemic colitis, DVT on elliquis, and left humeral fracture who presents with swelling of her left feet. She reports this swelling has been over the course of two days. She also recently had a mechanical fall where she slipped on a slippery sheet resulting in rug burn on her knees. She denies any head trauma. She reports she is feels weak and needs PT but she is still able to ambulate on her own. She has multiple admissions the most recent from an opioid overdose. She has poor outpaitent follow up and is not always compliant with her medications. When asked if she has missed any doses of her elliquis she states "it's possible". She also complains of pain at her left shoulder from an old humeral fractre and calf tenderness. Patient states she has also been feeling feverish. She denies shortness of breath, chest pain, nausea, or diarrhea. ER course was notable for: (1) (2) (3) Recent Travel: PAST MEDICAL HISTORY: opioid abuse, HTN, IDDM, anemia, ischemic colitis, DVT on elliquis, and left humeral fracture PAST SURGICAL HISTORY: gastric bypass Social History: Smoking: Alcohol: Drugs: Family History: Allergies No Known Allergies Allergy (Verified 09/06/18 15:25) HOME MEDICATIONS: Home Medications Medication Instructions Recorded Fenofibrate Nanocrystallized 145 mg PO DAILY 07/14/14 [Tricor] Insulin Lispro [Humalog] 5 unit SQ AC 07/14/14 Multivitamins [Multivit ([facility] 1 tab PO DAILY 07/14/14 Formulary)] Duloxetine HCl [Cymbalta] 30 mg PO DAILY 06/25/18 Ferrous Sulfate [Feosol] 325 mg PO DAILY #30 ud 07/15/18 Mesalamine [Asacol HD -] 800 mg PO TID #60 tablet. 07/15/18 Apixaban [Eliquis] 5 mg PO BID #60 tablet 08/06/18 Lisinopril 2.5 mg PO DAILY #30 tablet 08/06/18 Metformin HCl 850 mg PO BID 09/07/18 Pravastatin Sodium [Pravachol -] 80 mg PO HS 09/07/18 Sitagliptin Phosphate [Januvia] 100 mg PO DAILY 09/07/18 Calcium 500Mg/Vit-D 200 Units 2 tab PO DAILY #30 tab 09/16/18 [Os-Willy 500+D -] Magnesium Oxide 500 mg PO DAILY #7 tablet 09/16/18 Pantoprazole Sodium [Protonix -] 40 mg PO DAILY #30 tablet.ec 09/16/18 REVIEW OF SYSTEMS CONSTITUTIONAL: fever Absent: chills, diaphoresis, generalized weakness, malaise, loss of appetite, weight change HEENT: Absent: rhinorrhea, nasal congestion, throat pain, throat swelling, difficulty swallowing, mouth swelling, ear pain, eye pain, visual changes CARDIOVASCULAR: Absent: chest pain, syncope, palpitations, irregular heart rate, lightheadedness , peripheral edema RESPIRATORY: Absent: cough, shortness of breath, dyspnea with exertion, orthopnea, wheezing, stridor, hemoptysis GASTROINTESTINAL: Absent: abdominal pain, abdominal distension, nausea, vomiting, diarrhea, constipation, melena, hematochezia GENITOURINARY: Absent: dysuria, frequency, urgency, hesitancy, hematuria, flank pain, genital pain MUSCULOSKELETAL: weakness Absent: myalgia, arthralgia, joint swelling, back pain, neck pain SKIN: Absent: rash, itching, pallor HEMATOLOGIC/IMMUNOLOGIC: Absent: easy bleeding, easy bruising, lymphadenopathy, frequent infections ENDOCRINE: Absent: unexplained weight gain, unexplained weight loss, heat intolerance, cold intolerance NEUROLOGIC: Absent: headache, focal weakness or paresthesias, dizziness, unsteady gait, seizure, mental status changes, bladder or bowel incontinence PSYCHIATRIC: Absent: anxiety, depression, suicidal or homicidal ideation, hallucinations. PHYSICAL EXAMINATION Vital Signs - 24 hr 09/28/18 09/28/18 16:00 16:30 Temperature 101.4 F H 101.9 F H Pulse Rate 120 H Respiratory 20 Rate Blood Pressure 127/78 O2 Sat by Pulse 99 Oximetry (%) GENERAL: Awake, alert, and fully oriented, in no acute distress. HEAD: Normal with no signs of trauma. EYES: Pupils equal, round and reactive to light, extraocular movements intact, sclera anicteric, conjunctiva clear. EARS, NOSE, THROAT: Moist mucous membranes. NECK: Normal range of motion LUNGS: Breath sounds equal, clear to auscultation bilaterally. No wheezes, and no crackles. No accessory muscle use. HEART:tachycardic, normal S1 and S2 without murmur, rub or gallop. ABDOMEN: Soft, mild tenderness RUQ, not distended, normoactive bowel sounds, no guarding, no rebound, no masses. MUSCULOSKELETAL: 5/5 LE strength UPPER EXTREMITIES: 2+ pulses, warm, well-perfused. tenderness to left shoulder palpation and left forearm LOWER EXTREMITIES: 2+ pulses, warm, well-perfused. , left leg slightly more swollen then right, positive left germán sign NEUROLOGICAL: Cranial nerves II-XII intact. Normal speech. PSYCHIATRIC: Cooperative. Good eye contact. Appropriate mood and affect. SKIN: 4 small 1x1 sacral ulcers, mildly erythematous border, no pus, stage 2 Laboratory Results - last 24 hr CBC, BMP 09/28/18 19:20 09/28/18 19:20 Urine Test Results Urine Color Yellow 09/28/18 17:46 Urine Appearance Clear 09/28/18 17:46 Urine pH 7.0 (5.0-8.0) D 09/28/18 17:46 Ur Specific [place] 1.012 (1.010-1.035) 09/28/18 17:46 Urine Protein Negative (NEGATIVE) 09/28/18 17:46 Urine Glucose (UA) 3+ (NEGATIVE) H 09/28/18 17:46 Urine Ketones Negative (NEGATIVE) 09/28/18 17:46 Urine Blood Negative (NEGATIVE) 09/28/18 17:46 Urine Nitrite Negative (NEGATIVE) 09/28/18 17:46 Urine Bilirubin Negative (<2.0 mg/dL) 09/28/18 17:46 Ur Leukocyte Esterase Negative (NEGATIVE) 09/28/18 17:46 ASSESSMENT/PLAN: Patient is a 58 y/o female with a history of opioid abuse, HTN, IDDM, anemia, ischemic colitis, DVT on elliquis, and left humeral fracture who presents wit fever and tachycardia. #fever and tachycardia, PE vs sigmoid pneumoperitoneum vs sacral ulcer - f/u CTA - continue patients elliquis - f/u arterial duplex of LLE - continue Zosyn 3.375 mg q6h - f/u Bobde, f/u blood cultures - LR @ 100 - sacral ulcers do not appear infectious, no WBC, question of patient completing outpatient augmentin #DVT - doppler of LLE : DVT of left common femoral and left popliteal - continue patients home elliquis, will likely need life long anticoagulation - past HIV and Hep C tests negative in the past - Wells score 9 #sigmoid pneumoperitoneum - Abd CT: equivocal persistent visualization of small focus of containe pneumopaeritoneum at right lateral border of sigmoid colon, same as last CT - per GI and surgery, no indication for surgery at that time ( last admission 09/06) - continue Zosyn #DM - A1C - SS - hold po meds - diabetic diet #anemia - monitor - consider transfusion if below 7 - patients Hgb higher then past few visits #HTN - hold medications, resume once clinically indicated #chronic pain - tylenol 650 q4h prn - hx of left humeral fracture - last admission for percocet overdose, known opioid dependence - NSAIDS contraindicated with patients hx of gastric ulcers Visit type - Emergency Visit Emergency Visit: Yes ED Registration Date: 09/29/18 Care time: The patient presented to the Emergency Department on the above date and was hospitalized for further evaluation of their emergent condition. - New Patient This patient is new to me today: Yes Date on this admission: 09/29/18 - Critical Care Critical Care patient: No
--- NOTE | 2018-09-29 01:53 | PN ---
Teaching Attending Note Name of Resident: Maylin Mcdermott ATTENDING PHYSICIAN STATEMENT I saw and evaluated the patient. I reviewed the resident's note and discussed the case with the resident. I agree with the resident's findings and plan as documented. SUBJECTIVE: Patient is a 58 y/o CF with a complex PMH involving multiple DVTs (LUE, RLE), opiate dependence, anemia, IDDM, suspected ischemic collitis, HTN, HLD. She recently was admitted to the hospital for percocet overdose and was found to have pneumoperitoneum likely due to sigmoid microperforation due to diverticulitis and ischemic collitis. She was seen by ID and clifton and discharged on a course of augmentin. She is noncompliant with medications at home intermittently and is a poor historian; we need to get her pill bottles and do a pill count. She tells me that she is here because of leg swelling and pain; ER notes say that she is weak and has been 'crawling around.' She does have calf tenderness evident on the L-side. Resident of record is PCP of hers in clinic and tells me that she has been known to have compliance issues with eliquis, etc. in the past. She is tachycardic and febrile but not septic appearing on presentation with negative lactate. She has a benign abdominal examination, benign pulmonary exam; she does have some sacral wounds which are mildly purulent but not probing to bone, etc. and appear to be from lying in bed. She will be admitted to the medicine service on telemetry. 10 sys ROS done and negative aside from HPI FH asked and noncontributory Social hx significant for poor functional status, depends on boyfriend for medication admin but he sometimes forgets. Denies EtOh or tobacco. Has been documented as having opioid dependence and she did have a recent OD PMH and PSH per chart OBJECTIVE: VSS, labs and imaging (new and old CTs) reviewed NAD, AAO, resting in bed Tachycardic, regular rhythm, s1/2 Lungs CTAB with sym exp NT ND +BS EJ inserted, no JVD, trachea midline ASSESSMENT AND PLAN: Mrs. Knox presents with a fever and tachycardia complaining of leg swelling; she has a known history of DVTs and is likely noncompliant with her eliquis. She has a recent finding of pneumoperitoneum. 1) Fever and Tachycardia -Negative white count and lactate; ddx is broad. She has potential sources for sepsis and also has the potential of having a pulmonary embolism as she is likely noncompliant with her NOAC. -The sources for sepsis would include the sigmoid microperforation and the sacral wounds. She was adequately managed but questionably did not complete the augmentin as an outpatient. Therefore as she was on zosyn before being converted to PO, restart zosyn which would likely cover both sources. Followup blood and wound cultures and get wound care. -The other explanation in the setting of noncompliance with AC would be PE or new DVT; given the LLE calf tenderness will check doppler. Check CTA. Also will continue her on her home eliquis. Well's score for PE is 9. -IVF 2) History of Sigmoid Microperforation with pneumoperitoneum -Known from last visit; seen on imaging. See #1 for further commentary. -Consulting ID (Dr. Veronica saw last time). 3) H/O Multiple DVTs -Likely needs lifelong AC; resuming home eliquis. Please see #1 for further discussion 4) IDDM -SSI 5) Anemia -XF goal >7; monitor CBC 6) HTN -Hold home antihypertensives for now, resume when clinically indicated 7) ?Fall/extended time on ground/weakness -Consulting PT/OT -CK negative 8) H/O gastric bypass -Followup labs as outpatient (vitamins, etc.) 9) R-ovarian fullness on CT -Obtain non-emergent US; likely can be done as outpatient. Full Code
[2018-09-29] MEDS ORDERED: PIPERACILLIN/TAZOB 2.25 GM 2.25 GM in DEXTROSE 5%-WATER - 50 ML IVPB SCH (03:00)
[2018-09-29] MEDS: APIXABAN 5 MG TABLET PO SCH ×3 (04:36→21:16)
[2018-09-29] MEDS: LACTATED RINGERS SOLUTION 1,000 ML IV SCH (04:36)
[2018-09-29] MEDS ORDERED: APIXABAN 5 MG TABLET PO ONE (05:07)
[2018-09-29] MEDS ORDERED: PIPERACILLIN/TAZOB 2.25 GM 2.25 GM/50 ML BAG IVPB ONE (05:08)
[2018-09-29] MEDS ORDERED: PIPERACILLIN/TAZOB 3.375 GM 3.375 GM in DEXTROSE 5%-WATER - 50 ML IVPB SCH (05:30)
[2018-09-29] MEDS ORDERED: CLINDAMYCIN HCL 150 MG CAPSULE (FP) PO SCH (06:00)
[2018-09-29] MEDS ORDERED: MESALAMINE 800 MG TABLET.DR PO SCH ×2 (08:00→10:00)
[2018-09-29] MEDS: MESALAMINE 800 MG TABLET.DR PO SCH ×3 (08:06→17:25)
[2018-09-29 09:38] LABS: HEMATOCRIT 31.9 % (32.4-45.2); HEMOGLOBIN 10.2 GM/dL (10.7-15.3); MCH 25.9 pg (25.7-33.7); MCHC 32.1 g/dl (32.0-36.0); MEAN CELL VOLUME 80.6 fl (80-96); MEAN PLT VOLUME 7.4 fl (7.5-11.1); PLATELET COUNT 331 K/MM3 (134-434); RBC 3.96 M/mm3 (3.60-5.2); RDW 17.7 % (11.6-15.6); WHITE BLOOD COUNT 6.7 K/mm3 (4.0-10.0)
[2018-09-29] MEDS ORDERED: MAGNESIUM OXIDE 500 MG PO SCH (10:00)
[2018-09-29] MEDS ORDERED: PT OWN MED DRAWER 7, Y5N ONE (10:03)
[2018-09-29] MEDS: DULoxetine HCL 30 MG CAPSULE.DR (FP) PO SCH (10:06)
[2018-09-29] MEDS: FERROUS SO4 325 MG TABLET (FP) PO SCH (10:07)
[2018-09-29] MEDS: MAGNESIUM OXIDE 400 MG TABLET (FP) PO SCH (10:07)
[2018-09-29] MEDS: CALCIUM 500MG/VIT-D 200 UNITS COMBO TABLET (FP) PO SCH (10:07)
[2018-09-29 10:08] LABS: ANION GAP 8 MMOL/L (8-16); BLOOD UREA NITROGEN 6 mg/dL (7-18); CALCIUM 8.3 mg/dL (8.5-10.1); CHLORIDE 106 mmol/L (98-107); CO2 27 mmol/L (21-32); CREATININE 0.6 mg/dL (0.55-1.3); GLUCOSE,RANDOM 207 mg/dL (74-106); POTASSIUM 3.7 mmol/L (3.5-5.1); SODIUM 142 mmol/L (136-145)
[2018-09-29] MEDS: PANTOPRAZOLE 40 MG TABLET (FP) PO SCH (10:08)
[2018-09-29] MEDS: FENOFIBRIC ACID 135 MG CAP PO SCH (10:08)
[2018-09-29] MEDS: MULTIVITAMINS (DAILY MVI) TABLET (FP) PO SCH (10:08)
--- NOTE | 2018-09-29 12:28 | CONSULT ---
- Consultation REQUESTING PROVIDER: CONSULT REQUEST: We have been asked to surgically evaluate this patient for sacral decub. PCP:Christie Ortiz HISTORY OF PRESENT ILLNESS: 58yo F was seen in the ED. Pt states that she lives in a snf and that she is ambulatory with a walker. Pt denies previous decubitus ulcers, but is not the best historian. PMHx: DM, HLD, HTN Home Medications Medication Instructions Recorded Fenofibrate Nanocrystallized 145 mg PO DAILY 07/14/14 [Tricor] Insulin Lispro [Humalog] 5 unit SQ AC 07/14/14 Multivitamins [Multivit ([facility] 1 tab PO DAILY 07/14/14 Formulary)] Duloxetine HCl [Cymbalta] 30 mg PO DAILY 06/25/18 Ferrous Sulfate [Feosol] 325 mg PO DAILY #30 ud 07/15/18 Mesalamine [Asacol HD -] 800 mg PO TID #60 tablet. 07/15/18 Apixaban [Eliquis] 5 mg PO BID #60 tablet 08/06/18 Lisinopril 2.5 mg PO DAILY #30 tablet 08/06/18 Metformin HCl 850 mg PO BID 09/07/18 Pravastatin Sodium [Pravachol -] 80 mg PO HS 09/07/18 Sitagliptin Phosphate [Januvia] 100 mg PO DAILY 09/07/18 Calcium 500Mg/Vit-D 200 Units 2 tab PO DAILY #30 tab 09/16/18 [Os-Willy 500+D -] Magnesium Oxide 500 mg PO DAILY #7 tablet 09/16/18 Pantoprazole Sodium [Protonix -] 40 mg PO DAILY #30 tablet.ec 09/16/18 Allergies Allergy/AdvReac Type Severity Reaction Status Date / Time No Known Allergies Allergy Verified 09/06/18 15:25 REVIEW OF SYSTEMS: CONSTITUTIONAL: Absent: fever, chills, diaphoresis, generalized weakness, malaise, loss of appetite, weight change MUSCULOSKELETAL: Absent: myalgia, arthralgia, joint swelling, back pain, neck pain SKIN: Absent: rash, itching, pallor HEMATOLOGIC/IMMUNOLOGIC: Absent: easy bleeding, easy bruising PHYSICAL EXAM: GENERAL: Awake, alert, and fully oriented, in no acute distress. HEAD: Normal with no signs of trauma. EYES: PERRL, sclera anicteric, conjunctiva clear. NECK: Normal ROM BACK: Multiple stage 2 ulcerations noted on sacrum, two largest ulcerations have fibrinous tissues. MUSCULOSKELETAL: Normal ROM at all joints. No bony deformities or tenderness. No CVA tenderness. NEUROLOGICAL: Normal speech, gait not observed. PSYCH: Cooperative. Good eye contact. Appropriate mood and affect. SKIN: Warm, dry, normal turgor, no rashes or lesions noted. Vital Signs Temperature 99.7 F H 09/29/18 10:25 Pulse Rate 90 09/29/18 10:25 Respiratory Rate 15 09/29/18 10:25 Blood Pressure 134/71 09/29/18 10:25 O2 Sat by Pulse Oximetry (%) 99 09/28/18 16:30 Lab Results WBC 6.7 K/mm3 (4.0-10.0) 09/29/18 09:30 RBC 3.96 M/mm3 (3.60-5.2) 09/29/18 09:30 Hgb 10.2 GM/dL (10.7-15.3) L 09/29/18 09:30 Hct 31.9 % (32.4-45.2) L 09/29/18 09:30 MCV 80.6 fl (80-96) 09/29/18 09:30 MCHC 32.1 g/dl (32.0-36.0) 09/29/18 09:30 RDW 17.7 % (11.6-15.6) H 09/29/18 09:30 Plt Count 331 K/MM3 (134-434) 09/29/18 09:30 Sodium 142 mmol/L (136-145) 09/29/18 09:30 Potassium 3.7 mmol/L (3.5-5.1) 09/29/18 09:30 Chloride 106 mmol/L (98-107) 09/29/18 09:30 Carbon Dioxide 27 mmol/L (21-32) 09/29/18 09:30 Anion Gap 8 MMOL/L (8-16) 09/29/18 09:30 BUN 6 mg/dL (7-18) L 09/29/18 09:30 Creatinine 0.6 mg/dL (0.55-1.3) 09/29/18 09:30 Random Glucose 207 mg/dL (74-106) H 09/29/18 09:30 Calcium 8.3 mg/dL (8.5-10.1) L 09/29/18 09:30 Blood Type O POSITIVE 09/28/18 19:20 Antibody Screen Positive H 09/28/18 19:20 INR 1.31 (0.83-1.09) H 09/28/18 19:20 Problem List - Problems (1) Decubitus ulcer of sacral area Assessment/Plan: Plan -recommend santyl and foam dressing -q2hr bed turning, OOB/ambulate -consider air mattress Please call Vascular surgery if any changes Code(s): L89.159 - PRESSURE ULCER OF SACRAL REGION, UNSPECIFIED STAGE
[2018-09-29] MEDS: INSULIN SLIDING SCALE (NOVOLOG) 1 VIAL SQ SCH ×4 (12:43→21:19)
--- NOTE | 2018-09-29 14:17 | PN ---
Physical Exam: SUBJECTIVE: Patient seen and examined at bedside. Patient states she is feeling ok, she denies any trouble breathing or chest pain. She states the pain in her left leg is better and is not having any abdominal pain. Her duplex study showed a L femoral and popliteal DVT, her CTA showed pulmonary emboli within the segmental and subsegmental branches of the right and left lower lobe pulmonary arteries. OBJECTIVE: Vital Signs Period Temp Pulse Resp BP Sys/Funes Pulse Ox Last 24 Hr 99.7 F-101.9 F 90-120 15-20 127-134/71-78 99 GENERAL: The patient is awake, alert, in no acute distress. EYES: no scleral icterus NECK: no JVD, no lymphadenopathy appreciated LUNGS: CTA B/L; no rales, rhonchi or wheezing HEART: Regular rate and rhythm, S1, S2 without murmur, rub or gallop. ABDOMEN: Soft, nontender, nondistended, normoactive bowel sounds, no guarding, no rebound, no hepatosplenomegaly, no masses. EXTREMITIES: 2+ pulses, warm, well-perfused, no edema. NEUROLOGICAL: Cranial nerves II through XII grossly intact. Normal speech, gait not observed. PSYCH: Normal mood, normal affect. SKIN: Warm, dry, normal turgor, no rashes or lesions noted Laboratory Results - last 24 hr 09/28/18 09/28/18 09/28/18 15:54 17:46 19:20 WBC RBC Hgb Hct MCV MCH MCHC RDW Plt Count MPV Absolute Neuts (auto) Neutrophils % Lymphocytes % Monocytes % Eosinophils % Basophils % Nucleated RBC % PT with INR INR PTT (Actin FS) VBG pH POC VBG pCO2 POC VBG pO2 Mixed VBG HCO3 Sodium Potassium Chloride Carbon Dioxide Anion Gap BUN Creatinine Creat Clearance w eGFR Random Glucose Lactic Acid Calcium Total Bilirubin AST ALT Alkaline Phosphatase Creatine Kinase Troponin I Total Protein Albumin Urine Color Yellow Urine Appearance Clear Urine pH 7.0 D Ur Specific [place] 1.012 Urine Protein Negative Urine Glucose (UA) 3+ H Urine Ketones Negative Urine Blood Negative Urine Nitrite Negative Urine Bilirubin Negative Urine Urobilinogen 2.0 H Ur Leukocyte Esterase Negative Stool Occult Blood Negative Salicylates Acetaminophen Alcohol, Quantitative Blood Type O POSITIVE Antibody Screen Positive H Antibody Identification Anti-k Antigen Identification No Result Required. 09/28/18 09/28/18 09/28/18 19:20 19:20 19:20 WBC 8.0 RBC 3.94 Hgb 10.0 L Hct 31.7 L MCV 80.6 MCH 25.5 L MCHC 31.6 L RDW 17.7 H Plt Count 387 D MPV 8.0 D Absolute Neuts (auto) 5.3 Neutrophils % 66.6 Lymphocytes % 19.5 D Monocytes % 8.9 Eosinophils % 4.4 Basophils % 0.6 Nucleated RBC % 0 PT with INR 15.50 H INR 1.31 H PTT (Actin FS) 23.9 L VBG pH 7.40 D POC VBG pCO2 41.8 D POC VBG pO2 45.4 Mixed VBG HCO3 25.3 H Sodium Potassium Chloride Carbon Dioxide Anion Gap BUN Creatinine Creat Clearance w eGFR Random Glucose Lactic Acid Calcium Total Bilirubin AST ALT Alkaline Phosphatase Creatine Kinase Troponin I Total Protein Albumin Urine Color Urine Appearance Urine pH Ur Specific [place] Urine Protein Urine Glucose (UA) Urine Ketones Urine Blood Urine Nitrite Urine Bilirubin Urine Urobilinogen Ur Leukocyte Esterase Stool Occult Blood Salicylates Acetaminophen Alcohol, Quantitative Blood Type Antibody Screen Antibody Identification Antigen Identification 09/28/18 09/28/18 09/28/18 19:20 19:20 19:54 WBC RBC Hgb Hct MCV MCH MCHC RDW Plt Count MPV Absolute Neuts (auto) Neutrophils % Lymphocytes % Monocytes % Eosinophils % Basophils % Nucleated RBC % PT with INR INR PTT (Actin FS) VBG pH POC VBG pCO2 POC VBG pO2 Mixed VBG HCO3 Sodium 144 Potassium 4.1 Chloride 108 H Carbon Dioxide 25 Anion Gap 11 BUN 7 Creatinine 0.6 Creat Clearance w eGFR > 60 Random Glucose 195 H Lactic Acid 1.5 Calcium 8.7 Total Bilirubin 0.4 AST 13 L ALT 13 Alkaline Phosphatase 88 Creatine Kinase 49 70 Troponin I 0.04 0.02 Total Protein 5.3 L Albumin 2.3 L Urine Color Urine Appearance Urine pH Ur Specific [place] Urine Protein Urine Glucose (UA) Urine Ketones Urine Blood Urine Nitrite Urine Bilirubin Urine Urobilinogen Ur Leukocyte Esterase Stool Occult Blood Salicylates < 1.7 L Acetaminophen < 2.0 L Alcohol, Quantitative < 3.0 Blood Type Antibody Screen Antibody Identification Antigen Identification 09/29/18 09/29/18 09/29/18 02:40 09:30 09:30 WBC 6.7 RBC 3.96 Hgb 10.2 L Hct 31.9 L MCV 80.6 MCH 25.9 MCHC 32.1 RDW 17.7 H Plt Count 331 MPV 7.4 L Absolute Neuts (auto) Neutrophils % Lymphocytes % Monocytes % Eosinophils % Basophils % Nucleated RBC % PT with INR INR PTT (Actin FS) VBG pH POC VBG pCO2 POC VBG pO2 Mixed VBG HCO3 Sodium 142 Potassium 3.7 Chloride 106 Carbon Dioxide 27 Anion Gap 8 BUN 6 L Creatinine 0.6 Creat Clearance w eGFR > 60 Random Glucose 207 H Lactic Acid 1.4 Calcium 8.3 L Total Bilirubin AST ALT Alkaline Phosphatase Creatine Kinase Troponin I Total Protein Albumin Urine Color Urine Appearance Urine pH Ur Specific [place] Urine Protein Urine Glucose (UA) Urine Ketones Urine Blood Urine Nitrite Urine Bilirubin Urine Urobilinogen Ur Leukocyte Esterase Stool Occult Blood Salicylates Acetaminophen Alcohol, Quantitative Blood Type Antibody Screen Antibody Identification Antigen Identification Active Medications Generic Name Dose Route Start Last Admin Trade Name Freq PRN Reason Stop Dose Admin Acetaminophen 650 mg 09/29/18 01:02 Tylenol - PO Q4H PRN PAIN LEVEL 6-10 Apixaban 5 mg 09/29/18 01:15 09/29/18 10:07 Eliquis - PO 5 mg BID YAMILKA Administration Atorvastatin Calcium 20 mg 09/29/18 22:00 Lipitor - PO HS YAMILKA Calcium Carbonate/Cholecalciferol 2 tab 09/29/18 10:00 09/29/18 10:07 Os-Willy 500+D - PO 2 tab DAILY YAMILKA Administration Duloxetine HCl 30 mg 09/29/18 10:00 09/29/18 10:06 Cymbalta - PO 30 mg DAILY YAMILKA Administration Fenofibric Acid 135 mg 09/29/18 10:00 09/29/18 10:08 Trilipix - PO 135 mg DAILY YAMILKA Administration Ferrous Sulfate 325 mg 09/29/18 10:00 09/29/18 10:07 Feosol - PO 325 mg DAILY YAMILKA Administration Lactated Ringer's 1,000 mls @ 100 mls/hr 09/29/18 01:15 09/29/18 04:36 Lactated Ringers Solution IV 100 mls/hr ASDIR YAMILKA Administration Piperacillin Sod/Tazobactam 50 mls @ 100 mls/hr 09/29/18 10:00 Sod 3.375 gm/ Dextrose IVPB Q8H-IV YAMILKA Protocol Insulin Aspart 1 vial 09/29/18 07:00 Novolog Vial Sliding Scale - SQ ACHS [facility] Protocol Magnesium Oxide 400 mg 09/29/18 10:00 09/29/18 10:07 Mag-Ox - PO 400 mg DAILY YAMILKA Administration Mesalamine 800 mg 09/29/18 08:00 09/29/18 08:06 Asacol Hd - PO 800 mg TIDCM YAMILKA Administration Multivitamins/Minerals/Vitamin C 1 tab 09/29/18 10:00 09/29/18 10:08 Tab-A-Vit - PO 1 tab DAILY YAMILKA Administration Pantoprazole Sodium 40 mg 09/29/18 10:00 09/29/18 10:08 Protonix - PO 40 mg DAILY YAMILKA Administration ASSESSMENT/PLAN: 58 y/o with PMH of DVTs, sigmoid microperforation, DM, anemia, HTN, presents with left lower extremity pain and swelling, sacral ulcers, was febrile and tachycardic upon arrival now found to have right and left lower lobe segmental PEs and DVTs. #) Pulmonary Embolism unclear how compliant the patient is with her eliquis -restarted the patients home dose of eliquis - 5mg BID -Dr. Mary consulted- regarding options of long-term AC -f/u his recommendations #) DM -holding home anti-diabetics -ISS -BGMS ACHS #) Sacral Ulcers -seen by surgery this am; appreciate their recs -they recommended santyl and foam dressing -q2h turning -no need for antibiotics as the ulcers do not look infected #)HTN -resume home medications #)HLD -resume lipitor 20 daily F/E/N LR @100mls/hr replete electrolytes when necessary diabetic diet Problem List - Problems (1) Pulmonary embolism Code(s): I26.99 - OTHER PULMONARY EMBOLISM WITHOUT ACUTE COR PULMONALE (2) HTN (hypertension) Code(s): I10 - ESSENTIAL (PRIMARY) HYPERTENSION (3) Decubitus ulcer of sacral area Code(s): L89.159 - PRESSURE ULCER OF SACRAL REGION, UNSPECIFIED STAGE (4) DVT (deep venous thrombosis) Code(s): I82.409 - ACUTE EMBOLISM AND THOMBOS UNSP DEEP VN UNSP LOWER EXTREMITY Visit type - Emergency Visit Emergency Visit: Yes ED Registration Date: 09/28/18 Care time: The patient presented to the Emergency Department on the above date and was hospitalized for further evaluation of their emergent condition. - New Patient This patient is new to me today: Yes Date on this admission: 09/29/18 - Critical Care Critical Care patient: No
[2018-09-29] MEDS ORDERED: INSULIN (NOVOLOG) ASPART 100 UNITS/ML 10ML VIAL ONE (14:39)
--- NOTE | 2018-09-29 14:55 | ECHO ---
Name: JULIEN GATES Exam:Adult Echocardiogram Study Date: 09/29/2018 10:37 AM Age: 58 yrs Reason For Study: PE Height: 63 in Weight: 160 lb BSA: 1.8 m2 MMode/2D Measurements & Calculations IVSd: 0.73 cm Ao root diam: 2.4 cm LVIDd: 4.5 cm LA dimension: 3.4 cm LVIDs: 2.9 cm LVPWd: 0.64 cm EDV(Teich): 94.3 ml LVOT diam: 1.9 cm ESV(Teich): 32.0 ml Doppler Measurements & Calculations MV E max robert: 72.6 cm/sec Med Peak E' Robert: 5.5 cm/sec MV A max robert: 91.3 cm/sec Med E/e': 13.2 MV E/A: 0.79 Lat Peak E' Robert: 10.1 cm/sec Lat E/e': 7.2 Left Ventricle The left ventricular size, thickness and function are normal. LVEF =65 - 70%. Left Ventricular Fillin g pattern is normal for age. Right Ventricle The right ventricle is normal in size and function. Atria Normal left and right atrial size and function. Mitral Valve The mitral valve is normal in structure and function. Tricuspid Valve The tricuspid valve is normal. There was insufficient TR detected to calculate RV systolic pressure. Aortic Valve The aortic valve is normal in structure and function. Pulmonic Valve The pulmonic valve is not well seen, but is grossly normal. Great Vessels The aortic root is normal size. Pericardium/Pleura There is no pericardial effusion. Interpretation Summary This was essentially a normal study. MD Britt Mitchell 09/29/2018 02:55 PM
--- NOTE | 2018-09-29 15:20 | CON.ID ---
Consult Consult Specialty:: infectious diseases Reason for Consultation:: fever,multiple ulcers pain in the left leg - History of Present Illness Chief Complaint: weakness History of Present Illness: 58 y/o female with a history of opioid abuse, HTN, IDDM, anemia, ischemic colitis, DVT on elliquis, and left humeral fracture who presents with swelling of her left feet. She reports this swelling has been over the course of two days. She also recently had a mechanical fall where she slipped on a slippery sheet resulting in rug burn on her knees. She denies any head trauma. She reports she is feels weak and needs PT but she is still able to ambulate on her own. She has multiple admissions the most recent from an opioid overdose. She has poor outpaitent follow up and is not always compliant with her medications. When asked if she has missed any doses of her elliquis she states "it's possible ". She also complains of pain at her left shoulder from an old humeral fractre and calf tenderness. Patient states she has also been feeling feverish. She denies shortness of breath, chest pain, nausea, or diarrhea. - History Source History Provided By: Patient Limitations to Obtaining History: Poor Historian - Past Medical History IMMUNOLOGY SPECIALIST: Yes: Migraine Cardio/Vascular: Yes: HTN, Hyperlipdemia Gastrointestinal: Yes: Other (morbid obesity; colon polyps; ischemic colitis with sigmoid/left colon ulcers) Renal/: Yes: Other (ELLA) Infectious Disease: Yes: Other (PPD + per previous records) Psych: Yes: Anxiety, Depression Musculoskeletal: Yes: Chronic low back pain, Other (Lt shoulder pain, ?injury 5m ago) Endocrine: Yes: Diabetes Mellitus - Past Surgical History Past Surgical History: Yes: Bariatric Surgery (laparoscopic gastric bypass 2008) , Cholecystectomy (laparoscopic), Colonoscopy, Upper Endoscopy - Alcohol/Substance Use Hx Alcohol Use: No History of Substance Use: reports: None, Prescription (percocet) - Smoking History Smoking history: Never smoked Have you smoked in the past 12 months: No Aproximately how many cigarettes per day: 0 - Social History Usual Living Arrangement: With Spouse ADL: Independent History of Recent Travel: No Home Medications - Allergies Allergies/Adverse Reactions: Allergies Allergy/AdvReac Type Severity Reaction Status Date / Time No Known Allergies Allergy Verified 09/06/18 15:25 - Home Medications Home Medications: Ambulatory Orders RX: Fenofibrate Nanocrystallized [Tricor] 145 mg PO DAILY 07/14/14 RX: Insulin Lispro [Humalog] 5 unit SQ AC 07/14/14 RX: Multivitamins [Multivit ([facility] Formul[facility])] 1 tab PO DAILY 07/14/14 RX: Duloxetine HCl [Cymbalta] 30 mg PO DAILY 06/25/18 RX: Ferrous Sulfate [Feosol] 325 mg PO DAILY #30 ud 07/15/18 RX: Mesalamine [Asacol HD -] 800 mg PO TID #60 tablet.dr 07/15/18 RX: Apixaban [Eliquis] 5 mg PO BID #60 tablet 08/06/18 RX: Lisinopril 2.5 mg PO DAILY #30 tablet 08/06/18 RX: Pravastatin Sodium [Pravachol -] 80 mg PO HS 09/07/18 RX: Sitagliptin Phosphate [Januvia] 100 mg PO DAILY 09/07/18 RX: metFORMIN HCL [Metformin HCl] 850 mg PO BID 09/07/18 RX: Calcium 500Mg/Vit-D 200 Units [Os-Willy 500+D -] 2 tab PO DAILY #30 tab RX: Magnesium Oxide 500 mg PO DAILY #7 tablet 09/16/18 RX: Pantoprazole Sodium [Protonix -] 40 mg PO DAILY #30 tablet.ec 09/16/18 Fluconazole [Diflucan -] 100 mg PO DAILY #7 tablet 10/08/18 Levofloxacin [Levaquin] 750 mg PO DAILY 7 Days #7 tablet 10/08/18 RX: Apixaban [Eliquis -] 5 mg PO BID 30 Days #60 tablet 10/08/18 RX: Collagenase Clostridium Hist. [Santyl -] 1 applic TP DAILY 30 Days #2 tube 10/08/18 Family Disease History - Family Disease History Family Disease History: Other: Father (: 52: [place]. ? h/o crohn's ), Mother ( Alive: healthy), Brother (1, healthy), Sister (2, healthy) Review of Systems - Review of Systems Constitutional: reports: Weakness Eyes: reports: No Symptoms HENT: reports: No Symptoms Cardiovascular: reports: No Symptoms Respiratory: reports: No Symptoms Gastrointestinal: reports: No Symptoms Musculoskeletal: reports: Muscle Weakness Integumentary: reports: No Symptoms Neurological: reports: No Symptoms Endocrine: reports: No Symptoms Hematology/Lymphatic: reports: No Symptoms Psychiatric: reports: No Symptoms Physical Exam Vital Signs: Vital Signs Temperature 99.7 F H 09/29/18 10:25 Pulse Rate 90 09/29/18 10:25 Respiratory Rate 15 09/29/18 10:25 Blood Pressure 134/71 09/29/18 10:25 O2 Sat by Pulse Oximetry (%) 99 09/28/18 16:30 Constitutional: Yes: Calm, Mild Distress Eyes: Yes: Conjunctiva Clear HENT: Yes: Atraumatic, Normocephalic Neck: Yes: Supple, Trachea Midline Cardiovascular: Yes: Regular Rate and Rhythm Respiratory: Yes: Regular, Poor Air Entry (bases) Gastrointestinal: Yes: Normal Bowel Sounds, Soft Musculoskeletal: Yes: WNL Extremities: Yes: Other Edema: LLE: 1+ Neurological: Yes: Alert, Oriented Psychiatric: Yes: Alert Labs: CBC, BMP 09/29/18 09:30 09/29/18 09:30 Imaging - Results Chest X-ray: Report Reviewed, Image Reviewed Cat Scan: Report Reviewed, Image Reviewed Assessment/Plan Problem List - Problems (1) Pulmonary embolism Code(s): I26.99 - OTHER PULMONARY EMBOLISM WITHOUT ACUTE COR PULMONALE (2) HTN (hypertension) Code(s): I10 - ESSENTIAL (PRIMARY) HYPERTENSION (3) Decubitus ulcer of sacral area Code(s): L89.159 - PRESSURE ULCER OF SACRAL REGION, UNSPECIFIED STAGE (4) DVT (deep venous thrombosis) Code(s): I82.409 - ACUTE EMBOLISM AND THOMBOS UNSP DEEP VN UNSP LOWER EXTREMITY 5 sacral ulcers 6 fevers plan plan will start on abx await for duplex study monitor fevers await for cx reports rest as per the team
--- NOTE | 2018-09-29 16:16 | EKG ---
Test Reason : Blood Pressure : / mmHG Vent. Rate : 119 BPM Atrial Rate : 119 BPM P-R Int : 118 ms QRS Dur : 066 ms QT Int : 312 ms P-R-T Axes : 064 063 055 degrees QTc Int : 438 ms POOR DATA QUALITY, INTERPRETATION MAY BE ADVERSELY AFFECTED SINUS TACHYCARDIA LOW VOLTAGE QRS SEPTAL INFARCT (CITED ON OR BEFORE 01-AUG-2018) ABNORMAL ECG WHEN COMPARED WITH ECG OF 08-SEP-2018 12:08, SERIAL CHANGES OF SEPTAL INFARCT PRESENT Confirmed by MD ALFONZO, CAPRI ([id number]) on 09/29/2018 4:16:40 PM Referred By: Confirmed By:CAPRI MEJÍA MD
--- NOTE | 2018-09-29 16:57 | PN ---
Teaching Attending Note Name of Resident: Bettie Marroquin ATTENDING PHYSICIAN STATEMENT I saw and evaluated the patient. I reviewed the resident's note and discussed the case with the resident. I agree with the resident's findings and plan as documented. SUBJECTIVE:states she feels much better since her arrival. pain has subsided. denies Cp, SOB, fever, chills, cough, Hemoptysis, N/V/C/D OBJECTIVE: Last Vital Signs Temp Pulse Resp BP Pulse Ox 98.7 F 107 H 15 149/71 99 09/29/18 14:25 09/29/18 14:25 09/29/18 10:25 09/29/18 14:25 09/29/18 09:00 General NAD CV S1 S2 RRR no murmur/rub/gallop lungs CTA B/L no wheezing/rales/rhonchi abdomen soft NT/ND Extremities no pedal edema no calf tenderness skin unable to assess her sacral wound as pt is in the hallway in the ER without privacy. ASSESSMENT AND PLAN: 58 yo F with PMHx of Gastric bypass (?2004), recurrent anemia, prior EGD/ colonoscopy in 05/2018 showing gastric ulcers at anastomotic site/Possible ischemic colitis, recent RLE DVT on eliquis, IDDM, HTN, chronic diarrhea, opioid dependence, with recent hospitalization for opiate overdose complicated by sigmoid microperforation came to the ER wtih leg swelling and pain and found to have RLL PE and LLE DVT. 1. RLL PE and LLE DVT- hemodynamically stable. 99% on RA. unclear if pt is failed outpatient therapy or failed therapy. swears to me she has been compliant with her medications however have told other staff members its possible she is missing medications. also when asked about her eliquis she told me she took it for a week like she was told and it gave her diarrhea (I believe she was referring to her abx she was discharged on augmentin). her INR is slightly elevated which may indicate compliance however this is lower than on discharge when she was on eliquis. also, I dont think patient would be able to manage with coumadin and frequent office visits and diet compliance. Vascular surgery consulted to comment if patient would be a candidate for IVC filter. will increase eliquis to 10mg BID for 1 week for PE treatment and try to reach out to social security benefits interviewer to see if patient has been compliant with medications 2. Fever-Tm 101.9. believe this it to be from DVT/PE and not from infectious source. no leukocytosis. CT abdomen and pelvis showing improvement in microperforation from last visit. sacral decub is reported to not appear infected at this time. was started on zosyn. will d/c at this time. f/u Cx. ID consulted 3. anemia- Hgb is stable. cont iron supplements. no signs of bleeding. no indication for transfusion 4. DM- hold oral agents. cont ISS and BGM 5. HTN- controlled. cont home medication 6. PT eval as patient appears very weak.
[2018-09-29] MEDS: ATORVASTATIN CA 20 MG TABLET (FP) PO SCH (21:16)
[2018-09-30] MEDS: LACTATED RINGERS SOLUTION 1,000 ML IV SCH ×3 (05:41→18:28)
[2018-09-30] MEDS ORDERED: FLU VACCINE QUAD 60 MCG/0.5 ML (MDV 18-19) IM ONE (05:48)
[2018-09-30] MEDS: INSULIN SLIDING SCALE (NOVOLOG) 1 VIAL SQ SCH ×4 (06:07→21:16)
[2018-09-30 07:51] LABS: BASO % 0.9 % (0-2.0); EOS % 6.9 % (0-4.5); HEMATOCRIT 28.8 % (32.4-45.2); LYMPH % 18.7 % (8-40); MCH 25.3 pg (25.7-33.7); MCHC 31.4 g/dl (32.0-36.0); MEAN CELL VOLUME 80.6 fl (80-96); MEAN PLT VOLUME 7.5 fl (7.5-11.1); MONO % 10.8 % (3.8-10.2); NEUT % 62.7 % (42.8-82.8); PLATELET COUNT 279 K/MM3 (134-434); RBC 3.57 M/mm3 (3.60-5.2); RDW 17.8 % (11.6-15.6); WHITE BLOOD COUNT 5.3 K/mm3 (4.0-10.0)
--- NOTE | 2018-09-30 08:08 | PN ---
Physical Exam: SUBJECTIVE: Patient seen and examined at bedside. No acute events overnight- patient is no more having fevers. She states that she is feeling better- the pain in her left leg behind her knee is still there, however, it is decreasing. She is aware of the blood clot in her lungs, and was explained that the vascular surgeon would be in to discuss future treatment (whether it be medicine v. IVC filter) she denies any CP/SOB/N/V fevers or chills. OBJECTIVE: Vital Signs Period Temp Pulse Resp BP Sys/Funes Pulse Ox Last 24 Hr 98.7 F-100.6 F 90-112 15-18 124-149/58-71 97-99 GENERAL: The patient is awake, alert, and fully oriented, in no acute distress. EYES: no scleral icterus NECK: no JVD, no lymphadenopathy appreciated LUNGS: CTA B/L; no rales, rhonchi ror wheezing. HEART: Regular rate and rhythm, S1, S2 without murmur, rub or gallop. ABDOMEN: Soft, nontender, nondistended, normoactive bowel sounds, no guarding, no rebound, no hepatosplenomegaly, no masses. EXTREMITIES: 2+ pulses, warm, well-perfused, no edema. slight tenderness upon palpation of left leg, mainly behind knee- however, leg is not warm or erythematous. PSYCH: Normal mood, normal affect. SKIN: Warm, dry, normal turgor, no rashes or lesions noted Laboratory Results - last 24 hr 09/29/18 09/29/18 09/29/18 09:30 09:30 11:15 WBC 6.7 RBC 3.96 Hgb 10.2 L Hct 31.9 L MCV 80.6 MCH 25.9 MCHC 32.1 RDW 17.7 H Plt Count 331 MPV 7.4 L Absolute Neuts (auto) Neutrophils % Lymphocytes % Monocytes % Eosinophils % Basophils % Nucleated RBC % Sodium 142 Potassium 3.7 Chloride 106 Carbon Dioxide 27 Anion Gap 8 BUN 6 L Creatinine 0.6 Creat Clearance w eGFR > 60 POC Glucometer [phone] Random Glucose 207 H Calcium 8.3 L 09/29/18 09/29/18 09/30/18 17:32 21:17 05:42 WBC RBC Hgb Hct MCV MCH MCHC RDW Plt Count MPV Absolute Neuts (auto) Neutrophils % Lymphocytes % Monocytes % Eosinophils % Basophils % Nucleated RBC % Sodium Potassium Chloride Carbon Dioxide Anion Gap BUN Creatinine Creat Clearance w eGFR POC Glucometer [phone] 126 Random Glucose Calcium 09/30/18 07:10 WBC 5.3 RBC 3.57 L Hgb 9.0 L Hct 28.8 L MCV 80.6 MCH 25.3 L MCHC 31.4 L RDW 17.8 H Plt Count 279 MPV 7.5 Absolute Neuts (auto) 3.3 Neutrophils % 62.7 Lymphocytes % 18.7 Monocytes % 10.8 H Eosinophils % 6.9 H Basophils % 0.9 Nucleated RBC % 0 Sodium Potassium Chloride Carbon Dioxide Anion Gap BUN Creatinine Creat Clearance w eGFR POC Glucometer Random Glucose Calcium Active Medications Generic Name Dose Route Start Last Admin Trade Name Freq PRN Reason Stop Dose Admin Acetaminophen 650 mg 09/29/18 01:02 Tylenol - PO Q4H PRN PAIN LEVEL 6-10 Apixaban 10 mg 09/29/18 22:00 09/29/18 21:16 Eliquis - PO 10 mg BID YAMILKA Administration Atorvastatin Calcium 20 mg 09/29/18 22:00 09/29/18 21:16 Lipitor - PO 20 mg HS YAMILKA Administration Calcium Carbonate/Cholecalciferol 2 tab 09/29/18 10:00 09/29/18 10:07 Os-Willy 500+D - PO 2 tab DAILY YAMILKA Administration Duloxetine HCl 30 mg 09/29/18 10:00 09/29/18 10:06 Cymbalta - PO 30 mg DAILY YAMILKA Administration Fenofibric Acid 135 mg 09/29/18 10:00 09/29/18 10:08 Trilipix - PO 135 mg DAILY YAMILKA Administration Ferrous Sulfate 325 mg 09/29/18 10:00 09/29/18 10:07 Feosol - PO 325 mg DAILY YAMILKA Administration Lactated Ringer's 1,000 mls @ 100 mls/hr 09/29/18 01:15 09/30/18 06:08 Lactated Ringers Solution IV 100 mls/hr ASDIR YAMILKA Administration Piperacillin Sod/Tazobactam 50 mls @ 100 mls/hr 09/29/18 10:00 Sod 3.375 gm/ Dextrose IVPB Q8H-IV YAMILKA Protocol Influenza Virus Vaccine Quadrival 60 mcg 09/30/18 05:48 Flulaval Quad [id number] IM 09/30/18 05:49 .ONCE ONE Insulin Aspart 1 vial 09/29/18 07:00 09/30/18 06:07 Novolog Vial Sliding Scale - SQ Not Given ACHS [facility] Protocol Magnesium Oxide 400 mg 09/29/18 10:00 09/29/18 10:07 Mag-Ox - PO 400 mg DAILY YAMILKA Administration Mesalamine 800 mg 09/29/18 08:00 09/29/18 17:25 Asacol Hd - PO 800 mg TIDCM YAMILKA Administration Multivitamins/Minerals/Vitamin C 1 tab 09/29/18 10:00 09/29/18 10:08 Tab-A-Vit - PO 1 tab DAILY YAMILKA Administration Pantoprazole Sodium 40 mg 09/29/18 10:00 09/29/18 10:08 Protonix - PO 40 mg DAILY YAMILKA Administration ASSESSMENT/PLAN: 8 y/o with PMH of DVTs, sigmoid microperforation, DM, anemia, HTN, presents with left lower extremity pain and swelling, sacral ulcers,c upon arrival now found to have right and left lower lobe segmental PEs and DVTs. #) Pulmonary Embolism unclear how compliant the patient is with her eliquis -started patient on eliquis 10 BID for treatment of PE -Dr. Mary consulted- regarding options of long-term AC (medical v. IVC filter) -they reccommended medical management for 6 months, no IVC filter at this time -will attempt to get social work to see if patient was compliant with her meds and find out her social support system #) DM -holding home anti-diabetics -ISS -BGMS ACHS #) Sacral Ulcers -seen by surgery; appreciate their recs -they recommended santyl and foam dressing -q2h turning; OOB -no need for antibiotics as the ulcers do not look infected -ID consulted- input appreiated #)HTN -resume home medications #)HLD -resume lipitor 20 daily F/E/N LR @100mls/hr replete electrolytes when necessary diabetic diet Problem List - Problems (1) Pulmonary embolism Code(s): I26.99 - OTHER PULMONARY EMBOLISM WITHOUT ACUTE COR PULMONALE (2) HTN (hypertension) Code(s): I10 - ESSENTIAL (PRIMARY) HYPERTENSION (3) Decubitus ulcer of sacral area Code(s): L89.159 - PRESSURE ULCER OF SACRAL REGION, UNSPECIFIED STAGE (4) DVT (deep venous thrombosis) Code(s): I82.409 - ACUTE EMBOLISM AND THOMBOS UNSP DEEP VN UNSP LOWER EXTREMITY Visit type - Emergency Visit Emergency Visit: Yes ED Registration Date: 09/28/18 Care time: The patient presented to the Emergency Department on the above date and was hospitalized for further evaluation of their emergent condition. - New Patient This patient is new to me today: No - Critical Care Critical Care patient: No
[2018-09-30 08:18] LABS: ALBUMIN 1.8 g/dl (3.4-5.0); ALK PHOS 70 U/L (45-117); ANION GAP 9 MMOL/L (8-16); BILIRUBIN,TOTAL 0.4 mg/dL (0.2-1); BLOOD UREA NITROGEN 5 mg/dL (7-18); CALCIUM 8.1 mg/dL (8.5-10.1); CHLORIDE 108 mmol/L (98-107); CO2 24 mmol/L (21-32); CREATININE 0.5 mg/dL (0.55-1.3); GLUCOSE,RANDOM 131 mg/dL (74-106); POTASSIUM 3.6 mmol/L (3.5-5.1); SGOT/AST 14 U/L (15-37); SGPT/ALT 11 U/L (13-61); SODIUM 141 mmol/L (136-145); TOT PROT 4.4 g/dl (6.4-8.2)
[2018-09-30] MEDS ORDERED: PT OWN MED DRAWER 7, Y5N ONE ×3 (09:26→18:06)
[2018-09-30] MEDS: MESALAMINE 800 MG TABLET.DR PO SCH ×3 (09:53→18:08)
[2018-09-30] MEDS: MAGNESIUM OXIDE 400 MG TABLET (FP) PO SCH (09:54)
[2018-09-30] MEDS: FERROUS SO4 325 MG TABLET (FP) PO SCH (09:54)
[2018-09-30] MEDS: MULTIVITAMINS (DAILY MVI) TABLET (FP) PO SCH (09:54)
[2018-09-30] MEDS: APIXABAN 5 MG TABLET PO SCH ×2 (09:54→21:17)
[2018-09-30] MEDS: PANTOPRAZOLE 40 MG TABLET (FP) PO SCH (09:54)
[2018-09-30] MEDS: FENOFIBRIC ACID 135 MG CAP PO SCH (09:54)
[2018-09-30] MEDS: CALCIUM 500MG/VIT-D 200 UNITS COMBO TABLET (FP) PO SCH (09:54)
[2018-09-30] MEDS: DULoxetine HCL 30 MG CAPSULE.DR (FP) PO SCH (09:58)
[2018-09-30] MEDS: ACETAMINOPHEN 325 MG TABLET (FP) PO PRN ×2 (10:01→19:39)
--- NOTE | 2018-09-30 10:47 | PN ---
Progress Note (short form) - Note Progress Note: 58yo F was consulted to the vascular service for evaluation for IVC filter. Pt was recently diagnosed with DVT and discharged from hospital with anticoagulation. Pt never followed up with medicine as outpatient or took anticoagulation. Pt returned to ED and was found to have a pulmonary embolism. Pt admits that she missed her follow up visit and stopped taking her medication. Pt has a history of heroin abuse and is difficult historian. PE: Gen: A&O x 3 Resp: lungs clear b/l Heart: RRR Ext: no edema Problem List - Problems (1) Pulmonary embolism Assessment/Plan: Plan -spoke with the pt at length about the importance of taking anticoagulation, and the possiblity of if PE becomes worse. Pt states that she understands and is going to be compliant with medication. Also spoke with the pt about the option of placing an IVC filter, which pt stated that she would rather not have. -at this point would recommend pt be placed on anticoagulation for at least 6 months, if medicine concerned that pt will be non compliant, we can discuss placing an IVC filter. -please contact Vascular team if any questions or need for IVC filter. Code(s): I26.99 - OTHER PULMONARY EMBOLISM WITHOUT ACUTE COR PULMONALE
--- NOTE | 2018-09-30 12:11 | PN ---
Progress Note, Physician History of Present Illness: patient stable no new issues comfortable wound cx send vascular note noted patient has been spiking low grade fever has a little confusion patient with embolism - Current Medication List Current Medications: Active Medications Acetaminophen (Tylenol -) 650 mg PO Q4H PRN PRN Reason: PAIN LEVEL 6-10 Last Admin: 09/30/18 10:01 Dose: 650 mg Apixaban (Eliquis -) 10 mg PO BID [facility] Last Admin: 09/30/18 09:54 Dose: 10 mg Atorvastatin Calcium (Lipitor -) 20 mg PO HS [facility] Last Admin: 09/29/18 21:16 Dose: 20 mg Calcium Carbonate/Cholecalciferol (Os-Willy 500+D -) 2 tab PO DAILY [facility] Last Admin: 09/30/18 09:54 Dose: 2 tab Duloxetine HCl (Cymbalta -) 30 mg PO DAILY [facility] Last Admin: 09/30/18 09:58 Dose: Not Given Fenofibric Acid (Trilipix -) 135 mg PO DAILY [facility] Last Admin: 09/30/18 09:54 Dose: 135 mg Ferrous Sulfate (Feosol -) 325 mg PO DAILY [facility] Last Admin: 09/30/18 09:54 Dose: 325 mg Lactated Ringer's (Lactated Ringers Solution) 1,000 mls @ 100 mls/hr IV ASDIR [facility] Last Admin: 09/30/18 06:08 Dose: 100 mls/hr Insulin Aspart (Novolog Vial Sliding Scale -) 1 vial SQ ACHS [facility]; Protocol Last Admin: 09/30/18 06:07 Dose: Not Given Magnesium Oxide (Mag-Ox -) 400 mg PO DAILY [facility] Last Admin: 09/30/18 09:54 Dose: 400 mg Mesalamine (Asacol Hd -) 800 mg PO TIDCM [facility] Last Admin: 09/30/18 09:53 Dose: 800 mg Multivitamins/Minerals/Vitamin C (Tab-A-Vit -) 1 tab PO DAILY [facility] Last Admin: 09/30/18 09:54 Dose: 1 tab Pantoprazole Sodium (Protonix -) 40 mg PO DAILY [facility] Last Admin: 09/30/18 09:54 Dose: 40 mg - Objective Vital Signs: Vital Signs Temperature 100.8 F H 09/30/18 10:00 Pulse Rate 118 H 09/30/18 10:00 Respiratory Rate 18 09/30/18 10:00 Blood Pressure 145/53 L 09/30/18 10:00 O2 Sat by Pulse Oximetry (%) 97 09/29/18 20:03 Constitutional: Yes: No Distress, Calm Cardiovascular: Yes: Regular Rate and Rhythm Respiratory: Yes: Regular, CTA Bilaterally Gastrointestinal: Yes: Normal Bowel Sounds, Soft Musculoskeletal: Yes: WNL Neurological: Yes: Alert, Other Psychiatric: Yes: Other Labs: CBC, BMP 09/30/18 07:10 09/30/18 07:10 INR, PTT INR 1.31 (0.83-1.09) H 09/28/18 19:20 Assessment/Plan patient spiking fevers still could be due to the embolism,it seems patient has refused the ivc filter fevers could be due to pe but cannot r/o infection from the sacral as she has couple of openings patient was treated last time and she did not complete the treatment as she has been non compliant Problem List - Problems (1) Pulmonary embolism Code(s): I26.99 - OTHER PULMONARY EMBOLISM WITHOUT ACUTE COR PULMONALE (2) HTN (hypertension) Code(s): I10 - ESSENTIAL (PRIMARY) HYPERTENSION (3) Decubitus ulcer of sacral area Code(s): L89.159 - PRESSURE ULCER OF SACRAL REGION, UNSPECIFIED STAGE (4) DVT (deep venous thrombosis) Code(s): I82.409 - ACUTE EMBOLISM AND THOMBOS UNSP DEEP VN UNSP LOWER EXTREMITY 5 sacral ulcers plan continue current mgmt if patient spikes fever again then will initiate abx rest continue current mgmt monitor for fevers
[2018-09-30 15:33] VITALS: BMI 28.1
--- NOTE | 2018-09-30 15:48 | PN ---
Teaching Attending Note Name of Resident: Bettie Marroquin ATTENDING PHYSICIAN STATEMENT I saw and evaluated the patient. I reviewed the resident's note and discussed the case with the resident. I agree with the resident's findings and plan as documented. SUBJECTIVE:states her leg pain has improved. slight tingling. denies Cp, SOB, fever, chills, N/V/C/D, cough, hemoptysis OBJECTIVE: Last Vital Signs Temp Pulse Resp BP Pulse Ox 100.5 F H 106 H 20 139/60 97 09/30/18 14:34 09/30/18 14:34 09/30/18 14:34 09/30/18 14:34 09/29/18 20:03 General NAD CV S1 S2 RRR no murmur/rub/gallop lungs CTA B/L no wheezing/rales/rhonchi abdomen soft NT/ND Extremities no pedal edema no calf tenderness ASSESSMENT AND PLAN: 58 yo F with PMHx of Gastric bypass (?2004), recurrent anemia, prior EGD/ colonoscopy in 05/2018 showing gastric ulcers at anastomotic site/Possible ischemic colitis, recent RLE DVT on eliquis, IDDM, HTN, chronic diarrhea, opioid dependence, with recent hospitalization for opiate overdose complicated by sigmoid microperforation came to the ER wtih leg swelling and pain and found to have RLL PE and LLE DVT. 1. RLL PE and LLE DVT- hemodynamically stable. 99% on RA. vasc surgery saw and offered IVC filter which pt is refusing (she seen bad commercials regarding them ). as per Boyfriend sitting bedside she is not compliant with her medications which pt still claims she is. will cont with elquis at this time until can be verfied. spoke about possibly be needing a different medication if she is indeed complaint and pt is refusing. states she does not want to be on coumadin as she would not be able to make frequent appointments to check her INR levels. says she wants to remain on Eliquis. explained risks of continuing medication if she is still have clot formation while on this medication. verbalized understanding. will wait for friend to bring in pill bottles from home. 2. Fever-Tm 100.6. believe this it to be from DVT/PE and not from infectious source. no leukocytosis. will cont to hold abx at this time. ID on board. 3. anemia- Hgb is stable. cont iron supplements. no signs of bleeding. no indication for transfusion 4. DM- hold oral agents. cont ISS and BGM 5. HTN- controlled. cont home medication 6. PT eval. refused to walk with PT today. informed her necessity of obtaining eval 7. spoke with boyfriend present. all questions answered. verbalized understanding and agreement.
[2018-09-30] MEDS: ATORVASTATIN CA 20 MG TABLET (FP) PO SCH (21:17)
[2018-10-01 01:15] LABS: URINE APPEARANCE SLCLOUDY; URINE BILIRUBIN NEGATIVE (<2.0 mg/dL); URINE COLOR YELLOW; URINE GLUCOSE (UA) NEGATIVE (NEGATIVE); URINE KETONE NEGATIVE (NEGATIVE); URINE LEUK ESTERASE 2+ (NEGATIVE); URINE NITRITE NEGATIVE (NEGATIVE); URINE PROTEIN NEGATIVE (NEGATIVE); URINE UROBILINOGEN NEGATIVE mg/dL (0.2-1.0)
[2018-10-01 01:20] LABS: EPI CELLS RARE /HPF (FEW); URINE MUCUS RARE; YEAST MANY
[2018-10-01] MEDS: LACTATED RINGERS SOLUTION 1,000 ML IV SCH (03:10)
[2018-10-01] MEDS: INSULIN SLIDING SCALE (NOVOLOG) 1 VIAL SQ SCH ×4 (06:10→21:17)
[2018-10-01 07:24] LABS: HEMATOCRIT 29.2 % (32.4-45.2); HEMOGLOBIN 9.1 GM/dL (10.7-15.3); MCH 25.2 pg (25.7-33.7); MCHC 31.3 g/dl (32.0-36.0); MEAN CELL VOLUME 80.7 fl (80-96); MEAN PLT VOLUME 7.6 fl (7.5-11.1); PLATELET COUNT 272 K/MM3 (134-434); RBC 3.62 M/mm3 (3.60-5.2); RDW 17.5 % (11.6-15.6); WHITE BLOOD COUNT 5.2 K/mm3 (4.0-10.0)
[2018-10-01 07:58] LABS: ANION GAP 8 MMOL/L (8-16); BLOOD UREA NITROGEN 5 mg/dL (7-18); CALCIUM 8.4 mg/dL (8.5-10.1); CHLORIDE 107 mmol/L (98-107); CO2 26 mmol/L (21-32); CREATININE 0.5 mg/dL (0.55-1.3); GLUCOSE,RANDOM 131 mg/dL (74-106); POTASSIUM 3.7 mmol/L (3.5-5.1); SODIUM 142 mmol/L (136-145)
--- NOTE | 2018-10-01 08:36 | PN ---
Physical Exam: SUBJECTIVE: Patient seen and examined at bedside. patient spiked fever of 100.9 overnight- she is still having some pain in her legs. however she denies any CP/ SOB/N/V or chills. OBJECTIVE: Vital Signs Period Temp Pulse Resp BP Sys/Funes Pulse Ox Last 24 Hr 100.5 F-102.2 F 106-118 18-20 127-147/53-63 98-98 GENERAL: The patient is awake, alert, and fully oriented, in no acute distress. EYES: no scleral icterus NECK:no JVD, no lymphadenopathy LUNGS: CTA B/L; no rales, rhonchi or wheezing HEART: Regular rate and rhythm, S1, S2 without murmur, rub or gallop. ABDOMEN: Soft, nontender, nondistended, normoactive bowel sounds, no guarding, no rebound, no hepatosplenomegaly, no masses. EXTREMITIES: 2+ pulses, warm, well-perfused, no edema. slight tenderness upon palpation PSYCH: Normal mood, normal affect. SKIN: Warm, dry, normal turgor, no rashes or lesions noted Laboratory Results - last 24 hr 09/30/18 09/30/18 09/30/18 07:10 11:40 17:47 WBC RBC Hgb Hct MCV MCH MCHC RDW Plt Count MPV Sodium Potassium Chloride Carbon Dioxide Anion Gap BUN Creatinine Creat Clearance w eGFR POC Glucometer 176 279 Random Glucose Hemoglobin A1c % 6.7 H Calcium Urine Color Urine Appearance Urine pH Ur Specific [place] Urine Protein Urine Glucose (UA) Urine Ketones Urine Blood Urine Nitrite Urine Bilirubin Urine Urobilinogen Ur Leukocyte Esterase Urine WBC (Auto) Urine RBC (Auto) Ur Epithelial Cells Urine Mucus Urine Yeast 09/30/18 10/01/18 10/01/18 20:55 00:30 05:41 WBC RBC Hgb Hct MCV MCH MCHC RDW Plt Count MPV Sodium Potassium Chloride Carbon Dioxide Anion Gap BUN Creatinine Creat Clearance w eGFR POC Glucometer 122 142 Random Glucose Hemoglobin A1c % Calcium Urine Color Yellow Urine Appearance Slcloudy Urine pH 6.0 Ur Specific [place] 1.020 Urine Protein Negative Urine Glucose (UA) Negative Urine Ketones Negative Urine Blood Negative Urine Nitrite Negative Urine Bilirubin Negative Urine Urobilinogen Negative Ur Leukocyte Esterase 2+ H Urine WBC (Auto) 15 Urine RBC (Auto) 2 Ur Epithelial Cells Rare Urine Mucus Rare Urine Yeast Many 10/01/18 10/01/18 06:48 06:48 WBC 5.2 RBC 3.62 Hgb 9.1 L Hct 29.2 L MCV 80.7 MCH 25.2 L MCHC 31.3 L RDW 17.5 H Plt Count 272 MPV 7.6 Sodium 142 Potassium 3.7 Chloride 107 Carbon Dioxide 26 Anion Gap 8 BUN 5 L Creatinine 0.5 L Creat Clearance w eGFR > 60 POC Glucometer Random Glucose 131 H Hemoglobin A1c % Calcium 8.4 L Urine Color Urine Appearance Urine pH Ur Specific [place] Urine Protein Urine Glucose (UA) Urine Ketones Urine Blood Urine Nitrite Urine Bilirubin Urine Urobilinogen Ur Leukocyte Esterase Urine WBC (Auto) Urine RBC (Auto) Ur Epithelial Cells Urine Mucus Urine Yeast Active Medications Generic Name Dose Route Start Last Admin Trade Name Freq PRN Reason Stop Dose Admin Acetaminophen 650 mg 09/29/18 01:02 09/30/18 19:39 Tylenol - PO 650 mg Q4H PRN Administration PAIN LEVEL 6-10 Apixaban 10 mg 09/29/18 22:00 09/30/18 21:17 Eliquis - PO 10 mg BID YAMILKA Administration Atorvastatin Calcium 20 mg 09/29/18 22:00 09/30/18 21:17 Lipitor - PO 20 mg HS YAMILKA Administration Calcium Carbonate/Cholecalciferol 2 tab 09/29/18 10:00 09/30/18 09:54 Os-Willy 500+D - PO 2 tab DAILY YAMILKA Administration Duloxetine HCl 30 mg 09/29/18 10:00 09/30/18 09:58 Cymbalta - PO Not Given DAILY YAMILKA Fenofibric Acid 135 mg 09/29/18 10:00 09/30/18 09:54 Trilipix - PO 135 mg DAILY YAMILKA Administration Ferrous Sulfate 325 mg 09/29/18 10:00 09/30/18 09:54 Feosol - PO 325 mg DAILY YAMILKA Administration Lactated Ringer's 1,000 mls @ 100 mls/hr 09/29/18 01:15 10/01/18 03:10 Lactated Ringers Solution IV Not Given ASDIR [facility] Ceftriaxone Sodium 1 gm/ 50 mls @ 100 mls/hr 10/01/18 10:00 Dextrose IVPB DAILY [facility] Protocol Insulin Aspart 1 vial 09/29/18 07:00 10/01/18 06:10 Novolog Vial Sliding Scale - SQ Not Given ACHS [facility] Protocol Magnesium Oxide 400 mg 09/29/18 10:00 09/30/18 09:54 Mag-Ox - PO 400 mg DAILY YAMILKA Administration Mesalamine 800 mg 09/29/18 08:00 09/30/18 18:08 Asacol Hd - PO 800 mg TIDCM YAMILKA Administration Multivitamins/Minerals/Vitamin C 1 tab 09/29/18 10:00 09/30/18 09:54 Tab-A-Vit - PO 1 tab DAILY YAMILKA Administration Pantoprazole Sodium 40 mg 09/29/18 10:00 09/30/18 09:54 Protonix - PO 40 mg DAILY YAMILKA Administration ASSESSMENT/PLAN: 58 y/o with PMH of DVTs, sigmoid microperforation, DM, anemia, HTN, presents with left lower extremity pain and swelling, sacral ulcers,c upon arrival now found to have right and left lower lobe segmental PEs and DVTs. #) Pulmonary Embolism -currently giving patient eliquis 10 BID -patient still refusing IVC filter -vascular consulted- recs appreciated; will reconsult if need for IVC filter -monitor hemodynamics and o2 saturation #) Sepsis? -patient continues to spike fevers, overnight latest fever was 101.9 -started on Ceftriaxone 1gram daily -U/A positive -if patient continues to spike will do full sepsis workup tomorrow (blood/urine cx, chest xray) #) DM -holding home anti-diabetics -ISS -BGMS ACHS #) Sacral Ulcers -seen by surgery; appreciate their recs -they recommended santyl and foam dressing -q2h turning; OOB -no need for antibiotics as the ulcers do not look infected -ID consulted- input appreiated #)HTN -resume home medications #)HLD -resume lipitor 20 daily F/E/N LR @100mls/hr replete electrolytes when necessary diabetic diet Problem List - Problems (1) Pulmonary embolism Code(s): I26.99 - OTHER PULMONARY EMBOLISM WITHOUT ACUTE COR PULMONALE (2) HTN (hypertension) Code(s): I10 - ESSENTIAL (PRIMARY) HYPERTENSION (3) Decubitus ulcer of sacral area Code(s): L89.159 - PRESSURE ULCER OF SACRAL REGION, UNSPECIFIED STAGE (4) DVT (deep venous thrombosis) Code(s): I82.409 - ACUTE EMBOLISM AND THOMBOS UNSP DEEP VN UNSP LOWER EXTREMITY Visit type - Emergency Visit Emergency Visit: Yes ED Registration Date: 09/28/18 Care time: The patient presented to the Emergency Department on the above date and was hospitalized for further evaluation of their emergent condition. - New Patient This patient is new to me today: No - Critical Care Critical Care patient: No
[2018-10-01] MEDS ORDERED: cefTRIAXone SODIUM 1 GM VIAL ONE (09:38)
[2018-10-01] MEDS ORDERED: DEXTROSE 5%-WATER - 50 ML IVPB ONE (09:38)
[2018-10-01] MEDS: APIXABAN 5 MG TABLET PO SCH ×2 (09:59→21:17)
[2018-10-01] MEDS: MESALAMINE 800 MG TABLET.DR PO SCH ×3 (09:59→17:19)
[2018-10-01] MEDS: DULoxetine HCL 30 MG CAPSULE.DR (FP) PO SCH (09:59)
[2018-10-01] MEDS: CALCIUM 500MG/VIT-D 200 UNITS COMBO TABLET (FP) PO SCH (10:01)
[2018-10-01] MEDS: FERROUS SO4 325 MG TABLET (FP) PO SCH (10:01)
[2018-10-01] MEDS: CEFTRIAXONE 1 GM in DEXTROSE 5%-WATER - 50 ML IVPB SCH (10:01)
[2018-10-01] MEDS: PANTOPRAZOLE 40 MG TABLET (FP) PO SCH (10:01)
[2018-10-01] MEDS: MAGNESIUM OXIDE 400 MG TABLET (FP) PO SCH (10:01)
[2018-10-01] MEDS: MULTIVITAMINS (DAILY MVI) TABLET (FP) PO SCH (10:01)
--- NOTE | 2018-10-01 10:34 | PN ---
Progress Note, Physician History of Present Illness: patient much more awake and alert spiking high grade fevers abx started patient agreeing to ivc filter - Current Medication List Current Medications: Active Medications Acetaminophen (Tylenol -) 650 mg PO Q4H PRN PRN Reason: PAIN LEVEL 6-10 Last Admin: 09/30/18 19:39 Dose: 650 mg Apixaban (Eliquis -) 10 mg PO BID [facility] Last Admin: 10/01/18 09:59 Dose: 10 mg Atorvastatin Calcium (Lipitor -) 20 mg PO HS [facility] Last Admin: 09/30/18 21:17 Dose: 20 mg Calcium Carbonate/Cholecalciferol (Os-Willy 500+D -) 2 tab PO DAILY [facility] Last Admin: 10/01/18 10:01 Dose: 2 tab Duloxetine HCl (Cymbalta -) 30 mg PO DAILY [facility] Last Admin: 10/01/18 09:59 Dose: Not Given Fenofibric Acid (Trilipix -) 135 mg PO DAILY [facility] Last Admin: 09/30/18 09:54 Dose: 135 mg Ferrous Sulfate (Feosol -) 325 mg PO DAILY [facility] Last Admin: 10/01/18 10:01 Dose: 325 mg Lactated Ringer's (Lactated Ringers Solution) 1,000 mls @ 100 mls/hr IV ASDIR [facility] Last Admin: 10/01/18 03:10 Dose: Not Given Ceftriaxone Sodium 1 gm/ (Dextrose) 50 mls @ 100 mls/hr IVPB DAILY [facility]; Protocol Last Admin: 10/01/18 10:01 Dose: 100 mls/hr Insulin Aspart (Novolog Vial Sliding Scale -) 1 vial SQ ACHS [facility]; Protocol Last Admin: 10/01/18 06:10 Dose: Not Given Magnesium Oxide (Mag-Ox -) 400 mg PO DAILY [facility] Last Admin: 10/01/18 10:01 Dose: 400 mg Mesalamine (Asacol Hd -) 800 mg PO TIDCM [facility] Last Admin: 10/01/18 09:59 Dose: 800 mg Multivitamins/Minerals/Vitamin C (Tab-A-Vit -) 1 tab PO DAILY [facility] Last Admin: 10/01/18 10:01 Dose: 1 tab Pantoprazole Sodium (Protonix -) 40 mg PO DAILY [facility] Last Admin: 10/01/18 10:01 Dose: 40 mg - Objective Vital Signs: Vital Signs Temperature 100.9 F H 10/01/18 09:26 Pulse Rate 108 H 10/01/18 09:26 Respiratory Rate 20 10/01/18 09:26 Blood Pressure 117/58 L 10/01/18 09:26 O2 Sat by Pulse Oximetry (%) 98 09/30/18 21:00 Constitutional: Yes: No Distress, Calm Cardiovascular: Yes: Regular Rate and Rhythm Respiratory: Yes: Regular, Poor Air Entry (bases) Gastrointestinal: Yes: Normal Bowel Sounds, Soft Musculoskeletal: Yes: WNL Extremities: Yes: WNL Neurological: Yes: Alert, Oriented Psychiatric: Yes: Alert, Oriented Labs: CBC, BMP 10/01/18 06:48 10/01/18 06:48 INR, PTT INR 1.31 (0.83-1.09) H 09/28/18 19:20 Assessment/Plan patient spiking fevers still could be due to the embolism,it seems patient has refused the ivc filter fevers could be due to pe but cannot r/o infection from the sacral as she has couple of openings patient was treated last time and she did not complete the treatment as she has been non compliant Problem List - Problems (1) Pulmonary embolism Code(s): I26.99 - OTHER PULMONARY EMBOLISM WITHOUT ACUTE COR PULMONALE (2) HTN (hypertension) Code(s): I10 - ESSENTIAL (PRIMARY) HYPERTENSION (3) Decubitus ulcer of sacral area Code(s): L89.159 - PRESSURE ULCER OF SACRAL REGION, UNSPECIFIED STAGE (4) DVT (deep venous thrombosis) Code(s): I82.409 - ACUTE EMBOLISM AND THOMBOS UNSP DEEP VN UNSP LOWER EXTREMITY 5 sacral ulcers 6 fevers plan change the ext jugalar line and get peripheral site ivc filter after the patient is afebrile for 24 hours await for all cx reports abx rest as per the team
[2018-10-01] MEDS ORDERED: INSULIN (NOVOLOG) ASPART 100 UNITS/ML 10ML VIAL ONE ×2 (11:39→20:56)
[2018-10-01] MEDS: FENOFIBRIC ACID 135 MG CAP PO SCH (11:42)
--- NOTE | 2018-10-01 12:49 | PN ---
Teaching Attending Note Name of Resident: Bettie Marroquin ATTENDING PHYSICIAN STATEMENT I saw and evaluated the patient. I reviewed the resident's note and discussed the case with the resident. I agree with the resident's findings and plan as documented. SUBJECTIVE:asymptomatic. states she feels much bettr. denies Cp, SOB, fever, chils, cough, N/v/C/d, dysuria or hematuria OBJECTIVE: Last Vital Signs Temp Pulse Resp BP Pulse Ox 100.9 F H 108 H 20 117/58 L 98 10/01/18 09:26 10/01/18 09:26 10/01/18 09:26 10/01/18 09:26 09/30/18 21:00 General NAD CV S1 S2 RRR no murmur/rub/gallop lungs CTA B/L no wheezing/rales/rhonchi abdomen soft NT/ND no suprapubic tenderness or distention. no CVA tenderness Extremities no pedal edema no calf tenderness ASSESSMENT AND PLAN: 58 yo F with PMHx of Gastric bypass (?2004), recurrent anemia, prior EGD/ colonoscopy in 05/2018 showing gastric ulcers at anastomotic site/Possible ischemic colitis, recent RLE DVT on eliquis, IDDM, HTN, chronic diarrhea, opioid dependence, with recent hospitalization for opiate overdose complicated by sigmoid microperforation came to the ER wtih leg swelling and pain and found to have RLL PE and LLE DVT. 1. RLL PE and LLE DVT- hemodynamically stable. 99% on RA. refused IVC filter. will cont with eliquis 10mg BID. does not want coumadin or change to her medications. verbalized understanding of risks of may not be responding. 2. UTI-Tm 102.2 UA + although not symptomatic would treat. Bcx pending. no CVA tenderness. as per vascular team the wound does not appear infected. will start ceftriaxone. f/u Cx. ID on board. 3. anemia- Hgb is stable. cont iron supplements. no signs of bleeding. no indication for transfusion 4. DM- hold oral agents. cont ISS and BGM 5. HTN- controlled. cont home medication
[2018-10-01] MEDS: ACETAMINOPHEN 325 MG TABLET (FP) PO PRN ×2 (15:04→22:28)
[2018-10-01] MEDS: ATORVASTATIN CA 20 MG TABLET (FP) PO SCH (21:17)
[2018-10-02] MEDS: INSULIN SLIDING SCALE (NOVOLOG) 1 VIAL SQ SCH ×4 (06:37→22:42)
[2018-10-02 07:48] LABS: HEMATOCRIT 31.1 % (32.4-45.2); HEMOGLOBIN 9.7 GM/dL (10.7-15.3); MCH 24.9 pg (25.7-33.7); MEAN CELL VOLUME 80.4 fl (80-96); MEAN PLT VOLUME 8.1 fl (7.5-11.1); PLATELET COUNT 275 K/MM3 (134-434); RBC 3.87 M/mm3 (3.60-5.2); RDW 17.8 % (11.6-15.6); WHITE BLOOD COUNT 6.4 K/mm3 (4.0-10.0)
[2018-10-02] MEDS: LACTATED RINGERS SOLUTION 1,000 ML IV SCH (07:53)
[2018-10-02] MEDS: PIPERACILLIN/TAZOB 3.375 GM 3.375 GM in DEXTROSE 5%-WATER - 50 ML IVPB SCH (07:54)
[2018-10-02] MEDS ORDERED: INSULIN (NOVOLOG) ASPART 100 UNITS/ML 10ML VIAL ONE (07:58)
[2018-10-02] MEDS ORDERED: PT OWN MED DRAWER 7, Y5N ONE ×10 (07:58→17:51)
[2018-10-02 08:40] LABS: ANION GAP 9 MMOL/L (8-16); BLOOD UREA NITROGEN 7 mg/dL (7-18); CALCIUM 8.3 mg/dL (8.5-10.1); CHLORIDE 107 mmol/L (98-107); CO2 25 mmol/L (21-32); CREATININE 0.5 mg/dL (0.55-1.3); GLUCOSE,RANDOM 171 mg/dL (74-106); POTASSIUM 4.1 mmol/L (3.5-5.1); SODIUM 140 mmol/L (136-145)
[2018-10-02] MEDS: MESALAMINE 800 MG TABLET.DR PO SCH ×3 (08:45→17:39)
[2018-10-02] MEDS ORDERED: cefTRIAXone SODIUM 1 GM VIAL ONE (10:26)
[2018-10-02] MEDS ORDERED: DEXTROSE 5%-WATER - 50 ML IVPB ONE (10:26)
[2018-10-02] MEDS: CEFTRIAXONE 1 GM in DEXTROSE 5%-WATER - 50 ML IVPB SCH (10:31)
[2018-10-02] MEDS: APIXABAN 5 MG TABLET PO SCH ×2 (10:31→22:42)
[2018-10-02] MEDS: FERROUS SO4 325 MG TABLET (FP) PO SCH (10:33)
[2018-10-02] MEDS: MAGNESIUM OXIDE 400 MG TABLET (FP) PO SCH (10:33)
[2018-10-02] MEDS: MULTIVITAMINS (DAILY MVI) TABLET (FP) PO SCH (10:33)
[2018-10-02] MEDS: DULoxetine HCL 30 MG CAPSULE.DR (FP) PO SCH (10:33)
[2018-10-02] MEDS: CALCIUM 500MG/VIT-D 200 UNITS COMBO TABLET (FP) PO SCH (10:33)
[2018-10-02] MEDS: PANTOPRAZOLE 40 MG TABLET (FP) PO SCH (10:33)
--- NOTE | 2018-10-02 10:49 | PN ---
Physical Exam: SUBJECTIVE: Patient seen and examined at bedside. patient states she is feeling better- her last fever was 6 pm at last night whihc was 101.5 otherwise patient was afebrile overnight- she states the pain in her legs and arm in much better. she denies any CP/SOB/N/V fevers or chills. she is now agreeable for the IVC filter and going today at 3pm. OBJECTIVE: Vital Signs Period Temp Pulse Resp BP Sys/Funes Pulse Ox Last 24 Hr 98.9 F-102.7 F 96-108 18-20 119-139/50-68 97 GENERAL: The patient is awake, alert, and fully oriented, in no acute distress. EYES: no scleral icterus NECK: no JVD, no lymphadenopathy LUNGS: CTA B/L; no rales, rhonchi or wheezing HEART: Regular rate and rhythm, S1, S2 without murmur, rub or gallop. ABDOMEN: Soft, nontender, nondistended, normoactive bowel sounds, no guarding, no rebound, no hepatosplenomegaly, no masses. EXTREMITIES: 2+ pulses, warm, well-perfused, no edema. . PSYCH: Normal mood, normal affect. SKIN: Warm, dry, normal turgor, no rashes or lesions noted Laboratory Results - last 24 hr 10/01/18 10/01/18 10/01/18 11:44 17:02 21:15 WBC RBC Hgb Hct MCV MCH MCHC RDW Plt Count MPV Sodium Potassium Chloride Carbon Dioxide Anion Gap BUN Creatinine Creat Clearance w eGFR POC Glucometer 264 196 236 Random Glucose Calcium 10/02/18 10/02/18 10/02/18 06:35 06:35 06:35 WBC 6.4 RBC 3.87 Hgb 9.7 L Hct 31.1 L MCV 80.4 MCH 24.9 L MCHC 31.0 L RDW 17.8 H Plt Count 275 MPV 8.1 Sodium 140 Potassium 4.1 Chloride 107 Carbon Dioxide 25 Anion Gap 9 BUN 7 Creatinine 0.5 L Creat Clearance w eGFR > 60 POC Glucometer 173 Random Glucose 171 H Calcium 8.3 L Active Medications Generic Name Dose Route Start Last Admin Trade Name Freq PRN Reason Stop Dose Admin Acetaminophen 650 mg 09/29/18 01:02 10/01/18 22:28 Tylenol - PO 650 mg Q4H PRN Administration PAIN LEVEL 6-10 Apixaban 10 mg 09/29/18 22:00 10/02/18 10:31 Eliquis - PO 10 mg BID YAMILKA Administration Atorvastatin Calcium 20 mg 09/29/18 22:00 10/01/18 21:17 Lipitor - PO 20 mg HS YAMILKA Administration Calcium Carbonate/Cholecalciferol 2 tab 09/29/18 10:00 10/02/18 10:33 Os-Willy 500+D - PO 2 tab DAILY YAMILKA Administration Collagenase 1 applic 10/02/18 10:00 Santyl - TP DAILY YAMILKA Protocol Duloxetine HCl 30 mg 09/29/18 10:00 10/02/18 10:33 Cymbalta - PO 30 mg DAILY YAMILKA Administration Fenofibric Acid 135 mg 09/29/18 10:00 10/01/18 11:42 Trilipix - PO 135 mg DAILY YAMILKA Administration Ferrous Sulfate 325 mg 09/29/18 10:00 10/02/18 10:33 Feosol - PO 325 mg DAILY YAMILKA Administration Lactated Ringer's 1,000 mls @ 100 mls/hr 09/29/18 01:15 10/02/18 07:53 Lactated Ringers Solution IV Not Given ASDIR YAMILKA Ceftriaxone Sodium 1 gm/ 50 mls @ 100 mls/hr 10/01/18 10:00 10/02/18 10:31 Dextrose IVPB 100 mls/hr DAILY YAMILKA Administration Protocol Influenza Virus Vaccine Quadrival 60 mcg 10/02/18 11:00 Flulaval Quad [id number] IM 10/02/18 11:01 .ONCE ONE Insulin Aspart 1 vial 09/29/18 07:00 10/02/18 06:37 Novolog Vial Sliding Scale - SQ 2 unit ACHS YAMILKA Administration Protocol Magnesium Oxide 400 mg 09/29/18 10:00 10/02/18 10:33 Mag-Ox - PO 400 mg DAILY YAMILKA Administration Mesalamine 800 mg 09/29/18 08:00 10/02/18 08:45 Asacol Hd - PO 800 mg TIDCM YAMILKA Administration Multivitamins/Minerals/Vitamin C 1 tab 09/29/18 10:00 10/02/18 10:33 Tab-A-Vit - PO 1 tab DAILY YAMILKA Administration Pantoprazole Sodium 40 mg 09/29/18 10:00 10/02/18 10:33 Protonix - PO 40 mg DAILY YAMILKA Administration ASSESSMENT/PLAN: 58 y/o with PMH of DVTs, sigmoid microperforation, DM, anemia, HTN, presents with left lower extremity pain and swelling, sacral ulcers,c upon arrival now found to have right and left lower lobe segmental PEs and DVTs. #) Pulmonary Embolism -patient going for IVC filter placement today with Dr. Mary at 3pm -currently NPO except for PO meds #) Sepsis? -patients last fever was 6pm last night at 101.5 and has been afebrile since -ceftriaxone 1gram day 2 -U/A positive #) DM -holding home anti-diabetics -ISS -BGMS ACHS #) Sacral Ulcers -seen by surgery; appreciate their recs -they recommended santyl and foam dressing -q2h turning; OOB -no need for antibiotics as the ulcers do not look infected -ID consulted- input appreiated #)HTN -resume home medications #)HLD -resume lipitor 20 daily F/E/N LR @100mls/hr replete electrolytes when necessary diabetic diet Problem List - Problems (1) Pulmonary embolism Code(s): I26.99 - OTHER PULMONARY EMBOLISM WITHOUT ACUTE COR PULMONALE (2) HTN (hypertension) Code(s): I10 - ESSENTIAL (PRIMARY) HYPERTENSION (3) Decubitus ulcer of sacral area Code(s): L89.159 - PRESSURE ULCER OF SACRAL REGION, UNSPECIFIED STAGE (4) DVT (deep venous thrombosis) Code(s): I82.409 - ACUTE EMBOLISM AND THOMBOS UNSP DEEP VN UNSP LOWER EXTREMITY Visit type - Emergency Visit Emergency Visit: Yes ED Registration Date: 09/28/18 Care time: The patient presented to the Emergency Department on the above date and was hospitalized for further evaluation of their emergent condition. - New Patient This patient is new to me today: No - Critical Care Critical Care patient: No
[2018-10-02] MEDS ORDERED: FLU VACCINE QUAD 60 MCG/0.5 ML (MDV 18-19) IM ONE (11:00)
--- NOTE | 2018-10-02 11:21 | PN ---
Teaching Attending Note Name of Resident: Bettie Marroquin ATTENDING PHYSICIAN STATEMENT I saw and evaluated the patient. I reviewed the resident's note and discussed the case with the resident. I agree with the resident's findings and plan as documented. SUBJECTIVE:asymptomatic. now agreeable to and desires to have IVC filter placed. denies Cp, SOB, fever, chills, N/V/C/D, dysuria or hematuria OBJECTIVE: Last Vital Signs Temp Pulse Resp BP Pulse Ox 98.9 F 96 H 20 126/66 97 10/02/18 06:00 10/02/18 06:00 10/02/18 06:00 10/02/18 06:00 10/01/18 21:00 General NAD ASSESSMENT AND PLAN: 58 yo F with PMHx of Gastric bypass (?2004), recurrent anemia, prior EGD/ colonoscopy in 05/2018 showing gastric ulcers at anastomotic site/Possible ischemic colitis, recent RLE DVT on eliquis, IDDM, HTN, chronic diarrhea, opioid dependence, with recent hospitalization for opiate overdose complicated by sigmoid microperforation came to the ER wtih leg swelling and pain and found to have RLL PE and LLE DVT. 1. RLL PE and LLE DVT- hemodynamically stable. now wnats IVC filter. called placed to vascular surgery to inform them of her interest in filter placement. on eliquis 10mg BID. 2. UTI-Tm 102.7. on Cefriaxone day 2. f/u Cx. ID on board. wound cx with pending organism. will need to f/u official cx 3. anemia- Hgb is stable. cont iron supplements. no signs of bleeding. no indication for transfusion 4. DM- hold oral agents. cont ISS and BGM 5. HTN- controlled. cont home medication
[2018-10-02] MEDS: FENOFIBRIC ACID 135 MG CAP PO SCH (11:41)
--- NOTE | 2018-10-02 12:33 | PN ---
Progress Note, Physician History of Present Illness: continues to look better still spiking fevers says she is better - Current Medication List Current Medications: Active Medications Acetaminophen (Tylenol -) 650 mg PO Q4H PRN PRN Reason: PAIN LEVEL 6-10 Last Admin: 10/01/18 22:28 Dose: 650 mg Apixaban (Eliquis -) 10 mg PO BID [facility] Last Admin: 10/02/18 10:31 Dose: 10 mg Atorvastatin Calcium (Lipitor -) 20 mg PO HS [facility] Last Admin: 10/01/18 21:17 Dose: 20 mg Calcium Carbonate/Cholecalciferol (Os-Willy 500+D -) 2 tab PO DAILY [facility] Last Admin: 10/02/18 10:33 Dose: 2 tab Collagenase (Santyl -) 1 applic TP DAILY [facility]; Protocol Duloxetine HCl (Cymbalta -) 30 mg PO DAILY [facility] Last Admin: 10/02/18 10:33 Dose: 30 mg Fenofibric Acid (Trilipix -) 135 mg PO DAILY [facility] Last Admin: 10/02/18 11:41 Dose: 135 mg Ferrous Sulfate (Feosol -) 325 mg PO DAILY [facility] Last Admin: 10/02/18 10:33 Dose: 325 mg Lactated Ringer's (Lactated Ringers Solution) 1,000 mls @ 100 mls/hr IV ASDIR [facility] Last Admin: 10/02/18 07:53 Dose: Not Given Ceftriaxone Sodium 1 gm/ (Dextrose) 50 mls @ 100 mls/hr IVPB DAILY [facility]; Protocol Last Admin: 10/02/18 10:31 Dose: 100 mls/hr Insulin Aspart (Novolog Vial Sliding Scale -) 1 vial SQ ACHS [facility]; Protocol Last Admin: 10/02/18 12:10 Dose: Not Given Magnesium Oxide (Mag-Ox -) 400 mg PO DAILY [facility] Last Admin: 10/02/18 10:33 Dose: 400 mg Mesalamine (Asacol Hd -) 800 mg PO TIDCM [facility] Last Admin: 10/02/18 12:10 Dose: Not Given Multivitamins/Minerals/Vitamin C (Tab-A-Vit -) 1 tab PO DAILY [facility] Last Admin: 10/02/18 10:33 Dose: 1 tab Pantoprazole Sodium (Protonix -) 40 mg PO DAILY [facility] Last Admin: 10/02/18 10:33 Dose: 40 mg - Objective Vital Signs: Vital Signs Temperature 98.9 F 10/02/18 06:00 Pulse Rate 96 H 10/02/18 06:00 Respiratory Rate 20 10/02/18 06:00 Blood Pressure 126/66 10/02/18 06:00 O2 Sat by Pulse Oximetry (%) 97 10/01/18 21:00 Constitutional: Yes: No Distress, Calm Cardiovascular: Yes: Regular Rate and Rhythm Respiratory: Yes: Regular, CTA Bilaterally Gastrointestinal: Yes: Normal Bowel Sounds, Soft Musculoskeletal: Yes: WNL Edema: LLE: 1+ Neurological: Yes: Alert, Oriented Labs: CBC, BMP 10/02/18 06:35 10/02/18 06:35 INR, PTT INR 1.31 (0.83-1.09) H 09/28/18 19:20 Assessment/Plan Problem List - Problems (1) Pulmonary embolism Code(s): I26.99 - OTHER PULMONARY EMBOLISM WITHOUT ACUTE COR PULMONALE (2) HTN (hypertension) Code(s): I10 - ESSENTIAL (PRIMARY) HYPERTENSION (3) Decubitus ulcer of sacral area Code(s): L89.159 - PRESSURE ULCER OF SACRAL REGION, UNSPECIFIED STAGE (4) DVT (deep venous thrombosis) Code(s): I82.409 - ACUTE EMBOLISM AND THOMBOS UNSP DEEP VN UNSP LOWER EXTREMITY 5 sacral ulcers [address] abx for ivc filter once started on antifungal rest continue current mgmt patient improving
[2018-10-02] MEDS: FLUCONAZOLE 100 MG TABLET (UD) PO SCH (15:26)
--- NOTE | 2018-10-02 16:27 | PN ---
Progress Note (short form) - Note Progress Note: Vascular surgery Pt seen and examined. Cannot place IVC filter today due to pt being culture positive for yeast. ID did not clear pt for IVC filter. Once cleared will place filter. Probably friday Fredis holguin DO
[2018-10-02] MEDS: COLLAGENASE CLOSTRIDIUM HIST. 30 GRAMS TUBE TP SCH (17:58)
[2018-10-02] MEDS: ATORVASTATIN CA 20 MG TABLET (FP) PO SCH (22:43)
[2018-10-02] MEDS: ACETAMINOPHEN 325 MG TABLET (FP) PO PRN (23:56)
[2018-10-03] MEDS: INSULIN SLIDING SCALE (NOVOLOG) 1 VIAL SQ SCH ×4 (07:09→21:43)
[2018-10-03] MEDS: LACTATED RINGERS SOLUTION 1,000 ML IV SCH (07:10)
[2018-10-03 07:13] LABS: HEMATOCRIT 31.2 % (32.4-45.2); HEMOGLOBIN 9.8 GM/dL (10.7-15.3); MCH 25.4 pg (25.7-33.7); MCHC 31.5 g/dl (32.0-36.0); MEAN CELL VOLUME 80.5 fl (80-96); PLATELET COUNT 296 K/MM3 (134-434); RBC 3.87 M/mm3 (3.60-5.2); RDW 17.7 % (11.6-15.6)
[2018-10-03 07:54] LABS: ANION GAP 8 MMOL/L (8-16); BLOOD UREA NITROGEN 9 mg/dL (7-18); CALCIUM 8.1 mg/dL (8.5-10.1); CHLORIDE 106 mmol/L (98-107); CO2 25 mmol/L (21-32); CREATININE 0.5 mg/dL (0.55-1.3); GLUCOSE,RANDOM 178 mg/dL (74-106); POTASSIUM 3.9 mmol/L (3.5-5.1); SODIUM 139 mmol/L (136-145)
[2018-10-03] MEDS: MESALAMINE 800 MG TABLET.DR PO SCH ×3 (08:00→16:46)
[2018-10-03] MEDS ORDERED: DEXTROSE 5%-WATER - 50 ML IVPB ONE ×3 (09:28→18:20)
[2018-10-03] MEDS ORDERED: PT OWN MED DRAWER 7, Y5N ONE ×3 (09:28→20:38)
[2018-10-03] MEDS ORDERED: cefTRIAXone SODIUM 1 GM VIAL ONE (09:28)
[2018-10-03] MEDS: CEFTRIAXONE 1 GM in DEXTROSE 5%-WATER - 50 ML IVPB SCH (09:46)
[2018-10-03] MEDS: PANTOPRAZOLE 40 MG TABLET (FP) PO SCH (09:47)
[2018-10-03] MEDS: MAGNESIUM OXIDE 400 MG TABLET (FP) PO SCH (09:47)
[2018-10-03] MEDS: FERROUS SO4 325 MG TABLET (FP) PO SCH (09:47)
[2018-10-03] MEDS: CALCIUM 500MG/VIT-D 200 UNITS COMBO TABLET (FP) PO SCH (09:47)
[2018-10-03] MEDS: FLUCONAZOLE 100 MG TABLET (UD) PO SCH (09:48)
[2018-10-03] MEDS: DULoxetine HCL 30 MG CAPSULE.DR (FP) PO SCH (09:48)
[2018-10-03] MEDS: COLLAGENASE CLOSTRIDIUM HIST. 30 GRAMS TUBE TP SCH (09:48)
[2018-10-03] MEDS: APIXABAN 5 MG TABLET PO SCH ×2 (09:49→21:43)
[2018-10-03] MEDS: FENOFIBRIC ACID 135 MG CAP PO SCH (09:49)
[2018-10-03] MEDS: MULTIVITAMINS (DAILY MVI) TABLET (FP) PO SCH (09:49)
--- NOTE | 2018-10-03 10:09 | PN ---
Progress Note (short form) - Note Progress Note: asymptomatic. states she feels much better today. shira Cp, SOB, fever, chills, N/V/C/D, no vaginal discharge or itching Current Medications Generic Name Dose Route Start Last Admin Trade Name Freq PRN Reason Stop Dose Admin Acetaminophen 650 mg 09/29/18 01:02 10/02/18 23:56 Tylenol - PO 650 mg Q4H PRN Administration PAIN LEVEL 6-10 Apixaban 10 mg 09/29/18 22:00 10/03/18 09:49 Eliquis - PO 10 mg BID [facility] Administration Atorvastatin Calcium 20 mg 09/29/18 22:00 10/02/18 22:43 Lipitor - PO 20 mg HS [facility]KA Administration Calcium Carbonate/Cholecalciferol 2 tab 09/29/18 10:00 10/03/18 09:47 Os-Willy 500+D - PO 2 tab DAILY [facility] Administration Collagenase 1 applic 10/02/18 10:00 10/03/18 09:48 Santyl - TP 1 applic DAILY [facility] Administration Protocol Duloxetine HCl 30 mg 09/29/18 10:00 10/03/18 09:48 Cymbalta - PO 30 mg DAILY [facility] Administration Fenofibric Acid 135 mg 09/29/18 10:00 10/03/18 09:49 Trilipix - PO 135 mg DAILY [facility] Administration Ferrous Sulfate 325 mg 09/29/18 10:00 10/03/18 09:47 Feosol - PO 325 mg DAILY [facility] Administration Fluconazole 100 mg 10/02/18 12:45 10/03/18 09:48 Diflucan - PO 100 mg DAILY [facility] Administration Lactated Ringer's 1,000 mls @ 100 mls/hr 09/29/18 01:15 10/03/18 07:10 Lactated Ringers Solution IV Not Given ASDIR [facility] Ceftriaxone Sodium 1 gm/ 50 mls @ 100 mls/hr 10/01/18 10:00 10/03/18 09:46 Dextrose IVPB 100 mls/hr DAILY [facility] Administration Protocol Insulin Aspart 1 vial 09/29/18 07:00 10/03/18 07:09 Novolog Vial Sliding Scale - SQ 2 unit ACHS [facility] Administration Protocol Magnesium Oxide 400 mg 09/29/18 10:00 10/03/18 09:47 Mag-Ox - PO 400 mg DAILY [facility] Administration Mesalamine 800 mg 09/29/18 08:00 10/03/18 08:00 Asacol Hd - PO 800 mg TIDCM [facility] Administration Multivitamins/Minerals/Vitamin C 1 tab 09/29/18 10:00 10/03/18 09:49 Tab-A-Vit - PO 1 tab DAILY [facility] Administration Pantoprazole Sodium 40 mg 09/29/18 10:00 10/03/18 09:47 Protonix - PO 40 mg DAILY [facility] Administration Last Vital Signs Temp Pulse Resp BP Pulse Ox 99.2 F 95 H 20 119/61 95 10/03/18 06:00 10/03/18 06:00 10/03/18 06:00 10/03/18 06:00 10/02/18 11:00 General NAD CV S1 S2 RRR Lungs CTA B/L no wheezing/rales/rhonchi Abdomen soft NT/ND Extremities no calf tenderness or swelling CBCD WBC 6.0 K/mm3 (4.0-10.0) 10/03/18 06:30 RBC 3.87 M/mm3 (3.60-5.2) 10/03/18 06:30 Hgb 9.8 GM/dL (10.7-15.3) L 10/03/18 06:30 Hct 31.2 % (32.4-45.2) L 10/03/18 06:30 MCV 80.5 fl (80-96) 10/03/18 06:30 MCHC 31.5 g/dl (32.0-36.0) L 10/03/18 06:30 RDW 17.7 % (11.6-15.6) H 10/03/18 06:30 Plt Count 296 K/MM3 (134-434) 10/03/18 06:30 MPV 8.0 fl (7.5-11.1) 10/03/18 06:30 CMP Sodium 139 mmol/L (136-145) 10/03/18 06:30 Potassium 3.9 mmol/L (3.5-5.1) 10/03/18 06:30 Chloride 106 mmol/L (98-107) 10/03/18 06:30 Carbon Dioxide 25 mmol/L (21-32) 10/03/18 06:30 Anion Gap 8 MMOL/L (8-16) 10/03/18 06:30 BUN 9 mg/dL (7-18) 10/03/18 06:30 Creatinine 0.5 mg/dL (0.55-1.3) L 10/03/18 06:30 Creat Clearance w eGFR > 60 (>60) 10/03/18 06:30 Calcium 8.1 mg/dL (8.5-10.1) L 10/03/18 06:30 Total Bilirubin 0.4 mg/dL (0.2-1) 09/30/18 07:10 AST 14 U/L (15-37) L 09/30/18 07:10 ALT 11 U/L (13-61) L 09/30/18 07:10 Alkaline Phosphatase 70 U/L (45-117) 09/30/18 07:10 Total Protein 4.4 g/dl (6.4-8.2) L 09/30/18 07:10 Albumin 1.8 g/dl (3.4-5.0) L 09/30/18 07:10 ASSESSMENT AND PLAN: 58 yo F with PMHx of Gastric bypass (?2004), recurrent anemia, prior EGD/ colonoscopy in 05/2018 showing gastric ulcers at anastomotic site/Possible ischemic colitis, recent RLE DVT on eliquis, IDDM, HTN, chronic diarrhea, opioid dependence, with recent hospitalization for opiate overdose complicated by sigmoid microperforation came to the ER wtih leg swelling and pain and found to have RLL PE and LLE DVT. 1. RLL PE and LLE DVT- hemodynamically stable. agreeable for filter however plan is for friday and afebrile 24H. on Eliquis day 03/07 of elevated dose and then will reduce to 5mg BID. will need to pursue hypercoagbility workup with heme as outpatient 2. UTI-+yeast. Afebrile 24H. on Ceftriaxone day 3, will cont for now and consider d/c tomorrow if remains afebrile. started on diflucan day 2. ID on board. 3. Sacral decub- evaluated by vas surgery. f/u wound care instructions per them. WCx with pending organism. ceftriaxone started for UTI which is only showing yeast however will leave on for now until final report. will consider d/ c once reported final cx report. 4. anemia- Hgb is stable. cont iron supplements. no signs of bleeding. no indication for transfusion 5. DM- hold oral agents. cont ISS and BGM 6. HTN- controlled. cont home medication Visit type - Emergency Visit Emergency Visit: Yes ED Registration Date: 09/28/18 Care time: The patient presented to the Emergency Department on the above date and was hospitalized for further evaluation of their emergent condition. - New Patient This patient is new to me today: No - Critical Care Critical Care patient: No - Discharge Referral Referred to [facility] No
--- NOTE | 2018-10-03 12:50 | PN ---
Progress Note, Physician History of Present Illness: patient feeling better today plan for ivc filter temp still in higher 90s clinically looks better - Current Medication List Current Medications: Active Medications Acetaminophen (Tylenol -) 650 mg PO Q4H PRN PRN Reason: PAIN LEVEL 6-10 Last Admin: 10/02/18 23:56 Dose: 650 mg Apixaban (Eliquis -) 10 mg PO BID [facility] Last Admin: 10/03/18 09:49 Dose: 10 mg Calcium Carbonate/Cholecalciferol (Os-Willy 500+D -) 2 tab PO DAILY [facility] Last Admin: 10/03/18 09:47 Dose: 2 tab Collagenase (Santyl -) 1 applic TP DAILY [facility]; Protocol Last Admin: 10/03/18 09:48 Dose: 1 applic Duloxetine HCl (Cymbalta -) 30 mg PO DAILY [facility] Last Admin: 10/03/18 09:48 Dose: 30 mg Fenofibric Acid (Trilipix -) 135 mg PO DAILY [facility] Last Admin: 10/03/18 09:49 Dose: 135 mg Ferrous Sulfate (Feosol -) 325 mg PO DAILY [facility] Last Admin: 10/03/18 09:47 Dose: 325 mg Fluconazole (Diflucan -) 100 mg PO DAILY [facility] Last Admin: 10/03/18 09:48 Dose: 100 mg Daptomycin 300 mg/ Sodium (Chloride) 50 mls @ 50 mls/hr IVPB DAILY [facility]; Protocol Piperacillin Sod/Tazobactam (Sod 3.375 gm/ Dextrose) 50 mls @ 100 mls/hr IVPB Q8H-IV [facility]; Protocol Insulin Aspart (Novolog Vial Sliding Scale -) 1 vial SQ ACHS [facility]; Protocol Last Admin: 10/03/18 12:31 Dose: 2 unit Magnesium Oxide (Mag-Ox -) 400 mg PO DAILY [facility] Last Admin: 10/03/18 09:47 Dose: 400 mg Mesalamine (Asacol Hd -) 800 mg PO TIDCM [facility] Last Admin: 10/03/18 12:32 Dose: 800 mg Multivitamins/Minerals/Vitamin C (Tab-A-Vit -) 1 tab PO DAILY [facility] Last Admin: 10/03/18 09:49 Dose: 1 tab Pantoprazole Sodium (Protonix -) 40 mg PO DAILY [facility] Last Admin: 10/03/18 09:47 Dose: 40 mg - Objective Vital Signs: Vital Signs Temperature 99.0 F 10/03/18 10:00 Pulse Rate 95 H 10/03/18 10:00 Respiratory Rate 20 10/03/18 10:00 Blood Pressure 130/56 L 10/03/18 10:00 O2 Sat by Pulse Oximetry (%) 95 10/02/18 11:00 Constitutional: Yes: No Distress, Calm Cardiovascular: Yes: Regular Rate and Rhythm Respiratory: Yes: Regular, CTA Bilaterally Gastrointestinal: Yes: Normal Bowel Sounds, Soft Musculoskeletal: Yes: WNL Extremities: Yes: WNL Wound/Incision: Yes: Other (multiple sacral wounds) Neurological: Yes: Alert, Oriented Psychiatric: Yes: Alert, Oriented Labs: CBC, BMP 10/03/18 06:30 10/03/18 06:30 INR, PTT INR 1.31 (0.83-1.09) H 09/28/18 19:20 Assessment/Plan patient spiking fevers still could be due to the embolism,it seems patient has refused the ivc filter fevers could be due to pe but cannot r/o infection from the sacral as she has couple of openings patient was treated last time and she did not complete the treatment as she has been non compliant Problem List - Problems (1) Pulmonary embolism Code(s): I26.99 - OTHER PULMONARY EMBOLISM WITHOUT ACUTE COR PULMONALE (2) HTN (hypertension) Code(s): I10 - ESSENTIAL (PRIMARY) HYPERTENSION (3) Decubitus ulcer of sacral area Code(s): L89.159 - PRESSURE ULCER OF SACRAL REGION, UNSPECIFIED STAGE (4) DVT (deep venous thrombosis) Code(s): I82.409 - ACUTE EMBOLISM AND THOMBOS UNSP DEEP VN UNSP LOWER EXTREMITY 5 sacral ulcers 6 fevers all the cx results noted will start patient on 1 dapto 2 zosyn 3 continue diflucan rest as per the team
[2018-10-03] MEDS ORDERED: PIPERACILLIN/TAZOBACTAM 3.375 GM VIAL IVPB ONE ×2 (15:15→18:20)
[2018-10-03] MEDS: PIPERACILLIN/TAZOB 3.375 GM 3.375 GM in DEXTROSE 5%-WATER - 50 ML IVPB SCH ×2 (15:25→18:30)
[2018-10-03] MEDS: ACETAMINOPHEN 325 MG TABLET (FP) PO PRN ×2 (15:28→23:10)
[2018-10-03] MEDS: DAPTOMYCIN 300 MG in SODIUM CHLORIDE 50 ML IVPB SCH (16:44)
[2018-10-04] MEDS ORDERED: PIPERACILLIN/TAZOBACTAM 3.375 GM VIAL IVPB ONE ×3 (00:22→17:06)
[2018-10-04] MEDS ORDERED: DEXTROSE 5%-WATER - 50 ML IVPB ONE ×3 (00:23→17:07)
[2018-10-04] MEDS: PIPERACILLIN/TAZOB 3.375 GM 3.375 GM in DEXTROSE 5%-WATER - 50 ML IVPB SCH ×3 (01:13→17:22)
[2018-10-04] MEDS: INSULIN SLIDING SCALE (NOVOLOG) 1 VIAL SQ SCH ×4 (06:04→21:44)
[2018-10-04] MEDS: ACETAMINOPHEN 325 MG TABLET (FP) PO PRN (06:28)
[2018-10-04] MEDS ORDERED: PT OWN MED DRAWER 7, Y5N ONE (09:07)
[2018-10-04] MEDS: FERROUS SO4 325 MG TABLET (FP) PO SCH (09:13)
[2018-10-04] MEDS: MAGNESIUM OXIDE 400 MG TABLET (FP) PO SCH (09:13)
[2018-10-04] MEDS: DULoxetine HCL 30 MG CAPSULE.DR (FP) PO SCH (09:13)
[2018-10-04] MEDS: MULTIVITAMINS (DAILY MVI) TABLET (FP) PO SCH (09:13)
[2018-10-04] MEDS: PANTOPRAZOLE 40 MG TABLET (FP) PO SCH (09:13)
[2018-10-04] MEDS: CALCIUM 500MG/VIT-D 200 UNITS COMBO TABLET (FP) PO SCH (09:13)
[2018-10-04] MEDS: FLUCONAZOLE 100 MG TABLET (UD) PO SCH (09:14)
[2018-10-04] MEDS: APIXABAN 5 MG TABLET PO SCH ×2 (09:14→21:40)
[2018-10-04] MEDS: MESALAMINE 800 MG TABLET.DR PO SCH ×3 (09:14→17:22)
--- NOTE | 2018-10-04 09:14 | PN ---
Physical Exam: SUBJECTIVE: Patient seen and examined at bedside. no acute events overnight- patient has remained afebrile. She denies any CP/SOB/N/V fevers or chills. has not has any abdominal complaints since shes been here OBJECTIVE: Vital Signs Period Temp Pulse Resp BP Sys/Funes Pulse Ox Last 24 Hr 98.1 F-99.2 F 90-96 18-19 114-133/64-70 98 GENERAL: The patient is awake, alert, and fully oriented, in no acute distress. EYES: no scleral icterus NECK: no JVD, no lymphadenopathy LUNGS:CTA B/L; no rales, rhonchi or wheezing HEART: Regular rate and rhythm, S1, S2 without murmur, rub or gallop. ABDOMEN: Soft, nontender, nondistended, normoactive bowel sounds, no guarding, no rebound, no hepatosplenomegaly, no masses. EXTREMITIES: 2+ pulses, warm, well-perfused, no edema, no calf tenderness or erythema. PSYCH: Normal mood, normal affect. SKIN: Warm, dry, normal turgor, no rashes or lesions noted Laboratory Results - last 24 hr 10/03/18 10/03/18 10/03/18 11:43 16:45 21:36 POC Glucometer 192 315 163 10/04/18 05:47 POC Glucometer 174 Active Medications Generic Name Dose Route Start Last Admin Trade Name Freq PRN Reason Stop Dose Admin Acetaminophen 650 mg 09/29/18 01:02 10/04/18 06:28 Tylenol - PO 650 mg Q4H PRN Administration PAIN LEVEL 6-10 Apixaban 10 mg 09/29/18 22:00 10/03/18 21:43 Eliquis - PO 10 mg BID YAMILKA Administration Calcium Carbonate/Cholecalciferol 2 tab 09/29/18 10:00 10/03/18 09:47 Os-Willy 500+D - PO 2 tab DAILY YAMILKA Administration Collagenase 1 applic 10/02/18 10:00 10/03/18 09:48 Santyl - TP 1 applic DAILY YAMILKA Administration Protocol Duloxetine HCl 30 mg 09/29/18 10:00 10/03/18 09:48 Cymbalta - PO 30 mg DAILY YAMILKA Administration Fenofibric Acid 135 mg 09/29/18 10:00 10/03/18 09:49 Trilipix - PO 135 mg DAILY YAMILKA Administration Ferrous Sulfate 325 mg 09/29/18 10:00 10/03/18 09:47 Feosol - PO 325 mg DAILY YAMILKA Administration Fluconazole 100 mg 10/02/18 12:45 10/03/18 09:48 Diflucan - PO 100 mg DAILY YAMILKA Administration Daptomycin 300 mg/ Sodium 50 mls @ 50 mls/hr 10/03/18 14:00 10/03/18 16:44 Chloride IVPB 50 mls/hr DAILY@1400 YAMILKA Administration Protocol Piperacillin Sod/Tazobactam 50 mls @ 100 mls/hr 10/03/18 13:30 10/04/18 01: 13 EST Sod 3.375 gm/ Dextrose IVPB 100 mls/hr Q8H-IV YAMILKA Administration Protocol Insulin Aspart 1 vial 09/29/18 07:00 10/04/18 06:04 Novolog Vial Sliding Scale - SQ 2 unit ACHS YAMILKA Administration Protocol Magnesium Oxide 400 mg 09/29/18 10:00 10/03/18 09:47 Mag-Ox - PO 400 mg DAILY YAMILKA Administration Mesalamine 800 mg 09/29/18 08:00 10/03/18 16:46 Asacol Hd - PO 800 mg TIDCM YAMILKA Administration Multivitamins/Minerals/Vitamin C 1 tab 09/29/18 10:00 10/03/18 09:49 Tab-A-Vit - PO 1 tab DAILY YAMILKA Administration Pantoprazole Sodium 40 mg 09/29/18 10:00 10/03/18 09:47 Protonix - PO 40 mg DAILY YAMILKA Administration ASSESSMENT/PLAN: 58 y/o with PMH of DVTs, sigmoid microperforation, DM, anemia, HTN, presents with left lower extremity pain and swelling, sacral ulcers,c upon arrival now found to have right and left lower lobe segmental PEs and DVTs. #) Pulmonary Embolism -day 5/7 of eliquis at 10mg BID -plan is for patient to go for IVC filter tomorrow as long as she remains afebrile #) Sepsis possibly 2/2 wound abscess or UTI patient no longer spiking fevers -sacral wound abcess growing VRE, proteus vulgaris, corynebacterium -patient growing yeast-like organism in urine- awaiting sensitivities -ID on board -patient on day 3 of diflucan, day 2 of daptomycin, and day 2 of zosyn -monitor for fevers #) DM -holding home anti-diabetics -ISS -BGMS ACHS #) Sacral Ulcers -seen by surgery; appreciate their recs -they recommended santyl and foam dressing -q2h turning; OOB -ID consulted- recs appreciated -c/w antibiotics #)HTN -resume home medications #)HLD -resume lipitor 20 daily F/E/N LR @100mls/hr replete electrolytes when necessary diabetic diet Problem List - Problems (1) Pulmonary embolism Code(s): I26.99 - OTHER PULMONARY EMBOLISM WITHOUT ACUTE COR PULMONALE (2) HTN (hypertension) Code(s): I10 - ESSENTIAL (PRIMARY) HYPERTENSION (3) Decubitus ulcer of sacral area Code(s): L89.159 - PRESSURE ULCER OF SACRAL REGION, UNSPECIFIED STAGE (4) DVT (deep venous thrombosis) Code(s): I82.409 - ACUTE EMBOLISM AND THOMBOS UNSP DEEP VN UNSP LOWER EXTREMITY Visit type - Emergency Visit Emergency Visit: Yes ED Registration Date: 09/28/18 Care time: The patient presented to the Emergency Department on the above date and was hospitalized for further evaluation of their emergent condition. - New Patient This patient is new to me today: No - Critical Care Critical Care patient: No
[2018-10-04] MEDS: FENOFIBRIC ACID 135 MG CAP PO SCH (09:15)
[2018-10-04] MEDS: COLLAGENASE CLOSTRIDIUM HIST. 30 GRAMS TUBE TP SCH (09:16)
--- NOTE | 2018-10-04 10:17 | PN ---
Teaching Attending Note Name of Resident: Bettie Marroquin ATTENDING PHYSICIAN STATEMENT I saw and evaluated the patient. I reviewed the resident's note and discussed the case with the resident. I agree with the resident's findings and plan as documented. SUBJECTIVE:asymptomatic. denies CP, SOB, fever, chills, n/V/C/D OBJECTIVE: Last Vital Signs Temp Pulse Resp BP Pulse Ox 99.2 F 90 18 114/65 98 10/04/18 05:00 10/04/18 05:00 10/04/18 05:00 10/04/18 05:00 10/03/18 21:00 General NAD CV S1 S2 RRR Lungs CTA B/L no wheezing/rales/rhonchi ASSESSMENT AND PLAN: 58 yo F with PMHx of Gastric bypass (?2004), recurrent anemia, prior EGD/ colonoscopy in 05/2018 showing gastric ulcers at anastomotic site/Possible ischemic colitis, recent RLE DVT on eliquis, IDDM, HTN, chronic diarrhea, opioid dependence, with recent hospitalization for opiate overdose complicated by sigmoid microperforation came to the ER wtih leg swelling and pain and found to have RLL PE and LLE DVT. 1. RLL PE and LLE DVT- hemodynamically stable. agreeable for filter however plan is for friday and afebrile 24H. on Eliquis day 04/06 of elevated dose and then will reduce to 5mg BID. will need to pursue hypercoagbility workup with heme as outpatient 2. UTI-+yeast. pm diflucan day 3. can d/c today. d/c ceftriaxone 3. Sacral decub-+VRE. started on daptomycin and zosyn day 2. cont wound care recommendations per vasc surgery. contact precautions. ID on board 4. anemia- Hgb is stable. cont iron supplements. no signs of bleeding. no indication for transfusion 5. DM- hold oral agents. cont ISS and BGM 6. HTN- controlled. cont home medication
--- NOTE | 2018-10-04 12:33 | PN ---
Progress Note, Physician History of Present Illness: continues to look better still spiking fevers says she is better - Current Medication List Current Medications: Active Medications Acetaminophen (Tylenol -) 650 mg PO Q4H PRN PRN Reason: PAIN LEVEL 6-10 Last Admin: 10/04/18 06:28 Dose: 650 mg Apixaban (Eliquis -) 10 mg PO BID [facility] Last Admin: 10/04/18 09:14 Dose: 10 mg Calcium Carbonate/Cholecalciferol (Os-Willy 500+D -) 2 tab PO DAILY [facility] Last Admin: 10/04/18 09:13 Dose: 2 tab Collagenase (Santyl -) 1 applic TP DAILY [facility]; Protocol Last Admin: 10/04/18 09:16 Dose: 1 applic Duloxetine HCl (Cymbalta -) 30 mg PO DAILY [facility] Last Admin: 10/04/18 09:13 Dose: 30 mg Fenofibric Acid (Trilipix -) 135 mg PO DAILY [facility] Last Admin: 10/04/18 09:15 Dose: 135 mg Ferrous Sulfate (Feosol -) 325 mg PO DAILY [facility] Last Admin: 10/04/18 09:13 Dose: 325 mg Fluconazole (Diflucan -) 100 mg PO DAILY [facility] Last Admin: 10/04/18 09:14 Dose: 100 mg Daptomycin 300 mg/ Sodium (Chloride) 50 mls @ 50 mls/hr IVPB DAILY@1400 [facility]; Protocol Last Admin: 10/03/18 16:44 Dose: 50 mls/hr Piperacillin Sod/Tazobactam (Sod 3.375 gm/ Dextrose) 50 mls @ 100 mls/hr IVPB Q8H-IV [facility]; Protocol Last Admin: 10/04/18 09:14 Dose: 100 mls/hr Insulin Aspart (Novolog Vial Sliding Scale -) 1 vial SQ ACHS [facility]; Protocol Last Admin: 10/04/18 11:43 Dose: 2 unit Magnesium Oxide (Mag-Ox -) 400 mg PO DAILY [facility] Last Admin: 10/04/18 09:13 Dose: 400 mg Mesalamine (Asacol Hd -) 800 mg PO TIDCM [facility] Last Admin: 10/04/18 09:14 Dose: 800 mg Multivitamins/Minerals/Vitamin C (Tab-A-Vit -) 1 tab PO DAILY [facility] Last Admin: 10/04/18 09:13 Dose: 1 tab Pantoprazole Sodium (Protonix -) 40 mg PO DAILY [facility] Last Admin: 10/04/18 09:13 Dose: 40 mg - Objective Vital Signs: Vital Signs Temperature 98.8 F 10/04/18 09:00 Pulse Rate 92 H 10/04/18 09:00 Respiratory Rate 18 10/04/18 09:00 Blood Pressure 112/64 10/04/18 09:00 O2 Sat by Pulse Oximetry (%) 98 10/03/18 21:00 Constitutional: Yes: No Distress, Calm Cardiovascular: Yes: Regular Rate and Rhythm Respiratory: Yes: Regular, CTA Bilaterally Gastrointestinal: Yes: Normal Bowel Sounds, Soft Musculoskeletal: Yes: WNL Extremities: Yes: Other Wound/Incision: Yes: Other (sacral ulcers) Neurological: Yes: Alert, Oriented Psychiatric: Yes: Alert, Oriented Labs: CBC, BMP 10/03/18 06:30 10/03/18 06:30 INR, PTT INR 1.31 (0.83-1.09) H 09/28/18 19:20 Assessment/Plan Problem List - Problems (1) Pulmonary embolism Code(s): I26.99 - OTHER PULMONARY EMBOLISM WITHOUT ACUTE COR PULMONALE (2) HTN (hypertension) Code(s): I10 - ESSENTIAL (PRIMARY) HYPERTENSION (3) Decubitus ulcer of sacral area Code(s): L89.159 - PRESSURE ULCER OF SACRAL REGION, UNSPECIFIED STAGE (4) DVT (deep venous thrombosis) Code(s): I82.409 - ACUTE EMBOLISM AND THOMBOS UNSP DEEP VN UNSP LOWER EXTREMITY 5 sacral ulcers [address] abx continue diflucan all cx reports noted abx adjusted rest as per the team
[2018-10-04] MEDS: DAPTOMYCIN 300 MG in SODIUM CHLORIDE 50 ML IVPB SCH (14:34)
[2018-10-04] MEDS ORDERED: INSULIN (NOVOLOG) ASPART 100 UNITS/ML 10ML VIAL ONE (20:29)
[2018-10-05] MEDS ORDERED: PIPERACILLIN/TAZOBACTAM 3.375 GM VIAL IVPB ONE ×3 (01:47→17:38)
[2018-10-05] MEDS ORDERED: DEXTROSE 5%-WATER - 50 ML IVPB ONE ×3 (01:47→17:38)
[2018-10-05] MEDS: PIPERACILLIN/TAZOB 3.375 GM 3.375 GM in DEXTROSE 5%-WATER - 50 ML IVPB SCH ×3 (01:58→17:45)
[2018-10-05] MEDS: ACETAMINOPHEN 325 MG TABLET (FP) PO PRN ×3 (02:41→18:18)
[2018-10-05] MEDS: INSULIN SLIDING SCALE (NOVOLOG) 1 VIAL SQ SCH ×4 (06:01→21:29)
[2018-10-05 07:17] LABS: HEMATOCRIT 30.7 % (32.4-45.2); HEMOGLOBIN 10.3 GM/dL (10.7-15.3); MCH 26.8 pg (25.7-33.7); MCHC 33.5 g/dl (32.0-36.0); MEAN CELL VOLUME 80.1 fl (80-96); MEAN PLT VOLUME 8.4 fl (7.5-11.1); PLATELET COUNT 385 K/MM3 (134-434); RBC 3.83 M/mm3 (3.60-5.2); RDW 17.5 % (11.6-15.6); WHITE BLOOD COUNT 6.5 K/mm3 (4.0-10.0)
[2018-10-05 07:45] LABS: ANION GAP 7 MMOL/L (8-16); BLOOD UREA NITROGEN 9 mg/dL (7-18); CALCIUM 7.9 mg/dL (8.5-10.1); CHLORIDE 106 mmol/L (98-107); CO2 27 mmol/L (21-32); CREATININE 0.6 mg/dL (0.55-1.3); GLUCOSE,RANDOM 155 mg/dL (74-106); POTASSIUM 4.2 mmol/L (3.5-5.1); SODIUM 140 mmol/L (136-145)
[2018-10-05] MEDS: MESALAMINE 800 MG TABLET.DR PO SCH ×3 (08:11→17:45)
--- NOTE | 2018-10-05 09:00 | PN ---
Physical Exam: SUBJECTIVE: Patient seen and examined at bedside. no acute events overnight- patient has not been spiking anymore fevers, she denies any CP/SOB/N/V fevers or chills. she is supposedly going for her IVC filter tomorrow OBJECTIVE: Vital Signs Period Temp Pulse Resp BP Sys/Funes Pulse Ox Last 24 Hr 98.4 F-99.8 F 78-100 18-20 112-137/55-83 98 GENERAL: The patient is awake, alert, and fully oriented, in no acute distress. EYES: no scleral icterus . . NECK: no JVD, no lymphadenopathy LUNGS: CTA B/L; no rales, rhonchi or wheezing. HEART: Regular rate and rhythm, S1, S2 without murmur, rub or gallop. ABDOMEN: Soft, nontender, nondistended, normoactive bowel sounds, no guarding, no rebound, no hepatosplenomegaly, no masses. EXTREMITIES: 2+ pulses, warm, well-perfused, no edema, no calf erythema or tenderness. PSYCH: Normal mood, normal affect. SKIN: Warm, dry, normal turgor, no rashes or lesions noted Laboratory Results - last 24 hr 10/04/18 10/04/18 10/04/18 11:16 16:45 21:42 WBC RBC Hgb Hct MCV MCH MCHC RDW Plt Count MPV Sodium Potassium Chloride Carbon Dioxide Anion Gap BUN Creatinine Creat Clearance w eGFR POC Glucometer 178 204 181 Random Glucose Calcium 10/05/18 10/05/18 10/05/18 05:56 06:40 06:40 WBC 6.5 RBC 3.83 Hgb 10.3 L Hct 30.7 L MCV 80.1 MCH 26.8 MCHC 33.5 RDW 17.5 H Plt Count 385 D MPV 8.4 Sodium 140 Potassium 4.2 Chloride 106 Carbon Dioxide 27 Anion Gap 7 L BUN 9 Creatinine 0.6 Creat Clearance w eGFR > 60 POC Glucometer 165 Random Glucose 155 H Calcium 7.9 L Active Medications Generic Name Dose Route Start Last Admin Trade Name Freq PRN Reason Stop Dose Admin Acetaminophen 650 mg 09/29/18 01:02 10/05/18 02:41 Tylenol - PO 650 mg Q4H PRN Administration PAIN LEVEL 6-10 Apixaban 10 mg 09/29/18 22:00 10/04/18 21:40 Eliquis - PO Not Given BID [facility] Calcium Carbonate/Cholecalciferol 2 tab 09/29/18 10:00 10/04/18 09:13 Os-Willy 500+D - PO 2 tab DAILY [facility] Administration Collagenase 1 applic 10/02/18 10:00 10/04/18 09:16 Santyl - TP 1 applic DAILY [facility] Administration Protocol Duloxetine HCl 30 mg 09/29/18 10:00 10/04/18 09:13 Cymbalta - PO 30 mg DAILY [facility] Administration Fenofibric Acid 135 mg 09/29/18 10:00 10/04/18 09:15 Trilipix - PO 135 mg DAILY [facility] Administration Ferrous Sulfate 325 mg 09/29/18 10:00 10/04/18 09:13 Feosol - PO 325 mg DAILY [facility] Administration Daptomycin 300 mg/ Sodium 50 mls @ 50 mls/hr 10/03/18 14:00 10/04/18 14:34 Chloride IVPB 50 mls/hr DAILY@1400 [facility] Administration Protocol Piperacillin Sod/Tazobactam 50 mls @ 100 mls/hr 10/03/18 13:30 10/05/18 01:58 Sod 3.375 gm/ Dextrose IVPB 100 mls/hr Q8H-IV [facility] Administration Protocol Insulin Aspart 1 vial 09/29/18 07:00 10/05/18 06:01 Novolog Vial Sliding Scale - SQ 2 unit [facility] Administration Protocol Magnesium Oxide 400 mg 09/29/18 10:00 10/04/18 09:13 Mag-Ox - PO 400 mg DAILY [facility] Administration Mesalamine 800 mg 09/29/18 08:00 10/05/18 08:11 Asacol Hd - PO Not Given TIDCM [facility] Multivitamins/Minerals/Vitamin C 1 tab 09/29/18 10:00 10/04/18 09:13 Tab-A-Vit - PO 1 tab DAILY [facility] Administration Pantoprazole Sodium 40 mg 09/29/18 10:00 10/04/18 09:13 Protonix - PO 40 mg DAILY [facility] Administration ASSESSMENT/PLAN: 58 y/o with PMH of DVTs, sigmoid microperforation, DM, anemia, HTN, presents with left lower extremity pain and swelling, sacral ulcers,c upon arrival now found to have right and left lower lobe segmental PEs and DVTs. #) Pulmonary Embolism -day 5/7 of eliquis at 10mg BID -plan is for patient to go for IVC filter tomorrow -NPO after midnight #) Sepsis possibly 2/2 wound abscess or UTI patient no longer spiking fevers -sacral wound abcess growing VRE, proteus vulgaris, corynebacterium -patient growing yeast-like organism in urine- awaiting sensitivities -ID on board - patient on day 3 of daptomycin, and day 3 of zosyn -monitor for fevers #) DM -holding home anti-diabetics -ISS -BGMS ACHS #) Sacral Ulcers -seen by surgery; appreciate their recs -they recommended santyl and foam dressing -q2h turning; OOB -ID consulted- recs appreciated -c/w antibiotics #)HTN -resume home medications #)HLD -resume lipitor 20 daily F/E/N LR @100mls/hr replete electrolytes when necessary diabetic diet Problem List - Problems (1) Pulmonary embolism Code(s): I26.99 - OTHER PULMONARY EMBOLISM WITHOUT ACUTE COR PULMONALE (2) HTN (hypertension) Code(s): I10 - ESSENTIAL (PRIMARY) HYPERTENSION (3) Decubitus ulcer of sacral area Code(s): L89.159 - PRESSURE ULCER OF SACRAL REGION, UNSPECIFIED STAGE (4) DVT (deep venous thrombosis) Code(s): I82.409 - ACUTE EMBOLISM AND THOMBOS UNSP DEEP VN UNSP LOWER EXTREMITY Visit type - Emergency Visit Emergency Visit: Yes ED Registration Date: 09/28/18 Care time: The patient presented to the Emergency Department on the above date and was hospitalized for further evaluation of their emergent condition. - New Patient This patient is new to me today: No - Critical Care Critical Care patient: No
--- NOTE | 2018-10-05 09:46 | PN ---
Progress Note (short form) - Note Progress Note: Vascular Surgery Pt seen and examined. Will place IVC filter dennis. NPO past midnight can eat today. ID eval for postive cultures. Fredis holguin dO
[2018-10-05] MEDS ORDERED: PT OWN MED DRAWER 7, Y5N ONE (10:58)
[2018-10-05] MEDS: MAGNESIUM OXIDE 400 MG TABLET (FP) PO SCH (11:12)
[2018-10-05] MEDS: CALCIUM 500MG/VIT-D 200 UNITS COMBO TABLET (FP) PO SCH (11:13)
[2018-10-05] MEDS: DULoxetine HCL 30 MG CAPSULE.DR (FP) PO SCH (11:13)
[2018-10-05] MEDS: FENOFIBRIC ACID 135 MG CAP PO SCH (11:13)
[2018-10-05] MEDS: PANTOPRAZOLE 40 MG TABLET (FP) PO SCH (11:13)
[2018-10-05] MEDS: FERROUS SO4 325 MG TABLET (FP) PO SCH (11:13)
[2018-10-05] MEDS: MULTIVITAMINS (DAILY MVI) TABLET (FP) PO SCH (11:14)
[2018-10-05] MEDS: COLLAGENASE CLOSTRIDIUM HIST. 30 GRAMS TUBE TP SCH (12:41)
--- NOTE | 2018-10-05 13:17 | PN ---
Progress Note, Physician History of Present Illness: stable no issues - Current Medication List Current Medications: Active Medications Acetaminophen (Tylenol -) 650 mg PO Q4H PRN PRN Reason: PAIN LEVEL 6-10 Last Admin: 10/05/18 12:42 Dose: 650 mg Apixaban (Eliquis -) 10 mg PO BID [facility] Last Admin: 10/04/18 21:40 Dose: Not Given Calcium Carbonate/Cholecalciferol (Os-Willy 500+D -) 2 tab PO DAILY [facility] Last Admin: 10/05/18 11:13 Dose: 2 tab Collagenase (Santyl -) 1 applic TP DAILY [facility]; Protocol Last Admin: 10/05/18 12:41 Dose: 1 applic Duloxetine HCl (Cymbalta -) 30 mg PO DAILY [facility] Last Admin: 10/05/18 11:13 Dose: 30 mg Fenofibric Acid (Trilipix -) 135 mg PO DAILY [facility] Last Admin: 10/05/18 11:13 Dose: 135 mg Ferrous Sulfate (Feosol -) 325 mg PO DAILY [facility] Last Admin: 10/05/18 11:13 Dose: 325 mg Daptomycin 300 mg/ Sodium (Chloride) 50 mls @ 50 mls/hr IVPB DAILY@1400 [facility]; Protocol Last Admin: 10/04/18 14:34 Dose: 50 mls/hr Piperacillin Sod/Tazobactam (Sod 3.375 gm/ Dextrose) 50 mls @ 100 mls/hr IVPB Q8H-IV [facility]; Protocol Last Admin: 10/05/18 11:14 Dose: 100 mls/hr Insulin Aspart (Novolog Vial Sliding Scale -) 1 vial SQ ACHS [facility]; Protocol Last Admin: 10/05/18 11:15 Dose: 4 unit Magnesium Oxide (Mag-Ox -) 400 mg PO DAILY [facility] Last Admin: 10/05/18 11:12 Dose: 400 mg Mesalamine (Asacol Hd -) 800 mg PO TIDCM [facility] Last Admin: 10/05/18 11:14 Dose: 800 mg Multivitamins/Minerals/Vitamin C (Tab-A-Vit -) 1 tab PO DAILY [facility] Last Admin: 10/05/18 11:14 Dose: 1 tab Pantoprazole Sodium (Protonix -) 40 mg PO DAILY [facility] Last Admin: 10/05/18 11:13 Dose: 40 mg - Objective Vital Signs: Vital Signs Temperature 98 F 10/05/18 10:00 Pulse Rate 80 10/05/18 10:00 Respiratory Rate 20 10/05/18 10:00 Blood Pressure 135/82 10/05/18 10:00 O2 Sat by Pulse Oximetry (%) 98 10/05/18 09:00 Constitutional: Yes: No Distress, Calm Cardiovascular: Yes: Regular Rate and Rhythm Respiratory: Yes: Regular, CTA Bilaterally Gastrointestinal: Yes: Normal Bowel Sounds, Soft Extremities: Yes: Other Edema: LLE: 1+ Integumentary: Yes: Other Wound/Incision: Yes: Other Neurological: Yes: Alert, Oriented Psychiatric: Yes: Alert, Oriented Labs: CBC, BMP 10/05/18 06:40 10/05/18 06:40 INR, PTT INR 1.31 (0.83-1.09) H 09/28/18 19:20 - ....Imaging Chest X-ray: Report Reviewed, Image Reviewed Assessment/Plan Problem List - Problems (1) Pulmonary embolism Code(s): I26.99 - OTHER PULMONARY EMBOLISM WITHOUT ACUTE COR PULMONALE (2) HTN (hypertension) Code(s): I10 - ESSENTIAL (PRIMARY) HYPERTENSION (3) Decubitus ulcer of sacral area Code(s): L89.159 - PRESSURE ULCER OF SACRAL REGION, UNSPECIFIED STAGE (4) DVT (deep venous thrombosis) Code(s): I82.409 - ACUTE EMBOLISM AND THOMBOS UNSP DEEP VN UNSP LOWER EXTREMITY 5 sacral ulcers [address] abx continue diflucan rest as per the team patient for ivc filter tomorrow
--- NOTE | 2018-10-05 15:37 | PN ---
Teaching Attending Note Name of Resident: Bettie Marroquin ATTENDING PHYSICIAN STATEMENT I saw and evaluated the patient. I reviewed the resident's note and discussed the case with the resident. I agree with the resident's findings and plan as documented. SUBJECTIVE:asymptomatic. denies Cp, SOB, fever, chills, N/V/C/D OBJECTIVE: Last Vital Signs Temp Pulse Resp BP Pulse Ox 99.4 F 96 H 20 132/71 98 10/05/18 13:55 10/05/18 13:55 10/05/18 13:55 10/05/18 13:55 10/05/18 09:00 General NAD ASSESSMENT AND PLAN: 58 yo F with PMHx of Gastric bypass (?2004), recurrent anemia, prior EGD/ colonoscopy in 05/2018 showing gastric ulcers at anastomotic site/Possible ischemic colitis, recent RLE DVT on eliquis, IDDM, HTN, chronic diarrhea, opioid dependence, with recent hospitalization for opiate overdose complicated by sigmoid microperforation came to the ER wtih leg swelling and pain and found to have RLL PE and LLE DVT. 1. RLL PE and LLE DVT- hemodynamically stable. agreeable for IVC filter. NPO for placement tomorrow. on Eliquis day 6/7 of elevated dose and then will reduce to 5mg BID. will need to pursue hypercoagbility workup with heme as outpatient 2. UTI-+yeast.s/p treatment 3. Sacral decub-+VRE. started on daptomycin and zosyn day 3. cont wound care recommendations per vas surgery. contact precautions. ID on board 4. anemia- Hgb is stable. cont iron supplements. no signs of bleeding. no indication for transfusion 5. DM- hold oral agents. cont ISS and BGM 6. HTN- controlled. cont home medication
[2018-10-05] MEDS: DAPTOMYCIN 300 MG in SODIUM CHLORIDE 50 ML IVPB SCH (15:57)
[2018-10-05] MEDS: APIXABAN 5 MG TABLET PO SCH (20:59)
[2018-10-05] MEDS ORDERED: INSULIN (NOVOLOG) ASPART 100 UNITS/ML 10ML VIAL ONE (21:01)
[2018-10-06] MEDS: ACETAMINOPHEN 325 MG TABLET (FP) PO PRN ×3 (00:09→17:33)
[2018-10-06] MEDS ORDERED: DEXTROSE 5%-WATER - 50 ML IVPB ONE ×2 (01:49→17:08)
[2018-10-06] MEDS ORDERED: PIPERACILLIN/TAZOBACTAM 3.375 GM VIAL IVPB ONE ×3 (01:49→17:08)
[2018-10-06] MEDS: PIPERACILLIN/TAZOB 3.375 GM 3.375 GM in DEXTROSE 5%-WATER - 50 ML IVPB SCH ×3 (01:53→17:14)
[2018-10-06] MEDS: INSULIN SLIDING SCALE (NOVOLOG) 1 VIAL SQ SCH ×4 (06:15→22:04)
[2018-10-06] MEDS: MESALAMINE 800 MG TABLET.DR PO SCH ×3 (07:26→17:14)
[2018-10-06] MEDS: DULoxetine HCL 30 MG CAPSULE.DR (FP) PO SCH (09:24)
[2018-10-06] MEDS: COLLAGENASE CLOSTRIDIUM HIST. 30 GRAMS TUBE TP SCH (09:24)
[2018-10-06] MEDS: MULTIVITAMINS (DAILY MVI) TABLET (FP) PO SCH (09:25)
[2018-10-06] MEDS: FENOFIBRIC ACID 135 MG CAP PO SCH (09:25)
[2018-10-06] MEDS: APIXABAN 5 MG TABLET PO SCH (09:25)
[2018-10-06] MEDS: PANTOPRAZOLE 40 MG TABLET (FP) PO SCH (09:25)
[2018-10-06] MEDS: FERROUS SO4 325 MG TABLET (FP) PO SCH (09:25)
[2018-10-06] MEDS: MAGNESIUM OXIDE 400 MG TABLET (FP) PO SCH (09:25)
[2018-10-06] MEDS: CALCIUM 500MG/VIT-D 200 UNITS COMBO TABLET (FP) PO SCH (09:25)
--- NOTE | 2018-10-06 12:10 | PN ---
Progress Note, Physician History of Present Illness: stable no issues going for ivc filter - Current Medication List Current Medications: Active Medications Acetaminophen (Tylenol -) 650 mg PO Q4H PRN PRN Reason: PAIN LEVEL 6-10 Last Admin: 10/06/18 08:15 Dose: 650 mg Apixaban (Eliquis -) 10 mg PO BID [facility] Last Admin: 10/06/18 09:25 Dose: Not Given Calcium Carbonate/Cholecalciferol (Os-Willy 500+D -) 2 tab PO DAILY [facility] Last Admin: 10/06/18 09:25 Dose: Not Given Collagenase (Santyl -) 1 applic TP DAILY [facility]; Protocol Last Admin: 10/06/18 09:24 Dose: 1 applic Duloxetine HCl (Cymbalta -) 30 mg PO DAILY [facility] Last Admin: 10/06/18 09:24 Dose: Not Given Fenofibric Acid (Trilipix -) 135 mg PO DAILY [facility] Last Admin: 10/06/18 09:25 Dose: Not Given Ferrous Sulfate (Feosol -) 325 mg PO DAILY [facility] Last Admin: 10/06/18 09:25 Dose: Not Given Daptomycin 300 mg/ Sodium (Chloride) 50 mls @ 50 mls/hr IVPB DAILY@1400 [facility]; Protocol Last Admin: 10/05/18 15:57 Dose: 50 mls/hr Piperacillin Sod/Tazobactam (Sod 3.375 gm/ Dextrose) 50 mls @ 100 mls/hr IVPB Q8H-IV [facility]; Protocol Last Admin: 10/06/18 09:24 Dose: 100 mls/hr Insulin Aspart (Novolog Vial Sliding Scale -) 1 vial SQ ACHS [facility]; Protocol Last Admin: 10/06/18 06:15 Dose: Not Given Magnesium Oxide (Mag-Ox -) 400 mg PO DAILY [facility] Last Admin: 10/06/18 09:25 Dose: Not Given Mesalamine (Asacol Hd -) 800 mg PO TIDCM [facility] Last Admin: 10/06/18 07:26 Dose: Not Given Multivitamins/Minerals/Vitamin C (Tab-A-Vit -) 1 tab PO DAILY [facility] Last Admin: 10/06/18 09:25 Dose: Not Given Pantoprazole Sodium (Protonix -) 40 mg PO DAILY [facility] Last Admin: 10/06/18 09:25 Dose: Not Given - Objective Vital Signs: Vital Signs Temperature 98.8 F 10/06/18 10:14 Pulse Rate 83 10/06/18 10:14 Respiratory Rate 18 10/06/18 10:14 Blood Pressure 110/60 10/06/18 10:14 O2 Sat by Pulse Oximetry (%) 97 10/05/18 21:00 Constitutional: Yes: No Distress, Calm Cardiovascular: Yes: S1, S2 Respiratory: Yes: Regular, CTA Bilaterally Gastrointestinal: Yes: Normal Bowel Sounds, Soft Musculoskeletal: Yes: WNL Extremities: Yes: WNL Wound/Incision: Yes: Other (sacral ulcer) Neurological: Yes: Alert, Oriented Psychiatric: Yes: Alert, Oriented Labs: CBC, BMP 10/05/18 06:40 10/05/18 06:40 INR, PTT INR 1.31 (0.83-1.09) H 09/28/18 19:20 Assessment/Plan patient spiking fevers still could be due to the embolism,it seems patient has refused the ivc filter fevers could be due to pe but cannot r/o infection from the sacral as she has couple of openings patient was treated last time and she did not complete the treatment as she has been non compliant Problem List - Problems (1) Pulmonary embolism Code(s): I26.99 - OTHER PULMONARY EMBOLISM WITHOUT ACUTE COR PULMONALE (2) HTN (hypertension) Code(s): I10 - ESSENTIAL (PRIMARY) HYPERTENSION (3) Decubitus ulcer of sacral area Code(s): L89.159 - PRESSURE ULCER OF SACRAL REGION, UNSPECIFIED STAGE (4) DVT (deep venous thrombosis) Code(s): I82.409 - ACUTE EMBOLISM AND THOMBOS UNSP DEEP VN UNSP LOWER EXTREMITY 5 sacral ulcers 6 fevers plan continue abx continue current mgmt patient stable for ivc filter
--- NOTE | 2018-10-06 12:27 | PN ---
Physical Exam: SUBJECTIVE: Patient seen and examined at bedside. No acute events overnight patient states she is feeling well. she denies any CP/SOB/N/V fevers or chills- no more fever spikes, patient is going for IVC filter today. OBJECTIVE: Vital Signs Period Temp Pulse Resp BP Sys/Funes Pulse Ox Last 24 Hr 98 F-99.4 F 81-96 18-21 110-132/59-71 97 GENERAL: The patient is awake, alert, and fully oriented, in no acute distress.. EYES: Pno scleral icterus. NECK: no JVD, no lymphadenopathy LUNGS: CTA B/L; no rales, rhonchi or wheezing HEART: Regular rate and rhythm, S1, S2 without murmur, rub or gallop. ABDOMEN: Soft, nontender, nondistended, normoactive bowel sounds, no guarding, no rebound, no hepatosplenomegaly, no masses. EXTREMITIES: 2+ pulses, warm, well-perfused, no edema, no calf tenderness or erythema. PSYCH: Normal mood, normal affect. SKIN: Warm, dry, normal turgor, no rashes or lesions noted Laboratory Results - last 24 hr 10/05/18 10/05/18 10/06/18 17:07 21:29 05:44 POC Glucometer 143 205 145 10/06/18 11:07 POC Glucometer 120 Active Medications Generic Name Dose Route Start Last Admin Trade Name Freq PRN Reason Stop Dose Admin Acetaminophen 650 mg 09/29/18 01:02 10/06/18 08:15 Tylenol - PO 650 mg Q4H PRN Administration PAIN LEVEL 6-10 Apixaban 10 mg 09/29/18 22:00 10/06/18 09:25 Eliquis - PO Not Given BID [facility] Calcium Carbonate/Cholecalciferol 2 tab 09/29/18 10:00 10/06/18 09:25 Os-Willy 500+D - PO Not Given DAILY [facility] Collagenase 1 applic 10/02/18 10:00 10/06/18 09:24 Santyl - TP 1 applic DAILY [facility] Administration Protocol Duloxetine HCl 30 mg 09/29/18 10:00 10/06/18 09:24 Cymbalta - PO Not Given DAILY [facility] Fenofibric Acid 135 mg 09/29/18 10:00 10/06/18 09:25 Trilipix - PO Not Given DAILY [facility] Ferrous Sulfate 325 mg 09/29/18 10:00 10/06/18 09:25 Feosol - PO Not Given DAILY [facility] Daptomycin 300 mg/ Sodium 50 mls @ 50 mls/hr 10/03/18 14:00 10/05/18 15:57 Chloride IVPB 50 mls/hr DAILY@1400 [facility] Administration Protocol Piperacillin Sod/Tazobactam 50 mls @ 100 mls/hr 10/03/18 13:30 10/06/18 09:24 Sod 3.375 gm/ Dextrose IVPB 100 mls/hr Q8H-IV [facility] Administration Protocol Insulin Aspart 1 vial 09/29/18 07:00 10/06/18 12:19 Novolog Vial Sliding Scale - SQ Not Given ACHS [facility] Protocol Magnesium Oxide 400 mg 09/29/18 10:00 10/06/18 09:25 Mag-Ox - PO Not Given DAILY [facility] Mesalamine 800 mg 09/29/18 08:00 10/06/18 07:26 Asacol Hd - PO Not Given TIDCM [facility] Multivitamins/Minerals/Vitamin C 1 tab 09/29/18 10:00 10/06/18 09:25 Tab-A-Vit - PO Not Given DAILY [facility] Pantoprazole Sodium 40 mg 09/29/18 10:00 10/06/18 09:25 Protonix - PO Not Given DAILY [facility] ASSESSMENT/PLAN: 58 y/o with PMH of DVTs, sigmoid microperforation, DM, anemia, HTN, presents with left lower extremity pain and swelling, sacral ulcers,c upon arrival now found to have right and left lower lobe segmental PEs and DVTs. #) Pulmonary Embolism -day 5/7 of eliquis at 10mg BID -plan is for patient to go for IVC filter today #) Sepsis possibly 2/2 wound abscess or UTI patient no longer spiking fevers -sacral wound abcess growing VRE, proteus vulgaris, corynebacterium -patient growing yeast-like organism in urine- awaiting sensitivities -ID on board - patient on day 4 of daptomycin, and day 4 of zosyn -monitor for fevers #) DM -holding home anti-diabetics -ISS -BGMS ACHS #) Sacral Ulcers -seen by surgery; appreciate their recs -they recommended santyl and foam dressing -q2h turning; OOB -ID consulted- recs appreciated -c/w antibiotics #)HTN -resume home medications #)HLD -resume lipitor 20 daily F/E/N LR @100mls/hr replete electrolytes when necessary diabetic diet Problem List - Problems (1) Pulmonary embolism Code(s): I26.99 - OTHER PULMONARY EMBOLISM WITHOUT ACUTE COR PULMONALE (2) HTN (hypertension) Code(s): I10 - ESSENTIAL (PRIMARY) HYPERTENSION (3) Decubitus ulcer of sacral area Code(s): L89.159 - PRESSURE ULCER OF SACRAL REGION, UNSPECIFIED STAGE (4) DVT (deep venous thrombosis) Code(s): I82.409 - ACUTE EMBOLISM AND THOMBOS UNSP DEEP VN UNSP LOWER EXTREMITY Visit type - Emergency Visit Emergency Visit: Yes ED Registration Date: 09/28/18 Care time: The patient presented to the Emergency Department on the above date and was hospitalized for further evaluation of their emergent condition. - New Patient This patient is new to me today: No - Critical Care Critical Care patient: No
[2018-10-06] MEDS ORDERED: LIDOCAINE HCL 1%, 10 MG/ML (20ML VIAL) ONE (13:03)
[2018-10-06] MEDS ORDERED: HEPARIN NA (PORCINE) 5,000 UNITS/ML 1ML VIAL ONE (13:03)
[2018-10-06] MEDS: DAPTOMYCIN 300 MG in SODIUM CHLORIDE 50 ML IVPB SCH ×2 (13:08→15:09)
[2018-10-06] MEDS ORDERED: MIDAZOLAM HCL 2 MG/2 ML SINGLE DOSE VIAL ONE (13:11)
[2018-10-06] MEDS ORDERED: LIDOCAINE HCL 0.5%, 5 MG/ML (50mL SDVIAL) INF ONE (13:40)
--- NOTE | 2018-10-06 13:55 | OP ---
Operative Note - Note: Operative Date: 10/06/18 Pre-Operative Diagnosis: DVT, non-compliance to anticoagulation Operation: Insertion of IVC filter with venogram Post-Operative Diagnosis: Same as Pre-op Surgeon: Fredis Mary Anesthesia: Fractional Estimated Blood Loss (mls): 5 Operative Report Dictated: Yes
[2018-10-06] MEDS ORDERED: ONDANSETRON 4 MG/2 ML VIAL IVPUSH PRN (14:01)
[2018-10-06] MEDS ORDERED: ACETAMINOPHEN 1000 MG/100 ML VIAL (NON FORMULARY) IVPB ONE (14:02)
[2018-10-06] MEDS ORDERED: LACTATED RINGERS SOLUTION 1,000 ML IV SCH (14:15)
[2018-10-06] MEDS ORDERED: INSULIN (NOVOLOG) ASPART 100 UNITS/ML 10ML VIAL ONE ×2 (17:08→22:03)
--- NOTE | 2018-10-06 18:21 | PN ---
Teaching Attending Note Name of Resident: Bettie Marroquin ATTENDING PHYSICIAN STATEMENT I saw and evaluated the patient. I reviewed the resident's note and discussed the case with the resident. I agree with the resident's findings and plan as documented. SUBJECTIVE: Patient has no complaints. OBJECTIVE: Vital Signs Period Temp Pulse Resp BP Sys/Funes Pulse Ox Last 24 Hr 98 F-99.2 F 81-91 10-21 110-125/58-68 97-99 HEART: S1S2, RRR LUNGS: Clear ABDOMEN: Soft, non-tender, non-distended, normal BS EXTREMITIES: No edema Laboratory Results - last 24 hr 10/05/18 10/06/18 10/06/18 21:29 05:44 11:07 POC Glucometer 205 145 120 10/06/18 17:13 POC Glucometer 149 Current Medications Generic Name Dose Route Start Last Admin Trade Name Freq PRN Reason Stop Dose Admin Acetaminophen 650 mg 10/06/18 14:29 10/06/18 17:33 Tylenol - PO 650 mg Q4H PRN Administration PAIN LEVEL 6-10 Calcium Carbonate/Cholecalciferol 2 tab 10/07/18 10:00 Os-Willy 500+D - PO DAILY [facility] Collagenase 1 applic 10/07/18 10:00 Santyl - TP DAILY [facility] Protocol Duloxetine HCl 30 mg 10/07/18 10:00 Cymbalta - PO DAILY [facility] Fenofibric Acid 135 mg 10/07/18 10:00 Trilipix - PO DAILY [facility] Ferrous Sulfate 325 mg 10/07/18 10:00 Feosol - PO DAILY [facility] Lactated Ringer's 1,000 mls @ 75 mls/hr 10/06/18 14:15 10/06/18 15:46 Lactated Ringers Solution IV 75 mls/hr ASDIR [facility] Administration Daptomycin 300 mg/ Sodium 50 mls @ 50 mls/hr 10/07/18 14:00 Chloride IVPB DAILY@1400 [facility] Protocol Piperacillin Sod/Tazobactam 50 mls @ 100 mls/hr 10/06/18 18:00 10/06/18 17:14 Sod 3.375 gm/ Dextrose IVPB 100 mls/hr Q8H-IV [facility] Administration Protocol Insulin Aspart 1 vial 10/06/18 16:30 10/06/18 17:16 Novolog Vial Sliding Scale - SQ Not Given ACHS [facility] Protocol Magnesium Oxide 400 mg 10/07/18 10:00 Mag-Ox - PO DAILY [facility] Mesalamine 800 mg 10/06/18 17:30 10/06/18 17:14 Asacol Hd - PO 800 mg TIDCM [facility] Administration Multivitamins/Minerals/Vitamin C 1 tab 10/07/18 10:00 Tab-A-Vit - PO DAILY [facility] Ondansetron HCl 4 mg 10/06/18 14:01 Zofran Injection IVPUSH Q6H PRN NAUSEA AND/OR VOMITING Pantoprazole Sodium 40 mg 10/07/18 10:00 Protonix - PO DAILY [facility] ASSESSMENT AND PLAN: This is a 58 year old woman with a history of obesity, gastric bypass, type 2 DM , iron-deficiency anemia, gastric ulcers, DVTs, HTN, hyperlipidemia, chronic diarrhea, chronic back pain, opioid dependence, left humerus fracture who presented to the ED with left leg swelling and pain. 1. Bilateral pulmonary emboli, DVT of left leg - Was on Eliquis for previous DVTs - on hold for procedure - Plan for IVC filter today 2. Sepsis secondary to infected sacral pressure with VRE - Continue Zosyn, Daptomycin (day 4) - Wound care 3. Iron deficiency anemia - Hemoglobin is stable - Continue ferrous sulfate 4. HTN - BP ok without meds - Continue to monitor 5. Hyperlipidemia - Continue fenofibrate 6. Type 2 DM - Metformin, Januvia held - Continue Novolog sliding scale
[2018-10-07] MEDS ORDERED: PIPERACILLIN/TAZOBACTAM 3.375 GM VIAL IVPB ONE ×3 (01:42→17:19)
[2018-10-07] MEDS ORDERED: DEXTROSE 5%-WATER - 50 ML IVPB ONE ×3 (01:43→17:19)
[2018-10-07] MEDS: PIPERACILLIN/TAZOB 3.375 GM 3.375 GM in DEXTROSE 5%-WATER - 50 ML IVPB SCH ×3 (01:46→17:25)
[2018-10-07] MEDS: INSULIN SLIDING SCALE (NOVOLOG) 1 VIAL SQ SCH ×4 (06:02→21:51)
[2018-10-07 07:36] LABS: HEMATOCRIT 30.1 % (32.4-45.2); HEMOGLOBIN 9.6 GM/dL (10.7-15.3); MCH 25.7 pg (25.7-33.7); MCHC 31.8 g/dl (32.0-36.0); MEAN CELL VOLUME 80.9 fl (80-96); MEAN PLT VOLUME 8.7 fl (7.5-11.1); PLATELET COUNT 346 K/MM3 (134-434); RBC 3.72 M/mm3 (3.60-5.2); WHITE BLOOD COUNT 8.1 K/mm3 (4.0-10.0)
[2018-10-07] MEDS: ACETAMINOPHEN 325 MG TABLET (FP) PO PRN ×3 (08:24→19:46)
[2018-10-07] MEDS: MESALAMINE 800 MG TABLET.DR PO SCH ×3 (08:28→17:24)
[2018-10-07 08:36] LABS: ANION GAP 10 MMOL/L (8-16); BLOOD UREA NITROGEN 9 mg/dL (7-18); CALCIUM 7.9 mg/dL (8.5-10.1); CHLORIDE 106 mmol/L (98-107); CO2 24 mmol/L (21-32); CREATININE 0.5 mg/dL (0.55-1.3); GLUCOSE,RANDOM 135 mg/dL (74-106); POTASSIUM 4.3 mmol/L (3.5-5.1); SODIUM 139 mmol/L (136-145)
--- NOTE | 2018-10-07 09:15 | PN ---
Physical Exam: SUBJECTIVE: Patient seen and examined at bedside. no acute events overnight- patient had her IVC filter placed yesterday. She is feeling ok- she denies any CP/SOB/N/V fevers or chills. OBJECTIVE: Vital Signs Period Temp Pulse Resp BP Sys/Funes Pulse Ox Last 24 Hr 98.5 F-99.2 F 83-91 10-20 108-122/50-67 97-99 GENERAL: The patient is awake, alert, and fully oriented, in no acute distress. EYES: no scleral icterus NECK: no JVD, no lymphadenopathy LUNGS:CTA B/L; no rales, rhonchi or wheezing HEART: Regular rate and rhythm, S1, S2 without murmur, rub or gallop. ABDOMEN: Soft, nontender, nondistended, normoactive bowel sounds, no guarding, no rebound, no hepatosplenomegaly, no masses. EXTREMITIES: 2+ pulses, warm, well-perfused, no edema, no calf erythema or tenderness. . PSYCH: Normal mood, normal affect. SKIN: Warm, dry, normal turgor, no rashes or lesions noted Laboratory Results - last 24 hr 10/06/18 10/06/18 10/06/18 11:07 17:13 22:01 WBC RBC Hgb Hct MCV MCH MCHC RDW Plt Count MPV Sodium Potassium Chloride Carbon Dioxide Anion Gap BUN Creatinine Creat Clearance w eGFR POC Glucometer 120 149 232 Random Glucose Calcium 10/07/18 10/07/18 10/07/18 06:01 06:30 06:30 WBC 8.1 RBC 3.72 Hgb 9.6 L Hct 30.1 L MCV 80.9 MCH 25.7 MCHC 31.8 L RDW 18.0 H Plt Count 346 MPV 8.7 Sodium 139 Potassium 4.3 Chloride 106 Carbon Dioxide 24 Anion Gap 10 BUN 9 Creatinine 0.5 L Creat Clearance w eGFR > 60 POC Glucometer 140 Random Glucose 135 H Calcium 7.9 L Active Medications Generic Name Dose Route Start Last Admin Trade Name Freq PRN Reason Stop Dose Admin Acetaminophen 650 mg 10/06/18 14:29 10/07/18 08:24 Tylenol - PO 650 mg Q4H PRN Administration PAIN LEVEL 6-10 Calcium Carbonate/Cholecalciferol 2 tab 10/07/18 10:00 Os-Willy 500+D - PO DAILY [facility] Collagenase 1 applic 10/07/18 10:00 Santyl - TP DAILY [facility] Protocol Duloxetine HCl 30 mg 10/07/18 10:00 Cymbalta - PO DAILY [facility] Fenofibric Acid 135 mg 10/07/18 10:00 Trilipix - PO DAILY [facility] Ferrous Sulfate 325 mg 10/07/18 10:00 Feosol - PO DAILY [facility] Lactated Ringer's 1,000 mls @ 75 mls/hr 10/06/18 14:15 10/06/18 15:46 Lactated Ringers Solution IV 75 mls/hr ASDIR [facility] Administration Daptomycin 300 mg/ Sodium 50 mls @ 50 mls/hr 10/07/18 14:00 Chloride IVPB DAILY@1400 [facility] Protocol Piperacillin Sod/Tazobactam 50 mls @ 100 mls/hr 10/06/18 18:00 10/07/18 01:46 Sod 3.375 gm/ Dextrose IVPB 100 mls/hr Q8H-IV [facility] Administration Protocol Insulin Aspart 1 vial 10/06/18 16:30 10/07/18 06:02 Novolog Vial Sliding Scale - SQ Not Given ACHS [facility] Protocol Magnesium Oxide 400 mg 10/07/18 10:00 Mag-Ox - PO DAILY [facility] Mesalamine 800 mg 10/06/18 17:30 10/07/18 08:28 Asacol Hd - PO 800 mg TIDCM [facility] Administration Multivitamins/Minerals/Vitamin C 1 tab 10/07/18 10:00 Tab-A-Vit - PO DAILY [facility] Ondansetron HCl 4 mg 10/06/18 14:01 Zofran Injection IVPUSH Q6H PRN NAUSEA AND/OR VOMITING Pantoprazole Sodium 40 mg 10/07/18 10:00 Protonix - PO DAILY [facility] ASSESSMENT/PLAN: 58 y/o with PMH of DVTs, sigmoid microperforation, DM, anemia, HTN, presents with left lower extremity pain and swelling, sacral ulcers,c upon arrival now found to have right and left lower lobe segmental PEs and DVTs. #) Pulmonary Embolism -day 6/7 of eliquis at 10mg BID -patient had IVC filter placed yesterday -f/u with Dr. Mary regarding AC duration #) Sepsis possibly 2/2 wound abscess or UTI patient no longer spiking fevers -sacral wound abcess growing VRE, proteus vulgaris, corynebacterium -patient growing yeast-like organism in urine- awaiting sensitivities -ID on board -d/c dapto- still on zosyn -will start oral abx tomorrow -monitor for fevers #) DM -holding home anti-diabetics -ISS -BGMS ACHS #) Sacral Ulcers -seen by surgery; appreciate their recs -they recommended santyl and foam dressing -q2h turning; OOB -ID consulted- recs appreciated -c/w antibiotics #)HTN -resume home medications #)HLD -resume lipitor 20 daily F/E/N LR @100mls/hr replete electrolytes when necessary diabetic diet Problem List - Problems (1) Pulmonary embolism Code(s): I26.99 - OTHER PULMONARY EMBOLISM WITHOUT ACUTE COR PULMONALE (2) HTN (hypertension) Code(s): I10 - ESSENTIAL (PRIMARY) HYPERTENSION (3) Decubitus ulcer of sacral area Code(s): L89.159 - PRESSURE ULCER OF SACRAL REGION, UNSPECIFIED STAGE (4) DVT (deep venous thrombosis) Code(s): I82.409 - ACUTE EMBOLISM AND THOMBOS UNSP DEEP VN UNSP LOWER EXTREMITY Visit type - Emergency Visit Emergency Visit: Yes ED Registration Date: 09/28/18 Care time: The patient presented to the Emergency Department on the above date and was hospitalized for further evaluation of their emergent condition. - New Patient This patient is new to me today: No - Critical Care Critical Care patient: No
[2018-10-07] MEDS ORDERED: PT OWN MED DRAWER 7, Y5N ONE (09:18)
[2018-10-07] MEDS: FERROUS SO4 325 MG TABLET (FP) PO SCH (09:26)
[2018-10-07] MEDS: MAGNESIUM OXIDE 400 MG TABLET (FP) PO SCH (09:26)
[2018-10-07] MEDS: CALCIUM 500MG/VIT-D 200 UNITS COMBO TABLET (FP) PO SCH (09:26)
[2018-10-07] MEDS: DULoxetine HCL 30 MG CAPSULE.DR (FP) PO SCH (09:26)
[2018-10-07] MEDS: MULTIVITAMINS (DAILY MVI) TABLET (FP) PO SCH (09:27)
[2018-10-07] MEDS: FENOFIBRIC ACID 135 MG CAP PO SCH (09:27)
[2018-10-07] MEDS: PANTOPRAZOLE 40 MG TABLET (FP) PO SCH (09:27)
[2018-10-07] MEDS: COLLAGENASE CLOSTRIDIUM HIST. 30 GRAMS TUBE TP SCH (09:28)
[2018-10-07] MEDS ORDERED: INSULIN (NOVOLOG) ASPART 100 UNITS/ML 10ML VIAL ONE ×3 (10:49→21:07)
--- NOTE | 2018-10-07 11:40 | PN ---
Progress Note, Physician History of Present Illness: stable no new issues post ivc filter placement - Current Medication List Current Medications: Active Medications Acetaminophen (Tylenol -) 650 mg PO Q4H PRN PRN Reason: PAIN LEVEL 6-10 Last Admin: 10/07/18 08:24 Dose: 650 mg Calcium Carbonate/Cholecalciferol (Os-Willy 500+D -) 2 tab PO DAILY [facility] Last Admin: 10/07/18 09:26 Dose: 2 tab Collagenase (Santyl -) 1 applic TP DAILY [facility]; Protocol Last Admin: 10/07/18 09:28 Dose: 1 applic Duloxetine HCl (Cymbalta -) 30 mg PO DAILY [facility] Last Admin: 10/07/18 09:26 Dose: 30 mg Fenofibric Acid (Trilipix -) 135 mg PO DAILY [facility] Last Admin: 10/07/18 09:27 Dose: 135 mg Ferrous Sulfate (Feosol -) 325 mg PO DAILY [facility] Last Admin: 10/07/18 09:26 Dose: 325 mg Lactated Ringer's (Lactated Ringers Solution) 1,000 mls @ 75 mls/hr IV ASDIR [facility] Last Admin: 10/06/18 15:46 Dose: 75 mls/hr Piperacillin Sod/Tazobactam (Sod 3.375 gm/ Dextrose) 50 mls @ 100 mls/hr IVPB Q8H-IV [facility]; Protocol Last Admin: 10/07/18 10:23 Dose: 100 mls/hr Insulin Aspart (Novolog Vial Sliding Scale -) 1 vial SQ ACHS [facility]; Protocol Last Admin: 10/07/18 10:53 Dose: 4 units Magnesium Oxide (Mag-Ox -) 400 mg PO DAILY [facility] Last Admin: 10/07/18 09:26 Dose: 400 mg Mesalamine (Asacol Hd -) 800 mg PO TIDCM [facility] Last Admin: 10/07/18 08:28 Dose: 800 mg Multivitamins/Minerals/Vitamin C (Tab-A-Vit -) 1 tab PO DAILY [facility] Last Admin: 10/07/18 09:27 Dose: 1 tab Ondansetron HCl (Zofran Injection) 4 mg IVPUSH Q6H PRN PRN Reason: NAUSEA AND/OR VOMITING Pantoprazole Sodium (Protonix -) 40 mg PO DAILY [facility] Last Admin: 10/07/18 09:27 Dose: 40 mg - Objective Vital Signs: Vital Signs Temperature 99.1 F 10/07/18 09:32 Pulse Rate 100 H 10/07/18 09:32 Respiratory Rate 18 10/07/18 09:32 Blood Pressure 111/58 L 10/07/18 09:32 O2 Sat by Pulse Oximetry (%) 98 10/06/18 21:00 Constitutional: Yes: No Distress, Calm Cardiovascular: Yes: Regular Rate and Rhythm Respiratory: Yes: Regular, CTA Bilaterally Gastrointestinal: Yes: Normal Bowel Sounds, Soft Musculoskeletal: Yes: WNL Extremities: Yes: WNL Neurological: Yes: Alert, Oriented Labs: CBC, BMP 10/07/18 06:30 10/07/18 06:30 INR, PTT INR 1.31 (0.83-1.09) H 09/28/18 19:20 Assessment/Plan patient spiking fevers still could be due to the embolism,it seems patient has refused the ivc filter fevers could be due to pe but cannot r/o infection from the sacral as she has couple of openings patient was treated last time and she did not complete the treatment as she has been non compliant Problem List - Problems (1) Pulmonary embolism Code(s): I26.99 - OTHER PULMONARY EMBOLISM WITHOUT ACUTE COR PULMONALE (2) HTN (hypertension) Code(s): I10 - ESSENTIAL (PRIMARY) HYPERTENSION (3) Decubitus ulcer of sacral area Code(s): L89.159 - PRESSURE ULCER OF SACRAL REGION, UNSPECIFIED STAGE (4) DVT (deep venous thrombosis) Code(s): I82.409 - ACUTE EMBOLISM AND THOMBOS UNSP DEEP VN UNSP LOWER EXTREMITY 5 sacral ulcers 6 fevers plan continue abx now only on zosyn will see how patient does today will deescalte to oral abx tomorrow rest as per the team
--- NOTE | 2018-10-07 13:22 | PN ---
Teaching Attending Note Name of Resident: Bettie Marroquin ATTENDING PHYSICIAN STATEMENT I saw and evaluated the patient. I reviewed the resident's note and discussed the case with the resident. I agree with the resident's findings and plan as documented. SUBJECTIVE: No complaints. OBJECTIVE: Vital Signs Period Temp Pulse Resp BP Sys/Funes Pulse Ox Last 24 Hr 98.6 F-99.2 F 86-100 10-20 108-122/50-67 97-99 HEART: S1S2, RRR LUNGS: Clear ABDOMEN: Soft, non-tender, non-distended, normal BS EXTREMITIES: No edema Laboratory Results - last 24 hr 10/06/18 10/06/18 10/07/18 17:13 22:01 06:01 WBC RBC Hgb Hct MCV MCH MCHC RDW Plt Count MPV Sodium Potassium Chloride Carbon Dioxide Anion Gap BUN Creatinine Creat Clearance w eGFR POC Glucometer 149 232 140 Random Glucose Calcium 10/07/18 10/07/18 10/07/18 06:30 06:30 10:43 WBC 8.1 RBC 3.72 Hgb 9.6 L Hct 30.1 L MCV 80.9 MCH 25.7 MCHC 31.8 L RDW 18.0 H Plt Count 346 MPV 8.7 Sodium 139 Potassium 4.3 Chloride 106 Carbon Dioxide 24 Anion Gap 10 BUN 9 Creatinine 0.5 L Creat Clearance w eGFR > 60 POC Glucometer 247 Random Glucose 135 H Calcium 7.9 L Current Medications Generic Name Dose Route Start Last Admin Trade Name Freq PRN Reason Stop Dose Admin Acetaminophen 650 mg 10/06/18 14:29 10/07/18 12:47 Tylenol - PO 650 mg Q4H PRN Administration PAIN LEVEL 6-10 Calcium Carbonate/Cholecalciferol 2 tab 10/07/18 10:00 10/07/18 09:26 Os-Willy 500+D - PO 2 tab DAILY [facility] Administration Collagenase 1 applic 10/07/18 10:00 10/07/18 09:28 Santyl - TP 1 applic DAILY [facility] Administration Protocol Duloxetine HCl 30 mg 10/07/18 10:00 10/07/18 09:26 Cymbalta - PO 30 mg DAILY [facility] Administration Fenofibric Acid 135 mg 10/07/18 10:00 10/07/18 09:27 Trilipix - PO 135 mg DAILY [facility] Administration Ferrous Sulfate 325 mg 10/07/18 10:00 10/07/18 09:26 Feosol - PO 325 mg DAILY [facility] Administration Lactated Ringer's 1,000 mls @ 75 mls/hr 10/06/18 14:15 10/06/18 15:46 Lactated Ringers Solution IV 75 mls/hr ASDIR [facility] Administration Piperacillin Sod/Tazobactam 50 mls @ 100 mls/hr 10/06/18 18:00 10/07/18 10:23 Sod 3.375 gm/ Dextrose IVPB 100 mls/hr Q8H-IV [facility] Administration Protocol Insulin Aspart 1 vial 10/06/18 16:30 10/07/18 10:53 Novolog Vial Sliding Scale - SQ 4 units ACHS [facility] Administration Protocol Magnesium Oxide 400 mg 10/07/18 10:00 10/07/18 09:26 Mag-Ox - PO 400 mg DAILY [facility] Administration Mesalamine 800 mg 10/06/18 17:30 10/07/18 12:47 Asacol Hd - PO 800 mg TIDCM [facility] Administration Multivitamins/Minerals/Vitamin C 1 tab 10/07/18 10:00 10/07/18 09:27 Tab-A-Vit - PO 1 tab DAILY [facility] Administration Ondansetron HCl 4 mg 10/06/18 14:01 Zofran Injection IVPUSH Q6H PRN NAUSEA AND/OR VOMITING Pantoprazole Sodium 40 mg 10/07/18 10:00 10/07/18 09:27 Protonix - PO 40 mg DAILY [facility] Administration ASSESSMENT AND PLAN: This is a 58 year old woman with a history of obesity, gastric bypass, type 2 DM , iron-deficiency anemia, gastric ulcers, DVTs, HTN, hyperlipidemia, chronic diarrhea, chronic back pain, opioid dependence, left humerus fracture who presented to the ED with left leg swelling and pain. 1. Bilateral pulmonary emboli, DVT of left leg - Was on Eliquis for previous DVTs - was on hold for procedure - will resume - s/p IVC filter 10/06 2. Sepsis secondary to infected stage II pressure ulcers of sacrum and right buttock with VRE - Continue Zosyn, Daptomycin (day 5) - Wound care 3. Iron deficiency anemia - Hemoglobin is stable - Continue ferrous sulfate 4. HTN - BP ok without meds - Continue to monitor 5. Hyperlipidemia - Continue fenofibrate 6. Type 2 DM - Metformin, Januvia held - Continue Novolog sliding scale
[2018-10-07] MEDS ORDERED: DAPTOMYCIN 300 MG in SODIUM CHLORIDE 50 ML IVPB SCH (14:00)
[2018-10-07] MEDS: APIXABAN 5 MG TABLET PO SCH (21:51)
[2018-10-08] MEDS ORDERED: PIPERACILLIN/TAZOBACTAM 3.375 GM VIAL IVPB ONE ×3 (00:46→17:17)
[2018-10-08] MEDS ORDERED: DEXTROSE 5%-WATER - 50 ML IVPB ONE ×3 (00:47→17:17)
[2018-10-08] MEDS: ACETAMINOPHEN 325 MG TABLET (FP) PO PRN ×4 (02:42→19:08)
[2018-10-08] MEDS: PIPERACILLIN/TAZOB 3.375 GM 3.375 GM in DEXTROSE 5%-WATER - 50 ML IVPB SCH ×3 (02:42→19:02)
[2018-10-08] MEDS: INSULIN SLIDING SCALE (NOVOLOG) 1 VIAL SQ SCH ×4 (06:07→21:30)
[2018-10-08] MEDS ORDERED: INSULIN (NOVOLOG) ASPART 100 UNITS/ML 10ML VIAL ONE ×2 (06:18→11:15)
[2018-10-08 07:08] LABS: INR 1.44 (0.83-1.09)
[2018-10-08] MEDS: MESALAMINE 800 MG TABLET.DR PO SCH ×3 (08:45→16:53)
[2018-10-08] MEDS ORDERED: PT OWN MED DRAWER 7, Y5N ONE (10:47)
[2018-10-08] MEDS: FENOFIBRIC ACID 135 MG CAP PO SCH (10:59)
[2018-10-08] MEDS: CALCIUM 500MG/VIT-D 200 UNITS COMBO TABLET (FP) PO SCH (10:59)
[2018-10-08] MEDS: FERROUS SO4 325 MG TABLET (FP) PO SCH (10:59)
[2018-10-08] MEDS: MAGNESIUM OXIDE 400 MG TABLET (FP) PO SCH (10:59)
[2018-10-08] MEDS: DULoxetine HCL 30 MG CAPSULE.DR (FP) PO SCH (10:59)
[2018-10-08] MEDS: APIXABAN 5 MG TABLET PO SCH ×2 (10:59→21:30)
[2018-10-08] MEDS: PANTOPRAZOLE 40 MG TABLET (FP) PO SCH (11:00)
[2018-10-08] MEDS: MULTIVITAMINS (DAILY MVI) TABLET (FP) PO SCH (11:00)
[2018-10-08] MEDS: COLLAGENASE CLOSTRIDIUM HIST. 30 GRAMS TUBE TP SCH (11:01)
--- NOTE | 2018-10-08 12:49 | PN ---
Teaching Attending Note Name of Resident: Bettie Marroquin ATTENDING PHYSICIAN STATEMENT I saw and evaluated the patient. I reviewed the resident's note and discussed the case with the resident. I agree with the resident's findings and plan as documented. SUBJECTIVE: No complaints. OBJECTIVE: Vital Signs Period Temp Pulse Resp BP Sys/Funes Pulse Ox Last 24 Hr 98.6 F-99.0 F 88-91 20-20 117-125/65-66 98 HEART: S1S2, RRR LUNGS: Clear ABDOMEN: Soft, non-tender, non-distended, normal BS EXTREMITIES: No edema Laboratory Results - last 24 hr 10/07/18 10/07/18 10/08/18 16:23 21:49 05:32 PT with INR INR POC Glucometer 251 217 210 10/08/18 10/08/18 06:30 11:10 PT with INR 17.00 H INR 1.44 H POC Glucometer 223 Current Medications Generic Name Dose Route Start Last Admin Trade Name Freq PRN Reason Stop Dose Admin Acetaminophen 650 mg 10/06/18 14:29 10/08/18 11:55 Tylenol - PO 650 mg Q4H PRN Administration PAIN LEVEL 6-10 Apixaban 5 mg 10/07/18 22:00 10/08/18 10:59 Eliquis - PO 5 mg BID [facility] Administration Calcium Carbonate/Cholecalciferol 2 tab 10/07/18 10:00 10/08/18 10:59 Os-Willy 500+D - PO 2 tab DAILY [facility] Administration Collagenase 1 applic 10/07/18 10:00 10/08/18 11:01 Santyl - TP 1 applic DAILY [facility] Administration Protocol Duloxetine HCl 30 mg 10/07/18 10:00 10/08/18 10:59 Cymbalta - PO 30 mg DAILY [facility] Administration Fenofibric Acid 135 mg 10/07/18 10:00 10/08/18 10:59 Trilipix - PO 135 mg DAILY [facility] Administration Ferrous Sulfate 325 mg 10/07/18 10:00 10/08/18 10:59 Feosol - PO 325 mg DAILY [facility] Administration Piperacillin Sod/Tazobactam 50 mls @ 100 mls/hr 10/06/18 18:00 10/08/18 10:58 Sod 3.375 gm/ Dextrose IVPB 100 mls/hr Q8H-IV [facility] Administration Protocol Insulin Aspart 1 vial 10/06/18 16:30 10/08/18 11:46 Novolog Vial Sliding Scale - SQ 4 units ACHS [facility] Administration Protocol Magnesium Oxide 400 mg 10/07/18 10:00 10/08/18 10:59 Mag-Ox - PO 400 mg DAILY [facility] Administration Mesalamine 800 mg 10/06/18 17:30 10/08/18 11:46 Asacol Hd - PO 800 mg TIDCM [facility] Administration Multivitamins/Minerals/Vitamin C 1 tab 10/07/18 10:00 10/08/18 11:00 Tab-A-Vit - PO 1 tab DAILY [facility] Administration Ondansetron HCl 4 mg 10/06/18 14:01 Zofran Injection IVPUSH Q6H PRN NAUSEA AND/OR VOMITING Pantoprazole Sodium 40 mg 10/07/18 10:00 10/08/18 11:00 Protonix - PO 40 mg DAILY [facility] Administration ASSESSMENT AND PLAN: This is a 58 year old woman with a history of obesity, gastric bypass, type 2 DM , iron-deficiency anemia, gastric ulcers, DVTs, HTN, hyperlipidemia, chronic diarrhea, chronic back pain, opioid dependence, left humerus fracture who presented to the ED with left leg swelling and pain. 1. Bilateral pulmonary emboli, DVT of left leg, history of DVTs - Continue Eliquis - s/p IVC filter 10/06 2. Sepsis secondary to infected stage II pressure ulcers of sacrum and right buttock with VRE - On Zosyn, Daptomycin (day 6) - Wound care 3. Iron deficiency anemia - Hemoglobin is stable - Continue ferrous sulfate 4. HTN - BP ok without meds - Continue to monitor 5. Hyperlipidemia - Continue fenofibrate 6. Type 2 DM - Metformin, Januvia held - Continue Novolog sliding scale 7. Disposition - Ok for discharge once IV antibiotics are complete
--- NOTE | 2018-10-08 15:18 | PN ---
Progress Note, Physician History of Present Illness: stable doing well no issues post op doing well - Current Medication List Current Medications: Active Medications Acetaminophen (Tylenol -) 650 mg PO Q4H PRN PRN Reason: PAIN LEVEL 6-10 Last Admin: 10/08/18 11:55 Dose: 650 mg Apixaban (Eliquis -) 5 mg PO BID REPLACED BY [facility] Last Admin: 10/08/18 10:59 Dose: 5 mg Calcium Carbonate/Cholecalciferol (Os-Willy 500+D -) 2 tab PO DAILY [facility] Last Admin: 10/08/18 10:59 Dose: 2 tab Collagenase (Santyl -) 1 applic TP DAILY [facility]; Protocol Last Admin: 10/08/18 11:01 Dose: 1 applic Duloxetine HCl (Cymbalta -) 30 mg PO DAILY [facility] Last Admin: 10/08/18 10:59 Dose: 30 mg Fenofibric Acid (Trilipix -) 135 mg PO DAILY [facility] Last Admin: 10/08/18 10:59 Dose: 135 mg Ferrous Sulfate (Feosol -) 325 mg PO DAILY [facility] Last Admin: 10/08/18 10:59 Dose: 325 mg Piperacillin Sod/Tazobactam (Sod 3.375 gm/ Dextrose) 50 mls @ 100 mls/hr IVPB Q8H-IV [facility]; Protocol Last Admin: 10/08/18 10:58 Dose: 100 mls/hr Insulin Aspart (Novolog Vial Sliding Scale -) 1 vial SQ ACHS [facility]; Protocol Last Admin: 10/08/18 11:46 Dose: 4 units Magnesium Oxide (Mag-Ox -) 400 mg PO DAILY [facility] Last Admin: 10/08/18 10:59 Dose: 400 mg Mesalamine (Asacol Hd -) 800 mg PO TIDCM [facility]PLACED BY [facility] Last Admin: 10/08/18 11:46 Dose: 800 mg Multivitamins/Minerals/Vitamin C (Tab-A-Vit -) 1 tab PO DAILY [facility] Last Admin: 10/08/18 11:00 Dose: 1 tab Ondansetron HCl (Zofran Injection) 4 mg IVPUSH Q6H PRN PRN Reason: NAUSEA AND/OR VOMITING Pantoprazole Sodium (Protonix -) 40 mg PO DAILY [facility] Last Admin: 10/08/18 11:00 Dose: 40 mg - Objective Vital Signs: Vital Signs Temperature 99.1 F 10/08/18 13:58 Pulse Rate 85 10/08/18 13:58 Respiratory Rate 20 10/08/18 05:43 Blood Pressure 116/56 L 10/08/18 13:58 O2 Sat by Pulse Oximetry (%) 98 10/07/18 21:00 Constitutional: Yes: No Distress, Calm Cardiovascular: Yes: Regular Rate and Rhythm Respiratory: Yes: Regular, CTA Bilaterally Gastrointestinal: Yes: Normal Bowel Sounds, Soft Musculoskeletal: Yes: WNL Extremities: Yes: WNL Wound/Incision: Yes: Clean/Dry Neurological: Yes: Alert, Oriented Psychiatric: Yes: Alert, Oriented Labs: CBC, BMP 10/07/18 06:30 10/07/18 06:30 INR, PTT INR 1.44 (0.83-1.09) H 10/08/18 06:30 Assessment/Plan Problem List - Problems (1) Pulmonary embolism Code(s): I26.99 - OTHER PULMONARY EMBOLISM WITHOUT ACUTE COR PULMONALE (2) HTN (hypertension) Code(s): I10 - ESSENTIAL (PRIMARY) HYPERTENSION (3) Decubitus ulcer of sacral area Code(s): L89.159 - PRESSURE ULCER OF SACRAL REGION, UNSPECIFIED STAGE (4) DVT (deep venous thrombosis) Code(s): I82.409 - ACUTE EMBOLISM AND THOMBOS UNSP DEEP VN UNSP LOWER EXTREMITY 5 sacral ulcers 6 fevers plan continue current mgmt can switch to oral levaquin 750 mg po daily for another 7 days also give diflucan for 7 more days wound care rest as per the team
[2018-10-09] MEDS: ACETAMINOPHEN 325 MG TABLET (FP) PO PRN ×2 (00:02→06:26)
[2018-10-09] MEDS ORDERED: PIPERACILLIN/TAZOBACTAM 3.375 GM VIAL IVPB ONE (01:48)
[2018-10-09] MEDS: PIPERACILLIN/TAZOB 3.375 GM 3.375 GM in DEXTROSE 5%-WATER - 50 ML IVPB SCH ×2 (02:09→09:04)
[2018-10-09] MEDS: INSULIN SLIDING SCALE (NOVOLOG) 1 VIAL SQ SCH (06:25)
[2018-10-09] MEDS ORDERED: PT OWN MED DRAWER 7, Y5N ONE (08:59)
[2018-10-09] MEDS: DULoxetine HCL 30 MG CAPSULE.DR (FP) PO SCH (09:02)
[2018-10-09] MEDS: PANTOPRAZOLE 40 MG TABLET (FP) PO SCH (09:02)
[2018-10-09] MEDS: FERROUS SO4 325 MG TABLET (FP) PO SCH (09:02)
[2018-10-09] MEDS: MAGNESIUM OXIDE 400 MG TABLET (FP) PO SCH (09:02)
[2018-10-09] MEDS: MESALAMINE 800 MG TABLET.DR PO SCH (09:02)
[2018-10-09] MEDS: APIXABAN 5 MG TABLET PO SCH (09:02)
[2018-10-09] MEDS: FENOFIBRIC ACID 135 MG CAP PO SCH (09:03)
[2018-10-09] MEDS: MULTIVITAMINS (DAILY MVI) TABLET (FP) PO SCH (09:03)
[2018-10-09] MEDS: CALCIUM 500MG/VIT-D 200 UNITS COMBO TABLET (FP) PO SCH (09:03)
[2018-10-09] MEDS: COLLAGENASE CLOSTRIDIUM HIST. 30 GRAMS TUBE TP SCH (09:04)
[2018-10-09 09:12] VITALS: BP 120/66; PULSE 90; TEMP 99
--- NOTE | 2018-10-15 13:53 | OP ---
DATE OF OPERATION: 10/06/2018 PREOPERATIVE DIAGNOSIS: DVT and noncompliance to taking anticoagulation. PROCEDURE: Insertion of inferior vena cava filter with vena cavagram. SURGEON: Fredis Owusu DO ANESTHESIA: Fractional. BLOOD LOSS: 10 mL. INDICATION FOR PROCEDURE: The patient is a 58-year-old female that comes in with history of DVT and noncompliance to taking anticoagulation. The patient does not take the anticoagulation that is prescribed to her and it is very concerning that the DVT will start to propagate and lead to a PE. Due to her noncompliance of taking anticoagulation, she is a candidate for an IVC filter. DESCRIPTION OF PROCEDURE: Patient was consented for the procedure, understanding all risks, benefits and alternatives, then taken to the operating room. Once in the operating room, laid on the table in a supine manner. The area of the right and left groin was prepped and draped in a sterile surgical manner. We then went ahead and punctured the right common femoral vein using our Micropuncture needle and a Micropuncture wire was inserted. Micropuncture sheath was inserted. We then placed a 0.035 floppy guide wire up to the IVC under fluoroscopy. We then positioned the C-arm so that we could see the last rib. We then placed our IVC filter sheath up to L3. We then shot a vena cavagram via hand injection showing that the bilateral renal veins came off at L1 and those were marked on our screen. We then went ahead and loaded the filter into the sheath and the filter was deployed between L2 and L3. Completion vena cavagram showed that the filter was place. There was no migration of the filter. There was no extravasation of contrast and bilateral renal veins were patent. We then removed the sheath. Pressure was held over the right groin for 5 minutes. After there was no bleeding, areas were then dried and Dermabond was placed. Patient tolerated the procedure. No complications. Patient transferred to PACU in stable condition. FREDIS OWUSU DO BREWING DIRECTOR/[id number]
== END 2018-10-09 11:48 | disposition home or self-care (01) | DRG 134 ==
LOC: JER 14:56 → JERBED 22:09 → UNDOADMIN 09-29 02:03 → JERBED 09-29 02:03 → J5S 09-29 19:54 → J6S 10-05 14:01
PROVIDERS: ADMIT Internal Medicine; ATTEND Internal Medicine
PROC: B50CYZZ Plain Radiography of Left Lower Extremity Veins using Other Contrast (ICD-10-PCS; 2018-10-06)
PROC: 06H03DZ Insertion of Intraluminal Device into Inferior Vena Cava, Percutaneous Approach (ICD-10-PCS; principal; 2018-10-06 12:30)
DX: I26.99 Other pulmonary embolism without acute cor pulmonale (principal); L89.152 Pressure ulcer of sacral region, stage 2; L89.312 Pressure ulcer of right buttock, stage 2; F11.20 Opioid dependence, uncomplicated; N39.0 Urinary tract infection, site not specified; I82.412 Acute embolism and thrombosis of left femoral vein; I82.432 Acute embolism and thrombosis of left popliteal vein; I10 Essential (primary) hypertension; E11.9 Type 2 diabetes mellitus without complications; F03.90 Unspecified dementia, unspecified severity, without behavioral disturbance, psychotic disturbance, mood disturbance, and anxiety; Z86.718 Personal history of other venous thrombosis and embolism; Z79.01 Long term (current) use of anticoagulants; K25.9 Gastric ulcer, unspecified as acute or chronic, without hemorrhage or perforation; E78.5 Hyperlipidemia, unspecified; G89.29 Other chronic pain; R00.0 Tachycardia, unspecified; Z79.4 Long term (current) use of insulin; D50.9 Iron deficiency anemia, unspecified
CPT/HCPCS: 36415; 71045-TC-FY; 71275-TC; 74176-TC; 76000-TC-FY; 80048; 80053; 80307; 81003; 81015; 82272; 82550; 82803; 82962; 83036; 83605; 84484; 85025; 85027; 85610; 85730; 86850; 86870; 86900; 86901; 86902; 87040; 87070; 87077; 87086; 87186; 87205; 87804; 90688; 93005; 93010; 93306-TC; 93926-TC; 93971-TC; 94760; 97116-GP; 97161-GP; 99285-25; G0008; J0131; J0878; J1644; J7030

== ENCOUNTER 2019-01-22 12:42 | Inpatient (IN) | payer OTHER ==
--- NOTE | 2019-01-22 12:59 | PDOC ---
History of Present Illness - General Chief Complaint: Blood Sugar Problem Stated Complaint: HIGH BLOOD SUGAR Time Seen by Provider: 01/22/19 12:58 - History of Present Illness Initial Comments: 58yo F with PMH of multiple DVT/PE s/p IVC filter placed in August 2018, HTN, DM, anemia, opioid dependence presenting with back pain and hyperglycemia. Patient was a difficult historian. She reports that she fell several weeks ago and has had pain in her mid-back since then. She took tylenol yesterday which improved her pain. Patient also takes percocet but did not take any today. Denies the use of any substances. Patient reports that EMS noted her glucose to be high at 529. When asked why she called the ambulance, she said "because I'm really stubborn." Back pain without red flag symptoms: negative for saddle anesthesia, urinary/stool incontinence, pain shooting down legs. No fever, chills, or night sweats. Denies chest pain, shortness of breath, abdominal pain , nausea, or vomiting. Past History - Past Medical History Allergies/Adverse Reactions: Allergies Allergy/AdvReac Type Severity Reaction Status Date / Time No Known Allergies Allergy Verified 09/06/18 15:25 Home Medications: Ambulatory Orders Fenofibrate Nanocrystallized [Tricor] 145 mg PO DAILY 07/14/14 Insulin Lispro [Humalog] 5 unit SQ AC 07/14/14 Multivitamins [Multivit ([facility] Formul[facility])] 1 tab PO DAILY 07/14/14 Duloxetine HCl [Cymbalta] 30 mg PO DAILY 06/25/18 Ferrous Sulfate [Feosol] 325 mg PO DAILY #30 ud 07/15/18 Mesalamine [Asacol HD -] 800 mg PO TID #60 tablet. 07/15/18 Apixaban [Eliquis] 5 mg PO BID #60 tablet 08/06/18 Lisinopril 2.5 mg PO DAILY #30 tablet 08/06/18 Pravastatin Sodium [Pravachol -] 80 mg PO HS 09/07/18 Sitagliptin Phosphate [Januvia] 100 mg PO DAILY 09/07/18 metFORMIN HCL [Metformin HCl] 850 mg PO BID 09/07/18 Calcium 500Mg/Vit-D 200 Units [Os-Willy 500+D -] 2 tab PO DAILY #30 tab 09/16/18 Magnesium Oxide 500 mg PO DAILY #7 tablet 09/16/18 Pantoprazole Sodium [Protonix -] 40 mg PO DAILY #30 tablet.ec 09/16/18 Apixaban [Eliquis -] 5 mg PO BID 30 Days #60 tablet 10/08/18 Collagenase Clostridium Hist. [Santyl -] 1 applic TP DAILY 30 Days #2 tube 10/08 Fluconazole [Diflucan -] 100 mg PO DAILY #7 tablet 10/08/18 Levofloxacin [Levaquin] 750 mg PO DAILY 7 Days #7 tablet 10/08/18 Anemia: Yes Asthma: No Cancer: No Cardiac Disorders: No CVA: No COPD: No CHF: No Dementia: Yes Diabetes: Yes (iddm) GI Disorders: Yes (GERD) Disorders: No HTN: Yes Hypercholesterolemia: Yes Liver Disease: No Seizures: No Thyroid Disease: No - Surgical History Abdominal Surgery: No Appendectomy: No Cardiac Surgery: No Cholecystectomy: Yes Gastric Stapling: No (BYPASS) Lung Surgery: No Neurologic Surgery: No Orthopedic Surgery: No - Immunization History Immunization Up to Date: Yes - Suicide/Smoking/Psychosocial Hx Smoking Status: No Smoking History: Never smoked Have you smoked in the past 12 months: No Number of Cigarettes Smoked Daily: 0 Hx Alcohol Use: No Drug/Substance Use Hx: Yes Substance Use Type: Opiates Hx Substance Use Treatment: No Review of Systems - Review of Systems Comments:: Constitutional: no fever, no chills HEENT: no throat pain, no dysphagia Cardiovascular: no chest pain, no palpitations Respiratory: no cough, no shortness of breath Gastrointestinal: no abdominal pain, no nausea Genitourinary: no dysuria, no frequency Musculoskeletal: +back pain, no arthralgia Skin: no rash, no itching Neurologic: no headache, no dizziness *Physical Exam - Physical Exam Comments: General: Awake, alert, and fully oriented, in no acute distress Head: No signs of trauma Eyes: EOMI, sclera anicteric ENT: Dry mucus membranes Neck: Normal ROM, supple Lungs: Lungs clear, Normal breath sounds Cardio: Regular rhythm, S1 and S2 present Abdomen: Soft, nontender. No guarding, no rebound, no masses Extremities: Normal range of motion, Distal pulses present SKIN: Warm, Dry, normal turgor Neurologic: Cranial nerves II through XII grossly intact. Normal patellar reflex , speech, sensation, strength, coordination Back: Tender to palpation in thoracic area, midline, no step-offs/deformities/ fluctuance; no overlying wound or lesion; negative straight leg test bilaterally ED Treatment Course - LABORATORY CBC & Chemistry Diagram: 01/22/19 14:30 01/22/19 14:30 Medical Decision Making - Medical Decision Making 58yo F with PMH of multiple DVT/PE s/p IVC filter placed in August 2018, HTN, DM, anemia, opioid dependence presenting with back pain and hyperglycemia. DDX including but not limited to DKA/HHS, substance use, mechanical back pain, PNA, epidural abscess Back pain without red flag symptoms: negative for saddle anesthesia, urinary/ stool incontinence, pain shooting down legs 01/22/19 13:54 Patient pulled out her IV 01/22/19 14:57 hgb=6.5, 2 units PRBCs ordered Plan to admit for transfusion Patient denies melena, BRBPR, bleeding, easy bruising, or history of bleeding disorder 01/22/19 16:11 Consent for blood obtained Another IV started. Patient instructed not to pull out this IV. Patient asking for dinner tray multiple times. 01/22/19 16:36 Discussed case with inpatient team who accepted team for admission under Dr. Lopez 01/22/19 18:32 *DC/Admit/Observation/Transfer Diagnosis at time of Disposition: Anemia - Discharge Dispostion Condition at time of disposition: Guarded Decision to Admit order: Yes - Referrals - Patient Instructions - Post Discharge Activity
[2019-01-22 13:01] VITALS: BMI 30.1
[2019-01-22] MEDS ORDERED: SODIUM CHLORIDE 1,000 ML IV STA (13:17)
[2019-01-22] MEDS ORDERED: ACETAMINOPHEN 1000 MG/100 ML VIAL (NON FORMULARY) IVPB ONE (13:19)
[2019-01-22 14:48] LABS: BASO % 0.6 % (0-2.0); EOS % 0.7 % (0-4.5); HEMATOCRIT 22.5 % (32.4-45.2); MCH 20.6 pg (25.7-33.7); MCHC 29.2 g/dl (32.0-36.0); MEAN CELL VOLUME 70.6 fl (80-96); MEAN PLT VOLUME 8.6 fl (7.5-11.1); MONO % 5.6 % (3.8-10.2); NEUT % 76.1 % (42.8-82.8); PLATELET COUNT 398 K/MM3 (134-434); RBC 3.18 M/mm3 (3.60-5.2); RDW 16.9 % (11.6-15.6); WHITE BLOOD COUNT 8.7 K/mm3 (4.0-10.0)
[2019-01-22 15:06] LABS: HEMOGLOBIN 6.5 GM/dL (10.7-15.3)
[2019-01-22 15:07] LABS: ACETONE SERUM NEGATIVE (NEGATIVE)
[2019-01-22 15:10] LABS: ALBUMIN 3.7 g/dl (3.4-5.0); ALK PHOS 37 U/L (45-117); ANION GAP 9 MMOL/L (8-16); BILIRUBIN,TOTAL 0.2 mg/dL (0.2-1); BLOOD UREA NITROGEN 39 mg/dL (7-18); CHLORIDE 103 mmol/L (98-107); CO2 22 mmol/L (21-32); CREATININE 1.3 mg/dL (0.55-1.3); SGOT/AST 24 U/L (15-37); SGPT/ALT 20 U/L (13-61); SODIUM 134 mmol/L (136-145); TOT PROT 6.2 g/dl (6.4-8.2)
[2019-01-22 15:12] LABS: GLUCOSE,RANDOM 380 mg/dL (74-106)
--- NOTE | 2019-01-22 16:32 | PDOC ---
Attending Attestation - Resident Resident Name: Dagmar Rondon - ED Attending Attestation I have performed the following: I have examined & evaluated the patient, The case was reviewed & discussed with the resident, I agree w/resident's findings & plan, Exceptions are as noted - HPI HPI: 01/22/19 17:07 The patient is a 58 year old female, with a significant PMH of HTN, DM, anemia, DVT/PE, opioid dependence, who presents to the emergency department complaining of mid-back pain s/p fall a couple of weeks ago. Patient is a poor historian. Patient states that since her fall she has been experiencing back pain and has taken tylenol which she has experienced relief with. Patient also notes she has percocet, but has not taken it recently. She also reports that EMS got a blood sugar level of 529. Patient denies any knowledge of anemia, dark or bloody stools. REports generalized weakness. The patient denies chest pain, shortness of breath, headache and dizziness. Denies fever, chills, nausea, vomit, diarrhea and constipation. Denies dysuria, frequency, urgency and hematuria. Allergies: NKA Past surgical history: Gastric bypass Social history: None reported PCP: Dr. Bazan - Physicial Exam PE: 01/22/19 17:18 agree with resident exam - Medical Decision Making 01/22/19 17:18 58yo F hx MMP including chronic back pain, poorly controlled DM presents to the ED with generalized weakness, back pain, and elevated FS. Pt found to be hyperglycemic w/o anion gap and anemic to 6.5. Stool occult+, will transfuse 2 unit and admit With regards to back pain, CXR has been orderd. Pt has no midline ttp, is neuro intact with no stool/urine incontinence or retention. Currently declines medications for pain control. <Festus Munoz - Last Filed: 01/22/19 17:34> Heart Score/ECG Review #1 01/22/19 17:33 Twelve-lead EKG was performed and reviewed by me. Sinus rhythm, rate 76. Normal axis. No ST elevations or T-wave inversions. <Festus Munoz - Last Filed: 01/22/19 17:34> Attestations - Attestations 01/22/19 16:42 Documentation prepared by Britta Granados, acting as medical office receptionist assistant for Festus Munoz MD. <Britta Granados - Last Filed: 01/22/19 16:42>
--- NOTE | 2019-01-22 19:17 | HP ---
CHIEF COMPLAINT: back pain PCP: Dr. 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 She reports a mechanical fall 2-3 weeks ago in her living room and fell on her back after slipping on her rug and denies any LOC or head trauma. She reports falling again yesterday due to the rug and re-hurting her back and again denies LOC or head trauma. She reports taking 20mg of oxycodone yesterday for the back pain which she got from her neighbor. She has not been compliant with her diabetes medications over the past week but she reports taking her eliquis as prescribed. She also reports tingling in her legs over the last week as well but no sharp or electric pains or change in bowel or urinary habits. She does report dark stools but has noticed them since taking iron and no change in color otherwise is noted. She denies bright red blood in stool, hematuria, CP, SOB, cough, N/V/F/C, abd pain, new joint pains, headache, change in vision. She has had some fatigue over the last few weeks. 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 Gastric bypass Social History: Smoking: denies Alcohol: denies Drugs: oxycodone Family History: n-c Allergies No Known Allergies Allergy (Verified 09/06/18 15:25) HOME MEDICATIONS: Home Medications Medication Instructions Recorded Fenofibrate Nanocrystallized 145 mg PO DAILY 07/14/14 [Tricor] Insulin Lispro [Humalog] 5 unit SQ AC 07/14/14 Multivitamins [Multivit ([facility] 1 tab PO DAILY 07/14/14 Formulary)] Duloxetine HCl [Cymbalta] 30 mg PO DAILY 06/25/18 Ferrous Sulfate [Feosol] 325 mg PO DAILY #30 ud 07/15/18 Mesalamine [Asacol HD -] 800 mg PO TID #60 tablet. 07/15/18 Apixaban [Eliquis] 5 mg PO BID #60 tablet 08/06/18 Lisinopril 2.5 mg PO DAILY #30 tablet 08/06/18 Pravastatin Sodium [Pravachol -] 80 mg PO HS 09/07/18 Sitagliptin Phosphate [Januvia] 100 mg PO DAILY 09/07/18 metFORMIN HCL [Metformin HCl] 850 mg PO BID 09/07/18 Calcium 500Mg/Vit-D 200 Units 2 tab PO DAILY #30 tab 09/16/18 [Os-Willy 500+D -] Magnesium Oxide 500 mg PO DAILY #7 tablet 09/16/18 Pantoprazole Sodium [Protonix -] 40 mg PO DAILY #30 tablet.ec 09/16/18 Apixaban [Eliquis -] 5 mg PO BID 30 Days #60 tablet 10/08/18 Collagenase Clostridium Hist. 1 applic TP DAILY 30 Days #2 tube 10/08/18 [Santyl -] Fluconazole [Diflucan -] 100 mg PO DAILY #7 tablet 10/08/18 Levofloxacin [Levaquin] 750 mg PO DAILY 7 Days #7 tablet 10/08/18 REVIEW OF SYSTEMS CONSTITUTIONAL: +generalized weakness Absent: fever, chills HEENT: Absent: visual changes CARDIOVASCULAR: Absent: chest pain, syncope, palpitations, lightheadedness, peripheral edema RESPIRATORY: Absent: cough, shortness of breath GASTROINTESTINAL: Absent: abdominal pain, abdominal distension, nausea, vomiting, melena, hematochezia GENITOURINARY: Absent: dysuria, hematuria MUSCULOSKELETAL: +back pain NEUROLOGIC: Absent: headache, dizziness, mental status changes, bladder or bowel incontinence PHYSICAL EXAMINATION Vital Signs - 24 hr 01/22/19 01/22/19 12:45 18:41 Temperature 99.2 F 98.8 F Pulse Rate 75 Pulse Rate [ 108 H Right] Respiratory 12 16 Rate Blood Pressure 169/80 Blood Pressure 101/51 L [Left Arm] O2 Sat by Pulse 100 96 Oximetry (%) GENERAL: Awake, alert, and fully oriented, in no acute distress. HEAD: Normal with no signs of trauma. EYES: extraocular movements intact, sclera anicteric, conjunctiva clear. EARS, NOSE, THROAT: Ears normal, nares patent, Moist mucous membranes. NECK: Normal range of motion, supple LUNGS: Breath sounds equal, clear to auscultation bilaterally. No wheezes, and no crackles. No accessory muscle use. HEART: Regular rate and rhythm, normal S1 and S2 without murmur ABDOMEN: Soft, nontender, not distended, normoactive bowel sounds. MUSCULOSKELETAL: No joint tenderness. +MILD tenderness in mid back/spine. LOWER EXTREMITIES: warm, well-perfused. No calf tenderness. No peripheral edema. NEUROLOGICAL: Cranial nerves II-XII grossly intact. Normal speech. Gait not observed. PSYCHIATRIC: Cooperative. Good eye contact. Appropriate mood and affect. SKIN: Warm, dry Laboratory Results - last 24 hr 01/22/19 01/22/19 01/22/19 14:21 14:30 14:30 WBC 8.7 RBC 3.18 L Hgb 6.5 L* Hct 22.5 L D MCV 70.6 L MCH 20.6 L D MCHC 29.2 L RDW 16.9 H Plt Count 398 MPV 8.6 Absolute Neuts (auto) 6.7 Neutrophils % 76.1 D Lymphocytes % 17.0 Monocytes % 5.6 Eosinophils % 0.7 D Basophils % 0.6 Nucleated RBC % 0 Hypochromia 3+ Sodium 134 L Potassium 5.0 Chloride 103 Carbon Dioxide 22 Anion Gap 9 BUN 39 H Creatinine 1.3 Creat Clearance w eGFR 41.92 POC Glucometer 390 Random Glucose 380 H* Calcium 9.0 Total Bilirubin 0.2 AST 24 ALT 20 Alkaline Phosphatase 37 L Total Protein 6.2 L Albumin 3.7 Stool Occult Blood Salicylates Acetaminophen Alcohol, Quantitative Acetone, Qual Negative L Crossmatch 01/22/19 01/22/19 01/22/19 14:30 16:22 17:10 WBC RBC Hgb Hct MCV MCH MCHC RDW Plt Count MPV Absolute Neuts (auto) Neutrophils % Lymphocytes % Monocytes % Eosinophils % Basophils % Nucleated RBC % Hypochromia Sodium Potassium Chloride Carbon Dioxide Anion Gap BUN Creatinine Creat Clearance w eGFR POC Glucometer Random Glucose Calcium Total Bilirubin AST ALT Alkaline Phosphatase Total Protein Albumin Stool Occult Blood Positive Salicylates < 1.7 L Acetaminophen < 2.0 L Alcohol, Quantitative < 3.0 Acetone, Qual Crossmatch See Detail EKG: Sinus rhythm @ 76 bpm. QTc [address] segment elevations or depressions noted. No TWI noted. 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 Found to have Hgb of 6.5 and +FOBT in ER. -Symptomatic anemia -FOBT+, Hgb 6.5, 2 units PRBC ordered in ER -Monitor H/H. CBC for 1am placed as well. Monitor HR for possible UGIB. -GI consult for possible colonoscopy/EGD -Goal Hgb>7 -Will give IV protonix 80 mg now and 40 mg bid starting tomorrow in case of UGIB -Sigmoidoscopy done in 08/18 showed non-bleeding ulcer in sigmoid colon. -Was tolerating diet well in ER. If pt becomes unstable, low BP, high HR, consider making NPO. -Back pain s/p mechanical fall -F/u Xrays, ordered in ER -Tylenol for pain -Uncontrolled DM -ISS, BGMs ACHS -Check A1C -parasthesias in LE likely secondary to noncompliance and high sugars. F/u back XR as well. -HLD -c/w pravastatin -Hx of DVT/PE -hold AC with low Hgb and positive FOBT -HTN -c/w lisinopril -DVT ppx -hold AC with FOBT+ and low Hgb -SCDs -FEN -2 units PRBC ordered, no fluids at this time -Monitor electrolytes. Corrected sodium for hyperglycemia is 138. -Diabetic diet -Dispo: M/S Visit type - Emergency Visit Emergency Visit: Yes ED Registration Date: 01/22/19 Care time: The patient presented to the Emergency Department on the above date and was hospitalized for further evaluation of their emergent condition. - New Patient This patient is new to me today: Yes Date on this admission: 01/22/19 - Critical Care Critical Care patient: No
--- NOTE | 2019-01-22 19:38 | PN ---
Teaching Attending Note Name of Resident: Willie Mary ATTENDING PHYSICIAN STATEMENT I saw and evaluated the patient. I reviewed the resident's note and discussed the case with the resident. I agree with the resident's findings and plan as documented. SUBJECTIVE: Seen and examined; please see resident note for further historical information. She has a complex history of obesity, s/p gastric bypass, multiple DVTs/ bilateral PE on eliquis s/p IVC filter (10/2018), gastric ulcers, colonic ulceration on recent c-scope with Dr. Sanon, DM (noncompliance with meds), Iron Deficiency Anemia (transfused in the past and has 2 prior low Hb 2018), HTN , HLD, chronic diarrhea, chronic back pain, opioid dependence/abuse, humeral fracture, possible ischemic colitis, sigmoid microperforation). She presents today with CC of back pain but is found to be anemic to the 6-range. The patient denies any whit bleeding in terms of new melena (chronic dark stools), hematochezia, hemetemesis, etc. Has been progressing over several days. Seen by GI here in the past; endoscopy done 05/2018 shos ulcers distal to the gastroenteric anastamosis and colonoscopy with deeply ulcerated mucosa in L- colon and sigmoid; ASCA serology positive. She was started on Asacol 800 TID and was lost to OP followup until she was readmitted later in 2018 for labile INR and had flex sig with Dr. Torres which showed improved sigmoid ulcerations. She is a poor historian and tells me and Dr. Abreu that she is here for back pain before falling asleep and being hesitant to answer questions. 10 sys ROS done and negative aside from HPI PMH, PSH, Family hx, Social hx reviewed Medication list reviewed; pending reconciliation. OBJECTIVE: VS, labs, imaging reviewed NAD, AAO, resting in bed. Pale NC AT EOMI PERRLA RRR s1/2 no mgr Lungs CTAB, w/ sym exp NT ND +BS CN2-12 wnl, no fnd Normal mood, flat affect ASSESSMENT AND PLAN: Patient presents for CC of back pain but found to have recurring anemia requiring transfusions. Transfusing and holding her AC. She has known deep L- colon/sigmoid ulcerations that have been improving per her last flex sig but is +FOBT today. 1) Recurring transfusion-dependent microcytic anemia -Has been transfused in the past and has been 6-range. Appears to be the same issue. Known endoscopic findings per HPI. She will have her AC held; ER transfused 2 units PRBC. We will prophylactically give BID IV protonix and consult GI. -Checking iron studies, retic count, etc. Will try to add on to ascertain prior to xf. See if she needs venofer. -She has had dark stools since she started iron 2) Positive FOBT -Known colonic ulcerations (improved on repeat flex sig) and ulcers distal to the gastroenteric anastamosis. Hold AC, trend CBC q8h until AM, consult GI. Keeping her NPO. 3) Back Pain -Chronic; does have opiate dependence. Consult physical therapy. No red flag signs. Will hold off on further imaging for now. 4) DM with hyperglycemia -SSI; is noncompliant with home meds. Check A1c. 5) Multiple DVTs/PE -Holding eliquis; is s/p IVC filter 10/2018. -Will discuss about resuming eliquis with GI 6) HTN -Continue lisinopril for now 7) HLD -Continue statin
[2019-01-22] MEDS ORDERED: PANTOPRAZOLE SODIUM 40 MG VIAL IVPUSH ONE (19:49)
[2019-01-22] MEDS: ATORVASTATIN CA 20 MG TABLET (FP) PO SCH (22:39)
[2019-01-22] MEDS: LISINOPRIL 5 MG TABLET (FP) PO SCH (22:39)
[2019-01-22] MEDS: INSULIN SLIDING SCALE (NOVOLOG) 1 VIAL SQ SCH (22:40)
[2019-01-22] MEDS: ACETAMINOPHEN 325 MG TABLET (FP) PO PRN (22:44)
[2019-01-23] MEDS: SODIUM CHLORIDE 1,000 ML IV SCH (05:59)
[2019-01-23] MEDS: INSULIN SLIDING SCALE (NOVOLOG) 1 VIAL SQ SCH ×4 (06:48→22:18)
[2019-01-23 08:31] LABS: BASO % 0.7 % (0-2.0); EOS % 2.3 % (0-4.5); HEMOGLOBIN 9.2 GM/dL (10.7-15.3); LYMPH % 28.8 % (8-40); MCH 23.5 pg (25.7-33.7); MCHC 30.8 g/dl (32.0-36.0); MEAN CELL VOLUME 76.5 fl (80-96); MEAN PLT VOLUME 8.9 fl (7.5-11.1); MONO % 7.4 % (3.8-10.2); NEUT % 60.8 % (42.8-82.8); PLATELET COUNT 359 K/MM3 (134-434); RBC 3.93 M/mm3 (3.60-5.2); RDW 18.5 % (11.6-15.6); WHITE BLOOD COUNT 7.5 K/mm3 (4.0-10.0)
[2019-01-23 08:49] LABS: INR 1.28 (0.83-1.09); PROTHROMBIN TIME (PATIENT) 15.2 SEC (9.7-13.0)
[2019-01-23 09:21] LABS: ALBUMIN 3.3 g/dl (3.4-5.0); ALK PHOS 39 U/L (45-117); ANION GAP 6 MMOL/L (8-16); BILIRUBIN,TOTAL 0.5 mg/dL (0.2-1); BLOOD UREA NITROGEN 29 mg/dL (7-18); CALCIUM 8.3 mg/dL (8.5-10.1); CHLORIDE 108 mmol/L (98-107); CO2 25 mmol/L (21-32); CREATININE 1.1 mg/dL (0.55-1.3); GLUCOSE,RANDOM 203 mg/dL (74-106); PHOSPHOROUS 3.9 mg/dL (2.5-4.9); POTASSIUM 4.7 mmol/L (3.5-5.1); SGOT/AST 10 U/L (15-37); SGPT/ALT 17 U/L (13-61); SODIUM 139 mmol/L (136-145); TOT PROT 5.6 g/dl (6.4-8.2)
[2019-01-23] MEDS ORDERED: PANTOPRAZOLE SODIUM 40 MG VIAL IVPUSH SCH (10:00)
[2019-01-23] MEDS ORDERED: PT OWN MED DRAWER 7, Y5N ONE (10:10)
[2019-01-23] MEDS: LISINOPRIL 5 MG TABLET (FP) PO SCH (10:15)
[2019-01-23] MEDS: ACETAMINOPHEN 325 MG TABLET (FP) PO PRN ×3 (10:16→23:21)
--- NOTE | 2019-01-23 10:16 | CON.GI ---
Consult Consult Specialty:: Gastroenterology ( covering [facility] GI service) Referred by:: Dr. Willie Mary Reason for Consultation:: Hb 6 - History of Present Illness Chief Complaint: Dizziness and weakness History of Present Illness: 59F diabetic has been experiencing dizziness, lightheadedness, weakness, LOPEZ, back pain and anorexia. She was found to have a glucose> 500 and Hb 6. She denies any overt bleeding. She denies abdominal pain or symptoms similar to when she had ischemic sigmoid colitis with microperforation in 09/17. This was managed conservatively. She moves her bowels once every 3 days and describes the stool as spinach consistency and black. She had severeal admission in 2018 for diarrhea but had no diarrhea this year. She takes iron chronically for anemia. She is followed by Dr Sanon. His colonoscopy on revealed segmental ulcerating colitis in the distal transverse, descending and sigmoid colon. Her terminal ileum was normal. His colonoscopy on 04/26/14 ( done for diarrhea and previous h/o colon polyps ) revealed normal colonic mucosa throughout and right colon biopsies failed to reveal microscopic colitis. EGD by Dr Sanon in 06/30/18 revealed a normal gastroenterostomy anastomosis but also found multiple ulcers with exudates just distal to this anastomosis. Her ASCA is positive and her father had IBD. Sigmoidoscopy on 08/05/[address] Torres revealed that the ulcers were improving although she presented with hematochezia at that time. She suffered the sigmoid microperforations in 09/17. She has been treated with Asacol in the past. She does not believe that she is taking it and has been noncompliant with MD visits. She had a gastric bypass at [facility] in 2008 when she weighed 318lbs. She denies NSAID usage since her bypass. 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 2nd hand smoke) Gastrointestinal: Yes: Other (morbid obesity; colon polyps; ischemic colitis with sigmoid/left colon ulcers, 06/17 postanastomosis small bowle ulcers) Hepatobiliary: Yes: Cholelithiasis (s/op GB surgery) Renal/: Yes: Other (ELLA) Heme/Onc: Yes: Anemia Infectious Disease: Yes: Other (PPD + per previous records) Psych: Yes: Anxiety, Depression Musculoskeletal: Yes: Chronic low back pain, Other (Lt shoulder pain, ?injury 5m ago) Endocrine: Yes: Diabetes Mellitus Additional Medical History: Cataract. Left humerus fracture 09/17- conservative management - Past Surgical History Past Surgical History: Yes: Bariatric Surgery (laparoscopic gastric bypass 2008) , Cholecystectomy (laparoscopic), Colonoscopy, Upper Endoscopy Additional Surgical History: Left nasal polypectomy 2012 with moderate squamous dysplasia - Alcohol/Substance Use Hx Alcohol Use: No History of Substance Use: reports: None, Prescription (percocet) - Smoking History Smoking history: Never smoked Have you smoked in the past 12 months: No Aproximately how many cigarettes per day: 0 - Social History Usual Living Arrangement: With Spouse ADL: Independent 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 Place of : [facility] History of Recent Travel: No Home Medications - Allergies Allergies/Adverse Reactions: Allergies Allergy/AdvReac Type Severity Reaction Status Date / Time No Known Allergies Allergy Verified 09/06/18 15:25 - Home Medications Home Medications: Ambulatory Orders Fenofibrate Nanocrystallized [Tricor] 145 mg PO DAILY 07/14/14 Insulin Lispro [Humalog] 5 unit SQ AC 07/14/14 Multivitamins [Multivit ([facility] Formulary)] 1 tab PO DAILY 07/14/14 Duloxetine HCl [Cymbalta] 30 mg PO DAILY 06/25/18 Ferrous Sulfate [Feosol] 325 mg PO DAILY #30 ud 07/15/18 Mesalamine [Asacol HD -] 800 mg PO TID #60 tablet.dr 07/15/18 Apixaban [Eliquis] 5 mg PO BID #60 tablet 08/06/18 Lisinopril 2.5 mg PO DAILY #30 tablet 08/06/18 Pravastatin Sodium [Pravachol -] 80 mg PO HS 09/07/18 Sitagliptin Phosphate [Januvia] 100 mg PO DAILY 09/07/18 metFORMIN HCL [Metformin HCl] 850 mg PO BID 09/07/18 Calcium 500Mg/Vit-D 200 Units [Os-Willy 500+D -] 2 tab PO DAILY #30 tab 09/16/18 Magnesium Oxide 500 mg PO DAILY #7 tablet 09/16/18 Pantoprazole Sodium [Protonix -] 40 mg PO DAILY #30 tablet.ec 09/16/18 Apixaban [Eliquis -] 5 mg PO BID 30 Days #60 tablet 10/08/18 Collagenase Clostridium Hist. [Santyl -] 1 applic TP DAILY 30 Days #2 tube 10/08 Fluconazole [Diflucan -] 100 mg PO DAILY #7 tablet 10/08/18 Levofloxacin [Levaquin] 750 mg PO DAILY 7 Days #7 tablet 10/08/18 Family Disease History - Family Disease History Family Disease History: [place]: Brother (1, leukemia), Other: Father (: 52: [place]. ? h/o crohn's ), Mother (Alive: healthy), Brother, Sister (2, healthy) Other Family History: maternal aunt had ovarian cancer Review of Systems - Review of Systems Constitutional: reports: Lethargy, Loss of Appetite, Malaise, Unintentional Wgt. Loss Eyes: reports: Recent Change in Vision (cataract impairs left eye vision) HENT: reports: No Symptoms Neck: reports: No Symptoms Cardiovascular: reports: No Symptoms Respiratory: reports: No Symptoms Gastrointestinal: reports: No Symptoms Genitourinary: reports: No Symptoms Musculoskeletal: reports: Back Pain, Joint Pain (left shoulder humerus fracture site) Physical Exam-GI Vital Signs: Vital Signs Temperature 98.7 F 01/23/19 09:26 Pulse Rate 75 01/23/19 09:26 Respiratory Rate 18 01/23/19 09:26 Blood Pressure 120/54 L 01/23/19 09:26 O2 Sat by Pulse Oximetry (%) 100 01/22/19 20:50 CBC,CMP WBC 7.5 K/mm3 (4.0-10.0) 01/23/19 07:00 RBC 3.93 M/mm3 (3.60-5.2) 01/23/19 07:00 Hgb 9.2 GM/dL (10.7-15.3) L 01/23/19 07:00 Hct 30.0 % (32.4-45.2) L D 01/23/19 07:00 MCV 76.5 fl (80-96) L 01/23/19 07:00 MCH 23.5 pg (25.7-33.7) L D 01/23/19 07:00 MCHC 30.8 g/dl (32.0-36.0) L 01/23/19 07:00 RDW 18.5 % (11.6-15.6) H 01/23/19 07:00 Plt Count 359 K/MM3 (134-434) 01/23/19 07:00 MPV 8.9 fl (7.5-11.1) 01/23/19 07:00 Absolute Neuts (auto) 4.6 K/mm3 (1.5-8.0) 01/23/19 07:00 Neutrophils % 60.8 % (42.8-82.8) D 01/23/19 07:00 Lymphocytes % 28.8 % (8-40) D 01/23/19 07:00 Monocytes % 7.4 % (3.8-10.2) 01/23/19 07:00 Eosinophils % 2.3 % (0-4.5) D 01/23/19 07:00 Basophils % 0.7 % (0-2.0) 01/23/19 07:00 Nucleated RBC % 0 % (0-0) 01/23/19 07:00 Hypochromia 3+ 01/22/19 14:30 Sodium 139 mmol/L (136-145) 01/23/19 07:00 Potassium 4.7 mmol/L (3.5-5.1) 01/23/19 07:00 Chloride 108 mmol/L (98-107) H 01/23/19 07:00 Carbon Dioxide 25 mmol/L (21-32) 01/23/19 07:00 Anion Gap 6 MMOL/L (8-16) L 01/23/19 07:00 BUN 29 mg/dL (7-18) H 01/23/19 07:00 Creatinine 1.1 mg/dL (0.55-1.3) 01/23/19 07:00 Creat Clearance w eGFR 50.67 (>60) 01/23/19 07:00 POC Glucometer 219 UNITS (80-120) 01/23/19 05:56 Random Glucose 203 mg/dL (74-106) H 01/23/19 07:00 Hemoglobin A1c % 7.9 % (4.2-6.3) H 01/23/19 07:00 Calcium 8.3 mg/dL (8.5-10.1) L 01/23/19 07:00 Phosphorus 3.9 mg/dL (2.5-4.9) 01/23/19 07:00 Magnesium 2.0 mg/dL (1.8-2.4) 01/23/19 07:00 Total Bilirubin 0.5 mg/dL (0.2-1) 01/23/19 07:00 AST 10 U/L (15-37) L 01/23/19 07:00 ALT 17 U/L (13-61) 01/23/19 07:00 Alkaline Phosphatase 39 U/L (45-117) L 01/23/19 07:00 Total Protein 5.6 g/dl (6.4-8.2) L 01/23/19 07:00 Albumin 3.3 g/dl (3.4-5.0) L 01/23/19 07:00 TSH 0.70 uIU/ml (0.358-3.74) 01/23/19 07:00 Current Medications Generic Name Dose Route Start Last Admin Trade Name Freq PRN Reason Stop Dose Admin Acetaminophen 650 mg 01/22/19 19:45 01/23/19 10:16 Tylenol - PO 650 mg Q6H PRN Administration PAIN LEVEL 1-5 Atorvastatin Calcium 20 mg 01/22/19 22:00 01/22/19 22:39 Lipitor - PO 20 mg HS YAMILKA Administration Sodium Chloride 1,000 mls @ 50 mls/hr 01/23/19 03:15 01/23/19 05:59 Normal Saline - IV 01/24/19 03:15 50 mls/hr ASDIR YAMILKA Administration Insulin Aspart 1 vial 01/22/19 22:00 01/23/19 06:48 Novolog Vial Sliding Scale - SQ 2 unit ACHS YAMILKA Administration Protocol Lisinopril 2.5 mg 01/22/19 20:00 01/23/19 10:15 Prinivil PO 2.5 mg DAILY YAMILKA Administration Pantoprazole Sodium 40 mg 01/23/19 10:00 01/23/19 10:15 Protonix Iv IVPUSH 40 mg BID YAMILKA Administration Constitutional: Yes: Anxious Eyes: Yes: Conjunctiva Clear HENT: Yes: Atraumatic Neck: Yes: Supple, Tenderness Respiratory: Yes: CTA Bilaterally Gastrointestinal Inspection: Yes: Scars (healed laparosopic incisions) ...Auscultate: Yes: Normoactive Bowel Sounds ...Palpate: Yes: Soft, Other (nontender) ...Percussion: Yes: Tympanitic ...Rectal Exam: Yes: Guaiac Positive (black semisolid strongly guaiac positive stool) Edema: No Peripheral Pulses WNL: Yes Neurological: Yes: Alert, Oriented Labs: CBC, BMP 01/23/19 07:00 01/23/19 07:00 INR, PTT INR 1.28 (0.83-1.09) H 01/23/19 07:00 Laboratory Tests 11/30/11 03/04/13 08/13/14 17:30 12:42 07:15 Hgb 12.1 13.5 12.2 MCV Iron TIBC Iron Saturation Transferrin Ferritin Vitamin B12 Gastrin FRANSISCA Screen c-ANCA Endomysial IgA Ab Tiss Transglutamin IgG Tiss Transglutamin IgA Anti-Gliadin IgG Ab Anti-Gliadin IgA Ab Hep B Core Total Ab Hep C Ab Diagnostic S.cerevisiae IgG Ab S. cerevisiae IgG/IgA 06/25/18 06/25/18 06/26/18 13:12 17:11 05:45 Hgb 5.9 L* MCV Iron TIBC Iron Saturation Transferrin 207 Ferritin Vitamin B12 793 Gastrin FRANSISCA Screen c-ANCA Endomysial IgA Ab Tiss Transglutamin IgG Tiss Transglutamin IgA Anti-Gliadin IgG Ab Anti-Gliadin IgA Ab Hep B Core Total Ab Hep C Ab Diagnostic S.cerevisiae IgG Ab S. cerevisiae IgG/IgA 06/27/18 06/27/18 06/27/18 06:00 06:00 06:00 Hgb MCV Iron TIBC Iron Saturation Transferrin Ferritin Vitamin B12 Gastrin FRANSISCA Screen c-ANCA Endomysial IgA Ab Negative Tiss Transglutamin IgG < 2 Tiss Transglutamin IgA <2 Anti-Gliadin IgG Ab 2 Anti-Gliadin IgA Ab 2 Hep B Core Total Ab Negative Hep C Ab Diagnostic <0.1 S.cerevisiae IgG Ab S. cerevisiae IgG/IgA 07/01/18 07/02/18 08/03/18 06:40 07:00 05:45 Hgb MCV Iron TIBC Iron Saturation Transferrin Ferritin 130.3 Vitamin B12 Gastrin 72 FRANSISCA Screen c-ANCA Endomysial IgA Ab Tiss Transglutamin IgG Tiss Transglutamin IgA Anti-Gliadin IgG Ab Anti-Gliadin IgA Ab Hep B Core Total Ab Hep C Ab Diagnostic S.cerevisiae IgG Ab 31.9 H S. cerevisiae IgG/IgA 49.9 H 09/06/18 09/08/18 09/10/18 20:00 06:45 06:00 Hgb 6.9 L* MCV Iron 6 L TIBC 194 L Iron Saturation 3 L Transferrin Ferritin Vitamin B12 Gastrin FRANSISCA Screen Negative c-ANCA <1:20 Endomysial IgA Ab Tiss Transglutamin IgG Tiss Transglutamin IgA Anti-Gliadin IgG Ab Anti-Gliadin IgA Ab Hep B Core Total Ab Hep C Ab Diagnostic S.cerevisiae IgG Ab S. cerevisiae IgG/IgA 10/07/18 01/22/19 01/23/19 06:30 14:30 07:00 Hgb 9.6 L 6.5 L* 9.2 L MCV 76.5 L Iron TIBC Iron Saturation Transferrin Ferritin Vitamin B12 Gastrin FRANSISCA Screen c-ANCA Endomysial IgA Ab Tiss Transglutamin IgG Tiss Transglutamin IgA Anti-Gliadin IgG Ab Anti-Gliadin IgA Ab Hep B Core Total Ab Hep C Ab Diagnostic S.cerevisiae IgG Ab S. cerevisiae IgG/IgA Problem List - Problems (1) Anemia Assessment/Plan: Given her strong occult blood found in the stool chronic indolent GI bleeding is the most likely cause of this anemia. I suspect that his reflects ulceration due to ischemia in the distal colon and the postanastomotic small bowel. Agree with transfusion and empiric PPI. Will discuss role of endoscopy with Dr Sanon upon his return on 01/25. Suspect low grade colitis as her diarrhea has not recurred. Code(s): D64.9 - ANEMIA, UNSPECIFIED Qualifiers: Iron deficiency anemia type: chronic blood loss (2) Status post gastric bypass for obesity Code(s): Z98.84 - BARIATRIC SURGERY STATUS (3) Chronic ischemic colitis Code(s): K55.1 - CHRONIC VASCULAR DISORDERS OF INTESTINE (4) DVT (deep venous thrombosis) Code(s): I82.409 - ACUTE EMBOLISM AND THOMBOS UNSP DEEP VN UNSP LOWER EXTREMITY (5) Depression, major, severe recurrence Code(s): F33.2 - MAJOR DEPRESSV DISORDER, RECURRENT SEVERE W/O PSYCH FEATURES (6) Diabetes mellitus type 2, insulin dependent Code(s): E11.9 - TYPE 2 DIABETES MELLITUS WITHOUT COMPLICATIONS; Z79.4 - UNIFORM FORCE CAPTAIN (CURRENT) USE OF INSULIN (7) Perforation of sigmoid colon Code(s): K63.1 - PERFORATION OF INTESTINE (NONTRAUMATIC) (8) GERD (gastroesophageal reflux disease) Code(s): K21.9 - GASTRO-ESOPHAGEAL REFLUX DISEASE WITHOUT ESOPHAGITIS (9) Microcytic anemia Code(s): D50.9 - IRON DEFICIENCY ANEMIA, UNSPECIFIED (10) Opioid abuse Code(s): F11.10 - OPIOID ABUSE, UNCOMPLICATED (11) Diarrhea Code(s): R19.7 - DIARRHEA, UNSPECIFIED Qualifiers: Diarrhea type: unspecified type Qualified Code(s): R19.7 - Diarrhea, unspecified Assessment/Plan Impression: Persistent microcytic anemia due to chronic GI blood loss from ischemic smal bowel and colon ulcerations and inability to absorb oral iron efficiently due to bariatric bypass surgery state. Plan: PPI BID Venofer infusion Will discuss role of endoscopy with Dr Sanon when he returns. If brisk bleeding ensues then I am prepared to intervene. Discussed with Dr Catherine
--- NOTE | 2019-01-23 10:41 | PN ---
Progress Note (short form) - Note Progress Note: c/o L shoulder pain. unable to move it due to the pain. also notes shes been having black stools but unsure if its worse than usual as she takes iron supplements. denies Cp, SOB, fever, chills, N/V/C/D or abdominal pain Current Medications Generic Name Dose Route Start Last Admin Trade Name Sharanq PRN Reason Stop Dose Admin Acetaminophen 650 mg 01/22/19 19:45 01/23/19 10:16 Tylenol - PO 650 mg Q6H PRN Administration PAIN LEVEL 1-5 Atorvastatin Calcium 20 mg 01/22/19 22:00 01/22/19 22:39 Lipitor - PO 20 mg HS YAMILKA Administration Sodium Chloride 1,000 mls @ 50 mls/hr 01/23/19 03:15 01/23/19 05:59 Normal Saline - IV 01/24/19 03:15 50 mls/hr ASDIR YAMILKA Administration Insulin Aspart 1 vial 01/22/19 22:00 01/23/19 06:48 Novolog Vial Sliding Scale - SQ 2 unit ACHS YAMILKA Administration Protocol Lisinopril 2.5 mg 01/22/19 20:00 01/23/19 10:15 Prinivil PO 2.5 mg DAILY YAMILKA Administration Pantoprazole Sodium 40 mg 01/23/19 10:00 01/23/19 10:15 Protonix Iv IVPUSH 40 mg BID YAMILKA Administration Last Vital Signs Temp Pulse Resp BP Pulse Ox 98.7 F 75 18 120/54 L 100 01/23/19 09:26 01/23/19 09:26 01/23/19 09:26 01/23/19 09:26 01/22/19 20:50 General NAD CV S1 s2 RRR lungs CTA B/L no wheezing/rales/rhonchi Abdomen soft NT/ND Extremities L shoulder can not abduct greater than 90 degree due to pain. no bone point tenderness CBCD WBC 7.5 K/mm3 (4.0-10.0) 01/23/19 07:00 RBC 3.93 M/mm3 (3.60-5.2) 01/23/19 07:00 Hgb 9.2 GM/dL (10.7-15.3) L 01/23/19 07:00 Hct 30.0 % (32.4-45.2) L D 01/23/19 07:00 MCV 76.5 fl (80-96) L 01/23/19 07:00 MCHC 30.8 g/dl (32.0-36.0) L 01/23/19 07:00 RDW 18.5 % (11.6-15.6) H 01/23/19 07:00 Plt Count 359 K/MM3 (134-434) 01/23/19 07:00 MPV 8.9 fl (7.5-11.1) 01/23/19 07:00 CMP Sodium 139 mmol/L (136-145) 01/23/19 07:00 Potassium 4.7 mmol/L (3.5-5.1) 01/23/19 07:00 Chloride 108 mmol/L (98-107) H 01/23/19 07:00 Carbon Dioxide 25 mmol/L (21-32) 01/23/19 07:00 Anion Gap 6 MMOL/L (8-16) L 01/23/19 07:00 BUN 29 mg/dL (7-18) H 01/23/19 07:00 Creatinine 1.1 mg/dL (0.55-1.3) 01/23/19 07:00 Creat Clearance w eGFR 50.67 (>60) 01/23/19 07:00 Calcium 8.3 mg/dL (8.5-10.1) L 01/23/19 07:00 Total Bilirubin 0.5 mg/dL (0.2-1) 01/23/19 07:00 AST 10 U/L (15-37) L 01/23/19 07:00 ALT 17 U/L (13-61) 01/23/19 07:00 Alkaline Phosphatase 39 U/L (45-117) L 01/23/19 07:00 Total Protein 5.6 g/dl (6.4-8.2) L 01/23/19 07:00 Albumin 3.3 g/dl (3.4-5.0) L 01/23/19 07:00 A/P 59 yo F with PMHx of Gastric bypass (?2004), recurrent anemia, DM, prior EGD/ colonoscopy in 05/2018 showing gastric ulcers at anastomotic site/Possible ischemic colitis, recent PE/LLE DVT on eliquis, IDDM, HTN, chronic diarrhea, opioid dependence, with L shoulder pain and found to be anemic 1. Microcytic anemia- s/p 2 units PRBC with appropriate response. has extensive hx of microperforations from UC with recent scope. spoke with GI. would liekly benefit from repeat at this time in setting of pt hx of non compliance and lack of follow up. will advance diet for now and monitor. repeat CBC later today and if stable will check daily. will give venofer as pt had gastric bypass and likely poor absorption of iron. hold eliquis 2. L shoulder pain- had fracture 07/2018 treated with conservative management. XR showing loose body. will consult ortho 3. Lumbar spine- degenerative disease. ortho eval 3. Hyperglycemia- likely not compliant with home medications. start BGM and iss 4. ELLA-due to dehydration. resolved. 5. HTN- controlled. cont home medications 6. PE/DVT- hold elquis 7. dyslipidemia- statin 8. DVT ppx- SCD Visit type - Emergency Visit Emergency Visit: Yes ED Registration Date: 01/23/19 Care time: The patient presented to the Emergency Department on the above date and was hospitalized for further evaluation of their emergent condition. - New Patient This patient is new to me today: Yes Date on this admission: 01/23/19 - Critical Care Critical Care patient: No - Discharge Referral Referred to [facility] Med P.C.: No
[2019-01-23] MEDS ORDERED: IRON SUCROSE INJECTION 200 MG in SODIUM CHLORIDE 90 ML IVPB ONE (12:00)
[2019-01-23 12:11] LABS: HEMATOCRIT 26.9 % (32.4-45.2); HEMOGLOBIN 8.4 GM/dL (10.7-15.3); MCH 23.5 pg (25.7-33.7); MCHC 31.2 g/dl (32.0-36.0); MEAN CELL VOLUME 75.4 fl (80-96); MEAN PLT VOLUME 8.8 fl (7.5-11.1); PLATELET COUNT 337 K/MM3 (134-434); RBC 3.56 M/mm3 (3.60-5.2); RDW 18.5 % (11.6-15.6); WHITE BLOOD COUNT 7.4 K/mm3 (4.0-10.0)
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
[2019-01-23 16:09] LABS: URINE APPEARANCE CLEAR; URINE BILIRUBIN NEGATIVE (<2.0 mg/dL); URINE COLOR LTYELLOW; URINE GLUCOSE (UA) 3+ (NEGATIVE); URINE KETONE NEGATIVE (NEGATIVE); URINE LEUK ESTERASE NEGATIVE (NEGATIVE); URINE NITRITE NEGATIVE (NEGATIVE); URINE PROTEIN NEGATIVE (NEGATIVE); URINE UROBILINOGEN NEGATIVE mg/dL (0.2-1.0)
[2019-01-23 16:20] LABS: COCAINE, UR NEGATIVE ng/ml (CUTOFF=300); METHADONE, UR NEGATIVE ng/ml (CUTOFF=300); OPIATES, URI NEGATIVE ng/ml (CUTOFF=300); PHENCYCLIDINE,URINE NEGATIVE ng/ml (CUTOFF=25); URINE AMPHETAMINES NEGATIVE ng/ml (CUTOFF=500); URINE BARBITURATES NEGATIVE ng/ml (CUTOFF=200); URINE BENZODIAZEPINES NEGATIVE ng/ml (CUTOFF=200)
[2019-01-23] MEDS ORDERED: INSULIN (NOVOLOG) ASPART 100 UNITS/ML 10ML VIAL ONE (17:25)
[2019-01-23 18:06] LABS: HEMATOCRIT 29.1 % (32.4-45.2); HEMOGLOBIN 9.1 GM/dL (10.7-15.3); MCH 23.2 pg (25.7-33.7); MCHC 31.2 g/dl (32.0-36.0); MEAN CELL VOLUME 74.5 fl (80-96); MEAN PLT VOLUME 8.6 fl (7.5-11.1); PLATELET COUNT 405 K/MM3 (134-434); RBC 3.91 M/mm3 (3.60-5.2); RDW 18.6 % (11.6-15.6); WHITE BLOOD COUNT 8.3 K/mm3 (4.0-10.0)
[2019-01-23] MEDS ORDERED: MAG HYDROX/AL HYDROX/SIMETH 30 ML UNIT-DOSE CUP PO PRN (19:32)
--- NOTE | 2019-01-23 22:06 | EKG ---
Test Reason : Blood Pressure : / mmHG Vent. Rate : 076 BPM Atrial Rate : 076 BPM P-R Int : 138 ms QRS Dur : 078 ms QT Int : 374 ms P-R-T Axes : 014 064 054 degrees QTc Int : 420 ms SINUS RHYTHM WITH PREMATURE SUPRAVENTRICULAR COMPLEXES LOW VOLTAGE QRS BORDERLINE ECG WHEN COMPARED WITH ECG OF 28-SEP-2018 15:43, PREMATURE SUPRAVENTRICULAR COMPLEXES ARE NOW PRESENT VENT. RATE HAS DECREASED BY 43 BPM Confirmed by INDIO TOLBERT MD ([id number]) on 01/23/2019 10:05:41 PM Referred By: Confirmed By:INDIO TOLBERT MD
[2019-01-23] MEDS: PANTOPRAZOLE 40 MG TABLET (FP) PO SCH (22:17)
[2019-01-23] MEDS: ATORVASTATIN CA 20 MG TABLET (FP) PO SCH (22:17)
[2019-01-24] MEDS ORDERED: MELATONIN 5 MG TABLETS PO ONE (03:49)
[2019-01-24] MEDS: INSULIN SLIDING SCALE (NOVOLOG) 1 VIAL SQ SCH ×4 (06:44→21:13)
[2019-01-24] MEDS: ACETAMINOPHEN 325 MG TABLET (FP) PO PRN ×3 (07:05→21:17)
[2019-01-24] MEDS: SODIUM CHLORIDE 1,000 ML IV SCH (07:19)
[2019-01-24 08:23] LABS: HEMATOCRIT 25.4 % (32.4-45.2); MCH 23.2 pg (25.7-33.7); MCHC 31.6 g/dl (32.0-36.0); MEAN CELL VOLUME 73.4 fl (80-96); MEAN PLT VOLUME 8.7 fl (7.5-11.1); PLATELET COUNT 319 K/MM3 (134-434); RBC 3.47 M/mm3 (3.60-5.2); RDW 19.3 % (11.6-15.6); WHITE BLOOD COUNT 6.1 K/mm3 (4.0-10.0)
--- NOTE | 2019-01-24 08:50 | PN ---
Physical Exam: SUBJECTIVE: Patient seen and examined at bedside. Patient had no new complaints. No diarrhea overnight. Patient had not had BM today yet. pain controlled. OBJECTIVE: Vital Signs Period Temp Pulse Resp BP Sys/Funes Pulse Ox Last 24 Hr 98.4 F-98.9 F 64-93 18-20 103-129/51-72 99-100 GENERAL: The patient is awake, alert, and fully oriented, in no acute distress. HEAD: Normal with no signs of trauma. NECK: Trachea midline, full range of motion, supple. LUNGS: Breath sounds equal, clear to auscultation bilaterally, no wheezes, no crackles, no accessory muscle use. HEART: Regular rate and rhythm, S1, S2 without murmur, rub or gallop. ABDOMEN: Soft, nontender, nondistended, normoactive bowel sounds, no guarding, no rebound, no hepatosplenomegaly, no masses. EXTREMITIES: 2+ pulses, warm, well-perfused, no edema. NEUROLOGICAL: Cranial nerves II through X grossly intact. Normal speech. PSYCH: Normal mood, normal affect. SKIN: Warm, dry, normal turgor, no rashes or lesions noted Laboratory Results - last 24 hr 01/22/19 01/22/19 01/23/19 06:30 06:30 07:00 WBC RBC Hgb Hct MCV MCH MCHC RDW Plt Count MPV Sodium 139 Potassium 4.7 Chloride 108 H Carbon Dioxide 25 Anion Gap 6 L BUN 29 H Creatinine 1.1 Creat Clearance w eGFR 50.67 POC Glucometer Random Glucose 203 H Hemoglobin A1c % Calcium 8.3 L Phosphorus 3.9 Magnesium 2.0 Total Bilirubin 0.5 AST 10 L ALT 17 Alkaline Phosphatase 39 L Total Protein 5.6 L Albumin 3.3 L TSH 0.70 Urine Color Ltyellow Urine Appearance Clear Urine pH 5.0 Ur Specific Braggs 1.014 Urine Protein Negative Urine Glucose (UA) 3+ H Urine Ketones Negative Urine Blood Negative Urine Nitrite Negative Urine Bilirubin Negative Urine Urobilinogen Negative Ur Leukocyte Esterase Negative Opiates Screen Negative Methadone Screen Negative Barbiturate Screen Negative Phencyclidine Screen Negative Ur Amphetamines Screen Negative MDMA (Ecstasy) Screen Negative Benzodiazepines Screen Negative Cocaine Screen Negative U Marijuana (THC) Screen Negative 01/23/19 01/23/19 01/23/19 07:00 11:35 11:50 WBC 7.4 RBC 3.56 L Hgb 8.4 L Hct 26.9 L MCV 75.4 L MCH 23.5 L MCHC 31.2 L RDW 18.5 H Plt Count 337 MPV 8.8 Sodium Potassium Chloride Carbon Dioxide Anion Gap BUN Creatinine Creat Clearance w eGFR POC Glucometer 346 Random Glucose Hemoglobin A1c % 7.9 H Calcium Phosphorus Magnesium Total Bilirubin AST ALT Alkaline Phosphatase Total Protein Albumin TSH Urine Color Urine Appearance Urine pH Ur Specific Braggs Urine Protein Urine Glucose (UA) Urine Ketones Urine Blood Urine Nitrite Urine Bilirubin Urine Urobilinogen Ur Leukocyte Esterase Opiates Screen Methadone Screen Barbiturate Screen Phencyclidine Screen Ur Amphetamines Screen MDMA (Ecstasy) Screen Benzodiazepines Screen Cocaine Screen U Marijuana (THC) Screen 01/23/19 01/23/19 01/23/19 17:18 18:00 22:16 WBC 8.3 RBC 3.91 Hgb 9.1 L Hct 29.1 L MCV 74.5 L MCH 23.2 L MCHC 31.2 L RDW 18.6 H Plt Count 405 D MPV 8.6 Sodium Potassium Chloride Carbon Dioxide Anion Gap BUN Creatinine Creat Clearance w eGFR POC Glucometer 224 276 Random Glucose Hemoglobin A1c % Calcium Phosphorus Magnesium Total Bilirubin AST ALT Alkaline Phosphatase Total Protein Albumin TSH Urine Color Urine Appearance Urine pH Ur Specific Braggs Urine Protein Urine Glucose (UA) Urine Ketones Urine Blood Urine Nitrite Urine Bilirubin Urine Urobilinogen Ur Leukocyte Esterase Opiates Screen Methadone Screen Barbiturate Screen Phencyclidine Screen Ur Amphetamines Screen MDMA (Ecstasy) Screen Benzodiazepines Screen Cocaine Screen U Marijuana (THC) Screen 01/24/19 01/24/19 06:00 06:17 WBC 6.1 RBC 3.47 L Hgb 8.0 L Hct 25.4 L MCV 73.4 L MCH 23.2 L MCHC 31.6 L RDW 19.3 H Plt Count 319 D MPV 8.7 Sodium Potassium Chloride Carbon Dioxide Anion Gap BUN Creatinine Creat Clearance w eGFR POC Glucometer 301 Random Glucose Hemoglobin A1c % Calcium Phosphorus Magnesium Total Bilirubin AST ALT Alkaline Phosphatase Total Protein Albumin TSH Urine Color Urine Appearance Urine pH Ur Specific Braggs Urine Protein Urine Glucose (UA) Urine Ketones Urine Blood Urine Nitrite Urine Bilirubin Urine Urobilinogen Ur Leukocyte Esterase Opiates Screen Methadone Screen Barbiturate Screen Phencyclidine Screen Ur Amphetamines Screen MDMA (Ecstasy) Screen Benzodiazepines Screen Cocaine Screen U Marijuana (THC) Screen Active Medications Generic Name Dose Route Start Last Admin Trade Name Silvia PRN Reason Stop Dose Admin Acetaminophen 650 mg 01/22/19 19:45 01/24/19 07:05 Tylenol - PO 650 mg Q6H PRN Administration PAIN LEVEL 1-5 Al Hydroxide/Mg Hydroxide 30 ml 01/23/19 19:32 01/23/19 19:53 Mylanta Oral Suspension - PO 30 ml Q6H PRN Administration DYSPEPSIA Atorvastatin Calcium 20 mg 01/22/19 22:00 01/23/19 22:17 Lipitor - PO 20 mg HS YAMILKA Administration Iron Sucrose 200 mg/ Sodium 110 mls @ 110 mls/hr 01/24/19 10:00 Chloride IVPB 01/27/19 10:59 DAILY YAMILKA Insulin Aspart 1 vial 01/22/19 22:00 01/24/19 06:44 Novolog Vial Sliding Scale - SQ 8 unit ACHS YAMILKA Administration Protocol Lisinopril 2.5 mg 01/22/19 20:00 01/23/19 10:15 Prinivil PO 2.5 mg DAILY YAMILKA Administration Pantoprazole Sodium 40 mg 01/23/19 22:00 01/23/19 22:17 Protonix - PO 40 mg BID YAMILKA Administration ASSESSMENT/PLAN: The patient is a 59 yo F with PMHx of Gastric bypass, recurrent anemia, gastric ulcers, recent PE/LLE DVT on eliquis, IDDM, HTN, chronic diarrhea, opioid dependence who came to the ED c/o L shoulder and back pain and was found to be anemic. #Microcytic Anemia likely 2/2 occult GI blood loss -Hb 6.5 on admit, s/p 2uPRBC w/ appropriate response -Hb 8.0 today; stable -monitor Hb w/ normal transfusion thresholds -s/p venofer infusion -GI onboard; will discuss role of EGD in AM -NPO past midnight in the event of EGD -holding eliquis until GIB ruled out #Recent fall; mechanical vs 2/2 anemia vs 2/2 narcotic use -treat anemia as above -fall precautions -minimize excessive narcotic use while admitted -holding AC #Left shoulder and back pain -recent trauma -MRI shoulder shows full thickness supraspinatus tear -ortho onboard -place left shoulder in sling while awaiting ortho eval -pain control #DM -BGM, ISS ACHS #HTN- controlled -c/w home meds #HLD- controlled -s/w statin #Prophy -SCDs -holding AC until bleed ruled out #FEN -no fluids indicated -lytes WNL -sodium controlled diet; NPO after midnight in the event of GI procedure in the AM #Dispo -admit med surg Visit type - Emergency Visit Emergency Visit: Yes ED Registration Date: 01/23/19 Care time: The patient presented to the Emergency Department on the above date and was hospitalized for further evaluation of their emergent condition. - New Patient This patient is new to me today: Yes Date on this admission: 01/28/19 - Critical Care Critical Care patient: No - Discharge Referral Referred to [facility] Med P.C.: No
[2019-01-24 09:01] LABS: ANION GAP 7 MMOL/L (8-16); BLOOD UREA NITROGEN 21 mg/dL (7-18); CALCIUM 8.5 mg/dL (8.5-10.1); CHLORIDE 105 mmol/L (98-107); CO2 25 mmol/L (21-32); CREATININE 1.1 mg/dL (0.55-1.3); GLUCOSE,RANDOM 277 mg/dL (74-106); POTASSIUM 4.6 mmol/L (3.5-5.1); SODIUM 137 mmol/L (136-145)
[2019-01-24] MEDS: PANTOPRAZOLE 40 MG TABLET (FP) PO SCH ×2 (09:32→21:13)
[2019-01-24] MEDS: IRON SUCROSE INJECTION 200 MG in SODIUM CHLORIDE 100 ML IVPB SCH (09:33)
[2019-01-24] MEDS: LISINOPRIL 5 MG TABLET (FP) PO SCH (09:33)
--- NOTE | 2019-01-24 11:42 | PN ---
Teaching Attending Note Name of Resident: Daniel Whaley ATTENDING PHYSICIAN STATEMENT I saw and evaluated the patient. I reviewed the resident's note and discussed the case with the resident. I agree with the resident's findings and plan as documented. SUBJECTIVE:pain improved. tolerating diet. no BM since arrival. denies CP, SOB, fever,chills, N/V/C/D OBJECTIVE: Last Vital Signs Temp Pulse Resp BP Pulse Ox 98.9 F 71 18 112/49 L 99 01/24/19 10:00 01/24/19 10:00 01/24/19 10:00 01/24/19 10:00 01/23/19 21:00 General NAD Abdomen soft NT/ND ASSESSMENT AND PLAN: 59 yo F with PMHx of Gastric bypass (?2004), recurrent anemia, DM, prior EGD/ colonoscopy in 05/2018 showing gastric ulcers at anastomotic site/Possible ischemic colitis, recent PE/LLE DVT on eliquis, IDDM, HTN, chronic diarrhea, opioid dependence, with L shoulder pain and found to be anemic 1. Microcytic anemia- s/p 2 units PRBC. hgb stable. no signs of active bleeding. tolerating diet. venofer day 2. plan for possible endoscopy tomorrow per GI. hold eliquis 2. L shoulder pain- had fracture 07/2018 treated with conservative management. MRI done awaiting official read. ortho on board. 3. Lumbar spine- degenerative disease. ortho on board 3. Hyperglycemia- last A1c 7.9 earlier this month. states she was told to stop her oral hypoglycemics. will need to be re-started on discharge. cont BGM and iss 4. ELLA-due to dehydration. resolved. 5. HTN- controlled. cont home medications 6. PE/DVT- hold elquis 7. dyslipidemia- statin 8. DVT ppx- SCD 9. anticipate d/c in next 24H pending results of endoscopy
[2019-01-24] MEDS ORDERED: MELATONIN 5 MG TABLETS PO PRN (14:01)
[2019-01-24] MEDS ORDERED: INSULIN (NOVOLOG) ASPART 100 UNITS/ML 10ML VIAL ONE (16:43)
[2019-01-24] MEDS: ATORVASTATIN CA 20 MG TABLET (FP) PO SCH (21:13)
[2019-01-25] MEDS: ACETAMINOPHEN 325 MG TABLET (FP) PO PRN ×3 (03:46→17:32)
[2019-01-25] MEDS: INSULIN SLIDING SCALE (NOVOLOG) 1 VIAL SQ SCH ×4 (06:32→22:34)
[2019-01-25 07:39] LABS: HEMATOCRIT 28.5 % (32.4-45.2); HEMOGLOBIN 8.9 GM/dL (10.7-15.3); MCH 23.4 pg (25.7-33.7); MCHC 31.1 g/dl (32.0-36.0); MEAN CELL VOLUME 75.2 fl (80-96); MEAN PLT VOLUME 8.7 fl (7.5-11.1); PLATELET COUNT 324 K/MM3 (134-434); RDW 19.8 % (11.6-15.6)
--- NOTE | 2019-01-25 08:41 | PN ---
Physical Exam: SUBJECTIVE: Patient seen this morning and reports she still has pain in her shoulder. She denies any loose bowel movements. Patient had no acute events overnight. Patient for endoscopy today. OBJECTIVE: Vital Signs Temperature 98.3 F 01/25/19 06:00 Pulse Rate 67 01/25/19 06:00 Respiratory Rate 16 01/25/19 06:00 Blood Pressure 112/42 L 01/25/19 06:00 O2 Sat by Pulse Oximetry (%) 96 01/24/19 21:00 GENERAL: The patient is awake, alert, and fully oriented, in no acute distress. HEAD: Normal with no signs of trauma. EYES: PERRL, extraocular movements intact LUNGS: Breath sounds equal, clear to auscultation bilaterally, HEART: Regular rate and rhythm, S1, S2 without murmur, rub or gallop. ABDOMEN: Soft, nontender, nondistended, normoactive bowel sounds, EXTREMITIES: 2+ pulses, warm, well-perfused, no edema. L shoulder tender to palpation PSYCH: Normal mood, normal affect. SKIN: Warm, dry, normal turgor, no rashes or lesions noted CBC, BMP 01/25/19 06:15 Active Medications Acetaminophen (Tylenol -) 650 mg PO Q6H PRN PRN Reason: PAIN LEVEL 1-5 Last Admin: 01/25/19 03:46 Dose: 650 mg Al Hydroxide/Mg Hydroxide (Mylanta Oral Suspension -) 30 ml PO Q6H PRN PRN Reason: DYSPEPSIA Last Admin: 01/23/19 19:53 Dose: 30 ml Atorvastatin Calcium (Lipitor -) 20 mg PO HS [facility] Last Admin: 01/24/19 21:13 Dose: 20 mg Iron Sucrose 200 mg/ Sodium (Chloride) 110 mls @ 110 mls/hr IVPB DAILY [facility] Stop: 01/27/19 10:59 Last Admin: 01/24/19 09:33 Dose: 110 mls/hr Insulin Aspart (Novolog Vial Sliding Scale -) 1 vial SQ ACHS [facility]; Protocol Last Admin: 01/25/19 06:32 Dose: Not Given Lisinopril (Prinivil) 2.5 mg PO DAILY [facility] Last Admin: 01/24/19 09:33 Dose: 2.5 mg Melatonin (Melatonin) 10 mg PO HS PRN PRN Reason: INSOMNIA Pantoprazole Sodium (Protonix -) 40 mg PO BID [facility] Last Admin: 01/24/19 21:13 Dose: 40 mg ASSESSMENT/PLAN: Patient is a 59 y/o female with a history of gastric bypass, recurrent anemia, IVC filter 10/18 for recent PE and DVT, IDDM, HTN, and opioid dependence who is here for supraspinatus tear of left shoulder. #Supraspinatus tear of left shoulder - MRI of left upper extremity:full thickness supraspinatus tear with 3 cm retraction and fluid retention in the subacromial, subdeltoid bursa - followed by Ortho, per Dr. Yu, pt f/u for patient arthroscopic procedure - tylenol 625 mg prn #anemia likely 2/2 to GI ulcers and ischemia - continued use of opioids - endocsopy today by Dr. Kimball - f/u results of endoscopy - endoscopy 07/01/18: diffuse colitis suggestive of ischemic colitis, ulcers distal to anastomosis - patient received 3 units PRBC, venofer infusion #DN - SS - levemir 14 units at night #HTN - lisinopril 20 mg daily #hx DVT/PE - holding elliquis - IVC filter 10/2018 - discuss when to resume after endoscopy #HLD - continue atorvastatin #DVT ppx - SCD's FEN - NPO until endoscopy - 09/30 abscess positive for VRE Dispo: f/u endoscopy results Visit type - Emergency Visit Emergency Visit: No - New Patient This patient is new to me today: Yes Date on this admission: 01/25/19 - Critical Care Critical Care patient: No
[2019-01-25 08:54] LABS: ANION GAP 7 MMOL/L (8-16); BLOOD UREA NITROGEN 23 mg/dL (7-18); CALCIUM 8.5 mg/dL (8.5-10.1); CHLORIDE 106 mmol/L (98-107); CO2 25 mmol/L (21-32); GLUCOSE,RANDOM 300 mg/dL (74-106); POTASSIUM 4.6 mmol/L (3.5-5.1); SODIUM 137 mmol/L (136-145)
--- NOTE | 2019-01-25 09:13 | PN ---
Progress Note (short form) - Note Progress Note: Ortho Pt seen and examined. Had MRI of left shoulder MRI shows full thickness RCT with 3 cm of retraction a/p Risks and benefits were d/w pt in detail Recommend arthroscopic RCR as outpt d/w pt possibility that tendon cannot be repaired- pt understands Nothing further to do as inpatient f/u once d/c'd d/w Dr. Yu
[2019-01-25] MEDS: PANTOPRAZOLE 40 MG TABLET (FP) PO SCH ×2 (09:19→22:33)
[2019-01-25] MEDS: IRON SUCROSE INJECTION 200 MG in SODIUM CHLORIDE 100 ML IVPB SCH (09:19)
[2019-01-25] MEDS: LISINOPRIL 5 MG TABLET (FP) PO SCH (09:19)
--- NOTE | 2019-01-25 11:38 | PN ---
Teaching Attending Note Name of Resident: Radha Kwon ATTENDING PHYSICIAN STATEMENT I saw and evaluated the patient. I reviewed the resident's note and discussed the case with the resident. I agree with the resident's findings and plan as documented. SUBJECTIVE:asymptomatic. denies CP, SOB< fever, chills, N/V/C/D OBJECTIVE: Last Vital Signs Temp Pulse Resp BP Pulse Ox 98.1 F 76 16 121/66 96 01/25/19 09:17 01/25/19 09:17 01/25/19 09:17 01/25/19 09:17 01/24/19 21:00 General NAD Abdomen soft NT/ND ASSESSMENT AND PLAN: 59 yo F with PMHx of Gastric bypass (?2004), recurrent anemia, DM, prior EGD/ colonoscopy in 05/2018 showing gastric ulcers at anastomotic site/Possible ischemic colitis, recent PE/LLE DVT on eliquis, IDDM, HTN, chronic diarrhea, opioid dependence, with L shoulder pain and found to be anemic 1. Microcytic anemia- s/p 2 units PRBC. hgb stable. no signs of active bleeding. tolerating diet. venofer day 3. plan for possible endoscopy today per GI. hold eliquis 2. L supraspinatus tendon rupture-full thickness rupture with retraction. partial biceps tear. f/u with ortho as outpatient for arthoscopic RCR. 3. Lumbar spine- degenerative disease. ortho on board 3. Hyperglycemia- last A1c 7.9 as per PMD pt was supposed to be on Lantus 14 units HS. will re-start. pt states she is taking it at home although earlier stated she was not taking anything. 4. ELLA-due to dehydration. resolved. 5. HTN- controlled. cont home medications 6. PE/DVT- hold elquis 7. dyslipidemia- statin 8. DVT ppx- SCD 9. anticipate d/c in next 24H pending if procedure is expected to be performed.
--- NOTE | 2019-01-25 14:17 | PN ---
Progress Note (short form) - Note Progress Note: Brief GI procedure report EGD with normal post bypass anatomy, no ulcers seen Would plan for colonoscopy tomorrow to further assess anemia Clear liquid diet today 4L golytely and 20mg PO dulcolax at 6pm NPO after MN, hold AC if feasible Please see if iron studies and ferritin can be added to pre transfusion labs
[2019-01-25] MEDS ORDERED: BISACODYL 5 MG TABLET.DR (FP) PO ONE (14:18)
[2019-01-25] MEDS ORDERED: PEG 3350/NA SULF BICARB CL/KCL 4000 ML SOLN.RECON PO ONE (14:18)
[2019-01-25] MEDS ORDERED: INSULIN (LEVEMIR) 100 UNITS/ML UNITS SQ SCH ×2 (22:00)
[2019-01-25] MEDS: ATORVASTATIN CA 20 MG TABLET (FP) PO SCH (22:34)
[2019-01-26] MEDS: INSULIN SLIDING SCALE (NOVOLOG) 1 VIAL SQ SCH ×4 (06:26→22:05)
[2019-01-26] MEDS ORDERED: INSULIN (NOVOLOG) ASPART 100 UNITS/ML 10ML VIAL ONE (06:57)
[2019-01-26 07:04] LABS: HEMATOCRIT 27.7 % (32.4-45.2); HEMOGLOBIN 8.6 GM/dL (10.7-15.3); MCH 23.3 pg (25.7-33.7); MCHC 31.1 g/dl (32.0-36.0); MEAN PLT VOLUME 8.4 fl (7.5-11.1); PLATELET COUNT 266 K/MM3 (134-434); RBC 3.69 M/mm3 (3.60-5.2); RDW 20.3 % (11.6-15.6)
[2019-01-26 07:35] LABS: ALBUMIN 3.1 g/dl (3.4-5.0); ALK PHOS 33 U/L (45-117); ANION GAP 6 MMOL/L (8-16); BILIRUBIN,TOTAL 0.4 mg/dL (0.2-1); BLOOD UREA NITROGEN 11 mg/dL (7-18); CALCIUM 8.4 mg/dL (8.5-10.1); CHLORIDE 105 mmol/L (98-107); CO2 27 mmol/L (21-32); CREATININE 0.8 mg/dL (0.55-1.3); GLUCOSE,RANDOM 178 mg/dL (74-106); POTASSIUM 4.3 mmol/L (3.5-5.1); SGOT/AST 19 U/L (15-37); SGPT/ALT 17 U/L (13-61); SODIUM 137 mmol/L (136-145); TOT PROT 5.3 g/dl (6.4-8.2)
[2019-01-26] MEDS: LISINOPRIL 5 MG TABLET (FP) PO SCH (10:20)
[2019-01-26] MEDS: IRON SUCROSE INJECTION 200 MG in SODIUM CHLORIDE 100 ML IVPB SCH ×3 (10:21→19:39)
[2019-01-26] MEDS: PANTOPRAZOLE 40 MG TABLET (FP) PO SCH ×2 (10:26→22:04)
--- NOTE | 2019-01-26 13:04 | PN ---
Progress Note (short form) - Note Progress Note: Patient with Temp 101. Keep on clear liquid diet. If fever breaks, possible colonoscopy tomorrow with mag citrate to be given this evening
[2019-01-26] MEDS: ACETAMINOPHEN 325 MG TABLET (FP) PO PRN ×2 (13:10→19:10)
[2019-01-26] MEDS ORDERED: ENOXAPARIN NA (PORCINE) 40 MG/0.4 ML DISP.SYRIN SQ ONE ×2 (13:23→18:00)
--- NOTE | 2019-01-26 13:24 | PN ---
Physical Exam: SUBJECTIVE: Patient to have colonoscopy today. Patient spiked a fever of 101 and colonoscopy was cancelled, possibly rescheduled for tomorrow. Patient complains of new cough, no pain in calves. OBJECTIVE: Vital Signs Temperature 99.2 F 01/26/19 10:00 Pulse Rate 79 01/26/19 10:00 Respiratory Rate 18 01/26/19 10:00 Blood Pressure 140/60 01/26/19 10:00 O2 Sat by Pulse Oximetry (%) 98 01/25/19 21:00 GENERAL: The patient is awake, alert, and fully oriented, in no acute distress. HEAD: Normal with no signs of trauma. EYES: PERRL, extraocular movements intact LUNGS: Breath sounds equal, clear to auscultation bilaterally, HEART: Regular rate and rhythm, S1, S2 without murmur, rub or gallop. ABDOMEN: Soft, nontender, nondistended, normoactive bowel sounds, EXTREMITIES: 2+ pulses, warm, well-perfused, no edema. L shoulder tender to palpation, negative homans sign PSYCH: Normal mood, normal affect. SKIN: Warm, dry, normal turgor, no rashes or lesions noted CBC, BMP 01/26/19 06:15 01/26/19 06:15 Active Medications Acetaminophen (Tylenol -) 650 mg PO Q6H PRN PRN Reason: PAIN LEVEL 1-5 Last Admin: 01/25/19 17:32 Dose: 650 mg Al Hydroxide/Mg Hydroxide (Mylanta Oral Suspension -) 30 ml PO Q6H PRN PRN Reason: DYSPEPSIA Last Admin: 01/23/19 19:53 Dose: 30 ml Atorvastatin Calcium (Lipitor -) 20 mg PO [facility] Last Admin: 01/25/19 22:34 Dose: 20 mg Iron Sucrose 200 mg/ Sodium (Chloride) 110 mls @ 110 mls/hr IVPB DAILY [facility] Stop: 01/27/19 10:59 Last Admin: 01/26/19 10:23 Dose: Not Given Insulin Aspart (Novolog Vial Sliding Scale -) 1 vial SQ [facility]; Protocol Last Admin: 01/26/19 12:05 Dose: Not Given Insulin Detemir (Levemir Vial) 14 units SQ [facility] Lisinopril (Prinivil) 2.5 mg PO DAILY [facility] Last Admin: 01/26/19 10:20 Dose: 2.5 mg Melatonin (Melatonin) 10 mg PO HS PRN PRN Reason: INSOMNIA Pantoprazole Sodium (Protonix -) 40 mg PO BID [facility] Last Admin: 01/26/19 10:26 Dose: Not Given ASSESSMENT/PLAN: Patient is a 59 y/o female with a history of gastric bypass, recurrent anemia, IVC filter 10/18 for recent PE and DVT, IDDM, HTN, and opioid dependence who is here for supraspinatus tear of left shoulder. #fever with unknown source - off anticoagulaion for two weeks, physical exam unsuspecting of clot - UA: low colonization of organisms and asymptomatic - Chest XR: negative for any acute processes - f/u blood cultures #Supraspinatus tear of left shoulder - MRI of left upper extremity:full thickness supraspinatus tear with 3 cm retraction and fluid retention in the subacromial, subdeltoid bursa - followed by Ortho, per Dr. Yu, pt f/u for patient arthroscopic procedure - tylenol 625 mg prn #anemia likely 2/2 to GI ulcers and ischemia - continued use of opioids - endocsopy: ulcers at anastamosis, gastric pouch normal, esophagus without ulcers, small bowel multiple non bleeding ulcers - endoscopy 07/01/18: diffuse colitis suggestive of ischemic colitis, ulcers distal to anastomosis - patient received 2 units PRBC, venofer infusion - colonoscopy rescheduled, if fever breaks will be done tomorrow #DN - SS - levemir 14 units at night #HTN - lisinopril 20 mg daily #hx DVT/PE - holding elliquis - IVC filter 10/2018 - discuss when to resume after colonoscopy #HLD - continue atorvastatin #DVT ppx - SCD's - one dose lovenox today, hold tomorrow FEN - clear liquids with NPO overnight - 09/30 abscess positive for VRE Dispo: f/u fever tomorrow Visit type - Emergency Visit Emergency Visit: No - New Patient This patient is new to me today: No - Critical Care Critical Care patient: No
[2019-01-26] MEDS ORDERED: PT OWN MED DRAWER 7, Y5N ONE (15:50)
--- NOTE | 2019-01-26 17:13 | PN ---
Teaching Attending Note Name of Resident: Radha Kwon ATTENDING PHYSICIAN STATEMENT I saw and evaluated the patient. I reviewed the resident's note and discussed the case with the resident. I agree with the resident's findings and plan as documented. SUBJECTIVE: Complains of shoulder pain. No abdominal pain/nausea/vomiting/ diarrhea/melena/hematochezia. Fever today - no cough/sputum, dysuria, hematuria. OBJECTIVE: Febrile - Tmax 101 reported by nursing, Hemodynamically Stable. Last Vital Signs Temp Pulse Resp BP Pulse Ox 99.8 F H 90 18 116/60 98 01/26/19 15:14 01/26/19 15:14 01/26/19 15:14 01/26/19 15:14 01/25/19 21:00 HEENT - Atraumatic, Normocephalic. Heart - S1, S2, RRR Lungs - clear to auscultation Abdomen - Mild diffuse tenderness, soft. Bowel Sounds normal. Extremities - no edema, no calf tenderness. Laboratory Results - last 24 hr 01/22/19 01/25/19 01/25/19 17:10 17:30 22:32 WBC RBC Hgb Hct MCV MCH MCHC RDW Plt Count MPV Sodium Potassium Chloride Carbon Dioxide Anion Gap BUN Creatinine Creat Clearance w eGFR POC Glucometer 307 125 Random Glucose Calcium Ferritin Total Bilirubin AST ALT Alkaline Phosphatase Total Protein Albumin Blood Type O POSITIVE Antibody Screen Positive Antibody Identification Anti-K Antigen Identification E Antigen - NEGATIVE Crossmatch See Detail 01/26/19 01/26/19 01/26/19 06:15 06:15 06:21 WBC 4.0 RBC 3.69 Hgb 8.6 L Hct 27.7 L MCV 75.0 L MCH 23.3 L MCHC 31.1 L RDW 20.3 H Plt Count 266 MPV 8.4 Sodium 137 Potassium 4.3 Chloride 105 Carbon Dioxide 27 Anion Gap 6 L BUN 11 Creatinine 0.8 Creat Clearance w eGFR > 60 POC Glucometer 191 Random Glucose 178 H Calcium 8.4 L Ferritin 212.2 Total Bilirubin 0.4 AST 19 ALT 17 Alkaline Phosphatase 33 L Total Protein 5.3 L Albumin 3.1 L Blood Type Antibody Screen Antibody Identification Antigen Identification Crossmatch 01/26/19 12:04 WBC RBC Hgb Hct MCV MCH MCHC RDW Plt Count MPV Sodium Potassium Chloride Carbon Dioxide Anion Gap BUN Creatinine Creat Clearance w eGFR POC Glucometer 121 Random Glucose Calcium Ferritin Total Bilirubin AST ALT Alkaline Phosphatase Total Protein Albumin Blood Type Antibody Screen Antibody Identification Antigen Identification Crossmatch Current Medications Generic Name Dose Route Start Last Admin Trade Name Silvia PRN Reason Stop Dose Admin Acetaminophen 650 mg 01/22/19 19:45 01/26/19 13:10 Tylenol - PO 650 mg Q6H PRN Administration PAIN LEVEL 1-5 Al Hydroxide/Mg Hydroxide 30 ml 01/23/19 19:32 01/23/19 19:53 Mylanta Oral Suspension - PO 30 ml Q6H PRN Administration DYSPEPSIA Atorvastatin Calcium 20 mg 01/22/19 22:00 01/25/19 22:34 Lipitor - PO 20 mg HS YAMILKA Administration Cyanocobalamin 100 mcg 01/27/19 10:00 Vitamin B12 - PO DAILY [facility] Iron Sucrose 200 mg/ Sodium 110 mls @ 110 mls/hr 01/24/19 10:00 01/26/19 10: 23 Chloride IVPB 01/27/19 10:59 Not Given DAILY [facility] Insulin Aspart 1 vial 01/22/19 22:00 01/26/19 12:05 Novolog Vial Sliding Scale - SQ Not Given ACHS [facility] Protocol Insulin Detemir 14 units 01/26/19 22:00 Levemir Vial SQ HS [facility] Lisinopril 2.5 mg 01/22/19 20:00 01/26/19 10:20 Prinivil PO 2.5 mg DAILY [facility] Administration Melatonin 10 mg 01/24/19 14:01 Melatonin PO HS PRN INSOMNIA Pantoprazole Sodium 40 mg 01/23/19 22:00 01/26/19 10:26 Protonix - PO Not Given BID [facility] ASSESSMENT AND PLAN: 59 year old female with history of gastric bypass with subsequent GI bleed due to anastomotic ulcers, history of ischemic colitis, DM 2, recent PE/LLE DVT on Eliquis, HTN, history of chronic diarrhea, opioid dependence, presented with L shoulder pain, found to have severe anemia. FOBT positive but patient on oral iron supplementation. 1. Microcytic anemia likely secondary to poor iron absorption due to gastric bypass surgery - EGD/[place] to rule out GI bleed. EGD 01/25 - normal post-gastric bypass anatomy. Colonoscopy today cancelled due to fever. H.H 8.6/27.7 s/p 2 units PRBCs Ferritin level 212 but this was checked after IV venofer and after blood transfusion. Will re-attempt colonoscopy tomorrow. Monitor H/H 2. Fever, etiology unclear. CXR/Flu/Blood Cx requested. Urine Cx < 100,000 CFU Ecoli and Strep. If any diarrhea, will send Cdiff and Cx. 3. L supraspinatus tendon rupture - full thickness rupture with retraction/ partial biceps tear. Evaluated by Ortho - for out-patient evaluation for arthroscopic repair. 4. DM 2 with Hyperglycemia - resumed on Lantus. Poor compliance for past 2 weeks as per patient. 5. ELLA - due to dehydration. Resolved. 6. HTN - controlled. Continue Lisinopril. 7. Hx DVT/PE - normally on Eliquis, now held for Colonoscopy. Will give one time dose Lovenox. 8. HLD - continue Statin. DVT Px - SCDs. Eliquis to resume if no bleeding on Colonoscopy.
[2019-01-26] MEDS ORDERED: guaiFENesin 200 MG/10 ML 10 ML UNIT-DOSE CUPS PO ONE (21:52)
[2019-01-26] MEDS ORDERED: INSULIN (LEVEMIR) 100 UNITS/ML UNITS SQ SCH (22:00)
[2019-01-26] MEDS ORDERED: MAGNESIUM CITRATE 300 ML BOTTLE PO ONE (22:00)
[2019-01-26] MEDS: ATORVASTATIN CA 20 MG TABLET (FP) PO SCH (22:04)
[2019-01-26] MEDS: INSULIN (LEVEMIR) 100 UNITS/ML UNITS SQ SCH (22:06)
[2019-01-26] MEDS ORDERED: ACETAMINOPHEN 325 MG TABLET (FP) PO ONE (22:45)
[2019-01-27] MEDS ORDERED: guaiFENesin 200 MG/10 ML 10 ML UNIT-DOSE CUPS PO ONE (04:19)
[2019-01-27] MEDS: ACETAMINOPHEN 325 MG TABLET (FP) PO PRN ×3 (05:59→19:45)
[2019-01-27] MEDS: INSULIN SLIDING SCALE (NOVOLOG) 1 VIAL SQ SCH ×4 (06:01→22:01)
[2019-01-27 06:56] LABS: HEMATOCRIT 29.9 % (32.4-45.2); HEMOGLOBIN 9.2 GM/dL (10.7-15.3); MCH 23.3 pg (25.7-33.7); MCHC 30.7 g/dl (32.0-36.0); MEAN PLT VOLUME 8.6 fl (7.5-11.1); PLATELET COUNT 232 K/MM3 (134-434); RBC 3.94 M/mm3 (3.60-5.2); RDW 21.9 % (11.6-15.6); WHITE BLOOD COUNT 2.7 K/mm3 (4.0-10.0)
[2019-01-27 07:41] LABS: ALBUMIN 3.2 g/dl (3.4-5.0); ALK PHOS 35 U/L (45-117); ANION GAP 7 MMOL/L (8-16); BILIRUBIN,TOTAL 0.3 mg/dL (0.2-1); BLOOD UREA NITROGEN 7 mg/dL (7-18); CALCIUM 8.9 mg/dL (8.5-10.1); CHLORIDE 104 mmol/L (98-107); CO2 26 mmol/L (21-32); CREATININE 0.9 mg/dL (0.55-1.3); GLUCOSE,RANDOM 213 mg/dL (74-106); MAGNESIUM 1.6 mg/dL (1.8-2.4); PHOSPHOROUS 4.4 mg/dL (2.5-4.9); POTASSIUM 4.4 mmol/L (3.5-5.1); SGOT/AST 24 U/L (15-37); SGPT/ALT 21 U/L (13-61); SODIUM 137 mmol/L (136-145); TOT PROT 5.6 g/dl (6.4-8.2)
[2019-01-27] MEDS ORDERED: traMADol HCL 50 MG TABLET PO ONE (07:59)
[2019-01-27] MEDS ORDERED: INSULIN (NOVOLOG) ASPART 100 UNITS/ML 10ML VIAL ONE ×3 (08:09→17:56)
[2019-01-27] MEDS ORDERED: MAGNESIUM SULF 50% (8.12 MEQ/2 ML-1 GM VIAL) IVPB ONE (08:45)
[2019-01-27] MEDS: IRON SUCROSE INJECTION 200 MG in SODIUM CHLORIDE 100 ML IVPB SCH (09:28)
[2019-01-27] MEDS: LISINOPRIL 5 MG TABLET (FP) PO SCH (09:33)
[2019-01-27] MEDS: PANTOPRAZOLE 40 MG TABLET (FP) PO SCH ×2 (09:33→22:01)
[2019-01-27] MEDS: CYANOCOBALAMIN (VITAMIN B-12) 100 MCG TABLET PO SCH (09:34)
[2019-01-27] MEDS: guaiFENesin 200 MG/10 ML 10 ML UNIT-DOSE CUPS PO PRN ×2 (11:27→19:47)
--- NOTE | 2019-01-27 11:40 | PN ---
Progress Note (short form) - Note Progress Note: ID consult dictated imp/reccd hospital day #5 59 yo female admitted 01/22 with hyperglycemia and frequent falls, found to have anemia and hyperglycemia she has been transfused and is s/p egd on 01/25 yesterday she developed fever with TM 101 her only complaint is cough which has started after admission to the hospital denies myalgias cxray is negative PE is unremarkable labs notable for leukopenia suspect viral respiratory tract infection check diff on cbc repeat influenza antigen -sensitivity is low, specificity is high agree with RSV and resp virus panel blood cultures pending observe off antibiotics at this time
[2019-01-27 12:09] LABS: ANISOCYTOSIS 1+; PLATELET ESTIMATE NORMAL
--- NOTE | 2019-01-27 13:22 | PN ---
Physical Exam: SUBJECTIVE: Patient seen this morning with complaints of cough. She states it is worsening and she has been feeling feverish overnight. OBJECTIVE: Vital Signs Temperature 99.5 F 01/27/19 10:00 Pulse Rate 77 01/27/19 10:00 Respiratory Rate 18 01/27/19 10:00 Blood Pressure 122/66 01/27/19 10:00 O2 Sat by Pulse Oximetry (%) 98 01/27/19 09:00 GENERAL: The patient is awake, alert, and fully oriented, in no acute distress. HEAD: Normal with no signs of trauma. EYES: PERRL, extraocular movements intact LUNGS: Breath sounds equal, clear to auscultation bilaterally, HEART: Regular rate and rhythm, S1, S2 without murmur, rub or gallop. ABDOMEN: Soft, nontender, nondistended, normoactive bowel sounds, EXTREMITIES: 2+ pulses, warm, well-perfused, no edema. L shoulder tender to palpation, negative homans sign PSYCH: Normal mood, normal affect. SKIN: Warm, dry, normal turgor, no rashes or lesions noted CBC, BMP 01/27/19 06:30 01/27/19 06:30 Active Medications Acetaminophen (Tylenol -) 650 mg PO Q6H PRN PRN Reason: PAIN LEVEL 1-5 Last Admin: 01/27/19 05:59 Dose: 650 mg Al Hydroxide/Mg Hydroxide (Mylanta Oral Suspension -) 30 ml PO Q6H PRN PRN Reason: DYSPEPSIA Last Admin: 01/23/19 19:53 Dose: 30 ml Atorvastatin Calcium (Lipitor -) 20 mg PO [facility] Last Admin: 01/26/19 22:04 Dose: 20 mg Cyanocobalamin (Vitamin B12 -) 100 mcg PO DAILY [facility] Last Admin: 01/27/19 09:34 Dose: 100 mcg Guaifenesin (Robitussin -) 10 ml PO Q6H PRN PRN Reason: COUGH Last Admin: 01/27/19 11:27 Dose: 10 ml Insulin Aspart (Novolog Vial Sliding Scale -) 1 vial SQ [facility]; Protocol Last Admin: 01/27/19 11:26 Dose: 6 unit Insulin Detemir (Levemir Vial) 7 units SQ [facility] Last Admin: 01/26/19 22:06 Dose: Not Given Lisinopril (Prinivil) 2.5 mg PO DAILY [facility] Last Admin: 01/27/19 09:33 Dose: 2.5 mg Melatonin (Melatonin) 10 mg PO HS PRN PRN Reason: INSOMNIA Pantoprazole Sodium (Protonix -) 40 mg PO BID [facility] Last Admin: 01/27/19 09:33 Dose: 40 mg Tramadol HCl (Ultram -) 50 mg PO Q6H PRN PRN Reason: PAIN LEVEL 6-10 ASSESSMENT/PLAN: Patient is a 59 y/o female with a history of gastric bypass, recurrent anemia, IVC filter 10/18 for recent PE and DVT, IDDM, HTN, and opioid dependence who is here for supraspinatus tear of left shoulder. #fever with unknown source - off anticoagulaion for two weeks, physical exam unsuspecting of clot - UA: low colonization of organisms and asymptomatic - Chest XR: negative for any acute processes - f/u blood cultures - RSV positive - followed by Dr. Trejo #Supraspinatus tear of left shoulder - MRI of left upper extremity:full thickness supraspinatus tear with 3 cm retraction and fluid retention in the subacromial, subdeltoid bursa - followed by Ortho, per Dr. Yu, pt f/u for patient arthroscopic procedure - tylenol 625 mg prn - tramadol 50 mg q6h prn #anemia likely 2/2 to GI ulcers and ischemia - hgb stable - endocsopy: ulcers at anastamosis, gastric pouch normal, esophagus without ulcers, small bowel multiple non bleeding ulcers - endoscopy 07/01/18: diffuse colitis suggestive of ischemic colitis, ulcers distal to anastomosis - patient received 2 units PRBC, venofer infusion - colonoscopy deferred for surgery #DN - SS - levemir 14 units at night #HTN - lisinopril 20 mg daily #hx DVT/PE - holding elliquis - IVC filter 10/2018 - discuss when to resume after colonoscopy #HLD - continue atorvastatin #DVT ppx - SCD's - one dose lovenox today FEN - diabetic diet - 09/30 abscess positive for VRE Dispo: f/u fever tomorrow Visit type - Emergency Visit Emergency Visit: No - New Patient This patient is new to me today: No - Critical Care Critical Care patient: No
[2019-01-27] MEDS ORDERED: ENOXAPARIN NA (PORCINE) 40 MG/0.4 ML DISP.SYRIN SQ ONE ×2 (13:30→17:37)
--- NOTE | 2019-01-27 16:30 | PN ---
Teaching Attending Note Name of Resident: Radha Kwon ATTENDING PHYSICIAN STATEMENT I saw and evaluated the patient. I reviewed the resident's note and discussed the case with the resident. I agree with the resident's findings and plan as documented. SUBJECTIVE: Fever again today - cough, dry - no sputum/hemoptysis. No abdominal pain/nausea/vomiting/diarrhea/melena/hematochezia. No dysuria/hematuria. OBJECTIVE: Febrile - T 102.3, Hemodynamically Stable. Last Vital Signs Temp Pulse Resp BP Pulse Ox 102.3 F H 91 H 20 137/60 98 01/27/19 14:46 01/27/19 14:46 01/27/19 14:46 01/27/19 14:46 01/27/19 09:00 HEENT - Atraumatic, Normocephalic. Heart - S1, S2, RRR Lungs - clear to auscultation Abdomen - Mild diffuse tenderness, soft. Bowel Sounds normal. Extremities - no edema, no calf tenderness. Laboratory Results - last 24 hr 01/26/19 01/26/19 01/26/19 17:30 17:49 22:03 WBC RBC Hgb Hct MCV MCH MCHC RDW Plt Count MPV Neutrophils % (Manual) Band Neutrophils % Lymphocytes % (Manual) Monocytes % (Manual) Eosinophils % (Manual) Basophils % (Manual) Myelocytes % (Man) Promyelocytes % (Man) Blast Cells % (Manual) Nucleated RBC % Metamyelocytes Hypochromia Platelet Estimate Polychromasia Poikilocytosis Anisocytosis Microcytosis Sodium Potassium Chloride Carbon Dioxide Anion Gap BUN Creatinine Creat Clearance w eGFR POC Glucometer 176 151 Random Glucose Calcium Phosphorus Magnesium Total Bilirubin AST ALT Alkaline Phosphatase Total Protein Albumin Influenza A (Rapid) Negative Influenza B (Rapid) Negative RSV Rapid 01/27/19 01/27/19 01/27/19 05:58 06:30 06:30 WBC 2.7 L RBC 3.94 Hgb 9.2 L Hct 29.9 L MCV 76.0 L MCH 23.3 L MCHC 30.7 L RDW 21.9 H Plt Count 232 MPV 8.6 Neutrophils % (Manual) 66.4 Band Neutrophils % 0.0 Lymphocytes % (Manual) 19.6 D Monocytes % (Manual) 12 H D Eosinophils % (Manual) 1.9 D Basophils % (Manual) 0.0 Myelocytes % (Man) 0 D Promyelocytes % (Man) 0 Blast Cells % (Manual) 0 Nucleated RBC % 1 H Metamyelocytes 0 D Hypochromia 0 Platelet Estimate Normal Polychromasia 0 Poikilocytosis 1+ Anisocytosis 1+ Microcytosis 1+ Sodium 137 Potassium 4.4 Chloride 104 Carbon Dioxide 26 Anion Gap 7 L BUN 7 Creatinine 0.9 Creat Clearance w eGFR > 60 POC Glucometer 243 Random Glucose 213 H Calcium 8.9 Phosphorus 4.4 Magnesium 1.6 L Total Bilirubin 0.3 AST 24 ALT 21 Alkaline Phosphatase 35 L Total Protein 5.6 L Albumin 3.2 L Influenza A (Rapid) Influenza B (Rapid) RSV Rapid 01/27/19 01/27/19 01/27/19 10:15 10:15 11:17 WBC RBC Hgb Hct MCV MCH MCHC RDW Plt Count MPV Neutrophils % (Manual) Band Neutrophils % Lymphocytes % (Manual) Monocytes % (Manual) Eosinophils % (Manual) Basophils % (Manual) Myelocytes % (Man) Promyelocytes % (Man) Blast Cells % (Manual) Nucleated RBC % Metamyelocytes Hypochromia Platelet Estimate Polychromasia Poikilocytosis Anisocytosis Microcytosis Sodium Potassium Chloride Carbon Dioxide Anion Gap BUN Creatinine Creat Clearance w eGFR POC Glucometer 259 Random Glucose Calcium Phosphorus Magnesium Total Bilirubin AST ALT Alkaline Phosphatase Total Protein Albumin Influenza A (Rapid) Positive A Influenza B (Rapid) Negative RSV Rapid Positive A Current Medications Generic Name Dose Route Start Last Admin Trade Name Freq PRN Reason Stop Dose Admin Acetaminophen 650 mg 01/22/19 19:45 01/27/19 14:27 Tylenol - PO 650 mg Q6H PRN Administration PAIN LEVEL 1-5 Al Hydroxide/Mg Hydroxide 30 ml 01/23/19 19:32 01/23/19 19:53 Mylanta Oral Suspension - PO 30 ml Q6H PRN Administration DYSPEPSIA Atorvastatin Calcium 20 mg 01/22/19 22:00 01/26/19 22:04 Lipitor - PO 20 mg HS [facility] Administration Cyanocobalamin 100 mcg 01/27/19 10:00 01/27/19 09:34 Vitamin B12 - PO 100 mcg DAILY [facility] Administration Guaifenesin 10 ml 01/27/19 11:05 01/27/19 11:27 Robitussin - PO 10 ml Q6H PRN Administration COUGH Insulin Aspart 1 vial 01/22/19 22:00 02/27/19 11:26 Novolog Vial Sliding Scale - SQ 6 unit ACHS [facility] Administration Protocol Insulin Detemir 7 units 01/26/19 22:00 01/26/19 22:06 Levemir Vial SQ Not Given HS [facility] Lisinopril 2.5 mg 01/22/19 20:00 01/27/19 09:33 Prinivil PO 2.5 mg DAILY [facility] Administration Melatonin 10 mg 01/24/19 14:01 Melatonin PO HS PRN INSOMNIA Oseltamivir Phosphate 75 mg 01/27/19 14:00 Tamiflu - PO 02/01/19 13:59 BID [facility] Pantoprazole Sodium 40 mg 01/23/19 22:00 01/27/19 09:33 Protonix - PO 40 mg BID [facility] Administration Tramadol HCl 50 mg 01/27/19 11:05 Ultram - PO Q6H PRN PAIN LEVEL 6-10 ASSESSMENT AND PLAN: 59 year old female with history of gastric bypass with subsequent GI bleed due to anastomotic ulcers, history of ischemic colitis, DM 2, recent PE/LLE DVT on Eliquis, HTN, history of chronic diarrhea, opioid dependence, presented with L shoulder pain, found to have severe anemia. FOBT positive but patient on oral iron supplementation. 1. Microcytic anemia likely secondary to poor iron absorption due to gastric bypass surgery - EGD/[place] to rule out GI bleed. s/p EGD 01/25 - normal post-gastric bypass anatomy. Colonoscopy cancelled due to ongoing fever. H.H 9.2/29.9 s/p 2 units PRBCs Ferritin level 212 but this was checked after IV venofer and after blood transfusion. For re-attempt at Colonoscopy once acute illness resolves. No signs/symptoms of acute bleed currently. 2. Influenza A/RSV Infection - Fever 102.3 today. Hemodynamically stable. CXR - clear. BCx pending. Will start Tamiflu. 3. L supraspinatus tendon rupture - full thickness rupture with retraction/ partial biceps tear. Evaluated by Ortho - for out-patient evaluation for arthroscopic repair. 4. DM 2 with Hyperglycemia - resumed on Lantus. Poor compliance for past 2 weeks as per patient. 5. ELLA - due to dehydration. Resolved. 6. HTN - controlled. Continue Lisinopril. 7. Hx DVT/PE - will maintain on Lovenox pending Colonoscopy. 8. HLD - continue Statin. 9. Hypomagnesemia - repleted. DVT Px - Lovenox (pending resumption of Eliquis)
[2019-01-27] MEDS: OSELTAMIVIR PHOSPHATE 75 MG CAPSULE PO SCH ×2 (17:28→22:01)
[2019-01-27] MEDS: traMADol HCL 50 MG TABLET PO PRN (18:30)
--- NOTE | 2019-01-27 19:13 | CONS ---
DATE OF CONSULTATION: DATE OF DICTATION: 01/27/2019 INFECTIOUS DISEASE CONSULTATION HISTORY OF PRESENT ILLNESS: This is a 59-year-old female who was admitted on the with hypoglycemia and frequent falls. She was found to have anemia and hyperglycemia. She has been transfused and is status post upper endoscopy on the . Yesterday she developed a fever with T-max of 101. She also notes that she started coughing since she has arrived at the hospital. She denies any myalgias. She denies any abdominal pain, chest pain, and has no diarrhea or dysuria. As part of her fever workup last night, she had a chest x-ray done that was unremarkable, and I am asked to evaluate her for further recommendations. PAST MEDICAL HISTORY: Notable for history of hypertension, diabetes, anemia, DVT, PE. She has a history of COPD, morbid obesity. She has had ischemic colitis in the past, cholelithiasis, ELLA, anemia, anxiety, depression, chronic back pain, and left shoulder pain. She has a history of diabetes and left humeral fracture in August of 2018. She is status post laparoscopic gastric bypass in 2008, cholecystectomy, and she has had a left nasal polypectomy in 2012. SOCIAL HISTORY: There is no history of cigarette or substance use. She has no sick contacts or travel. She lives with her boyfriend. 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 She has no known drug allergies. MEDICATION: Her medicines at home include TriCor, insulin, multivitamins, Cymbalta, Feosol, Asacol, Eliquis, lisinopril, Pravachol, Januvia, metformin, calcium, magnesium oxide, Protonix. She herself reports it has been several months since she saw her provider, and she has not been taking care of herself. She has a known history of anemia, and does not take her iron. FAMILY HISTORY: Notable for leukemia in her brother, and her father had a heart attack in his 50s. REVIEW OF SYSTEMS: Notable for cough. PHYSICAL EXAMINATION: VITAL SIGNS: Temperature is 99.5, T-max was 101, pulse is 77, blood pressure 122/66, respiratory rate 18. She weighs 74 kg. HEENT: Normocephalic. Eyes are anicteric. NECK: Supple. LUNGS: Clear to auscultation. HEART: Regular rate and rhythm. ABDOMEN: Soft, nontender. EXTREMITIES: Without edema. LABORATORY: Notable for a white count of 2.7, hemoglobin 9.2, platelets of 232, BUN and creatinine are 7 and 0.9. Urinalysis is negative. Stool occult blood is positive. Chest x-ray shows no infiltrate, blood cultures are pending. IMPRESSION: 1. In summary, this is a 59-year-old woman who I suspect has a viral respiratory tract illness. I would check the differential on her complete blood count. I would repeat an influenza antigen as sensitivity is low with very high specificity of the rapid test. I would agree with respiratory syncytial virus and respiratory virus panel. Blood cultures are pending. Would observe off antibiotics at this time. 2. History of anemia. 3. History of diabetes. Further recommendations to follow. MARTIN ALLEN M.D. [id number]
[2019-01-27] MEDS: INSULIN (LEVEMIR) 100 UNITS/ML UNITS SQ SCH (22:00)
[2019-01-27] MEDS: ATORVASTATIN CA 20 MG TABLET (FP) PO SCH (22:01)
[2019-01-28] MEDS: traMADol HCL 50 MG TABLET PO PRN ×2 (06:00→12:06)
[2019-01-28] MEDS: INSULIN SLIDING SCALE (NOVOLOG) 1 VIAL SQ SCH ×2 (06:21→12:05)
[2019-01-28] MEDS ORDERED: INSULIN (NOVOLOG) ASPART 100 UNITS/ML 10ML VIAL ONE ×2 (06:56→12:00)
[2019-01-28] MEDS ORDERED: INSULIN (LEVEMIR) 100 UNITS/ML UNITS SQ SCH (07:31)
[2019-01-28 07:49] LABS: BASO % 1.1 % (0-2.0); EOS % 0.8 % (0-4.5); HEMATOCRIT 30.3 % (32.4-45.2); HEMOGLOBIN 9.3 GM/dL (10.7-15.3); LYMPH % 35.7 % (8-40); MCH 23.4 pg (25.7-33.7); MCHC 30.7 g/dl (32.0-36.0); MEAN CELL VOLUME 76.3 fl (80-96); MEAN PLT VOLUME 8.7 fl (7.5-11.1); MONO % 13.6 % (3.8-10.2); NEUT % 48.8 % (42.8-82.8); PLATELET COUNT 186 K/MM3 (134-434); RBC 3.97 M/mm3 (3.60-5.2); RDW 22.8 % (11.6-15.6); WHITE BLOOD COUNT 2.8 K/mm3 (4.0-10.0)
[2019-01-28 07:55] LABS: ALBUMIN 3.1 g/dl (3.4-5.0); ALK PHOS 37 U/L (45-117); ANION GAP 7 MMOL/L (8-16); BILIRUBIN,TOTAL 0.2 mg/dL (0.2-1); BLOOD UREA NITROGEN 13 mg/dL (7-18); CALCIUM 8.4 mg/dL (8.5-10.1); CHLORIDE 105 mmol/L (98-107); CO2 25 mmol/L (21-32); GLUCOSE,RANDOM 218 mg/dL (74-106); POTASSIUM 3.8 mmol/L (3.5-5.1); SGOT/AST 16 U/L (15-37); SGPT/ALT 20 U/L (13-61); SODIUM 136 mmol/L (136-145); TOT PROT 5.6 g/dl (6.4-8.2)
[2019-01-28 09:58] LABS: ANISOCYTOSIS 1+; MACROCYTOSIS 0; PLATELET ESTIMATE NORMAL
[2019-01-28] MEDS ORDERED: APIXABAN 5 MG TABLET PO SCH (10:00)
[2019-01-28 10:24] LABS: MAGNESIUM 1.6 mg/dL (1.8-2.4)
[2019-01-28] MEDS: OSELTAMIVIR PHOSPHATE 75 MG CAPSULE PO SCH (10:46)
[2019-01-28] MEDS: PANTOPRAZOLE 40 MG TABLET (FP) PO SCH (10:46)
[2019-01-28] MEDS: CYANOCOBALAMIN (VITAMIN B-12) 100 MCG TABLET PO SCH (10:46)
[2019-01-28] MEDS: LISINOPRIL 5 MG TABLET (FP) PO SCH (10:46)
--- NOTE | 2019-01-28 13:48 | PN ---
Teaching Attending Note Name of Resident: Radha Kwon ATTENDING PHYSICIAN STATEMENT I saw and evaluated the patient. I reviewed the resident's note and discussed the case with the resident. I agree with the resident's findings and plan as documented. SUBJECTIVE: Feels much better. Cough improving. No sputum/hemoptysis. No further fevers/chills. No abdominal pain/nausea/vomiting/melena/hematemesis/ hematochezia. OBJECTIVE: Currently afebrile, hemodynamically Stable - last fever yesterday at 102.3 Last Vital Signs Temp Pulse Resp BP Pulse Ox 99.1 F 105 H 20 121/51 L 98 01/28/19 09:00 01/28/19 09:00 01/28/19 09:00 01/28/19 09:00 01/27/19 22:00 HEENT - Atraumatic, Normocephalic. Heart - S1, S2, RRR Lungs - clear to auscultation Abdomen - Soft, non-tender. Bowel Sounds normal. Extremities - no edema, no calf tenderness. Laboratory Results - last 24 hr 01/27/19 01/27/19 01/28/19 16:48 21:58 06:03 WBC RBC Hgb Hct MCV MCH MCHC RDW Plt Count MPV Absolute Neuts (auto) Neutrophils % Lymphocytes % Monocytes % Eosinophils % Basophils % Nucleated RBC % Hypochromia Platelet Estimate Polychromasia Poikilocytosis Anisocytosis Microcytosis Macrocytosis Sodium Potassium Chloride Carbon Dioxide Anion Gap BUN Creatinine Creat Clearance w eGFR POC Glucometer 295 252 220 Random Glucose Calcium Magnesium Total Bilirubin AST ALT Alkaline Phosphatase Total Protein Albumin 01/28/19 01/28/19 01/28/19 06:50 06:50 12:04 WBC 2.8 L RBC 3.97 Hgb 9.3 L Hct 30.3 L MCV 76.3 L MCH 23.4 L MCHC 30.7 L RDW 22.8 H Plt Count 186 MPV 8.7 Absolute Neuts (auto) 1.4 L Neutrophils % 48.8 Lymphocytes % 35.7 D Monocytes % 13.6 H D Eosinophils % 0.8 Basophils % 1.1 Nucleated RBC % 0 Hypochromia 1+ Platelet Estimate Normal Polychromasia 1+ Poikilocytosis 1+ Anisocytosis 1+ Microcytosis 1+ Macrocytosis 0 Sodium 136 Potassium 3.8 Chloride 105 Carbon Dioxide 25 Anion Gap 7 L BUN 13 Creatinine 1.0 Creat Clearance w eGFR 56.56 POC Glucometer 250 Random Glucose 218 H Calcium 8.4 L Magnesium 1.6 L Total Bilirubin 0.2 AST 16 ALT 20 Alkaline Phosphatase 37 L Total Protein 5.6 L Albumin 3.1 L Current Medications Generic Name Dose Route Start Last Admin Trade Name Freq PRN Reason Stop Dose Admin Acetaminophen 650 mg 01/22/19 19:45 01/27/19 19:45 Tylenol - PO 650 mg Q6H PRN Administration PAIN LEVEL 1-5 Al Hydroxide/Mg Hydroxide 30 ml 01/23/19 19:32 01/23/19 19:53 Mylanta Oral Suspension - PO 30 ml Q6H PRN Administration DYSPEPSIA Apixaban 5 mg 01/28/19 10:00 01/28/19 10:46 Eliquis - PO 5 mg BID YAMILKA Administration Atorvastatin Calcium 20 mg 01/22/19 22:00 01/27/19 22:01 Lipitor - PO 20 mg HS YAMILKA Administration Cyanocobalamin 100 mcg 01/27/19 10:00 01/28/19 10:46 Vitamin B12 - PO 100 mcg DAILY YAMILKA Administration Guaifenesin 10 ml 01/27/19 11:05 01/27/19 19:47 Robitussin - PO 10 ml Q6H PRN Administration COUGH Insulin Aspart 1 vial 01/22/19 22:00 01/28/19 12:05 Novolog Vial Sliding Scale - SQ 4 units ACHS YAMILKA Administration Protocol Insulin Detemir 14 units 01/28/19 07:31 Levemir Vial SQ HS YAMILKA Lisinopril 2.5 mg 01/22/19 20:00 01/28/19 10:46 Prinivil PO 2.5 mg DAILY YAMILKA Administration Melatonin 10 mg 01/24/19 14:01 01/27/19 22:01 Melatonin PO 10 mg HS PRN Administration INSOMNIA Oseltamivir Phosphate 75 mg 01/27/19 14:00 01/28/19 10:46 Tamiflu - PO 02/01/19 13:59 75 mg BID YAMILKA Administration Pantoprazole Sodium 40 mg 01/23/19 22:00 01/28/19 10:46 Protonix - PO 40 mg BID YAMILKA Administration Tramadol HCl 50 mg 01/27/19 11:05 01/28/19 12:06 Ultram - PO 50 mg Q6H PRN Administration PAIN LEVEL 6-10 ASSESSMENT AND PLAN: 59 year old female with history of gastric bypass with subsequent GI bleed due to anastomotic ulcers, history of ischemic colitis, DM 2, recent PE/LLE DVT on Eliquis, HTN, history of chronic diarrhea, opioid dependence, presented with L shoulder pain, found to have severe anemia. FOBT positive but patient on oral iron supplementation. 1. Microcytic anemia likely secondary to poor iron absorption due to gastric bypass surgery s/p EGD 01/25 - normal post-gastric bypass anatomy. To follow with GI for Colonoscopy as out-patient. H.H 9.3/30.3 s/p 2 units PRBCs Ferritin level 212 but this was checked after IV venofer and after blood transfusion. No signs/symptoms of acute bleed currently. H/H Stable - medically stable for discharge with out-patient GI follow up. 2. Influenza A/RSV Infection - Currently afebrile, Hemodynamically stable. CXR - clear. BCx negative. Continue Tamiflu for total 5 days. 3. L supraspinatus tendon rupture - full thickness rupture with retraction/ partial biceps tear. Evaluated by Ortho - for out-patient Ortho follow up and evaluation for arthroscopic repair. 4. DM 2 with Hyperglycemia - resumed on Lantus. Poor compliance for past 2 weeks as per patient. Counselled regarding importance of medication compliance. 5. ELLA - due to dehydration. Resolved. 6. HTN - controlled. Continue Lisinopril. 7. Hx DVT/PE - resume Eliquis 8. HLD - continue Statin. 9. Hypomagnesemia - will replete. Medically stable for discharge with GI and Ortho follow up.
[2019-01-28] MEDS ORDERED: MAGNESIUM SULF 50% (8.12 MEQ/2 ML-1 GM VIAL) IVPB STA (13:56)
[2019-01-28 14:03] VITALS: BP 123/56; PULSE 69; TEMP 99.3
--- NOTE | 2019-01-28 15:15 | DS ---
Physical Exam: SUBJECTIVE: Patient seen this morning and reports she is feeling better. Afebrile overnight. OBJECTIVE: Vital Signs Temperature 99.3 F 01/28/19 14:02 Pulse Rate 69 01/28/19 14:02 Respiratory Rate 20 01/28/19 14:02 Blood Pressure 123/56 L 01/28/19 14:02 O2 Sat by Pulse Oximetry (%) 98 01/28/19 09:00 PHYSICAL EXAM GENERAL: The patient is awake, alert, and fully oriented, in no acute distress. HEAD: Normal with no signs of trauma. EYES: PERRL, extraocular movements intact LUNGS: Breath sounds equal, clear to auscultation bilaterally, HEART: Regular rate and rhythm, S1, S2 without murmur, rub or gallop. ABDOMEN: Soft, nontender, nondistended, normoactive bowel sounds, EXTREMITIES: 2+ pulses, warm, well-perfused, no edema. L shoulder tender to palpation, negative homans sign PSYCH: Normal mood, normal affect. SKIN: Warm, dry, normal turgor, no rashes or lesions noted LABS CBC, BMP 01/28/19 06:50 01/28/19 06:50 HOSPITAL COURSE: Date of Admission:01/23/19 Patient was admitted to the hospital for a fall. While she was admitted she was found to be anemic and received two units of packed red blood cells. Gi evaluated her and did an endoscopy. It did not find any bleeding ulcers. Her hemoglobin remained stable while here. She received iron transfusions. Imaging of her shoulder was done and she was found to have a complete supraspinatus tear. She was evaluated by Orthopedics who will follow up with her as an outpatient. Surgery not indicated at this time. While she was here she was influenza A and RSV positive. UCX positive but low colony count and patient asymptomatic. She was treated with tamiflu and sent home on tamiflu. Patient was afebrile for 24 hours. Vitals and labs stable for discharged home. Patients elliquis resumed upon discharge. endocsopy: ulcers at anastamosis, gastric pouch normal, esophagus without ulcers , small bowel multiple non bleeding ulcers Chest XR: negative for any acute processes MRI of left upper extremity:full thickness supraspinatus tear with 3 cm retraction and fluid retention in the subacromial, subdeltoid burs RSV and influenza A positive Date of Discharge: 01/28/19 Minutes to complete discharge: 50 Discharge Summary Reason For Visit: ANEMIA Current Active Problems Anemia (Chronic) Status post gastric bypass for obesity (Chronic) Condition: Improved - Instructions Diet, Activity, Other Instructions: You were admitted to the hospital for pain in your shoulder. We did imaging of your shoulder and you have a rupture in one of your tendons. An Orthopedic doctor evaluated you and thinks you need an arthroscopy done. Please make an appointment with the Orthopedic surgeon, Dr. Yu within one week to have any procedures done and to follow up with your shoulder pain. While you were here you were found to have anemia (low hemoglobin). We did an endoscopy to make sure you did not have any bleeding in your esophagus, stomach , or colon. The imaging did not find anything abnormal. You should continue to follow with Dr. Sanon in one week. You should schedule a colonoscopy to do with him as an outpatient. You were also found to have the flu while in the hospital. We treated you with tamiflu. To complete treatment of the flu please take: Tamiflu 75 mg by mouth twice a day for three more days Please make an appointment with Dr. Kwon to follow up within one week. Please continue your home medications as prescribed. Return to the hospital if you have any nausea, vomiting, diarrhea, chest pain, shortness of breath, or headaches. Referrals: [facility] [place] [facility] [place] [[place] Group] Johnson Sanon DO [Staff Physician] - Radha Kwon RES [Resident] - Disposition: HOME - Home Medications Comprehensive Discharge Medication List: Ambulatory Orders Duloxetine HCl [Cymbalta] 30 mg PO DAILY 06/25/18 Ferrous Sulfate [Feosol] 325 mg PO DAILY #30 ud 07/15/18 Apixaban [Eliquis] 5 mg PO BID #60 tablet 08/06/18 Lisinopril 2.5 mg PO DAILY #30 tablet 08/06/18 Pravastatin Sodium [Pravachol -] 80 mg PO HS 09/07/18 Pantoprazole Sodium [Protonix -] 40 mg PO DAILY #30 tablet.ec 09/16/18 Insulin Glargine,Hum.rec.anlog [Lantus] 14 unit SQ HS 01/25/19 Oseltamivir Phosphate [Tamiflu] 75 mg PO BID #6 capsule 01/28/19 This patient is new to me today: No Emergency Visit: No Critical Care patient: No - Discharge Referral Referred to [facility] No
--- NOTE | 2019-01-28 17:02 | PN ---
Progress Note (short form) - Note Progress Note: Colonoscopy has been postponed due to fevers. Patient tested + for influenza. Explained to her that she was extremely anemic with blood detected in her stool and that colonoscopy would be prudent to exclude potential bleeding source such as polyps, blood vessels, cancers. States that she does not want to have it performed at this time and wants to follow-up as an outpatient. I explained that she has failed to follow-up and missed several outpatient appointments when she has made them in the past. I stressed the importance of outpatient follow-up.
[2019-01-29 04:15] LABS: SERUM IRON SATURATION 13 % (15-55); TOTAL IRON BINDING CAPACITY 357 ug/dL (250-450); UIBC 312 ug/dL (131-425)
== END 2019-01-28 17:00 | disposition home or self-care (01) | DRG 663 ==
LOC: JER 12:42 → JERBED 16:13 → J7W 20:29 → OBSVTOIN 01-23 10:34 → J6S 01-27 15:28
PROVIDERS: ADMIT Internal Medicine
PROC: 30233N1 Transfusion of Nonautologous Red Blood Cells into Peripheral Vein, Percutaneous Approach (ICD-10-PCS; 2019-01-22)
PROC: 0DJ08ZZ Inspection of Upper Intestinal Tract, Via Natural or Artificial Opening Endoscopic (ICD-10-PCS; principal; 2019-01-25 15:00)
DX: D50.0 Iron deficiency anemia secondary to blood loss (chronic) (principal); E11.65 Type 2 diabetes mellitus with hyperglycemia; N17.9 Acute kidney failure, unspecified; E86.0 Dehydration; I10 Essential (primary) hypertension; E78.5 Hyperlipidemia, unspecified; E83.42 Hypomagnesemia; D72.819 Decreased white blood cell count, unspecified; R50.9 Fever, unspecified; M25.512 Pain in left shoulder; M54.9 Dorsalgia, unspecified; M66.9 Spontaneous rupture of unspecified tendon; Z79.4 Long term (current) use of insulin; K21.9 Gastro-esophageal reflux disease without esophagitis; R63.0 Anorexia; F11.20 Opioid dependence, uncomplicated; K63.3 Ulcer of intestine; J09.X2 Influenza due to identified novel influenza A virus with other respiratory manifestations
CPT/HCPCS: 36415; 36430; 71045-TC-FY; 71046-TC-FY; 72070-TC-FY; 72100-TC-FY; 73030-TC-LT-FY; 73221-TC-LT; 80048; 80053; 80307; 81003; 82009; 82272; 82728; 82962; 83036; 83540; 83550; 83735; 84100; 84443; 85025; 85027; 85610; 86850; 86870; 86900; 86901; 86902; 86922; 87040; 87086; 87186; 87633; 87804; 87807; 93005; 93010; 96365; 97116-GP; 97161-GP; 99283-25; G0378; J1756; J7030; P9038; P9058

== ENCOUNTER 2019-02-01 10:20 | Observation (INO) | payer OTHER ==
[2019-02-01 10:57] LABS: URINE APPEARANCE CLEAR; URINE BILIRUBIN NEGATIVE (<2.0 mg/dL); URINE COLOR LTYELLOW; URINE GLUCOSE (UA) 3+ (NEGATIVE); URINE KETONE NEGATIVE (NEGATIVE); URINE LEUK ESTERASE NEGATIVE (NEGATIVE); URINE NITRITE NEGATIVE (NEGATIVE); URINE PROTEIN NEGATIVE (NEGATIVE); URINE UROBILINOGEN NEGATIVE mg/dL (0.2-1.0)
--- NOTE | 2019-02-01 11:22 | PDOC ---
History of Present Illness - General History Source: Patient, Old Records Exam Limitations: No Limitations - History of Present Illness Initial Comments: 02/01/19 12:08 The patient is a 59 year old female with a past medical history of anemia, diabetes, GERD, hypertension, hyperlipidemia, gastric bypass, multiple DVT, and pulmonary embolism status post IVC filter brought in today by EMS for evaluation of altered mental status and hyperglycemia. History is limited as patient is only able to say the words "hi" and "no". Patient denies pain or fevers. Allergies: NKA PCP: Dianne Adams <Rory Masters - Last Filed: 02/01/19 13:39> - General History Source: Patient Exam Limitations: No Limitations <Eric Lancaster - Last Filed: 02/03/19 10:43> - General Chief Complaint: Altered Mental Status Stated Complaint: AMS,High Blood Sugar Time Seen by Provider: 02/01/19 10:55 Past History <Rory Masters - Last Filed: 02/01/19 13:39> - Past Medical History Anemia: Yes Asthma: No Cancer: No Cardiac Disorders: No CVA: No COPD: No CHF: No Dementia: Yes Diabetes: Yes (iddm) GI Disorders: Yes (GERD) Disorders: No HTN: Yes Hypercholesterolemia: Yes Liver Disease: No Seizures: No Thyroid Disease: No - Surgical History Abdominal Surgery: No Appendectomy: No Cardiac Surgery: No Cholecystectomy: Yes Gastric Stapling: No (BYPASS) Lung Surgery: No Neurologic Surgery: No Orthopedic Surgery: No - Immunization History Immunization Up to Date: Yes - Suicide/Smoking/Psychosocial Hx Smoking Status: No Smoking History: Smoker current status UNK Have you smoked in the past 12 months: No Number of Cigarettes Smoked Daily: 0 'Breaking Loose' booklet given: 01/22/19 Hx Alcohol Use: No Drug/Substance Use Hx: Yes Substance Use Type: Opiates Hx Substance Use Treatment: No <Eric Lancaster - Last Filed: 02/03/19 10:43> - Past Medical History Allergies/Adverse Reactions: Allergies Allergy/AdvReac Type Severity Reaction Status Date / Time No Known Allergies Allergy Verified 09/06/18 15:25 Home Medications: Ambulatory Orders Duloxetine HCl [Cymbalta] 30 mg PO DAILY 06/25/18 Ferrous Sulfate [Feosol] 325 mg PO DAILY #30 ud 07/15/18 Apixaban [Eliquis] 5 mg PO BID #60 tablet 08/06/18 Lisinopril 2.5 mg PO DAILY #30 tablet 08/06/18 Pravastatin Sodium [Pravachol -] 80 mg PO HS 09/07/18 Pantoprazole Sodium [Protonix -] 40 mg PO DAILY #30 tablet.ec 09/16/18 Insulin Glargine,Hum.rec.anlog [Lantus] 14 unit SQ HS 01/25/19 Review of Systems - Review of Systems Able to Perform ROS?: No Comments:: 02/01/19 12:12 ROS limited due to patient's responses <Rory Masters - Last Filed: 02/01/19 13:39> *Physical Exam - Vital Signs Last Vital Signs Temp Pulse Resp BP Pulse Ox 98.1 F 61 18 132/50 L 100 02/01/19 10:26 02/01/19 10:26 02/01/19 10:02/01/19 10:02/01/19 10:26 <Rory Masters - Last Filed: 02/01/19 13:39> - Vital Signs Last Vital Signs Temp Pulse Resp BP Pulse Ox 98.1 F 61 18 132/50 L 100 02/01/19 10:26 02/01/19 10:02/01/19 10:02/01/19 10:02/01/19 10:26 - Physical Exam General Appearance: Yes: Nourished. No: Apparent Distress HEENT: positive: EOMI, Normal ENT Inspection, Normal Voice Neck: positive: Supple Respiratory/Chest: positive: Lungs Clear, Normal Breath Sounds. negative: Respiratory Distress, Accessory Muscle Use Cardiovascular: positive: Regular Rhythm, Regular Rate, S1, S2. negative: Edema , Murmur Gastrointestinal/Abdominal: positive: Flat, Soft. negative: Tender, Organomegaly, Pulsatile Mass Musculoskeletal: positive: Normal Inspection Extremity: positive: Normal Inspection, Normal Range of Motion, Pelvis Stable. negative: Tender Integumentary: positive: Normal Color, Warm Neurologic: positive: receivable manager II-XII NML intact, Alert, Normal Response, Motor Strength 5/5, Confused <Eric Lancaster - Last Filed: 02/03/19 10:43> Moderate Sedation - Procedure Monitoring Vital Signs: Procedure Monitoring Vital Signs Temperature 98.1 F 02/01/19 10:26 Pulse Rate 61 02/01/19 10:26 Respiratory Rate 18 02/01/19 10:26 Blood Pressure 132/50 L 02/01/19 10:26 O2 Sat by Pulse Oximetry (%) 100 02/01/19 10:26 <Rory Masters - Last Filed: 02/01/19 13:39> - Procedure Monitoring Vital Signs: Procedure Monitoring Vital Signs Temperature 98.1 F 02/01/19 10:26 Pulse Rate 61 02/01/19 10:26 Respiratory Rate 18 02/01/19 10:26 Blood Pressure 132/50 L 02/01/19 10:26 O2 Sat by Pulse Oximetry (%) 100 02/01/19 10:26 <Eric Lancaster - Last Filed: 02/03/19 10:43> Heart Score/ECG Review #1 ECG reviewed & interpreted by me at: 10:30 02/01/19 12:05 NSR 70, occasional PVCs, low voltage QRS, nonspecific ST abnormality, QTC 449 msec <Eric Lancaster - Last Filed: 02/03/19 10:43> ED Treatment Course - LABORATORY CBC & Chemistry Diagram: 02/01/19 11:35 02/01/19 11:35 - ADDITIONAL ORDERS Additional order review: Laboratory Results 02/01/19 02/01/19 02/01/19 11:35 11:35 10:46 POC Glucometer Ammonia < 10.00 L Urine Color Urine Appearance Urine pH Ur Specific [place] Urine Protein Urine Glucose (UA) Urine Ketones Urine Blood Urine Nitrite Urine Bilirubin Urine Urobilinogen Ur Leukocyte Esterase Stool Occult Blood Opiates Screen Negative Methadone Screen Negative Barbiturate Screen Negative Phencyclidine Screen Negative Ur Amphetamines Screen Negative MDMA (Ecstasy) Screen Negative Benzodiazepines Screen Negative Cocaine Screen Negative U Marijuana (THC) Screen Negative Acetone, Qual Negative L 02/01/19 02/01/19 02/01/19 10:46 10:45 10:29 POC Glucometer 387 Ammonia Urine Color Ltyellow Urine Appearance Clear Urine pH 5.0 Ur Specific [place] 1.022 Urine Protein Negative Urine Glucose (UA) 3+ H Urine Ketones Negative Urine Blood Negative Urine Nitrite Negative Urine Bilirubin Negative Urine Urobilinogen Negative Ur Leukocyte Esterase Negative Stool Occult Blood Positive Opiates Screen Methadone Screen Barbiturate Screen Phencyclidine Screen Ur Amphetamines Screen MDMA (Ecstasy) Screen Benzodiazepines Screen Cocaine Screen U Marijuana (THC) Screen Acetone, Qual 02/01/19 02/01/19 11:35 10:29 RBC 4.08 MCV 78.4 L MCHC 31.5 L RDW 24.5 H MPV 9.1 Neutrophils % 60.7 D Lymphocytes % 30.5 Monocytes % 7.2 Eosinophils % 1.0 Basophils % 0.6 POC Glucometer 387 <Rory Masters - Last Filed: 02/01/19 13:39> - LABORATORY CBC & Chemistry Diagram: 02/02/19 05:30 02/02/19 05:30 - ADDITIONAL ORDERS Additional order review: Laboratory Results 02/01/19 02/01/19 02/01/19 10:46 10:45 10:29 POC Glucometer 387 Urine Color Ltyellow Urine Appearance Clear Urine pH 5.0 Ur Specific [place] 1.022 Urine Protein Negative Urine Glucose (UA) 3+ H Urine Ketones Negative Urine Blood Negative Urine Nitrite Negative Urine Bilirubin Negative Urine Urobilinogen Negative Ur Leukocyte Esterase Negative Stool Occult Blood Positive 02/01/19 10:29 POC Glucometer 387 - RADIOLOGY Radiology Studies Ordered: Category Date Time Status HEAD CT WITHOUT CONTRAST [CT] Stat CT Scan 02/01/19 11:11 Ordered CHEST X-RAY PORTABLE* [RAD] Stat Radiology 02/01/19 11:11 Ordered <Eric Lancaster - Last Filed: 02/03/19 10:43> Medical Decision Making - Medical Decision Making 02/01/19 11:44 A portion of this note was documented by scribe services under my direction. I have reviewed the details of the note, within reason, and agree with the documentation with the following case summary and management plan written by me. Patient treated in the ED. Nursing notes are reviewed and incorporated into the medical decision-making. Vital signs reviewed. Peripheral IV access obtained by the nurse, laboratory studies are drawn and sent, reviewed and interpreted by myself. Vital Signs Temp Pulse Resp BP Pulse Ox 98.1 F 61 18 132/50 L 100 02/01/19 10:26 02/01/19 10:26 02/01/19 10:26 02/01/19 10:26 02/01/19 10:26 59-year-old female patient with history of anemia, diabetes, GERD, hypertension , hyperlipidemia, gastric bypass, multiple DVT, pulmonary embolism status post IVC filter, brought in by EMS for altered mental status and hyperglycemia.The history is limited as the patient is unable to provide a history. The patient is alert but answers my questions inappropriately i.e., "Where are you now, Ms. Knox?". She responds, "Hi!", or "No." and proceeds to smile. The patient denies any pain or fevers. I had tried to contact the pt's phone numbers listed in her chart, but they were either incorrect or goes straight to voicemail. It is unclear what this altered mental status is. According to EMS, the pt's partner (boyfriend) had called 911, but we are unable to get a hold of. Fortunately, the [facility] inpatient team was rounding on other patients, and one of the residents recognized her. States that Dr. Wilton Hagen knows her very well. I will reach out to her. In the meantime, will obtain a head CT, labs, tylenol, salyclicate, drug screen , UA/UC, chest xray and admit. 02/01/19 13:[address] with no changes. CBC, BMP 02/01/19 11:35 02/01/19 11:35 CMP Sodium 138 mmol/L (136-145) 02/01/19 11:35 Potassium 4.7 mmol/L (3.5-5.1) 02/01/19 11:35 Chloride 106 mmol/L (98-107) 02/01/19 11:35 Carbon Dioxide 25 mmol/L (21-32) 02/01/19 11:35 Anion Gap 7 MMOL/L (8-16) L 02/01/19 11:35 BUN 40 mg/dL (7-18) H 02/01/19 11:35 Creatinine 1.3 mg/dL (0.55-1.3) 02/01/19 11:35 Creat Clearance w eGFR 41.78 (>60) 02/01/19 11:35 POC Glucometer 387 UNITS (80-120) 02/01/19 10:29 Random Glucose 367 mg/dL (74-106) H* 02/01/19 11:35 Lactic Acid 2.4 mmol/L (0.4-2.0) H* 02/01/19 11:35 Calcium 9.1 mg/dL (8.5-10.1) 02/01/19 11:35 Phosphorus 3.2 mg/dL (2.5-4.9) 02/01/19 11:35 Magnesium 1.9 mg/dL (1.8-2.4) 02/01/19 11:35 Total Bilirubin 0.3 mg/dL (0.2-1) 02/01/19 11:35 AST 12 U/L (15-37) L 02/01/19 11:35 ALT 22 U/L (13-61) 02/01/19 11:35 Alkaline Phosphatase 33 U/L (45-117) L 02/01/19 11:35 Ammonia < 10.00 umol/L (11-32) L 02/01/19 11:35 Creatine Kinase 22 U/L (26-192) L 02/01/19 11:35 Troponin I < 0.02 ng/ml (0.00-0.05) 02/01/19 11:35 Total Protein 7.5 g/dl (6.4-8.2) 02/01/19 11:35 Albumin 3.7 g/dl (3.4-5.0) 02/01/19 11:35 Urine Test Results Urine Color Ltyellow 02/01/19 10:45 Urine Appearance Clear 02/01/19 10:45 Urine pH 5.0 (5.0-8.0) 02/01/19 10:45 Ur Specific [place] 1.022 (1.010-1.035) 02/01/19 10:45 Urine Protein Negative (NEGATIVE) 02/01/19 10:45 Urine Glucose (UA) 3+ (NEGATIVE) H 02/01/19 10:45 Urine Ketones Negative (NEGATIVE) 02/01/19 10:45 Urine Blood Negative (NEGATIVE) 02/01/19 10:45 Urine Nitrite Negative (NEGATIVE) 02/01/19 10:45 Urine Bilirubin Negative (<2.0 mg/dL) 02/01/19 10:45 Ur Leukocyte Esterase Negative (NEGATIVE) 02/01/19 10:45 I have spoken to the pt's PMD. She reports that the patient is typically not altered like this. Will admit patient for further evaluation for AMS as it is unclear what the etiology is. Case discussed with [facility] hospitalist. Will admit to med/surg obs. Case discussed in detail with admitting physician including history, physical exam and ancillary studies. Admitting physician has assumed care for the patient, will follow all pending diagnostics and will complete the evaluation and treatment. <Eric Lancaster - Last Filed: 02/03/19 10:43> *DC/Admit/Observation/Transfer - Attestations Scribe Attestion: 02/01/19 12:12 Documentation prepared by DOMINIK Rivera, acting as claim review medical director for Eric Lancaster MD. <Rory Masters - Last Filed: 02/01/19 13:39> - Discharge Dispostion Decision to Admit order: Yes <Eric Lancaster - Last Filed: 02/03/19 10:43> Diagnosis at time of Disposition: Altered mental status - Discharge Dispostion Disposition: HOME Condition at time of disposition: Improved
[2019-02-01 11:43] LABS: COCAINE, UR NEGATIVE ng/ml (CUTOFF=300); METHADONE, UR NEGATIVE ng/ml (CUTOFF=300); OPIATES, URI NEGATIVE ng/ml (CUTOFF=300); PHENCYCLIDINE,URINE NEGATIVE ng/ml (CUTOFF=25); URINE AMPHETAMINES NEGATIVE ng/ml (CUTOFF=500); URINE BARBITURATES NEGATIVE ng/ml (CUTOFF=200); URINE BENZODIAZEPINES NEGATIVE ng/ml (CUTOFF=200)
[2019-02-01 11:47] LABS: BASO % 0.6 % (0-2.0); HEMOGLOBIN 10.1 GM/dL (10.7-15.3); LYMPH % 30.5 % (8-40); MCH 24.7 pg (25.7-33.7); MCHC 31.5 g/dl (32.0-36.0); MEAN CELL VOLUME 78.4 fl (80-96); MEAN PLT VOLUME 9.1 fl (7.5-11.1); MONO % 7.2 % (3.8-10.2); NEUT % 60.7 % (42.8-82.8); PLATELET COUNT 205 K/MM3 (134-434); RBC 4.08 M/mm3 (3.60-5.2); RDW 24.5 % (11.6-15.6); WHITE BLOOD COUNT 4.4 K/mm3 (4.0-10.0)
[2019-02-01 12:13] LABS: ALBUMIN 3.7 g/dl (3.4-5.0); ALK PHOS 33 U/L (45-117); ANION GAP 7 MMOL/L (8-16); BILIRUBIN,TOTAL 0.3 mg/dL (0.2-1); BLOOD UREA NITROGEN 40 mg/dL (7-18); CALCIUM 9.1 mg/dL (8.5-10.1); CHLORIDE 106 mmol/L (98-107); CO2 25 mmol/L (21-32); CREATININE 1.3 mg/dL (0.55-1.3); MAGNESIUM 1.9 mg/dL (1.8-2.4); PHOSPHOROUS 3.2 mg/dL (2.5-4.9); POTASSIUM 4.7 mmol/L (3.5-5.1); SGOT/AST 12 U/L (15-37); SGPT/ALT 22 U/L (13-61); SODIUM 138 mmol/L (136-145); TOT PROT 7.5 g/dl (6.4-8.2)
[2019-02-01 12:16] LABS: GLUCOSE,RANDOM 367 mg/dL (74-106)
[2019-02-01] MEDS ORDERED: SODIUM CHLORIDE 0.9% 500 ML INFUS.BAG IV ONE ×2 (12:17→14:10)
[2019-02-01 12:48] LABS: INR 1.15 (0.83-1.09); PROTHROMBIN TIME (PATIENT) 13.6 SEC (9.7-13.0)
[2019-02-01 12:50] LABS: ACTIVATED PTT 26.8 SECONDS (25.2-36.5)
--- NOTE | 2019-02-01 13:58 | EKG ---
Test Reason : Blood Pressure : / mmHG Vent. Rate : 070 BPM Atrial Rate : 070 BPM P-R Int : 134 ms QRS Dur : 074 ms QT Int : 416 ms P-R-T Axes : 010 051 051 degrees QTc Int : 449 ms SINUS RHYTHM WITH PREMATURE SUPRAVENTRICULAR COMPLEXES LOW VOLTAGE QRS NONSPECIFIC ST ABNORMALITY ABNORMAL ECG WHEN COMPARED WITH ECG OF 22-JAN-2019 13:15, NO SIGNIFICANT CHANGE WAS FOUND Confirmed by DIDI TARANGO, INDIO ([id number]) on 02/01/2019 1:58:23 PM Referred By: Confirmed By:INDIO TOLBERT MD
[2019-02-01 14:45] LABS: ANISOCYTOSIS 2+; MACROCYTOSIS 0; PLATELET ESTIMATE NORMAL
[2019-02-01] MEDS ORDERED: INSULIN (NOVOLOG) ASPART 100 UNITS/ML 10ML VIAL SQ ONE ×2 (14:55→15:44)
--- NOTE | 2019-02-01 15:25 | HP ---
CHIEF COMPLAINT: AMS PCP: Dr. Radha Kwon / Dr. 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 She presents to the ER for altered mental status. Ambulance called in by boyfriend. History was difficult to obtain as pt is pleasantly altered. She says she feels "good" but otherwise only says "no" or "yes" to most other questions asked. She is not consistent with her yes/no answers either. She is AAOX2. She knows her name, that she's in a hospital, but does not know the year or president. 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 Gastric bypass Social History: Smoking: from previous charts is not a smoker Alcohol:from previous charts is not a drinker Drugs: hx of opioid abuse Family History: unable to obtain Allergies No Known Allergies Allergy (Verified 09/06/18 15:25) HOME MEDICATIONS: Home Medications Medication Instructions Recorded Duloxetine HCl [Cymbalta] 30 mg PO DAILY 06/25/18 Ferrous Sulfate [Feosol] 325 mg PO DAILY #30 ud 07/15/18 Apixaban [Eliquis] 5 mg PO BID #60 tablet 08/06/18 Lisinopril 2.5 mg PO DAILY #30 tablet 08/06/18 Pravastatin Sodium [Pravachol -] 80 mg PO HS 09/07/18 Pantoprazole Sodium [Protonix -] 40 mg PO DAILY #30 tablet.ec 09/16/18 Insulin Glargine,Hum.rec.anlog 14 unit SQ HS 01/25/19 [Lantus] REVIEW OF SYSTEMS unable to obtain due to AMS PHYSICAL EXAMINATION Vital Signs - 24 hr 02/01/19 02/01/19 10:26 14:29 Temperature 98.1 F Pulse Rate 61 61 Respiratory 18 16 Rate Blood Pressure 132/50 L 117/50 L O2 Sat by Pulse 100 100 Oximetry (%) GENERAL: Awake, alert, and oriented x2 (person, place). In no acute distress. Only following some basic commands. HEAD: Normal with no signs of trauma. EYES: extraocular movements intact, sclera anicteric EARS, NOSE, THROAT: Ears normal, nares patent NECK: Normal range of motion, supple. No neck tenderness. LUNGS: Poor inspiratory effort. No wheezing or crackles heard. HEART: Regular rate and rhythm, normal S1 and S2 ABDOMEN: Soft, obese, nontender, not distended, normoactive bowel sounds, no guarding, no rebound, no masses. LOWER EXTREMITIES: warm, well-perfused. No calf tenderness. No peripheral edema. NEUROLOGICAL: Pt not following most basic commands. Did not stick out tongue, smile, extend arms, lift legs. She has 5/5 b/l UE sat act instructor strength. No facial asymmetry noted. PSYCHIATRIC: Non-cooperative but pleasant. SKIN: Warm, dry. Scratch on R forearm, not infected, not erythematous, healing. Laboratory Results - last 24 hr 02/01/19 02/01/19 02/01/19 10:29 10:45 10:46 WBC RBC Hgb Hct MCV MCH MCHC RDW Plt Count MPV Absolute Neuts (auto) Neutrophils % Lymphocytes % Monocytes % Eosinophils % Basophils % Nucleated RBC % Hypochromia Platelet Estimate Polychromasia Poikilocytosis Anisocytosis Microcytosis Macrocytosis PT with INR INR PTT (Actin FS) Sodium Potassium Chloride Carbon Dioxide Anion Gap BUN Creatinine Creat Clearance w eGFR POC Glucometer 387 Random Glucose Lactic Acid Calcium Phosphorus Magnesium Total Bilirubin AST ALT Alkaline Phosphatase Ammonia Creatine Kinase Troponin I Total Protein Albumin Urine Color Ltyellow Urine Appearance Clear Urine pH 5.0 Ur Specific [place] 1.022 Urine Protein Negative Urine Glucose (UA) 3+ H Urine Ketones Negative Urine Blood Negative Urine Nitrite Negative Urine Bilirubin Negative Urine Urobilinogen Negative Ur Leukocyte Esterase Negative Stool Occult Blood Positive Salicylates Opiates Screen Methadone Screen Acetaminophen Barbiturate Screen Phencyclidine Screen Ur Amphetamines Screen MDMA (Ecstasy) Screen Benzodiazepines Screen Cocaine Screen U Marijuana (THC) Screen Acetone, Qual 02/01/19 02/01/19 02/01/19 10:46 11:35 11:35 WBC 4.4 RBC 4.08 Hgb 10.1 L Hct 32.0 L MCV 78.4 L MCH 24.7 L MCHC 31.5 L RDW 24.5 H Plt Count 205 MPV 9.1 Absolute Neuts (auto) 2.7 Neutrophils % 60.7 D Lymphocytes % 30.5 Monocytes % 7.2 Eosinophils % 1.0 Basophils % 0.6 Nucleated RBC % 0 Hypochromia 1+ Platelet Estimate Normal Polychromasia 1+ Poikilocytosis 0 Anisocytosis 2+ Microcytosis 0 Macrocytosis 0 PT with INR 13.60 H INR 1.15 H PTT (Actin FS) 26.8 Sodium Potassium Chloride Carbon Dioxide Anion Gap BUN Creatinine Creat Clearance w eGFR POC Glucometer Random Glucose Lactic Acid Calcium Phosphorus Magnesium Total Bilirubin AST ALT Alkaline Phosphatase Ammonia Creatine Kinase Troponin I Total Protein Albumin Urine Color Urine Appearance Urine pH Ur Specific [place] Urine Protein Urine Glucose (UA) Urine Ketones Urine Blood Urine Nitrite Urine Bilirubin Urine Urobilinogen Ur Leukocyte Esterase Stool Occult Blood Salicylates Opiates Screen Negative Methadone Screen Negative Acetaminophen Barbiturate Screen Negative Phencyclidine Screen Negative Ur Amphetamines Screen Negative MDMA (Ecstasy) Screen Negative Benzodiazepines Screen Negative Cocaine Screen Negative U Marijuana (THC) Screen Negative Acetone, Qual 02/01/19 02/01/19 02/01/19 11:35 11:35 11:35 WBC RBC Hgb Hct MCV MCH MCHC RDW Plt Count MPV Absolute Neuts (auto) Neutrophils % Lymphocytes % Monocytes % Eosinophils % Basophils % Nucleated RBC % Hypochromia Platelet Estimate Polychromasia Poikilocytosis Anisocytosis Microcytosis Macrocytosis PT with INR INR PTT (Actin FS) Sodium 138 Potassium 4.7 Chloride 106 Carbon Dioxide 25 Anion Gap 7 L BUN 40 H Creatinine 1.3 Creat Clearance w eGFR 41.78 POC Glucometer Random Glucose 367 H* Lactic Acid 2.4 H* Calcium 9.1 Phosphorus 3.2 Magnesium 1.9 Total Bilirubin 0.3 AST 12 L ALT 22 Alkaline Phosphatase 33 L Ammonia < 10.00 L Creatine Kinase 22 L Troponin I < 0.02 Total Protein 7.5 Albumin 3.7 Urine Color Urine Appearance Urine pH Ur Specific [place] Urine Protein Urine Glucose (UA) Urine Ketones Urine Blood Urine Nitrite Urine Bilirubin Urine Urobilinogen Ur Leukocyte Esterase Stool Occult Blood Salicylates < 1.7 L Opiates Screen Methadone Screen Acetaminophen < 2.0 L Barbiturate Screen Phencyclidine Screen Ur Amphetamines Screen MDMA (Ecstasy) Screen Benzodiazepines Screen Cocaine Screen U Marijuana (THC) Screen Acetone, Qual 02/01/19 02/01/19 11:35 12:55 WBC RBC Hgb Hct MCV MCH MCHC RDW Plt Count MPV Absolute Neuts (auto) Neutrophils % Lymphocytes % Monocytes % Eosinophils % Basophils % Nucleated RBC % Hypochromia Platelet Estimate Polychromasia Poikilocytosis Anisocytosis Microcytosis Macrocytosis PT with INR INR PTT (Actin FS) Sodium Potassium Chloride Carbon Dioxide Anion Gap BUN Creatinine Creat Clearance w eGFR POC Glucometer Random Glucose Lactic Acid 2.8 H* Calcium Phosphorus Magnesium Total Bilirubin AST ALT Alkaline Phosphatase Ammonia Creatine Kinase Troponin I Total Protein Albumin Urine Color Urine Appearance Urine pH Ur Specific [place] Urine Protein Urine Glucose (UA) Urine Ketones Urine Blood Urine Nitrite Urine Bilirubin Urine Urobilinogen Ur Leukocyte Esterase Stool Occult Blood Salicylates Opiates Screen Methadone Screen Acetaminophen Barbiturate Screen Phencyclidine Screen Ur Amphetamines Screen MDMA (Ecstasy) Screen Benzodiazepines Screen Cocaine Screen U Marijuana (THC) Screen Acetone, Qual Negative L Head CT: No acute intracranial pathology. Stable calcified meningioma CXR: No acute patholgoy EKG: Sinus rhythm w/premature supraventricular complexes @ 70bpm. QTc [address] segment elevations or depressions noted. No significant change from previous EKG from 01/22/19 noted. 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 -Altered mental status -unclear etiology. Head CT negative, UA negative, tox screen negative, ammonia negative, neck non-tender -will check B12, RPR. TSH last month was 0.7 -May be secondary to substance abuse not seen on tox screen -Will check MRI brain -Neurology consult -Lactic acid trending up but no signs of infection noted. Vitals stable. -Will start on NS @ 83ml/hr. F/u lactic acids until less than 2 -Hyperglycemia secondary to uncontrolled DM -no anion gap -Ordered 4 units insulin sq now -BGMs, ISS ACHS -Anemia -At baseline, FOBT+, had negative EGD on previous admission -Monitor H/H -HLD -c/w pravastatin -Hx of DVT/PE -c/w eliquis -HTN -c/w lisinopril -DVT ppx -eliquis -FEN -NS @ 83ml/hr -Monitor electrolytes -NPO except for meds until mental status improves -Dispo: M/S obs Visit type - Emergency Visit Emergency Visit: Yes ED Registration Date: 02/01/19 Care time: The patient presented to the Emergency Department on the above date and was hospitalized for further evaluation of their emergent condition. - New Patient This patient is new to me today: Yes Date on this admission: 02/01/19 - Critical Care Critical Care patient: No
[2019-02-01] MEDS: SODIUM CHLORIDE 1,000 ML IV SCH (15:46)
[2019-02-01] MEDS: INSULIN SLIDING SCALE (NOVOLOG) 1 VIAL SQ SCH ×2 (16:33→23:37)
--- NOTE | 2019-02-01 17:15 | PN ---
Teaching Attending Note Name of Resident: Willie Mary ATTENDING PHYSICIAN STATEMENT I saw and evaluated the patient. I reviewed the resident's note and discussed the case with the resident. I agree with the resident's findings and plan as documented. HPI is per ER SUBJECTIVE:59 yo F with PMHx of Gastric bypass (?2004), recurrent anemia, DM, prior EGD/colonoscopy in 05/2018 showing gastric ulcers at anastomotic site/ Possible ischemic colitis, recent PE/LLE DVT s/p IVC filter on eliquis, IDDM, HTN, chronic diarrhea, opioid dependence presented in the ER after her boyfriend called EMS for AMS. no one has been able to reach the boyfriend to obtain collateral information. as per ER MD she was only able to respond with 1 word responses of yes or no. at this time she is able to respond more however is not always responding appropriately. denies CP, SOB, fever, chills, N/V/C/D OBJECTIVE: Last Vital Signs Temp Pulse Resp BP Pulse Ox 98.1 F 61 16 117/50 L 100 02/01/19 10:26 02/01/19 14:29 02/01/19 14:29 02/01/19 14:29 02/01/19 14:29 General NAD A&O x2 (self and location) HEENT dilated pupils, EOMI, PERRL, neck supple CV S1 S2 RRR no murmur/rub/gallop Lungs CTA B/L no wheezing/rales/rhonchi abdomen soft NT/ND Extremities no pedal edema neuro CN II -XII grossly intact. strength and sensation equal in all extremities. unable to complete 2 steps commands ASSESSMENT AND PLAN: 59 yo F with PMHx of Gastric bypass (?2004), recurrent anemia, DM, prior EGD/ colonoscopy in 05/2018 showing gastric ulcers at anastomotic site/Possible ischemic colitis, recent PE/LLE DVT s/p IVC filter on eliquis, IDDM, HTN, chronic diarrhea, opioid dependence presented in the ER after her boyfriend called EMS for AMS. 1. Acute toxic metabolic encephalopathy- unclear etiology. has known hx of using illicit substances she bought off the street. although Utox is negative could have taken something synthetic. intial Head CT is negative, would repeat as could had CVA with hx of hypercoagability and not compliant [facility] medications. low suspicion for meningitis or other infection. sugar is high but not to the degree that could explain her symptoms. she is slowly improving. consult neuro. recent TSH/vit B12 is normal. check RPR 2. Lactic acidosis-no obvious source of etiology. hydrate. repeat level 3. dehydration- start ivf. monitor 4. anemia of chronic disease and iron def- received venofer recent admission. hgb at baseline. monitor. will need repeat iron studies in the future 5. DM- not compliant iw insulin at home. states she takes it but cant verify dosing. cont BGM and iss 6. HTN- controlled. cont home medications 7. DVT ppx- eliquis
--- NOTE | 2019-02-01 17:16 | CON.NEURO ---
Consult Consult Specialty:: Lonnie Referred by:: ER - History of Present Illness History of Present Illness: 59-year-old right-handed female patient with present medical history significant for Coronary artery disease Hypertension Osteoarthritis Diabetes mellitus History of opiate medicine dependency Presented with altered mental status being called by her boyfriend patient put in by 911 patient was seen in the emergency room. 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 2nd hand smoke) Gastrointestinal: Yes: Other (morbid obesity; colon polyps; ischemic colitis with sigmoid/left colon ulcers, 06/17 postanastomosis small bowle ulcers) Hepatobiliary: Yes: Cholelithiasis (s/op GB surgery) Renal/: Yes: Other (ELLA) Infectious Disease: Yes: Other (PPD + per previous records) Psych: Yes: Anxiety, Depression Musculoskeletal: Yes: Chronic low back pain, Other (Lt shoulder pain, ?injury 5m ago) Endocrine: Yes: Diabetes Mellitus Additional Medical History: Cataract. 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 History of Recent Travel: No Home Medications - Allergies Allergies/Adverse Reactions: Allergies Allergy/AdvReac Type Severity Reaction Status Date / Time No Known Allergies Allergy Verified 09/06/18 15:25 - Home Medications Home Medications: Ambulatory Orders Duloxetine HCl [Cymbalta] 30 mg PO DAILY 06/25/18 Ferrous Sulfate [Feosol] 325 mg PO DAILY #30 ud 07/15/18 Apixaban [Eliquis] 5 mg PO BID #60 tablet 08/06/18 Lisinopril 2.5 mg PO DAILY #30 tablet 08/06/18 Pravastatin Sodium [Pravachol -] 80 mg PO HS 09/07/18 Pantoprazole Sodium [Protonix -] 40 mg PO DAILY #30 tablet.ec 09/16/18 Insulin Glargine,Hum.rec.anlog [Lantus] 14 unit SQ HS 01/25/19 Family Disease History - Family Disease History Family History: Unable to Obtain Family Disease History: CA: Brother (1, leukemia), Other: Father (: 52: [place] ? h/o crohn's ), Mother (Alive: healthy), Brother, Sister (2, healthy) Review of Systems - Review of Systems Constitutional: reports: No Symptoms Eyes: reports: No Symptoms Musculoskeletal: reports: Back Pain, Joint Swelling Physical Exam-Neuro Vital Signs: Vital Signs Temperature 98.1 F 02/01/19 10:26 Pulse Rate 61 02/01/19 14:29 Respiratory Rate 16 02/01/19 14:29 Blood Pressure 117/50 L 02/01/19 14:29 O2 Sat by Pulse Oximetry (%) 100 02/01/19 14:29 Constitutional: Yes: Well Nourished Neck: Yes: WNL Labs: CBC, BMP 02/01/19 11:35 02/01/19 11:35 INR, PTT INR 1.15 (0.83-1.09) H 02/01/19 11:35 - Neuro Exam Level Of Consciousness: Yes: Oriented to Person, Oriented to Place, Oriented to Time Eyes: Yes: PERRLA Speech: WNL Dominant Hand: Right Cranial Nerves II-XII Intact: Yes Gag: Present DTR's: 1+ Left Bicep, 1+ Right Bicep, 1+ Left Tricep, 1+ Right Tricep Response to light touch: Normal Response to pain prick: Normal Response to temperature: Abnormal Response to vibration: Abnormal Motor Strength: 3/5: Left Arm, Right Arm, Left Leg, Right Leg Gait: Deferred Imaging - Results Cat Scan: Image Reviewed Problem List - Problems (1) Altered mental status Assessment/Plan: Dont know her baseline U tox is neg Will get 1. MRI brain no chad 2. narcan trial 3. EEG 4. Seziure precaution 5. Follow up [facility] cultures Code(s): R41.82 - ALTERED MENTAL STATUS, UNSPECIFIED Qualifiers: Altered mental status type: unspecified Qualified Code(s): R41.82 - Altered mental status, unspecified
[2019-02-01] MEDS ORDERED: ATORVASTATIN CA 20 MG TABLET (FP) PO SCH (22:00)
[2019-02-01] MEDS ORDERED: ATORVASTATIN CA 10 MG TABLET (FP) ONE (23:28)
[2019-02-01] MEDS ORDERED: APIXABAN 5 MG TABLET PO ONE (23:28)
[2019-02-01] MEDS ORDERED: ACETAMINOPHEN 500 MG TABLET (FP) PO STA (23:31)
[2019-02-01] MEDS: APIXABAN 5 MG TABLET PO SCH (23:37)
[2019-02-02 06:32] LABS: ALK PHOS 46 U/L (45-117); ANION GAP 9 MMOL/L (8-16); BILIRUBIN,TOTAL 0.3 mg/dL (0.2-1); BLOOD UREA NITROGEN 22 mg/dL (7-18); CALCIUM 8.3 mg/dL (8.5-10.1); CHLORIDE 108 mmol/L (98-107); CO2 22 mmol/L (21-32); CREATININE 0.8 mg/dL (0.55-1.3); GLUCOSE,RANDOM 202 mg/dL (74-106); POTASSIUM 3.9 mmol/L (3.5-5.1); SGOT/AST 18 U/L (15-37); SGPT/ALT 22 U/L (13-61); SODIUM 138 mmol/L (136-145); TOT PROT 5.3 g/dl (6.4-8.2)
[2019-02-02] MEDS ORDERED: ACETAMINOPHEN 325 MG TABLET (FP) ONE (06:39)
[2019-02-02 06:52] LABS: BASO % 0.9 % (0-2.0); EOS % 3.7 % (0-4.5); HEMOGLOBIN 8.8 GM/dL (10.7-15.3); LYMPH % 36.5 % (8-40); MCH 24.8 pg (25.7-33.7); MCHC 31.5 g/dl (32.0-36.0); MEAN CELL VOLUME 78.9 fl (80-96); MEAN PLT VOLUME 9.5 fl (7.5-11.1); MONO % 5.3 % (3.8-10.2); NEUT % 53.6 % (42.8-82.8); PLATELET COUNT 201 K/MM3 (134-434); RBC 3.55 M/mm3 (3.60-5.2); WHITE BLOOD COUNT 4.8 K/mm3 (4.0-10.0)
[2019-02-02] MEDS: INSULIN SLIDING SCALE (NOVOLOG) 1 VIAL SQ SCH ×3 (07:00→16:53)
[2019-02-02] MEDS ORDERED: INSULIN (NOVOLOG) ASPART 100 UNITS/ML 10ML VIAL ONE ×2 (07:04→11:10)
[2019-02-02] MEDS ORDERED: LISINOPRIL 5 MG TABLET (FP) PO SCH (10:00)
[2019-02-02] MEDS ORDERED: DULoxetine HCL 30 MG CAPSULE.DR (FP) PO SCH (10:00)
[2019-02-02] MEDS ORDERED: DULoxetine HCL 60 MG CAPSULE.DR PO SCH (10:00)
[2019-02-02] MEDS: SODIUM CHLORIDE 1,000 ML IV SCH (10:39)
[2019-02-02] MEDS ORDERED: PT OWN MED DRAWER 7, Y5N ONE ×3 (11:32→13:04)
[2019-02-02] MEDS ORDERED: ACETAMINOPHEN 325 MG TABLET (FP) PO PRN (12:00)
[2019-02-02 12:31] VITALS: BMI 29.0
[2019-02-02] MEDS ORDERED: APIXABAN 2.5 MG TABLET PO SCH (12:33)
[2019-02-02] MEDS: APIXABAN 5 MG TABLET PO SCH (12:58)
--- NOTE | 2019-02-02 12:59 | PN ---
Teaching Attending Note Name of Resident: Radha Kwon ATTENDING PHYSICIAN STATEMENT I saw and evaluated the patient. I reviewed the resident's note and discussed the case with the resident. I agree with the resident's findings and plan as documented. SUBJECTIVE:asymptomatic. states she purchased some percocet off her neighbor and took them yesterday (15mg total) prior to the event. states she spoke with her boyfriend who told her she was acting out of character even considering she took opiates. states she felt back to normal last night. states no changes to her medications and has been compliant. denies anything out of the usual the past few days since leaving the hospital. denies CP, SOB, fever, chills, N/V/C?D OBJECTIVE: Last Vital Signs Temp Pulse Resp BP Pulse Ox 99.6 F 72 20 140/75 100 02/02/19 12:00 02/02/19 12:00 02/02/19 12:00 02/02/19 12:00 02/01/19 14:29 General NAD A&O x3 HEENT EOMI, PERRL, CV S1 S2 RRR no murmur/rub/gallop Lungs CTA B/L no wheezing/rales/rhonchi abdomen soft NT/ND Extremities no pedal edema ASSESSMENT AND PLAN: 59 yo F with PMHx of Gastric bypass (?2004), recurrent anemia, DM, prior EGD/ colonoscopy in 05/2018 showing gastric ulcers at anastomotic site/Possible ischemic colitis, recent PE/LLE DVT s/p IVC filter on eliquis, IDDM, HTN, chronic diarrhea, opioid dependence presented in the ER after her boyfriend called EMS for AMS. 1. Acute toxic metabolic encephalopathy- symptoms now resolved and is back to baseline. could possible be from opiate use however can not r/o Intracranial pathology. recommended MRI however pt is refusing. d/w patient what we are looking for and she verbalized understanding of concerns but states she feels better now and just wants to go home. 2. +Flu last hospital stay- did not complete tamiflu course. states she is not symptomatic (no cough, fever, chills, myalgias). will repeat flu swab however not sure treatment is indicative of needing to treat as she is not symptomatic 3. Lactic acidosis-no obvious source of etiology. resolved 4. dehydration- resolved 5. anemia of chronic disease and iron def- received venofer recent admission. hgb at baseline. monitor. will need repeat iron studies in the future 6. DM- not compliant iwth insulin at home. states she takes it but cant verify dosing. cont BGM and iss 7. HTN- controlled. cont home medications 8. DVT ppx- eliquis 9. d/c home. stressed importance of not taking pills not prescribed to her and to f/u wtih PMD this week
--- NOTE | 2019-02-02 14:11 | DS ---
Physical Exam: SUBJECTIVE: Patient seen this morning and at baseline mentally. Patient reports she took 3 percocet prior to coming to the hospital. No acute events overnight. OBJECTIVE: Vital Signs Temperature 98 F 02/02/19 14:13 Pulse Rate 92 H 02/02/19 14:13 Respiratory Rate 20 02/02/19 14:13 Blood Pressure 138/77 02/02/19 14:13 O2 Sat by Pulse Oximetry (%) 100 02/01/19 14:29 PHYSICAL EXAM GENERAL: The patient is awake, alert, and fully oriented, in no acute distress. HEAD: Normal with no signs of trauma. EYES: PERRL, extraocular movements intact, LUNGS: Breath sounds equal, clear to auscultation bilaterally, no wheezes, HEART: Regular rate and rhythm, S1, S2 without murmur, rub or gallop. ABDOMEN: Soft, nontender, nondistended, normoactive bowel sounds, EXTREMITIES: 2+ pulses, warm, well-perfused, no edema. Tenderness at left shoulder NEUROLOGICAL: Cranial nerves II through XII grossly intact. Normal speech, gait not observed. PSYCH: Normal mood, normal affect. SKIN: Warm, dry, normal turgor, no rashes or lesions noted. LABS CBC, BMP 02/02/19 05:30 02/02/19 05:30 HOSPITAL COURSE: Date of Admission:02/01/19 Patient admitted for altered mental status. Patient had head CT negative. Upon discussion patient reports she took 3 unprescribed percocet that she bought from her neighbor. Patient returned to baseline the next day. Patient evaluated by Dr. Fleming who will follow up with patient as an outpatient. Influenza negative Head CT: no acute pathology Urine CX: no growth Date of Discharge: 02/02/19 Minutes to complete discharge: 35 Discharge Summary Reason For Visit: AMS Condition: Improved - Instructions Diet, Activity, Other Instructions: You were admitted to the hospital for altered mental status. We believe this was due to taking the percocet. You should not take medication that is not prescribed to you, it is very dangerous. You had imaging of your head done (CT scan) that did not show anything abnormal. You should make an appointment to follow up with Dr. Fleming in one week. Please make an appointment to follow up with primary care physician, Dr. Kwon, for morning. Please continue your home medications as prescribed. Please return to the Emergency Department with any headaches, confusion, nausea , vomiting, diarrhea. Referrals: [facility] [place] [facility] [place] [Provider Group] Emmanuel Fleming MD [Staff Physician] - 1 Week Disposition: HOME - Home Medications Comprehensive Discharge Medication List: Ambulatory Orders Duloxetine HCl [Cymbalta] 30 mg PO DAILY 06/25/18 Ferrous Sulfate [Feosol] 325 mg PO DAILY #30 ud 07/15/18 Apixaban [Eliquis] 5 mg PO BID #60 tablet 08/06/18 Lisinopril 2.5 mg PO DAILY #30 tablet 08/06/18 Pravastatin Sodium [Pravachol -] 80 mg PO HS 09/07/18 Pantoprazole Sodium [Protonix -] 40 mg PO DAILY #30 tablet.ec 09/16/18 Insulin Glargine,Hum.rec.anlog [Lantus] 14 unit SQ HS 01/25/19 This patient is new to me today: Yes Date on this admission: 02/03/19 Emergency Visit: Yes ED Registration Date: 02/01/19 Care time: The patient presented to the Emergency Department on the above date and was hospitalized for further evaluation of their emergent condition. Critical Care patient: No - Discharge Referral Referred to [facility] No
[2019-02-02 14:14] VITALS: BP 138/77; PULSE 92; TEMP 98
== END 2019-02-02 18:02 | disposition home or self-care (01) ==
LOC: JER 10:20 → JERBED 13:49 → J7W 02-02 09:40
PROVIDERS: ADMIT Internal Medicine; ATTEND Internal Medicine
PROC: 3E0337Z Introduction of Electrolytic and Water Balance Substance into Peripheral Vein, Percutaneous Approach (ICD-10-PCS; principal; 2019-02-01)
PROC: 3E013VG Introduction of Insulin into Subcutaneous Tissue, Percutaneous Approach (ICD-10-PCS; 2019-02-01)
DX: R41.82 Altered mental status, unspecified (principal); I10 Essential (primary) hypertension; E78.5 Hyperlipidemia, unspecified; E11.65 Type 2 diabetes mellitus with hyperglycemia; G93.41 Metabolic encephalopathy; E87.2 Acidosis; E86.0 Dehydration; D63.8 Anemia in other chronic diseases classified elsewhere; I25.10 Atherosclerotic heart disease of native coronary artery without angina pectoris; M19.90 Unspecified osteoarthritis, unspecified site; F11.21 Opioid dependence, in remission; K21.9 Gastro-esophageal reflux disease without esophagitis; F03.90 Unspecified dementia, unspecified severity, without behavioral disturbance, psychotic disturbance, mood disturbance, and anxiety; Z79.4 Long term (current) use of insulin; Z95.828 Presence of other vascular implants and grafts; Z86.711 Personal history of pulmonary embolism; Z86.718 Personal history of other venous thrombosis and embolism; Z98.84 Bariatric surgery status
CPT/HCPCS: 36415; 70450-TC; 71045-TC-FY; 80053; 80307; 81003; 82009; 82140; 82272; 82550; 82607; 82962; 83605; 83735; 84100; 84484; 85025; 85610; 85730; 86593; 87086; 87804; 93005; 93010; 95816; 96372; 99284-25; G0378; J7030